=== PATIENT | female | born 1955 | race Caucasian/White ===

== ENCOUNTER → 2019-07-29 11:00 | Outpatient (BNVA) | payer MEDICARE, SELFPAY | PROVIDERS: Family Provider Registered Nurse; PCP Registered Nurse; Visit Provider Registered Nurse | DX: E11.9 Type 2 diabetes mellitus without complications (principal); I10 Essential (primary) hypertension; M54.5 Low back pain; J44.9 Chronic obstructive pulmonary disease, unspecified; E66.01 Morbid (severe) obesity due to excess calories; Z68.41 Body mass index [BMI] 40.0-44.9, adult | CPT/HCPCS: 80053; 83036 ==

== ENCOUNTER 2019-08-01 12:46 | Outpatient (RCR) | payer MEDICARE, SELFPAY | END 2019-08-24 23:59 | disposition home or self-care (01) | LOC: SPT 12:46 | PROVIDERS: Family Provider Registered Nurse; PCP Registered Nurse; Referring Provider Registered Nurse; Visit Provider Registered Nurse | DX: M54.5 Low back pain (principal) | CPT/HCPCS: 97110; 97161; G0283 ==

== ENCOUNTER 2019-08-19 12:07 | Outpatient (CLI) | payer MEDICARE, SELFPAY ==
--- NOTE | 2019-08-19 12:22 | XRR_ITS ---
PROCEDURE INFORMATION: Exam: XR Left Foot Exam date and time: 08/19/2019 12:35 PM Age: 64 years old Clinical indication: Left lateral heel pain x 2 weeks. TECHNIQUE: Imaging protocol: XR Left foot. Views: 1 or 2 views. COMPARISON: No relevant prior studies available. FINDINGS: Bones/joints: No fracture. No dislocation. Minimal degenerative change in the midfoot. There is an Achilles tendon insertion enthesophyte. Soft tissues: No acute soft tissue abnormality. XR/XR foot LT 2V [id number] IMPRESSION: No acute osseous abnormality.
== END 2019-08-19 12:08 | disposition home or self-care (01) ==
LOC: RAD 12:10
PROVIDERS: Family Provider Registered Nurse; PCP Registered Nurse
DX: M79.672 Pain in left foot (principal)
CPT/HCPCS: 73620

== ENCOUNTER 2019-08-21 16:05 | Outpatient (REF) | payer SELFPAY ==
[2019-08-21 21:30] LABS: Estmated Average Glucose 128; Hemoglobin A1C 6.1 % (4.0-6.0)
[2019-08-22 05:09] LABS: Chol HDL Ratio 3.11 mg/dL (0.0-4.40); Cholesterol 146 mg/dL (0-200); Glucose 106 mg/dL (65-115); HDL Cholesterol 47 mg/dL (60-100); LDL Cholesterol Calculated 72 mg/dL (50-129); LDL HDL Ratio 1.53 RATIO (0.00-3.22); Triglycerides 135 mg/dL (0-150)
== END 2019-08-21 16:06 | disposition home or self-care (01) ==
LOC: LAB 16:05
PROVIDERS: Family Provider Registered Nurse; PCP Registered Nurse; Visit Provider Dermatology
DX: Z13.9 Encounter for screening, unspecified (principal)
CPT/HCPCS: 80061; 82947; 83036

== ENCOUNTER 2019-08-25 06:00 | Outpatient (RCR) | payer MEDICARE, SELFPAY | END 2019-09-24 23:59 | disposition home or self-care (01) | LOC: SPT 06:00 | PROVIDERS: Family Provider Registered Nurse; PCP Registered Nurse; Referring Provider Registered Nurse; Visit Provider Registered Nurse | DX: M54.5 Low back pain (principal) | CPT/HCPCS: 97110; G0283 ==

== ENCOUNTER 2019-09-27 13:39 | Outpatient (CLI) | payer MEDICARE, SELFPAY ==
--- NOTE | 2019-09-27 13:55 | MR_ITS ---
WS: [id number] MRI LUMBAR SPINE NONCONTRAST TECHNIQUE: Sagittal T1, T2 and STIR imaging. Axial T1 and T2 imaging. CLINICAL INFORMATION: lumbar back pain COMPARISON: None. FINDINGS: Mild lumbar curve. No acute compression. No high-grade central canal stenosis. Small disc protrusions in the lower thoracic spine at T10-11, T11-T12, and T12-L1. L1-L2: Mild annular bulging with slight effacement of ventral thecal sac. Mild facet arthropathy. Spi nal canal and foramen are patent. L2-L3: No significant disc bulging. Mild facet arthropathy. Spinal canal and foramen are patent. L3-L4: Mild disc bulging with slight effacement of ventral thecal sac. Narrowing subarticular recess bilaterally. Moderate facet arthropathy. Small right foraminal protrusion with moderate right foramin al narrowing. Contact of the exiting L3 nerve root. Left foramen is patent. L4-L5: Left eccentric disc bulging L4-5 encroaches on the far exiting left L4 nerve root. Mild to mod erate facet arthropathy. Right foramen is patent. Spinal canal is patent. L5-S1: Mild disc bulging with osteophytic ridging. Slight effacement of ventral thecal sac. Moderate left greater than right foraminal narrowing. Slight contact exiting L5 nerve roots bilaterally. Moder ate to advanced facet arthropathy. Moderate spondylitic changes cervical spine with disc osteophyte protrusion at C6-C7 and moderate [place] tral canal stenosis. Slight contact and indentation on the cervical cord. This can be further evaluat ed with cervical spine MRI. MR/MR lumbar spine wo con* [id number] IMPRESSION: 1. Mild lumbar curve. No acute compression. No high-grade central canal stenos is. 2. Right foraminal disc protrusion L3-4 contacts the exiting right L3 nerve ro ot with moderate right foraminal narrowing. Correlation for right L3 nerve root symptoms. 3. Left eccentric disc bulging L4-5 encroaches on the exiting L4 nerve root wi th mild to moderate left foraminal narrowing. 4. Disc osteophyte complex L5-S1 with osteophytic ridging. Moderate bilateral foraminal narrowing left greater than right with contact of the exiting L5 nerv e roots. 5. Advanced facet arthropathy L5-S1. 6. Central disc osteophyte protrusion in the cervical spinal sky diver imaging at C6-7 with moderate central canal stenosis and contact of the cervical cord. Thi s can be further evaluated with cervical spine MRI.
== END 2019-09-27 13:40 | disposition home or self-care (01) ==
LOC: RADWPI 13:45
PROVIDERS: Family Provider Registered Nurse; PCP Registered Nurse; Visit Provider Registered Nurse
DX: M51.26 Other intervertebral disc displacement, lumbar region (principal); V89.2XXD Person injured in unspecified motor-vehicle accident, traffic, subsequent encounter; M25.78 Osteophyte, vertebrae; M47.817 Spondylosis without myelopathy or radiculopathy, lumbosacral region
CPT/HCPCS: 72148

== ENCOUNTER → 2019-10-11 11:49 | Outpatient (BNVA) | payer MEDICARE, SELFPAY | PROVIDERS: Family Provider Registered Nurse; PCP Registered Nurse; Referring Provider Registered Nurse; Visit Provider Anesthesiology Pain Medicine | DX: M43.06 Spondylolysis, lumbar region (principal); M47.816 Spondylosis without myelopathy or radiculopathy, lumbar region; M54.16 Radiculopathy, lumbar region; E11.40 Type 2 diabetes mellitus with diabetic neuropathy, unspecified; M47.812 Spondylosis without myelopathy or radiculopathy, cervical region; Z79.891 Long term (current) use of opiate analgesic | CPT/HCPCS: 99204 ==

== ENCOUNTER → 2019-10-22 09:41 | Outpatient (BNVA) | payer MEDICARE, SELFPAY | PROVIDERS: Family Provider Registered Nurse; PCP Registered Nurse; Visit Provider Specialist | DX: G43.019 Migraine without aura, intractable, without status migrainosus (principal); Z87.891 Personal history of nicotine dependence | CPT/HCPCS: 99213 ==

== ENCOUNTER 2019-11-04 11:10 | Outpatient (CLI) | payer MEDICARE, SELFPAY ==
--- NOTE | 2019-11-04 11:19 | CT_ITS ---
WS: [id number] CT LUNG CANCER SCREENING DLP: 98.35 mGy.cm DIvol: 2.73 mGy CLINICAL INFORMATION SCREENING VISIT: Baseline COMPARISON: None available. FINDINGS Diagnostic quality: Satisfactory Comments: None. Lung Nodules: 5 mm pleural-based nodule LEFT lower lobe, image 260 of series 3. May or may not contai n a central calcification. There is an additional less than 2 mm nodule periphery LEFT upper lobe, im age 83 of series 3. Benign granuloma periphery RIGHT upper lobe. Lungs: Mild emphysema. Mild pulmonary hyperexpansion. Heart: Mildly enlarged cardiac chambers. There is increased pericardial fat deposition. Multiple mode rate atherosclerosis of the [place] coronary arteries. Other findings: Enlarged pulmonary artery with a maximum diameter of 3.2 cm. No visualized adenopathy . CT/CT lung screening [id number] IMPRESSION: LUNG-RADS: 2S-Benign Appearance or Behavior with Significant Findings FOLLOW UP: 12 Month: Continue annual screening with LDCT 1. Mild pulmonary hypertension. 2. Multiple moderate coronary artery atherosclerosis.
== END 2019-11-04 11:11 | disposition home or self-care (01) ==
LOC: RAD 11:13
PROVIDERS: Family Provider Registered Nurse; PCP Registered Nurse; Visit Provider Registered Nurse
DX: Z12.2 Encounter for screening for malignant neoplasm of respiratory organs (principal); Z87.891 Personal history of nicotine dependence; I27.20 Pulmonary hypertension, unspecified; I25.10 Atherosclerotic heart disease of native coronary artery without angina pectoris; J43.8 Other emphysema
CPT/HCPCS: 99214; G0297

== ENCOUNTER → 2019-11-19 13:44 | Outpatient (BNVA) | payer MEDICARE, SELFPAY | PROVIDERS: Family Provider Registered Nurse; PCP Registered Nurse; Visit Provider Anesthesiology Pain Medicine | DX: M47.816 Spondylosis without myelopathy or radiculopathy, lumbar region (principal); M54.5 Low back pain | CPT/HCPCS: 64493; 64494; 64495; J2001; J3490 ==

== ENCOUNTER → 2019-12-04 09:21 | Outpatient (BNVA) | payer MEDICARE, SELFPAY | PROVIDERS: Family Provider Registered Nurse; PCP Registered Nurse; Visit Provider Anesthesiology Pain Medicine | DX: M54.16 Radiculopathy, lumbar region (principal); M47.816 Spondylosis without myelopathy or radiculopathy, lumbar region; M43.06 Spondylolysis, lumbar region; M47.812 Spondylosis without myelopathy or radiculopathy, cervical region; E11.40 Type 2 diabetes mellitus with diabetic neuropathy, unspecified | CPT/HCPCS: 99213; 99214 ==

== ENCOUNTER → 2019-12-13 13:38 | Outpatient (BNVA) | payer MEDICARE, SELFPAY | PROVIDERS: Family Provider Registered Nurse; PCP Registered Nurse; Visit Provider Anesthesiology Pain Medicine | DX: M47.816 Spondylosis without myelopathy or radiculopathy, lumbar region (principal); M54.5 Low back pain; Z79.891 Long term (current) use of opiate analgesic | CPT/HCPCS: 64493; 64494; 64495; J2001; J3490 ==

== ENCOUNTER → 2019-12-18 08:51 | Outpatient (BNVA) | payer MEDICARE, SELFPAY | PROVIDERS: Family Provider Registered Nurse; PCP Registered Nurse; Visit Provider Registered Nurse | DX: E11.9 Type 2 diabetes mellitus without complications (principal) | CPT/HCPCS: 80053; 80061; 83036; 85025 ==

== ENCOUNTER → 2019-12-26 13:46 | Outpatient (BNVA) | payer MEDICARE, SELFPAY | PROVIDERS: Family Provider Registered Nurse; PCP Registered Nurse; Visit Provider Anesthesiology Pain Medicine | DX: M47.812 Spondylosis without myelopathy or radiculopathy, cervical region (principal); M43.06 Spondylolysis, lumbar region; M47.816 Spondylosis without myelopathy or radiculopathy, lumbar region; M54.16 Radiculopathy, lumbar region; E11.40 Type 2 diabetes mellitus with diabetic neuropathy, unspecified; Z79.891 Long term (current) use of opiate analgesic | CPT/HCPCS: 99213; 99214 ==

== ENCOUNTER → 2020-01-14 09:38 | Outpatient (BNVA) | payer MEDICARE, SELFPAY | PROVIDERS: Family Provider Registered Nurse; PCP Registered Nurse; Visit Provider Anesthesiology Pain Medicine | DX: M47.816 Spondylosis without myelopathy or radiculopathy, lumbar region (principal); M43.06 Spondylolysis, lumbar region | CPT/HCPCS: 64635; 64636; J1030 ==

== ENCOUNTER 2020-01-23 09:17 | Outpatient (CLI) | payer MEDICARE, SELFPAY ==
--- NOTE | 2020-01-23 09:28 | USCV_ITS ---
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 PROCEDURES: Venous duplex imaging was performed in only the right lower extremity. The following venous structures were evaluated: common femoral vein, profunda vein, proximal portion of the greater saphenous vein, superficial femoral vein, and the popliteal vein. In addition, the posterior tibial and peroneal trunk were evaluated. Serial compression, augmentation maneuvers, and spectral Doppler flow evaluation were performed. FINDINGS: Normal 2-D Doppler and augmentation and compressibility throughout the lower extremity venous structures. Additional imaging through the proximal calf veins also reveals no thrombus. Limited evaluation of the greater saphenous vein is patent with no thrombus.. CONCLUSIONS No evidence of right lower extremity DVT. Sai Boyle MD (Electronically Signed) Final Date: 23 January 2020 11:26 S
== END 2020-01-23 09:18 | disposition home or self-care (01) ==
LOC: RAD 09:20
PROVIDERS: Family Provider Registered Nurse; PCP Registered Nurse; Visit Provider Nurse Practitioner Family
DX: M79.661 Pain in right lower leg (principal)
CPT/HCPCS: 93971

== ENCOUNTER → 2020-01-27 13:35 | Outpatient (BNVA) | payer MEDICARE, SELFPAY | PROVIDERS: Family Provider Registered Nurse; PCP Registered Nurse; Visit Provider Anesthesiology Pain Medicine | DX: M47.816 Spondylosis without myelopathy or radiculopathy, lumbar region (principal); M43.06 Spondylolysis, lumbar region; M54.16 Radiculopathy, lumbar region; M47.812 Spondylosis without myelopathy or radiculopathy, cervical region | CPT/HCPCS: 64635; 64636; 99213; J1030 ==

== ENCOUNTER → 2020-02-12 08:27 | Outpatient (BNVA) | payer MEDICARE, SELFPAY | PROVIDERS: Family Provider Registered Nurse; PCP Registered Nurse; Visit Provider Anesthesiology Pain Medicine | DX: M43.06 Spondylolysis, lumbar region (principal); M47.816 Spondylosis without myelopathy or radiculopathy, lumbar region; M54.16 Radiculopathy, lumbar region; M47.812 Spondylosis without myelopathy or radiculopathy, cervical region | CPT/HCPCS: 99213 ==

== ENCOUNTER 2020-03-03 11:07 | Outpatient (CLI) | payer MEDICARE, SELFPAY ==
--- NOTE | 2020-03-03 11:14 | XRR_ITS ---
PROCEDURE INFORMATION: Exam: XR Pelvis Exam date and time: 03/03/2020 11:39 AM Age: 64 years old Clinical indication: Pelvic pain; Patient HX: Since Monday; Additional info: Pelvis pain TECHNIQUE: Imaging protocol: XR pelvis. Views: 1 or 2 view. COMPARISON: CR Hip 2-3v LEFT wwo Pelv* [id number] 05/28/2018 12:35 PM FINDINGS: Bones/joints: No fracture. No hip dislocation. Minimal hip joint degeneration bilaterally. The symphysis pubis and sacroiliac joints are not diastatic. Findings compatible with osteitis pubis. Slight irregularity of the margins of the right sacroiliac joint with subchondral sclerosis suggesting unilateral sacroiliitis. Soft tissues: No acute soft tissue abnormality. XR/XR pelvis min 3V [id number] IMPRESSION: No acute osseous abnormality. See above for other information and correlate with the location of the patient's pelvic pain.
--- NOTE | 2020-03-03 11:14 | XRR_ITS ---
PROCEDURE INFORMATION: Exam: XR Lumbosacral Spine, 2 or 3 Views Exam date and time: 03/03/2020 11:39 AM Age: 64 years old Clinical indication: Low back pain; Patient HX: Since Monday; Additional info: Lumbar and pelvis pain TECHNIQUE: Imaging protocol: XR of the lumbosacral spine, 2 or 3 views. COMPARISON: CR - Lumbar Spine 2-3 views* [id number] 06/07/2019 12:49:15 PM FINDINGS: Vertebrae: The lumbar vertebral bodies maintain height and alignment. The facets align normally. There is multilevel disc degeneration, with a vacuum disc at L5-S1. Facet arthropathy is most prominent at L5-S1, and to lesser extent at L3-L4 and L4-L5. No acute fracture. Schmorl's node formation at the superior endplate of the L3 vertebral body. Soft tissues: No acute soft tissue abnormality. Organs: Suspect left nephrolithiasis. Enteric contents projects over the right kidney on the frontal view. XR/XR lumbar spine 2-3V* [id number] IMPRESSION: Multilevel degenerative changes.
== END 2020-03-03 11:08 | disposition home or self-care (01) ==
LOC: RAD 11:12
PROVIDERS: PCP Registered Nurse; Visit Provider Registered Nurse
DX: M54.5 Low back pain (principal); R10.2 Pelvic and perineal pain
CPT/HCPCS: 72100; 72190

== ENCOUNTER 2020-03-11 14:16 | Outpatient (CLI) | payer MEDICARE, SELFPAY ==
--- NOTE | 2020-03-11 14:42 | CT_ITS ---
WS: [id number] CT ABDOMEN PELVIS TECHNIQUE: Noncontrast CT of the abdomen and pelvis with coronal and sagittal reformatted images. CLINICAL INFORMATION: lumbar pain. COMPARISON: None. DLP: 1238.[address] scans at [facility] use at least one of these dose optimization techniques: automat ed exposure control; mA and/or kV adjustment per patient size (includes targeted exams where dose is matched to clinical indication); or iterative reconstruction. FINDINGS: Noncontrast liver is normal. Hepatomegaly with enlargement of the right hepatic lobe. Normal GE junct ion. Lung bases are well aerated. Tiny subpleural pulmonary nodule left lower lobe laterally measurin g 4 mm. Fatty atrophy of the pancreas. Adrenal glands are normal. Nonobstructing left renal parenchymal calcu li the largest measuring 6 mm. No obstructing renal or ureteral calculi. Normal caliber abdominal aor ta. Calcification. Normal small and large bowel. No evidence of small or large bowel obstruction. No periaortic or ingui nal lymphadenopathy. No pelvic lymphadenopathy. No free fluid in the pelvis. Mild spondylitic changes lumbar spine. CT/CT kidney stone [id number] IMPRESSION: 1. No obstructing renal or ureteral calculi. No hydronephrosis in either kidne y. 2. Nonobstructing left renal parenchymal calculi the largest measuring 6 mm. 3. Hepatomegaly with enlargement of the right hepatic lobe. Recommend correlat ion with liver function tests. 4. 4 mm subpleural nodule left lower lobe. Recommend 6 month follow-up. 5. Normal appendix in the right lower quadrant. 6. Sigmoid diverticulosis. No evidence of acute diverticulitis. 7. No other significant findings.
== END 2020-03-11 14:17 | disposition home or self-care (01) ==
LOC: RADWPI 14:21
PROVIDERS: PCP Registered Nurse; Visit Provider Registered Nurse
DX: M54.5 Low back pain (principal); N20.0 Calculus of kidney; R16.0 Hepatomegaly, not elsewhere classified; K57.30 Diverticulosis of large intestine without perforation or abscess without bleeding
CPT/HCPCS: 74176

== ENCOUNTER → 2020-04-10 10:07 | Outpatient (BNVA) | payer MEDICARE, SELFPAY | PROVIDERS: PCP Registered Nurse; Visit Provider Anesthesiology Pain Medicine | DX: M43.06 Spondylolysis, lumbar region (principal); M54.16 Radiculopathy, lumbar region; M47.816 Spondylosis without myelopathy or radiculopathy, lumbar region; M47.812 Spondylosis without myelopathy or radiculopathy, cervical region; E11.40 Type 2 diabetes mellitus with diabetic neuropathy, unspecified; Z79.891 Long term (current) use of opiate analgesic | CPT/HCPCS: 99214 ==

== ENCOUNTER → 2020-04-15 12:31 | Outpatient (BNVA) | payer MEDICARE, SELFPAY | PROVIDERS: PCP Registered Nurse; Visit Provider Anesthesiology Pain Medicine | DX: M54.16 Radiculopathy, lumbar region (principal); Z79.891 Long term (current) use of opiate analgesic | CPT/HCPCS: 64483; 64484; J1040; J3490 ==

== ENCOUNTER → 2020-04-29 10:31 | Outpatient (BNVA) | payer MEDICARE, SELFPAY | PROVIDERS: PCP Registered Nurse; Visit Provider Anesthesiology Pain Medicine | DX: M54.16 Radiculopathy, lumbar region (principal); M47.816 Spondylosis without myelopathy or radiculopathy, lumbar region; M43.06 Spondylolysis, lumbar region; M47.812 Spondylosis without myelopathy or radiculopathy, cervical region; Z79.891 Long term (current) use of opiate analgesic | CPT/HCPCS: 99212; 99213 ==

== ENCOUNTER → 2020-06-23 10:49 | Outpatient (BNVA) | payer MEDICARE, SELFPAY | PROVIDERS: PCP Registered Nurse; Visit Provider Anesthesiology Pain Medicine | DX: M54.5 Low back pain (principal); M54.16 Radiculopathy, lumbar region; M47.816 Spondylosis without myelopathy or radiculopathy, lumbar region; M43.06 Spondylolysis, lumbar region; M47.812 Spondylosis without myelopathy or radiculopathy, cervical region | CPT/HCPCS: 99213 ==

== ENCOUNTER → 2020-07-01 00:01 | Outpatient (BNVA) | payer MEDICARE, SELFPAY | PROVIDERS: PCP Registered Nurse; Visit Provider Registered Nurse | DX: I10 Essential (primary) hypertension (principal); E11.9 Type 2 diabetes mellitus without complications; E55.9 Vitamin D deficiency, unspecified; E78.5 Hyperlipidemia, unspecified | CPT/HCPCS: 80053; 80061; 82306; 83036; 85025 ==

== ENCOUNTER 2020-07-28 09:00 | Outpatient (CLI) | payer MEDICARE, SELFPAY ==
--- NOTE | 2020-07-28 09:10 | XRR_ITS ---
PROCEDURE INFORMATION: Exam: XR Bilateral Knees, Standing AP Exam date and time: 07/28/2020 9:25 AM Age: 65 years old Clinical indication: Pain; Prior surgery; Surgery type: Right knee replacement; Additional info: M25.561 - pain in right knee TECHNIQUE: Imaging protocol: XR of the bilateral knees. Views: Standing AP. COMPARISON: No relevant prior studies available. FINDINGS: Bones/joints: Right knee arthroplasty. Mild degenerative change in the left knee. Soft tissues: Unremarkable soft tissues. XR/[place] [id number] IMPRESSION: Right knee arthroplasty and mild degenerative change in the left knee.
== END 2020-07-28 09:01 | disposition home or self-care (01) ==
PROVIDERS: PCP Registered Nurse; Visit Provider Registered Nurse
DX: M25.562 Pain in left knee (principal); M25.561 Pain in right knee; Z96.651 Presence of right artificial knee joint
CPT/HCPCS: 73565

== ENCOUNTER → 2020-08-18 11:16 | Outpatient (BNVA) | payer MEDICARE, SELFPAY | PROVIDERS: PCP Registered Nurse; Visit Provider Anesthesiology Pain Medicine | DX: M54.16 Radiculopathy, lumbar region (principal); M47.816 Spondylosis without myelopathy or radiculopathy, lumbar region; M43.06 Spondylolysis, lumbar region; M47.812 Spondylosis without myelopathy or radiculopathy, cervical region; Z79.891 Long term (current) use of opiate analgesic | CPT/HCPCS: 99214 ==

== ENCOUNTER 2020-09-18 08:23 | Outpatient (CLI) | payer MEDICARE, SELFPAY ==
--- NOTE | 2020-09-18 08:45 | US_ITS ---
WS: [id number] RIGHT UPPER QUADRANT ULTRASOUND HISTORY: R10.11 - Right upper quadrant pain COMPARISON: None available. Liver: 23.3 cm in length. Markedly enlarged and severely fatty liver with attenuation. This is a very difficult evaluation of the liver due to marked attenuation. The entire liver is not visualized. Gallbladder: Normally distended gallbladder with no stones or wall thickening. CBD: 0.4 cm Pancreas: Not visualized. Right kidney: 12.3 cm in length. Limited visualization. No abnormality identified. Aorta and IVC: Unremarkable abdominal aorta and IVC. No ascites. US/US gall bladder [id number] IMPRESSION: 1. Very limited evaluation of the RIGHT upper quadrant due to body habitus. 2. Severe hepatomegaly and hepatic steatosis.
--- NOTE | 2020-09-18 10:00 | CT_ITS ---
WS: [id number] CT CHEST WITHOUT INTRAVENOUS CONTRAST HISTORY: R91.1 - Solitary pulmonary nodule TECHNIQUE: Contiguous 5 mm axial imaging performed on the thorax. Coronal and sagittal reformats are submitted. All CT scans at [facility] use at least one of these dose optimization techniq ues: automated exposure control; mA and/or kV adjustment per patient size (includes targeted exams wh ere dose is matched to clinical indication); or iterative reconstruction. CONTRAST: None DLP: 1035.16 mGy.cm COMPARISON: 11/04/2019 Lungs and central airway: Diffuse haziness and mosaic attenuation bilaterally and chronic emphysema. Stable granuloma measures 2 mm in the RIGHT upper lobe. Stable noncalcified 5 mm nodule in the periph katie of the LEFT lower lobe which is also described on 11/04/2019. Pleura: Normal. No pleural effusion. Heart and pericardium: Mild enlargement of the heart. Mediastinum and kaley: Small benign lymph nodes. Vessels: Mild atherosclerosis aorta. Mild enlargement of the pulmonary artery. Chest wall and lower neck: No soft tissue masses. Upper abdomen: Severe hepatic steatosis and hepatomegaly. Bilateral nonobstructing renal calcificatio ns in the upper poles. No adrenal mass. Osseous structures: No destructive process. CT/CT chest wo con [id number] IMPRESSION: 1. No change in the RIGHT upper and LEFT lower lobe subcentimeter pulmonary no dules since 11/04/2019. Recommend 12 month follow-up. As the patient originally had a lung screening CT evaluation on 11/04/2019. Follow-up should be in 12 megan hs as a lung screening CT. 2. Severe hepatomegaly and hepatic steatosis. 3. Pulmonary hypertension and marked emphysema.
== END 2020-09-18 08:24 | disposition home or self-care (01) ==
LOC: US 08:25
PROVIDERS: PCP Registered Nurse; Visit Provider Registered Nurse
DX: R10.11 Right upper quadrant pain (principal); I27.20 Pulmonary hypertension, unspecified; J43.9 Emphysema, unspecified; R16.0 Hepatomegaly, not elsewhere classified; K76.0 Fatty (change of) liver, not elsewhere classified; R91.8 Other nonspecific abnormal finding of lung field
CPT/HCPCS: 71250; 76705

== ENCOUNTER → 2020-10-29 10:10 | Outpatient (BNVA) | payer MEDICARE, SELFPAY | PROVIDERS: PCP Registered Nurse; Visit Provider Anesthesiology Pain Medicine | DX: M54.16 Radiculopathy, lumbar region (principal); M47.816 Spondylosis without myelopathy or radiculopathy, lumbar region; M43.06 Spondylolysis, lumbar region; M47.812 Spondylosis without myelopathy or radiculopathy, cervical region; Z79.891 Long term (current) use of opiate analgesic | CPT/HCPCS: 99214 ==

== ENCOUNTER → 2020-11-03 13:19 | Outpatient (BNVA) | payer MEDICARE, SELFPAY | PROVIDERS: PCP Registered Nurse; Visit Provider Anesthesiology Pain Medicine | DX: Z01.812 Encounter for preprocedural laboratory examination (principal); M54.16 Radiculopathy, lumbar region; E11.9 Type 2 diabetes mellitus without complications; Z79.891 Long term (current) use of opiate analgesic | CPT/HCPCS: 64483; 64484; J1100; J3490 ==

== ENCOUNTER 2020-11-18 12:40 | Outpatient (CLI) | payer MEDICARE, SELFPAY ==
--- NOTE | 2020-11-18 13:30 | USCV_ITS ---
Janet Pillai Age: 65 Gender: F : 1955 Exam Date: 11/18/2020 12:56 Ordering Phys: Thiago Rodriguez M.D ([email or web address]) Technologist: ELEUTERIO Exam Location: [facility] [place] Indication: SOB BP: / HR: 54 Rhythm: Sinus Technical Quality: Adequate MEASUREMENTS (Male / Female) Normal Values 2D ECHO LV Diastolic Diameter PLAX 5.4 cm 4.2 - 5.9 / 3.9 - 5.3 cm LV Systolic Diameter PLAX 3.6 cm LV Chamber Size 3.4 cm IVS Diastolic Thickness 1.1 cm 0.6 - 1.0 / 0.6 - 0.9 cm IVS Systolic Thickness 1.6 cm LVPW Diastolic Thickness 2.0 cm 0.6 - 1.0 / 0.6 - 0.9 cm LVPW Systolic Thickness 2.5 cm RV Chamber Size 4.0 cm LVOT Diameter 2.0 cm LV Ejection Fraction 2D Teich 61.4 % LV Ejection Fraction MOD 2C 46.9 % LV Ejection Fraction 2C AL 50.9 % LA Diameter 4.1 cm LA Width 3.9 cm LA Height 5.9 cm RA Width 2.6 cm RA Height 4.0 cm Aorta at Sinotubular Diameter 2.8 cm M-MODE LV Diastolic Diameter MM 4.9 cm 4.2 - 5.9 / 3.9 - 5.3 cm LV Systolic Diameter MM 3.6 cm LV Ejection Fraction MM Teich 53.1 % IVS Diastolic Thickness MM 1.1 cm 0.6 - 1.0 / 0.6 - 0.9 cm IVS Systolic Thickness MM 1.3 cm LVPW Diastolic Thickness MM 1.5 cm 0.6 - 1.0 / 0.6 - 0.9 cm LVPW Systolic Thickness MM 1.9 cm Aortic Annulus Diameter 2.9 cm LA Ao Ratio MM 1.3 MV E Point Septal Separation 0.8 cm DOPPLER AV Peak Velocity 167.3 cm/s LVOT Peak Velocity 126.3 cm/s AV Area Cont Eq vti 2.8 cm squared AV Area Cont Eq pk 2.5 cm squared MV Area PHT 2.2 cm squared Mitral E to A Ratio 1.4 MV E' Velocity 59.0 cm/s Mitral E to MV E' Ratio 9.8 Mitral E to LV E' Lateral Ratio 9.9 Mitral E to LV E' Septal Ratio 9.6 TR Peak Velocity 117.0 cm/s TR Peak Gradient 5.5 mmHg TV Peak E Velocity 75.0 cm/s Right Atrial Pressure 3.0 mmHg Pulmonary Artery Systolic Pressu 8.5 mmHg PV Peak Velocity 109.0 cm/s RV Acceleration Time 0.2 s RV Ejection Time 0.4 s RV AcT/ET 0.4 FINDINGS Left Ventricle Left ventricle is mildly dilated. LV systolic function is normal with EF of 55-60%. No regional wall motion abnormalities. Normal diastolic function Right Ventricle The right ventricle is normal in size and function. Right Atrium The right atrium is normal in size. Left Atrium The left atrium is dilated Mitral Valve Mild mitral annular calcification without significant stenosis or prolapse. There is no mitral regurgitation. Aortic Valve Structurally normal aortic valve without significant sclerosis or stenosis. There is no aortic regurgitation. Tricuspid Valve Structurally normal tricuspid valve without significant stenosis or regurgitation. Insufficient TR jet to calculate RVSP Pulmonic Valve Structurally normal pulmonic valve without significant stenosis. There is no pulmonic regurgitation. Pericardium Normal pericardium without effusion. Aorta Normal ascending aorta dimension. CONCLUSIONS Left ventricle is mildly dilated LV systolic function is normal with EF of 55-60% Diastolic function is normal Left atrium is mildly dilated Mild mitral annular calcification is noted No comparison studies are available Thiago Rodriguez MD (Electronically Signed) Final Date: 22 Nov 2020 16:25 S
== END 2020-11-18 12:41 ==
LOC: US 12:41
PROVIDERS: PCP Registered Nurse; Visit Provider Internal Medicine
DX: G89.29 Other chronic pain (principal); M51.17 Intervertebral disc disorders with radiculopathy, lumbosacral region; M47.816 Spondylosis without myelopathy or radiculopathy, lumbar region; M43.06 Spondylolysis, lumbar region; M47.812 Spondylosis without myelopathy or radiculopathy, cervical region; M79.605 Pain in left leg; Z87.891 Personal history of nicotine dependence; Z79.891 Long term (current) use of opiate analgesic
CPT/HCPCS: 93306; 99214

== ENCOUNTER 2021-01-12 07:22 | Outpatient (CLI) | payer MEDICARE, SELFPAY ==
[2021-01-12 07:54] VITALS: BMI 47.2
--- NOTE | 2021-01-12 07:55 | NMCV_ITS ---
NM pepe perf SPECT r/s* [id number] Janet Pillai Age: 65 Gender: F : 1955 Exam Date: 01/12/2021 07:55 Ordering Phys: Thiago Rodriguez M.D ([email or web address]) Technologist: ZAHEER Cavazos Exam Location: [facility] Indications: SHORTNESS OF BREATH STRESS TEST [facility] for [facility] IMAGE PROTOCOL Rest/Stress 1 Lexiscan Day Radiopharmaceutical Dose (mCi) Administration Site Administered by Rest: Tc-99m 10.8 IV ZAHEER Lopez Sestamibi Stress:Tc-99m 32.5 IV ZAHEER Lopez Sestamibi Rest: 12-Jan-2021 60 Discovery 630 Stress: 12-Jan-2021 30 Discovery 630 0.4mg Lexiscan. Images obtained in supine and prone position. SPECT RESULTS Technical Quality: Excellent Raw Data Analysis: Normal, Breast attenuation Image Corrections: No attenuation or motion correction applied Summed Stress Score: 0 Summed Rest Score: 1 Summed Difference Score: 0 PERFUSION FINDINGS There is homogenous uptake of radiotracer throughout the myocardium. No evidence of ischemia FUNCTIONAL RESULTS (calculated via Gated SPECT) Stress Image LV EF (%): 75 Stress EDV (mL):156 TID: 1.03 Stress ESV (mL):39 FUNCTIONAL FINDINGS: LV systolic function is normal IMPRESSIONS 1. Normal myocardial perfusion imaging with no evidence of ischemia 2. LV systolic function is normal Thiago Rodriguez MD (Electronically Signed) Final Date: 12 January 2021 12:14 S
--- NOTE | 2021-01-12 07:55 | ECG_ITS ---
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 Interpretive Statements NAME OF STUDY: LEXISCAN SESTAMIBI STRESS TEST INDICATION: [Shortness of Breath] Procedure: At the baseline, the blood pressure was 150/67 mmHg with a heart rate of 44 bpm. The electrocardiogram showed sinus bradycardia, right bundle branch block with normal ST and T's. The Lexiscan was infused over a period of 20 seconds. A total of 0.4 mg of Lexiscan was infused. The stress phase was continued for a total of 5 minutes. Heart rate was at the end of stress phase was 50 bpm and a blood pressure of 165/78 mmHg. The EKG at the peak infusion revealed since normal sinus rhythm with no significant ST-T wave changes. Sestamibi was injected 20 seconds after the Lexiscan infusion. Blood pressure at the end of recovery phase was 158/76mmHg with a heart rate of 51 bpm. Conclusion: 1. Normal EKG response to Lexiscan infusion 2. No Lexiscan induced chest pain or cardiac arrhythmia. 3. Normal blood pressure and heart rate response. 4. Sestamibi/sestamibi perfusion scan pending; see separate report. Electronically Signed On 02-08-2021 9:28:10 CDT by Thiago Rodriguez M.D. [email or web address]
[2021-01-12 10:40] VITALS: BP 158/76; PULSE 51
[2021-01-12] MEDS: regadenoson 0.4 Mg/5 ml Syringe IVP (10:40)
== END 2021-01-12 07:23 | disposition home or self-care (01) ==
LOC: CDL 07:25
PROVIDERS: PCP Registered Nurse; Visit Provider Internal Medicine
DX: R06.02 Shortness of breath (principal)
CPT/HCPCS: 78452; 93017; A9500; J2785

== ENCOUNTER 2021-01-13 08:13 | Outpatient (CLI) | payer MEDICARE, SELFPAY ==
--- NOTE | 2021-01-13 08:30 | CT_ITS ---
WS: [id number] CT scan of the abdomen and pelvis with Oral and IV contrast. Additional two-dimensional coronal and s agittal reconstruction was performed. 01/13/2021 Clinical Data: UPPER ABDOMINAL PAIN, HEPATOMEGALY Comparison: CT abdomen and pelvis, 03/11/2020. DLP: 1228.[address] scans at [facility] use at least one of these dose optimization techniques: automat ed exposure control; mA and/or kV adjustment per patient size (includes targeted exams where dose is matched to clinical indication); or iterative reconstruction. Findings: The lower lungs show no nodules, masses or effusions. The gallbladder, spleen, adrenal glands and pancreas are normal. The liver is slightly enlarged but t here are no cysts, masses or dilated intrahepatic ducts. The kidneys show equal bilateral contrast excretion with nonobstructing left renal calculi. No hydron ephrosis, masses or cysts are seen.. The abdominal aorta is normal in size with calcification in the wall.. No appendicitis or diverticulitis is seen. Oral contrast is in the stomach and small bowel and there is no bowel dilatation. No abscess, adenopathy, ascites, mass, obstruction or free air is seen. The bladder is unremarkable. No inguinal hernia is seen. The bones of the lower thorax, lumbar spine, pelvis, and hips show degenerative change of the lumbar vertebral bodies. CT/CT abdomen pelvis w con* [id number] Impression: 1. Negative for acute intra-abdominal or pelvic abnormalities. 2. Nonobstructing left renal calculi.
[2021-01-13] MEDS: iohexol 300 mg/mL 50 mL Btl PO (08:58)
[2021-01-13] MEDS: iodixanol 320 mg/mL 100mL Btl IV (10:21)
== END 2021-01-13 08:14 | disposition home or self-care (01) ==
LOC: RADWPI 08:17
PROVIDERS: PCP Registered Nurse; Visit Provider Dietitian, Registered
DX: R10.10 Upper abdominal pain, unspecified (principal); R16.0 Hepatomegaly, not elsewhere classified; N20.0 Calculus of kidney
CPT/HCPCS: 74177; Q9967

== ENCOUNTER → 2021-02-10 10:10 | Outpatient (BNVA) | payer MEDICARE, SELFPAY | PROVIDERS: PCP Registered Nurse; Visit Provider Anesthesiology Pain Medicine | DX: G89.29 Other chronic pain (principal); M51.17 Intervertebral disc disorders with radiculopathy, lumbosacral region; M47.816 Spondylosis without myelopathy or radiculopathy, lumbar region; M43.06 Spondylolysis, lumbar region; M47.812 Spondylosis without myelopathy or radiculopathy, cervical region; M25.562 Pain in left knee; M25.561 Pain in right knee; Z79.891 Long term (current) use of opiate analgesic | CPT/HCPCS: 99214 ==

== ENCOUNTER → 2021-02-19 10:19 | Outpatient (BNVA) | payer MEDICARE, SELFPAY | PROVIDERS: PCP Registered Nurse; Visit Provider Registered Nurse | DX: E13.29 Other specified diabetes mellitus with other diabetic kidney complication (principal); N28.9 Disorder of kidney and ureter, unspecified; I10 Essential (primary) hypertension; E55.9 Vitamin D deficiency, unspecified | CPT/HCPCS: 80053; 80061; 83036 ==

== ENCOUNTER → 2021-03-10 10:13 | Outpatient (BNVA) | payer MEDICARE, SELFPAY | PROVIDERS: PCP Registered Nurse; Visit Provider Anesthesiology Pain Medicine | DX: G89.29 Other chronic pain (principal); M19.90 Unspecified osteoarthritis, unspecified site; M54.16 Radiculopathy, lumbar region; M47.816 Spondylosis without myelopathy or radiculopathy, lumbar region; M43.06 Spondylolysis, lumbar region; M47.812 Spondylosis without myelopathy or radiculopathy, cervical region; Z79.891 Long term (current) use of opiate analgesic | CPT/HCPCS: 99214 ==

== ENCOUNTER 2021-03-12 09:37 | Outpatient (CLI) | payer MEDICARE, SELFPAY ==
--- NOTE | 2021-03-12 09:48 | XR_ITS ---
WS: [id number] KNEES AP STANDING TECHNIQUE: Bilateral AP weightbearing view. CLINICAL INFORMATION: M19.90 - Unspecified osteoarthritis, unspecified site COMPARISON: None. FINDINGS: Postoperative changes right TKA. No evidence of hardware loosening. Moderate to advanced joint space narrowing medial joint compartment left knee. XR/[place] [id number] IMPRESSION: 1. Postoperative changes right TKA. 2. Moderate to advanced degenerative narrowing left medial joint compartment. Kellgren-Stanisalv Classification: grade 3 (moderate): moderate multiple osteoph ytes, definite narrowing of joint space and some sclerosis and possible deformi ty of bone ends
== END 2021-03-12 09:38 | disposition home or self-care (01) ==
PROVIDERS: PCP Registered Nurse; Visit Provider Anesthesiology Pain Medicine
DX: M19.90 Unspecified osteoarthritis, unspecified site (principal); Z96.651 Presence of right artificial knee joint
CPT/HCPCS: 73565

== ENCOUNTER 2021-04-08 14:27 | Outpatient (CLI) | payer MEDICARE, SELFPAY ==
--- NOTE | 2021-04-08 15:00 | MM_ITS ---
WS: [id number] BILATERAL SCREENING DIGITAL MAMMOGRAM WITH CAD HISTORY: Z12.31 - Encounter for screening mammogram for malignant ... COMPARISON: 03/20/2019 Bilateral CC and MLO views submitted. Computer aided detection analyzed. Breast composition: There are scattered areas of fibroglandular density. No suspicious masses, microc alcifications or architectural distortion. MM/[place] [id number] IMPRESSION: BI-RADS: 1-Negative FOLLOW UP: 1 Year Follow-up
--- NOTE | 2021-04-08 15:58 | XR_ITS ---
WS: [id number] SCREENING DEXA SCAN [place] CLINICAL INFORMATION: M81.0 - Age-related osteoporosis without current patholog... COMPARISON: None. FINDINGS: The L1-L4 bone mineral density measures 1.264 g/cm2. This corresponds to a T score score of 0.7 and Z score of 1.0. Left femoral neck bone mineral density measures 1.067 g/cm2. This corresponds to a T score of 0.5 and Z score of 0.8. Right femoral neck bone mineral density measures 1.009 g/cm2. This corresponds to a T score 0.0of and Z score of 0.3. Mean femoral neck bone mineral density measures 1.038 g/cm2. This corresponds to a T score of 0.2 and Z score of 0.5. XR/XR DEXA axial skeleton* [id number] IMPRESSION: Normal bone mineralization. Patient's FRAX calculated 10 year probability for major osteoporotic fracture i s 5.4 % and osteoporotic hip fracture is 0.1%.
== END 2021-04-08 14:28 | disposition home or self-care (01) ==
LOC: RADSHAW 14:33
PROVIDERS: PCP Registered Nurse; Visit Provider Registered Nurse
DX: Z12.31 Encounter for screening mammogram for malignant neoplasm of breast (principal); M81.0 Age-related osteoporosis without current pathological fracture
CPT/HCPCS: 77067; 77080

== ENCOUNTER 2021-04-14 13:09 | Outpatient (CLI) | payer MEDICARE, SELFPAY ==
--- NOTE | 2021-04-14 13:13 | CT_ITS ---
WS: [id number] LDCT LUNG CANCER SCREENING TECHNIQUE: Noncontrast CT of the chest with coronal and sagittal reformatted images. CLINICAL INFORMATION: Z87.891 - Personal history of nicotine dependence COMPARISON: CT chest September 18, 2020 DLP: 57.35 mGy.cm DIvol: 1.[address] scans at [facility] use at least one of these dose optimization techniques: automat ed exposure control; mA and/or kV adjustment per patient size (includes targeted exams where dose is matched to clinical indication); or iterative reconstruction. FINDINGS: 2 or 3 stable subcentimeter subpleural nodules largest measuring 5 mm left lower lobe unchanged the p rior studies. No new suspicious pulmonary opacities. No mediastinal or hilar lymphadenopathy. Cardiom egaly. Aortic and coronary calcification. Enlarged central pulmonary arteries. Advanced chronic emphy sematous changes. Hepatomegaly diffuse fatty infiltration. CT/CT lung screening [id number] IMPRESSION: LUNG-RADS: 2-Benign Appearance or Behavior FOLLOW UP: 12 Month: Continue annual screening with LDCT
== END 2021-04-14 13:10 | disposition home or self-care (01) ==
LOC: RAD 13:11
PROVIDERS: PCP Registered Nurse; Visit Provider Registered Nurse
DX: Z12.2 Encounter for screening for malignant neoplasm of respiratory organs (principal); Z87.891 Personal history of nicotine dependence
CPT/HCPCS: 71271

== ENCOUNTER 2021-05-05 10:06 | Inpatient (IN) | payer MEDICARE, SELFPAY ==
[2021-05-05 10:12] VITALS: BP 160/89; PULSE 69; RESP 18; TEMP 36.8; O2SAT 96; BMI 49.4
--- NOTE | 2021-05-05 10:31 | CT_ITS ---
WS: [id number] CT ABDOMEN AND PELVIS WITH CONTRAST HISTORY: mons pubis abscess/cellulitis TECHNIQUE: Imaging performed of the abdomen and pelvis with IV contrast. Single phase imaging of the abdomen. Coronal and sagittal reformats are submitted. All CT scans at [facility] use at [facility] one of these dose optimization techniques: automated exposure control; mA and/or kV adjustment per patient size (includes targeted exams where dose is matched to clinical indication); or iterative re construction. IV CONTRAST: Omnipaque 350; 95 mL IV. Oral contrast: No DLP: 2025.56 mGy.cm COMPARISON: 01/13/2021 Lower thorax: Lung bases are clear. Heart is normal size. Small hiatal hernia. Liver/biliary system: Mildly enlarged liver with hepatic steatosis. No mass or bile duct dilatation. Normal portal vein. Gallbladder: Normal. No gallstones or wall thickening. No pericholecystic fluid. Pancreas: Normal size pancreas and pancreatic duct. No adjacent inflammation. Spleen: Normal size with granulomata. Adrenal glands: Normal. Right kidney: Normal size kidney. Nonobstructing 2 mm calcification in the mid pelvis. Left kidney: Normal size kidney. Lobulated calcification in the upper pole measures 7 mm. No obstruct ion. Aorta: Moderate atherosclerotic plaque throughout the aorta. No aneurysm. Lymphadenopathy: There are a few small lymph nodes in the pelvis along the obturator and deep obturat or regions but no adenopathy. Greater amount of lymph nodes is in the LEFT inguinal region. Free fluid: None. GI tract: Normal appendix. No GI tract obstruction. There are a few diverticula in the sigmoid but no acute inflammation. Abdominal wall: Fat-containing umbilical hernia. Pelvis: No free fluid in the pelvis. The uterus is slightly lobulated and enlarged consistent with a fibroid uterus. No adnexal masses. There is a moderate amount of soft tissue inflammation centered over the inferior LEFT pelvis consist ent with cellulitis. This area of inflammation actually extends superiorly along the anterior LEFT pe lvis to near the superior iliac crest. Cellulitis extends over length of 19 cm and transversely at it s maximum by 10 cm. No abscess is identified. No focal fluid collection. Bones: Schmorl's node in the superior endplate of L3. CT/CT abdomen pelvis w con* [id number] IMPRESSION: 1. Large area of cellulitis centered over the LEFT inferior pelvis with no abs cess. 2. Area of cellulitis extends over a length of 19 cm towards the iliac crest a nd width of 10 cm. 3. A few small reactive lymph nodes near the LEFT inguinal region. 4. Fibroid uterus. 5. Hepatomegaly and hepatic steatosis. 6. Nonobstructing bilateral renal calculi.
--- NOTE | 2021-05-05 10:33 | W.ED.SKABFB ---
Documented by User: RICHARD Mike 05/05/21 13:01 HPI - Skin/Abscess/Foreign Bdy General: Chief complaint: Skin/Abscess/Foreign Body Stated complaint: abscess groin area Time Seen by Provider: 05/05/21 10:10 Source: patient Mode of arrival: ambulatory Limitations: no limitations History of Present Illness: HPI narrative: Patient is a 66-year-old female here for concerns of an abscess to her lower abdomen/pelvis that has been present over the past 4 to 5 days. Patient tells me she has noticed a scant amount of drainage from the wound. She has not been running fevers. She reports one previous abscess to her perineal region that did not require I&D or hospitalization. Patient is a diabetic. She was seen by her primary care provider and referred to the ED for further evaluation. Patient denies any previous history of staph/MRSA. MD complaint: abscess/boil Onset (ago): day(s) Tetanus up to date: yes Severity: moderate Pain Consistency: constant Context: none Associated symptoms: Reports no associated symptoms; Deny chills, fever(s), nausea or vomiting Treatments prior to arrival: none Review of Systems Const: Denies: fever(s), chills, body aches, fatigue or malaise Card: Denies: chest pain Resp: Denies: dyspnea GI: Denies: abdominal pain, nausea, vomiting or diarrhea : Denies: flank pain or dysuria Musc: Denies: neck pain, back pain, extremity pain or joint pain Skin/Breast: Reports: other (abscess to pelvis region) [facility] PFSH: Medical History Anxiety and depression Aortic insufficiency dx 10/14/02 Dr Kam Martinez Arthralgia of both knees Back pain, lumbosacral Chronic joint pain Common migraine with intractable migraine COPD (chronic obstructive pulmonary disease) Essential hypertension Former heavy cigarette smoker (20-39 per day) Quit in 2009 Gastroesophageal reflux disease without esophagitis Hyperlipidemia Hypothyroidism (acquired) Left Achilles tendinitis Obesity Opioid contract exists Personal history of nicotine dependence Quit 2009 Type 2 diabetes mellitus Venous insufficiency of both lower extremities Surgical History History of delivery History of knee replacement 2009 Stented coronary artery 2 stents done 02/16/96 in [place] Family History Other Cancer Diabetes Social History Quit status (tobacco): has quit using tobacco Year quit tobacco: 2009 Alcohol intake: never Lives independently: No Household members: spouse Marital status: Current occupational status: unemployed History of recent travel: No Current gender identity: Female Physical Exam Const: COMMON NORMALS: no acute distress, patient oriented x3, no limitations and alert NUTRITIONAL APPEARANCE: obese morbidly obese ORIENTATION/CONSCIOUSNESS: Yes awake, Yes oriented to person, Yes oriented to place and Yes oriented to time HENMT: COMMON NORMALS: normocephalic and atraumatic HEAD & SCALP: normocephalic and atraumatic Resp: COMMON NORMALS: normal respiratory effort and clear to auscultation bilaterally AUSCULTATION: clear to auscultation bilaterally Cardio: COMMON NORMALS: regular rate and regular rhythm RATE: regular rate RHYTHM: regular rhythm GI: COMMON NORMALS: Soft to palpation INSPECTION: Yes normal to inspection (apart from documented findings) AUSCULTATION: Yes normoactive bowel sounds PALPATION: Yes Soft to palpation OTHER: patient has a very large erythematous indurated abscess and surrounding cellulitis to mons pubis; cellulitis affects her entire mons region but does not extend into genitalia/perineum; abscess is not actively draining but does appear to have a central location of skin breakdown Neuro: COMMON NORMALS: patient oriented x3 SENSORIUM/ORIENTATION: Yes alert, Yes oriented to person, Yes oriented to place and Yes oriented to time Course Vital Signs: Vital signs: Vital Signs Temperature 97.7 F 05/06/21 07:29 Pulse Rate 75 05/06/21 07:36 Respiratory Rate 18 05/06/21 07:36 Blood Pressure 147/79 05/06/21 07:29 Pulse Oximetry 95 05/06/21 07:36 MDM - Skin/Abscess/Foreign Bdy MDM Narrative: Medical decision making narrative: Patient is a morbidly obese diabetic with an extensive cellulitis and probable abscess to mons pubis region. Will obtain labs, CT imaging, and start on IV abx. Dr. Bliss made aware of patient as she will require admission. CT scan showing no obvious abscess. Spoke to Dr. Zaldivar who recommends IV Vancomycin and Zosyn and admit to hospitalist. He would be more than happy to consult on patient if necessary. Lab Data: Labs: Lab Results 05/05/21 05/05/21 05/05/21 10:39 10:39 10:39 WBC 13.2 10^3/uL H 10 ^3/uL (4.0-10.0) RBC 4.65 10^6/uL 10^6 /uL (4.1-5.3) Hgb 13.3 g/dL g/dL (11.5-15.3) Hct 41.9 % % (37.0-47.0) MCV 90.1 fl fl (81-99) MCH 28.6 pg pg (28.0-34.0) MCHC 31.7 g/dL g/dL (30.0-36.0) RDW 13.6 % % (12.1-15.1) Plt Count 239 10^3/cmm 10^3 /cmm (130-400) MPV 11.2 fL H fL (7.4-10.4) Neut % (Auto) 68.9 % % Lymph % (Auto) 19.5 % % Kenton % (Auto) 8.5 % % Eos % (Auto) 1.2 % % Baso % (Auto) 0.8 % % Neut # (Auto) 9.13 10^3/uL H 10 ^3/uL (1.8-7.7) Lymph # (Auto) 2.6 10^3/uL 10^3/ uL (0.8-4.8) Kenton # (Auto) 1.1 10^3/uL H 10^ 3/uL (0.2-0.9) Eos # (Auto) 0.2 10^3/uL 10^3/ uL (0.0-0.8) Baso # (Auto) 0.1 10^3/uL 10^3/ uL (0.0-0.1) Nucleated RBC % (a uto) 0 % % Nucleated RBCs # 0.0 /100WBC /100W BC Sodium 135 mmol/L L mmol /L (136-145) Potassium 3.7 mmol/L mmol/L (3.5-5.1) Chloride 97 mmol/L L mmol/ L (98-107) Carbon Dioxide 27 mmol/L mmol/L (22-29) Anion Gap 14.7 (5-19) BUN 13 mg/dL mg/dL (8-23) Creatinine 0.7 mg/dL mg/dL (0.5-0.9) GFR Calculation 84.2 mL/min L mL/ min (90-130) Glucose 157 mg/dL H mg/dL (65-115) POC Glucose Calculated Osmolal ity 283 mOsm/kg L mOs m/kg (285-295) Calcium 9.2 mg/dL mg/dL (8.5-10.5) Total Bilirubin 0.3 mg/dL mg/dL (0.15-1.2) AST 10 U/L U/L (0-32) ALT 11 U/L U/L (0-33) Alkaline Phosphata se 72 IU/L IU/L (35-105) C-Reactive Protein 165.6 mg/L H mg/L (0.0-4.9) Total Protein 7.1 g/dL g/dL (6.6-8.7) Albumin 3.7 g/dL g/dL (3.5-5.2) Globulin 3.4 g/dL g/dL (1.3-4.6) Urine Color Yellow (Yellow) Urine Appearance Clear (CLEAR) Urine pH 5 (5-7) Ur Specific Gravit y 1.015 (1.005-1.030) Urine Protein Neg (Negative) Urine Glucose (UA) Norm (Normal) Urine Ketones Negative (Negative) Urine Blood Neg (Negative) Urine Nitrate Negative (Negative) Urine Bilirubin Neg (Negative) Urine Urobilinogen Norm mg/dL mg/dL (Negative) Ur Leukocyte Lindsey ase Negative (Negative) 05/05/21 14:17 WBC RBC Hgb Hct MCV MCH MCHC RDW Plt Count MPV Neut % (Auto) Lymph % (Auto) Kenton % (Auto) Eos % (Auto) Baso % (Auto) Neut # (Auto) Lymph # (Auto) Kenton # (Auto) Eos # (Auto) Baso # (Auto) Nucleated RBC % (a uto) Nucleated RBCs # Sodium Potassium Chloride Carbon Dioxide Anion Gap BUN Creatinine GFR Calculation Glucose POC Glucose 110 mg/dL mg/dL (70-110) Calculated Osmolal ity Calcium Total Bilirubin AST ALT Alkaline Phosphata se C-Reactive Protein Total Protein Albumin Globulin Urine Color Urine Appearance Urine pH Ur Specific Gravit y Urine Protein Urine Glucose (UA) Urine Ketones Urine Blood Urine Nitrate Urine Bilirubin Urine Urobilinogen Ur Leukocyte Lindsey ase Imaging Data^: CT Abd/Pel: Radiologist's impression: [id number] [facility].[place], [place] [address]ZV Scan ReportSigned Patient: Janet Pillai #: [id number]: [id number]#:[id number]/Sex: 66 / FADM Date: 05/05/21Loc: ERRoom/Bed:Attending Dr: Ordering Provider/Ordering MD: Jyotsna Suárez Date of Service: 05/05/21 Procedure(s): CT abdomen pelvis w con* [id number] Accession Number(s): [id number] Report Number: [id number] WS: [id number] CT ABDOMEN AND PELVIS WITH CONTRAST HISTORY: mons pubis abscess/cellulitis TECHNIQUE: Imaging performed of the abdomen and pelvis with IV contrast. Single phase imaging of the abdomen. Coronal and sagittal reformats are submitted. All CT scans at [email or web address] use at least one of these dose optimization techniques: automated exposure control; mA and/or kV adjustment per patient size (includes targeted exams where dose is matched to clinical indication); or iterative reconstruction. IV CONTRAST: Omnipaque 350; 95 mL IV. Oral contrast: No DLP: 2026.56 mGy.cm COMPARISON: 01/13/2021 Lower thorax: Lung bases are clear. Heart is normal size. Small hiatal hernia. Liver/biliary system: Mildly enlarged liver with hepatic steatosis. No mass or bile duct dilatation. Normal portal vein. Gallbladder: Normal. No gallstones or wall thickening. No pericholecystic fluid. Pancreas: Normal size pancreas and pancreatic duct. No adjacent inflammation. Spleen: Normal size with granulomata. Adrenal glands: Normal. Right kidney: Normal size kidney. Nonobstructing 2 mm calcification in the mid pelvis. Left kidney: Normal size kidney. Lobulated calcification in the upper pole measures 7 mm. No obstruction. Aorta: Moderate atherosclerotic plaque throughout the aorta. No aneurysm. Lymphadenopathy: There are a few small lymph nodes in the pelvis along the obturator and deep obturator regions but no adenopathy. Greater amount of lymph nodes is in the LEFT inguinal region. Free fluid: None. GI tract: Normal appendix. No GI tract obstruction. There are a few diverticula in the sigmoid but no acute inflammation. Abdominal wall: Fat-containing umbilical hernia. Pelvis: No free fluid in the pelvis. The uterus is slightly lobulated and enlarged consistent with a fibroid uterus. No adnexal masses. There is a moderate amount of soft tissue inflammation centered over the inferior LEFT pelvis consistent with cellulitis. This area of inflammation actually extends superiorly along the anterior LEFT pelvis to near the superior iliac crest. Cellulitis extends over length of 19 cm and transversely at its maximum by 10 cm. No abscess is identified. No focal fluid collection. Bones: Schmorl's node in the superior endplate of L3. CT/CT abdomen pelvis w con* [id number] IMPRESSION: 1. Large area of cellulitis centered over the LEFT inferior pelvis with no abscess. 2. Area of cellulitis extends over a length of 19 cm towards the iliac crest and width of 10 cm. 3. A few small reactive lymph nodes near the LEFT inguinal region. 4. Fibroid uterus. 5. Hepatomegaly and hepatic steatosis. 6. Nonobstructing bilateral renal calculi. 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 Patient's care was discussed, and care was transferred from to Alex Bliss DO. Coding Level of Care Code ED Environmental Remediation Consultant for [facility] Fwd Exam Detailed Documented by User: Alex Bliss DO 05/06/21 10:15 HPI - Skin/Abscess/Foreign Bdy General: Chief complaint: Skin/Abscess/Foreign Body Stated complaint: abscess groin area Time Seen by Provider: 05/05/21 10:10 History of Present Illness: HPI narrative: 66 a female presents emergency room with red and inflamed area on the mons pubis. She had a little bit of drainage, generalized not feeling well. MD complaint: abscess/boil Onset (ago): day(s) Location: genitals (Mons pubis) Relieving factors: none Exacerbating factors: none PFSH ED PFSH: Medical History Anxiety and depression Aortic insufficiency dx 10/14/02 Dr Kam Martinez Arthralgia of both knees Back pain, lumbosacral Chronic joint pain Common migraine with intractable migraine COPD (chronic obstructive pulmonary disease) Essential hypertension Former heavy cigarette smoker (20-39 per day) Quit in 2009 Gastroesophageal reflux disease without esophagitis Hyperlipidemia Hypothyroidism (acquired) Left Achilles tendinitis Obesity Opioid contract exists Personal history of nicotine dependence Quit 2009 Type 2 diabetes mellitus Venous insufficiency of both lower extremities Surgical History History of delivery History of knee replacement 2009 Stented coronary artery 2 stents done 02/16/96 in [place] Family History Other Cancer Diabetes Social History Quit status (tobacco): has quit using tobacco Year quit tobacco: 2009 Alcohol intake: never Lives independently: No Household members: spouse Marital status: Current occupational status: unemployed History of recent travel: No Current gender identity: Female Physical Exam Const: COMMON NORMALS: no acute distress GENERAL APPEARANCE: cooperative and comfortable NUTRITIONAL APPEARANCE: obese morbidly obese ORIENTATION/CONSCIOUSNESS: Yes awake, Yes oriented to person, Yes oriented to place and Yes oriented to time HENMT: COMMON NORMALS: normocephalic, atraumatic and hearing grossly normal bilaterally HEAD & SCALP: normocephalic and atraumatic Neck/C-Spine: COMMON NORMALS: no JVD Resp: COMMON NORMALS: normal respiratory effort, No retractions, No use of accessory muscles and clear to auscultation bilaterally AUSCULTATION: clear to auscultation bilaterally Cardio: COMMON NORMALS: no JVD, regular rate, regular rhythm and No murmurs present (Cardio) RATE: regular rate RHYTHM: regular rhythm GI: COMMON NORMALS: Soft to palpation and No hepatosplenomegaly present AUSCULTATION: Yes normoactive bowel sounds PALPATION: Yes Soft to palpation, No Tenderness to palpation present (GI), No Guarding due to palpation present (GI) and Yes No hepatosplenomegaly present Extremity: COMMON NORMALS: normal to inspection, capillary refill normal, no clubbing, cyanosis or edema, no calf tenderness and no pedal edema Neuro: SENSORIUM/ORIENTATION: Yes oriented to person, Yes oriented to place and Yes oriented to time Skin: NARRATIVE SKIN EXAM: Extensive area of indurated erythematous skin. Nonfluctuant on palpation. Central necrotic area with scant drainage appears semipurulent. Does not extend to the labia. Course Vital Signs: Vital signs: Vital Signs Temperature 97.7 F 05/06/21 07:29 Pulse Rate 75 05/06/21 07:36 Respiratory Rate 18 05/06/21 07:36 Blood Pressure 147/79 05/06/21 07:29 Pulse Oximetry 95 05/06/21 07:36 MDM - Skin/Abscess/Foreign Bdy MDM Narrative: Medical decision making narrative: Chart reviewed and patient discussed with midlevel. Agree with assessment and plan. Patient seen and evaluated see above orders written discussed with hospitalist Lab Data: Labs: Lab Results 05/05/21 05/05/21 05/05/21 10:39 10:39 10:39 WBC 13.2 10^3/uL H 10 ^3/uL (4.0-10.0) RBC 4.65 10^6/uL 10^6 /uL (4.1-5.3) Hgb 13.3 g/dL g/dL (11.5-15.3) Hct 41.9 % % (37.0-47.0) MCV 90.1 fl fl (81-99) MCH 28.6 pg pg (28.0-34.0) MCHC 31.7 g/dL g/dL (30.0-36.0) RDW 13.6 % % (12.1-15.1) Plt Count 239 10^3/cmm 10^3 /cmm (130-400) MPV 11.2 fL H fL (7.4-10.4) Neut % (Auto) 68.9 % % Lymph % (Auto) 19.5 % % Kenton % (Auto) 8.5 % % Eos % (Auto) 1.2 % % Baso % (Auto) 0.8 % % Neut # (Auto) 9.13 10^3/uL H 10 ^3/uL (1.8-7.7) Lymph # (Auto) 2.6 10^3/uL 10^3/ uL (0.8-4.8) Kenton # (Auto) 1.1 10^3/uL H 10^ 3/uL (0.2-0.9) Eos # (Auto) 0.2 10^3/uL 10^3/ uL (0.0-0.8) Baso # (Auto) 0.1 10^3/uL 10^3/ uL (0.0-0.1) Nucleated RBC % (a uto) 0 % % Nucleated RBCs # 0.0 /100WBC /100W BC Sodium 135 mmol/L L mmol /L (136-145) Potassium 3.7 mmol/L mmol/L (3.5-5.1) Chloride 97 mmol/L L mmol/ L (98-107) Carbon Dioxide 27 mmol/L mmol/L (22-29) Anion Gap 14.7 (5-19) BUN 13 mg/dL mg/dL (8-23) Creatinine 0.7 mg/dL mg/dL (0.5-0.9) GFR Calculation 84.2 mL/min L mL/ min (90-130) Glucose 157 mg/dL H mg/dL (65-115) POC Glucose Calculated Osmolal ity 283 mOsm/kg L mOs m/kg (285-295) Calcium 9.2 mg/dL mg/dL (8.5-10.5) Total Bilirubin 0.3 mg/dL mg/dL (0.15-1.2) AST 10 U/L U/L (0-32) ALT 11 U/L U/L (0-33) Alkaline Phosphata se 72 IU/L IU/L (35-105) C-Reactive Protein 165.6 mg/L H mg/L (0.0-4.9) Total Protein 7.1 g/dL g/dL (6.6-8.7) Albumin 3.7 g/dL g/dL (3.5-5.2) Globulin 3.4 g/dL g/dL (1.3-4.6) Urine Color Yellow (Yellow) Urine Appearance Clear (CLEAR) Urine pH 5 (5-7) Ur Specific Gravit y 1.015 (1.005-1.030) Urine Protein Neg (Negative) Urine Glucose (UA) Norm (Normal) Urine Ketones Negative (Negative) Urine Blood Neg (Negative) Urine Nitrate Negative (Negative) Urine Bilirubin Neg (Negative) Urine Urobilinogen Norm mg/dL mg/dL (Negative) Ur Leukocyte Lindsey ase Negative (Negative) 05/05/21 14:17 WBC RBC Hgb Hct MCV MCH MCHC RDW Plt Count MPV Neut % (Auto) Lymph % (Auto) Kenton % (Auto) Eos % (Auto) Baso % (Auto) Neut # (Auto) Lymph # (Auto) Kenton # (Auto) Eos # (Auto) Baso # (Auto) Nucleated RBC % (a uto) Nucleated RBCs # Sodium Potassium Chloride Carbon Dioxide Anion Gap BUN Creatinine GFR Calculation Glucose POC Glucose 110 mg/dL mg/dL (70-110) Calculated Osmolal ity Calcium Total Bilirubin AST ALT Alkaline Phosphata se C-Reactive Protein Total Protein Albumin Globulin Urine Color Urine Appearance Urine pH Ur Specific Gravit y Urine Protein Urine Glucose (UA) Urine Ketones Urine Blood Urine Nitrate Urine Bilirubin Urine Urobilinogen Ur Leukocyte Lindsey ase Discharge Plan Discharge Patient Disposition: Admitted As Inpatient Admit Provider: Sherly Colon Clinical Impression: Cellulitis, Morbid obesity with BMI of 45.0-49.9, adult, 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 Patient's care was discussed, and care was transferred from to Alex Bliss DO. Coding Level of Care Code ED Environmental Remediation Consultant for [facility] Fwd Exam Detailed
[2021-05-05 10:48] LABS: Basophils # 0.1 10^3/uL (0.0-0.1); Basophils % 0.8 %; Eosinophils # 0.2 10^3/uL (0.0-0.8); Eosinophils % 1.2 %; Hematocrit 41.9 % (37.0-47.0); Hemoglobin 13.3 g/dL (11.5-15.3); Lymphocytes # 2.6 10^3/uL (0.8-4.8); Lymphocytes % 19.5 %; Mean Corpuscular HGB Conc 31.7 g/dL (30.0-36.0); Mean Corpuscular Hemoglobin 28.6 pg (28.0-34.0); Mean Corpuscular Volume 90.1 fl (81-99); Mean Platelet Volume 11.2 fL (7.4-10.4); Monocytes # 1.1 10^3/uL (0.2-0.9); Monocytes % 8.5 %; Neutrophils # 9.13 10^3/uL (1.8-7.7); Neutrophils % 68.9 %; Nucleated Red Blood Cells % 0 %; Platelet Count 239 10^3/cmm (130-400); Red Blood Count 4.65 10^6/uL (4.1-5.3); Red Cell Distribution Width 13.6 % (12.1-15.1); White Blood Count 13.2 10^3/uL (4.0-10.0)
[2021-05-05] MEDS: vancomycin 1,000 MG in sodium chloride 0.9% 250 ML 250 MG IV (10:54)
[2021-05-05 11:09] LABS: Alanine Aminotransferase 11 U/L (0-33); Albumin Level 3.7 g/dL (3.5-5.2); Alkaline Phosphatase 72 IU/L (35-105); Anion Gap 14.7 (5-19); Aspartate Amino Transferase 10 U/L (0-32); Blood Urea Nitrogen 13 mg/dL (8-23); C Reactive Protein 165.6 mg/L (0.0-4.9); Calcium 9.2 mg/dL (8.5-10.5); Carbon Dioxide 27 mmol/L (22-29); Chloride 97 mmol/L (98-107); Globulin 3.4 g/dL (1.3-4.6); Glomerular Filtration Rate 84.2 mL/min (90-130); Glucose 157 mg/dL (65-115); Osmolality Calculated 283 mOsm/kg (285-295); Potassium 3.7 mmol/L (3.5-5.1); Sodium 135 mmol/L (136-145); Total Bilirubin 0.3 mg/dL (0.15-1.2); Total Protein 7.1 g/dL (6.6-8.7)
[2021-05-05 11:21] LABS: Add Urine Microscopic? NO; Charge for UA Resulting for Rev
[2021-05-05 11:32] LABS: Bilirubin Urine Neg (Negative); Blood Urine Neg (Negative); Glucose Urine UA Norm (Normal); Ketones Urine Negative (Negative); Leukocyte Esterase Urine Negative (Negative); Nitrate Urine Negative (Negative); Protein Urine Neg (Negative); Specific Gravity, Urine 1.015 (1.005-1.030); Urine Appearance Clear (CLEAR); Urine Color Yellow (Yellow); Urobilinogen Urine Norm (Negative); pH Urine 5 (5-7)
--- NOTE | 2021-05-05 11:47 | PC.PHAR ---
PT STATES SHE TAKES CARE OF HER OWN MEDICATIONS-PT STATES SHE HASNT STARTED TAKING HER TRULICITY YET-PT STATES SHE STOP TAKING [facility] ABOUT 2 WEEKS AGO EXT MED HISTORY SHOWS LAST FILLED 04/15/21 90D/S
[2021-05-05] MEDS: iohexol 350 mg/mL 100 mL Btl IV (11:51)
[2021-05-05] MEDS: piperacillin-tazobactam 3.375 GM in sodium chloride 0.9% (plus) 50 ML IV ×2 (12:17→21:01)
[2021-05-05 12:59] VITALS: BP 152/91; PULSE 62; O2SAT 98
[2021-05-05 14:21] LABS: Glucose Point of Care 110 mg/dL (70-110)
--- NOTE | 2021-05-05 16:35 | P.HP_ITS ---
Providers/Chief Complaint Admitting Physician: Sherly Colon MD Primary Care Provider: DIONI Bruno Chief Complaint: abscess groin area History of Present Illness Janet Pillai is a 66 year old female with past medical history of anxiety depression aortic insufficiency, arthralgia of both knees, chronic back pain, chronic joint pain, history of migraines, COPD, hypertension, GERD, hyperlipidemia, hypothyroidism, obesity, type 2 diabetes mellitus and chronic venous insufficiency of both lower extremities, coronary artery disease status post PCI 1995 presented to the ER after being sent by her primary care doctor for an abscess in her left groin that has been present for 5 days. Patient told her doctor that it was draining and it was very red and swollen. It also had scant amount of drainage. She has not had any fevers at home. He does report 1 abscess to her perineal region that did not require I&D or hospitalization in the past. Patient does have a history of diabetes. She denies any chest pain, shortness of breath, abdominal pain, diarrhea, nausea, vomiting, body aches, flank pain, urinary complaints. She has not shaved or waxed the area recently. ED course: Blood pressure 160/89, respiratory rate 18, pulse rate 69, temperature 98.2, pulse ox 96%. Patient was examined by ER doctor she does have extensive cellulitis and probable abscess to mons pubis region. Labs were obtained, CT imaging was ordered and patient was started on IV vancomycin and Zosyn. CT scan did not show any obvious abscess. It did show large area of cellulitis centered over left inferior pelvis. Area of cellulitis extends over a length of 19 cm toward iliac crest and width of 10 cm. Few small reactive lymph nodes near the left inguinal region present. Hepatomegaly and hepatic steatosis present. Dr. Zaldivar general surgery was called for possible debridement and evaluation. He has been consulted. Review of Systems General: Reports: 10 or more systems reviewed and unremarkable except in HPI and below Medications/Allergies Home Medications Medication Instructions Recorded Confirmed Last Taken Type aspirin 81 mg tablet,delayed 81 mg PO QAM 06/21/19 05/05/21 05/05/21 07:00 History release budesonide-formoterol HFA 160 2 puff INHALATION BID PRN 06/21/19 05/05/21 Unknown History mcg-4.5 mcg/actuation aerosol inhaler cetirizine 10 mg tablet 10 mg PO QAM 06/21/19 05/05/21 05/05/21 History docusate sodium 100 mg capsule See Rx Instructions .ROUTE 10/11/19 05/05/21 05/05/21 History .COMPLEX cap 100 MG gabapentin 600 mg tablet 600 mg PO TID #90 tab 02/10/21 05/05/21 05/05/21 07:00 Rx metoprolol tartrate 100 mg tablet 100 mg PO BID #180 tab 03/09/21 05/05/21 05/05/21 07:00 Rx Diabetic Shoes #1 ea 03/17/21 05/05/21 Unknown Rx amlodipine 10 mg PO QAM 05/05/21 05/05/21 05/05/21 07:00 History cholecalciferol (vitamin D3) 50,000 unit PO Q7D 05/05/21 05/05/21 Unknown History dexlansoprazole [Dexilant] 60 mg PO BEDTIME 05/05/21 05/05/21 05/04/21 History dulaglutide [Trulicity] 1.5 mg SUBCUT .weekly 05/05/21 05/05/21 Unknown History losartan-hydrochlorothiazide 1 tab PO QAM 05/05/21 05/05/21 05/05/21 07:00 History metformin 500 mg PO BEDTIME 05/05/21 05/05/21 05/04/21 History paroxetine HCl 20 mg PO BEDTIME 05/05/21 05/05/21 05/04/21 History Allergies Allergy/AdvReac Type Severity Reaction Status Date / Time Sulfa (Sulfonamide Allergy Unknown Verified 05/05/21 11:33 Antibiotics) sulfamethoxazole Allergy itching Verified 05/05/21 11:33 [From Bactrim] trimethoprim [From Bactrim] Allergy itching Verified 05/05/21 11:33 PFSH Acute PFSH: Medical History Anxiety and depression Aortic insufficiency dx 10/14/02 Dr Kam Martinez Arthralgia of both knees Back pain, lumbosacral Chronic joint pain Common migraine with intractable migraine COPD (chronic obstructive pulmonary disease) Essential hypertension Former heavy cigarette smoker (20-39 per day) Quit in 2009 Gastroesophageal reflux disease without esophagitis Hyperlipidemia Hypothyroidism (acquired) Left Achilles tendinitis Obesity Opioid contract exists Personal history of nicotine dependence Quit 2010 Type 2 diabetes mellitus Venous insufficiency of both lower extremities Surgical History History of delivery History of knee replacement 2009 Stented coronary artery 2 stents done 02/16/96 in [place] Family History Other Cancer Diabetes Social History Quit status (tobacco): has quit using tobacco Year quit tobacco: 2009 Alcohol intake: never Lives independently: No Household members: spouse Marital status: Current occupational status: unemployed History of recent travel: No Current gender identity: Female Vitals/I&O/Wt Last Vital Signs Temp 98.2 F 05/05/21 10:12 Pulse 62 05/05/21 12:59 Resp 18 05/05/21 10:12 BP 152/91 05/05/21 12:59 Pulse Ox 98 05/05/21 12:59 Weight last 48 hrs Weight 143.335 kg Physical Exam Narrative: EXAM NARRATIVE: General: Alert oriented x3, patient seen laying in bed appearing comfortable. HEENT: Normocephalic, atraumatic, EOMI, breathing room air Cardio: Regular rate rhythm, normal S1-S2, heart sounds slightly muffled secondary to large body habitus, no murmurs rubs gallops, Respiratory: Good bilateral air entry, no wheezes no rhonchi appreciated GI: Abdomen soft, nontender, obese rounded large abdomen, bowel sounds + Large erythematous induration and surrounding cellulitis present to mons pubis area. Redness does not extend into the perineum at this point. There is no drainage noted right now but there is a little bit of skin breakdown present. Area is warm. Slightly tender to palpation. Erythema extends to pannus. Behavior: Appropriate and cooperative Extremities: No edema or cyanosis present. Venous stasis changes appreciated on lower extremities. Data : 05/05/21 10:39 05/05/21 10:39 Micro: Microbiology 05/05/21 13:22 Blood Culture - Preliminary Blood SPECIMEN COLLECTED 05/05/21 13:16 Blood Culture - Preliminary Blood SPECIMEN COLLECTED A&P Assessment and plan (1) Cellulitis: Status: Acute (2) Type 2 diabetes mellitus: Status: Chronic Qualifiers: Diabetes mellitus complication status: without complication Diabetes mellitus care home insulin use: without intermodal dispatcher use Qualified Code(s): E11.9 - Type 2 diabetes mellitus without complications (3) Essential hypertension: Status: Chronic (4) COPD (chronic obstructive pulmonary disease): Status: Chronic Qualifiers: COPD type: unspecified COPD Qualified Code(s): J44.9 - Chronic obstructive pulmonary disease, unspecified (5) Lumbar radiculopathy: Status: Acute (6) Venous insufficiency of both lower extremities: Status: Acute (7) Aortic insufficiency: Status: Acute Qualifiers: Cardiac valve disease etiology: etiology unspecified Qualified Code(s): I35.1 - Nonrheumatic aortic (valve) insufficiency Additional A&P Information Cellulitis of mons pubis area ?Continue IV vancomycin and Zosyn There is no drainage present at this time therefore unable to culture. CT did show not show any abscess. May be patient has an evolving abscess. We will keep an eye. Will check blood cultures. We will check urinalysis. pt gets yeast infections due to abx use. will place on fluconazole 150 x3 days Type 2 diabetes ?Patient on Metformin at home. Will hold at this time. Will put on insulin sliding scale Hypertension: Continue amlodipine, losartan hydrochlorothiazide Continue metoprolol tartrate 100 twice daily History of chronic aortic insufficiency. Patient did have an echo October 2020 which showed left ventricle mildly dilated, EF 55 to 60%. Diastolic function normal. She also had a stress test done in December 2020. Stress test was normal. DVT prophylaxis: Heparin Diet: Cardiac diabetic diet consistent carbohydrate Attestations Medical Necessity Statement*: Requires greater than 48-hour inpatient stay. Time Spent in Patient Care: Greater than 35 minutes Coding Level of Care Code Acute Printing Press Operator for [facility] Fwd Diagnoses Cellulitis L03.90 Type 2 diabetes mellitus E11.9 Diabetes mellitus complication status: without complication Diabetes mellitus care home insulin use: without care home use Essential hypertension I10 COPD (chronic obstructive pulmonary disease) J44.9 COPD type: unspecified COPD Lumbar radiculopathy M54.16 Venous insufficiency of both lower extremities I87.2 Aortic insufficiency I35.1 Cardiac valve disease etiology: etiology unspecified
[2021-05-05 17:52] VITALS: BMI 49.4
[2021-05-05] MEDS: lactated ringers 1,000 ML 100 ML IV (18:42)
[2021-05-05] MEDS: heparin 5,000 unit/mL INJ 1 mL 5000 UNIT SUBCUT (18:42)
[2021-05-05 18:43] VITALS: BP 138/74; PULSE 74; RESP 18; TEMP 36.6; O2SAT 95
[2021-05-05 18:50] LABS: Lactic Sepsis W/Reflex 1.3 mmol/L (0.5-2.2)
[2021-05-05] MEDS: metoprolol tartrate 50 mg Tablet 100 MG PO (18:56)
[2021-05-05 18:57] LABS: Procalcitonin 0.05 ng/mL (0-0.5)
[2021-05-05 18:58] LABS: Glucose Point of Care 185 mg/dL (70-110)
[2021-05-05] MEDS: insulin lispro 100 unit/1 mL SUBCUT ×2 (18:58→21:21)
[2021-05-05 19:46] VITALS: BP 151/81; PULSE 73; RESP 16; TEMP 36.8; O2SAT 97
[2021-05-05] MEDS: PARoxetine 20 mg Tablet PO (21:00)
[2021-05-05] MEDS: gabapentin 300 mg Capsule 600 MG PO (21:00)
[2021-05-05 21:08] LABS: Glucose Point of Care 150 mg/dL (70-110)
[2021-05-05 23:22] VITALS: BP 127/60; PULSE 67; RESP 17; TEMP 36.9; O2SAT 90
[2021-05-06] VITALS (10 sets, daily range): BP systolic 122–164; BP diastolic 65–97; PULSE 57–82; RESP 12–19; TEMP 36.5–37; O2SAT 91–98
[2021-05-06] MEDS: heparin 5,000 unit/mL INJ 1 mL 5000 UNIT SUBCUT ×3 (00:33→17:34)
[2021-05-06] MEDS: piperacillin-tazobactam 3.375 GM in sodium chloride 0.9% (plus) 50 ML IV ×3 (04:25→20:47)
[2021-05-06] MEDS: lactated ringers 1,000 ML 100 ML IV ×2 (04:25→17:37)
[2021-05-06 04:52] LABS: Basophils # 0.1 10^3/uL (0.0-0.1); Basophils % 0.6 %; Eosinophils # 0.2 10^3/uL (0.0-0.8); Eosinophils % 2.1 %; Hematocrit 39.9 % (37.0-47.0); Hemoglobin 12.6 g/dL (11.5-15.3); Lymphocytes % 26.5 %; Mean Corpuscular HGB Conc 31.6 g/dL (30.0-36.0); Mean Corpuscular Volume 91.9 fl (81-99); Mean Platelet Volume 11.5 fL (7.4-10.4); Monocytes % 8.5 %; Neutrophils # 6.88 10^3/uL (1.8-7.7); Neutrophils % 61.4 %; Nucleated Red Blood Cells % 0 %; Platelet Count 239 10^3/cmm (130-400); Red Blood Count 4.34 10^6/uL (4.1-5.3); Red Cell Distribution Width 13.5 % (12.1-15.1); White Blood Count 11.2 10^3/uL (4.0-10.0)
[2021-05-06 05:10] LABS: Alanine Aminotransferase 11 U/L (0-33); Albumin Level 3.5 g/dL (3.5-5.2); Alkaline Phosphatase 75 IU/L (35-105); Anion Gap 14.8 (5-19); Aspartate Amino Transferase 12 U/L (0-32); Blood Urea Nitrogen 14 mg/dL (8-23); Calcium 9.4 mg/dL (8.5-10.5); Carbon Dioxide 28 mmol/L (22-29); Chloride 101 mmol/L (98-107); Glucose 141 mg/dL (65-115); Magnesium 1.9 mg/dL (1.7-2.3); Osmolality Calculated 293 mOsm/kg (285-295); Potassium 3.8 mmol/L (3.5-5.1); Sodium 140 mmol/L (136-145); Total Bilirubin 0.2 mg/dL (0.15-1.2); Total Protein 6.5 g/dL (6.6-8.7)
[2021-05-06] MEDS: losartan 50 mg Tablet 100 MG PO (05:53)
[2021-05-06] MEDS: aspirin 81 mg EC Tablet PO (05:53)
[2021-05-06] MEDS: amlodipine 10 mg Tablet PO (05:53)
[2021-05-06] MEDS: cetirizine 10 mg Tablet PO (05:54)
[2021-05-06] MEDS: hydroCHLOROthiazide 25 mg Tablet PO (05:54)
--- NOTE | 2021-05-06 06:01 | P.CONIM_ITS ---
Providers/Reason For Consult Consulting Physician/Specialty*: Tay Zaldivar MD Reason for Consult*: Anterior abdominal wall infection Attending Physician: Sherly Colon MD Primary Care Provider: DIONI Bruno History of Present Illness History of Present Illness Chief Complaint: My left groin hurts History of present illness: Ms Janet Pillai is a pleasant 66 year old female morbidly obese with a current weight of 306 pounds and a BMI of 47.9, patient gives history of diabetes mellitus type 2, hyperlipidemia, hypothyroidism, chronic venous insufficiency, COPD, migraines, hypertension, GERD, coronary artery disease status post PCI 1995. Patient has been complaining of left groin discomfort over the past 5 days she was referred by Ms. Clifford her primary care provider for surgical consultation at the office. I do believe there was some issues and confusion with scheduling, and apparently the patient ended up going to the emergency department for further evaluation.No evidence of constitutional symptoms. CT scan of the abdomen and pelvis was done that showed below 1. Large area of cellulitis centered over the LEFT inferior pelvis with no abscess. 2. Area of cellulitis extends over a length of 19 cm towards the iliac crest and width of 10 cm. 3. A few small reactive lymph nodes near the LEFT inguinal region. 4. Fibroid uterus. 5. Hepatomegaly and hepatic steatosis. 6. Nonobstructing bilateral renal calculi. General surgery was consulted for further evaluation. Review of Systems General: Reports: 10 or more systems reviewed and unremarkable except in HPI and below Meds/Allergies Home Medications and Allergies Home Medications Medication Instructions Recorded Confirmed Last Taken Type aspirin 81 mg tablet,delayed 81 mg PO QAM 06/21/19 05/05/21 05/05/21 07:00 History release budesonide-formoterol HFA 160 2 puff INHALATION BID PRN 06/21/19 05/05/21 Unknown History mcg-4.5 mcg/actuation aerosol inhaler cetirizine 10 mg tablet 10 mg PO QAM 06/21/19 05/05/21 05/05/21 History docusate sodium 100 mg capsule See Rx Instructions .ROUTE 10/11/19 05/05/21 05/05/21 History .COMPLEX cap 100 MG gabapentin 600 mg tablet 600 mg PO TID #90 tab 02/10/21 05/05/21 05/05/21 07:00 Rx metoprolol tartrate 100 mg tablet 100 mg PO BID #180 tab 03/09/21 05/05/21 05/05/21 07:00 Rx Diabetic Shoes #1 ea 03/17/21 05/05/21 Unknown Rx amlodipine 10 mg PO QAM 05/05/21 05/05/21 05/05/21 07:00 History cholecalciferol (vitamin D3) 50,000 unit PO Q7D 05/05/21 05/05/21 Unknown History dexlansoprazole [Dexilant] 60 mg PO BEDTIME 05/05/21 05/05/21 05/04/21 History dulaglutide [Trulicity] 1.5 mg SUBCUT .weekly 05/05/21 05/05/21 Unknown History losartan-hydrochlorothiazide 1 tab PO QAM 05/05/21 05/05/21 05/05/21 07:00 History metformin 500 mg PO BEDTIME 05/05/21 05/05/21 05/04/21 History paroxetine HCl 20 mg PO BEDTIME 05/05/21 05/05/21 05/04/21 History Allergies Allergy/AdvReac Type Severity Reaction Status Date / Time Sulfa (Sulfonamide Allergy Unknown Verified 05/06/21 07:38 Antibiotics) sulfamethoxazole Allergy itching Verified 05/06/21 07:38 [From Bactrim] trimethoprim [From Bactrim] Allergy itching Verified 05/06/21 07:38 Current Medications Current Medications Generic Name Dose Route Start Last Admin Trade Name Freq PRN Reason Stop Dose Admin Amlodipine Besylate 10 mg 05/06/21 06:00 05/06/21 05:53 Amlodipine 10 Mg Tablet PO 10 mg QAM NOEL Administration Aspirin 81 mg 05/06/21 06:00 05/06/21 05:53 Aspirin 81 Mg Ec Tablet PO 81 mg QAM NOEL Administration Cetirizine HCl 10 mg 05/06/21 06:00 05/06/21 05:54 Cetirizine 10 Mg Tablet PO 10 mg QAM NOEL Administration Gabapentin 600 mg 05/05/21 21:00 05/05/21 21:00 Gabapentin 300 Mg Capsule PO 600 mg TID NOEL Administration Heparin Sodium (Porcine) 5,000 unit 05/05/21 16:45 05/06/21 00:33 Heparin 5,000 Unit/Ml Inj 1 Ml SUBCUT 5,000 unit Q8H NOEL Administration Hydrochlorothiazide 25 mg 05/06/21 06:00 05/06/21 05:54 Hydrochlorothiazide 25 Mg Tablet PO 25 mg QAM NOEL Administration Lactated Ringer's 1,000 mls @ 100 mls/hr 05/05/21 16:45 05/06/21 04:25 Lactated Ringers IV 100 mls/hr .Q10H NOEL Administration Piperacillin Sod/Tazobactam 50 mls @ 12.5 mls/hr 05/05/21 20:00 05/06/21 04:25 Sod 3.375 gm/ Sodium Chloride IV 12.5 mls/hr Q8H NOEL Administration Insulin Human Lispro 0 unit 05/05/21 18:00 05/05/21 21:21 Insulin Lispro 100 Unit/1 Ml SUBCUT 6 unit WM&BEDTIME NOEL Administration Protocol Losartan Potassium 100 mg 05/06/21 06:00 05/06/21 05:53 Losartan 50 Mg Tablet PO 100 mg QAM NOEL Administration Metoprolol Tartrate 100 mg 05/05/21 18:30 05/05/21 18:56 Metoprolol Tartrate 50 Mg Tablet PO 100 mg BID NOEL Administration Paroxetine HCl 20 mg 05/05/21 21:00 05/05/21 21:00 Paroxetine 20 Mg Tablet PO 20 mg BEDTIME NOEL Administration PFSH Acute PFSH: Medical History Anxiety and depression Aortic insufficiency dx 10/14/02 Dr Kam Martinez Arthralgia of both knees Back pain, lumbosacral Chronic joint pain Common migraine with intractable migraine COPD (chronic obstructive pulmonary disease) Essential hypertension Former heavy cigarette smoker (20-39 per day) Quit in 2009 Gastroesophageal reflux disease without esophagitis Hyperlipidemia Hypothyroidism (acquired) Left Achilles tendinitis Obesity Opioid contract exists Personal history of nicotine dependence Quit 2009 Type 2 diabetes mellitus Venous insufficiency of both lower extremities Surgical History History of delivery History of knee replacement 2009 Stented coronary artery 2 stents done 02/16/96 in [place] Family History Other Cancer Diabetes Social History Quit status (tobacco): has quit using tobacco Year quit tobacco: 2009 Alcohol intake: never Lives independently: No Household members: spouse Marital status: Current occupational status: unemployed History of recent travel: No Current gender identity: Female Vitals/I&O/Wt Last Vital Signs Temp 98.3 F 05/06/21 04:00 Pulse 65 05/06/21 04:00 Resp 17 05/06/21 04:00 BP 164/97 05/06/21 05:53 Pulse Ox 91 05/06/21 04:00 05/05/21 05/05/21 05/06/21 14:59 22:59 06:59 Intake Total 300 / 300 1141.667 / 1441.667 Balance 300 / 300 1141.667 / 1441.667 Weight last 48 hrs Weight 316 lb Weight 316 lb Physical Exam Narrative: EXAM NARRATIVE: Patient is conscious alert oriented X3 BMI 48 Head and neck examination PERRLA no masses no cervical lymphadenopathy no jaundice Abdomen nontender nondistended soft no organomegaly guarding or rigidity/no signs of peritonitis Left groin examination was done in the presence of female fabric sourcer nursing staff [place] Certainly cellulitic changes appreciated about 15 x 6 cm with a central black eschar. Tenderness clinically detected no distinct fluctuation at this point. Clinically evolving abscess. Extremities no cyanosis no clubbing no edema Data Micro: Micro: Microbiology 05/05/21 17:54 Blood Culture - Pr eliminary Blood SPECIMEN [facility] 05/05/21 17:54 Blood Culture - Pr eliminary Blood SPECIMEN [facility] 05/05/21 13:22 Blood Culture - Pr eliminary Blood SPECIMEN [facility] 05/05/21 13:16 Blood Culture - Pr eliminary Blood SPECIMEN [facility] A&P Assessment and plan (1) Cellulitis: After thorough history physical examination and reviewing the chart and images with my personal interpretation of the scan, findings do not demonstrate an abscess formation yet. Likely the patient will have evolving abscess, will plan to keep n.p.o. after midnight for reevaluation tomorrow and potential I&D of left groin. Continue broad-spectrum antibiotics Thank you for consulting general surgery to participate taking care Ms. Pillai Status: Acute Consult Attestations Medical Necessity Statement: Per admitting service Time Spent in Patient Care: 16 - 35 minutes (>than 50% of time spent in counselling and/or direct pt care on unit) . Coding Level of Care Code Acute Perioperative Educator for [facility] Fwd Diagnoses Cellulitis L03.90
--- NOTE | 2021-05-06 06:18 | PC.NURSE ---
spoke with Moody in pharm r/t Vanc IVPB due. he will send it to the floor shortly.
[2021-05-06 06:44] LABS: Glucose Point of Care 155 mg/dL (70-110)
[2021-05-06] MEDS: metoprolol tartrate 50 mg Tablet 100 MG PO ×2 (08:52→17:33)
[2021-05-06] MEDS: gabapentin 300 mg Capsule 600 MG PO ×3 (08:52→20:47)
[2021-05-06] MEDS: fluconazole 100 mg Tablet 150 MG PO (08:52)
[2021-05-06] MEDS: pantoprazole DR 40 mg Tablet PO (08:54)
[2021-05-06] MEDS: insulin lispro 100 unit/1 mL SUBCUT ×3 (08:59→21:20)
[2021-05-06] MEDS: vancomycin 1,250 MG/250 ML PIGGYBACK 200 MG IV ×2 (09:40→19:22)
--- NOTE | 2021-05-06 10:42 | PC.CHAP ---
Pastoral Care Encounter/Spiritual Assessment Type of Contact [] Declined geothermal technician visit [] Patient/Family/Request visit [] Outpatient visit [] Follow-up visit [] Physician referral [] Code/Alert [x] Routine visit [] Staff referral [] Actively dying [] Patient sleeping [] Family support [] [] Out of room [] Palliative care [] [x] Receiving care in room [] Pre-surgical visit [] Trauma [x] Long length of stay [] ICU visit [] Other: Relational/Emotional Strength [x] Patient feels connected with others/family/visitors/staff [] Distress [] Loneliness/isolation [] Abandonment Spirituality of Patient [x] Person of Katie [] Attends Gnosticism of their Katie [x] Believes in Prayer [] Reads Bible or Sabianist materials [] There are Spiritual issues to be addressed Microstrategy Architect Developer Interventions [x] Prayer [x] Active listening [x] Non-anxious presence [x] Spiritual/emotional support [] Crisis/trauma care [x] Spiritual counseling [] Bereavement support [] Provided bereavement packet [] Provided Bible/devotional materials [] Provided toy/stuffed animal, coloring book to patient or family member [] Provided Communion [] Anointing/[place] [] Salvation [x] Completed spiritual assessment [] Other: Impact on Illness or Injury [] Angry [x] Fearful [] Anxious [] Often cries [] Exhaustion [x] Unable to work [] Unable to attend sabianism [] Unable to walk/stand [] Unable to read [] Unable to drive [] Unable to eat/drink [] Unable to sleep [] Unable to be with family [] Patient intubated [] Other: Summary deoesn't know about her and unable to know what needs to be done about the recovery process, negative wants to go home at some point Time spent with patient 10 mins
[2021-05-06 11:59] LABS: Glucose Point of Care 260 mg/dL (70-110)
--- NOTE | 2021-05-06 12:38 | PM.PN ---
Subjective Subjective: Interval history: Seen this morning. at bedside. Patient and both updated of the plan. Today patient's wound has an opening and is draining serosanguineous fluid. Cellulitis area has also been marked with margins. She offers no other complaints today. Vitals/I&O/Wt Last Vital Signs Temp 98.6 F 05/06/21 11:09 Pulse 57 L 05/06/21 11:09 Resp 17 05/06/21 11:09 BP 122/65 05/06/21 11:09 Pulse Ox 95 05/06/21 11:09 05/05/21 05/06/21 05/06/21 22:59 06:59 14:59 Intake Total 300 / 300 1141.667 / 1441.667 660 / 660 Balance 300 / 300 1141.667 / 1441.667 660 / 660 Weight last 48 hrs Weight 138.828 kg Weight 143.335 kg Weight 143.335 kg Physical Exam Narrative: EXAM NARRATIVE: General: Alert oriented x3, patient seen sitting up in bed appearing comfortable. HEENT: Normocephalic, atraumatic, EOMI, breathing room air Cardio: Regular rate rhythm, normal S1-S2, heart sounds slightly muffled secondary to large body habitus, no murmurs rubs gallops, Respiratory: Good bilateral air entry, no wheezes no rhonchi appreciated GI: Abdomen soft, nontender, obese rounded large abdomen, bowel sounds + Large erythematous induration and surrounding cellulitis present to mons pubis area. Redness does not extend into the perineum at this point. There is serosanguineous drainage present today with an opening. 2 cm area of eschar present as well. Area is warm. Slightly tender to palpation. Erythema extends to pannus. No fluctuance noted today. Behavior: Appropriate and cooperative Extremities: No edema or cyanosis present. Venous stasis changes appreciated on lower extremities. Data : 05/06/21 04:17 05/06/21 04:17 Micro: Microbiology 05/05/21 17:54 Blood Culture - Preliminary Blood SPECIMEN COLLECTED 05/05/21 17:54 Blood Culture - Preliminary Blood SPECIMEN COLLECTED 05/05/21 13:22 Blood Culture - Preliminary Blood SPECIMEN COLLECTED 05/05/21 13:16 Blood Culture - Preliminary Blood SPECIMEN COLLECTED A&P Assessment and plan (1) Cellulitis: Status: Acute (2) Type 2 diabetes mellitus: Status: Chronic (3) Essential hypertension: Status: Chronic (4) COPD (chronic obstructive pulmonary disease): Status: Chronic Qualifiers: COPD type: unspecified COPD Qualified Code(s): J44.9 - Chronic obstructive pulmonary disease, unspecified (5) Lumbar radiculopathy: Status: Acute (6) Venous insufficiency of both lower extremities: Status: Acute (7) Aortic insufficiency: Status: Acute Qualifiers: Cardiac valve disease etiology: etiology unspecified Qualified Code(s): I35.1 - Nonrheumatic aortic (valve) insufficiency Additional A&P Information Cellulitis of mons pubis area ?Continue IV vancomycin and Zosyn There is no drainage present at this time therefore unable to culture. CT did show not show any abscess. May be patient has an evolving abscess. We will keep an eye. Will check blood cultures. We will check urinalysis. pt gets yeast infections due to abx use. will place on fluconazole 150 x3 days Possible debridement with general surgery in the morning. N.p.o. at midnight today. Type 2 diabetes ?Patient on Metformin at home. Will hold at this time. Will put on insulin sliding scale Hypertension: Continue amlodipine, losartan hydrochlorothiazide Continue metoprolol tartrate 100 twice daily History of chronic aortic insufficiency. Patient did have an echo October 2020 which showed left ventricle mildly dilated, EF 55 to 60%. Diastolic function normal. She also had a stress test done in December 2020. Stress test was normal. DVT prophylaxis: Heparin Diet: Cardiac diabetic diet consistent carbohydrate Attestations Medical Necessity Statement*: > 48 hour inpt stay Coding Level of Care Code Acute Oil Exploration Engineer for [facility] Diagnoses Cellulitis L03.90 Type 2 diabetes mellitus E11.9 Essential hypertension I10 COPD (chronic obstructive pulmonary disease) J44.9 COPD type: unspecified COPD Lumbar radiculopathy M54.16 Venous insufficiency of both lower extremities I87.2 Aortic insufficiency I35.1 Cardiac valve disease etiology: etiology unspecified
[2021-05-06 16:58] LABS: Glucose Point of Care 136 mg/dL (70-110)
[2021-05-06] MEDS: PARoxetine 20 mg Tablet PO (20:47)
[2021-05-06 21:20] LABS: Glucose Point of Care 174 mg/dL (70-110)
[2021-05-07] VITALS (16 sets, daily range): BP systolic 100–177; BP diastolic 61–89; PULSE 55–80; RESP 14–19; TEMP 35.8–37.1; O2SAT 90–100; BMI 47.9
[2021-05-07] MEDS: heparin 5,000 unit/mL INJ 1 mL 5000 UNIT SUBCUT (00:12)
[2021-05-07] MEDS: lactated ringers 1,000 ML 100 ML IV ×3 (04:33→17:48)
[2021-05-07] MEDS: piperacillin-tazobactam 3.375 GM in sodium chloride 0.9% (plus) 50 ML IV ×3 (04:34→20:49)
--- NOTE | 2021-05-07 06:04 | P.PN_ITS ---
Subjective Subjective: Interval history: Patient overall is about the same and feels pressure at the left groin Medications: Reviewed: Yes Vitals/I&O/Wt Last Vital Signs Temp 96.5 F L 05/07/21 04:00 Pulse 60 05/07/21 04:00 Resp 14 05/07/21 04:00 BP 143/73 05/07/21 04:00 Pulse Ox 96 05/07/21 04:00 05/06/21 05/06/21 05/07/21 14:59 22:59 06:59 Intake Total 1660 / 1660 780 / 2440 1050 / 3490 Balance 1660 / 1660 780 / 2440 1050 / 3490 Weight last 48 hrs Weight 306 lb 1 oz Weight 316 lb Weight 316 lb Physical Exam Narrative: EXAM NARRATIVE: Patient is conscious alert oriented X3 BMI 48 Head and neck examination PERRLA no masses no cervical lymphadenopathy no jaundice Abdomen nontender nondistended soft no organomegaly guarding or rigidity/no signs of peritonitis Left groin examination was done in the presence of female sweatband separator nursing staff Misbah Presence of left localized abscess formation with some discharge, certainly ce llulitis is much better. Data : 05/06/21 04:17 05/06/21 04:17 Micro: Microbiology 05/05/21 17:54 Blood Culture - Preliminary Blood NEGATIVE TO DATE 05/05/21 17:54 Blood Culture - Preliminary Blood NEGATIVE TO DATE 05/05/21 13:16 Blood Culture - Preliminary Blood NEGATIVE TO DATE 05/05/21 13:22 Blood Culture - Preliminary Blood NEGATIVE TO DATE A&P Assessment and plan (1) Abscess: We will plan to take the patient today for surgery in the form of incision and drainage of left groin abscess in the OR. Indications, risks, benefits alternatives were discussed with the patient did agree to proceed accordingly. Informed consent per chart Status: Acute Attestations Medical Necessity Statement*: Per admitting service Time Spent in Patient Care: (>than 50% of time spent in counselling and/or direct pt care on unit) . Coding Level of Care Code Acute [facility] for [facility] Diagnoses Abscess L02.91
[2021-05-07 06:17] LABS: Basophils # 0.1 10^3/uL (0.0-0.1); Basophils % 0.8 %; Eosinophils # 0.2 10^3/uL (0.0-0.8); Eosinophils % 2.7 %; Hemoglobin 12.3 g/dL (11.5-15.3); Lymphocytes # 2.3 10^3/uL (0.8-4.8); Lymphocytes % 31.6 %; Mean Corpuscular HGB Conc 31.5 g/dL (30.0-36.0); Mean Corpuscular Hemoglobin 29.2 pg (28.0-34.0); Mean Corpuscular Volume 92.6 fl (81-99); Mean Platelet Volume 11.1 fL (7.4-10.4); Monocytes # 0.7 10^3/uL (0.2-0.9); Monocytes % 9.8 %; Neutrophils # 3.94 10^3/uL (1.8-7.7); Neutrophils % 54.1 %; Nucleated Red Blood Cells % 0 %; Platelet Count 247 10^3/cmm (130-400); Red Blood Count 4.21 10^6/uL (4.1-5.3); Red Cell Distribution Width 13.5 % (12.1-15.1); White Blood Count 7.3 10^3/uL (4.0-10.0)
[2021-05-07] MEDS: hydroCHLOROthiazide 25 mg Tablet PO (06:20)
[2021-05-07] MEDS: aspirin 81 mg EC Tablet PO (06:21)
[2021-05-07] MEDS: amlodipine 10 mg Tablet PO (06:21)
[2021-05-07] MEDS: cetirizine 10 mg Tablet PO (06:21)
[2021-05-07 06:39] LABS: Blood Urea Nitrogen 16 mg/dL (8-23); Carbon Dioxide 28 mmol/L (22-29); Chloride 102 mmol/L (98-107); Creatinine Clr Calc Pharmacy 103.7315; Glomerular Filtration Rate 72.2 mL/min (90-130); Glucose 134 mg/dL (65-115); Osmolality Calculated 291 mOsm/kg (285-295); Sodium 139 mmol/L (136-145); Vancomycin Trough 12.3 ug/mL (10-15)
[2021-05-07 06:45] LABS: Glucose Point of Care 129 mg/dL (70-110)
[2021-05-07] MEDS: vancomycin 1,250 MG/250 ML PIGGYBACK 200 MG IV ×2 (07:46→17:51)
[2021-05-07] MEDS: metoprolol tartrate 50 mg Tablet 100 MG PO ×2 (07:47→17:43)
[2021-05-07] MEDS: pantoprazole DR 40 mg Tablet PO ×2 (07:47→07:48)
[2021-05-07] MEDS: gabapentin 300 mg Capsule 600 MG PO ×2 (07:48→21:47)
--- NOTE | 2021-05-07 08:55 | P.PN_ITS ---
Subjective Subjective: Interval history: Seen this morning. She will be going to or for debridement today. Vitals/I&O/Wt Last Vital Signs Temp 97.7 F 05/07/21 16:15 Pulse 57 L 05/07/21 16:15 Resp 18 05/07/21 16:15 BP 141/78 05/07/21 16:15 Pulse Ox 90 05/07/21 16:15 05/07/21 05/07/21 05/07/21 06:59 14:59 22:59 Intake Total 1050 / 3490 290 / 290 100 / 390 Output Total 30 / 30 Balance 1050 / 3490 290 / 290 70 / 360 Weight last 48 hrs Weight 138.828 kg Weight 138.828 kg Weight 143.335 kg Physical Exam Narrative: EXAM NARRATIVE: General: Alert oriented x3, patient seen sitting up in bed appearing comfortable. Cardio: Regular rate rhythm, normal S1-S2, heart sounds slightly muffled secon mele to large body habitus, Respiratory: Good bilateral air entry, no wheezes no rhonchi appreciated Large erythematous induration and surrounding cellulitis present to mons pubis area. Redness does not extend into the perineum at this point. There is serosanguineous drainage present today with an opening. 2 cm area of eschar present as well. Area is warm. Slightly tender to palpation. Erythema extends to pannus. No fluctuance noted today. Extremities: No edema or cyanosis present. Venous stasis changes appreciated on lower extremities. Data : 05/07/21 06:03 05/07/21 06:03 Micro: Microbiology 05/05/21 17:54 Blood Culture - Preliminary Blood NEGATIVE TO DATE 05/05/21 17:54 Blood Culture - Preliminary Blood NEGATIVE TO DATE 05/05/21 13:16 Blood Culture - Preliminary Blood NEGATIVE TO DATE 05/05/21 13:22 Blood Culture - Preliminary Blood NEGATIVE TO DATE A&P Assessment and plan (1) Cellulitis: Status: Acute (2) Type 2 diabetes mellitus: Status: Chronic (3) Essential hypertension: Status: Chronic (4) COPD (chronic obstructive pulmonary disease): Status: Chronic Qualifiers: COPD type: unspecified COPD Qualified Code(s): J44.9 - Chronic obstructive pulmonary disease, unspecified (5) Lumbar radiculopathy: Status: Acute (6) Venous insufficiency of both lower extremities: Status: Acute (7) Aortic insufficiency: Status: Acute Qualifiers: Cardiac valve disease etiology: etiology unspecified Qualified Code(s): I35.1 - Nonrheumatic aortic (valve) insufficiency Additional A&P Information Cellulitis of mons pubis area ?Continue IV vancomycin and Zosyn There is no drainage present at this time therefore unable to culture. CT did show not show any abscess. May be patient has an evolving abscess. We will keep an eye. Will check blood cultures. We will check urinalysis. pt gets yeast infections due to abx use. will place on fluconazole 150 x3 days Going for debridement today Type 2 diabetes ?Patient on Metformin at home. Will hold at this time. Will put on insulin sliding scale Hypertension: Continue amlodipine, losartan hydrochlorothiazide Continue metoprolol tartrate 100 twice daily History of chronic aortic insufficiency. Patient did have an echo October 2020 which showed left ventricle mildly dilated, EF 55 to 60%. Diastolic function normal. She also had a stress test done in December 2020. Stress test was normal. 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
[2021-05-07 10:56] LABS: Glucose Point of Care 133 mg/dL (70-110)
[2021-05-07] MEDS: acetaminophen 325 mg Tablet 650 MG PO (11:00)
--- NOTE | 2021-05-07 13:45 | PC.CHAP ---
Pastoral Care Encounter/Spiritual Assessment Type of Contact [] Declined editorial clerk visit [] Patient/Family/Request visit [] Outpatient visit [xx] Follow-up visit [] Physician referral [] Code/Alert [xx] Routine visit [] Staff referral [] Actively dying [] Patient sleeping [] Family support [] [] Out of room [] Palliative care [] [] Receiving care in room [] Pre-surgical visit [] Trauma [] Long length of stay [] ICU visit [] Other: Relational/Emotional Strength [xx] Patient feels connected with others/family/visitors/staff [] Distress [] Loneliness/isolation [] Abandonment Spirituality of Patient [xx] Person of Katie [xx] Attends Church of their [place] [xx] Believes in Prayer [] Reads Bible or Muslim materials [] There are Spiritual issues to be addressed Intake Rn Interventions [xx] Prayer [xx] Active listening [xx] Non-anxious presence [] Spiritual/emotional support [] Crisis/trauma care [] Spiritual counseling [] Bereavement support [] Provided bereavement packet [] Provided Bible/devotional materials [] Provided toy/stuffed animal, coloring book to patient or family member [] Provided Communion [] Anointing/[place] [] Salvation [xx] Completed spiritual assessment [] Other: Impact on Illness or Injury [] Angry [] Fearful [] Anxious [] Often cries [] Exhaustion [] Unable to work [] Unable to attend episcopal [] Unable to walk/stand [] Unable to read [] Unable to drive [] Unable to eat/drink [] Unable to sleep [] Unable to be with family [] Patient intubated [] Other: Summary Patient requested editorial clerk visit and prayer when editorial clerk visited roommate. Patient is very pleasant to talk to. She stated she is awaiting surgery Monday morning and then expects to be discharged later in the day - she hopes. Time spent with patient 12 minutes
--- NOTE | 2021-05-07 14:38 | P.ANESASSM_ITS ---
Pre-Anesthetic Assessment Pre-Anesthetic Assessment: Height/Weight: Height 1.7 m Weight 138.828 kg Temp Pulse Resp BP Pulse Ox 97.9 F 55 L 16 117/65 93 05/07/21 11:37 05/07/21 11:37 05/07/21 11:37 05/07/21 11:37 05/07/21 11:37 Preop Diagnosis: Abscess Proposed Procedure: Operation Date: 05/07/21 15:10 Proposed Procedures p Incision And Drainage(Left) - Tay Zaldivar MD Familial anesthetic complications: none Was Beta Radha taken within 24 hours: N/A Was Clonidine taken within 24 hours: N/A Last intake: > 8 hrs, at at 0600 Social: Social History: No alcohol and No tobacco Exam: Pre-Anes Outpt Exam: alert, oriented x 3, clear to auscultation bilaterally and regular rate & rhythm Airway: Cervical ROM: WNL MP: 1 Dentition: Full Additional comments: large neck Pulmonary: Pulmonary: COPD CV/HEM: CV/HEM: CAD (2 stents 1995) and HTN Comments: Echo October 2010 _-> Aortic insufficiency, EF 55 - 60% Stress test Conclusion: 1. Normal EKG response to Lexiscan infusion 2. No Lexiscan induced chest pain or cardiac arrhythmia. 3. Normal blood pressure and heart rate response. 4. Sestamibi/sestamibi perfusion scan pending; see separate report. GI: GI: GERD Metabolic: Metabolic: Morbid obesity Anesthetic Plan: ASA status: 3 Risk of > 500 ml blood loss (7ml/kg in children): No Meds/Allergies Current Medications: Current Medications Generic Name Dose Route Start Last Admin Trade Name Buckq PRN Reason Stop Dose Admin Acetaminophen 650 mg 05/05/21 16:45 05/07/21 11:00 Acetaminophen 32 5 Mg Tablet PO 650 mg Q6H PRN Administration Mild/Mod Pain Or Temp >/= 101 Amlodipine Besylat e 10 mg 05/06/21 06:00 05/07/21 06:21 Amlodipine 10 Mg Tablet PO 10 mg QAM NOEL Administration Aspirin 81 mg 05/06/21 06:00 05/07/21 06:21 Aspirin 81 Mg Ec Tablet PO 81 mg QAM NOEL Administration Cetirizine HCl 10 mg 05/06/21 06:00 05/07/21 06:21 Cetirizine 10 Mg Tablet PO 10 mg QAM NOEL Administration Fluconazole 150 mg 05/06/21 09:00 05/07/21 08:01 Fluconazole 100 Mg Tablet PO 05/09/21 08:59 Not Given DAILY NOEL Gabapentin 600 mg 05/05/21 21:00 05/07/21 07:48 Gabapentin 300 M g Capsule PO 600 mg TID NOEL Administration Heparin Sodium (Po rcine) 5,000 unit 05/05/21 16:45 05/07/21 07:10 Heparin 5,000 Un it/Ml Inj 1 Ml SUBCUT Not Given Q8H NOEL Hydrochlorothiazid e 25 mg 05/06/21 06:00 05/07/21 06:20 Hydrochlorothiaz dave 25 Mg Tablet PO 25 mg QAM NOEL Administration Lactated Ringer's 1,000 mls @ 100 m ls/hr 05/05/21 16:45 05/07/21 04:33 Lactated Ringers IV 100 mls/hr .Q10H NOEL Administration Piperacillin Sod/T azobactam 50 mls @ 12.5 mls /hr 05/05/21 20:00 05/07/21 13:06 Sod 3.375 gm/ So dium Chloride IV 12.5 mls/hr Q8H NOEL Administration Vancomycin/PEG/NAD A/Lysine/Water 1,250 mg in 250 m ls @ 200 mls/hr 05/06/21 07:00 05/07/21 07:46 Vancocin IV 200 mls/hr Q12H NOEL Administration Insulin Human Lisp ro 0 unit 05/05/21 18:00 05/07/21 11:04 Insulin Lispro 1 00 Unit/1 Ml SUBCUT Not Given WM&BEDTIME NOEL Protocol Losartan Potassium 100 mg 05/06/21 06:00 05/06/21 05:53 Losartan 50 Mg T ablet PO 100 mg QAM NOEL Administration Metoprolol Tartrat e 100 mg 05/05/21 18:30 05/07/21 07:47 Metoprolol Tartr ate 50 Mg Tablet PO 100 mg BID NOEL Administration Pantoprazole Sodiu m 40 mg 05/06/21 09:00 05/07/21 07:[address] 40 Mg Tablet PO 40 mg DAILY NOEL Administration Paroxetine HCl 20 mg 05/05/21 21:00 05/06/21 20:47 Paroxetine 20 Mg Tablet PO 20 mg BEDTIME NOEL Administration Fluticasone/Salmet melisa 1 puff 05/06/21 20:00 05/07/21 09:08 Fluticasone-Salm eterol 250-50 Disk us INHALATION 1 puff BID.RESPIRATORY S CH Administration PFSH Anesthesia PFSH: Medical History Anxiety and depression Aortic insufficiency dx 10/14/02 Dr Kam Martinez Arthralgia of both knees Back pain, lumbosacral Chronic joint pain Common migraine with intractable migraine COPD (chronic obstructive pulmonary disease) Essential hypertension Former heavy cigarette smoker (20-39 per day) Quit in 2009 Gastroesophageal reflux disease without esophagitis Hyperlipidemia Hypothyroidism (acquired) Left Achilles tendinitis Obesity Opioid contract exists Personal history of nicotine dependence Quit 2009 Type 2 diabetes mellitus Venous insufficiency of both lower extremities Surgical History History of delivery History of knee replacement 2009 Stented coronary artery 2 stents done 02/16/96 in [place] Family History Other Cancer Diabetes Social History Quit status (tobacco): has quit using tobacco Year quit tobacco: 2009 Alcohol intake: never Lives independently: No Household members: spouse Marital status: Current occupational status: unemployed History of recent travel: No Current gender identity: Female Data Anesthesia CBC & Chem 7: 05/07/21 06:03 05/07/21 06:03 Other Labs: Laboratory Results - last 48 hr 05/05/21 05/05/21 05/05/21 17:54 17:54 18:54 WBC RBC Hgb Hct MCV MCH MCHC RDW Plt Count MPV Neut % (Auto) Lymph % (Auto) [place] % (Auto) Eos % (Auto) Baso % (Auto) Neut # (Auto) Lymph # (Auto) [place] # (Auto) Eos # (Auto) Baso # (Auto) Nucleated RBC % (auto) Nucleated RBCs # Sodium Potassium Chloride Carbon Dioxide Anion Gap BUN Creatinine GFR Calculation Glucose POC Glucose 185 H Calculated Osmolality Lactic Acid 1.3 Calcium Magnesium Total Bilirubin AST ALT Alkaline Phosphatase Total Protein Albumin Globulin Procalcitonin 0.05 Vancomycin Trough 05/05/21 05/06/21 05/06/21 20:56 04:17 04:17 WBC 11.2 H RBC 4.34 Hgb 12.6 Hct 39.9 MCV 91.9 MCH 29.0 MCHC 31.6 RDW 13.5 Plt Count 239 MPV 11.5 H Neut % (Auto) 61.4 Lymph % (Auto) 26.5 [place] % (Auto) 8.5 Eos % (Auto) 2.1 Baso % (Auto) 0.6 Neut # (Auto) 6.88 Lymph # (Auto) 3.0 [place] # (Auto) 1.0 H Eos # (Auto) 0.2 Baso # (Auto) 0.1 Nucleated RBC % (auto) 0 Nucleated RBCs # 0.0 Sodium 140 Potassium 3.8 Chloride 101 Carbon Dioxide 28 Anion Gap 14.8 BUN 14 Creatinine 0.9 GFR Calculation 63.0 L Glucose 141 H POC Glucose 150 H Calculated Osmolality 293 Lactic Acid Calcium 9.4 Magnesium 1.9 Total Bilirubin 0.2 AST 12 ALT 11 Alkaline Phosphatase 75 Total Protein 6.5 L Albumin 3.5 Globulin 3.0 Procalcitonin Vancomycin Trough 05/06/21 05/06/21 05/06/21 06:31 11:13 16:26 WBC RBC Hgb Hct MCV MCH MCHC RDW Plt Count MPV Neut % (Auto) Lymph % (Auto) [place] % (Auto) Eos % (Auto) Baso % (Auto) Neut # (Auto) Lymph # (Auto) [place] # (Auto) Eos # (Auto) Baso # (Auto) Nucleated RBC % (auto) Nucleated RBCs # Sodium Potassium Chloride Carbon Dioxide Anion Gap BUN Creatinine GFR Calculation Glucose POC Glucose 155 H 260 H 136 H Calculated Osmolality Lactic Acid Calcium Magnesium Total Bilirubin AST ALT Alkaline Phosphatase Total Protein Albumin Globulin Procalcitonin Vancomycin Trough 05/06/21 05/07/21 05/07/21 21:03 06:03 06:03 WBC 7.3 RBC 4.21 Hgb 12.3 Hct 39.0 MCV 92.6 MCH 29.2 MCHC 31.5 RDW 13.5 Plt Count 247 MPV 11.1 H Neut % (Auto) 54.1 Lymph % (Auto) 31.6 [place] % (Auto) 9.8 Eos % (Auto) 2.7 Baso % (Auto) 0.8 Neut # (Auto) 3.94 Lymph # (Auto) 2.3 [place] # (Auto) 0.7 Eos # (Auto) 0.2 Baso # (Auto) 0.1 Nucleated RBC % (auto) 0 Nucleated RBCs # 0.0 Sodium Potassium Chloride Carbon Dioxide Anion Gap BUN Creatinine GFR Calculation Glucose POC Glucose 174 H Calculated Osmolality Lactic Acid Calcium Magnesium Total Bilirubin AST ALT Alkaline Phosphatase Total Protein Albumin Globulin Procalcitonin Vancomycin Trough 12.3 05/07/21 05/07/21 05/07/21 06:03 06:21 10:38 WBC RBC Hgb Hct MCV MCH MCHC RDW Plt Count MPV Neut % (Auto) Lymph % (Auto) [place] % (Auto) Eos % (Auto) Baso % (Auto) Neut # (Auto) Lymph # (Auto) [place] # (Auto) Eos # (Auto) Baso # (Auto) Nucleated RBC % (auto) Nucleated RBCs # Sodium 139 Potassium 4.0 Chloride 102 Carbon Dioxide 28 Anion Gap 13.0 BUN 16 Creatinine 0.8 GFR Calculation 72.2 L Glucose 134 H POC Glucose 129 H 133 H Calculated Osmolality 291 Lactic Acid Calcium 9.0 Magnesium Total Bilirubin AST ALT Alkaline Phosphatase Total Protein Albumin Globulin Procalcitonin Vancomycin Trough Micro: Microbiology 05/05/21 17:54 Blood Culture - Preliminary Blood NEGATIVE TO DATE 05/05/21 17:54 Blood Culture - Preliminary Blood NEGATIVE TO DATE 05/05/21 13:16 Blood Culture - Preliminary Blood NEGATIVE TO DATE 05/05/21 13:22 Blood Culture - Preliminary Blood NEGATIVE TO DATE Cardiac Studies: No Data to Display
[2021-05-07] MEDS: lidocaine 2% INJ 20 mL (15:35)
--- NOTE | 2021-05-07 15:43 | P.OP_ITS ---
Operative Report Date of procedure: May 07, 2021 Pre-op Diagnosis: Left groin abscess Post-op diagnosis: same Post-op Findings: Left groin abscess with post debridement measurements 5.3 x 4 x [address] to the subcutaneous layer Procedure Done: 1-Incision and drainage of left groin abscess 2-Sharp and excisional debridement of left groin abscess cavity Implants: Large piece of Surgicel followed by packing with Kerlix wet-to-dry followed by ABDs and surgical pants Specimens removed/disposition: Tissues for cultures and sensitivities Surgeon: Tay Zaldivar Project Management Analyst: marketing technology specialist Melinda Circulating nurse Cathi Anesthesia: General (LMA tube coater Tasia) Estimated blood loss (mL): 10 Condition: stable Disposition: floor Brief History: Symptomatic left groin abscess Procedure: After identifying the patient holding area, the left groin was marked before the procedure by myself in the presence of female health sciences department chair nursing staff Janet, patient was then taken to the operative suite, was placed in supine position, LMA was placed by anesthesia, patient was already on IV antibiotics were given per protocol,prep and drape of the left groin region was done under the usual sterile technique. Time-out was done verifying the patient's name/date of /planned procedure and destination after the procedure, all were in agreement After palpation of the left groin abscess,I did add transverse oblique/11 to incision on top of the most fluctuant area , after the stab incision was created necrotic subcutaneous tissues were appreciated with some purulent fluid were revealed, tissues for cultures and sensitivities were obtained for aerobes and anaerobes. incision was extended, all loculations were broken down by the examining finger, excisional sharp debridement of the abscess cavity was achieved Left groin abscess Post debridement measurements 5.3 x 4 x [address] to the subcutaneous layer Copious and thorough irrigation with 1 L of Vashe solution followed by Pulsavac 3 L of warm saline was done, followed by appropriate hemostasis, a piece of Surgicel was placed at the bottom of the abscess cavity followed by Kerlix impregnated in lidocaine 2% was used to pack the abscess cavity Dry dressing was then applied in the form of ABD, followed by surgical pants Patient tolerated the procedure well, count of instruments, needles and sponges were completed at the end of the procedure. And then patient was taken to the recovery area in stable condition. I Was present for the whole entire procedure
--- NOTE | 2021-05-07 15:50 | PC.NURSE ---
student nurse all student documentation verified by this instructor for 05/07/21.
--- NOTE | 2021-05-07 16:24 | SUR.PHASEI ---
1600 PT AWAKE ALERT TALKING TO DR BERMEO VSS PT DENIES PAIN AND NAUSEA PT TO FLOOR PER CART DRESSING D/I WITH PACKING IN PLACE.
[2021-05-07 17:05] LABS: Glucose Point of Care 121 mg/dL (70-110)
[2021-05-07] MEDS: HYDROcodone-acetaminophen 5-325 mg Tablet 1 TAB PO ×2 (17:44→21:47)
[2021-05-07] MEDS: sennosides-docusate Tablet 1 TAB PO (17:44)
[2021-05-07] MEDS: polyethylene glycol 3350 Pkt 17 gm PO (17:45)
[2021-05-07 20:40] LABS: Glucose Point of Care 166 mg/dL (70-110)
[2021-05-07] MEDS: insulin lispro 100 unit/1 mL SUBCUT (21:47)
[2021-05-07] MEDS: PARoxetine 20 mg Tablet PO (21:47)
[2021-05-08] VITALS (7 sets, daily range): BP systolic 100–169; BP diastolic 63–83; PULSE 55–80; RESP 15–18; TEMP 36.5–36.8; O2SAT 92–98
[2021-05-08] MEDS: heparin 5,000 unit/mL INJ 1 mL 5000 UNIT SUBCUT ×2 (01:08→08:07)
[2021-05-08] MEDS: piperacillin-tazobactam 3.375 GM in sodium chloride 0.9% (plus) 50 ML IV (04:40)
[2021-05-08] MEDS: cetirizine 10 mg Tablet PO (05:01)
[2021-05-08] MEDS: amlodipine 10 mg Tablet PO (05:01)
[2021-05-08] MEDS: losartan 50 mg Tablet 100 MG PO (05:01)
[2021-05-08] MEDS: hydroCHLOROthiazide 25 mg Tablet PO (05:01)
[2021-05-08] MEDS: aspirin 81 mg EC Tablet PO (05:01)
[2021-05-08] MEDS: HYDROcodone-acetaminophen 5-325 mg Tablet 1 TAB PO ×2 (05:01→11:49)
[2021-05-08 05:27] LABS: Basophils # 0.1 10^3/uL (0.0-0.1); Basophils % 1.2 %; Eosinophils # 0.2 10^3/uL (0.0-0.8); Eosinophils % 2.7 %; Hematocrit 37.9 % (37.0-47.0); Hemoglobin 11.8 g/dL (11.5-15.3); Lymphocytes # 2.7 10^3/uL (0.8-4.8); Lymphocytes % 35.7 %; Mean Corpuscular HGB Conc 31.1 g/dL (30.0-36.0); Mean Corpuscular Hemoglobin 28.8 pg (28.0-34.0); Mean Corpuscular Volume 92.4 fl (81-99); Mean Platelet Volume 11.4 fL (7.4-10.4); Monocytes # 0.7 10^3/uL (0.2-0.9); Monocytes % 9.4 %; Neutrophils # 3.82 10^3/uL (1.8-7.7); Neutrophils % 49.8 %; Nucleated Red Blood Cells % 0 %; Platelet Count 270 10^3/cmm (130-400); Red Cell Distribution Width 13.2 % (12.1-15.1); White Blood Count 7.7 10^3/uL (4.0-10.0)
[2021-05-08 05:51] LABS: Anion Gap 15.5 (5-19); Blood Urea Nitrogen 16 mg/dL (8-23); Calcium 8.9 mg/dL (8.5-10.5); Carbon Dioxide 28 mmol/L (22-29); Chloride 103 mmol/L (98-107); Glucose 141 mg/dL (65-115); Osmolality Calculated 298 mOsm/kg (285-295); Potassium 4.5 mmol/L (3.5-5.1); Sodium 142 mmol/L (136-145)
[2021-05-08 06:24] LABS: Glucose Point of Care 133 mg/dL (70-110)
[2021-05-08] MEDS: sennosides-docusate Tablet 1 TAB PO (08:07)
[2021-05-08] MEDS: gabapentin 300 mg Capsule 600 MG PO (08:07)
[2021-05-08] MEDS: metoprolol tartrate 50 mg Tablet 100 MG PO (08:07)
[2021-05-08] MEDS: fluconazole 100 mg Tablet 150 MG PO (08:07)
[2021-05-08] MEDS: sulfamethoxazole-trimeth DS 160-800 mg Tablet 1 TAB PO (08:18)
[2021-05-08] MEDS: amoxicillin-clav 875-125 mg Tablet 1 TAB PO (08:18)
[2021-05-08 11:00] LABS: Glucose Point of Care 152 mg/dL (70-110)
--- NOTE | 2021-05-08 11:27 | P.PN_ITS ---
Subjective Subjective: Interval history: Patient overall feels better. Patient IV access got infiltrated and I asked the nurses to switch the patient to oral Augmentin and Bactrim antibiotics. As the patient should be going home today Medications: Reviewed: Yes Vitals/I&O/Wt Last Vital Signs Temp 97.9 F 05/08/21 11:24 Pulse 66 05/08/21 11:24 Resp 16 05/08/21 11:24 BP 169/73 05/08/21 11:24 Pulse Ox 92 05/08/21 11:24 05/07/21 05/08/21 05/08/21 22:59 06:59 14:59 Intake Total 650 / 2190 1100.000 / 3290.000 240 / 240 Output Total 30 / 30 Balance 620 / 2160 1100.000 / 3260.000 240 / 240 Weight last 48 hrs Weight 315 lb Weight 306 lb 1 oz Physical Exam Narrative: EXAM NARRATIVE: Patient is conscious alert oriented X3 BMI 48 Head and neck examination PERRLA no masses no cervical lymphadenopathy no jaundice Abdomen nontender nondistended soft no organomegaly guarding or rigidity/no signs of peritonitis Left groin examination was done in the presence of female static balancer nursing staff Misbah Abscess cavity is clean and dressing in place and no evidence of surrounding cellulitis Data : 05/08/21 04:38 05/08/21 04:38 Micro: Microbiology 05/07/21 15:30 Gram Stain - Final Groin Wound Culture - Preliminary Staphylococcus aureus A&P Assessment and plan (1) Abscess: Assessment 66 years old female patient status post incision and drainage of left groin abscess 05/07/2021 Plan 1-nutrition optimization and diabetes education 2-wound care in the form of daily packing with Kerlix wet-to-dry followed by ABDs 3-management of medical comorbidities per hospitalist and primary care provider services 4-return to wound care center in 1 week to follow-up with me 5-assurance and education All questions have been answered and all concerns have been addressed to patient's satisfaction. Status: Acute Attestations Medical Necessity Statement*: Per admitting service Time Spent in Patient Care: (>than 50% of time spent in counselling and/or direct pt care on unit) . Coding Level of Care Code Acute Labor Arbitrator for [facility] Diagnoses Abscess L02.91
--- NOTE | 2021-05-08 11:42 | PC.SOCIAL ---
IMM Update: pg 2 of IMM updated and reviewed w/ patient. Copy provided.
[2021-05-08] MEDS: insulin lispro 100 unit/1 mL SUBCUT (12:51)
--- NOTE | 2021-05-08 13:34 | PC.NURSE ---
Pt's wound was redressed with at bedside and has verbalized they understand wound care instructions.
--- NOTE | 2021-05-08 14:27 | PM.DCS ---
Discharge Providers Date of Admission: 05/05/21 15:42 Date of Discharge: May 08, 2021 Attending Provider at Admission: Sherly Colon MD Attending Provider at Discharge: Sherly Colon MD Primary Care Provider: DIONI Bruno Diagnoses at Discharge Discharge Diagnosis (1) Abscess: Status: Acute Reason for Visit Reason for Visit: abscess groin area Hospital Course Hospital Course Janet Pillai is a 66 year old female with past medical history of anxiety depression aortic insufficiency, arthralgia of both knees, chronic back pain, chronic joint pain, history of migraines, COPD, hypertension, GERD, hyperlipidemia, hypothyroidism, obesity, type 2 diabetes mellitus and chronic venous insufficiency of both lower extremities, coronary artery disease status post PCI 1995 presented to the ER after being sent by her primary care doctor for an abscess in her left groin that has been present for 5 days. Patient told her doctor that it was draining and it was very red and swollen. It also had scant amount of drainage. She has not had any fevers at home. He does report 1 abscess to her perineal region that did not require I&D or hospitalization in the past. Patient does have a history of diabetes. She denies any chest pain, shortness of breath, abdominal pain, diarrhea, nausea, vomiting, body aches, flank pain, urinary complaints. She has not shaved or waxed the area recently. ED course: Blood pressure 160/89, respiratory rate 18, pulse rate 69, temperature 98.2, pulse ox 96%. Patient was examined by ER doctor she does have extensive cellulitis and probable abscess to mons pubis region. Labs were obtained, CT imaging was ordered and patient was started on IV vancomycin and Zosyn. CT scan did not show any obvious abscess. It did show large area of cellulitis centered over left inferior pelvis. Area of cellulitis extends over a length of 19 cm toward iliac crest and width of 10 cm. Few small reactive lymph nodes near the left inguinal region present. Hepatomegaly and hepatic steatosis present. Dr. Zaldivar general surgery was called for possible debridement and evaluation. He has been consulted. Course: Patient presented with a cellulitis of mons pubis area. She was started on IV vancomycin and Zosyn. At admission there was no drainage present and therefore unable to culture. She had an evolving abscess. General surgery was consulted by the ER. Patient was taken for debridement. It was decided to discharge the patient on Bactrim and Augmentin as per general surgery recommendations. Patient will follow up in the wound care clinic with Dr. Zaldivar. Other than this issue patient was asymptomatic and did not have any other problems. She did have a lot of chronic medical conditions which were stable during this hospital stay. Physical Exam Narrative: EXAM NARRATIVE: Patient is conscious alert oriented X3 BMI 48 Head and neck examination PERRLA no masses no cervical lymphadenopathy no jaundice Abdomen nontender nondistended soft no organomegaly guarding or rigidity/no signs of peritonitis Abscess cavity is clean and dressing in place and no evidence of surrounding cellulitis Discharge Data Data Completed and Pending: Completed Studies During Hospitalization Category Date Time Status CT abdomen pelvis w con* [id number] Urge nt Cat Scan 05/05/21 10:31 Completed Pending at discharge Category Date Time Status ES surgery / GI i mages Routine Exams 05/07/21 14:51 Taken Blood Culture Rou shabbir Lab 05/05/21 17:54 Results Blood Culture Sta t Lab 05/05/21 13:22 Results Wound Culture and Gram Stain Routin e Lab 05/07/21 15:30 Results Labs from last 24 hours 05/08/21 05/08/21 05/08/21 10:43 06:06 04:38 WBC RBC Hgb Hct MCV MCH MCHC RDW Plt Count MPV Neut % (Auto) Lymph % (Auto) Churchill % (Auto) Eos % (Auto) Baso % (Auto) Neut # (Auto) Lymph # (Auto) Churchill # (Auto) Eos # (Auto) Baso # (Auto) Nucleated RBC % (a uto) Nucleated RBCs # Sodium 142 Potassium 4.5 Chloride 103 Carbon Dioxide 28 Anion Gap 15.5 BUN 16 Creatinine 1.1 H GFR Calculation 50.0 L Glucose 141 H POC Glucose 152 H 133 H Calculated Osmolal ity 298 H Calcium 8.9 05/08/21 05/07/21 05/07/21 04:38 20:28 16:51 WBC 7.7 RBC 4.10 Hgb 11.8 Hct 37.9 MCV 92.4 MCH 28.8 MCHC 31.1 RDW 13.2 Plt Count 270 MPV 11.4 H Neut % (Auto) 49.8 Lymph % (Auto) 35.7 Churchill % (Auto) 9.4 Eos % (Auto) 2.7 Baso % (Auto) 1.2 Neut # (Auto) 3.82 Lymph # (Auto) 2.7 Churchill # (Auto) 0.7 Eos # (Auto) 0.2 Baso # (Auto) 0.1 Nucleated RBC % (a uto) 0 Nucleated RBCs # 0.0 Sodium Potassium Chloride Carbon Dioxide Anion Gap BUN Creatinine GFR Calculation Glucose POC Glucose 166 H 121 H Calculated Osmolal ity Calcium Vitals: Last Vital Signs Temp 97.9 F 05/08/21 11:24 Pulse 66 05/08/21 11:24 Resp 16 05/08/21 11:24 BP 169/73 05/08/21 11:24 Pulse Ox 92 05/08/21 11:24 Discharge Plan Discharge Patient Disposition: Home Condition: Stable Prescriptions: New amoxicillin-pot clavulanate 875-125 mg Tablet 1 tab PO BID 10 Days Qty: 20 RF: 0 hydrocodone-acetaminophen 5-325 mg tablet 1 tab PO Q6H PRN (Reason: pain) Qty: 28 RF: 0 Continued Symbicort 160-4.5 mcg/actuation HFA aerosol inhaler 2 puff INHALATION BID PRN (Reason: PT STATES THIS IS AN OLD RX AND ONLY USES PRN) RF: 0 cetirizine 10 mg tablet 10 mg PO QAM RF: 0 aspirin 81 mg tablet,delayed release (DR/EC) 81 mg PO QAM RF: 0 docusate sodium 100 mg capsule See Rx Instructions .ROUTE .COMPLEX RF: 0 gabapentin 600 mg tablet 600 mg PO TID Qty: 90 RF: 2 (DME) Diabetic Shoes See Rx Instructions .ROUTE .MEDSUPPLY Qty: 1 RF: 0 metoprolol tartrate 100 mg tablet 100 mg PO BID Qty: 180 RF: 3 amlodipine 10 mg tablet 10 mg PO QAM RF: 0 cholecalciferol (vitamin D3) 1,250 mcg (50,000 unit) capsule 50,000 unit PO Q7D RF: 0 Dexilant 60 mg capsule,biphase delayed releas 60 mg PO BEDTIME RF: 0 metformin 500 mg tablet 500 mg PO BEDTIME RF: 0 losartan-hydrochlorothiazide 100-25 mg tablet 1 tab PO QAM RF: 0 paroxetine HCl 20 mg tablet 20 mg PO BEDTIME RF: 0 Trulicity 1.5 mg/0.5 mL pen injector 1.5 mg SUBCUT .weekly RF: 0 No Action fluconazole [Diflucan] 150 mg tablet 150 mg PO .Now repeat in 7 days Qty: 2 RF: 0 Discharge Orders: Discharge Order (Routine); Ordered 05/08/21 Ordered By: Sherly Colon Referrals: Tay Zaldivar MD [Physician] - 05/14/21 (Return to wound care center to follow up with Dr. Zaldivar in 1 week) Teresa Clifford FNP [Primary Care Provider] - 1 week Discharge Diet: Cardiac and Diabetic Discharge Activity: Increase activity as tolerated Patient Instructions: Sulfamethoxazole/Trimethoprim (By mouth), Amoxicillin/Clavulanate Potassium (By mouth), Cellulitis (GEN), Opioid Safety Activity Restrictions/Additional Instructions: 1-nutrition optimization and diabetes education 2-wound care in the form of daily packing with Kerlix wet-to-dry followed by ABDs 3-management of medical comorbidities per hospitalist and primary care provider services 4-return to wound care center in 1 week to follow-up with me 5-assurance and education All questions have been answered and all concerns have been addressed to patient's satisfaction. Discharge Attestations Time Spent in Discharge Care*: less than 30 min Quality Metrics Clinical Quality Measures During this hospital stay, did patient experience: None Coding Level of Care Code Acute Chg FW DC note Diagnoses Abscess L02.91
== END 2021-05-08 15:44 | disposition home or self-care (01) | DRG 571 ==
LOC: ER 13:31 → MEDSURG 15:43
PROVIDERS: Physician Assistant; Surgery; Admitting Provider Internal Medicine; Emergency Provider Family Medicine; PCP Registered Nurse; Visit Provider Internal Medicine
PROC: 0JBC0ZZ Excision of Pelvic Region Subcutaneous Tissue and Fascia, Open Approach (ICD-10-PCS; principal; 2021-05-07 15:00)
DX: L03.314 Cellulitis of groin (principal); Z68.42 Body mass index [BMI] 45.0-49.9, adult; L02.214 Cutaneous abscess of groin; E11.9 Type 2 diabetes mellitus without complications; J44.9 Chronic obstructive pulmonary disease, unspecified; M54.16 Radiculopathy, lumbar region; I87.2 Venous insufficiency (chronic) (peripheral); I35.1 Nonrheumatic aortic (valve) insufficiency; I10 Essential (primary) hypertension; F41.8 Other specified anxiety disorders; M17.0 Bilateral primary osteoarthritis of knee; G89.29 Other chronic pain; E78.5 Hyperlipidemia, unspecified; E66.01 Morbid (severe) obesity due to excess calories; I25.10 Atherosclerotic heart disease of native coronary artery without angina pectoris; E03.9 Hypothyroidism, unspecified; K21.9 Gastro-esophageal reflux disease without esophagitis; Z79.84 Long term (current) use of oral hypoglycemic drugs; Z95.5 Presence of coronary angioplasty implant and graft; Z79.82 Long term (current) use of aspirin; Z86.69 Personal history of other diseases of the nervous system and sense organs; Z87.891 Personal history of nicotine dependence; Z79.899 Other long term (current) drug therapy; Z96.659 Presence of unspecified artificial knee joint
CPT/HCPCS: 36415; 36416; 74177; 80048; 80053; 80202; 81003; 82962; 83605; 83735; 84145; 85025; 86140; 87040; 87070; 87075; 87077; 87186; 87205; 94640; 94660; 96365; 96366; 96367; 96372; 99285; J1644; J1815; J2250; J2405; J2543; J2704; J3010; J3370; J7050; Q9967

== ENCOUNTER 2021-05-14 09:40 | Outpatient (CLI) | payer MEDICARE, SELFPAY | END 2021-05-14 09:41 | disposition home or self-care (01) | LOC: WOUND 09:41 | PROVIDERS: PCP Registered Nurse; Visit Provider Surgery | DX: T81.89XA Other complications of procedures, not elsewhere classified, initial encounter (principal); Y83.8 Other surgical procedures as the cause of abnormal reaction of the patient, or of later complication, without mention of misadventure at the time of the procedure; I10 Essential (primary) hypertension; I87.2 Venous insufficiency (chronic) (peripheral); J44.9 Chronic obstructive pulmonary disease, unspecified; Z87.891 Personal history of nicotine dependence | CPT/HCPCS: 11042; 11045; G0463 ==

== ENCOUNTER 2021-05-19 14:09 | Outpatient (CLI) | payer MEDICARE, SELFPAY | END 2021-05-19 14:10 | disposition home or self-care (01) | LOC: WOUND 14:10 | PROVIDERS: PCP Registered Nurse; Visit Provider Nurse Practitioner Family | DX: T81.89XA Other complications of procedures, not elsewhere classified, initial encounter (principal); Y83.8 Other surgical procedures as the cause of abnormal reaction of the patient, or of later complication, without mention of misadventure at the time of the procedure; J44.9 Chronic obstructive pulmonary disease, unspecified; I10 Essential (primary) hypertension; E11.9 Type 2 diabetes mellitus without complications; Z87.891 Personal history of nicotine dependence | CPT/HCPCS: 11042; 11045 ==

== ENCOUNTER → 2021-05-25 16:44 | Outpatient (BNVA) | payer MEDICARE, SELFPAY | PROVIDERS: PCP Registered Nurse; Visit Provider Registered Nurse | DX: R50.9 Fever, unspecified (principal); Z20.822 Contact with and (suspected) exposure to COVID-19 | CPT/HCPCS: 85025; 87635 ==

== ENCOUNTER 2021-06-11 11:43 | Outpatient (CLI) | payer MEDICARE, SELFPAY | END 2021-06-11 11:44 | disposition home or self-care (01) | LOC: WOUND 11:44 | PROVIDERS: PCP Registered Nurse; Visit Provider Surgery | DX: T81.89XA Other complications of procedures, not elsewhere classified, initial encounter (principal); Y83.8 Other surgical procedures as the cause of abnormal reaction of the patient, or of later complication, without mention of misadventure at the time of the procedure; J44.9 Chronic obstructive pulmonary disease, unspecified; Z87.891 Personal history of nicotine dependence | CPT/HCPCS: 11042 ==

== ENCOUNTER 2021-07-02 13:04 | Outpatient (CLI) | payer MEDICARE, SELFPAY | END 2021-07-02 13:05 | disposition home or self-care (01) | LOC: WOUND 13:05 | PROVIDERS: PCP Registered Nurse; Visit Provider Surgery | DX: T81.89XA Other complications of procedures, not elsewhere classified, initial encounter (principal); Y83.8 Other surgical procedures as the cause of abnormal reaction of the patient, or of later complication, without mention of misadventure at the time of the procedure; J44.9 Chronic obstructive pulmonary disease, unspecified; I87.2 Venous insufficiency (chronic) (peripheral); Z87.891 Personal history of nicotine dependence | CPT/HCPCS: 11042 ==

== ENCOUNTER 2021-07-09 08:21 | Outpatient (CLI) | payer MEDICARE, SELFPAY | END 2021-07-09 08:22 | disposition home or self-care (01) | LOC: WOUND 08:22 | PROVIDERS: PCP Registered Nurse; Visit Provider Surgery | DX: T81.89XA Other complications of procedures, not elsewhere classified, initial encounter (principal); Y83.8 Other surgical procedures as the cause of abnormal reaction of the patient, or of later complication, without mention of misadventure at the time of the procedure; J44.9 Chronic obstructive pulmonary disease, unspecified; I87.2 Venous insufficiency (chronic) (peripheral); E11.9 Type 2 diabetes mellitus without complications; Z87.891 Personal history of nicotine dependence | CPT/HCPCS: 11042 ==

== ENCOUNTER 2021-07-16 08:01 | Outpatient (CLI) | payer MEDICARE, SELFPAY | END 2021-07-16 08:02 | disposition home or self-care (01) | LOC: WOUND 08:02 | PROVIDERS: PCP Registered Nurse; Visit Provider Nurse Practitioner Family | DX: T81.89XA Other complications of procedures, not elsewhere classified, initial encounter (principal); Y83.8 Other surgical procedures as the cause of abnormal reaction of the patient, or of later complication, without mention of misadventure at the time of the procedure; Z87.891 Personal history of nicotine dependence | CPT/HCPCS: 11042 ==

== ENCOUNTER 2021-07-23 08:13 | Outpatient (CLI) | payer MEDICARE, SELFPAY | END 2021-07-23 08:14 | disposition home or self-care (01) | LOC: WOUND 08:14 | PROVIDERS: PCP Registered Nurse; Visit Provider Surgery | DX: T81.89XA Other complications of procedures, not elsewhere classified, initial encounter (principal); Y83.8 Other surgical procedures as the cause of abnormal reaction of the patient, or of later complication, without mention of misadventure at the time of the procedure; J44.9 Chronic obstructive pulmonary disease, unspecified; E11.9 Type 2 diabetes mellitus without complications; Z87.891 Personal history of nicotine dependence | CPT/HCPCS: 11042 ==

== ENCOUNTER 2021-08-06 08:04 | Outpatient (CLI) | payer MEDICARE, SELFPAY | END 2021-08-06 08:05 | disposition home or self-care (01) | LOC: WOUND 08:06 | PROVIDERS: PCP Registered Nurse; Visit Provider Surgery | DX: T81.89XA Other complications of procedures, not elsewhere classified, initial encounter (principal); Y83.8 Other surgical procedures as the cause of abnormal reaction of the patient, or of later complication, without mention of misadventure at the time of the procedure; J44.9 Chronic obstructive pulmonary disease, unspecified; E11.9 Type 2 diabetes mellitus without complications; Z87.891 Personal history of nicotine dependence | CPT/HCPCS: 11042 ==

== ENCOUNTER → 2021-08-11 10:37 | Outpatient (BNVA) | payer MEDICARE, SELFPAY | PROVIDERS: PCP Registered Nurse; Visit Provider Anesthesiology Pain Medicine | DX: M54.16 Radiculopathy, lumbar region (principal); M47.816 Spondylosis without myelopathy or radiculopathy, lumbar region; M43.06 Spondylolysis, lumbar region; M47.812 Spondylosis without myelopathy or radiculopathy, cervical region; Z87.891 Personal history of nicotine dependence; Z79.891 Long term (current) use of opiate analgesic | CPT/HCPCS: 99214 ==

== ENCOUNTER 2021-08-13 09:16 | Outpatient (CLI) | payer MEDICARE, SELFPAY | END 2021-08-13 09:17 | disposition home or self-care (01) | LOC: WOUND 09:17 | PROVIDERS: PCP Registered Nurse; Visit Provider Thoracic Surgery (Cardiothoracic Vascular Surgery) | DX: T81.89XA Other complications of procedures, not elsewhere classified, initial encounter (principal); Y83.8 Other surgical procedures as the cause of abnormal reaction of the patient, or of later complication, without mention of misadventure at the time of the procedure; J44.9 Chronic obstructive pulmonary disease, unspecified; I87.2 Venous insufficiency (chronic) (peripheral); Z87.891 Personal history of nicotine dependence | CPT/HCPCS: 97597 ==

== ENCOUNTER → 2021-08-25 14:03 | Outpatient (BNVA) | payer MEDICARE, SELFPAY | PROVIDERS: PCP Registered Nurse; Visit Provider Anesthesiology Pain Medicine | DX: M54.16 Radiculopathy, lumbar region (principal); E11.9 Type 2 diabetes mellitus without complications; Z79.891 Long term (current) use of opiate analgesic | CPT/HCPCS: 36416; 64483; 64484; 82962; J1100; J3490 ==

== ENCOUNTER 2021-08-27 09:05 | Outpatient (CLI) | payer MEDICARE, SELFPAY | END 2021-08-27 09:06 | disposition home or self-care (01) | LOC: WOUND 09:08 | PROVIDERS: PCP Registered Nurse; Visit Provider Surgery | DX: T81.89XD Other complications of procedures, not elsewhere classified, subsequent encounter (principal); Y83.8 Other surgical procedures as the cause of abnormal reaction of the patient, or of later complication, without mention of misadventure at the time of the procedure; Z87.891 Personal history of nicotine dependence | CPT/HCPCS: 11042 ==

== ENCOUNTER 2021-09-03 08:41 | Outpatient (CLI) | payer MEDICARE, SELFPAY | END 2021-09-03 08:42 | disposition home or self-care (01) | LOC: WOUND 08:44 | PROVIDERS: PCP Registered Nurse; Visit Provider Surgery | DX: Z09 Encounter for follow-up examination after completed treatment for conditions other than malignant neoplasm (principal); Z87.891 Personal history of nicotine dependence | CPT/HCPCS: 99212 ==

== ENCOUNTER → 2021-09-14 10:08 | Outpatient (BNVA) | payer MEDICARE, SELFPAY | PROVIDERS: PCP Registered Nurse; Visit Provider Anesthesiology Pain Medicine | DX: M51.17 Intervertebral disc disorders with radiculopathy, lumbosacral region (principal); M47.816 Spondylosis without myelopathy or radiculopathy, lumbar region; M43.06 Spondylolysis, lumbar region; M47.812 Spondylosis without myelopathy or radiculopathy, cervical region; Z79.891 Long term (current) use of opiate analgesic; Z87.891 Personal history of nicotine dependence | CPT/HCPCS: 99214 ==

== ENCOUNTER → 2021-09-23 11:34 | Outpatient (BNVA) | payer MEDICARE, SELFPAY | PROVIDERS: PCP Registered Nurse; Visit Provider Registered Nurse | DX: E11.9 Type 2 diabetes mellitus without complications (principal); E53.8 Deficiency of other specified B group vitamins; I10 Essential (primary) hypertension; E78.5 Hyperlipidemia, unspecified | CPT/HCPCS: 80053; 80061; 81000; 82607; 83036; 85025 ==

== ENCOUNTER → 2021-10-28 10:16 | Outpatient (BNVA) | payer MEDICARE, SELFPAY | PROVIDERS: PCP Registered Nurse; Visit Provider Internal Medicine | DX: M25.50 Pain in unspecified joint (principal); E11.9 Type 2 diabetes mellitus without complications; Z79.84 Long term (current) use of oral hypoglycemic drugs; Z11.59 Encounter for screening for other viral diseases; E66.01 Morbid (severe) obesity due to excess calories; Z68.42 Body mass index [BMI] 45.0-49.9, adult; Z87.891 Personal history of nicotine dependence | CPT/HCPCS: 73120; 85651; 86160; 86162; 86200; 86235; 86255; 86376; 86431; 86704; 86803; 87340; 99203; 99204 ==

== ENCOUNTER → 2021-11-03 12:12 | Outpatient (BNVA) | payer MEDICARE, SELFPAY | PROVIDERS: PCP Registered Nurse; Visit Provider Internal Medicine | DX: M79.643 Pain in unspecified hand (principal); M35.1 Other overlap syndromes; E11.9 Type 2 diabetes mellitus without complications; Z79.84 Long term (current) use of oral hypoglycemic drugs; Z79.899 Other long term (current) drug therapy; Z87.891 Personal history of nicotine dependence | CPT/HCPCS: 99214 ==

== ENCOUNTER → 2021-12-28 11:22 | Outpatient (BNVA) | payer MEDICARE, SELFPAY | PROVIDERS: PCP Registered Nurse; Visit Provider Registered Nurse | DX: M10.9 Gout, unspecified (principal); E11.9 Type 2 diabetes mellitus without complications; I10 Essential (primary) hypertension | CPT/HCPCS: 80053; 83036; 84550; 85025 ==

== ENCOUNTER 2022-01-10 09:32 | Emergency (ER) | payer MEDICARE, SELFPAY ==
[2022-01-10 09:49] VITALS: BP 155/82; PULSE 60; RESP 18; TEMP 36.8; O2SAT 98; BMI 46.6
--- NOTE | 2022-01-10 11:40 | W.ED.SKABFB ---
HPI - Skin/Abscess/Foreign Bdy General: Chief complaint: Skin/Abscess/Foreign Body Stated complaint: Spot on Face Time Seen by Provider: 01/10/22 09:34 Source: patient Mode of arrival: ambulatory Limitations: no limitations History of Present Illness: Patient is a 66-year-old female presents to ED today with a complaint of a skin lesion/abscess to her left temporal region that she has had for a couple of days. She states she initially thought it was related to a bug bite as it was small. She was seen at an outside clinic and prescribed cephalexin. She has been on that for over 48 hours now and has failed to see any type of clinical response. She states abscess continues to enlarge and become painful. MD complaint: abscess/boil Onset (ago): day(s) Tetanus up to date: yes Location: face Severity: moderate Pain Consistency: constant Relieving factors: none Exacerbating factors: none Context: none Associated symptoms: Reports no associated symptoms; Deny chills or fever(s) Treatments prior to arrival: antibiotic Review of Systems Const: Denies: fever(s), chills, body aches, fatigue or malaise Eyes: Denies: change in vision, blurry vision or photophobia Skin/Breast: Reports: other (facial abscess) Neuro: Denies: headache(s) or dizziness PFSH ED PFSH: Medical History Advanced directives, counseling/discussion Anxiety and depression Aortic insufficiency dx 10/14/02 Dr Kam Martinez Arthralgia of both knees Back pain, lumbosacral Chronic joint pain Common migraine with intractable migraine COPD (chronic obstructive pulmonary disease) Essential hypertension Former heavy cigarette smoker (20-39 per day) Quit in 2009 Gastroesophageal reflux disease without esophagitis History of prior cigarette smoking Hyperlipidemia Hypothyroidism (acquired) Left Achilles tendinitis Mixed connective tissue disease Obesity Opioid contract exists Personal history of nicotine dependence Quit 2009 Type 2 diabetes mellitus Venous insufficiency of both lower extremities Surgical History History of delivery History of knee replacement 2009 Stented coronary artery 2 stents done 02/16/96 in [place] Family History Other CAD (coronary artery disease) Cancer Diabetes Denies family history of Rheumatoid arthritis Lupus Hyperlipidemia Chronic kidney disease (CKD) Hypertension Stroke Social History Smoking and tobacco status: former smoker Quit status (tobacco): has quit using tobacco Year quit tobacco: 2009 Alcohol intake: never Lives independently: No Household members: spouse Marital status: Current occupational status: unemployed History of recent travel: No Current gender identity: Female Physical Exam Const: COMMON NORMALS: no acute distress, patient oriented x3, no limitations and alert ORIENTATION/CONSCIOUSNESS: Yes awake, Yes oriented to person, Yes oriented to place and Yes oriented to time HENMT: COMMON NORMALS: normocephalic, atraumatic and Normal external nose present HEAD & SCALP: normal to inspection, normocephalic and atraumatic FACE & SINUS IMAGES: 1. quarter sized indurated scabbed abscess NOSE: Normal external nose present Eye: GENERAL EYE: appearance normal, both eyes and all related structures Neck/C-Spine: COMMON NORMALS: full ROM, no lymphadenopathy and no meningeal signs Neuro: LUISITO COMA SCALE: document GCS findings Luisito coma scale eye opening: Spontaneous Luisito coma scale verbal response: Orientated Luisito coma scale motor response: Obey commands Luisito coma scale total score: 15 COMMON NORMALS: patient oriented x3, CN's II-XII intact bilaterally, moves all extremities, no focal motor deficits and no sensory deficits noted SENSORIUM/ORIENTATION: Yes alert, Yes oriented to person, Yes oriented to place and Yes oriented to time MENINGEAL SIGNS: Yes no meningeal signs Course Vital Signs: Vital signs: Vital Signs Temperature 98.2 F 01/10/22 09:49 Pulse Rate 60 01/10/22 09:49 Respiratory Rate 18 01/10/22 09:49 Blood Pressure 155/82 01/10/22 09:49 Pulse Oximetry 98 01/10/22 09:49 MDM - Skin/Abscess/Foreign Bdy Medicial Decision Making Scab was gently unroofed and small amount of purulent drainage expressed-should be enough to culture so this was obtained. Nothing big/deep enough to pack so encouraged warm compresses. Will add additional abx coverage for MRSA as she has failed to have a clinical response to the cephalexin. Return to ED precautions given. Discharge Plan Discharge Patient Disposition: Home Clinical Impression: Abscess of face Condition: Stable Prescriptions: New doxycycline monohydrate 100 mg capsule 100 mg PO Q12H 10 Days Qty: 20 0RF No Action cetirizine 10 mg tablet 10 mg PO QAM 0RF aspirin 81 mg tablet,delayed release (DR/EC) 81 mg PO QAM 0RF docusate sodium 100 mg capsule See Rx Instructions .ROUTE .COMPLEX 0RF Rx Instructions: 100 mg PO QAM AND 200MG PO BEDTIME albuterol sulfate 2.5 mg /3 mL (0.083 %) solution for nebulization 2.5 mg inhalation Q4H PRN (Reason: bronchospasm) 30 Days Qty: 180 0RF gabapentin 600 mg tablet 600 mg PO TID Qty: 90 2RF (DME) Diabetic Shoes See Rx Instructions .ROUTE .MEDSUPPLY Qty: 1 0RF Rx Instructions: As directed, with 3 pairs of inserts J P & O triamcinolone acetonide 0.025 % cream 1 applic topical DAILY 0RF meloxicam 15 mg tablet 15 mg PO DAILY Qty: 30 0RF diclofenac sodium [Voltaren Arthritis Pain] 1 % gel 4 g topical QID Qty: 100 0RF Rx Instructions: apply to single knee, ankle, foot; for foot includes sole/toes/top of foot colchicine [Colcrys] 0.6 mg tablet 1.2 mg PO DAILY 3 Days Qty: 6 0RF cephalexin 500 mg capsule 500 mg PO TID 7 Days Qty: 21 0RF Trelegy Ellipta 100-62.5-25 mcg blister with device 1 inh inhalation DAILY Qty: 1 0RF metoprolol tartrate 100 mg tablet 100 mg PO BID Qty: 180 3RF metformin 500 mg tablet 500 mg PO BEDTIME Qty: 90 0RF simvastatin 40 mg tablet 40 mg PO ONCE Qty: 90 0RF cholecalciferol (vitamin D3) 1,250 mcg (50,000 unit) capsule See Rx Instructions .ROUTE .COMPLEX Qty: 12 0RF Dose Instruction: TAKE ONE CAPSULE BY MOUTH ONCE WEEKLY Rx Instructions: TAKE ONE CAPSULE BY MOUTH ONCE WEEKLY dexlansoprazole 60 mg capsule,biphase delayed releas See Rx Instructions .ROUTE .COMPLEX Qty: 90 0RF Dose Instruction: TAKE 1 CAPSULE BY MOUTH DAILY Rx Instructions: TAKE 1 CAPSULE BY MOUTH DAILY losartan-hydrochlorothiazide 100-25 mg tablet See Rx Instructions .ROUTE .COMPLEX Qty: 90 0RF Dose Instruction: TAKE 1 TABLET BY MOUTH DAILY Rx Instructions: TAKE 1 TABLET BY MOUTH DAILY amlodipine 10 mg tablet 10 mg PO QAM 90 Days Qty: 90 0RF Ozempic 0.25 mg or 0.5 mg(2 mg/1.5 mL) pen injector 0.5 mg SUBCUT .once a week 90 Days Qty: 1.5 3RF Rx Instructions: 340b (DME) blood sugar diagnostic Strip See Rx Instructions .Route Qty: 100 0RF Rx Instructions: use to check blood sugars once daily (DME) lancets [Accu-Chek Softclix Lancets] Misc See Rx Instructions .Route Qty: 200 0RF Rx Instructions: use to check blood sugar once daily paroxetine HCl 20 mg tablet 20 mg PO BEDTIME Qty: 90 0RF hydrocodone-acetaminophen 5-325 mg tablet 1 tab PO Q6H PRN (Reason: pain) Qty: 28 0RF Discharge Orders: Discharge ED (Routine); Ordered 01/10/22 Ordered By: Jyotsna Suárez Referrals: Teresa Clifford FNP [Primary Care Provider] - Patient Instructions: Abscess (ED) Activity Restrictions/Additional Instructions: As we discussed please do warm compresses to the area as many times as possible daily to help facilitate drainage. Begin your antibiotics immediately. Continue the cephalexin that you have started. Please follow-up with primary care in 2 to 3 days for re-evaluation. You need to return to the emergency department for worsening or enlarging abscess despite antibiotics. Coding Level of Care Code ED Manager Nursing for Jose Angel Harris
== END 2022-01-10 12:34 | disposition home or self-care (01) ==
PROVIDERS: Emergency Provider Physician Assistant; PCP Registered Nurse
DX: L02.01 Cutaneous abscess of face (principal); Z79.82 Long term (current) use of aspirin; J44.9 Chronic obstructive pulmonary disease, unspecified; I10 Essential (primary) hypertension; E78.5 Hyperlipidemia, unspecified; E11.9 Type 2 diabetes mellitus without complications; Z87.891 Personal history of nicotine dependence
CPT/HCPCS: 87070; 87075; 87077; 87186; 87205; 99283

== ENCOUNTER 2022-01-17 08:34 | Outpatient (CLI) | payer MEDICARE, SELFPAY ==
[2022-01-17 09:29] LABS: Basophils # 0.1 10^3/uL (0.0-0.1); Basophils % 0.9 %; Eosinophils # 0.2 10^3/uL (0.0-0.8); Eosinophils % 2.2 %; Hematocrit 47.9 % (37.0-47.0); Hemoglobin 14.9 g/dL (11.5-15.3); Lymphocytes # 3.3 10^3/uL (0.8-4.8); Lymphocytes % 31.8 %; Mean Corpuscular HGB Conc 31.1 g/dL (30.0-36.0); Mean Corpuscular Hemoglobin 28.4 pg (28.0-34.0); Mean Corpuscular Volume 91.4 fl (81-99); Mean Platelet Volume 10.8 fL (7.4-10.4); Monocytes # 0.8 10^3/uL (0.2-0.9); Monocytes % 7.2 %; Neutrophils # 5.91 10^3/uL (1.8-7.7); Neutrophils % 57.1 %; Nucleated Red Blood Cells % 0 %; Platelet Count 292 10^3/cmm (130-400); Red Blood Count 5.24 10^6/uL (4.1-5.3); Red Cell Distribution Width 13.6 % (12.1-15.1); White Blood Count 10.4 10^3/uL (4.0-10.0)
[2022-01-17 09:52] LABS: Alanine Aminotransferase 16 U/L (0-33); Albumin Level 4.4 g/dL (3.5-5.2); Alkaline Phosphatase 89 IU/L (35-105); Blood Urea Nitrogen 18 mg/dL (8-23); Calcium 9.5 mg/dL (8.5-10.5); Carbon Dioxide 28 mmol/L (22-29); Chloride 99 mmol/L (98-107); Globulin 2.9 g/dL (1.3-4.6); Glomerular Filtration Rate 55.8 mL/min (90-130); Glucose 125 mg/dL (65-115); Osmolality Calculated 291 mOsm/kg (285-295); Sodium 139 mmol/L (136-145); Total Bilirubin 0.2 mg/dL (0.15-1.2); Total Protein 7.3 g/dL (6.6-8.7)
[2022-01-17 09:58] LABS: Aspartate Amino Transferase 16 U/L (0-32)
[2022-01-17 10:34] LABS: Erythrocyte Sedimentation Rate 8 mm/hr (0-15)
== END 2022-01-17 08:35 | disposition home or self-care (01) ==
LOC: LAB 08:41
PROVIDERS: PCP Registered Nurse; Visit Provider Internal Medicine
DX: M35.1 Other overlap syndromes (principal); Z79.899 Other long term (current) drug therapy
CPT/HCPCS: 36415; 80053; 85025; 85651; 86140

== ENCOUNTER → 2022-01-18 08:46 | Outpatient (BNVA) | payer MEDICARE, SELFPAY | PROVIDERS: PCP Registered Nurse; Visit Provider Anesthesiology Pain Medicine | DX: M54.16 Radiculopathy, lumbar region (principal); M47.816 Spondylosis without myelopathy or radiculopathy, lumbar region; M43.06 Spondylolysis, lumbar region; M47.812 Spondylosis without myelopathy or radiculopathy, cervical region; Z79.891 Long term (current) use of opiate analgesic; Z87.891 Personal history of nicotine dependence | CPT/HCPCS: 99214 ==

== ENCOUNTER → 2022-02-01 11:40 | Outpatient (BNVA) | payer MEDICARE, SELFPAY | PROVIDERS: PCP Registered Nurse; Visit Provider Internal Medicine | DX: M25.50 Pain in unspecified joint (principal); M35.1 Other overlap syndromes | CPT/HCPCS: 99204 ==

== ENCOUNTER → 2022-02-24 13:40 | Outpatient (BNVA) | payer MEDICARE, SELFPAY | PROVIDERS: PCP Registered Nurse; Visit Provider Internal Medicine | DX: I35.1 Nonrheumatic aortic (valve) insufficiency (principal); I87.2 Venous insufficiency (chronic) (peripheral); I25.10 Atherosclerotic heart disease of native coronary artery without angina pectoris; I10 Essential (primary) hypertension; Z87.891 Personal history of nicotine dependence | CPT/HCPCS: 99214 ==

== ENCOUNTER 2022-04-12 14:40 | Outpatient (CLI) | payer MEDICARE, SELFPAY ==
--- NOTE | 2022-04-12 14:57 | MM_ITS ---
WS: [id number] BILATERAL 3D TOMOSYNTHESIS DIGITAL SCREENING MAMMOGRAPHY WITH CAD CLINICAL INFORMATION: SCREEN HISTORY: Screening mammogram. No current complaints. COMPARISON: April 08, 2021 TECHNIQUE: Bilateral CC and MLO views. FINDINGS: Scattered fibroglandular densities bilaterally. No suspicious focal mass, asymmetry, calcifications, or architectural distortion. No evidence of malignancy. Punctate and lucent centered calcifications. Vascular calcification. MM/[place] [id number] IMPRESSION: BI-RADS: 2-Benign FOLLOW UP: 1 Year Follow-up Recommend return to annual screening mammography.
== END 2022-04-12 14:41 | disposition home or self-care (01) ==
LOC: RAD 14:40
PROVIDERS: PCP Registered Nurse; Visit Provider Registered Nurse
DX: Z12.31 Encounter for screening mammogram for malignant neoplasm of breast (principal)
CPT/HCPCS: 77063; 77067

== ENCOUNTER → 2022-04-14 10:01 | Outpatient (BNVA) | payer MEDICARE, SELFPAY | PROVIDERS: PCP Registered Nurse; Visit Provider Registered Nurse | DX: I10 Essential (primary) hypertension (principal); E11.9 Type 2 diabetes mellitus without complications; Z71.85 Encounter for immunization safety counseling; Z23 Encounter for immunization | CPT/HCPCS: 80053; 83036 ==

== ENCOUNTER → 2022-04-19 09:17 | Outpatient (BNVA) | payer MEDICARE, SELFPAY | PROVIDERS: PCP Registered Nurse; Visit Provider Anesthesiology Pain Medicine | DX: M54.16 Radiculopathy, lumbar region (principal); M47.816 Spondylosis without myelopathy or radiculopathy, lumbar region; M43.06 Spondylolysis, lumbar region; M47.812 Spondylosis without myelopathy or radiculopathy, cervical region; Z87.891 Personal history of nicotine dependence | CPT/HCPCS: 99213 ==

== ENCOUNTER → 2022-04-25 11:32 | Outpatient (BNVA) | payer MEDICARE, SELFPAY | PROVIDERS: PCP Registered Nurse; Visit Provider Registered Nurse | DX: L02.01 Cutaneous abscess of face (principal) | CPT/HCPCS: 87070; 87077; 87184 ==

== ENCOUNTER → 2022-06-30 10:27 | Outpatient (BNVA) | payer MEDICARE, SELFPAY | PROVIDERS: PCP Registered Nurse; Visit Provider Internal Medicine | DX: M35.9 Systemic involvement of connective tissue, unspecified (principal); Z79.899 Other long term (current) drug therapy | CPT/HCPCS: 36415; 80053; 84443; 85025; 85651; 86140; 99213 ==

== ENCOUNTER 2022-09-01 09:33 | Outpatient (CLI) | payer MEDICARE, SELFPAY ==
--- NOTE | 2022-09-01 10:00 | USCV_ITS ---
Janet Pillai Age: 67 Gender: F : 1955 Exam Date: 09/01/2022 10:37 Ordering Phys: Thiago Rodriguez M.D ([email or web address]) Technologist: Miriam George Exam Location: [facility] [place] Indication: SOB BP: 114 / 71 HR: 72 Rhythm: Sinus Technical Quality: Suboptimal MEASUREMENTS (Male / Female) Normal Values 2D ECHO LV Diastolic Diameter PLAX 5.8 cm 4.2 - 5.9 / 3.9 - 5.3 cm LV Systolic Diameter PLAX 4.2 cm LV Chamber Size 4.4 cm IVS Diastolic Thickness 1.4 cm 0.6 - 1.0 / 0.6 - 0.9 cm IVS Systolic Thickness 1.7 cm LVPW Diastolic Thickness 1.0 cm 0.6 - 1.0 / 0.6 - 0.9 cm LVPW Systolic Thickness 1.6 cm RV Chamber Size 4.4 cm LVOT Diameter 2.1 cm LV Ejection Fraction 2D Teich 52.3 % LV Ejection Fraction MOD 2C 52.9 % LV Ejection Fraction 2C AL 58.8 % LA Diameter 4.8 cm LA Width 3.7 cm LA Height 5.2 cm RA Width 3.2 cm RA Height 4.4 cm IVC Diameter 2.1 cm M-MODE Aortic Annulus Diameter 3.0 cm LA Ao Ratio MM 1.8 MV E Point Septal Separation 0.9 cm DOPPLER AV Peak Velocity 203.0 cm/s LVOT Peak Velocity 132.0 cm/s AV Area Cont Eq vti 2.3 cm squared AV Area Cont Eq pk 2.2 cm squared MV Area PHT 5.0 cm squared Mitral E to A Ratio 1.7 MV E' Velocity 57.5 cm/s Mitral E to MV E' Ratio 11.4 Mitral E to LV E' Lateral Ratio 11.9 Mitral E to LV E' Septal Ratio 11.0 TR Peak Velocity 185.0 cm/s TR Peak Gradient 13.7 mmHg TR Mean Velocity 124.6 cm/s TR Mean Gradient 6.8 mmHg TR Velocity Time Integral 39.0 cm TV Peak E Velocity 48.0 cm/s Right Atrial Pressure 3.0 mmHg Pulmonary Artery Systolic Pressu 16.7 mmHg RV Acceleration Time 0.2 s RV Ejection Time 0.4 s RV AcT/ET 0.5 FINDINGS Left Ventricle The study is suboptimal secondary to the patient's body habitus. She was unable to cooperate because of severe shortness of breath. Left ventricular size is essentially normal. The left ventricular function is lower limit of normal. No wall motion disturbances. Ejection fraction about 50 to 55%. Grade 1 diastolic dysfunction. Right Ventricle Right ventricle is upper limit of normal right ventricle is upper limit of normal in size. Normal right ventricular function. Normal right ventricular systolic pressure. Right Atrium Mildly increased right atrial size. Left Atrium Mildly increased left atrial size. Mitral Valve Structurally normal mitral valve. Mild mitral valve regurgitation. Aortic Valve Structurally normal aortic valve without significant sclerosis or stenosis. There is no aortic regurgitation. Tricuspid Valve Structurally normal tricuspid valve without significant stenosis or regurgitation. Pulmonary artery systolic pressure is normal. Pulmonic Valve Pulmonic valve not well visualized. Pericardium Normal pericardium without effusion. Aorta Normal ascending aorta dimension. IVC Inferior vena cava not visualized. CONCLUSIONS The study is suboptimal secondary to the patient's body habitus. She was unable to cooperate because of severe shortness of breath. Left ventricular size is essentially normal. The left ventricular function is lower limit of normal. No wall motion disturbances. Ejection fraction about 50 to 55%. Grade 1 diastolic dysfunction. Mildly increased right atrial size. Mildly increased left atrial size. Structurally normal mitral valve. Mild mitral valve regurgitation. Study is unchanged essentially from the previous echo done 11/22/2020. Dr. Camron Thapa MD (Electronically Signed) Final Date: 01 September 2022 18:05 S
== END 2022-09-01 09:34 | disposition home or self-care (01) ==
PROVIDERS: PCP Registered Nurse; Visit Provider Internal Medicine
DX: R06.02 Shortness of breath (principal); I34.0 Nonrheumatic mitral (valve) insufficiency; I35.1 Nonrheumatic aortic (valve) insufficiency; I87.2 Venous insufficiency (chronic) (peripheral); I25.10 Atherosclerotic heart disease of native coronary artery without angina pectoris; Z87.891 Personal history of nicotine dependence; I10 Essential (primary) hypertension
CPT/HCPCS: 93306; 99214

== ENCOUNTER → 2022-10-19 09:28 | Outpatient (BNVA) | payer MEDICARE, SELFPAY | PROVIDERS: PCP Registered Nurse; Visit Provider Anesthesiology Pain Medicine | DX: M54.16 Radiculopathy, lumbar region (principal); M47.816 Spondylosis without myelopathy or radiculopathy, lumbar region; M43.06 Spondylolysis, lumbar region; M47.812 Spondylosis without myelopathy or radiculopathy, cervical region; M25.50 Pain in unspecified joint | CPT/HCPCS: 99213 ==

== ENCOUNTER → 2022-10-20 09:45 | Outpatient (BNVA) | payer MEDICARE, SELFPAY | PROVIDERS: PCP Registered Nurse; Visit Provider Registered Nurse | DX: E11.9 Type 2 diabetes mellitus without complications (principal) | CPT/HCPCS: 80053; 83036 ==

== ENCOUNTER → 2022-11-01 14:32 | Outpatient (BNVA) | payer MEDICARE, SELFPAY | PROVIDERS: PCP Registered Nurse; Visit Provider Internal Medicine | DX: M35.1 Other overlap syndromes (principal); M25.50 Pain in unspecified joint; Z79.52 Long term (current) use of systemic steroids | CPT/HCPCS: 99213 ==

== ENCOUNTER → 2022-12-16 09:06 | Outpatient (BNVA) | payer MEDICARE, SELFPAY | PROVIDERS: PCP Registered Nurse; Visit Provider Internal Medicine | DX: I35.1 Nonrheumatic aortic (valve) insufficiency (principal); I87.2 Venous insufficiency (chronic) (peripheral); I25.10 Atherosclerotic heart disease of native coronary artery without angina pectoris; Z87.891 Personal history of nicotine dependence; I10 Essential (primary) hypertension; J44.9 Chronic obstructive pulmonary disease, unspecified | CPT/HCPCS: 36415; 80048; 83880; 99214 ==

== ENCOUNTER → 2022-12-20 09:11 | Outpatient (BNVA) | payer MEDICARE, SELFPAY | PROVIDERS: PCP Registered Nurse; Visit Provider Podiatrist Foot & Ankle Surgery | DX: I73.9 Peripheral vascular disease, unspecified (principal); L60.3 Nail dystrophy; E11.40 Type 2 diabetes mellitus with diabetic neuropathy, unspecified; M21.41 Flat foot [pes planus] (acquired), right foot; M21.42 Flat foot [pes planus] (acquired), left foot; M20.41 Other hammer toe(s) (acquired), right foot; M20.42 Other hammer toe(s) (acquired), left foot | CPT/HCPCS: 99214 ==

== ENCOUNTER → 2023-04-21 10:48 | Outpatient (BNVA) | payer MEDICARE, SELFPAY | PROVIDERS: PCP Registered Nurse; Visit Provider Registered Nurse | DX: E11.9 Type 2 diabetes mellitus without complications (principal); I10 Essential (primary) hypertension; E78.5 Hyperlipidemia, unspecified | CPT/HCPCS: 80053; 80061; 83036; 85025 ==

== ENCOUNTER → 2023-04-24 10:11 | Outpatient (BNVA) | payer MEDICARE, SELFPAY | PROVIDERS: PCP Registered Nurse; Visit Provider Anesthesiology Pain Medicine | DX: M54.16 Radiculopathy, lumbar region; M47.816 Spondylosis without myelopathy or radiculopathy, lumbar region; M43.06 Spondylolysis, lumbar region; M47.812 Spondylosis without myelopathy or radiculopathy, cervical region; M48.061 Spinal stenosis, lumbar region without neurogenic claudication; M25.561 Pain in right knee | CPT/HCPCS: 99214 ==

== ENCOUNTER → 2023-04-25 11:15 | Outpatient (BNVA) | payer MEDICARE, SELFPAY | PROVIDERS: PCP Registered Nurse; Visit Provider Podiatrist Foot & Ankle Surgery | DX: L60.3 Nail dystrophy (principal); I73.9 Peripheral vascular disease, unspecified; E11.40 Type 2 diabetes mellitus with diabetic neuropathy, unspecified | CPT/HCPCS: 11721 ==

== ENCOUNTER 2023-05-05 13:31 | Outpatient (CLI) | payer MEDICARE, SELFPAY ==
--- NOTE | 2023-05-05 13:58 | MM_ITS ---
WS: [id number] BILATERAL 3D TOMOSYNTHESIS DIGITAL SCREENING MAMMOGRAPHY WITH CAD CLINICAL INFORMATION: SCREEN HISTORY: Screening mammogram. No current complaints. COMPARISON: 2021 TECHNIQUE: Bilateral CC and MLO views. FINDINGS: Scattered fibroglandular densities bilaterally. No suspicious focal mass, asymmetry, calcifications, or architectural distortion. No evidence of malignancy. A few incidental punctate and lucent centered calcifications. Vascular calcifications. IMPRESSION: MM/[place] [id number] BI-RADS: 2-Benign FOLLOW UP: 1 Year Follow-up Recommend return to annual screening mammography.
--- NOTE | 2023-05-05 14:45 | CT_ITS ---
WS: [id number] LDCT LUNG CANCER SCREENING HISTORY: Z12.2 - Encounter for screening for malignant neoplasm of... TECHNIQUE: Axial imaging performed from the apices to 1 cm below the costophrenic angles. Coronal and sagittal reformats are submitted with axial MIP series. All CT scans at [facility] use at least one of these dose optimization techniques: automated exposure control; mA and/or kV adjustment per patient size (includes targeted exams where dose is matched to clinical indication); or iterativ e reconstruction. DLP: 224.51 mGy.cm DIvol: Mean CTDIvol: 5.40 (mGy) COMPARISON: 04/14/2021 Diagnostic quality: Satisfactory Lungs: New nodular and tubular opacifications in the LEFT upper lobe. Nodular component measures 8 mm . These are not present on 04/14/2021. There are few scattered benign micronodules. No additional mas s or nodule. No endobronchial lesions. Heart: Mild cardiomegaly.. Other findings: Mild atherosclerosis aorta. Mildly dilated pulmonary artery. No adenopathy. Small hia denae hernia. Hepatic steatosis. Splenic and splenic granulomata. Nonobstructing upper pole LEFT renal calculus. IMPRESSION: CT/CT lung screening [id number] LUNG-RADS: 4A-Probably Suspicious FOLLOW UP: 3 Month LDCT OTHER FINDINGS (S MODIFIER): None. New, nodular and tubular opacifications in the LEFT upper lobe. New since 04/14. May be endobronchial secretions or pneumonia or early neoplasm. Recommen d follow-up chest CT with IV contrast in 3 months.
== END 2023-05-05 13:32 | disposition home or self-care (01) ==
LOC: RAD 13:31
PROVIDERS: PCP Registered Nurse; Visit Provider Registered Nurse
DX: Z13.1 Encounter for screening for diabetes mellitus (principal); Z12.2 Encounter for screening for malignant neoplasm of respiratory organs; Z87.891 Personal history of nicotine dependence
CPT/HCPCS: 71271; 77063; 77067

== ENCOUNTER → 2023-05-09 09:46 | Outpatient (BNVA) | payer MEDICARE, SELFPAY | PROVIDERS: PCP Registered Nurse; Visit Provider Anesthesiology Pain Medicine | DX: M17.12 Unilateral primary osteoarthritis, left knee (principal); M54.16 Radiculopathy, lumbar region; M47.816 Spondylosis without myelopathy or radiculopathy, lumbar region; M43.06 Spondylolysis, lumbar region; M48.061 Spinal stenosis, lumbar region without neurogenic claudication; M47.812 Spondylosis without myelopathy or radiculopathy, cervical region | CPT/HCPCS: 20610; 99214; J1030; J3490 ==

== ENCOUNTER → 2023-05-17 09:43 | Outpatient (BNVA) | payer MEDICARE, SELFPAY | PROVIDERS: PCP Registered Nurse; Visit Provider Internal Medicine Pulmonary Disease | DX: R91.1 Solitary pulmonary nodule (principal); J44.9 Chronic obstructive pulmonary disease, unspecified; Z87.891 Personal history of nicotine dependence; G47.33 Obstructive sleep apnea (adult) (pediatric) | CPT/HCPCS: 99204 ==

== ENCOUNTER → 2023-05-23 13:26 | Outpatient (BNVA) | payer MEDICARE, SELFPAY | PROVIDERS: PCP Registered Nurse; Visit Provider Internal Medicine | DX: M35.1 Other overlap syndromes (principal); M25.50 Pain in unspecified joint | CPT/HCPCS: 99214 ==

== ENCOUNTER 2023-06-06 12:41 | Outpatient (CLI) | payer MEDICARE, SELFPAY ==
--- NOTE | 2023-06-07 08:42 | P.DIET_ITS ---
Reason for Visit: 67289 E11.9 E66.01 Z68.42 Person Interviewed: Patient Medical History, Labs and Background: Janet endorsed COPd, asthma, bronchitis, bad back, knee injury, HTN, DM@ though she said her provider took her off medications for it, heavy smoker ( at one point, 5 packs a day)but she said she quit and a heart attack in 1996. Height: 5 ft 8 in Weight: 304 lb BMI: 46.3 kg/m2 UBW: This is a typical weight for her. IBW: She would like to weigh what she weighed 50 years ago which is 150 lbs. Weight History: Janet said she has always been big. One of the few times she was thinner was during - she did not usually gain weight. Concerns and Goals: Her wants her to lose weight - but interestingly e nough, their interaction was loving and playful, at least what I saw? Sleep Hygiene: She has a CPAP but it broke. Currently she has nothing but has been hung up on when calling to get it fixed. I encouraged her to keep at it. Physical Activity: Activity is hard r/t her knees, one of which has been replaced and the other hurts. GI Symptoms: Constipation Other Feeding Issues: No significant issues. Food Allergies and Sensitivities: NKA to food. 24 Hour Recall: Breakfast Time: 7-9am mostly not hungry, maybe 1-2c. coffee Snack Time: Lunch Time: 1-2pm maybe bologna sandwich or ramen noodles Snack Time: Dinner Time: 6-8pm spaghetti+meat sauce+butter bread, coffee Snack Time: Soda vs Milk vs Water: [facility] De-diet, 4-5 glasses water/day, 1-2 cups coffee. 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 Meat and potatoes is more her style, she said she is not a salad girl. Because her doesn't have teeth, they don't do salads or a lot of veggies, plus salads don't fill her up. Though she endorsed being mostly not hungry she also referenced not being able to fill up. Her goal is to lose half her weight and I discussed that starting with 10- 20% wt loss would be beneficial. Recommendations: Assessment: Janet wants to lose weight and her wants her to as well. But I didn't sense motivation to lose weight? Nutrition Dx: Excessive energy intake r/t habits and patterns AEB BMI of 46.3 kg/m2. INtervention: We talked through some handouts on wt loss and the Diabetic plate method and she was tracking, but not super motivated. Because she enjoys cooking we talked about that and ways to tweak what she does now and slowly lose weight. In her mind she doesn't eat much and if her reporting was correct, she doesn't. Her sister in law is her suppport system and her is/ but also isn't because he doesn't want to change. Monitoring and Intervention: On the handouts I wrote my email and phone number/extension at [facility]. Compliance unlikely I am sad to say. Coding Level of Care Code Nutrition/Individ/Init 60 min Time Spent (min) 55
== END 2023-06-06 12:42 | disposition home or self-care (01) ==
LOC: DIET 12:41
PROVIDERS: PCP Registered Nurse; Visit Provider Registered Nurse
DX: E11.9 Type 2 diabetes mellitus without complications (principal); E66.01 Morbid (severe) obesity due to excess calories; Z68.42 Body mass index [BMI] 45.0-49.9, adult
CPT/HCPCS: 97802

== ENCOUNTER 2023-06-13 08:38 | Outpatient (CLI) | payer MEDICARE, SELFPAY ==
[2023-06-13 09:00] VITALS: PULSE 58; RESP 20; O2SAT 98
[2023-06-13 09:06] VITALS: PULSE 51
[2023-06-13] MEDS: albuterol 2.5 mg/3 mL Neb INHALATION (09:06)
[2023-06-13] MEDS: iohexol 350 mg/mL 500 mL Btl (per mL) IV (10:53)
--- NOTE | 2023-06-13 11:00 | CT_ITS ---
WS: [id number] CT chest w con* [id number] HISTORY: R91.8 - Other nonspecific abnormal finding of lung field TECHNIQUE: Axial imaging performed through the thorax. Coronal and sagittal reformats are submitted. All CT scans at [facility] use at least one of these dose optimization techniques: automated exposure control; mA and/or kV adjustment per patient size (includes targeted exams where dose is mat ched to clinical indication); or iterative reconstruction. CONTRAST: Omnipaque 350; 100 mL IV. DLP: 755.35 mGy.cm COMPARISON: 05/05/2023 Lungs and central airway: Reidentified of the small pulmonary nodules and tubular opacifications LEFT upper lobe with no improvement. Advanced centrilobular emphysema. No mass. Pleura: Normal. No pleural effusion. Heart and pericardium: Normal size heart with no pericardial effusion. Mediastinum and kaley: Abnormal lymph nodes in the mediastinum and hilum. These were not well visualiz ed on the prior low-dose lung screening due to body habitus and the low-dose technique. LEFT suprahil ar lymph nodes partially encase the pulmonary artery. The largest lymph node measures 2.3 x 3.1 cm. T here are additional LEFT hilar lymph nodes and smaller RIGHT hilar lymph nodes. Vessels: Atherosclerosis aorta. Pulmonary artery size is normal. Chest wall and lower neck: No soft tissue masses. Upper abdomen: Hepatic steatosis. Splenic granulomata. No adrenal mass. Osseous structures: No destructive process. IMPRESSION: 1. No change in the small nodules and tubular opacification in the LEFT upper lobe. This will need lo ng-term additional imaging follow-up. 2. Evident on the postcontrast chest CT examination are enlarged LEFT hilar lymph nodes. The largest lymph node is 2.3 x 3.1 cm. These lymph nodes will need to be further evaluated. These may be metasta tic lymph nodes or lymphoma. Recommend evaluation by pulmonology and PET/CT imaging.
== END 2023-06-13 08:39 | disposition home or self-care (01) ==
PROVIDERS: PCP Registered Nurse; Visit Provider Registered Nurse
DX: R91.1 Solitary pulmonary nodule (principal); R91.8 Other nonspecific abnormal finding of lung field
CPT/HCPCS: 71260; 94060; 94618; 94726; 94729

== ENCOUNTER → 2023-06-16 10:02 | Outpatient (BNVA) | payer MEDICARE, SELFPAY | PROVIDERS: PCP Registered Nurse; Visit Provider Nurse Practitioner Family | DX: I25.10 Atherosclerotic heart disease of native coronary artery without angina pectoris (principal); R00.1 Bradycardia, unspecified; I10 Essential (primary) hypertension; I45.2 Bifascicular block; Z87.891 Personal history of nicotine dependence | CPT/HCPCS: 36415; 80048; 85025; 93005; 99214 ==

== ENCOUNTER → 2023-07-18 13:43 | Outpatient (BNVA) | payer MEDICARE, SELFPAY | PROVIDERS: PCP Registered Nurse; Visit Provider Internal Medicine Pulmonary Disease | DX: J44.9 Chronic obstructive pulmonary disease, unspecified (principal); Z87.891 Personal history of nicotine dependence; R91.1 Solitary pulmonary nodule; G47.33 Obstructive sleep apnea (adult) (pediatric); R59.9 Enlarged lymph nodes, unspecified; Z95.5 Presence of coronary angioplasty implant and graft | CPT/HCPCS: 99214 ==

== ENCOUNTER 2023-07-25 11:26 | Outpatient (CLI) | payer MEDICARE, SELFPAY ==
--- NOTE | 2023-07-25 | PETR_ITS ---
PROCEDURE INFORMATION: Exam: PET/CT Skull Base to Mid-thigh Exam date and time: 07/25/2023 12:47 PM Age: 68 years old Clinical indication: Abnormal findings; Pulmonary nodule LABS AND CLINICAL REPORTS: Glucose: 104 mg/dl Treatment strategy for malignancy (PET staging): Initial Staging (PI) TECHNIQUE: Imaging protocol: Following at least four-hour fasting and following the injection of radiopharmaceutical, low dose CT images were obtained. Then, PET images were obtained. Attenuation corrected images were constructed using the CT scan. Fused images of PET and CT were reviewed. The standardized uptake values (SUV) reported below are maximum values within a region of interest, expressed in gm/ml. Exam includes orbital meatal line to mid-thigh. Radiopharmaceutical: 12.77 mCi F-18 FDG (Fluorodeoxyglucose), IV. Time of imaging post radiopharmaceutical administration: 1 hour Injection site: Right antecubital COMPARISON: CT abdomen pelvis w con* [id number] 05/05/2021 11:38 AM FINDINGS: Brain: Visualized brain has normal physiologic uptake. Pharynx: No abnormal uptake. Larynx: No abnormal uptake. Lungs, pleura and trachea: Redemonstrated left perihilar mass measuring 4.6 x 2.1 cm which is FDG avid with a max SUV measurements of 16.5. Heart: Normal physiologic uptake. Mediastinal space: No abnormal uptake. Liver: No abnormal uptake. Gallbladder and bile ducts: No abnormal uptake. Pancreas: No abnormal uptake. Spleen: No abnormal uptake. Adrenal glands: No abnormal uptake. Kidneys and ureters: Normal physiologic uptake. Cluster of nonobstructing stones noted in the upper pole the left kidney measuring up to 3 mm in size. Stomach and bowel: No abnormal uptake. Vasculature: No abnormal uptake. Lymph nodes: There is an abnormal lobulated, enlarged AP window lymph node adjacent to the left perihilar mass measuring 3.8 x 2.5 cm series 3, image 74. The lymph node is FDG avid with a max SUV of 19.8. No additional FDG avid nodes. Bones/joints: There is focal uptake within the medial aspect of the right hip in the intertrochanteric region with an SUV max of 3.7. There is no evident lytic or sclerotic bone lesion in this location. Soft tissues: No abnormal uptake in the visualized head, neck, chest, abdomen, pelvis, and extremities. PET/PET skulltothi INITIAL [id number] IMPRESSION: 1. FDG avid left perihilar pulmonary mass consistent with malignancy measuring 4.6 x 2.1 cm. Metastatic adenopathy to an adjacent FDG avid AP window lymph node measuring 3.8 x 2.5 cm. 2. Focal moderate FDG uptake within the medial aspect of the right hip without an evident lytic or sclerotic bone lesion in this location on corresponding CT images. This could reflect early osseous metastasis. Attention on any follow-up examination is recommended.
== END 2023-07-25 11:27 | disposition home or self-care (01) ==
LOC: RAD 11:27
PROVIDERS: PCP Registered Nurse; Visit Provider Registered Nurse
DX: C34.92 Malignant neoplasm of unspecified part of left bronchus or lung (principal); R91.1 Solitary pulmonary nodule; C77.9 Secondary and unspecified malignant neoplasm of lymph node, unspecified; R59.9 Enlarged lymph nodes, unspecified
CPT/HCPCS: 78815; A9552

== ENCOUNTER → 2023-07-26 14:29 | Outpatient (BNVA) | payer MEDICARE, SELFPAY | PROVIDERS: PCP Registered Nurse; Visit Provider Podiatrist Foot & Ankle Surgery | DX: L60.3 Nail dystrophy (principal); I73.9 Peripheral vascular disease, unspecified; E11.40 Type 2 diabetes mellitus with diabetic neuropathy, unspecified | CPT/HCPCS: 11721 ==

== ENCOUNTER 2023-08-01 05:27 | Day surgery (SDC) | payer MEDICARE, SELFPAY ==
[2023-08-01] VITALS (9 sets, daily range): BP systolic 148–212; BP diastolic 72–103; PULSE 62–95; RESP 16–20; TEMP 36.1–37; O2SAT 92–99; BMI 46.6
--- NOTE | 2023-08-01 05:53 | CT_ITS ---
WS: [id number] CT CHEST, ION PROTOCOL. HISTORY: for biopsies Technique: All CT scans at [facility] use at least one of these dose optimization techniques: automated exposure control; mA and/or kV adjustment per patient size (includes targeted exams where dose is matched to clinical indication); or iterative reconstruction. Chest CT purposes for navigatio nal bronchoscopy. DLP: 822.40 mGy COMPARISON: 06/13/2023 PET/CT positive lymph nodes are reidentified at the hilum and extending along the aorta. Cluster of l ymph nodes is positive by PET/CT. Chronic emphysema. Heart size is normal. There are a few small bilateral axillary lymph nodes also. IMPRESSION: Preprocedure imaging for navigational bronchoscopy guidance.
--- NOTE | 2023-08-01 06:08 | ECG_ITS ---
[facility] Test Date: 2023-08-01 Pat Name: Janet Pillai Department: Room: Gender: Female Clinical Assessment Manager: : 1955 Requested By: Carol Miller Order Number: [id number] Huitron MD: Thiago Rodriguez M.D. Measurements Intervals [place] Rate: 75 P: 251 [place]: 118 QRS: -53 QRSD: 173 T: 10 QT: 455 QTc: 511 Interpretive Statements POSSIBLE SINUS RHYTHM RIGHT BUNDLE BRANCH BLOCK [120+ ms QRS DURATION, UPRIGHT V1, 40+ ms S IN I/aVL/V4/V5/V6] LEFT ANTERIOR FASCICULAR BLOCK [QRS AXIS <= -45, QR IN I, RS IN II] MINIMAL VOLTAGE CRITERIA FOR LVH, CONSIDER NORMAL VARIANT [MEETS CRITERIA IN ONE OF: R(aVL), S(V1), R(V5), R(V5/V6)+S(V1)] Electronically Signed On 08-01-2023 9:57:20 YEAST CULTURE DEVELOPER by Thiago Rodriguez M.D. [id number]
[2023-08-01] MEDS: ipratropium-albuterol 3 mL Neb INHALATION (06:20)
[2023-08-01] MEDS: sodium chloride 0.9% 1,000 ML 30 ML IV (06:20)
[2023-08-01 06:38] LABS: Glucose Point of Care 127 mg/dL (70-110)
--- NOTE | 2023-08-01 06:39 | P.ANESASSM_ITS ---
Pre-Anesthetic Assessment Height/Weight: Height 1.73 m Weight 139.253 kg Temp Pulse Resp BP Pulse Ox O2 Del Method 98.6 F 62 20 H 192/72 99 Room Air 08/01/23 06:15 08/01/23 06:15 08/01/23 06:15 08/01/23 06:15 08/01/23 06:15 08/01/23 06:15 Operation Date: 08/01/23 07:00 Proposed Procedures p ION/EBUS, 67610, 70040, 68525, 85855, 26895, 10285, 29301, 38290, 57656, 84153, 44265, 18831, 93150, 39062, R91.1(Not Applicable) - Solitario Hurst MD s Ebus(Not Applicable) - Solitario LozoyarMD Familial anesthetic complications: None Was Beta Radha taken within 24 hours: N/A Was Clonidine taken within 24 hours: N/A Last intake: Intake Last Liquid Date 07/31/23 Last Liquid Time 19:00 Last Solid Date 07/31/23 Last Solid Time 18:00 Social No alcohol and No tobacco Exam alert, oriented x 3, clear to auscultation bilaterally and regular rate & rhythm Airway Mallampati: Class III Dentition: full Pulmonary Chronic Obstructive Pulmonary Disease and Sleep Apnea CV/HEM Coronary Artery Disease (2 stents, last one 1996, negative stress test 2020) Cardiac event monitor 07/19 [facility] Event monitor: 1. Monitoring period was from 06/16/2023 till 06/29/2023. 2. Baseline heart rhythm was sinus bradycardia with heart rate of 41 bpm. 3. Average heart rate was 76 bpm. Maximum heart rate was 144 bpm and patient was in sinus tachycardia at that time. This was recorded on 06/29/2023 at 3:15 PM. Minimum heart rate was 40 bpm. Patient had sinus bradycardia. This was recorded at 11:17 AM on 06/16/2023. 2% ventricular ectopic beats. 7% supraventricular ectopic beats. 4. No atrial fibrillation or arrhythmias seen. 5. No pauses seen 6. No patient reported symptoms echo 09/15 CONCLUSIONS The study is suboptimal secondary to the patient's body habitus. She was unable to cooperate because of severe shortness of breath. Left ventricular size is essentially normal. The left ventricular function is lower limit of normal. No wall motion disturbances. Ejection fraction about 50 to 55%. Grade 1 diastolic dysfunction. Mildly increased right atrial size. Mildly increased left atrial size. Structurally normal mitral valve. Mild mitral valve regurgitation. GI Gastroesophageal Reflux Disease Metabolic Diabetes Mellitus and Morbid Obesity Anesthetic Plan ASA status: 3 Anesthesia: General Risk of > 500 ml blood loss (7ml/kg in children): No Medications/Allergies Home Medications Medication Instructions Recorded Confirmed Last Taken Type aspirin 81 mg tablet,delayed 81 mg PO QAM 06/21/19 08/01/23 07/31/23 History release cetirizine 10 mg tablet 10 mg PO QAM 06/21/19 08/01/23 07/31/23 History Diabetic Shoes #1 ea 03/17/21 08/01/23 Unknown Rx albuterol sulfate 2.5 mg/3 mL 2.5 mg (3 mL) inhalation Q4H PRN 05/25/21 08/01/23 1 Month Ago Rx (0.083 %) solution for nebulization bronchospasm 30 days #180 mL ~07/01/23 blood sugar diagnostic #100 ea 01/03/22 08/01/23 Unknown Rx lancets (Accu-Chek Softclix #200 ea 01/03/22 08/01/23 Unknown Rx Lancets) nitroglycerin 0.4 mg sublingual 0.4 mg sublingual Q5M PRN chest 02/24/22 08/01/23 1 Year Ago Rx tablet pain #25 tabs ~08/01/22 tart ann 1 tab PO DAILY 02/24/22 08/01/23 07/31/23 History Diabetic Shoes and 3 inserts #1 ea 12/28/22 08/01/23 Unknown Rx pen needle, diabetic 32 gauge x #100 ea 05/16/23 08/01/23 Unknown Rx 5/16 (Comfort EZ Pen [place]) albuterol sulfate 90 mcg/actuation 2 puff inhalation Q6H PRN 05/17/23 08/01/23 1 Month Ago History aerosol inhaler Shortness Of Breath ~07/01/23 hydroxychloroquine 200 mg tablet 200 mg PO BID #180 tabs 05/23/23 08/01/23 07/31/23 Rx furosemide 20 mg tablet (Lasix) 20 mg PO DAILY 06/16/23 08/01/23 07/31/23 History hydralazine 50 mg tablet 100 mg PO BID 06/16/23 08/01/23 07/31/23 History tiotropium bromide 18 mcg capsule 1 cap inhalation DAILY #180 07/18/23 08/01/23 08/01/23 04:00 Rx with inhalation device (Spiriva inhalations with HandiHaler) amlodipine 10 mg tablet 10 mg PO QPM 07/28/23 08/01/23 07/31/23 History cholecalciferol (vitamin D3) 1,250 1,250 mcg PO .WEEKLY 07/28/23 08/01/23 07/26/23 History mcg (50,000 unit) capsule dexlansoprazole 60 mg 60 mg PO DAILY 07/28/23 08/01/23 07/31/23 History capsule,biphase delayed release (Dexilant) losartan 100 1 tab PO DAILY 07/28/23 08/01/23 07/31/23 History mg-hydrochlorothiazide 25 mg tablet paroxetine HCl 20 mg tablet 20 mg PO DAILY 07/28/23 08/01/23 07/31/23 History simvastatin 40 mg tablet 40 mg PO DAILY 07/28/23 08/01/23 07/31/23 History Allergies Allergy/AdvReac Type Severity Reaction Status Date / Time Sulfa (Sulfonamide Allergy Unknown Verified 07/28/23 09:31 Antibiotics) sulfamethoxazole Allergy itching Verified 07/28/23 09:31 [From Bactrim] trimethoprim [From Bactrim] Allergy itching Verified 07/28/23 09:31 [facility] Anesthesia Medical History Mixed connective tissue disease Advanced directives, counseling/discussion Former heavy cigarette smoker (20-39 per day) Quit in 2009 Aortic insufficiency dx 10/14/02 Dr Kam Martinez Arthralgia of both knees Venous insufficiency of both lower extremities Opioid contract exists Personal history of nicotine dependence Quit 2009 History of prior cigarette smoking Obesity Hypothyroidism (acquired) Chronic joint pain Anxiety and depression Hyperlipidemia Common migraine with intractable migraine Left Achilles tendinitis Back pain, lumbosacral Type 2 diabetes mellitus Essential hypertension COPD (chronic obstructive pulmonary disease) Gastroesophageal reflux disease without esophagitis Surgical History Stented coronary artery 2 stents done 02/16/96 in [place] History of knee replacement 2009 History of delivery Family History Other CAD (coronary artery disease) Cancer Diabetes Denies family history of Rheumatoid arthritis Lupus Hyperlipidemia Chronic kidney disease (CKD) Hypertension Stroke Social History Smoking and tobacco/nicotine status: former use of tobacco/nicotine Quit status (tobacco/nicotine): has quit using Year quit tobacco: 2009 Former quit date comment: 3 ppd X 37 years Alcohol intake: never Substance/Drug Use: never Lives independently: No Household members: spouse Marital status: Current occupational status: unemployed Do you think of yourself as: Straight/Heterosexual Current gender identity: Female Data Anesthesia 08/01/23 06:29 Cardiac Studies: 2 Echocardiogram 09/01/22 Echocardiogram Ultrasound 11/18/20 Sestamibi Stress Test (Cardiology) 01/12 Cardiac Event Monitor 06/16/23
--- NOTE | 2023-08-01 06:48 | ECG_ITS ---
[facility] Test Date: 2023-08-01 Pat Name: Janet Pillai Department: Room: Gender: Female Supervising Nurse: : 1955 Requested By: Carol Miller Order Number: [id number] Huitron MD: Thiago Rodriguez M.D. Measurements Intervals [place] Rate: 79 P: 264 [place]: 145 QRS: -57 QRSD: 170 T: 31 QT: 436 QTc: 501 Interpretive Statements ECTOPIC ATRIAL RHYTHM RIGHT BUNDLE BRANCH BLOCK [120+ ms QRS DURATION, UPRIGHT V1, 40+ ms S IN I/aVL/V4/V5/V6] LEFT ANTERIOR FASCICULAR BLOCK [QRS AXIS <= -45, QR IN I, RS IN II] POSSIBLE LEFT VENTRICULAR HYPERTROPHY [VOLTAGE CRITERIA PLUS LAE OR QRS WIDENING] Compared to ECG 08/01/2023 06:24:30 Ectopic atrial rhythm now present Junctional rhythm no longer present Electronically Signed On 08-01-2023 9:56:45 ENTRY LEVEL ACCOUNTANT by Thiago Rodriguez M.D. [id number]
[2023-08-01 06:50] LABS: Anion Gap 15.4 (5-19); Blood Urea Nitrogen 22 mg/dL (8-23); Calcium 8.9 mg/dL (8.5-10.5); Carbon Dioxide 29 mmol/L (22-29); Chloride 97 mmol/L (98-107); Creatinine Clr Calc Pharmacy 74.6868; Glomerular Filtration Rate 49.7 mL/min (90-130); Glucose 136 mg/dL (65-115); Osmolality Calculated 291 mOsm/kg (285-295); Potassium 3.4 mmol/L (3.5-5.1); Sodium 138 mmol/L (136-145)
--- NOTE | 2023-08-01 07:29 | W.PM.OPSUD ---
Surgery/Procedure H&P Update DATE OF PROCEDURE: August 01, 2023 DATE H&P PERFORMED: 07/18/23 H&P UPDATE INFORMATION: I have reviewed H&P completed within last 30 days, I have examined patient prior to procedure and Changes to prior documentation as noted here CHANGES TO PREVIOUS DOCUMENTATION: PET/CT 07/25/2023 showed 1. FDG avid left perihilar pulmonary mass consistent with malignancy measuring 4.6 x 2.1 cm. Metastatic adenopathy to an adjacent FDG avid AP window lymph node measuring 3.8 x 2.5 cm. 2. Focal moderate FDG uptake within the medial aspect of the right hip without an evident lytic or sclerotic bone lesion in this location on corresponding CT images. This could reflect early osseous metastasis. Attention on any follow-up examination is recommended. PREOP DIAGNOSIS: Suspected lung malignancy PRIMARY INDICATION FOR PROCEDURE: To rule out malignancy PLANNED PROCEDURE: Operation Date: 08/01/23 07:00 Proposed Procedures p ION/EBUS, 90716, 96834, 12632, 54631, 81155, 93103, 60300, 82298, 01967, 18958, 41384, 27563, 95371, 31208, R91.1(Not Applicable) - Solitario Hurst MD s Ebus(Not Applicable) - Solitario Hurst MD
[2023-08-01] MEDS: EPINEPHrine 1 mg/mL INJ XX (08:49)
--- NOTE | 2023-08-01 08:58 | P.OP_ITS ---
Operative Report Date of procedure: August 01, 2023 Pre-op diagnosis: Suspected malignancy Post-op diagnosis: Same Procedure done: Dx Bronchoscope w/BAL Bronchoscopy w/ therapeutic aspiration of the tracheobronchial tree (clearance of airway secretions, removal of mucus plugs) EBUS Sampling >=2 nodes Surgeon: Solitario Hurst MD Brief History: Ms. Janet Pillai is a 68 year old female with PMH of left lung nodule, CAD, Hepatomegaly, aortic insufficiency, GERD, Morbid obesity, Type 2 DM, HTN, referred for COPD initially referred by her primary care physician for left upper lobe nodule. Patient had extensive smoking history-she was a former smoker with hx of 3 ppd X 37 years, quit in 2009. She underwent LDCT 05/05/23: there is evidence of emphysema; New, nodular and tubular opacifications in the LEFT upper lobe. New since 04/14/2021. May be endobronchial secretions or pneumonia or early neoplasm. Recommend follow-up chest CT with IV contrast which was performed 06/13/23: Which showed no change in the small nodules and tubular opacification in the LEFT upper lobe. This will need long-term additional imaging follow-up. Evident on the postcontrast chest CT examination are enlarged LEFT hilar lymph nodes. The largest lymph node is 2.3 x 3.1 cm. These lymph nodes will need to be further evaluated. These may be metastatic lymph nodes or lymphoma. She had a PET/CT 07/25/2023: Which showed FDG avid left perihilar pulmonary mass consistent with malignancy measuring 4.6 x 2.1 cm. Metastatic adenopathy to an adjacent FDG avid AP window lymph node measuring 3.8 x 2.5 cm with SUV 19.8. Focal moderate FDG uptake within the medial aspect of the right hip without an evident lytic or sclerotic bone lesion in this location on corresponding CT images. This could reflect early osseous metastasis. Upon review of CT chest and PET/CT-it appeared the left perihilar mass is embedded within the vasculature and may require navigational bronchoscopy to avoid vasculature. Today patient is scheduled for navigational bronchoscopy guided biopsies as well as endobronchial ultrasound-guided biopsy if possible. Procedure: Dx Bronchoscope w/BAL Bronchoscopy w/ therapeutic aspiration of the tracheobronchial tree (clearance of airway secretions, removal of mucus plugs) EBUS Sampling >=2 nodes Indication: PET/CT 07/25/2023: PET avid left perihilar pulmonary mass encircling pulmonary artery and aorta Anesthesia: General anesthesia. Description of the procedure: The procedure was explained to the patient and the consent was obtained. The patient was brought to the OR. The patient underwent induction for general anesthesia and endotracheal tube was placed. The bronchoscope was advanced through the ET tube. The distal trachea was visualized. There were copious amount of thick mucus secretions which were suctioned right away. Tracheal mucosa appeared normal, no endotracheal lesion was seen. The daniel was sharp. In a systematic manner bilateral bronchial tree was then examined. The bronchoscope was then introduced into the right mainstem bronchus. The right upper lobe, bronchus intermedius, right middle lobe, right lower lobe subsegments were examined up to the third subsegmental level and no abnormalities were identified. There were mucoid secretions which were suctione d right away. There are no endobronchial lesions. The bronchoscope was advanced into the left mainstem bronchus. There is a endobronchial lesion in distal left mainstem bronchus noted. The left upper lobe, and lingula were examined up to the third subsegmental level and no abnormalities were identified. There were clear secretions which were suctioned right away. When the bronchoscope was passed through left upper lobe subsegments there was significant bleeding, as the mucosa was very friable, obscuring the view. After instillation of cold saline did not notice any definite endobronchial lesion. Bronchoscope was retracted and Endobronchial Ultrasound (EBUS) was introduced. Identified a large hypoechoic mass in 11 L, station 7, As with EBUS-we had a good view of station 7 and 11 L lymph nodes with no vasculature in the path-we aborted to do navigational bronchoscopy biopsy and proceeded with endobronchial ultrasound biopsies. Using [id number] were taken from all the stations; there was evidence of bleeding which is controlled with instillation of cold saline and diluted epinephrine. EBUS was retracted and flexible bronchoscopy was introduced and after making sure there is no active bleeding, bronchoscope retracted and procedure terminated. Samples: 1. Bronchoalveolar lavage was performed after wedging the bronchoscope at the entrance of apical segment of left upper lobe. 30 mL of saline was instilled, fluid return was 10 mL. Bronchoalveolar lavage specimen was sent for cell count and differential, gram stain and culture, cytology B. EBUS guided Fine-needle aspiration biopsies were taken from station 7, station 11 L. 1. Total of 5 passes were made using needle aspiration([id number]) from station 7; all the material was placed in formalin and sent for histopathology 2. Total of 3 passes were made using needle aspiration([id number]) from station 11 L; all the material was placed in formalin and sent for histopathology Complications: None.The patient was extubated and brought to the PACU in stable condition. Disposition: Patient can be discharged home in stable condition. Pt and her are aware that I am going to call them to update final biopsy results once available.
--- NOTE | 2023-08-01 09:02 | XR_ITS ---
WS: [id number] XR chest 1V portable [id number] REASON FOR EXAM: post bronch FINDINGS: Mild tortuosity of the thoracic aorta. The heart size is at the upper limits of normal. Calcified granulomas disease in both hemithoraces. Left hilar mass previously demonstrated on CT scan of 06/13/2023. There is no left pneumothorax or findings of significant hemorrhage in the left lung. IMPRESSION: Stable abnormal chest without acute abnormality.
[2023-08-01 09:07] LABS: Cyto Order Verification Order Verified
[2023-08-01 09:14] LABS: Apprearance, Bronch Wash Bloody (CLEAR); Bronch Source Left Upper Lobe; Color, Bronc Wash Red
[2023-08-01 11:52] LABS: PATH Referral Yes; Total Cells Counted Bronch 200
== END 2023-08-01 10:09 | disposition home or self-care (01) ==
PROVIDERS: Anesthesiology; PCP Registered Nurse; Visit Provider Internal Medicine Pulmonary Disease
PROC: BB4BZZZ Ultrasonography of Pleura (ICD-10-PCS; 2023-08-01 07:00)
DX: R91.8 Other nonspecific abnormal finding of lung field (principal); C96.9 Malignant neoplasm of lymphoid, hematopoietic and related tissue, unspecified; I25.10 Atherosclerotic heart disease of native coronary artery without angina pectoris; R16.0 Hepatomegaly, not elsewhere classified; K21.9 Gastro-esophageal reflux disease without esophagitis; E66.01 Morbid (severe) obesity due to excess calories; Z68.42 Body mass index [BMI] 45.0-49.9, adult; E11.9 Type 2 diabetes mellitus without complications; I10 Essential (primary) hypertension; J44.9 Chronic obstructive pulmonary disease, unspecified; Z87.891 Personal history of nicotine dependence; Z95.5 Presence of coronary angioplasty implant and graft; Z79.82 Long term (current) use of aspirin; E78.5 Hyperlipidemia, unspecified
CPT/HCPCS: 31624; 31645; 31652; 36415; 36416; 71045; 71250; 80048; 80503; 82962; 87070; 87205; 88112; 88305; 88342; 89050; 93005; 94640; J0171; J0330; J1100; J2371; J2405; J2704; J2710; J3010; J3490; J7030

== ENCOUNTER → 2023-08-25 09:17 | Outpatient (BNVA) | payer MEDICARE, SELFPAY | PROVIDERS: PCP Registered Nurse; Visit Provider Registered Nurse | DX: E11.9 Type 2 diabetes mellitus without complications (principal); E13.29 Other specified diabetes mellitus with other diabetic kidney complication; N28.9 Disorder of kidney and ureter, unspecified | CPT/HCPCS: 83036 ==

== ENCOUNTER 2023-09-04 11:38 | Outpatient (CLI) | payer MEDICARE, SELFPAY ==
--- NOTE | 2023-09-04 13:00 | MR_ITS ---
WS: [id number] EXAMINATION: MR hip RT wo/w con [id number] ORDER DATE: 09/04/2023 12:26 PM COMPARISON: PET/CT 07/25/2023 HISTORY: small cell carcinoma, right hip pain CONTRAST: None. TECHNIQUE: Coronal STIR of the Pelvis. Coronal proton density, coronal T1, axial T2 fat sat, axial T1 , sagittal T2 fat sat, and sagittal T1 performed of the hip. After contrast, axial T1 fat sat, coron al T1 fat sat, and sagittal T1 fat sat were performed. FINDINGS: Enhancing T2 hyperintense lesion involving the RIGHT intratrochanteric femur corresponding to the PET /CT findings. Lesion measures approximately 2.6 x 2.4 cm most compatible with metastatic disease. LEFT femur is normal in appearance. No significant joint effusions. Proximal femurs are otherwise nor mal in appearance. Normal bone marrow signal in the pelvis and sacrum. Partially evaluated fibroid uterus with multiple suspected fibroids measuring up to 3.4 cm. This coul d further evaluated with ultrasound. IMPRESSION: 1. 2.6 x 2.4 cm metastatic lesion intratrochanteric RIGHT hip corresponding to the PET/CT findings. 2. No other visualized metastatic lesions. 3. Fibroid uterus. This can be followed up with ultrasound.
[2023-09-04] MEDS: gadobenate dimeglumine 20 mL vial IV (13:36)
== END 2023-09-04 11:39 | disposition home or self-care (01) ==
LOC: RAD 11:38
PROVIDERS: PCP Registered Nurse; Visit Provider Internal Medicine
DX: C34.92 Malignant neoplasm of unspecified part of left bronchus or lung (principal); C79.51 Secondary malignant neoplasm of bone; D25.9 Leiomyoma of uterus, unspecified
CPT/HCPCS: 73723; 99205; A9577

== ENCOUNTER 2023-09-07 10:30 | Day surgery (SDC) | payer MEDICARE, SELFPAY ==
[2023-09-07] VITALS (7 sets, daily range): BP systolic 139–185; BP diastolic 65–105; PULSE 66–104; RESP 16–18; TEMP 36.1–36.7; O2SAT 94–97
--- NOTE | 2023-09-07 11:37 | ANES.PREANE2 ---
Pre-Anesthetic Assessment Height/Weight: Height 1.73 m Weight 141 g Temp Pulse Resp BP Pulse Ox 97.7 F 66 18 185/105 97 09/07/23 11:27 09/07/23 11:27 09/07/23 11:27 09/07/23 11:27 09/07/23 11:27 Operation Date: 09/07/23 13:05 Proposed Procedures p [id number] port placement C80.1(Not Applicable) - Royal Kerr MD Familial anesthetic complications: None Was Beta Radha taken within 24 hours: N/A Was Clonidine taken within 24 hours: N/A Last intake: > 8hrs Social No alcohol and No tobacco Exam alert, oriented x 3, clear to auscultation bilaterally and regular rate & rhythm Airway Mallampati: Class IV Dentition: other (poor dentition) Comments: Comments: large neck circumference Pulmonary Chronic Obstructive Pulmonary Disease and Sleep Apnea NSLC CV/HEM Coronary Artery Disease (2 stents, last one 1996, negative stress test in 2020) and Hypertension Metabolic Diabetes Mellitus and Morbid Obesity Anesthetic Plan ASA status: 3 Anesthesia: MAC Risk of > 500 ml blood loss (7ml/kg in children): No Medications/Allergies Home Medications Medication Instructions Recorded Confirmed Last Taken Type aspirin 81 mg tablet,delayed 81 mg PO QAM 06/21/19 09/06/23 09/06/23 History release cetirizine 10 mg tablet 10 mg PO QAM 06/21/19 09/06/23 09/06/23 History Diabetic Shoes #1 ea 03/17/21 09/05/23 Unknown Rx albuterol sulfate 2.5 mg/3 mL 2.5 mg (3 mL) inhalation Q4H PRN 05/25/21 09/07/23 08/17/23 Rx (0.083 %) solution for nebulization bronchospasm 30 days #180 mL blood sugar diagnostic #100 ea 01/03/22 09/05/23 Unknown Rx lancets (Accu-Chek Softclix #200 ea 01/03/22 09/05/23 Unknown Rx Lancets) nitroglycerin 0.4 mg sublingual 0.4 mg sublingual Q5M PRN chest 02/24/22 09/06/23 1 Year Ago Rx tablet pain #25 tabs ~08/01/22 tart ann 1 tab PO DAILY 02/24/22 09/05/23 09/06/23 History Diabetic Shoes and 3 inserts #1 ea 12/28/22 09/05/23 Unknown Rx pen needle, diabetic 32 gauge x #100 ea 05/16/23 09/05/23 Unknown Rx / (Comfort EZ Pen [place]) albuterol sulfate 90 mcg/actuation 2 puff inhalation Q6H PRN 05/17/23 09/07/23 09/06/23 History aerosol inhaler Shortness Of Breath hydroxychloroquine 200 mg tablet 200 mg PO BID #180 tabs 05/23/23 09/06/23 09/06/23 Rx furosemide 20 mg tablet (Lasix) 20 mg PO DAILY 06/16/23 09/06/23 09/06/23 History hydralazine 50 mg tablet 50 mg PO BID 06/16/23 09/06/23 09/06/23 History tiotropium bromide 18 mcg capsule 1 cap inhalation DAILY #180 07/18/23 09/06/23 09/06/23 Rx with inhalation device (Spiriva inhalations with HandiHaler) amlodipine 10 mg tablet 10 mg PO QPM 07/28/23 09/06/23 09/05/23 History cholecalciferol (vitamin D3) 1,250 1,250 mcg PO .WEEKLY 07/28/23 09/06/23 09/06/23 History mcg (50,000 unit) capsule dexlansoprazole 60 mg See Rx Instructions .Route 08/22/23 09/07/23 09/06/23 Rx capsule,biphase delayed release .COMPLEX #90 caps (Dexilant) beet root 2400mg PO DAILY 08/24/23 09/05/23 Unknown History red yeast rice 600 mg capsule 1,200 mg PO DAILY 08/24/23 09/06/23 09/06/23 History pulverizer PO TID 08/24/23 09/05/23 08/25/23 History losartan 100 1 tab PO DAILY #90 tabs 09/05/23 09/06/23 09/06/23 Rx mg-hydrochlorothiazide 25 mg tablet ondansetron HCl 8 mg tablet 8 mg PO Q8H PRN nausea and 09/05/23 09/06/23 Unknown Rx vomiting #30 tabs prochlorperazine maleate 5 mg 5 mg PO Q6H PRN nausea #30 tabs 09/05/23 09/06/23 Unknown Rx tablet (Compazine) duloxetine 20 mg capsule,delayed 20 mg PO BEDTIME 09/06/23 09/06/23 09/06/23 History release Allergies Allergy/AdvReac Type Severity Reaction Status Date / Time Sulfa (Sulfonamide Allergy Unknown Verified 09/05/23 09:32 Antibiotics) sulfamethoxazole Allergy itching Verified 09/05/23 09:32 [From Bactrim] trimethoprim [From Bactrim] Allergy itching Verified 09/05/23 09:32 [facility] Anesthesia Medical History (Updated 09/05/23 @ 16:52 by Filiberto Telles MD) 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 Mixed connective tissue disease Advanced directives, counseling/discussion Former heavy cigarette smoker (20-39 per day) Quit in 2009 Aortic insufficiency dx 10/14/02 Dr Kam Martinez Arthralgia of both knees Venous insufficiency of both lower extremities Opioid contract exists Personal history of nicotine dependence Quit 2009 History of prior cigarette smoking Obesity Hypothyroidism (acquired) Chronic joint pain Anxiety and depression Hyperlipidemia Common migraine with intractable migraine Left Achilles tendinitis Back pain, lumbosacral Type 2 diabetes mellitus Essential hypertension COPD (chronic obstructive pulmonary disease) Gastroesophageal reflux disease without esophagitis Surgical History Stented coronary artery 2 stents done 02/16/96 in [place] History of knee replacement 2009 History of delivery Family History Other CAD (coronary artery disease) Cancer Diabetes Denies family history of Rheumatoid arthritis Lupus Hyperlipidemia Chronic kidney disease (CKD) Hypertension Stroke Social History Smoking and tobacco/nicotine status: former use of tobacco/nicotine Quit status (tobacco/nicotine): has quit using Year quit tobacco: 2009 Former quit date comment: 3 ppd X 37 years Alcohol intake: never Substance/Drug Use: never Lives independently: No Household members: spouse Marital status: Current occupational status: unemployed Do you think of yourself as: Straight/Heterosexual Current gender identity: Female Data Anesthesia Cardiac Studies: Echocardiogram 09/01/22 Echocardiogram Ultrasound 11/18/20 Sestamibi Stress Test (Cardiology) 01/12/21 Cardiac Event Monitor 06/16/23
[2023-09-07 11:59] LABS: Glucose Point of Care 109 mg/dL (70-110)
[2023-09-07] MEDS: sodium chloride 0.9% 1,000 ML 30 ML IV (12:10)
--- NOTE | 2023-09-07 12:29 | SC_ITS ---
WS: [id number] INTRAOPERATIVE TECHNIQUE: 2 Spot fluoroscopic images for intraoperative purposes. FLUOROSCOPY TIME: 7.7 seconds CLINICAL INFORMATION: intra-op FINDINGS: RIGHT Port-A-Cath with tip in the distal SVC. No visualized pneumothorax. IMPRESSION: Images obtained for intraoperative purposes.
--- NOTE | 2023-09-07 13:27 | W.PM.OPSUD ---
Surgery/Procedure H&P Update DATE OF PROCEDURE: September 07, 2023 DATE H&P PERFORMED: 09/04/23 H&P UPDATE INFORMATION: I have reviewed H&P completed within last 30 days, I have examined patient prior to procedure, H&P to be scanned into chart and H&P is in [facility] [place] on date indicated PLANNED PROCEDURE: Operation Date: 09/07/23 13:05 Proposed Procedures p [id number] port placement C80.1(Not Applicable) - Royal Kerr MD
[2023-09-07] MEDS: ceFAZolin 3,000 MG in sodium chloride 0.9% (plus) 100 ML 200 MG IV (13:37)
[2023-09-07] MEDS: lidocaine-epi 2% PF 1:200,000 20 mL SDV XX (14:09)
[2023-09-07] MEDS: heparin, porcine 1,000 unit/mL INJ 10 mL 10000 UNIT IRRIGATION (14:10)
--- NOTE | 2023-09-07 14:35 | PM.OP ---
Operative Report Date of procedure: September 07, 2023 Pre-op diagnosis: Lung cancer Post-op diagnosis: Same Post-op findings: Normal vascular anatomy Procedure done: Insertion of right IJ Port-A-Cath Implants: Bard Port-A-Cath Surgeon: Royal Kerr MD Documentation Analyst: JENNIE OR Staff Estimated blood loss: 10 Complications: none Brief History: 68-year-old female with history of lung cancer who has been referred to my clinic for evaluation for Port-A-Cath placement to initiate chemotherapy. After discussion we will resume benefits as documented in my preop note we decided to proceed. Procedure: Patient was brought into the OR, she was placed in a supine position, mother anesthesia sedation was given. Timeout was conducted after the skin was prepped and draped in the usual sterile fashion. I then proceeded to identify the right IJ vein with ultrasound, I infiltrated local anesthesia on top of the vein. I then proceeded to cannulate the vein under direct ultrasound guidance using an 18-gauge needle, the needle tip was seen entering the vein and immediate return of blood was noted. A wire was advanced through the needle and the needle was removed. The position of the wire was verified with ultrasound and fluoroscopy. The wire was then fixed to the drapes. I then placed my attention to the chest, local anesthesia was infiltrated in the previously marked area on the chest and then a tract connecting the chest to the wire insertion site in the neck. I then proceeded to make a 3.5 cm incision in the right upper chest, the incision was deepened to subcutaneous tissue with electrocautery and electrocautery was used to create the subcutaneous pocket to house the Port-A-Cath. I then proceeded to use a hemostat to create a tunnel from the chest wound to the neck. I then proceeded to make a 0.5 cm incision at the level of the wire insertion site in the neck. Hemostasis was verified. I then placed the Port-A-Cath in the pocket and tunneled the catheter using the provided tunneler. The catheter was cut to appropriate length under fluoroscopy guidance and then flushed. I then proceeded to insert an introducer with a peel-off sheath over the wire under direct fluoroscopic guidance. I then removed the wire and the introducer leaving the peel-off sheath in place. The catheter was then advanced through the peel-off sheath and the peel-off sheath was removed leaving the catheter in place. Fluoroscopy showed evidence of adequate catheter position. I then proceeded to access the port, the port was retrieving blood and flushing fine, I then hep-locked the catheter. Hemostasis was verified. The wound was closed in layers using #3-0 Vicryl for the subcutaneous tissue and #4 Monocryl for the skin. Dermabond was applied. At the end of the procedure all counts were correct. The patient tolerated well the procedure and was transferred to the PACU in stable condition.
--- NOTE | 2023-09-07 16:15 | ANE.PACU2 ---
Inpatient post-anesthesia follow up: Airway intact: Yes Vital signs: Temperature 98.0 F Pulse Rate 79 Respiratory Rate 16 Blood Pressure 159/88 Pulse Oximetry 94 Oxygen Delivery Me thod Room Air Oxygen Flow Rate Fraction of Inspir ed Oxygen Hydration adequate: Yes Nausea and vomiting: No Pain level: 1 Mental status: Baseline
== END 2023-09-07 16:15 | disposition home or self-care (01) ==
PROVIDERS: PCP Registered Nurse; Visit Provider Surgery
PROC: (CPT 36561; principal; 2023-09-07 12:55)
DX: C34.90 Malignant neoplasm of unspecified part of unspecified bronchus or lung (principal); C79.51 Secondary malignant neoplasm of bone; J44.9 Chronic obstructive pulmonary disease, unspecified; G47.30 Sleep apnea, unspecified; I25.10 Atherosclerotic heart disease of native coronary artery without angina pectoris; Z95.5 Presence of coronary angioplasty implant and graft; I10 Essential (primary) hypertension; E11.9 Type 2 diabetes mellitus without complications; E66.01 Morbid (severe) obesity due to excess calories; Z68.42 Body mass index [BMI] 45.0-49.9, adult; Z79.82 Long term (current) use of aspirin; E03.9 Hypothyroidism, unspecified; E78.5 Hyperlipidemia, unspecified; Z87.891 Personal history of nicotine dependence
CPT/HCPCS: 36561; 36416; 77001; 77386; 82962; C1788; J0690; J1644; J2250; J2704; J3010; J7030

== ENCOUNTER 2023-09-12 08:00 | Oncology outpatient (recurring) (ONCR) | payer MEDICARE, SELFPAY ==
[2023-08-29 11:45] LABS: Basophils # 0.1 10^3/uL (0.0-0.1); Basophils % 0.9 %; Eosinophils # 0.1 10^3/uL (0.0-0.8); Eosinophils % 1.5 %; Hematocrit 46.2 % (36-47); Lymphocytes # 1.8 10^3/uL (0.8-4.8); Lymphocytes % 21.7 %; Mean Corpuscular HGB Conc 32.7 g/dL (30-55); Mean Corpuscular Hemoglobin 28.5 pg (27-33); Mean Corpuscular Volume 87.2 fl (85-98); Mean Platelet Volume 12.3 fL (7.4-10.4); Monocytes # 0.7 10^3/uL (0.2-0.9); Monocytes % 8.6 %; Neutrophils % 66.9 %; Nucleated Red Blood Cells % 0 %; Platelet Count 250 10^3/cmm (157-399); Red Cell Distribution Width 13.9 % (12.1-15.1); White Blood Count 8.06 10^3/uL (3.29-11.43)
[2023-08-29 12:09] LABS: Alanine Aminotransferase 22 U/L (0-33); Albumin Level 4.2 g/dL (3.5-5.2); Alkaline Phosphatase 74 U/L (35-105); Anion Gap 13.9 (5-19); Aspartate Amino Transferase 20 U/L (0-32); Blood Urea Nitrogen 16 mg/dL (8-23); Calcium 9.1 mg/dL (8.5-10.5); Carbon Dioxide 29 mmol/L (22-29); Chloride 101 mmol/L (98-107); Globulin 2.6 g/dL (1.3-4.6); Glomerular Filtration Rate 55.5 mL/min (90-130); Glucose 99 mg/dL (65-115); Osmolality Calculated 291 mOsm/kg (285-295); Potassium 3.9 mmol/L (3.5-5.1); Sodium 140 mmol/L (136-145); Total Bilirubin 0.3 mg/dL (0.15-1.2); Total Protein 6.8 g/dL (6.6-8.7)
[2023-08-29 12:10] LABS: Slide Review Slide Review Perform
[2023-08-29 12:29] LABS: Hepatitis A Antibody IgM Non-Reactive (Nonreactive); Hepatitis B Core AB, Total Reactive (Nonreactive); Hepatitis B Surface AB < 3.5 (11.5-1000); Hepatitis B Surface Antigen Non-Reactive (Nonreactive); Hepatitis C Virus Antibody Non-Reactive (Nonreactive)
--- NOTE | 2023-09-04 16:26 | N.ONRAD NP_ITS ---
Radiation Oncology New Patient Visit Patient: Janet Pillai MR#: [id number] : 1955> Age: 68> Sex: Female> Dictated by: Dong Meol Date of Service: 09/04/2023 Referring Physician(s) : Diagnosis: Radiotherapy to date: Summary > No prior radiation therapy. Chief Complaint / History of Present Illness: 88-year-old female with history of tobacco use, COPD, lung noduels who recently diagnosed small cell cancer here to establish care She has a significant smoking history, having quit in 2009, and has been under the care of Dr. Gomes for lung nodule. She underwent LDCT 05/05/23: there is evidence of emphysema; New, nodular and tubular opacifications in the LEFT upper lobe. New since 04/14/2021. May be endobronchial secretions or pneumonia or early neoplasm. Recommend follow-up chest CT with IV contrast which was performed 06/13/23: Which showed no change in the small nodules and tubular opacification in the LEFT upper lobe. This will need long-term additional imaging follow-up. Evident on the postcontrast chest CT examination are enlarged LEFT hilar lymph nodes. The largest lymph node is 2.3 x 3.1 cm. These lymph nodes will need to be further evaluated. These may be metastatic lymph nodes or lymphoma. PET/CT 07/25/2023: Which showed FDG avid left perihilar pulmonary mass consistent with malignancy measuring 4.6 x 2.1 cm. Metastatic adenopathy to an adjacent FDG avid AP window lymph node measuring 3.8 x 2.5 cm with SUV 19.8. Focal moderate FDG uptake within the medial aspect of the right hip without an evident lytic or sclerotic bone lesion in this location on corresponding CT images. This could reflect early osseous metastasis. She underwent bronchoscopy with biopsy. Pathology from station 11 L lymph node showed small cell carcinoma. Station 7 lymph node negative Pulmonary function tests have been conducted, indicating moderate airflow obstruction. She presents today accompanied by her Ms. Pillai experiences intermittent difficulty breathing, She also reports a cough accompanied by phlegm production. Following the bronchoscopy, she observed blood in her phlegm, although this symptom has resolved. She is currently experiencing constant pain in both hips and has a history of falls. She notes her pain is worse in her left hip. MRI of the hips performed earlier today reveals a 2.6 x 2.4 cm enhancing T2 hyperintense lesion involving the right inner trend trochanteric femur corresponding to the PET/CT findings. The lesion was felt to be compatible with metastatic disease. No other visualized metastatic lesions were noted. The patient indicates she had a steroid injection in her right hip and denies right hip pain currently. No Active ChemotherapyCurrent Medications: Allergies: Sulfa (Sulfonamide Antibiotics) Allergy (Verified 08/30/23 10:01) Unknown sulfamethoxazole [From Bactrim] Allergy (Verified 08/30/23 10:01) itching trimethoprim [From Bactrim] Allergy (Verified 08/30/23 10:01) itching Medical History: Small cell carcinoma Mixed connective tissue disease Advanced directives, counseling/discussion Former heavy cigarette smoker (20-39 per day) Quit in 2009 Aortic insufficiency dx 10/14/02 Dr Kam Martinez Arthralgia of both knees Venous insufficiency of both lower extremities Opioid contract exists Personal history of nicotine dependence Quit 2009 History of prior cigarette smoking, 3 pack/day x 37 years, quit in 2009 prior to knee surgery. Obesity Hypothyroidism (acquired) Chronic joint pain Anxiety and depression Hyperlipidemia Common migraine with intractable migraine Left Achilles tendinitis Back pain, lumbosacral Type 2 diabetes mellitus Essential hypertension COPD (chronic obstructive pulmonary disease) Gastroesophageal reflux disease without esophagitis Surgical History: Stented coronary artery 2 stents done 02/16/96 in [place] History of knee replacement 2010 History of delivery Family History: Other CAD (coronary artery disease) Cancer Diabetes Denies family history of Rheumatoid arthritis Lupus Hyperlipidemia Chronic kidney disease (CKD) Hypertension Stroke Social History: Smoking and tobacco/nicotine status: former use of tobacco/nicotine Quit status (tobacco/nicotine): has quit using Year quit tobacco: 2009 Former quit date comment: 3 ppd X 37 years Alcohol intake: never Substance/Drug Use: never Lives independently: No Household members: spouse Marital status: 50 years Current occupational status: unemployed Do you think of yourself as: Straight/Heterosexual Current gender identity: Female Current Complaints / Review of Systems: . Vital Signs: Physical Exam: Alert and oriented female appearing her stated age. Moderately obese. PERRL, EOMI. Cranial nerves II through XII grossly intact. Tongue and uvula midline and mobile. Speech intact. Lungs clear to auscultation bilaterally. Cardiovascular exam reveals regular rhythm. Abdomen soft and rounded. Bowel sounds present normoactive. Motor symmetrical to the upper and lower extremities. Sensory intact. Patient ambulatory without assistance. Performance Status: ECOG 1 Pathology: Small cell carcinoma Lab: Imaging: See HPI Impression: 68-year-old female with small cell carcinoma of the lung. She has radiographic evidence (PET/CT and MRI) of possible bone metastases to the right hip. In discussion with Dr. Telles we discussed the option of biopsy of the hip however patient indicates she does not want a biopsy at this time. Patient is scheduled for chemotherapy to start tomorrow with treatment planning CT tomorrow. Combined chemoradiation will begin as soon as possible. Dr. Telles indicates she will consider immunotherapy that can be added later. Recommendation for prophylactic cranial radiation upon completion of chemoradiation to the lung was discussed with the patient and her . Additionally discussed was the precaution to inform her physicians if she develops right hip pain or has any difficulty ambulating due to the potential risk for pathologic fracture that might require surgery and/or palliative radiation therapy to the hip. Plan: Treatment planning CT scan is scheduled for tomorrow with intensity-modulated radiation therapy to the chest to start as soon as possible at 200 cGy per fraction for 30 fractions to dose of 60 Burnett. Patient is aware that prophylactic cranial irradiation will follow. If her right hip lesion becomes symptomatic palliative radiation therapy can be offered to that site also with either hypofractionated or 300 cGy x 10 fractions to a dose of 30 Burnett. Signed by: 09/04/2023 4:24:52 PM <<Signature on File>> Time spent with patient: 1 hour CPT Code: CPT Code:
[2023-09-05 08:58] LABS: Basophils # 0.1 10^3/uL (0.0-0.1); Basophils % 1.6 %; Eosinophils # 0.1 10^3/uL (0.0-0.8); Eosinophils % 1.5 %; Hematocrit 48.1 % (36-47); Lymphocytes % 25.8 %; Mean Corpuscular HGB Conc 32.4 g/dL (30-55); Mean Corpuscular Hemoglobin 28.1 pg (27-33); Mean Corpuscular Volume 86.7 fl (85-98); Mean Platelet Volume 11.2 fL (7.4-10.4); Monocytes # 0.8 10^3/uL (0.2-0.9); Monocytes % 9.5 %; Neutrophils # 4.83 10^3/uL (1.8-7.7); Neutrophils % 61.1 %; Nucleated Red Blood Cells % 0 %; Platelet Count 279 10^3/cmm (157-399); Red Blood Count 5.55 10^6/uL (3.85-5.65); Red Cell Distribution Width 13.7 % (12.1-15.1); White Blood Count 7.91 10^3/uL (3.29-11.43)
[2023-09-05 09:27] LABS: Alanine Aminotransferase 10 U/L (0-33); Albumin Level 4.5 g/dL (3.5-5.2); Anion Gap 17.5 (5-19); Aspartate Amino Transferase 14 U/L (0-32); Blood Urea Nitrogen 20 mg/dL (8-23); Calcium 9.5 mg/dL (8.5-10.5); Carbon Dioxide 27 mmol/L (22-29); Chloride 97 mmol/L (98-107); Globulin 2.9 g/dL (1.3-4.6); Glomerular Filtration Rate 55.5 mL/min (90-130); Glucose 135 mg/dL (65-115); Osmolality Calculated 291 mOsm/kg (285-295); Potassium 3.5 mmol/L (3.5-5.1); Sodium 138 mmol/L (136-145); Total Bilirubin 0.4 mg/dL (0.15-1.2); Total Protein 7.4 g/dL (6.6-8.7)
[2023-09-05 09:39] LABS: Alkaline Phosphatase 83 U/L (35-105)
[2023-09-05 09:40] LABS: Lactate Dehydrogenase 187 U/L (135-214)
[2023-09-07 01:40] LABS: Hepatitis B Envelope Antigen NON-REACTIVE (NON-REACTIVE); Hepatitis BE Antibody NON-REACTIVE (NON-REACTIVE)
[2023-09-08 13:38] LABS: Hepatitis B Virus DNA NOT DETECTED (NOT DETECTED); Hepatitis B Virus DNA PCR NOT DETECTED Log IU/mL (NOT DETECTED)
[2023-09-12 08:12] LABS: Basophils # 0.1 10^3/uL (0.0-0.1); Basophils % 1.3 %; Eosinophils # 0.2 10^3/uL (0.0-0.8); Eosinophils % 2.2 %; Hematocrit 45.4 % (36-47); Lymphocytes # 1.7 10^3/uL (0.8-4.8); Lymphocytes % 21.7 %; Mean Corpuscular HGB Conc 32.8 g/dL (30-55); Mean Corpuscular Hemoglobin 28.4 pg (27-33); Mean Corpuscular Volume 86.6 fl (85-98); Mean Platelet Volume 11.1 fL (7.4-10.4); Monocytes # 0.6 10^3/uL (0.2-0.9); Neutrophils # 5.08 10^3/uL (1.8-7.7); Neutrophils % 66.3 %; Nucleated Red Blood Cells % 0 %; Platelet Count 227 10^3/cmm (157-399); Red Blood Count 5.24 10^6/uL (3.85-5.65); Red Cell Distribution Width 13.8 % (12.1-15.1); White Blood Count 7.66 10^3/uL (3.29-11.43)
--- NOTE | 2023-09-12 09:04 | ONCRAD TMN_ITS ---
Radiation Oncology Weekly Treatment Management Patient: Janet Pillai MR#: [id number] : 1955 Attending Physician: Dick Marino Date of Service: 09/12/2023 Referring Physician(s) : Dr. Telles Diagnosis: C80.1 - Malignant (primary) neoplasm, unspecified, Diagnosed 08/01/2023 (Active) Radiotherapy to date: Course: LT Lung 2023, Treatment Site: LT [id number], Ref. ID: [id number], Energy: 6X, Dose/Fx (cGy): 200, #Fx: / 30, Dose Correction (cGy): 0, Total Dose Delivered (cGy): 800, Start Date: 09/07/2023, Elapsed Days: 5 Reason for visit: The patient is being seen today as part of their regularly scheduled weekly on treatment visits to assess for acute toxicities from radiotherapy. Review of Systems: Doing well with treatment. No SOB. Eating well. No sore throat. Begins chemo this week. Quit smoking 2009. Vital Signs: Performed on 09/12/2023 8:21 AM BMI - 46.649 kg/m2 (high), Height - 68 in, Weight - 306.8 lbs, Temperature - 97.4 f, Pulse - 84 /min, Respiration - 18 /min, O2 Sat - 97 %, Pain - 0, Fatigue - 5 and BP - 141/ 83 mm(hg)(high/). Physical Exam: omitted Imaging: Radiation therapy imaging related to accurate target localization (i.e. KV, MV and CBCT) was reviewed. Appropriate changes, if any, were made to ensure treatment accuracy. Plan: Good tolerance of treatment. Continue as planned. Signed by: Dick Marino 09/12/2023 9:03:38 AM
[2023-09-12 09:38] LABS: Alanine Aminotransferase 12 U/L (0-33); Albumin Level 4.3 g/dL (3.5-5.2); Alkaline Phosphatase 74 U/L (35-105); Anion Gap 16.4 (5-19); Aspartate Amino Transferase 13 U/L (0-32); Blood Urea Nitrogen 24 mg/dL (8-23); Calcium 9.7 mg/dL (8.5-10.5); Carbon Dioxide 26 mmol/L (22-29); Chloride 101 mmol/L (98-107); Creatinine Clr Calc Pharmacy 91.1075; Globulin 2.5 g/dL (1.3-4.6); Glomerular Filtration Rate 62.6 mL/min (90-130); Glucose 153 mg/dL (65-115); Osmolality Calculated 297 mOsm/kg (285-295); Potassium 3.4 mmol/L (3.5-5.1); Sodium 140 mmol/L (136-145); Total Bilirubin 0.3 mg/dL (0.15-1.2); Total Protein 6.8 g/dL (6.6-8.7)
[2023-09-12] MEDS: sodium chloride 0.9% 250 ML 75 ML IV (10:20)
[2023-09-12] MEDS: famotidine 20 mg/2 mL INJ IVP (10:21)
[2023-09-12] MEDS: acetaminophen 325 mg Tablet 650 MG PO (10:21)
[2023-09-12] MEDS: diphenhydrAMINE 50 mg/mL SDV 1mL 25 MG IVP (10:26)
[2023-09-12] MEDS: fosaprepitant 150 MG in sodium chloride 0.9% 150 ML 300 MG IV (10:31)
[2023-09-12] MEDS: CARBOplatin 750 MG in sodium chloride 0.9% 500 ML 575 MG IV (11:43)
[2023-09-12] MEDS: [UNRECOGNIZED DRUG - REMARK] 512.25 MG IV (12:55)
[2023-09-12 14:04] VITALS: BP 148/82; PULSE 102; RESP 16; TEMP 36.2; O2SAT 94
[2023-09-21 14:22] LABS: TSH Receptor Binding Antibody <1.00 IU/L (< OR = 2.00)
== END 2023-09-12 23:59 | disposition home or self-care (01) ==
PROVIDERS: Internal Medicine; Internal Medicine Medical Oncology; PCP Registered Nurse; Visit Provider Radiology Radiation Oncology
DX: Z53.9 Procedure and treatment not carried out, unspecified reason (principal); Z51.11 Encounter for antineoplastic chemotherapy; Z51.0 Encounter for antineoplastic radiation therapy; C34.92 Malignant neoplasm of unspecified part of left bronchus or lung; C79.51 Secondary malignant neoplasm of bone; Z79.899 Other long term (current) drug therapy; Z87.891 Personal history of nicotine dependence
CPT/HCPCS: 36415; 73723; 77300; 77301; 77334; 77338; 77386; 77470; 80053; 83516; 83615; 85025; 86705; 86706; 86707; 86709; 86803; 87340; 87350; 87517; 96367; 96375; 96413; 96417; 99024; 99204; 99205; 99214; 99215; A9577; J1100; J1200; J1453; J3490; J7030; J7040; J7050; J9045; J9181

== ENCOUNTER 2023-09-18 14:31 | Outpatient (CLI) | payer MEDICARE, SELFPAY ==
--- NOTE | 2023-09-18 14:37 | CT_ITS ---
WS: [id number] CT CHEST, ABDOMEN AND PELVIS WITH CONTRAST HISTORY: MALIGNANT NEOPLASM OF THE LEFT LUNG TECHNIQUE: Contiguous 5 mm axial imaging performed through the chest, abdomen and pelvis with IV cont rast, oral contrast has been provided. Coronal and sagittal reformats chest. Coronal and sagittal ref ormats through the abdomen and pelvis. All CT scans at [facility] use at least one of these d ose optimization techniques: automated exposure control; mA and/or kV adjustment per patient size (in cludes targeted exams where dose is matched to clinical indication); or iterative reconstruction. CONTRAST: Omnipaque 350; 100 mL IV. DLP: 1767.22 mGy.cm COMPARISON: Chest CT 08/01/2023 and 06/13/2023, PET/CT 07/25/[address]: Chronic emphysema. Reidentified is the mass centered at the LEFT hilum and perihilar region . Mass has significantly decreased in size since 06/13/2023. The largest portion of the residual mass is a necrotic appearing mass which is probably a lymph node adjacent to the descending aorta measuri ng 3.0 x 1.7 cm. Closer towards the LEFT perihilar region is a residual mass measuring 2.3 x 1.6 cm w hich is significantly decreased in size. No new or enlarging lymph nodes. The lungs are clear otherwi se. No pericardial or pleural effusions. Mild cardiomegaly. Mild enlargement of the pulmonary artery. Abdomen CT: Normal liver and gallbladder. Normal spleen with granulomata. No adrenal mass. Normal gan creas and kidneys. Nonobstructing LEFT renal calculi. Mild atherosclerosis aorta. Small abdominal her sanjiv containing fat only. Stomach is well distended with oral contrast. No small bowel obstruction. Mild diffuse constipation. Normal appendix. Mild sigmoid diverticular disease without acute diverticulitis. No free fluid or adenopathy. Small umbilical hernia. Pelvic CT: Normal urinary bladder. No free fluid or adenopathy. Increase in the lumbar lordosis. Schmorl's node at L3 is reidentified and similar to 2020. Positive f indings involving the RIGHT hip on the PET/CT are identified by CT. There is a very subtle area of in creased density in the RIGHT hip along the medial curvature of the femoral neck. IMPRESSION: 1. Significant decrease in size of the malignancy centered at the LEFT hilum/perihilar region. The l argest residual mass is 3.0 x 1.7 cm. 2. Chronic emphysema. No new or enlarging mediastinal or hilar lymph nodes. 3. PET/CT positive lesion in the RIGHT hip is identified by CT also. Very slight increase in density along the medial curvature of the inferior femoral neck. Differential includes metastatic disease an d stress fracture. Additional imaging to help further evaluate this lesion include bone scan to evalu ate for other lesions. MRI of the RIGHT hip with and without contrast would also provide additional i nformation. 4. No metastatic disease to the liver or adrenal glands.
[2023-09-18] MEDS: iohexol 350 mg/mL 500 mL Btl (per mL) PO (15:22)
[2023-09-18] MEDS: iohexol 350 mg/mL 500 mL Btl (per mL) IV (16:06)
== END 2023-09-18 14:32 | disposition home or self-care (01) ==
LOC: RAD 14:32
PROVIDERS: PCP Registered Nurse; Visit Provider Internal Medicine
DX: C34.90 Malignant neoplasm of unspecified part of unspecified bronchus or lung (principal); J43.9 Emphysema, unspecified
CPT/HCPCS: 71260; 74177; Q9967

== ENCOUNTER 2023-09-22 10:09 | Oncology outpatient (recurring) (ONCR) | payer MEDICARE, SELFPAY ==
[2023-09-13] MEDS: sodium chloride 0.9% 250 ML 75 ML IV (13:49)
[2023-09-13] MEDS: ondansetron 2 mg/ML SDV 2 mL 8 MG IVP (13:49)
[2023-09-13 13:56] VITALS: BP 132/77; PULSE 88; RESP 18; TEMP 37.2; O2SAT 99
[2023-09-13] MEDS: [UNRECOGNIZED DRUG - REMARK] 512.25 MG IV (14:06)
[2023-09-13 15:46] VITALS: BP 123/61; PULSE 88; O2SAT 92
[2023-09-14] MEDS: palonosetron 0.25 mg/5 mL SDV IVP (14:15)
[2023-09-14] MEDS: sodium chloride 0.9% 250 ML 75 ML IV (14:15)
[2023-09-14] MEDS: [UNRECOGNIZED DRUG - REMARK] 512.25 MG IV (14:28)
[2023-09-14 15:45] VITALS: BP 121/71; PULSE 72; RESP 18; TEMP 36.6; O2SAT 96
[2023-09-19 13:13] LABS: Basophils # 0.1 10^3/uL (0.0-0.1); Eosinophils # 0.1 10^3/uL (0.0-0.8); Eosinophils % 1.2 %; Lymphocytes % 16.4 %; Mean Corpuscular HGB Conc 33.7 g/dL (30-55); Mean Corpuscular Hemoglobin 28.2 pg (27-33); Mean Corpuscular Volume 83.7 fl (85-98); Mean Platelet Volume 10.9 fL (7.4-10.4); Monocytes # 0.1 10^3/uL (0.2-0.9); Monocytes % 1.7 %; Neutrophils # 4.75 10^3/uL (1.8-7.7); Neutrophils % 78.9 %; Nucleated Red Blood Cells % 0 %; Platelet Count 189 10^3/cmm (157-399); Red Blood Count 4.54 10^6/uL (3.85-5.65); White Blood Count 6.02 10^3/uL (3.29-11.43)
--- NOTE | 2023-09-19 13:24 | ONCRAD TMN_ITS ---
Radiation Oncology Weekly Treatment Management Patient: Rosas Gonzales> MR#: [id number] : 1955> Attending Physician: Dr. Abimbola Maldonado Date of Service: 09/19/2023 Fractions: 9 out of 30 Referring Physician(s) : Diagnosis: C80.1 - Malignant (primary) neoplasm, unspecified, Diagnosed 08/01/2023 (Active) Radiotherapy to date: Course: LT Lung 2023, Treatment Site: LT [id number], Ref. ID: [id number], Energy: 6X, Dose/Fx (cGy): 200, #Fx: , Dose Correction (cGy): 0, Total Dose Delivered (cGy): 1,800, Start Date: 09/07/2023, Elapsed Days: 12 Reason for visit: The patient is being seen today as part of their regularly scheduled weekly on treatment visits to assess for acute toxicities from radiotherapy. Review of Systems: Patient denies any complaints today other than being tired Vital Signs: Performed on 09/19/2023 12:53 PM BMI - 47.075 kg/m2 (high), Height - 68 in, Weight - 309.6 lbs, Temperature - 97.6 f, Pulse - 97 /min, Respiration - 18 /min, O2 Sat - 96 %, Pain - 0, Fatigue - 8 and BP - 143/ 68 mm(hg)(high/). Physical Exam: No changes on examination. Respiratory rate is regular nonlabored Imaging: Radiation therapy imaging related to accurate target localization (i.e. KV, MV and CBCT) was reviewed. Appropriate changes, if any, were made to ensure treatment accuracy. Plan: Continue with treatments as planned. She did have a CT scan ordered by medical oncology. I gave her those results today. Signed by: Dr. Abimbola Maldonado 09/19/2023 1:23:11 PM
[2023-09-19 13:57] LABS: Alanine Aminotransferase 12 U/L (0-33); Albumin Level 3.8 g/dL (3.5-5.2); Alkaline Phosphatase 77 U/L (35-105); Anion Gap 15.7 (5-19); Aspartate Amino Transferase 13 U/L (0-32); Blood Urea Nitrogen 17 mg/dL (8-23); Calcium 9.4 mg/dL (8.5-10.5); Carbon Dioxide 28 mmol/L (22-29); Chloride 91 mmol/L (98-107); Globulin 2.5 g/dL (1.3-4.6); Glomerular Filtration Rate 71.8 mL/min (90-130); Glucose 166 mg/dL (65-115); Osmolality Calculated 277 mOsm/kg (285-295); Potassium 3.7 mmol/L (3.5-5.1); Sodium 131 mmol/L (136-145); Total Bilirubin 0.4 mg/dL (0.15-1.2); Total Protein 6.3 g/dL (6.6-8.7)
== END 2023-09-24 23:59 | disposition home or self-care (01) ==
PROVIDERS: Nurse Practitioner Family; Absent Provider Internal Medicine; PCP Registered Nurse; Visit Provider Radiology Radiation Oncology
DX: Z53.9 Procedure and treatment not carried out, unspecified reason
CPT/HCPCS: 36591; 77336; 77386; 80053; 85025; 96375; 96413; 99024; J1642; J2405; J2469; J7030; J7050; J9181

== ENCOUNTER → 2023-09-26 07:37 | Outpatient (BNVA) | payer MEDICARE, SELFPAY | PROVIDERS: PCP Registered Nurse; Visit Provider Surgery | DX: C34.92 Malignant neoplasm of unspecified part of left bronchus or lung (principal) | CPT/HCPCS: 99213 ==

== ENCOUNTER 2023-10-05 15:09 | Outpatient (CLI) | payer MEDICARE, SELFPAY ==
--- NOTE | 2023-10-05 15:15 | MR_ITS ---
WS: [id number] MRI HEAD WITH CONTRAST TECHNIQUE: Sagittal T1, T2 axial, T2 axial FLAIR, axial susceptibility weighted imaging, axial diffus ion weighted images, and coronal T2 images were obtained. Pre and post-T1 axial and post T1 coronal i mages. ADC and FSPGR images. CLINICAL INFORMATION: small cell carcinoma COMPARISON: CT head 2019 FINDINGS: No evidence of enhancing intracranial metastatic disease. Normal dural venous sinuses. No evidence of restricted diffusion to suggest acute ischemia. Normal posterior fossa. Normal vascular flow voids a t the skull base. No extra-axial fluid collections. No evidence of mass or mass effect. Paranasal sinuses are well aerated. Mastoid air cells are well aerated. Normal posterior nasopharynx. No hemosiderin on the susceptibility weighted images. Mild small vessel changes. No significant pare nchymal volume loss. Normal optic chiasm and pituitary infundibulum. Temporal lobes and hippocampal f ormations are normal in appearance. No other suspicious findings. IMPRESSION: 1. No evidence of restricted diffusion to suggest acute ischemia. 2. No evidence of enhancing intracranial metastatic disease. 3. Mild small vessel changes. No significant parenchymal volume loss. 4. No other suspicious findings.
[2023-10-05] MEDS: gadobenate dimeglumine 20 mL vial IV (16:10)
== END 2023-10-05 15:10 | disposition home or self-care (01) ==
LOC: RAD 15:09
PROVIDERS: PCP Registered Nurse; Visit Provider Internal Medicine
DX: C80.1 Malignant (primary) neoplasm, unspecified (principal); C34.92 Malignant neoplasm of unspecified part of left bronchus or lung; R91.1 Solitary pulmonary nodule
CPT/HCPCS: 70553; A9577

== ENCOUNTER 2023-10-06 08:02 | Oncology outpatient (recurring) (ONCR) | payer MEDICARE, SELFPAY ==
[2023-09-26 08:38] LABS: Basophils % 1.2 %; Eosinophils % 1.6 %; Hematocrit 38.4 % (36-47); Mean Corpuscular HGB Conc 33.9 g/dL (30-55); Mean Corpuscular Hemoglobin 28.3 pg (27-33); Mean Corpuscular Volume 83.5 fl (85-98); Mean Platelet Volume 10.4 fL (7.4-10.4); Monocytes # 0.4 10^3/uL (0.2-0.9); Monocytes % 16.1 %; Neutrophils # 1.04 10^3/uL (1.8-7.7); Neutrophils % 41.7 %; Nucleated Red Blood Cells % 0 %; Platelet Count 70 10^3/cmm (157-399); Red Cell Distribution Width 12.7 % (12.1-15.1); White Blood Count 2.49 10^3/uL (3.29-11.43)
[2023-09-26 08:57] LABS: Alanine Aminotransferase 14 U/L (0-33); Albumin Level 4.2 g/dL (3.5-5.2); Alkaline Phosphatase 76 U/L (35-105); Anion Gap 15.6 (5-19); Aspartate Amino Transferase 12 U/L (0-32); Blood Urea Nitrogen 22 mg/dL (8-23); Calcium 9.4 mg/dL (8.5-10.5); Carbon Dioxide 26 mmol/L (22-29); Chloride 101 mmol/L (98-107); Globulin 2.7 g/dL (1.3-4.6); Glomerular Filtration Rate 62.6 mL/min (90-130); Glucose 133 mg/dL (65-115); Osmolality Calculated 293 mOsm/kg (285-295); Potassium 3.6 mmol/L (3.5-5.1); Sodium 139 mmol/L (136-145); Total Bilirubin 0.3 mg/dL (0.15-1.2); Total Protein 6.9 g/dL (6.6-8.7)
--- NOTE | 2023-09-26 09:49 | ONCRAD TMN_ITS ---
Radiation Oncology Weekly Treatment Management Patient: Janet Pillai MR#: [id number] : 1955 Attending Physician: Dr. Abimbola Maldonado Date of Service: 09/26/2023 Fractions: 14 out of 30 Referring Physician(s) : Diagnosis: C80.1 - Malignant (primary) neoplasm, unspecified, Diagnosed 08/01/2023 (Active) Radiotherapy to date: Course: LT Lung 2023, Treatment Site: LT [id number], Ref. ID: [id number], Energy: 6X, Dose/Fx (cGy): 200, #Fx: , Dose Correction (cGy): 0, Total Dose Delivered (cGy): 2,800, Start Date: 09/07/2023, Elapsed Days: 19 Reason for visit: The patient is being seen today as part of their regularly scheduled weekly on treatment visits to assess for acute toxicities from radiotherapy. Review of Systems: Patient has had no changes. She has no trouble swallowing. She is just fatigued Vital Signs: Performed on 09/26/2023 8:50 AM BMI - 47.196 kg/m2 (high), Height - 68 in, Weight - 310.4 lbs, Temperature - 97.7 f, Pulse - 92 /min, Respiration - 18 /min, O2 Sat - 97 %, Pain - 0, Fatigue - 8 and BP - 146/ 72 mm(hg)(high/). Physical Exam: No changes noted Imaging: Radiation therapy imaging related to accurate target localization (i.e. KV, MV and CBCT) was reviewed. Appropriate changes, if any, were made to ensure treatment accuracy. Plan: Will continue with treatments as planned. She is due for chemo on 02 October. Signed by: Dr. Abimbola Maldonado 09/26/2023 9:47:30 AM
--- NOTE | 2023-10-03 10:06 | ONCRAD TMN_ITS ---
Radiation Oncology Weekly Treatment Management Patient: Janet Pillai MR#: [id number] : 1955 Attending Physician: Dr. Abimbola Maldonado Date of Service: 10/03/2023 Fractions: with chemotherapy today Referring Physician(s) : Diagnosis: C80.1 - Malignant (primary) neoplasm, unspecified, Diagnosed 08/01/2023 (Active) Radiotherapy to date: Course: LT Lung 2023, Treatment Site: LT [id number], Ref. ID: [id number], Energy: 6X, Dose/Fx (cGy): 200, #Fx: , Dose Correction (cGy): 0, Total Dose Delivered (cGy): 3,800, Start Date: 09/07/2023, Elapsed Days: Reason for visit: The patient is being seen today as part of their regularly scheduled weekly on treatment visits to assess for acute toxicities from radiotherapy. Review of Systems: Patient denies any difficulty swallowing no changes respiratory status. She still just fatigued Vital Signs: Performed on 10/03/2023 9:46 AM BMI - 47.044 kg/m2 (high), Height - 68 in, Weight - 309.4 lbs, Temperature - 98.1 f, Pulse - 88 /min, Respiration - 18 /min, O2 Sat - 98 %, Pain - 0, Fatigue - 8 and BP - 157/ 65 mm(hg)(high/). Physical Exam: No changes on exam Imaging: Radiation therapy imaging related to accurate target localization (i.e. KV, MV and CBCT) was reviewed. Appropriate changes, if any, were made to ensure treatment accuracy. Plan: Will continue with treatments as planned. I encouraged her to rest when needed. Signed by: Dr. Abimbola Maldonado 10/03/2023 10:04:43 AM
[2023-10-03 11:02] LABS: Basophils # 0.1 10^3/uL (0.0-0.1); Basophils % 1.5 %; Eosinophils % 0.8 %; Hematocrit 39.4 % (36-47); Lymphocytes # 1.1 10^3/uL (0.8-4.8); Lymphocytes % 21.8 %; Mean Corpuscular Hemoglobin 28.1 pg (27-33); Mean Corpuscular Volume 85.3 fl (85-98); Mean Platelet Volume 10.2 fL (7.4-10.4); Monocytes # 0.5 10^3/uL (0.2-0.9); Monocytes % 11.2 %; Neutrophils # 2.84 10^3/uL (1.8-7.7); Neutrophils % 58.9 %; Nucleated Red Blood Cells % 0 %; Platelet Count 273 10^3/cmm (157-399); Red Blood Count 4.62 10^6/uL (3.85-5.65); Red Cell Distribution Width 14.7 % (12.1-15.1); White Blood Count 4.82 10^3/uL (3.29-11.43)
[2023-10-03 11:18] LABS: Alanine Aminotransferase 15 U/L (0-33); Alkaline Phosphatase 75 U/L (35-105); Anion Gap 17.4 (5-19); Aspartate Amino Transferase 15 U/L (0-32); Blood Urea Nitrogen 19 mg/dL (8-23); Carbon Dioxide 25 mmol/L (22-29); Chloride 100 mmol/L (98-107); Creatinine Clr Calc Pharmacy 103.0905; Glomerular Filtration Rate 71.8 mL/min (90-130); Glucose 126 mg/dL (65-115); Osmolality Calculated 292 mOsm/kg (285-295); Potassium 3.4 mmol/L (3.5-5.1); Sodium 139 mmol/L (136-145); Total Bilirubin 0.2 mg/dL (0.15-1.2)
[2023-10-03 11:39] LABS: Slide Review Slide Review Perform
[2023-10-03] MEDS: sodium chlor 0.9% + KCl 40 mEq 40 MEQ/1,000 ML BAG 250 MEQ IV (12:20)
[2023-10-03] MEDS: acetaminophen 325 mg Tablet 650 MG PO (12:46)
[2023-10-03] MEDS: diphenhydrAMINE 50 mg/mL SDV 1mL 25 MG IVP (12:46)
[2023-10-03] MEDS: sodium chloride 0.9% 250 ML 75 ML IV (12:46)
[2023-10-03] MEDS: famotidine 20 mg/2 mL INJ IVP (12:49)
[2023-10-03] MEDS: fosaprepitant 150 MG in sodium chloride 0.9% 150 ML 300 MG IV (12:51)
[2023-10-03] MEDS: CARBOplatin 750 MG in sodium chloride 0.9% 500 ML 575 MG IV (13:38)
[2023-10-03] MEDS: [UNRECOGNIZED DRUG - REMARK] 512.25 MG IV (14:55)
[2023-10-03 16:07] VITALS: BP 123/78; PULSE 94; RESP 18; O2SAT 94
[2023-10-04] MEDS: sodium chloride 0.9% 250 ML 75 ML IV (12:15)
[2023-10-04] MEDS: ondansetron 2 mg/ML SDV 2 mL 8 MG IVP (12:18)
[2023-10-04 12:43] VITALS: BP 126/74; PULSE 98; RESP 18; TEMP 37.5; O2SAT 96
[2023-10-04] MEDS: [UNRECOGNIZED DRUG - REMARK] 512.25 MG IV (13:02)
[2023-10-04 14:24] VITALS: BP 136/67; PULSE 97; RESP 16; TEMP 37.5; O2SAT 92
[2023-10-05] MEDS: sodium chloride 0.9% 250 ML 75 ML IV (13:36)
[2023-10-05] MEDS: palonosetron 0.25 mg/5 mL SDV IVP (13:39)
[2023-10-05] MEDS: [UNRECOGNIZED DRUG - REMARK] 512.25 MG IV (13:40)
[2023-10-05 13:45] VITALS: BP 126/77; PULSE 85; RESP 18; TEMP 37.4; O2SAT 93
[2023-10-05 15:14] VITALS: BP 103/56; PULSE 91; TEMP 36.6; O2SAT 94
[2023-10-08 02:54] LABS: TSH Receptor Binding Antibody <1.00 IU/L (< OR = 2.00)
== END 2023-10-06 23:59 | disposition home or self-care (01) ==
PROVIDERS: Nurse Practitioner Family; Absent Provider Internal Medicine; PCP Registered Nurse; Visit Provider Radiology Radiation Oncology
DX: Z51.0 Encounter for antineoplastic radiation therapy (principal); C34.92 Malignant neoplasm of unspecified part of left bronchus or lung; C79.51 Secondary malignant neoplasm of bone; Z87.891 Personal history of nicotine dependence
CPT/HCPCS: 11721; 36591; 70553; 77336; 77386; 80053; 83516; 85025; 96367; 96368; 96375; 96413; 96417; 99024; 99213; 99215; A9577; J1100; J1200; J1453; J1642; J2405; J2469; J3490; J7030; J7040; J7050; J9045; J9181

== ENCOUNTER 2023-10-24 10:45 | Oncology outpatient (recurring) (ONCR) | payer MEDICARE, SELFPAY ==
--- NOTE | 2023-10-10 10:22 | ONCRAD TMN_ITS ---
Radiation Oncology Weekly Treatment Management Patient: Rosas Gonzales> MR#: [id number] : 1955> Attending Physician: Dr. Abimbola Maldonado Date of Service: 10/10/2023 Fractions: 25 out of 30 with chemotherapy last week Referring Physician(s) : Diagnosis: C80.1 - Malignant (primary) neoplasm, unspecified, Diagnosed 08/01/2023 (Active) Radiotherapy to date: Course: LT Lung 2023, Treatment Site: LT [id number], Ref. ID: [id number], Energy: 6X, Dose/Fx (cGy): 200, #Fx: , Dose Correction (cGy): 0, Total Dose Delivered (cGy): 4,800, Start Date: 09/07/2023, Elapsed Days: 33 Reason for visit: The patient is being seen today as part of their regularly scheduled weekly on treatment visits to assess for acute toxicities from radiotherapy. Review of Systems: Patient has had some sharp shooting pains in the left chest area Vital Signs: Performed on 10/10/2023 9:20 AM BMI - 46.984 kg/m2 (high), Height - 68 in, Weight - 309 lbs, Temperature - 96.7 f, Pulse - 106 /min (high), Respiration - 18 /min, O2 Sat - 97 %, Pain - 0, Fatigue - 0 and BP - 146/ 85 mm(hg)(high/). Physical Exam: No changes on exam Imaging: Radiation therapy imaging related to accurate target localization (i.e. KV, MV and CBCT) was reviewed. Appropriate changes, if any, were made to ensure treatment accuracy. Plan: Will continue with treatments as planned. I reassured her it is normal to have some occasional sharp shooting pains as the cancer shrinks. I gave her the results of the MRI today which did not reveal any metastatic disease. Signed by: Dr. Abimbola Maldonado 10/10/2023 10:21:05 AM
--- NOTE | 2023-10-17 13:49 | ONCRAD TMN_ITS ---
Radiation Oncology Weekly Treatment Management Patient: Janet Pillai MR#: [id number] : 1955 Attending Physician: Dr. Abimbola Maldonado Date of Service: 10/17/2023 Fractions: 29 out of 30 Referring Physician(s) : Diagnosis: C80.1 - Malignant (primary) neoplasm, unspecified, Diagnosed 08/01/2023 (Active) Radiotherapy to date: Course: LT Lung 2023, Treatment Site: LT [id number], Ref. ID: [id number], Energy: 6X, Dose/Fx (cGy): 200, #Fx: 29 / 30, Dose Correction (cGy): 0, Total Dose Delivered (cGy): 5,800, Start Date: 09/07/2023, Elapsed Days: 40 Reason for visit: The patient is being seen today as part of their regularly scheduled weekly on treatment visits to assess for acute toxicities from radiotherapy. Review of Systems: Patient continues to do well. She is not have any issues this week. Respiratory status remained stable. She has no trouble swallowing. Vital Signs: Performed on 10/17/2023 1:11 PM BMI - 46.771 kg/m2 (high), Height - 68 in, Weight - 307.6 lbs, Temperature - 97.2 f, Pulse - 96 /min, Respiration - 18 /min, O2 Sat - 97 %, Pain - 0, Fatigue - 5 and BP - 142/ 77 mm(hg)(high/). Physical Exam: No changes on exam Imaging: Radiation therapy imaging related to accurate target localization (i.e. KV, MV and CBCT) was reviewed. Appropriate changes, if any, were made to ensure treatment accuracy. Plan: Will continue with her treatments. She will be finished tomorrow. After that she gets 2 more cycles of chemotherapy before she has imaging done. She plans to go to [place] for 3 weeks after she finishes her chemotherapy Signed by: Dr. Abimbola Maldonado 10/17/2023 1:48:16 PM
--- NOTE | 2023-10-19 08:16 | N.ONRD TS_ITS ---
Radiation Oncology Treatment Summary Patient: Janet Pillai MR#: [id number] : 1955 Age: 68 Sex: Female Dictated by: Dr. Abimbola Maldonado Date of Service: 10/18/2023 Referring Physician(s) : Diagnosis: C80.1 - Malignant (primary) neoplasm, unspecified, Diagnosed 08/01/2023 (Active) Radiotherapy to Date: Course: LT Lung 2023, Treatment Site: LT [id number], Ref. ID: [id number], Energy: 6X, Dose/Fx (cGy): 200, #Fx: 30 / 30, Dose Correction (cGy): 0, Total Dose Delivered (cGy): 6,000, Start Date: 09/07/2023, End Date: 10/18/2023, Elapsed Days: 41 Clinical Summary: The patient tolerated RT well. She had no acute side effects. Plan: End of treatment today. Continue on the above medication until the skin reaction resolves. Follow up in one month. Signed by: Dr. Abimbola Maldonado>10/19/2023 8:14:53 AM <<Signature on File>>
[2023-10-24 09:46] LABS: Basophils # 0.1 10^3/uL (0.0-0.1); Basophils % 1.2 %; Eosinophils # 0.1 10^3/uL (0.0-0.8); Eosinophils % 0.8 %; Hematocrit 36.7 % (36-47); Lymphocytes # 0.8 10^3/uL (0.8-4.8); Lymphocytes % 13.6 %; Mean Corpuscular HGB Conc 33.5 g/dL (30-55); Mean Corpuscular Hemoglobin 28.9 pg (27-33); Mean Corpuscular Volume 86.2 fl (85-98); Mean Platelet Volume 9.5 fL (7.4-10.4); Monocytes # 0.8 10^3/uL (0.2-0.9); Neutrophils # 3.91 10^3/uL (1.8-7.7); Neutrophils % 65.9 %; Nucleated Red Blood Cells % 0.3 %; Platelet Count 212 10^3/cmm (157-399); Red Blood Count 4.26 10^6/uL (3.85-5.65); Red Cell Distribution Width 17.1 % (12.1-15.1); White Blood Count 5.94 10^3/uL (3.29-11.43)
[2023-10-24 10:08] LABS: Albumin Level 4.2 g/dL (3.5-5.2); Alkaline Phosphatase 79 U/L (35-105); Aspartate Amino Transferase 17 U/L (0-32); Blood Urea Nitrogen 18 mg/dL (8-23); Calcium 8.6 mg/dL (8.5-10.5); Carbon Dioxide 27 mmol/L (22-29); Chloride 99 mmol/L (98-107); Globulin 2.5 g/dL (1.3-4.6); Glomerular Filtration Rate 55.5 mL/min (90-130); Glucose 199 mg/dL (65-115); Osmolality Calculated 297 mOsm/kg (285-295); Sodium 140 mmol/L (136-145); Total Bilirubin 0.3 mg/dL (0.15-1.2); Total Protein 6.7 g/dL (6.6-8.7)
[2023-10-24 11:19] LABS: Alanine Aminotransferase 17 U/L (0-33)
[2023-10-24] MEDS: acetaminophen 325 mg Tablet 650 MG PO (13:44)
[2023-10-24] MEDS: sodium chloride 0.9% 250 ML 75 ML IV (13:44)
[2023-10-24] MEDS: diphenhydrAMINE 50 mg/mL SDV 1mL 25 MG IVP (13:45)
[2023-10-24] MEDS: famotidine 20 mg/2 mL INJ IVP (13:47)
[2023-10-24] MEDS: fosaprepitant 150 MG in sodium chloride 0.9% 150 ML 300 MG IV (13:49)
[2023-10-24] MEDS: durvalumab 1,500 MG in sodium chloride 0.9% 250 ML 280 MG IV (14:21)
[2023-10-24] MEDS: [UNRECOGNIZED DRUG - REMARK] 512.25 MG IV (15:31)
[2023-10-24] MEDS: CARBOPLATIN IV (16:46)
[2023-10-24] MEDS: SODIUM CHLORIDE 0.9% IV (16:46)
[2023-10-24 17:28] VITALS: BP 145/79; PULSE 97; RESP 16; TEMP 36.4; O2SAT 91
== END 2023-10-24 23:59 | disposition home or self-care (01) ==
PROVIDERS: Absent Provider Internal Medicine; PCP Registered Nurse; Visit Provider Radiology Radiation Oncology
DX: Z87.891 Personal history of nicotine dependence; Z53.9 Procedure and treatment not carried out, unspecified reason; Z51.11 Encounter for antineoplastic chemotherapy; Z51.12 Encounter for antineoplastic immunotherapy; C34.92 Malignant neoplasm of unspecified part of left bronchus or lung; E87.6 Hypokalemia; E11.9 Type 2 diabetes mellitus without complications; C79.31 Secondary malignant neoplasm of brain; Z79.899 Other long term (current) drug therapy
CPT/HCPCS: 77336; 77386; 80053; 85025; 96367; 96375; 96413; 96415; 99024; 99214; A4222; J1100; J1200; J1453; J3490; J7030; J7040; J7050; J9045; J9173; J9181

== ENCOUNTER → 2023-11-13 09:00 | Outpatient (BNVA) | payer MEDICARE, SELFPAY | PROVIDERS: PCP Registered Nurse; Visit Provider Nurse Practitioner Family | DX: I10 Essential (primary) hypertension (principal); I25.10 Atherosclerotic heart disease of native coronary artery without angina pectoris; Z87.891 Personal history of nicotine dependence | CPT/HCPCS: 99214 ==

== ENCOUNTER 2023-11-14 10:43 | Oncology outpatient (recurring) (ONCR) | payer MEDICARE, SELFPAY ==
[2023-10-25 09:20] VITALS: BP 152/82; PULSE 87; RESP 18; TEMP 36.9; O2SAT 96
[2023-10-25] MEDS: sodium chloride 0.9% 250 ML 75 ML IV (09:24)
[2023-10-25] MEDS: ondansetron 2 mg/ML SDV 2 mL 8 MG IVP (09:25)
[2023-10-25] MEDS: [UNRECOGNIZED DRUG - REMARK] 512.25 MG IV (09:40)
[2023-10-25 10:46] VITALS: BP 139/72; PULSE 97; RESP 18; TEMP 36.7; O2SAT 95
[2023-10-26 08:53] VITALS: BP 133/69; PULSE 92; RESP 20; TEMP 36.6; O2SAT 98
[2023-10-26] MEDS: sodium chloride 0.9% (100 ml) 100 ML 75 ML (09:05)
[2023-10-26] MEDS: palonosetron 0.25 mg/5 mL SDV IVP (09:09)
[2023-10-26] MEDS: [UNRECOGNIZED DRUG - REMARK] 512.25 MG IV (09:30)
[2023-10-26 10:50] VITALS: BP 136/65; PULSE 80; RESP 17; TEMP 36.7; O2SAT 98
--- NOTE | 2023-10-27 12:24 | PC.NURSE ---
This patient called and let this nurse know that her port is red, swollen, warm to touch, and painful. I asked the patient if she was running any fever and she said she has been chilling. I let the patient know that I will check with one of our [employer]END[employer] and call her back. I spoke to Aaron Royal NP and she let me know that the patient needs to be evaluated in the ER. Called the patient and let her know and the patient acknowledged understanding and had no other questions.
[2023-11-13 11:31] LABS: Hematocrit 31.3 % (36-47); Mean Corpuscular HGB Conc 31.9 g/dL (30-55); Mean Corpuscular Hemoglobin 29.7 pg (27-33); Mean Corpuscular Volume 92.9 fl (85-98); Mean Platelet Volume 10.5 fL (7.4-10.4); Platelet Count 227 10^3/cmm (157-399); Red Blood Count 3.37 10^6/uL (3.85-5.65)
[2023-11-13 11:50] LABS: Albumin Level 3.8 g/dL (3.5-5.2); Alkaline Phosphatase 81 U/L (35-105); Anion Gap 18.8 (5-19); Aspartate Amino Transferase 21 U/L (0-32); Blood Urea Nitrogen 14 mg/dL (8-23); Carbon Dioxide 27 mmol/L (22-29); Chloride 101 mmol/L (98-107); Globulin 3.1 g/dL (1.3-4.6); Glomerular Filtration Rate 62.6 mL/min (90-130); Glucose 180 mg/dL (65-115); NT Pro B Type Natriuretic Pept 613 pg/mL (0-125); Osmolality Calculated 301 mOsm/kg (285-295); Potassium 3.8 mmol/L (3.5-5.1); Sodium 143 mmol/L (136-145); Total Bilirubin 0.3 mg/dL (0.15-1.2); Total Protein 6.9 g/dL (6.6-8.7)
[2023-11-13 12:01] LABS: Alanine Aminotransferase 18 U/L (0-33)
[2023-11-13 12:23] LABS: Slide Review Slide Review Perform
[2023-11-13 12:24] LABS: Absolute Neutrophil 4.9 10^3/cmm (1.4-6.5); Absolute Segmented Neutrophil 4.6 10/cmm (1.6-7.1); Anisocytosis Trace; Band Neutrophils Absolute 0.3 10^3/cmm (0.0-1.2); Eosinophils 0 %; Giant Platelets Trace; Lymphocytes 13 %; Monocytes Absolute 0.9 10^3/cmm (0.1-0.6); Platelet Estimate Normal (Normal); Polychromasia 1+; Segmented Neutrophils 65 %; Total Cells Counted 100 (0-100)
[2023-11-14] MEDS: acetaminophen 325 mg Tablet 650 MG PO (12:42)
[2023-11-14] MEDS: famotidine 20 mg/2 mL INJ IVP (12:43)
[2023-11-14] MEDS: diphenhydrAMINE 50 mg/mL SDV 1mL 25 MG IVP (12:43)
[2023-11-14] MEDS: sodium chloride 0.9% 250 ML 75 ML IV (12:43)
[2023-11-14 12:48] VITALS: BP 176/73; PULSE 101; RESP 20; TEMP 36.8; O2SAT 97
[2023-11-14] MEDS: fosaprepitant 150 MG in sodium chloride 0.9% 150 ML 300 MG IV (13:09)
[2023-11-14] MEDS: durvalumab 1,500 MG in sodium chloride 0.9% 250 ML 280 MG IV (13:48)
[2023-11-14] MEDS: CARBOplatin 750 MG in sodium chloride 0.9% 500 ML 575 MG IV (14:45)
[2023-11-14] MEDS: [UNRECOGNIZED DRUG - REMARK] 512.25 MG IV (15:49)
[2023-11-14 17:02] VITALS: BP 141/80; PULSE 93; RESP 17; TEMP 36.4; O2SAT 97
[2023-11-25 23:25] LABS: TSH Receptor Binding Antibody <1.00 IU/L (< OR = 2.00)
== END 2023-11-14 23:59 | disposition home or self-care (01) ==
PROVIDERS: Nurse Practitioner Family; Absent Provider Internal Medicine; PCP Registered Nurse; Visit Provider Radiology Radiation Oncology
DX: Z53.9 Procedure and treatment not carried out, unspecified reason; C34.92 Malignant neoplasm of unspecified part of left bronchus or lung; Z51.11 Encounter for antineoplastic chemotherapy; C79.51 Secondary malignant neoplasm of bone
CPT/HCPCS: 36591; 80053; 83516; 83880; 85007; 85025; 96367; 96375; 96413; 96417; 99214; A4222; J1100; J1200; J1453; J2405; J2469; J3490; J7030; J7040; J7050; J9045; J9173; J9181

== ENCOUNTER 2023-11-24 10:00 | Oncology outpatient (recurring) (ONCR) | payer MEDICARE, SELFPAY ==
[2023-11-15] MEDS: sodium chloride 0.9% 250 ML 75 ML IV (09:16)
[2023-11-15] MEDS: ondansetron 2 mg/ML SDV 2 mL 8 MG IVP (09:17)
[2023-11-15 09:25] VITALS: BP 132/81; PULSE 91
[2023-11-15] MEDS: [UNRECOGNIZED DRUG - REMARK] 512.25 MG IV (10:03)
[2023-11-15 11:34] VITALS: BP 132/76; PULSE 97; TEMP 36.4; O2SAT 95
[2023-11-16] MEDS: sodium chloride 0.9% 250 ML 75 ML IV (10:15)
[2023-11-16] MEDS: palonosetron 0.25 mg/5 mL SDV IVP (10:19)
[2023-11-16 10:27] VITALS: BP 129/76; PULSE 81; RESP 18; TEMP 36.5; O2SAT 95
[2023-11-16] MEDS: [UNRECOGNIZED DRUG - REMARK] 512.25 MG IV (10:53)
[2023-11-16 11:57] VITALS: BP 120/66; PULSE 64; RESP 18; O2SAT 94
[2023-11-24 10:55] LABS: Basophils % 1.2 %; Eosinophils % 0.9 %; Hematocrit 26.3 % (36-47); Lymphocytes # 0.5 10^3/uL (0.8-4.8); Lymphocytes % 15.7 %; Mean Corpuscular HGB Conc 33.8 g/dL (30-55); Mean Corpuscular Hemoglobin 30.7 pg (27-33); Mean Corpuscular Volume 90.7 fl (85-98); Mean Platelet Volume 9.8 fL (7.4-10.4); Monocytes # 0.3 10^3/uL (0.2-0.9); Monocytes % 8.4 %; Neutrophils # 2.53 10^3/uL (1.8-7.7); Neutrophils % 73.5 %; Nucleated Red Blood Cells % 0 %; Platelet Count 151 10^3/cmm (157-399); Red Cell Distribution Width 18.1 % (12.1-15.1); White Blood Count 3.44 10^3/uL (3.29-11.43)
[2023-11-24 11:15] LABS: Alanine Aminotransferase 17 U/L (0-33); Albumin Level 3.8 g/dL (3.5-5.2); Alkaline Phosphatase 75 U/L (35-105); Anion Gap 19.1 (5-19); Aspartate Amino Transferase 20 U/L (0-32); Blood Urea Nitrogen 15 mg/dL (8-23); Calcium 8.5 mg/dL (8.5-10.5); Carbon Dioxide 23 mmol/L (22-29); Chloride 96 mmol/L (98-107); Creatinine Clr Calc Pharmacy 102.7725; Globulin 3.1 g/dL (1.3-4.6); Glomerular Filtration Rate 71.8 mL/min (90-130); Glucose 171 mg/dL (65-115); Osmolality Calculated 285 mOsm/kg (285-295); Potassium 3.1 mmol/L (3.5-5.1); Sodium 135 mmol/L (136-145); Total Bilirubin 0.4 mg/dL (0.15-1.2); Total Protein 6.9 g/dL (6.6-8.7)
== END 2023-11-24 23:59 | disposition home or self-care (01) ==
PROVIDERS: Internal Medicine Hematology & Oncology; Absent Provider Internal Medicine; PCP Registered Nurse; Visit Provider Radiology Radiation Oncology
DX: C34.90 Malignant neoplasm of unspecified part of unspecified bronchus or lung (principal); Z53.9 Procedure and treatment not carried out, unspecified reason; C79.51 Secondary malignant neoplasm of bone
CPT/HCPCS: 36591; 80053; 85025; 96375; 96413; 99214; J2405; J2469; J7030; J7050; J9181

== ENCOUNTER 2024-01-02 10:27 | Outpatient (CLI) | payer MEDICARE, SELFPAY ==
--- NOTE | 2024-01-02 10:31 | XR_ITS ---
WS: [id number] PA and lateral chest, 01/02/2024 Clinical Data: J18.9 - Pneumonia, unspecified organism Comparison: Portable chest, 08/01/2023 Findings: The left hilar mass again is seen with patchy opacity adjacent to the mass. This opacity co uld represent an enlargement of the mass or developing pneumonia or atelectasis. There is a right int ernal jugular venous catheter which ends in the superior vena cava. The heart is normal. No pneumotho rax is seen. There are no pleural effusions. The pulmonary vascularity is not increased.. XR/XR chest 2V* [id number] Impression: 1. Left hilar mass which has developed peripheral patchy opacity. 2. Satisfactory placement of right internal jugular venous catheter.
== END 2024-01-02 10:28 | disposition home or self-care (01) ==
LOC: RAD 10:28
PROVIDERS: PCP Registered Nurse; Visit Provider Registered Nurse
DX: J18.9 Pneumonia, unspecified organism (principal); R91.8 Other nonspecific abnormal finding of lung field
CPT/HCPCS: 71046

== ENCOUNTER → 2024-01-03 15:30 | Outpatient (BNVA) | payer MEDICARE, SELFPAY | PROVIDERS: PCP Registered Nurse; Visit Provider Podiatrist Foot & Ankle Surgery | DX: L60.3 Nail dystrophy (principal); I73.9 Peripheral vascular disease, unspecified; E11.40 Type 2 diabetes mellitus with diabetic neuropathy, unspecified | CPT/HCPCS: 11721 ==

== ENCOUNTER 2024-01-11 13:10 | Day surgery (SDC) | payer MEDICARE, SELFPAY ==
[2024-01-11] VITALS (7 sets, daily range): BP systolic 138–165; BP diastolic 71–83; PULSE 72–80; RESP 16–18; TEMP 36.1–36.4; O2SAT 96–100
--- NOTE | 2024-01-11 13:18 | CT_ITS ---
WS: [id number] CT-GUIDED RIGHT HIP BIOPSY INDICATION: Small cell lung cancer TECHNIQUE: Prior imaging reviewed. The procedure including risk, benefits, and complications were discussed with the patient who agreed to proceed. Timeout was performed.Using sterile technique patient was prepped and draped in the usual sterile fashion. After 1% lidocaine, using CT guidance, a 13-gauge osteocyte bone biopsy needle was advanced into the RIGHT proximal femoral lesion. Approximately 3 cores were obtained. No immediate co mplications. Anesthesia was present for sedation. CT/CT biopsy bone deep IMPRESSION: Uncomplicated RIGHT proximal femur biopsy. Pathology is pending.
[2024-01-11] MEDS: sodium chloride 0.9% 1,000 ML 30 ML IV (13:21)
[2024-01-11] MEDS: albuterol 2.5 mg/3 mL Neb INHALATION (13:36)
== END 2024-01-11 16:21 | disposition home or self-care (01) ==
PROVIDERS: Radiology Neuroradiology; PCP Registered Nurse; Visit Provider Internal Medicine Hematology & Oncology
DX: C34.91 Malignant neoplasm of unspecified part of right bronchus or lung (principal)
CPT/HCPCS: 20225; 36591; 77012; 88307; 88311; 88342; 94640; J7030; J7613

== ENCOUNTER 2024-01-16 08:30 | Oncology outpatient (recurring) (ONCR) | payer MEDICARE, SELFPAY ==
--- NOTE | 2024-01-11 12:32 | ANES.PREANE2 ---
Pre-Anesthetic Assessment Height/Weight: Height 1.7 m Operation Date: 01/11/24 13:[address] Biopsy(Right) - DOCTOR NOT ON FILE Was Beta Radha taken within 24 hours: Yes Was Clonidine taken within 24 hours: N/A Social No alcohol and No tobacco Exam alert, oriented x 3, clear to auscultation bilaterally and regular rate & rhythm Airway Submandibular: within normal limits Cervical ROM: within normal limits Mallampati: Class II Pulmonary Chronic Obstructive Pulmonary Disease and Sleep Apnea uses 1 L oxygen all the time. lays flat to sleep at night. Does not have a CPAP. only able to walk to bathroom and back to chair due to SOB CV/HEM Atrial Fibrillation, Arrythmia, Hypertension and Myocardial Infarction newer to blood thinner. patient poor historian. has 2 stents in her heart 1996. last saw cardiology in november . echo 2022 preserved EF. patient reports occasional chest pain but it has been a while ( months ). None reported Hepatic None reported GI Gastroesophageal Reflux Disease controlled with medication Metabolic Diabetes Mellitus and Morbid Obesity [facility] [place] None reported chronic pain in shoulder and knee Neuropsych Anxiety and Depression Anesthetic Plan ASA status: 3 Anesthesia: Anesthesia Evaluation, General and MAC Risk of > 500 ml blood loss (7ml/kg in children): Yes, adequate IV access and fluids planned Medications/Allergies Home Medications Medication Instructions Recorded Confirmed Last Taken Type aspirin 81 mg tablet,delayed 81 mg PO QAM 06/21/19 01/09/24 01/06/24 History release cetirizine 10 mg tablet 10 mg PO QAM 06/21/19 01/09/24 01/09/24 History Diabetic Shoes #1 ea 03/17/21 01/03/24 Unknown Rx albuterol sulfate 2.5 mg/3 mL 2.5 mg (3 mL) inhalation Q4H PRN 05/25/21 01/09/24 08/17/23 Rx (0.083 %) solution for nebulization bronchospasm 30 days #180 mL blood sugar diagnostic #100 ea 01/03/22 01/03/24 Unknown Rx lancets (Accu-Chek Softclix #200 ea 01/03/22 01/03/24 Unknown Rx Lancets) nitroglycerin 0.4 mg sublingual 0.4 mg sublingual Q5M PRN chest 02/24/22 01/09/24 1 Year Ago Rx tablet pain #25 tabs ~08/01/22 Diabetic Shoes and 3 inserts #1 ea 12/28/22 01/03/24 Unknown Rx pen needle, diabetic 32 gauge x #100 ea 05/16/23 01/03/24 Unknown Rx 11/08 (Comfort EZ Pen [place]) albuterol sulfate 90 mcg/actuation 2 puff inhalation Q6H PRN 05/17/23 01/09/24 09/06/23 History aerosol inhaler Shortness Of Breath hydroxychloroquine 200 mg tablet 200 mg PO BID #180 tabs 05/23/23 01/09/24 01/09/24 Rx hydralazine 50 mg tablet 50 mg PO BID 06/16/23 01/09/24 01/09/24 History ondansetron HCl 8 mg tablet 8 mg PO Q8H PRN nausea and 09/05/23 01/09/24 Unknown Rx vomiting #30 tabs prochlorperazine maleate 5 mg 5 mg PO Q6H PRN nausea #30 tabs 09/05/23 01/09/24 Unknown Rx tablet (Compazine) cholecalciferol (vitamin D3) 1,250 See Rx Instructions .Route 11/06/23 01/09/24 01/03/24 Rx mcg (50,000 unit) capsule .COMPLEX #12 caps tiotropium 2.5 mcg-olodaterol 2.5 2 puff inhalation DAILY #4 grams 11/10/23 01/09/24 01/09/24 Rx mcg/actuation mist for inhalation (Stiolto Respimat) amlodipine 10 mg tablet See Rx Instructions .Route 11/14/23 01/09/24 01/09/24 Rx .COMPLEX #90 tabs PORTABLE OXYGEN CONCENTRATOR AND #1 ea 11/16/23 01/03/24 Unknown Rx SUPPLIES potassium chloride 20 mEq 20 meq PO DAILY #5 tabs 11/16/23 01/09/24 01/09/24 Rx tablet,extended release duloxetine 20 mg capsule,delayed 20 mg PO BID 90 days #180 caps 11/24/23 01/09/24 01/09/24 Rx release apixaban 5 mg tablet (Eliquis) 5 mg PO BID 12/21/23 01/09/24 01/06/24 History ezetimibe 10 mg tablet 10 mg PO DAILY 0601/09/24 01/08/24 History losartan 100 1 tab PO DAILY 12/21/23 01/09/24 01/09/24 History mg-hydrochlorothiazide 25 mg tablet metoprolol tartrate 50 mg tablet 100 mg PO BID 12/21/23 01/09/24 01/09/24 History rosuvastatin 40 mg tablet 40 mg PO DAILY 12/21/23 01/09/24 01/09/24 History pantoprazole 40 mg tablet,delayed See Rx Instructions .Route 01/02/24 01/09/24 01/09/24 Rx release .COMPLEX #90 tabs lorazepam 1 mg tablet (Ativan) 1 mg PO DAILY PRN anxiety 1 day #1 01/08/24 01/09/24 Unknown Rx tab furosemide 40 mg tablet 40 mg PO DAILY 01/09/24 01/09/24 01/09/24 History Allergies Allergy/AdvReac Type Severity Reaction Status Date / Time Sulfa (Sulfonamide Allergy Unknown Verified 01/03/24 15:26 Antibiotics) sulfamethoxazole Allergy itching Verified 01/03/24 15:26 [From Bactrim] trimethoprim [From Bactrim] Allergy itching Verified 01/03/24 15:26 [facility] Anesthesia Medical History Port-A-Cath in place 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 Mixed connective tissue disease Advanced directives, counseling/discussion Former heavy cigarette smoker (20-39 per day) Quit in 2009 Aortic insufficiency dx 10/14/02 Dr Kam Martinez Arthralgia of both knees Venous insufficiency of both lower extremities Opioid contract exists Personal history of nicotine dependence Quit 2009 History of prior cigarette smoking Obesity Hypothyroidism (acquired) Chronic joint pain Anxiety and depression Hyperlipidemia Common migraine with intractable migraine Left Achilles tendinitis Back pain, lumbosacral Type 2 diabetes mellitus Essential hypertension COPD (chronic obstructive pulmonary disease) Gastroesophageal reflux disease without esophagitis Surgical History Stented coronary artery 2 stents done 02/16/96 in [place] History of knee replacement 2009 History of delivery Family History Other CAD (coronary artery disease) Cancer Diabetes Denies family history of Rheumatoid arthritis Lupus Hyperlipidemia Chronic kidney disease (CKD) Hypertension Stroke Social History Smoking and tobacco/nicotine status: former use of tobacco/nicotine Quit status (tobacco/nicotine): has quit using Year quit tobacco: 2009 Former quit date comment: 3 ppd X 37 years Alcohol intake: never Substance/Drug Use: never Lives independently: No Household members: spouse Marital status: Current occupational status: unemployed Do you think of yourself as: Straight/Heterosexual Current gender identity: Female Data Anesthesia Cardiac Studies: Echocardiogram 09/01/22 Echocardiogram Ultrasound 11/18/20 Sestamibi Stress Test (Cardiology) 01/12/21 Cardiac Event Monitor 06/16/23
[2024-01-11 12:50] LABS: Glucose Point of Care 110 mg/dL (70-110)
[2024-01-11 13:02] LABS: INR 0.95 (0.8-1.2)
[2024-01-11 13:34] LABS: Anion Gap 17.1 (5-19); Blood Urea Nitrogen 25 mg/dL (8-23); Carbon Dioxide 25 mmol/L (22-29); Chloride 100 mmol/L (98-107); Glomerular Filtration Rate 49.7 mL/min (90-130); Glucose 116 mg/dL (65-115); Osmolality Calculated 291 mOsm/kg (285-295); Potassium 4.1 mmol/L (3.5-5.1); Sodium 138 mmol/L (136-145)
--- NOTE | 2024-01-16 09:15 | PETR_ITS ---
PROCEDURE INFORMATION: Exam: PET/CT Skull Base to Mid-thigh Exam date and time: 01/16/2024 9:00 AM Age: 68 years old Clinical indication: Restaging of lung cancer; Prior surgery; Surgery date: 6+ months; Surgery type: Port, heart stents, tubal. LABS AND CLINICAL REPORTS: Glucose: 166 mg/dl Treatment strategy for malignancy (PET staging): Restaging TECHNIQUE: Imaging protocol: Following at least four-hour fasting and following the injection of radiopharmaceutical, low dose CT images were obtained. Then, PET images were obtained. Attenuation corrected images were constructed using the CT scan. Fused images of PET and CT were reviewed. The standardized uptake values (SUV) reported below are maximum values within a region of interest, expressed in gm/ml. Exam includes orbital meatal line to mid-thigh. Radiopharmaceutical: 13.65 mCi F-18 FDG (Fluorodeoxyglucose), IV. Time of imaging post radiopharmaceutical administration: 1 hour Injection site: Right antecubital vein COMPARISON: PET skull to thigh INIT [id number] 07/25/2023, CT chest abdomen pelvis 09/18/2023 FINDINGS: Port catheter placed via the right internal jugular vein terminates in the right atrium. Brain: Visualized brain has normal physiologic uptake. Pharynx: No abnormal uptake. Larynx: No abnormal uptake. Lungs, pleura and trachea: New large heterogenous consolidation in the left upper lobe and superior segment of the left lower lobe with the highest uptake of 10 SUV is suggestive of acute/subacute postradiation pneumonitis or pneumonia. No discrete nodules or masses. No pleural effusion. Heart: Normal physiologic uptake. There is no cardiomegaly. Coronary artery calcification is present. There is no pericardial effusion. Mediastinal space: See below in lymph nodes . There is a small hiatal hernia. Liver: No abnormal uptake. Gallbladder and biliary ducts: No abnormal uptake. No calcified gallstones. Pancreas: No abnormal uptake. Spleen: No abnormal uptake. No splenomegaly. Adrenal glands: No abnormal uptake. No nodules. Kidneys and ureters: Normal physiologic uptake. No hydronephrosis. Stable 9 x 4 mm nonobstructive stone in the upper [place] of the left kidney. Stomach and bowel: No abnormal uptake. Mild diverticulosis of the sigmoid colon. Vasculature: No abnormal uptake. No aortic aneurysm. Lymph nodes: Previously present metastatic aortopulmonary window lymphadenopathy decreased from 3.9 x 2.8 cm/23.6 SUV to 2.2 x 1 cm/3.7 SUV compatible with complete metabolic response (axial image 74). Previously present left hilar/perihilar FDG avid mass has completely resolved. No FDG avid lymphadenopathy in the head, neck, chest, abdomen, pelvis, and extremities. Stable sequela of exposure to granulomatous disease with calcified granulomas in normal size of left paratracheal and left hilar lymph nodes. Skeleton: No abnormal uptake in the visualized axial and appendicular skeleton. Soft tissues: No abnormal uptake in the visualized head, neck, chest, abdomen, pelvis, and extremities. PET/PET skull to thigh SUBS [id number] IMPRESSION: 1. Complete metabolic response to treatment with no abnormal radiotracer uptake in the left perihilar lung and within the small residual of treated left mediastinal lymphadenopathy. No evidence of distant FDG avid metastatic disease. 2. Large heterogenous consolidation in the left lung with intense uptake to 10 SUV is suggestive of acute/subacute postradiation pneumonitis or pneumonia for correlation with patient's treatment history and clinical symptoms.
== END 2024-01-24 23:59 | disposition home or self-care (01) ==
LOC: ONCMED 01-22 11:33
PROVIDERS: Anesthesiology; Absent Provider Internal Medicine; PCP Registered Nurse; Visit Provider Internal Medicine Hematology & Oncology
DX: R91.1 Solitary pulmonary nodule; Z53.9 Procedure and treatment not carried out, unspecified reason; C34.92 Malignant neoplasm of unspecified part of left bronchus or lung; R91.8 Other nonspecific abnormal finding of lung field
CPT/HCPCS: 36416; 78815; 80048; 81000; 82962; 85610; A9552; J2250; J2704; J3010; J3490

== ENCOUNTER 2024-01-18 16:36 | Inpatient (IN) | payer MEDICARE, SELFPAY ==
[2024-01-18] VITALS (17 sets, daily range): BP systolic 104–148; BP diastolic 65–100; PULSE 102–153; RESP 14–22; TEMP 36.6–36.9; O2SAT 91–100; BMI 45.9
--- NOTE | 2024-01-18 16:50 | XRR_ITS ---
PROCEDURE INFORMATION: Exam: XR Chest Exam date and time: 01/18/2024 5:18 PM Age: 68 years old Clinical indication: Pain; Chest pressure; Prior surgery; Surgery date: 1-6 months; Surgery type: Port; Additional info: Cp TECHNIQUE: Imaging protocol: Radiologic exam of the chest. Views: 1 view. COMPARISON: CR XR chest 2V* [id number] 01/02/2024 10:38 AM FINDINGS: Lungs: Of left upper lobe parenchymal densities consistent with pneumonia. This finding shows increased volume since prior examination. Pleural spaces: Unremarkable. No pleural effusion. No pneumothorax. Heart/Mediastinum: Unremarkable. No cardiomegaly. Bones/joints: Unremarkable. There is a right side central line extending into the right atrium . XR/XR chest 1V portable [id number] IMPRESSION: 1. Right upper lobe pneumonia increased in volume since prior examination. 2. Right side central line extends to the right atrium
--- NOTE | 2024-01-18 16:51 | ECG_ITS ---
[facility] Test Date: 2024-01-18 Pat Name: Janet Pillai Department: Room: Gender: Female Puncher And Fastener: : 1955 Requested By: Sampson Sifuentes Order Number: [id number] Tomy MD: Donell Tavares M.D. Measurements Intervals [place] Rate: 152 P: 0 AK: 0 QRS: -56 QRSD: 188 T: 180 QT: 315 QTc: 501 Interpretive Statements ATRIAL FLUTTER/TACHYCARDIA WITH RAPID VENTRICULAR RESPONSE RIGHT BUNDLE BRANCH BLOCK [120+ ms QRS DURATION, UPRIGHT V1, 40+ ms S IN I/aVL/V4/V5/V6] LEFT ANTERIOR FASCICULAR BLOCK [QRS AXIS <= -45, QR IN I, RS IN II] MODERATE T-WAVE ABNORMALITY, CONSIDER LATERAL ISCHEMIA [-0.1+ mV T-WAVE IN I/aVL/V5/V6] CRITICAL TEST RESULT Compared to ECG 08/01/2023 06:48:22 T-wave abnormality now present Possible ischemia now present Ectopic atrial rhythm no longer present Electronically Signed On 01-19-2024 0:58:50 CDT by Donell Tavares M.D. [id number]
--- NOTE | 2024-01-18 16:55 | PC.NURSE ---
pt on bedside pvc monitor
[2024-01-18] MEDS: sodium chloride 0.9% 1,000 ML 999 ML IV (17:00)
[2024-01-18] MEDS: dilTIAZem 5 mg/mL SDV 5 mL 15 MG IVP (17:01)
--- NOTE | 2024-01-18 17:01 | ED_ITS ---
HPI - Dizziness 2 General: Chief Complaint: Dizziness Stated Complaint: low o2 Time Seen by Provider: 01/18/24 16:49 Source: patient Mode of arrival: ambulatory Limitations: no limitations History of Present Illness: HPI Narrative: 68-year-old female who states over the l ast 2 to 3 days she has been having some weakness fatigue and dizziness had some mild dyspnea as well. Patient states she has felt like her hearts been racing she is in atrial flutter here with heart rate in the 150s. She denies any chest pain. She has a history of small cell lung cancer. She is not currently on chemo. 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 Mixed connective tissue disease Advanced directives, counseling/discussion Former heavy cigarette smoker (20-39 per day) Quit in 2009 Aortic insufficiency dx 10/14/02 Dr Kam Martinez Arthralgia of both knees Venous insufficiency of both lower extremities Opioid contract exists Personal history of nicotine dependence Quit 2010 History of prior cigarette smoking Obesity Hypothyroidism (acquired) Chronic joint pain Anxiety and depression Hyperlipidemia Common migraine with intractable migraine Left Achilles tendinitis Back pain, lumbosacral Type 2 diabetes mellitus Essential hypertension COPD (chronic obstructive pulmonary disease) Gastroesophageal reflux disease without esophagitis Surgical History Stented coronary artery 2 stents done 02/16/96 in [place] History of knee replacement 2009 History of delivery Family History Other CAD (coronary artery disease) Cancer Diabetes Denies family history of Rheumatoid arthritis Lupus Hyperlipidemia Chronic kidney disease (CKD) Hypertension Stroke Social History Smoking and tobacco/nicotine status: former use of tobacco/nicotine Quit status (tobacco/nicotine): has quit using Year quit tobacco: 2009 Former quit date comment: 3 ppd X 37 years Alcohol intake: never Substance/Drug Use: never Lives independently: No Household members: spouse Marital status: Current occupational status: unemployed Do you think of yourself as: Straight/Heterosexual Current gender identity: Female Physical Exam 2 Const: COMMON NORMALS: patient oriented x3 HENMT: COMMON NORMALS: normocephalic and atraumatic HEAD & SCALP: n ormocephalic and atraumatic Neck/C-Spine: COMMON NORMALS: full ROM and supple Chest: COMMONS NORMALS: normal inspection of the chest and normal palpation of entire chest wall Resp: COMMON NORMALS: normal respiratory effort, No retractions, No use of accessory muscles and clear to auscultation bilaterally AUSCULTATION: clear to auscultation bilaterally Cardio: RATE: tachycardic RHYTHM: abnormal rhythm irregularly irregular Extremity: COMMON NORMALS: normal to inspection and full ROM Neuro: COMMON NORMALS: patient oriented x3, moves all extremities and no focal motor deficits Psych: COMMON NORMALS: mental status grossly normal, Normal thought process present and cooperative THOUGHT PROCESS: Normal thought process present Skin: COMMON NORMALS: no rashes or lesions noted and no wounds GENERAL SKIN EXAM: no rashes or lesions noted Course 2 Vital Signs: Vital signs: Vital Signs Temperature 98 F 01/18/24 16:40 Pulse Rate 110 H 01/18/24 18:41 Respiratory Rate 21 H 01/18/24 18:41 Blood Pressure 122/75 01/18/24 18:41 Pulse Oximetry 96 01/18/24 18:41 Oxygen Delivery Me thod Room Air 01/18/24 16:40 MDM - Dizziness Medical Decision Making Patient presents here with atrial flutter with RVR rate has improved on Cardizem her heart rate is now 110. CT shows likely pneumonia versus pneumonitis I spoke to the hospitalist and will admit at this time. Medical Records I reviewed the patient's medical records. Lab Data I reviewed the patient's lab results. 01/18/24 16:50 01/18/24 16:50 Radiology Impressions Chest X-Ray 01/18/24 16:50 IMPRESSION: 1. Right upper lobe pneumonia increased in volume since prior examination. 2. Right side central line extends to the right atrium Chest CTA 01/18/24 17:55 IMPRESSION: 1. No pulmonary embolus. 2. Dense consolidation within the left upper lobe and superior segment of the left lower lobe, similar compared to PET-CT January 16, 2024. Findings may represent pneumonia or acute/subacute postradiation pneumonitis. COMMENTS: The presence of pulmonary emphysema on CT is an independent risk factor for lung cancer. In the absence of a history or active diagnosis of lung cancer, it is recommended that this patient with emphysema be evaluated for enrollment in a low dose CT lung cancer screening program. Laboratory Results WBC 10.52 10^3/uL (3.29-11.43) 01/18/24 16:50 RBC 3.79 10^6/uL (3.85-5.65) L 01/18/24 16:50 Hgb 10.80 g/dL (11.27-16.99) L 01/18/24 16:50 Hct 34.3 % (36-47) L 01/18/24 16:50 MCV 90.5 fl (85-98) 01/18/24 16:50 MCH 28.5 pg (27-33) 01/18/24 16:50 MCHC 31.5 g/dL (30-55) 01/18/24 16:50 RDW 16.0 % (12.1-15.1) H 01/18/24 16:50 Plt Count 259 10^3/cmm (157-399) 01/18/24 16:50 MPV 10.4 fL (7.4-10.4) 01/18/24 16:50 Neut % (Auto) 79.9 % 01/18/24 16:50 Lymph % (Auto) 9.9 % 01/18/24 16:50 [place] % (Auto) 7.5 % 01/18/24 16:50 Eos % (Auto) 1.4 % 01/18/24 16:50 Baso % (Auto) 0.7 % 01/18/24 16:50 Neut # (Auto) 8.41 10^3/uL (1.8-7.7) H 01/18/24 16:50 Lymph # (Auto) 1.0 10^3/uL (0.8-4.8) 01/18/24 16:50 [place] # (Auto) 0.8 10^3/uL (0.2-0.9) 01/18/24 16:50 Eos # (Auto) 0.2 10^3/uL (0.0-0.8) 01/18/24 16:50 Baso # (Auto) 0.1 10^3/uL (0.0-0.1) 01/18/24 16:50 Nucleated RBC % (auto) 0 % 01/18/24 16:50 Nucleated RBCs # 0.0 /100WBC 01/18/24 16:50 PT 13.00 SECONDS (12.1-14.9) 01/18/24 16:50 INR 0.95 (0.8-1.2) 01/18/24 16:50 D-Dimer 0.91 ug/mLFEU (0-0.59) H 01/18/24 16:50 Sodium 139 mmol/L (136-145) 01/18/24 16:50 Potassium 3.3 mmol/L (3.5-5.1) L 01/18/24 16:50 Chloride 95 mmol/L (98-107) L 01/18/24 16:50 Carbon Dioxide 28 mmol/L (22-29) 01/18/24 16:50 Anion Gap 19.3 (5-19) H 01/18/24 16:50 BUN 26 mg/dL (8-23) H 01/18/24 16:50 Creatinine 1.1 mg/dL (0.5-0.9) H 01/18/24 16:50 GFR Calculation 49.7 mL/min (90-130) L 01/18/24 16:50 Glucose 133 mg/dL (65-115) H 01/18/24 16:50 Calculated Osmolality 295 mOsm/kg (285-295) 01/18/24 16:50 Calcium 9.3 mg/dL (8.5-10.5) 01/18/24 16:50 Total Bilirubin 0.2 mg/dL (0.15-1.2) 01/18/24 16:50 AST 15 U/L (0-32) 01/18/24 16:50 ALT 25 U/L (0-33) 01/18/24 16:50 Alkaline Phosphatase 75 U/L (35-105) 01/18/24 16:50 Troponin T Baseline 39 ng/L (0-10) H 01/18/24 16:50 Troponin T 120 Minute 32.24 ng/L (0-10) H 01/18/24 18:39 Delta Troponin T -6.76 ABS# (0-10) L 01/18/24 18:39 Total Protein 6.8 g/dL (6.6-8.7) 01/18/24 16:50 Albumin 3.7 g/dL (3.5-5.2) 01/18/24 16:50 Globulin 3.1 g/dL (1.3-4.6) 01/18/24 16:50 TSH 2.11 uIU/mL (0.27-4.20) 01/18/24 16:50 Urine Color Yellow (Yellow) 01/18/24 17:35 Urine Appearance Clear (CLEAR) 01/18/24 17:35 Urine pH 5 (5-7) 01/18/24 17:35 Ur Specific Laura 1.010 (1.005-1.030) 01/18/24 17:35 Urine Protein Neg (Negative) 01/18/24 17:35 Urine Glucose (UA) Norm (Normal) 01/18/24 17:35 Urine Ketones Negative (Negative) 01/18/24 17:35 Urine Blood Neg (Negative) 01/18/24 17:35 Urine Nitrate Negative (Negative) 01/18/24 17:35 Urine Bilirubin Neg (Negative) 01/18/24 17:35 Urine Urobilinogen Norm mg/dL (Negative) 01/18/24 17:35 Ur Leukocyte Esterase Negative (Negative) 01/18/24 17:35 All radiology interpretation(s) finalized by discharge EKG Data EKG 1: I personally reviewed and interpreted this EKG as follows: EKG interpretation date: 01/18/24 EKG interpretation time: 16:51 Interpretation: Is a withatrial flutter hr [address] elevation qrs 188 qtc 401 Critical Care Time 2 Critical Care Time: Critical Care Time: Yes Total Critical Care Time: 45 Attestation: The high probability of a clinically significant, sudden or life threatening deterioration of the patient's cv system(s) required my full and direct attention, intervention and personal management. The critical care time is as shown. This time is in addition to time spent performing any reported procedures but includes the following: [x] Data and vital sign review and interpretation [x] Patient assessment, examination and intervention [x] Documentation [x] Medication orders and management Discharge Plan Discharge Patient Disposition: Admitted As Inpatient Clinical Impression: Atrial flutter, Pneumonia Condition: Stable Prescriptions: No Action aspirin 81 mg tablet,delayed release (DR/EC) 81 mg PO QAM Hold Instructions: Resume on 01/13/24. nitroglycerin 0.4 mg tablet, sublingual 0.4 mg sublingual Q5M PRN (Reason: chest pain) Qty: 25 2RF Rx Instructions: do not exceed 3 doses per episode (DME) Diabetic Shoes See Rx Instructions .ROUTE .MEDSUPPLY Qty: 1 0RF Rx Instructions: As directed, with 3 pairs of inserts [facility] hydroxychloroquine 200 mg tablet 200 mg PO BID Qty: 180 1RF hydralazine 50 mg tablet 50 mg PO BID (DME) pen needle, diabetic [Comfort EZ Pen Dickinson] 32 gauge x 5/16 needle See Rx Instructions .Route Qty: 100 0RF Rx Instructions: daily Stiolto Respimat 2.5-2.5 mcg/actuation mist 2 puff inhalation DAILY Qty: 4 3RF (DME) PORTABLE OXYGEN CONCENTRATOR AND SUPPLIES See Rx Instructions .Route .MEDSUPPLY Qty: 1 0RF Rx Instructions: As directed metoprolol tartrate 50 mg tablet 100 mg PO BID ezetimibe 10 mg tablet 10 mg PO DAILY rosuvastatin 40 mg tablet 40 mg PO DAILY Eliquis 5 mg tablet 5 mg PO BID Hold Instructions: Resume on 01/13/24. losartan-hydrochlorothiazide 100-25 mg tablet 1 tab PO DAILY albuterol sulfate 90 mcg/actuation HFA aerosol inhaler 2 puff inhalation Q6H PRN (Reason: Shortness Of Breath) ondansetron HCl 8 mg tablet 8 mg PO Q8H PRN (Reason: nausea and vomiting) Qty: 30 0RF Rx Instructions: PROJECT MANAGEMENT DIRECTOR TOMORROW (DME) blood sugar diagnostic Strip See Rx Instructions .Route Qty: 100 0RF Rx Instructions: use to check blood sugars once daily (DME) lancets [Accu-Chek Softclix Lancets] [facility] See Rx Instructions .Route Qty: 200 0RF Rx Instructions: use to check blood sugar once daily (DME) Diabetic Shoes and 3 inserts See Rx Instructions .Route .MEDSUPPLY Qty: 1 0RF Rx Instructions: As directed by HOME cholecalciferol (vitamin D3) 1,250 mcg (50,000 unit) capsule See Rx Instructions .ROUTE .COMPLEX Qty: 12 1RF Dose Instruction: TAKE ONE CAPSULE BY MOUTH EVERY monday AT 9am Rx Instructions: TAKE ONE CAPSULE BY MOUTH EVERY monday AT 9am amlodipine 10 mg tablet See Rx Instructions .ROUTE .COMPLEX Qty: 90 3RF Dose Instruction: TAKE ONE TABLET BY MOUTH EVERY DAY Rx Instructions: TAKE ONE TABLET BY MOUTH EVERY DAY potassium chloride 20 mEq tablet extended release 20 meq PO DAILY Qty: 5 0RF Rx Instructions: Patient to take dose with lasix for 5 days. duloxetine 20 mg capsule,delayed release(DR/EC) 20 mg PO BID 90 Days Qty: 180 0RF pantoprazole 40 mg tablet,delayed release (DR/EC) See Rx Instructions .ROUTE .COMPLEX Qty: 90 0RF Dose Instruction: TAKE ONE TABLET BY MOUTH DAILY FOR 90 DAYS Rx Instructions: TAKE ONE TABLET BY MOUTH DAILY FOR 90 DAYS furosemide 40 mg tablet 40 mg PO DAILY Referrals: Teresa Clifford, DIONI [Primary Care Provider] - Coding Level of Care Code ED Practical Nursing Faculty for [facility]
[2024-01-18 17:05] LABS: Basophils # 0.1 10^3/uL (0.0-0.1); Basophils % 0.7 %; Eosinophils # 0.2 10^3/uL (0.0-0.8); Eosinophils % 1.4 %; Hematocrit 34.3 % (36-47); Lymphocytes % 9.9 %; Mean Corpuscular HGB Conc 31.5 g/dL (30-55); Mean Corpuscular Hemoglobin 28.5 pg (27-33); Mean Corpuscular Volume 90.5 fl (85-98); Mean Platelet Volume 10.4 fL (7.4-10.4); Monocytes # 0.8 10^3/uL (0.2-0.9); Monocytes % 7.5 %; Neutrophils # 8.41 10^3/uL (1.8-7.7); Neutrophils % 79.9 %; Nucleated Red Blood Cells % 0 %; Platelet Count 259 10^3/cmm (157-399); Red Blood Count 3.79 10^6/uL (3.85-5.65); White Blood Count 10.52 10^3/uL (3.29-11.43)
[2024-01-18] MEDS: dilTIAZem 100 MG in sodium chloride 0.9% (add-van) 100 ML IV (17:13)
[2024-01-18 17:16] LABS: INR 0.95 (0.8-1.2)
[2024-01-18 17:37] LABS: Troponin(5th) Baseline 39 ng/L (0-10)
[2024-01-18 17:41] LABS: Add Urine Microscopic? NO; Charge for UA Resulting for Rev
[2024-01-18 17:44] LABS: D Dimer 0.91 ug/mLFEU (0-0.59)
[2024-01-18 17:52] LABS: Urine Appearance Clear (CLEAR); Urine Color Yellow (Yellow)
[2024-01-18 17:53] LABS: Bilirubin Urine Neg (Negative); Blood Urine Neg (Negative); Glucose Urine UA Norm (Normal); Ketones Urine Negative (Negative); Leukocyte Esterase Urine Negative (Negative); Nitrate Urine Negative (Negative); Protein Urine Neg (Negative); Urobilinogen Urine Norm (Negative); pH Urine 5 (5-7)
--- NOTE | 2024-01-18 17:55 | CTR_ITS ---
PROCEDURE INFORMATION: Exam: CTA Chest With Contrast Exam date and time: 01/18/2024 6:22 PM Age: 68 years old Clinical indication: Dyspnea; Additional info: SOB TECHNIQUE: Imaging protocol: Computed tomographic angiography of the chest with contrast. Exam focused on the arteries. 3D rendering (Not supervised by radiologist): MIP and/or 3D reconstructed images were created by the technologist. Radiation optimization: All CT scans at this facility use at least one of these dose optimization techniques: automated exposure control; mA and/or kV adjustment per patient size (includes targeted exams where dose is matched to clinical indication); or iterative reconstruction. Contrast material: OMNI 350; Contrast volume: 82 ml; Contrast route: INTRAVENOUS (IV); COMPARISON: PT PET skull to thigh SUBS [id number] 01/16/2024 9:00 AM RADIATION DOSE METRICS: Total DLP (mGy-cm): 571.38 FINDINGS: Pulmonary arteries: No pulmonary embolus. Aorta: Unremarkable. No aortic aneurysm. No aortic dissection. Other arteries: Moderate atherosclerotic calcifications. Lungs: Dense consolidation within the left upper lobe and superior segment of the left lower lobe, similar compared to PET-CT January 16, 2024. Centrilobular and paraseptal emphysema. Pleural spaces: Unremarkable. No pneumothorax. No pleural effusion. Heart: Cardiomegaly. Coronary arteries: Coronary artery calcifications. Lymph nodes: Unchanged aortopulmonary window lymphadenopathy measuring approximately 2.6 x 1.4 cm in long and short axis. Liver: Scattered calcified granulomas within the liver and spleen. Kidneys and ureters: Numerous bilateral nonobstructing renal calculi. For example there is a 0.8 cm calculus within the upper pole of the left kidney. Bones/joints: Unremarkable. No acute fracture. Soft tissues: Unremarkable. CT/CT angio chest PE protcl [id number] IMPRESSION: 1. No pulmonary embolus. 2. Dense consolidation within the left upper lobe and superior segment of the left lower lobe, similar compared to PET-CT January 16, 2024. Findings may represent pneumonia or acute/subacute postradiation pneumonitis. COMMENTS: The presence of pulmonary emphysema on CT is an independent risk factor for lung cancer. In the absence of a history or active diagnosis of lung cancer, it is recommended that this patient with emphysema be evaluated for enrollment in a low dose CT lung cancer screening program.
[2024-01-18 18:06] LABS: Alanine Aminotransferase 25 U/L (0-33); Albumin Level 3.7 g/dL (3.5-5.2); Alkaline Phosphatase 75 U/L (35-105); Anion Gap 19.3 (5-19); Aspartate Amino Transferase 15 U/L (0-32); Blood Urea Nitrogen 26 mg/dL (8-23); Calcium 9.3 mg/dL (8.5-10.5); Carbon Dioxide 28 mmol/L (22-29); Chloride 95 mmol/L (98-107); Creatinine Clr Calc Pharmacy 71.2851; Globulin 3.1 g/dL (1.3-4.6); Glomerular Filtration Rate 49.7 mL/min (90-130); Glucose 133 mg/dL (65-115); Osmolality Calculated 295 mOsm/kg (285-295); Potassium 3.3 mmol/L (3.5-5.1); Sodium 139 mmol/L (136-145); Thyroid Stimulating Hormone 2.11 uIU/mL (0.27-4.20); Total Bilirubin 0.2 mg/dL (0.15-1.2); Total Protein 6.8 g/dL (6.6-8.7)
[2024-01-18] MEDS: sodium chloride 0.9% 500 ML 999 ML IV (18:07)
[2024-01-18] MEDS: iohexol 350 mg/mL 500 mL Btl (per mL) IV (18:33)
--- NOTE | 2024-01-18 18:40 | PC.NURSE ---
Assumed care from Kelly BOWENS at shift change.
--- NOTE | 2024-01-18 18:46 | PC.NURSE ---
Dr Sifuentes notified of maxed rate on Cardizem; no further orders received at this time.
--- NOTE | 2024-01-18 18:50 | ECG_ITS ---
[facility] Test Date: 2024-01-18 Pat Name: Janet Pillai Department: Room: Gender: Female Pharmacy Messenger: : [phone] Requested By: Sampson Sifuentes Order Number: [id number] Tomy MD: Donell Tavares M.D. Measurements Intervals Spring Rate: 116 P: 0 NC: 0 QRS: -61 QRSD: 178 T: -76 QT: 374 QTc: 521 Interpretive Statements ATRIAL FLUTTER/TACHYCARDIA WITH RAPID VENTRICULAR RESPONSE LEFT AXIS DEVIATION [QRS AXIS < -30] RIGHT BUNDLE BRANCH BLOCK [120+ ms QRS DURATION, UPRIGHT V1, 40+ ms S IN I/aVL/V4/V5/V6] MODERATE T-WAVE ABNORMALITY, CONSIDER LATERAL ISCHEMIA [-0.1+ mV T-WAVE IN I/aVL/V5/V6] Compared to ECG 01/18/2024 16:51:19 Left-axis deviation now present Left anterior fascicular block no longer present T-wave abnormality still present Possible ischemia still present Electronically Signed On 01-19-2024 1:11:23 CDT by Donell Tavares M.D. [email or web address]
[2024-01-18 19:06] LABS: Troponin 5 2HR 32.24 ng/L (0-10)
[2024-01-18 19:09] LABS: Troponin 5 2HR Delta -6.76 ABS# (0-10)
--- NOTE | 2024-01-18 19:11 | P.HP_ITS ---
Providers/Chief Complaint 2 Primary Care Provider: DIONI Bruno Chief Complaint: low o2 History of Present Illness Janet Pillai is a 68 year old female currently on radiotherapy for small cell lung cancer presented with chief complaint of generalized weakness fatigue and shortness of breath. In the ER she was diagnosed with A-fib with RVR , CT chest did not show any PE, D-dimer not remarkable for her age and cancer, currently she is on Cardizem drip, stays in RVR, CT chest also showing changes concerning postradiation pneumonitis versus pneumonia she received antibiotics,. Patient is stating that she has finished her chemotherapy and rounds of radiotherapy, she has not been told about the prognosis as per Dr. Jenkisn, stating that she is present to the hospital for last 2 to 3 days of worsening of shortness of breath, she has not noticed any fever, nausea vomiting or chest pain but endorsing productive cough brown sputum production, patient is stating that she was visiting someone in [place] when she became short of breath and got intubated at [facility], I have requested records, at the time of my evaluation she is on Cardizem drip, heart rate in 116 A-fib RVR no active chest pain. Blood pressure stable. Pleasant cooperative Currently she is on room air. Patient is stating that her cancer has spread to her hip bone Review of Systems 2 Const: Denies: fever(s) Eyes: Denies: change in vision ENMT: Denies: throat pain Card: Denies: chest pain Resp: Reports: dyspnea GI: Denies: abdominal pain : Denies: flank pain Musc: Denies: neck pain Medications/Allergies Home Medications Medication Instructions Recorded Confirmed Last Taken Type aspirin 81 mg tablet,delayed 81 mg PO QAM 06/21/19 01/11/24 01/09/24 History release Diabetic Shoes #1 ea 03/17/21 01/11/24 Unknown Rx blood sugar diagnostic #100 ea 01/03/22 01/11/24 Unknown Rx lancets (Accu-Chek Softclix #200 ea 01/03/22 01/11/24 Unknown Rx Lancets) nitroglycerin 0.4 mg sublingual 0.4 mg sublingual Q5M PRN chest 02/24/22 01/11/24 01/10/24 Rx tablet pain #25 tabs Diabetic Shoes and 3 inserts #1 ea 12/28/22 01/11/24 Unknown Rx pen needle, diabetic 32 gauge x #100 ea 05/16/23 01/11/24 Unknown Rx /16 (Comfort EZ Pen [place]elope) albuterol sulfate 90 mcg/actuation 2 puff inhalation Q6H PRN 05/17/23 01/11/24 09/06/23 History aerosol inhaler Shortness Of Breath hydroxychloroquine 200 mg tablet 200 mg PO BID #180 tabs 05/23/23 01/11/24 01/10/24 Rx hydralazine 50 mg tablet 50 mg PO BID 06/16/23 01/11/24 01/11/24 History ondansetron HCl 8 mg tablet 8 mg PO Q8H PRN nausea and 09/05/23 01/11/24 01/10/24 Rx vomiting #30 tabs cholecalciferol (vitamin D3) 1,250 See Rx Instructions .Route 11/06/23 01/11/24 01/10/24 Rx mcg (50,000 unit) capsule .COMPLEX #12 caps tiotropium 2.5 mcg-olodaterol 2.5 2 puff inhalation DAILY #4 grams 11/10/23 01/11/24 01/10/24 Rx mcg/actuation mist for inhalation (Stiolto Respimat) amlodipine 10 mg tablet See Rx Instructions .Route 11/14/23 01/11/24 01/10/24 Rx .COMPLEX #90 tabs PORTABLE OXYGEN CONCENTRATOR AND #1 ea 11/16/23 01/11/24 Unknown Rx SUPPLIES potassium chloride 20 mEq 20 meq PO DAILY #5 tabs 11/16/23 01/11/24 01/10/24 Rx tablet,extended release duloxetine 20 mg capsule,delayed 20 mg PO BID 90 days #180 caps 11/24/23 01/11/24 01/10/24 Rx release apixaban 5 mg tablet (Eliquis) 5 mg PO BID 12/21/23 01/11/24 01/09/24 History ezetimibe 10 mg tablet 10 mg PO DAILY 12/21/23 01/11/24 01/10/24 History losartan 100 1 tab PO DAILY 12/21/23 01/11/24 01/10/24 History mg-hydrochlorothiazide 25 mg tablet metoprolol tartrate 50 mg tablet 100 mg PO BID 12/21/23 01/11/24 01/11/24 History rosuvastatin 40 mg tablet 40 mg PO DAILY 12/21/23 01/11/24 01/10/24 History pantoprazole 40 mg tablet,delayed See Rx Instructions .Route 01/02/24 01/11/24 01/10/24 Rx release .COMPLEX #90 tabs furosemide 40 mg tablet 40 mg PO DAILY 01/09/24 01/11/24 01/10/24 History Allergies Allergy/AdvReac Type Severity Reaction Status Date / Time Sulfa (Sulfonamide Allergy Unknown Verified 01/18/24 16:44 Antibiotics) sulfamethoxazole Allergy itching Verified 01/18/24 16:44 [From Bactrim] trimethoprim [From Bactrim] Allergy itching Verified 01/18/24 16:44 PFSH Acute 2 PFSH: Medical History Port-A-Cath in place 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 Mixed connective tissue disease Advanced directives, counseling/discussion Former heavy cigarette smoker (20-39 per day) Quit in 2009 Aortic insufficiency dx 10/14/02 Dr Kam Martinez Arthralgia of both knees Venous insufficiency of both lower extremities Opioid contract exists Personal history of nicotine dependence Quit 2010 History of prior cigarette smoking Obesity Hypothyroidism (acquired) Chronic joint pain Anxiety and depression Hyperlipidemia Common migraine with intractable migraine Left Achilles tendinitis Back pain, lumbosacral Type 2 diabetes mellitus Essential hypertension COPD (chronic obstructive pulmonary disease) Gastroesophageal reflux disease without esophagitis Surgical History Stented coronary artery 2 stents done 02/16/96 in [place] History of knee replacement 2010 History of delivery Family History Other CAD (coronary artery disease) Cancer Diabetes Denies family history of Rheumatoid arthritis Lupus Hyperlipidemia Chronic kidney disease (CKD) Hypertension Stroke Social History Smoking and tobacco/nicotine status: former use of tobacco/nicotine Quit status (tobacco/nicotine): has quit using Year quit tobacco: 2009 Former quit date comment: 3 ppd X 37 years Alcohol intake: never Substance/Drug Use: never Lives independently: No Household members: spouse Marital status: Current occupational status: unemployed Do you think of yourself as: Straight/Heterosexual Current gender identity: Female Vitals/I&O/Wt Last Vital Signs Temp 98 F 01/18/24 16:40 Pulse 110 H 01/18/24 18:41 Resp 21 H 01/18/24 18:41 BP 122/75 01/18/24 18:41 Pulse Ox 96 01/18/24 18:41 O2 Del Method Room Air 01/18/24 16:40 01/18/24 01/18/24 01/18/24 06:59 14:59 22:59 Intake Total 16.375 / 16.375 Balance 16.375 / 16.375 Weight last 48 hrs Weight 131.995 kg Physical Exam 2 Narrative: Morbid obese female Currently on room air A-fib RVR Currently on Cardizem Variable S1-S2 Abdomen distended nontender No active sign of heart failure Euvolemic Lower extremity no edema Pleasant and cooperative NIH 0 is at the bedside Data 01/18/24 16:50 01/18/24 16:50 A&P Assessment and plan (1) Aortic insufficiency: Qualifiers: Cardiac valve disease etiology: etiology unspecified Qualified Code(s): I35.1 - Nonrheumatic aortic (valve) insufficiency (2) Essential hypertension: (3) Atrial flutter: (4) Venous insufficiency of both lower extremities: (5) Type 2 diabetes mellitus: Qualifiers: Diabetes mellitus senior care insulin use: without exterminator use Diabetes mellitus complication status: without complication Qualified Code(s): E11.9 - Type 2 diabetes mellitus without complications (6) 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: (7) Morbid obesity with BMI of 45.0-49.9, adult: (8) Gastroesophageal reflux disease without esophagitis: (9) COPD (chronic obstructive pulmonary disease): Qualifiers: COPD type: unspecified COPD Qualified Code(s): J44.9 - Chronic obstructive pulmonary disease, unspecified (10) Small cell lung cancer: Plan A-fib RVR No signs of PE Currently on Cardizem drip Continue metoprolol along Eliquis No signs of PE CT chest consistent with pneumonitis She carries history of A-fib, this is not a new diagnosis COPD without acute exacerbation not requiring oxygen Patient has been getting recurrent pneumonias, patient is stating that he was intubated in November at [facility] I am requesting records Currently she is on room air No active fever or leukocytosis Will start her on doxycycline and Zosyn for now Coronary disease, history of 2 stents, no active chest pain Small cell lung cancer status postchemotherapy, recently finished radiotherapy Patient is full code Cardiac diet DVT prophylaxis sufficed with Eliquis Review of records revealed that patient has finished chemoradiotherapy, Dr. Quan lung construction administrator has diagnosed her with moderate airflow obstruction I will have to titrate her Cardizem drip overnight which will need frequent monitoring of vitals and heart rate along dosage of the medication Attestations 2 Medical Necessity Statement*: Anticipating discharge within 48 hours Diagnoses Aortic valve insufficiency, etiology of cardiac valve disease unspecified I35.1 Cardiac valve disease etiology: etiology unspecified Essential hypertension I10 Atrial flutter I48.92 Venous insufficiency of both lower extremities I87.2 Type 2 diabetes mellitus without complication, without long-term current use of insulin E11.9 Diabetes mellitus exterminator insulin use: without senior care use Diabetes mellitus complication status: without complication 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
[2024-01-18] MEDS: cefTRIAXone 1,000 mg SDV 1000 MG IVP (19:50)
--- NOTE | 2024-01-18 20:00 | PC.NURSE ---
Dr Sifuentes notified of last heart rate, no further orders received at this time.
--- NOTE | 2024-01-18 20:03 | PC.NURSE ---
Dr Diane notified of last heart rate, and patient's status on cardizem drip. No further orders received at this time.
[2024-01-18] MEDS: azithromycin 500 MG in sodium chloride 0.9% 250 ML 250 MG IV (20:09)
--- NOTE | 2024-01-18 20:31 | PC.NURSE ---
Report was called to Macario BOWENS in [facility]. All questions and concerns were addressed at time of report.
[2024-01-18 21:50] LABS: Thyroid Stimulating Hormone 2.31 uIU/mL (0.27-4.20)
[2024-01-18] MEDS: piperacillin-tazobactam 3.375 GM in sodium chloride 0.9% (plus) 50 ML IV (21:58)
--- NOTE | 2024-01-18 22:50 | ECG_ITS ---
[facility] Test Date: 2024-01-18 Pat Name: Janet Pillai Department: Room: 102 Gender: Female Hair Weaver: : 1955 Requested By: Sampson Sifuentes Order Number: [id number] Tomy MD: Donell Tavares M.D. Measurements Intervals [place] Rate: 115 P: 0 PA: 0 QRS: -64 QRSD: 176 T: -40 QT: 342 QTc: 473 Interpretive Statements Atrial fibrillation WITH RAPID VENTRICULAR RESPONSE RIGHT BUNDLE BRANCH BLOCK [120+ ms QRS DURATION, UPRIGHT V1, 40+ ms S IN I/aVL/V4/V5/V6] LEFT ANTERIOR FASCICULAR BLOCK [QRS AXIS <= -45, QR IN I, RS IN II] SEPTAL MYOCARDIAL INFARCTION , OF INDETERMINATE AGE [40+ ms Q WAVE IN V1/V2] MODERATE T-WAVE ABNORMALITY, CONSIDER LATERAL ISCHEMIA [-0.1+ mV T-WAVE IN I/aVL/V5/V6] Compared to ECG 01/18/2024 18:41:46 Left anterior fascicular block now present Myocardial infarct finding now present Left-axis deviation no longer present T-wave abnormality still present Possible ischemia still present Electronically Signed On 01-19-2024 1:14:50 CDT by Donell Tavares M.D. [id number]
[2024-01-18] MEDS: dilTIAZem 100 MG in sodium chloride 0.9% (add-van) 100 ML 15 MG IV (23:53)
[2024-01-19] VITALS (10 sets, daily range): BP systolic 108–137; BP diastolic 68–96; PULSE 73–147; RESP 17–21; TEMP 36.4–37.1; O2SAT 95–99
[2024-01-19] LABS: Troponin 5 6HR 46.97 ng/L (0-10); Troponin 5 6HR Delta 7.97 ng/L (0-12)
[2024-01-19 05:08] LABS: Basophils # 0.1 10^3/uL (0.0-0.1); Basophils % 0.6 %; Eosinophils # 0.2 10^3/uL (0.0-0.8); Lymphocytes # 0.8 10^3/uL (0.8-4.8); Lymphocytes % 10.1 %; Mean Corpuscular Hemoglobin 28.3 pg (27-33); Mean Corpuscular Volume 91.2 fl (85-98); Mean Platelet Volume 10.4 fL (7.4-10.4); Monocytes # 0.6 10^3/uL (0.2-0.9); Monocytes % 8.2 %; Neutrophils # 6.14 10^3/uL (1.8-7.7); Neutrophils % 78.6 %; Nucleated Red Blood Cells % 0 %; Platelet Count 199 10^3/cmm (157-399); Red Blood Count 3.29 10^6/uL (3.85-5.65); Red Cell Distribution Width 16.1 % (12.1-15.1); White Blood Count 7.82 10^3/uL (3.29-11.43)
[2024-01-19] MEDS: piperacillin-tazobactam 3.375 GM in sodium chloride 0.9% (plus) 50 ML IV ×3 (05:23→22:00)
[2024-01-19 05:33] LABS: Anion Gap 15.3 (5-19); Blood Urea Nitrogen 21 mg/dL (8-23); Calcium 8.6 mg/dL (8.5-10.5); Carbon Dioxide 27 mmol/L (22-29); Chloride 100 mmol/L (98-107); Creatinine Clr Calc Pharmacy 81.7274; Glomerular Filtration Rate 55.5 mL/min (90-130); Glucose 129 mg/dL (65-115); Magnesium 1.6 mg/dL (1.7-2.3); Osmolality Calculated 293 mOsm/kg (285-295); Phosphorus 3.9 mg/dL (2.5-4.5); Potassium 3.3 mmol/L (3.5-5.1); Sodium 139 mmol/L (136-145)
[2024-01-19] MEDS: dilTIAZem 100 MG in sodium chloride 0.9% (add-van) 100 ML 15 MG IV (06:10)
[2024-01-19] MEDS: doxycycline 100 mg Tablet PO ×2 (08:14→17:39)
[2024-01-19] MEDS: sennosides-docusate Tablet 1 TAB PO (08:14)
[2024-01-19] MEDS: metoprolol tartrate 50 mg Tablet 100 MG PO ×2 (08:14→17:39)
[2024-01-19] MEDS: dexamethasone 10 mg/mL INJ 6 MG IVP (08:14)
[2024-01-19] MEDS: apixaban 5 mg Tablet PO ×2 (08:14→17:39)
[2024-01-19 09:04] LABS: Erythrocyte Sedimentation Rate 34 mm/hr (0-15)
[2024-01-19 09:20] LABS: C Reactive Protein 45.9 mg/L (0.0-4.9)
[2024-01-19 09:27] LABS: Procalcitonin 0.04 ng/mL (0-0.5)
--- NOTE | 2024-01-19 10:46 | PC.CHAP ---
Pastoral Care Encounter/Spiritual Assessment Type of Contact [] Declined lacemaker visit [] Patient/Family/Request visit [] Outpatient visit [] Follow-up visit [] Physician referral [] Code/Alert [x] Routine visit [] Staff referral [] Actively dying [] Patient sleeping [] Family support [] [] Out of room [] Palliative care [] [] Receiving care in room [] Pre-surgical visit [] Trauma [] Long length of stay [] ICU visit [] Other: Relational/Emotional Strength [x] Patient feels connected with others/family/visitors/staff [] Distress [] Loneliness/isolation [] Abandonment Spirituality of Patient [x] Person of Katie [] Attends Scientology of their Katie [x] Believes in Prayer [] Reads Bible or Tenriism materials [] There are Spiritual issues to be addressed Court Administrator Interventions [x] Prayer [x] Active listening [x] Non-anxious presence [] Spiritual/emotional support [] Crisis/trauma care [] Spiritual counseling [] Bereavement support [] Provided bereavement packet [] Provided Bible/devotional materials [] Provided toy/stuffed animal, coloring book to patient or family member [] Provided Communion [] Anointing/[place] [] Salvation [] Completed spiritual assessment [] Other: Impact on Illness or Injury [] Angry [] Fearful [] Anxious [] Often cries [] Exhaustion [] Unable to work [] Unable to attend faith [] Unable to walk/stand [] Unable to read [] Unable to drive [] Unable to eat/drink [] Unable to sleep [] Unable to be with family [] Patient intubated [] Other: Summary Good spirits Time spent with patient 10 min
[2024-01-19] MEDS: dilTIAZem 100 MG in sodium chloride 0.9% (add-van) 100 ML 10 MG IV (11:58)
[2024-01-19] MEDS: methylPREDNISolone sod succ 125 mg/2 mL INJ IVP (12:20)
[2024-01-19] MEDS: dilTIAZem 60 mg Tablet PO ×2 (12:20→17:39)
--- NOTE | 2024-01-19 13:33 | P.PN_ITS ---
Subjective 2 Subjective: Patient was seen this morning, -She denies any fevers, chills, has a co [facility] -Discussed CT scan findings with Dr. Armando marsh, with findings of radiation pneumonitis versus pneumonia, ERC, CRP, Pro-Tremayne ordered -Unfortunately patient's radiation oncol ogist is on vacation, but I was told by his nurse that area of radiation was in the area of radiation pneumonitis, and radiation field -Will start steroids, continue zosyn Vitals/I&O/Wt Last Vital Signs Temp 98.3 F 01/19/24 11:00 Pulse 73 01/19/24 11:00 Resp 18 01/19/24 11:00 BP 108/68 01/19/24 11:00 Pulse Ox 99 01/19/24 11:00 O2 Del Method Nasal Cannula 01/19/24 11:00 O2 Flow Rate 0.5 01/19/24 08:33 01/18/24 01/19/24 01/19/24 22:59 06:59 14:59 Intake Total 1516.375 / 1516.375 341.75 / 1858.125 627 / 627 Balance 1516.375 / 1516.375 341.75 / 1858.125 627 / 627 Weight last 48 hrs Weight 138.028 kg Weight 137.155 kg Weight 131.995 kg Physical Exam 2 Const: COMMON NORMALS: no acute distress and patient oriented x3 Resp: COMMON NORMALS: normal respiratory effort, No retractions and No use of accessory muscles AUSCULTATION: wheezes Cardio: COMMON NORMALS: regular rate, regular rhythm, S1 normal heart sound present and S2 normal heart sound present RATE: regular rate RHYTHM: r egular rhythm HEART SOUNDS: S1 normal heart sound present and S2 normal heart sound present GI: COMMON NORMALS: Normal to inspection, nondistended, normoactive bowel sounds present and non-tender Extremity: COMMON NORMALS: no calf tenderness and no pedal edema Neuro: COMMON NORMALS: patient oriented x3 Psych: COMMON NORMALS: mental status grossly normal Data 01/19/24 04:35 01/19/24 04:35 Micro: Microbiology 01/19/24 08:30 Gram Stain - Final Sputum - Expectorated Sputum 01/18/24 19:00 Blood Culture - Preliminary Blood SPECIMEN COLLECTED 01/18/24 19:07 Blood Culture - Preliminary Blood SPECIMEN COLLECTED A&P Assessment and plan (1) Aortic insufficiency: Qualifiers: Cardiac valve disease etiology: etiology unspecified Qualified Code(s): I35.1 - Nonrheumatic aortic (valve) insufficiency (2) Essential hypertension: (3) Atrial flutter: (4) Venous insufficiency of both lower extremities: (5) Type 2 diabetes mellitus: Qualifiers: Diabetes mellitus detention insulin use: without intermediate accountant use Diabetes mellitus complication status: without complication Qualified Code(s): E11.9 - Type 2 diabetes mellitus without complications (6) 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 Cardizem Continue metoprolol Eliquis No signs of PE CT chest consistent with pneumonitis She carries history of A-fib, this is not a new diagnosis COPD Radiation pneumonitis versus pneumonia 2. Dense consolidation within the left upper lobe and superior segment of the left lower lobe, similar compared to PET-CT January 16, 2024. Findings may represent pneumonia or acute/subacute postradiation pneumonitis. Differential ? Radiation pneumonitis versus pneumonia -ESR 32, no significant CRP and Pro-Tremayne elevation -This area is in the radiation field ? Will treat radiation pneumonitis with Solu-Medrol, followed by prednisone taper ? Continue Zosyn for now Coronary disease, history of 2 stents, no active chest pain Small cell lung cancer status postchemotherapy, recently finished radiotherapy Patient is full code Cardiac diet DVT prophylaxis sufficed with Eliquis Review of records revealed that patient has finished chemoradiotherapy, Dr. Quan lung construction trades teacher has diagnosed her with moderate airflow obstruction Patient was seen this morning, -She denies any fevers, chills, has a cough -Discussed CT scan findings with Dr. Jenkins, with findings of radiation pneumonitis versus pneumonia, ERC, CRP, Pro-Tremayne ordered -Unfortunately patient's radiation oncologist is on vacation, but I was told by his nurse that area of radiation was in the area of radiation pneumonitis, and radiation field -Will start steroids, continue zosyn \ Attestations 2 Medical Necessity Statement*: Patient requires hospitalization for A-fib with RVR, radiation pneumonitis, COPD Diagnoses Aortic valve insufficiency, etiology of cardiac valve disease unspecified I35.1 Cardiac valve disease etiology: etiology unspecified Essential hypertension I10 Atrial flutter I48.92 Venous insufficiency of both lower extremities I87.2 Type 2 diabetes mellitus without complication, without long-term current use of insulin E11.9 Diabetes mellitus intermediate accountant insulin use: without intermediate accountant use Diabetes mellitus complication status: without complication 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
[2024-01-19 17:24] LABS: Bacillus cereus group Not Detected (NOT DETECT); Bacillus subtillis group Not Detected (NOT DETECT); Corynebacterium Not Detected (NOT DETECT); Cutibacterium acnes (P.acnes) Not Detected (NOT DETECT); Enterococcus Not Detected (NOT DETECT); Enterococcus faecalis Not Detected (NOT DETECT); Enterococcus faecium Not Detected (NOT DETECT); Lactobacillus species Not Detected (NOT DETECT); Listeria Not Detected (NOT DETECT); Listeria monocytogenes Not Detected (NOT DETECT); Micrococcus Not Detected (NOT DETECT); Pan Candida Not Detected (NOT DETECT); Pan Gram-Negative Not Detected (NOT DETECT); Staphylococcus epidermidis Not Detected (NOT DETECT); Staphylococcus lugdunensis Not Detected (NOT DETECT); Staphylococcus species Not Detected (NOT DETECT); Streptococcus agalactiae Not Detected (NOT DETECT); Streptococcus anginosus group Not Detected (NOT DETECT); Streptococcus pneumoniae Not Detected (NOT DETECT); Streptococcus pyogenes Not Detected (NOT DETECT); Streptococcus species Not Detected (NOT DETECT)
[2024-01-20] VITALS (13 sets, daily range): BP systolic 97–152; BP diastolic 46–101; PULSE 89–109; RESP 13–19; TEMP 36.3–37; O2SAT 90–98
[2024-01-20] MEDS: dilTIAZem 60 mg Tablet PO ×5 (00:09→23:43)
[2024-01-20 05:23] LABS: Basophils % 0.2 %; Hematocrit 30.3 % (36-47); Lymphocytes # 0.5 10^3/uL (0.8-4.8); Mean Corpuscular HGB Conc 31.4 g/dL (30-55); Mean Corpuscular Hemoglobin 28.7 pg (27-33); Mean Corpuscular Volume 91.5 fl (85-98); Monocytes # 0.3 10^3/uL (0.2-0.9); Monocytes % 2.5 %; Neutrophils % 92.6 %; Nucleated Red Blood Cells % 0 %; Platelet Count 221 10^3/cmm (157-399); Red Blood Count 3.31 10^6/uL (3.85-5.65); Red Cell Distribution Width 15.6 % (12.1-15.1); White Blood Count 12.21 10^3/uL (3.29-11.43)
[2024-01-20] MEDS: piperacillin-tazobactam 3.375 GM in sodium chloride 0.9% (plus) 50 ML IV ×3 (05:42→21:41)
[2024-01-20 05:51] LABS: Alanine Aminotransferase 28 U/L (0-33); Albumin Level 3.4 g/dL (3.5-5.2); Alkaline Phosphatase 75 U/L (35-105); Aspartate Amino Transferase 24 U/L (0-32); Blood Urea Nitrogen 18 mg/dL (8-23); Calcium 9.5 mg/dL (8.5-10.5); Carbon Dioxide 26 mmol/L (22-29); Chloride 99 mmol/L (98-107); Creatinine Clr Calc Pharmacy 91.2838; Globulin 2.7 g/dL (1.3-4.6); Glomerular Filtration Rate 62.6 mL/min (90-130); Glucose 210 mg/dL (65-115); Magnesium 1.7 mg/dL (1.7-2.3); Osmolality Calculated 292 mOsm/kg (285-295); Phosphorus 3.3 mg/dL (2.5-4.5); Sodium 137 mmol/L (136-145); Total Bilirubin 0.2 mg/dL (0.15-1.2); Total Protein 6.1 g/dL (6.6-8.7)
[2024-01-20 05:59] LABS: NT Pro B Type Natriuretic Pept 5294 pg/mL (0-125)
[2024-01-20] MEDS: apixaban 5 mg Tablet PO ×2 (08:48→17:42)
[2024-01-20] MEDS: doxycycline 100 mg Tablet PO ×2 (08:48→17:42)
[2024-01-20] MEDS: metoprolol tartrate 50 mg Tablet 100 MG PO ×2 (08:48→17:41)
[2024-01-20] MEDS: sennosides-docusate Tablet 1 TAB PO (08:48)
[2024-01-20] MEDS: FUROsemide 10 mg/mL SDV 2mL 20 MG IVP (10:16)
[2024-01-20] MEDS: predniSONE 20 mg Tablet 40 MG PO (11:05)
--- NOTE | 2024-01-20 13:25 | PC.NURSE ---
Aliciae took patient to the shower. After her shower, patient had mild shortness of breath but otherwise tolerated well
--- NOTE | 2024-01-20 14:08 | PM.PN ---
Subjective Subjective: Patient was seen this morning, she denies any fevers, no chills, does report chest palpitations upon exertion Vitals/I&O/Wt Last Vital Signs Temp 97.7 F 01/20/24 12:00 Pulse 101 H 01/20/24 12:00 Resp 18 01/20/24 12:00 BP 152/81 01/20/24 12:00 Pulse Ox 98 01/20/24 12:00 O2 Del Method Nasal Cannula 01/20/24 12:00 O2 Flow Rate 0.5 01/20/24 09:55 01/19/24 01/20/24 01/20/24 22:59 06:59 14:59 Intake Total 670.167 / 1297.167 300 / 1597.167 770 / 770 Balance 670.167 / 1297.167 300 / 1597.167 770 / 770 Weight last 48 hrs Weight 139.253 kg Weight 138.028 kg Weight 137.155 kg Weight 131.995 kg Physical Exam Const: COMMON NORMALS: no acute distress and patient oriented x3 Resp: COMMON NORMALS: normal respiratory effort, No retractions, No use of accessory muscles and clear to auscultation bilaterally AUSCULTATION: clear to auscultation bilaterally Cardio: COMMON NORMALS: S1 normal heart sound present and S2 normal heart sound present RATE: tachycardic RHYTHM: abnormal rhythm HEART SOUNDS: S1 normal heart sound present and S2 normal heart sound present GI: COMMON NORMALS: Normal to inspection, nondistended, normoactive bowel sounds present and non-tender Extremity: COMMON NORMALS: no pedal edema Neuro: COMMON NORMALS: patient oriented x3 Psych: COMMON NORMALS: mental status grossly normal Data 01/21/24 04:02 01/21/24 04:02 Micro: Microbiology 01/19/24 08:30 Gram Stain - Final Sputum - Expectorated Sputum Sputum Culture - Preliminary 01/18/24 19:07 Blood Culture - Preliminary Blood NEGATIVE TO DATE 01/18/24 19:00 Blood Culture - Preliminary Blood A&P Assessment and plan (1) Aortic insufficiency: Qualifiers: Cardiac valve disease etiology: etiology unspecified Qualified Code(s): I35.1 - Nonrheumatic aortic (valve) insufficiency (2) Essential hypertension: (3) Atrial flutter: (4) Venous insufficiency of both lower extremities: (5) Type 2 diabetes mellitus: Qualifiers: Diabetes mellitus complication status: without complication Diabetes mellitus director long term care insulin use: without director long term care use Qualified Code(s): E11.9 - Type 2 diabetes mellitus without complications (6) 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 Cardizem Continue metoprolol Eliquis No signs of PE CT chest consistent with pneumonitis She carries history of A-fib, this is not a new diagnosis COPD Radiation pneumonitis versus pneumonia 2. Dense consolidation within the left upper lobe and superior segment of the left lower lobe, similar compared to PET-CT January 16, 2024. Findings may represent pneumonia or acute/subacute postradiation pneumonitis. Differential ? Radiation pneumonitis versus pneumonia -ESR 32, no significant CRP and Pro-Tremayne elevation -This area is in the radiation field ? Will treat radiation pneumonitis with Solu-Medrol, followed by prednisone taper ? Continue Zosyn for now Coronary disease, history of 2 stents, no active chest pain Small cell lung cancer status postchemotherapy, recently finished radiotherapy Patient is full code Cardiac diet DVT prophylaxis sufficed with Eliquis Review of records revealed that patient has finished chemoradiotherapy, Dr. Quan lung thermodynamics engineer has diagnosed her with moderate airflow obstruction Patient was seen this morning, -She denies any fevers, chills, has a cough -Discussed CT scan findings with Dr. Jenkins, with findings of radiation pneumonitis versus pneumonia, ERC, CRP, Pro-Tremayne ordered -Unfortunately patient's radiation oncologist is on vacation, but I was told by his nurse that area of radiation was in the area of radiation pneumonitis, and radiation field -Will start steroids, continue zosyn \ Attestations Medical Necessity Statement*: Patient requires hospitalization for A-fib with RVR, elevated heart rates requiring further titration Diagnoses Aortic valve insufficiency, etiology of cardiac valve disease unspecified I35.1 Cardiac valve disease etiology: etiology unspecified Essential hypertension I10 Atrial flutter I48.92 Venous insufficiency of both lower extremities I87.2 Type 2 diabetes mellitus without complication, without long-term current use of insulin E11.9 Diabetes mellitus complication status: without complication Diabetes mellitus half-way insulin use: without half-way use 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
[2024-01-20] MEDS: morphine IR 15 mg Tablet PO (19:45)
[2024-01-21] VITALS (11 sets, daily range): BP systolic 110–153; BP diastolic 63–103; PULSE 68–112; RESP 17–24; TEMP 36.6; O2SAT 97–100
[2024-01-21 04:14] LABS: Basophils % 0.2 %; Hematocrit 30.7 % (36-47); Lymphocytes % 4.9 %; Mean Corpuscular HGB Conc 31.3 g/dL (30-55); Mean Corpuscular Hemoglobin 28.8 pg (27-33); Mean Corpuscular Volume 92.2 fl (85-98); Mean Platelet Volume 10.4 fL (7.4-10.4); Monocytes # 1.1 10^3/uL (0.2-0.9); Monocytes % 5.6 %; Neutrophils # 17.49 10^3/uL (1.8-7.7); Neutrophils % 88.2 %; Nucleated Red Blood Cells % 0 %; Platelet Count 274 10^3/cmm (157-399); Red Blood Count 3.33 10^6/uL (3.85-5.65); White Blood Count 19.81 10^3/uL (3.29-11.43)
[2024-01-21 04:45] LABS: Alanine Aminotransferase 43 U/L (0-33); Albumin Level 3.2 g/dL (3.5-5.2); Alkaline Phosphatase 61 U/L (35-105); Blood Urea Nitrogen 23 mg/dL (8-23); Calcium 9.4 mg/dL (8.5-10.5); Carbon Dioxide 28 mmol/L (22-29); Chloride 100 mmol/L (98-107); Creatinine Clr Calc Pharmacy 74.6868; Globulin 2.8 g/dL (1.3-4.6); Glomerular Filtration Rate 49.7 mL/min (90-130); Glucose 176 mg/dL (65-115); Magnesium 1.6 mg/dL (1.7-2.3); NT Pro B Type Natriuretic Pept 7874 pg/mL (0-125); Osmolality Calculated 294 mOsm/kg (285-295); Phosphorus 4.1 mg/dL (2.5-4.5); Sodium 138 mmol/L (136-145); Total Bilirubin 0.2 mg/dL (0.15-1.2)
[2024-01-21 04:46] LABS: Anion Gap 14.1 (5-19); Potassium 4.1 mmol/L (3.5-5.1)
[2024-01-21 04:47] LABS: Aspartate Amino Transferase 8 U/L (0-32)
[2024-01-21] MEDS: dilTIAZem 60 mg Tablet PO (06:10)
[2024-01-21] MEDS: piperacillin-tazobactam 3.375 GM in sodium chloride 0.9% (plus) 50 ML IV ×2 (06:11→13:58)
[2024-01-21] MEDS: sennosides-docusate Tablet 1 TAB PO (09:18)
[2024-01-21] MEDS: metoprolol tartrate 50 mg Tablet 100 MG PO ×2 (09:18→17:29)
[2024-01-21] MEDS: predniSONE 20 mg Tablet 40 MG PO (09:19)
[2024-01-21] MEDS: doxycycline 100 mg Tablet PO ×2 (09:19→17:30)
[2024-01-21] MEDS: apixaban 5 mg Tablet PO ×2 (09:19→17:29)
[2024-01-21] MEDS: amiodarone 150 MG/100 ML PREMIX 400 MG IV (09:20)
[2024-01-21] MEDS: morphine IR 15 mg Tablet PO ×2 (09:48→17:29)
[2024-01-21] MEDS: acetaminophen 500 mg Tablet PO (14:11)
--- NOTE | 2024-01-21 15:06 | P.PN_ITS ---
Subjective 2 Subjective: This is progress note from 01/21/2024, patient was seen in the morning, during my examination, she had received her medications this morning, heart rates in the 120s to 140s, she tells that whenever she gets up and exerts herself, it goes up to the 140s and she should feel short of breath, discussed continued inpatient monitoring, she is agreeable ? Patient was given her p.o. Cardizem this morning, in addition to metoprolol heart rates remain in the 120s to 130s ? Cardizem was discontinued ? Switch to amiodarone drip with amiodarone bolus ? Patient was reexamined midmorning, she is converted to normal sinus rhythm, on amiodarone drip going at 1, she is alert awake, following all commands, discussed continued inpatient monitoring switch to p.o. amiodarone ? Appears to be fluid overloaded, plus pitting edema, crackles on examination, 1 dose IV Lasix ? Magnesium 1.6 replace p.o. Vitals/I&O/Wt Last Vital Signs Temp 97.8 F 01/21/24 11:45 Pulse 68 01/21/24 11:45 Resp 19 H 01/21/24 11:45 BP 129/63 01/21/24 11:45 Pulse Ox 98 01/21/24 11:45 O2 Del Method Nasal Cannula 01/21/24 11:45 O2 Flow Rate 1 01/21/24 08:49 01/21/24 01/21/24 01/21/24 06:59 14:59 22:59 Intake Total 50 / 1819.833 630.556 / 630.556 Output Total 300 / 1500 Balance -250 / 319.833 630.556 / 630.556 Weight last 48 hrs Weight 140.387 kg Weight 139.253 kg Physical Exam 2 Const: COMMON NORMALS: no acute distress and patient oriented x3 Resp: COMMON NORMALS: normal respiratory effort, No retractions and No use of accessory muscles OTHER: Crackles on examination Cardio: COMMON NORMALS: regular rate, regular rhythm, S1 normal heart sound present and S2 normal heart sound present RATE: regular rate RHYTHM: r egular rhythm HEART SOUNDS: S1 normal heart sound present and S2 normal heart sound present GI: COMMON NORMALS: Normal to inspection, nondistended, normoactive bowel sounds present and non-tender Extremity: NARRATIVE EXTREMITY EXAM: 1+ pitting edema bilateral extremity Neuro: COMMON NORMALS: patient oriented x3 Psych: COMMON NORMALS: mental status grossly normal Data 01/21/24 04:02 01/21/24 04:02 Micro: Microbiology 01/18/24 19:00 Blood Culture - Preliminary Blood Bacillus sp not b. anthracis 01/19/24 08:30 Gram Stain - Final Sputum - Expectorated Sputum Sputum Culture - Preliminary A&P Assessment and plan (1) Aortic insufficiency: Qualifiers: Cardiac valve disease etiology: etiology unspecified Qualified Code(s): I35.1 - Nonrheumatic aortic (valve) insufficiency (2) Essential hypertension: (3) Atrial flutter: (4) Venous insufficiency of both lower extremities: (5) Type 2 diabetes mellitus: Qualifiers: Diabetes mellitus group home insulin use: without group home use Diabetes mellitus complication status: without complication Qualified Code(s): E11.9 - Type 2 diabetes mellitus without complications (6) 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 Cardizem Continue metoprolol Eliquis No signs of PE CT chest consistent with pneumonitis She carries history of A-fib, this is not a new diagnosis COPD Radiation pneumonitis versus pneumonia 2. Dense consolidation within the left upper lobe and superior segment of the left lower lobe, similar compared to PET-CT January 16, 2024. Findings may represent pneumonia or acute/subacute postradiation pneumonitis. Differential ? Radiation pneumonitis versus pneumonia -ESR 32, no significant CRP and Pro-Tremayne elevation -This area is in the radiation field ? Will treat radiation pneumonitis with Solu-Medrol, followed by prednisone taper ? Continue Zosyn for now Coronary disease, history of 2 stents, no active chest pain Small cell lung cancer status postchemotherapy, recently finished radiotherapy Patient is full code Cardiac diet DVT prophylaxis sufficed with Eliquis Review of records revealed that patient has finished chemoradiotherapy, Dr. Zamora lung railroad car repairman has diagnosed her with moderate airflow obstruction This is progress note from 01/21/2024, patient was seen in the morning, during my examination, she had received her medications this morning, heart rates in the 120s to 140s, she tells that whenever she gets up and exerts herself, it goes up to the 140s and she should feel short of breath, discussed continued inpatient monitoring, she is agreeable ? Patient was given her p.o. Cardizem this morning, in addition to metoprolol heart rates remain in the 120s to 130s ? Cardizem was discontinued ? Switch to amiodarone drip with amiodarone bolus ? Patient was reexamined midmorning, she is converted to normal sinus rhythm, on amiodarone drip going at 1, she is alert awake, following all commands, discussed continued inpatient monitoring switch to p.o. amiodarone ? Appears to be fluid overloaded, plus pitting edema, crackles on examination, 1 dose IV Lasix ? Magnesium 1.6 replace p.o. Attestations 2 Medical Necessity Statement*: Patient requires hospitalization for A-fib with RVR, requiring amiodarone drip, fluid overload requiring Lasix, continue antibiotics continue steroids Diagnoses Aortic valve insufficiency, etiology of cardiac valve disease unspecified I35.1 Cardiac valve disease etiology: etiology unspecified Essential hypertension I10 Atrial flutter I48.92 Venous insufficiency of both lower extremities I87.2 Type 2 diabetes mellitus without complication, without long-term current use of insulin E11.9 Diabetes mellitus group home insulin use: without terminal operator use Diabetes mellitus complication status: without complication 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
[2024-01-21] MEDS: magnesium lactate 84 mg Tablet PO (15:50)
[2024-01-21] MEDS: FUROsemide 10 mg/mL SDV 2mL 20 MG IVP (15:50)
[2024-01-21] MEDS: amiodarone 200 mg Tablet 400 MG PO (17:29)
--- NOTE | 2024-01-21 17:53 | PC.NURSE ---
patient requesting something for headache. It is too soon to give her tylenol as her last dose was in the 1400 hour. I told her the only other option I had was morphine and asked her if she would like that and she said give me something and I told her morphine typically isn't known for helping headaches but we could try. Ordered morphine given.
[2024-01-22] VITALS (7 sets, daily range): BP systolic 120–173; BP diastolic 61–92; PULSE 73–83; RESP 18–19; TEMP 36.6–36.7; O2SAT 96–99
[2024-01-22 04:32] LABS: Basophils % 0.2 %; Eosinophils % 0.1 %; Lymphocytes # 1.5 10^3/uL (0.8-4.8); Lymphocytes % 10.5 %; Mean Corpuscular Hemoglobin 28.1 pg (27-33); Mean Corpuscular Volume 93.7 fl (85-98); Mean Platelet Volume 10.3 fL (7.4-10.4); Monocytes % 7.4 %; Neutrophils # 11.05 10^3/uL (1.8-7.7); Neutrophils % 79.8 %; Nucleated Red Blood Cells # 0.1 /100WBC; Nucleated Red Blood Cells % 0.4 %; Platelet Count 246 10^3/cmm (157-399); Red Blood Count 3.31 10^6/uL (3.85-5.65); Red Cell Distribution Width 16.3 % (12.1-15.1); White Blood Count 13.84 10^3/uL (3.29-11.43)
[2024-01-22 04:42] LABS: Alanine Aminotransferase 36 U/L (0-33); Albumin Level 3.3 g/dL (3.5-5.2); Alkaline Phosphatase 62 U/L (35-105); Anion Gap 16.5 (5-19); Aspartate Amino Transferase 13 U/L (0-32); Blood Urea Nitrogen 31 mg/dL (8-23); Carbon Dioxide 26 mmol/L (22-29); Chloride 101 mmol/L (98-107); Globulin 2.2 g/dL (1.3-4.6); Glomerular Filtration Rate 49.7 mL/min (90-130); Glucose 165 mg/dL (65-115); Magnesium 1.6 mg/dL (1.7-2.3); Osmolality Calculated 300 mOsm/kg (285-295); Phosphorus 4.8 mg/dL (2.5-4.5); Potassium 3.5 mmol/L (3.5-5.1); Sodium 140 mmol/L (136-145); Total Bilirubin 0.2 mg/dL (0.15-1.2); Total Protein 5.5 g/dL (6.6-8.7)
[2024-01-22 05:09] LABS: NT Pro B Type Natriuretic Pept 4689 pg/mL (0-125)
[2024-01-22] MEDS: metoprolol tartrate 50 mg Tablet 100 MG PO (08:47)
[2024-01-22] MEDS: apixaban 5 mg Tablet PO (08:48)
[2024-01-22] MEDS: amiodarone 200 mg Tablet 400 MG PO (08:48)
[2024-01-22] MEDS: amoxicillin-clav 875-125 mg Tablet 1 TAB PO (08:55)
[2024-01-22] MEDS: doxycycline 100 mg Tablet PO (08:55)
[2024-01-22] MEDS: predniSONE 20 mg Tablet 40 MG PO (08:55)
[2024-01-22] MEDS: sennosides-docusate Tablet 1 TAB PO (08:55)
[2024-01-22] MEDS: FUROsemide 10 mg/mL SDV 2mL 20 MG IVP (08:56)
[2024-01-22] MEDS: magnesium lactate 84 mg Tablet PO (08:56)
--- NOTE | 2024-01-22 09:38 | PC.SOCIAL ---
IMM Update Pg. 2 of IMM updated. Initialed, dated, and timed. Copy provided at bedside.
--- NOTE | 2024-01-22 11:07 | PM.DCS ---
Discharge Providers Date of Admission: 01/19/24 09:44 Date of Discharge: January 22, 2024 Attending Provider at Admission: Bam Diane MD Attending Provider at Discharge: Raman Parker MD Primary Care Provider: DIONI Bruno Diagnoses at Discharge Discharge Diagnosis (1) Aortic insufficiency: Status: Acute Qualifiers: Cardiac valve disease etiology: etiology unspecified Qualified Code(s): I35.1 - Nonrheumatic aortic (valve) insufficiency Permanent problem details: dx 10/14/02 Dr Kam Martinez (2) Essential hypertension: Status: Chronic (3) Atrial flutter: Status: Acute (4) Venous insufficiency of both lower extremities: Status: Acute (5) Type 2 diabetes mellitus: Status: Chronic Qualifiers: Diabetes mellitus intermediate frame tender insulin use: without longterm use Diabetes mellitus complication status: without complication Qualified Code(s): E11.9 - Type 2 diabetes mellitus without complications (6) 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: Status: Acute (7) Morbid obesity with BMI of 45.0-49.9, adult: Status: Acute (8) Gastroesophageal reflux disease without esophagitis: Status: Acute (9) COPD (chronic obstructive pulmonary disease): Status: Chronic Qualifiers: COPD type: unspecified COPD Qualified Code(s): J44.9 - Chronic obstructive pulmonary disease, unspecified (10) Small cell lung cancer: Status: Acute (11) Radiation pneumonitis: Status: Acute Reason for Visit Reason for Visit: low o2 Hospital Course Hospital Course Janet Pillai is a 68 year old female currently on radiotherapy for small cell lung cancer presented with chief complaint of generalized weakness fatigue and shortness of breath. In the ER she was diagnosed with A-fib with RVR , CT chest did not show any PE, D-dimer not remarkable for her age and cancer, currently she is on Cardizem drip, stays in RVR, CT chest also showing changes concerning postradiation pneumonitis versus pneumonia she received antibiotics,. Patient is stating that she has finished her chemotherapy and rounds of radiotherapy, she has not been told about the prognosis as per Dr. Jenkins, stating that she is present to the hospital for last 2 to 3 days of worsening of shortness of breath, she has not noticed any fever, nausea vomiting or chest pain but endorsing productive cough brown sputum production, patient is stating that she was visiting someone in [place] when she became short of breath and got intubated at [facility], I have requested records, at the time of my evaluation she is on Cardizem drip, heart rate in 116 A-fib RVR no active chest pain. Blood pressure stable. Pleasant cooperative Currently she is on room air. Patient is stating that her cancer has spread to her hip bone Patient was admitted to [facility] for A-fib with RVR, initially managed on a Cardizem drip, transition to p.o. Cardizem, on her home metoprolol, due to persistent A-fib with RVR, she was transitioned to amiodarone drip, Cardizem was discontinued, she converted to normal sinus rhythm, remained in normal sinus rhythm, on discharge she will be discharged on beta-saba twice daily with amiodarone tapering dose, follow-up with cardiology as outpatient, continue her home Eliquis Patient's hospitalization was complicated with radiation pneumonitis versus pneumonia, she had evidence of dense consolidation within the left upper lobe and superior segment of the left lower lobe, which is in the area of the radiation field and when she received radiation therapy, she was not complaining of any fevers, no chills, no significant CRP, Pro-Tremayne elevation sed rate was 32. Nonetheless I plan to treat her for radiation pneumonitis, discharged on prednisone taper. She was managed with antibiotics initially, remained afebrile ,culture were negative,, will discharge on augmentin for possible pneumonia although I feel unlikely it is pneumonia, however given her immunocompromised state, woulf prefer to treat Follow-up with pulmonary Follow-up with Dr. Jenkins as outpatient Physical Exam Const: COMMON NORMALS: no acute distress and patient oriented x3 Resp: COMMON NORMALS: normal respiratory effort, No retractions, No use of accessory muscles and clear to auscultation bilaterally AUSCULTATION: clear to auscultation bilaterally Cardio: COMMON NORMALS: regular rate, regular rhythm, S1 normal heart sound present and S2 normal heart sound present RATE: regular rate RHYTHM: regular rhythm HEART SOUNDS: S1 normal heart sound present and S2 normal heart sound present GI: COMMON NORMALS: Normal to inspection, nondistended, normoactive bowel sounds present and non-tender Extremity: COMMON NORMALS: no pedal edema Neuro: COMMON NORMALS: patient oriented x3 Psych: COMMON NORMALS: mental status grossly normal Discharge Data Studies Completed and Pending Completed Studies During Hospitalization Category Date Time Status CTA chest [CT angio chest PE protcl [id number]] Stat Cat Scan 01/18/24 17:55 Completed XR chest 1V portable [id number] Stat Exams 01/18/24 16:50 Completed Pending at discharge Category Date Time Status Blood Culture Stat Lab 01/18/24 19:07 Results Blood Culture Stat Lab 01/21/24 17:32 Results Radiology Impressions Chest X-Ray 01/18/24 16:50 IMPRESSION: 1. Right upper lobe pneumonia increased in volume since prior examination. 2. Right side central line extends to the right atrium Chest CTA 01/18/24 17:55 IMPRESSION: 1. No pulmonary embolus. 2. Dense consolidation within the left upper lobe and superior segment of the left lower lobe, similar compared to PET-CT January 16, 2024. Findings may represent pneumonia or acute/subacute postradiation pneumonitis. COMMENTS: The presence of pulmonary emphysema on CT is an independent risk factor for lung cancer. In the absence of a history or active diagnosis of lung cancer, it is recommended that this patient with emphysema be evaluated for enrollment in a low dose CT lung cancer screening program. Laboratory Results WBC 13.84 10^3/uL (3.29-11.43) H 01/22/24 03:46 RBC 3.31 10^6/uL (3.85-5.65) L 01/22/24 03:46 Hgb 9.30 g/dL (11.27-16.99) L 01/22/24 03:46 Hct 31.0 % (36-47) L 01/22/24 03:46 MCV 93.7 fl (85-98) 01/22/24 03:46 MCH 28.1 pg (27-33) 01/22/24 03:46 MCHC 30.0 g/dL (30-55) 01/22/24 03:46 RDW 16.3 % (12.1-15.1) H 01/22/24 03:46 Plt Count 246 10^3/cmm (157-399) 01/22/24 03:46 MPV 10.3 fL (7.4-10.4) 01/22/24 03:46 Neut % (Auto) 79.8 % 01/22/24 03:46 Lymph % (Auto) 10.5 % 01/22/24 03:46 [place] % (Auto) 7.4 % 01/22/24 03:46 Eos % (Auto) 0.1 % 01/22/24 03:46 Baso % (Auto) 0.2 % 01/22/24 03:46 Neut # (Auto) 11.05 10^3/uL (1.8-7.7) H 01/22/24 03:46 Lymph # (Auto) 1.5 10^3/uL (0.8-4.8) 01/22/24 03:46 [place] # (Auto) 1.0 10^3/uL (0.2-0.9) H 01/22/24 03:46 Eos # (Auto) 0.0 10^3/uL (0.0-0.8) 01/22/24 03:46 Baso # (Auto) 0.0 10^3/uL (0.0-0.1) 01/22/24 03:46 Nucleated RBC % (auto) 0.4 % 01/22/24 03:46 Nucleated RBCs # 0.1 /100WBC 01/22/24 03:46 ESR 34 mm/hr (0-15) H 01/19/24 08:54 PT 13.00 SECONDS (12.1-14.9) 01/18/24 16:50 INR 0.95 (0.8-1.2) 01/18/24 16:50 D-Dimer 0.91 ug/mLFEU (0-0.59) H 01/18/24 16:50 Sodium 140 mmol/L (136-145) 01/22/24 03:46 Potassium 3.5 mmol/L (3.5-5.1) 01/22/24 03:46 Chloride 101 mmol/L (98-107) 01/22/24 03:46 Carbon Dioxide 26 mmol/L (22-29) 01/22/24 03:46 Anion Gap 16.5 (5-19) 01/22/24 03:46 BUN 31 mg/dL (8-23) H 01/22/24 03:46 Creatinine 1.1 mg/dL (0.5-0.9) H 01/22/24 03:46 GFR Calculation 49.7 mL/min (90-130) L 01/22/24 03:46 Glucose 165 mg/dL (65-115) H 01/22/24 03:46 Calculated Osmolality 300 mOsm/kg (285-295) H 01/22/24 03:46 Calcium 9.0 mg/dL (8.5-10.5) 01/22/24 03:46 Phosphorus 4.8 mg/dL (2.5-4.5) H 01/22/24 03:46 Magnesium 1.6 mg/dL (1.7-2.3) L 01/22/24 03:46 Total Bilirubin 0.2 mg/dL (0.15-1.2) 01/22/24 03:46 AST 13 U/L (0-32) 01/22/24 03:46 ALT 36 U/L (0-33) H 01/22/24 03:46 Alkaline Phosphatase 62 U/L (35-105) 01/22/24 03:46 Troponin T Baseline 39 ng/L (0-10) H 01/18/24 16:50 Troponin T 120 Minute 32.24 ng/L (0-10) H 01/18/24 18:39 Delta Troponin T -6.76 ABS# (0-10) L 01/18/24 18:39 Troponin T Hi Sens 6Hr 46.97 ng/L (0-10) H 01/18/24 23:33 Troponin T Hi Sens 6Hr Delta 7.97 ng/L (0-12) 01/18/24 23:33 C-Reactive Protein 45.9 mg/L (0.0-4.9) H 01/19/24 08:54 NT-Pro-B Natriuret Pep 4689 pg/mL (0-125) H 01/22/24 03:46 Total Protein 5.5 g/dL (6.6-8.7) L 01/22/24 03:46 Albumin 3.3 g/dL (3.5-5.2) L 01/22/24 03:46 Globulin 2.2 g/dL (1.3-4.6) 01/22/24 03:46 Procalcitonin 0.04 ng/mL (0-0.5) 01/19/24 08:54 TSH 2.31 uIU/mL (0.27-4.20) 01/18/24 18:39 Urine Color Yellow (Yellow) 01/18/24 17:35 Urine Appearance Clear (CLEAR) 01/18/24 17:35 Urine pH 5 (5-7) 01/18/24 17:35 Ur Specific [place] 1.010 (1.005-1.030) 01/18/24 17:35 Urine Protein Neg (Negative) 01/18/24 17:35 Urine Glucose (UA) Norm (Normal) 01/18/24 17:35 Urine Ketones Negative (Negative) 01/18/24 17:35 Urine Blood Neg (Negative) 01/18/24 17:35 Urine Nitrate Negative (Negative) 01/18/24 17:35 Urine Bilirubin Neg (Negative) 01/18/24 17:35 Urine Urobilinogen Norm mg/dL (Negative) 01/18/24 17:35 Ur Leukocyte Esterase Negative (Negative) 01/18/24 17:35 Vitals Last Vital Signs Temp 97.8 F 01/22/24 07:30 Pulse 73 01/22/24 07:31 Resp 18 01/22/24 07:31 BP 173/92 01/22/24 07:30 Pulse Ox 99 01/22/24 07:31 O2 Del Method Nasal Cannula 01/22/24 07:31 O2 Flow Rate 1 01/22/24 07:31 Discharge Plan Discharge Patient Disposition: Home Condition: Stable Prescriptions: New amoxicillin-pot clavulanate 875-125 mg Tablet 1 tab PO BID 7 Days Qty: 14 0RF amiodarone [Pacerone] 200 mg Tablet See Rx Instructions .ROUTE .COMPLEX Qty: 60 0RF Rx Instructions: 1 tab twice daily for 1 week, followed by 1 tab daily magnesium L-lactate [Magtab] 84 mg Tablet Extended Release 84 mg PO Q12H 30 Days Qty: 60 0RF prednisone 10 mg tablet 10 mg PO DIRECTED Qty: 53 0RF Rx Instructions: 4 tabs a day for 5 days, 3 tabs for 5 days, 2 tabs for 5 days, 1 tab for 5 days, 0.5tab for 5 days Continued aspirin 81 mg tablet,delayed release (DR/EC) 81 mg PO QAM Hold Instructions: Resume on 01/13/24. nitroglycerin 0.4 mg tablet, sublingual 0.4 mg sublingual Q5M PRN (Reason: chest pain) Qty: 25 2RF Rx Instructions: do not exceed 3 doses per episode Stiolto Respimat 2.5-2.5 mcg/actuation mist 2 puff inhalation DAILY Qty: 4 3RF metoprolol tartrate 50 mg tablet 100 mg PO BID ezetimibe 10 mg tablet 10 mg PO DAILY rosuvastatin 40 mg tablet 40 mg PO DAILY Eliquis 5 mg tablet 5 mg PO BID Hold Instructions: Resume on 01/13/24. albuterol sulfate 90 mcg/actuation HFA aerosol inhaler 2 puff inhalation Q6H PRN (Reason: Shortness Of Breath) ondansetron HCl 8 mg tablet 8 mg PO Q8H PRN (Reason: nausea and vomiting) Qty: 30 0RF Rx Instructions: G[employer] TOMORROW cholecalciferol (vitamin D3) 1,250 mcg (50,000 unit) capsule See Rx Instructions .ROUTE .COMPLEX Qty: 12 1RF Dose Instruction: TAKE ONE CAPSULE BY MOUTH EVERY monday AT 9am Rx Instructions: TAKE ONE CAPSULE BY MOUTH EVERY monday AT 9am potassium chloride 20 mEq tablet extended release 20 meq PO DAILY Qty: 5 0RF Rx Instructions: Patient to take dose with lasix for 5 days. duloxetine 20 mg capsule,delayed release(DR/EC) 20 mg PO BID 90 Days Qty: 180 0RF pantoprazole 40 mg tablet,delayed release (DR/EC) See Rx Instructions .ROUTE .COMPLEX Qty: 90 0RF Dose Instruction: TAKE ONE TABLET BY MOUTH DAILY FOR 90 DAYS Rx Instructions: TAKE ONE TABLET BY MOUTH DAILY FOR 90 DAYS furosemide 40 mg tablet 40 mg PO DAILY cetirizine 5 mg Tablet 5 mg PO DAILY PRN (Reason: Allergy Symptoms) amlodipine 10 mg tablet See Rx Instructions .ROUTE .COMPLEX Qty: 90 3RF Dose Instruction: TAKE ONE TABLET BY MOUTH EVERY DAY Rx Instructions: TAKE ONE TABLET BY MOUTH EVERY DAY Held hydroxychloroquine 200 mg tablet 200 mg PO BID Qty: 180 1RF Hold Instructions: Resume on 02/12/24. hold for 4 weeks, until prednisone completed Discontinued hydralazine 50 mg tablet 50 mg PO BID losartan-hydrochlorothiazide 100-25 mg tablet 1 tab PO DAILY No Action (DME) Diabetic Shoes See Rx Instructions .ROUTE .MEDSUPPLY Qty: 1 0RF Rx Instructions: As directed, with 3 pairs of inserts J P [employer] O (DME) pen needle, diabetic [Comfort EZ Pen Leo] 32 gauge x 5/16 needle See Rx Instructions .Route Qty: 100 0RF Rx Instructions: daily (DME) PORTABLE OXYGEN CONCENTRATOR AND SUPPLIES See Rx Instructions .Route .MEDSUPPLY Qty: 1 0RF Rx Instructions: As directed (DME) blood sugar diagnostic Strip See Rx Instructions .Route Qty: 100 0RF Rx Instructions: use to check blood sugars once daily (DME) lancets [Accu-Chek Softclix Lancets] Misc See Rx Instructions .Route Qty: 200 0RF Rx Instructions: use to check blood sugar once daily (DME) Diabetic Shoes and 3 inserts See Rx Instructions .Route .MEDSUPPLY Qty: 1 0RF Rx Instructions: As directed by HOME Discharge Orders: Discharge Order (Routine); Ordered 01/22/24 Ordered By: Raman Parker Referrals: Thiago Rodriguez M.D [Physician] - 4-7 days Teresa Clifford FNP [Primary Care Provider] - 01/26/24 11:00 am Pedro Jenkins MD [Hospitalist] - 4-7 days Discharge Diet: Cardiac Discharge Activity: Resume usual activity Patient Instructions: Prednisone (By mouth), Amoxicillin/Clavulanate Potassium (By mouth) (Augmentin, Augmentin..., Amiodarone (By mouth) (Cordarone, Pacerone), Opioid Safety Activity Restrictions/Additional Instructions: - If you have any chest pain or palpitations, please go to emergency room ? Please follow Dr. Jenkins ? Please follow-up with cardiology -I have held her hydralazine, losartan/hydrochlorothiazide -follow up with primary care Discharge Attestations Time Spent in Discharge Care*: greater than 30 min Quality Metrics Clinical Quality Measures [ No reported AMI, CVA or VTE this stay] Coding Level of Care Code 66975 Total time (in minutes) for Discharge: 45 Diagnoses Aortic valve insufficiency, etiology of cardiac valve disease unspecified I35.1 Cardiac valve disease etiology: etiology unspecified Essential hypertension I10 Atrial flutter I48.92 Venous insufficiency of both lower extremities I87.2 Type 2 diabetes mellitus without complication, without long-term current use of insulin E11.9 Diabetes mellitus intermediate frame tender insulin use: without longterm use Diabetes mellitus complication status: without complication 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
[2024-01-22] MEDS: cetirizine 10 mg Tablet PO (11:41)
[2024-01-22] MEDS: amlodipine 10 mg Tablet PO (11:41)
[2024-01-22] MEDS: morphine IR 15 mg Tablet PO (11:41)
[2024-01-22 12:00] LABS: Glucose Point of Care 154 mg/dL (70-110)
--- NOTE | 2024-01-22 14:54 | PC.NURSE ---
Discharge Note Patient discharged to home via POV accompanied by spouse. Discharge instructions reviewed with patient and/or patient intake representative. Mobile pharmacy medications and/or prescriptions provided. Belongings/home medications returned. IV catheter removed, port de-accessed. VS stable upon departure.
== END 2024-01-22 14:58 | disposition home or self-care (01) | DRG 206 ==
LOC: ER 19:22 → CSU 21:17
PROVIDERS: Admitting Provider Internal Medicine; Emergency Provider Emergency Medicine; PCP Registered Nurse; Visit Provider Family Medicine
DX: J70.0 Acute pulmonary manifestations due to radiation (principal); C34.90 Malignant neoplasm of unspecified part of unspecified bronchus or lung; Z68.42 Body mass index [BMI] 45.0-49.9, adult; D84.9 Immunodeficiency, unspecified; I48.92 Unspecified atrial flutter; I48.91 Unspecified atrial fibrillation; I35.1 Nonrheumatic aortic (valve) insufficiency; I10 Essential (primary) hypertension; I87.2 Venous insufficiency (chronic) (peripheral); E11.29 Type 2 diabetes mellitus with other diabetic kidney complication; N28.9 Disorder of kidney and ureter, unspecified; E66.01 Morbid (severe) obesity due to excess calories; K21.9 Gastro-esophageal reflux disease without esophagitis; J44.9 Chronic obstructive pulmonary disease, unspecified; Y84.2 Radiological procedure and radiotherapy as the cause of abnormal reaction of the patient, or of later complication, without mention of misadventure at the time of the procedure; F41.9 Anxiety disorder, unspecified; F32.A Depression, unspecified; E78.5 Hyperlipidemia, unspecified; Z79.01 Long term (current) use of anticoagulants; Z87.891 Personal history of nicotine dependence; Z79.82 Long term (current) use of aspirin; Z95.5 Presence of coronary angioplasty implant and graft; Z92.21 Personal history of antineoplastic chemotherapy
CPT/HCPCS: 36415; 36416; 36591; 71045; 71275; 80048; 80053; 81003; 82962; 83735; 83880; 84100; 84145; 84443; 84484; 85025; 85378; 85610; 85651; 86140; 87040; 87070; 87150; 87205; 93005; 94660; 96365; 96366; 96367; 96376; 99291; G0378; J0283; J0456; J0696; J1100; J1940; J2543; J2919; J3490; J7030; J7040; J7050; J7512; Q9967

== ENCOUNTER 2024-01-29 08:36 | Oncology outpatient (recurring) (ONCR) | payer MEDICARE, SELFPAY | END 2024-02-29 09:46 | disposition home or self-care (01) | PROVIDERS: Absent Provider Internal Medicine; PCP Registered Nurse; Visit Provider Internal Medicine Hematology & Oncology | DX: C34.02 Malignant neoplasm of left main bronchus; C79.51 Secondary malignant neoplasm of bone; J70.0 Acute pulmonary manifestations due to radiation; I10 Essential (primary) hypertension; Z92.3 Personal history of irradiation; Z87.891 Personal history of nicotine dependence; Z79.899 Other long term (current) drug therapy; Z79.52 Long term (current) use of systemic steroids; Z79.01 Long term (current) use of anticoagulants; Z95.828 Presence of other vascular implants and grafts | CPT/HCPCS: 99214 ==

== ENCOUNTER → 2024-01-30 15:39 | Outpatient (BNVA) | payer MEDICARE, SELFPAY | PROVIDERS: PCP Registered Nurse; Visit Provider Internal Medicine Critical Care Medicine | DX: J96.11 Chronic respiratory failure with hypoxia (principal); J44.9 Chronic obstructive pulmonary disease, unspecified; C34.02 Malignant neoplasm of left main bronchus; J70.0 Acute pulmonary manifestations due to radiation; J98.4 Other disorders of lung | CPT/HCPCS: 99214 ==

== ENCOUNTER 2024-02-07 21:33 | Inpatient (IN) | payer MEDICARE, SELFPAY ==
--- NOTE | 2024-02-07 21:36 | ECG_ITS ---
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 Measurements Intervals [place] Rate: 145 P: 0 DE: 0 QRS: 248 QRSD: 146 T: 34 QT: 329 QTc: 512 Interpretive Statements ATRIAL FLUTTER WITH RAPID VENTRICULAR RESPONSE RIGHT AXIS DEVIATION [QRS AXIS > 100] RIGHT BUNDLE BRANCH BLOCK [120+ ms QRS DURATION, UPRIGHT V1, 40+ ms S IN I/aVL/V4/V5/V6] ST DEPRESSION, CONSIDER SUBENDOCARDIAL INJURY [0.1+ mV ST DEPRESSION] Compared to ECG 01/18/2024 23:35:30 Right-axis deviation now present ST (T wave) deviation now present Atrial fibrillation no longer present Left anterior fascicular block no longer present Myocardial infarct finding no longer present T-wave abnormality no longer present Possible ischemia no longer present Electronically Signed On 02-08-2024 8:06:00 CDT by Thiago Rodriguez M.D. [id number]
[2024-02-07 21:43] VITALS: PULSE 145; RESP 22; TEMP 36.6; O2SAT 97; BMI 44.6
--- NOTE | 2024-02-07 21:58 | XRR_ITS ---
PROCEDURE INFORMATION: Exam: XR Chest Exam date and time: 02/07/2024 10:01 PM Age: 68 years old Clinical indication: Shortness of breath and other: High hr; Prior surgery; Surgery date: 1-6 months; Surgery type: Port; Additional info: Palpitations TECHNIQUE: Imaging protocol: Radiologic exam of the chest. Views: 1 view. COMPARISON: CT angio chest PE protcl [id number] 01/18/2024 6:22 PM FINDINGS: Tubes, catheters and devices: Right-sided chest port tip overlies the cavoatrial junction. Lungs: Persistent patchy opacities in the left lung apex which may represent pneumonia or postradiation pneumonitis. Pleural spaces: Unremarkable. No pleural effusion. No pneumothorax. Heart/Mediastinum: Cardiomegaly. Bones/joints: Unremarkable. XR/XR chest 1V portable [id number] IMPRESSION: Persistent patchy opacities in the left lung apex which may represent pneumonia or postradiation pneumonitis. No new focal consolidations.
[2024-02-07] MEDS: amiodarone 50 mg/mL SDV 3 mL 150 MG IVP (22:11)
[2024-02-07 22:33] LABS: Basophils # 0.1 10^3/uL (0.0-0.1); Basophils % 0.7 %; Eosinophils # 0.1 10^3/uL (0.0-0.8); Eosinophils % 0.6 %; Hematocrit 45.2 % (36-47); Lymphocytes # 1.7 10^3/uL (0.8-4.8); Lymphocytes % 14.1 %; Mean Corpuscular HGB Conc 30.5 g/dL (30-55); Mean Corpuscular Hemoglobin 27.7 pg (27-33); Mean Corpuscular Volume 90.6 fl (85-98); Mean Platelet Volume 9.9 fL (7.4-10.4); Monocytes % 8.4 %; Neutrophils # 9.15 10^3/uL (1.8-7.7); Nucleated Red Blood Cells % 0 %; Platelet Count 280 10^3/cmm (157-399); Red Blood Count 4.99 10^6/uL (3.85-5.65); Red Cell Distribution Width 16.4 % (12.1-15.1)
[2024-02-07 22:35] VITALS: BP 136/103; PULSE 105; RESP 18; O2SAT 98
[2024-02-07 22:56] LABS: Troponin(5th) Baseline 25 ng/L (0-10)
[2024-02-07 22:58] LABS: Lactic Sepsis W/Reflex 1.9 mmol/L (0.5-2.2)
[2024-02-07 23:00] VITALS: BP 152/128; PULSE 143; RESP 13; O2SAT 98
[2024-02-07 23:05] LABS: Alanine Aminotransferase 21 U/L (0-33); Albumin Level 4.1 g/dL (3.5-5.2); Alkaline Phosphatase 74 U/L (35-105); Anion Gap 19.6 (5-19); Aspartate Amino Transferase 12 U/L (0-32); Blood Urea Nitrogen 30 mg/dL (8-23); C Reactive Protein 10.2 mg/L (0.0-4.9); Calcium 9.5 mg/dL (8.5-10.5); Carbon Dioxide 27 mmol/L (22-29); Chloride 101 mmol/L (98-107); Creatinine Clr Calc Pharmacy 72.8134; Globulin 2.5 g/dL (1.3-4.6); Glomerular Filtration Rate 49.7 mL/min (90-130); Glucose 150 mg/dL (65-115); NT Pro B Type Natriuretic Pept 3403 pg/mL (0-125); Osmolality Calculated 305 mOsm/kg (285-295); Potassium 4.6 mmol/L (3.5-5.1); Sodium 143 mmol/L (136-145); Total Bilirubin 0.2 mg/dL (0.15-1.2); Total Protein 6.6 g/dL (6.6-8.7)
--- NOTE | 2024-02-07 23:10 | ED_ITS ---
HPI - Arrhythmia/Palpitations 2 General: Chief Complaint: Arrhythmia/Palpitations Stated Complaint: heart racing SOB chest pain left arm Time Seen by Provider: 02/07/24 21:52 History of Present Illness: 71-year-old female with history of morbi d obesity, hypertension, chronic kidney disease, COPD and recently diagnosed atrial fibrillation admission to the hospital she says with pneumonia and A-fib. She was started on amiodarone and Eliquis. Says she was doing well at home but this evening she developed tachycardia again. She is having shortness of breath and chest discomfort. No fevers. No worsening cough. No abdominal pain. No nausea or vomiting. Related Data Home Medications Medication Instructions Recorded Confirmed aspirin 81 mg tablet,delayed 81 mg PO QAM 06/21/19 01/30/24 release albuterol sulfate 90 mcg/actuation 2 puff inhalation Q6H PRN 05/17/23 01/30/24 aerosol inhaler Shortness Of Breath ezetimibe 10 mg tablet 10 mg PO DAILY 12/21/23 01/30/24 furosemide 40 mg tablet 40 mg PO DAILY 01/09/24 01/30/24 Previous Rx's Medication Instructions Recorded Diabetic Shoes #1 ea 03/17/21 blood sugar diagnostic #100 ea 01/03/22 lancets (Accu-Chek Softclix #200 ea 01/03/22 Lancets) nitroglycerin 0.4 mg sublingual 0.4 mg sublingual Q5M PRN chest 02/24/22 tablet pain #25 tabs Diabetic Shoes and 3 inserts #1 ea 12/28/22 pen needle, diabetic 32 gauge x #100 ea 05/16/23/ (Comfort EZ Pen [place]) hydroxychloroquine 200 mg tablet 200 mg PO BID #180 tabs 05/23/23 ondansetron HCl 8 mg tablet 8 mg PO Q8H PRN nausea and 09/05/23 vomiting #30 tabs cholecalciferol (vitamin D3) 1,250 See Rx Instructions .Route 11/06/23 mcg (50,000 unit) capsule .COMPLEX #12 caps tiotropium 2.5 mcg-olodaterol 2.5 2 puff inhalation DAILY #4 grams 11/10/23 mcg/actuation mist for inhalation (Stiolto Respimat) PORTABLE OXYGEN CONCENTRATOR AND #1 ea 11/16/23 SUPPLIES duloxetine 20 mg capsule,delayed 20 mg PO BID 90 days #180 caps 11/24/23 release pantoprazole 40 mg tablet,delayed See Rx Instructions .Route 01/02/24 release .COMPLEX #90 tabs amiodarone 200 mg tablet (Pacerone) See Rx Instructions .Route 01/22/24 .COMPLEX #60 tabs amlodipine 10 mg tablet See Rx Instructions .Route 01/22/24 .COMPLEX #90 tabs cetirizine 5 mg tablet 5 mg PO DAILY PRN Allergy Symptoms 01/22/24 7 days #7 tabs magnesium L-lactate 84 mg 84 mg PO Q12H 30 days #60 tabs 01/22/24 tablet,extended release (Magtab) potassium chloride 20 mEq 20 meq PO DAILY 90 days #90 tabs 01/26/24 tablet,extended release rosuvastatin 40 mg tablet 40 mg PO DAILY 90 days #90 tabs 01/26/24 apixaban 5 mg tablet (Eliquis) 5 mg PO BID #60 tabs 01/29/24 metoprolol tartrate 50 mg tablet 50 mg PO BID #60 tabs 01/29/24 prednisone 20 mg tablet 40 mg (2 x 20 mg) PO DAILY #60 tabs 01/29/24 Allergies Allergy/AdvReac Type Severity Reaction Status Date / Time Sulfa (Sulfonamide Allergy Unknown Verified 01/30/24 15:57 Antibiotics) sulfamethoxazole Allergy itching Verified 01/30/24 15:57 [From Bactrim] trimethoprim [From Bactrim] Allergy itching Verified 01/30/24 15:57 Review of Systems 2 Narrative: Constitutional symptoms: Negative except as documented in HPI. Skin symptoms: Negative except as documented in HPI. Eye symptoms: Negative except as documented in HPI. ENMT symptoms: Negative except as documented in HPI. Respiratory symptoms: Negative except as documented in HPI. Cardiovascular symptoms: Negative except as documented in HPI. Gastrointestinal symptoms: Negative except as documented in HPI. Genitourinary symptoms: Negative except as documented in HPI. Musculoskeletal symptoms: Negative except as documented in HPI. Neurologic symptoms: Negative except as documented in HPI. Psychiatric symptoms: Negative except as documented in HPI. Endocrine symptoms: Negative except as documented in HPI. PFSH ED 2 PFSH: Medical History Small cell lung cancer Port-A-Cath in place Mixed connective tissue disease Advanced directives, counseling/discussion Former heavy cigarette smoker (20-39 per day) Quit in 2009 Aortic insufficiency dx 10/14/02 Dr Kam Martinez Arthralgia of both knees Venous insufficiency of both lower extremities Opioid contract exists Personal history of nicotine dependence Quit 2010 History of prior cigarette smoking Obesity Hypothyroidism (acquired) Chronic joint pain Anxiety and depression Hyperlipidemia Common migraine with intractable migraine Left Achilles tendinitis Back pain, lumbosacral Type 2 diabetes mellitus Essential hypertension COPD (chronic obstructive pulmonary disease) Gastroesophageal reflux disease without esophagitis Surgical History Stented coronary artery 2 stents done 02/16/96 in [place] History of knee replacement 2009 History of delivery Family History Other CAD (coronary artery disease) Cancer Diabetes Denies family history of Rheumatoid arthritis Lupus Hyperlipidemia Chronic kidney disease (CKD) Hypertension Stroke Social History Smoking and tobacco/nicotine status: former use of tobacco/nicotine Quit status (tobacco/nicotine): has quit using Year quit tobacco: 2009 Former quit date comment: 3 ppd X 37 years Alcohol intake: never Substance/Drug Use: never Lives independently: No Household members: spouse Marital status: Current occupational status: unemployed Do you think of yourself as: Straight/Heterosexual Current gender identity: Female Physical Exam 2 Narrative: EXAM NARRATIVE: General: Alert, no acute distress. Skin: Warm, dry. Head: Normocephalic, atraumatic. Neck: Supple, trachea midline. Eye: Extraocular movements are intact. Ears, nose, mouth and throat: mucosa moist. Cardiovascular: Tachycardic, irregularly irregular, Normal peripheral perfusion. Respiratory: Lungs are clear to auscultation, respirations are non-labored, breath sounds are equal, Symmetrical chest wall expansion. Gastrointestinal: Soft, Nontender, Non distended Musculoskeletal: Normal ROM, no deformity. Neurological: Alert and oriented, No focal neurological deficit observed. Psychiatric: Cooperative, appropriate mood & affect. Course 2 Vital Signs: Vital signs: Vital Signs Temperature 98 F 02/07/24 21:43 Pulse Rate 143 H 02/07/24 23:00 Respiratory Rate 13 02/07/24 23:00 Blood Pressure 152/128 02/07/24 23:00 Pulse Oximetry 98 02/07/24 23:00 Oxygen Delivery Me thod Nasal Cannula 02/07/24 23:00 Oxygen Flow Rate 1 02/07/24 23:00 MDM - Arrhythmia/Palpitations Medical Decision Making Medical decision making: Differential diagnosis including but not limited to and based on the above HPI, review of systems and physical exam: for patient with palpitations: atrial fibrillation with rapid ventricular response. ventricular tachycardia. sinus tachycardia. PVCs. also concern for underlying issues causing tachycardia. Infection, electrolyte abnormalities and thyroid issues Orders placed to evaluate differential diagnosis based on the above differential, HPI and physical exam EKG: Time 2135. Rate 145. Atrial fibrillation with rapid ventricular response, No ST-T changes, no ectopy, This was reviewed and interpreted by myself the ER physician At 2140. Lab Review: Laboratory results were reviewed and interpreted by myself the emergency room physician. Mild leukocytosis with a white count of 12. No anemia. Hemoglobin is 13.8. Creatinine are stable at 30 and 1.1. Patient has chronic kidney disease. Urinalysis is negative for infection. Troponin is 25 which is lower than previous. proBNP is 3400 Chest x-ray: Cardiomegaly. Persistent opacities in the left upper lobe which appears somewhat improved from previous but are still present. This was reviewed and interpreted by myself the emergency room physician. I also reviewed the radiology report. I reviewed the patient's medical record. Reexamination Patient's rate has slowed down slightly. She is still irregular and tachycardic. No increased work of breathing. No altered mental status. No focal motor deficits. Consultation: I spoke with Dr. Dunaway who is on-call for the hospitalist who agrees to admission to observation. Assessment and plan: A-fib with RVR -Amiodarone with amiodarone bolus with no effect. I have now given diltiazem with a diltiazem drip. This seems to be more effective. -I discussed the patient with the hospitalist on-call who is admitting the patient. - Discussed findings and plan with patient. Answered any questions. - All laboratory values were reviewed and interpreted personally by myself, the ER physician - All imaging was reviewed and interpreted personally by myself, the ER physician. - Evaluation and treatment of this problem were appropriate in the emergency setting Lab Data 02/07/24 22:13 02/07/24 22:13 Radiology Impressions Chest X-Ray 02/07/24 21:58 IMPRESSION: Persistent patchy opacities in the left lung apex which may represent pneumonia or postradiation pneumonitis. No new focal consolidations. Laboratory Results WBC 12.20 10^3/uL (3.29-11.43) H 02/07/24 22:13 RBC 4.99 10^6/uL (3.85-5.65) 02/07/24 22:13 Hgb 13.80 g/dL (11.27-16.99) 02/07/24 22:13 Hct 45.2 % (36-47) 02/07/24 22:13 MCV 90.6 fl (85-98) 02/07/24 22:13 MCH 27.7 pg (27-33) 02/07/24 22:13 MCHC 30.5 g/dL (30-55) 02/07/24 22:13 RDW 16.4 % (12.1-15.1) H 02/07/24 22:13 Plt Count 280 10^3/cmm (157-399) 02/07/24 22:13 MPV 9.9 fL (7.4-10.4) 02/07/24 22:13 Neut % (Auto) 75.0 % 02/07/24 22:13 Lymph % (Auto) 14.1 % 02/07/24 22:13 [place] % (Auto) 8.4 % 02/07/24 22:13 Eos % (Auto) 0.6 % 02/07/24 22:13 Baso % (Auto) 0.7 % 02/07/24 22:13 Neut # (Auto) 9.15 10^3/uL (1.8-7.7) H 02/07/24 22:13 Lymph # (Auto) 1.7 10^3/uL (0.8-4.8) 02/07/24 22:13 [place] # (Auto) 1.0 10^3/uL (0.2-0.9) H 02/07/24 22:13 Eos # (Auto) 0.1 10^3/uL (0.0-0.8) 02/07/24 22:13 Baso # (Auto) 0.1 10^3/uL (0.0-0.1) 02/07/24 22:13 Nucleated RBC % (auto) 0 % 02/07/24 22:13 Nucleated RBCs # 0.0 /100WBC 02/07/24 22:13 Sodium 143 mmol/L (136-145) 02/07/24 22:13 Potassium 4.6 mmol/L (3.5-5.1) 02/07/24 22:13 Chloride 101 mmol/L (98-107) 02/07/24 22:13 Carbon Dioxide 27 mmol/L (22-29) 02/07/24 22:13 Anion Gap 19.6 (5-19) H 02/07/24 22:13 BUN 30 mg/dL (8-23) H 02/07/24 22:13 Creatinine 1.1 mg/dL (0.5-0.9) H 02/07/24 22:13 GFR Calculation 49.7 mL/min (90-130) L 02/07/24 22:13 Glucose 150 mg/dL (65-115) H 02/07/24 22:13 Calculated Osmolality 305 mOsm/kg (285-295) H 02/07/24 22:13 Lactic Acid 1.9 mmol/L (0.5-2.2) 02/07/24 22:13 Calcium 9.5 mg/dL (8.5-10.5) 02/07/24 22:13 Total Bilirubin 0.2 mg/dL (0.15-1.2) 02/07/24 22:13 AST 12 U/L (0-32) 02/07/24 22:13 ALT 21 U/L (0-33) 02/07/24 22:13 Alkaline Phosphatase 74 U/L (35-105) 02/07/24 22:13 Troponin T Baseline 25 ng/L (0-10) H 02/07/24 22:13 C-Reactive Protein 10.2 mg/L (0.0-4.9) H 02/07/24 22:13 NT-Pro-B Natriuret Pep 3403 pg/mL (0-125) H 02/07/24 22:13 Total Protein 6.6 g/dL (6.6-8.7) 02/07/24 22:13 Albumin 4.1 g/dL (3.5-5.2) 02/07/24 22:13 Globulin 2.5 g/dL (1.3-4.6) 02/07/24 22:13 Urine Color Yellow (Yellow) 02/07/24 23:12 Urine Appearance Clear (CLEAR) 02/07/24 23:12 Urine pH 5.0 (5-7) 02/07/24 23:12 Ur Specific [place] 1.024 (1.005-1.030) 02/07/24 23:12 Urine Protein Negative (Negative) 02/07/24 23:12 Urine Glucose (UA) Negative (Normal) 02/07/24 23:12 Urine Ketones Negative (Negative) 02/07/24 23:12 Urine Blood Negative (Negative) 02/07/24 23:12 Urine Nitrate Negative (Negative) 02/07/24 23:12 Urine Bilirubin Negative (Negative) 02/07/24 23:12 Urine Urobilinogen 1.0 mg/dL (Negative) 02/07/24 23:12 Ur Leukocyte Esterase Negative (Negative) 02/07/24 23:12 Urine RBC 0-2 /hpf (0-2) 02/07/24 23:12 Urine WBC 0-5 /hpf (0-5) 02/07/24 23:12 Ur Squamous Epith Cells 0-5 /hpf (0-5) 02/07/24 23:12 Amorphous Sediment Not Reportable 02/07/24 23:12 Urine Bacteria None seen /hpf (NONE) 02/07/24 23:12 Hyaline Casts 0.40 /lpf 02/07/24 23:12 All radiology interpretation(s) finalized by discharge Discharge Plan Discharge Patient Disposition: Placed in Observation Clinical Impression: Atrial fibrillation with rapid ventricular response Coding Level of Care Code ED Market Research Coordinator for [employer] Harris
[2024-02-07 23:19] LABS: Bilirubin Urine Negative (Negative); Blood Urine Negative (Negative); Glucose Urine UA Negative (Normal); Ketones Urine Negative (Negative); Leukocyte Esterase Urine Negative (Negative); Nitrate Urine Negative (Negative); Protein Urine Negative (Negative); Specific Gravity, Urine 1.024 (1.005-1.030); Urine Appearance Clear (CLEAR); Urine Color Yellow (Yellow)
[2024-02-07 23:23] LABS: Bacteria Urine None Seen /hpf; RBC Urine 0-2 /hpf (0-2); Squamous Epithelial Cell Urine 0-5 /hpf (0-5); WBC Urine 0-5 /hpf (0-5)
--- NOTE | 2024-02-07 23:30 | P.HP_ITS ---
Providers/Chief Complaint 2 Primary Care Provider: DIONI Bruno Chief Complaint: heart racing SOB chest pain left arm History of Present Illness Janet Pillai is a 68 year old female with a past medical history significant for small cell lung cancer, mixed connective tissue disorder, tobacco use disorder in remission, hypothyroidism, hyperlipidemia, type 2 diabetes mellitus, COPD, GERD, coronary artery disease, nonrheumatic aortic valve insufficiency, and proximal menstrual atrial fibrillation who presents to the emergency department with shortness of breath x 1 day. Patient states she was in her usual state of health until about noon when she developed worsening shortness of breath. Endorses associated palpitations and chest tightness. Denies chest pain, nausea, fevers or chills. Reports exertion worsens symptoms. Rest improves symptoms. In the emergency department, patient was found to have tachycardia. EKG revealed atrial fibrillation with rapid ventricular rate. Patient was started on Cardizem drip with improvement in heart rate. Of note, patient was recently admitted from January 18 to January 21 for atrial fibrillation with rapid ventricular rate and radiation pneumonitis. Per documentation, she was initially managed on Cardizem drip. Hospital course was complicated by persistent atrial fibrillation for which she was treated with amiodarone with conversion to sinus rhythm. She was also treated for radiation pneumonitis with steroid taper. She was discharged on amiodarone taper and continued on home Lopressor. She also takes apixaban for which she endorses compliance with. Review of Systems 2 Narrative: A complete review of systems was obtained and is negative except as stated in HPI. Medications/Allergies Home Medications Medication Instructions Recorded Confirmed Last Taken Type aspirin 81 mg tablet,delayed 81 mg PO QAM 06/21/19 01/30/24 01/18/24 08:00 History release Diabetic Shoes #1 ea 03/17/21 01/30/24 Unknown Rx blood sugar diagnostic #100 ea 01/03/22 01/30/24 Unknown Rx lancets (Accu-Chek Softclix #200 ea 01/03/22 01/30/24 Unknown Rx Lancets) nitroglycerin 0.4 mg sublingual 0.4 mg sublingual Q5M PRN chest 02/24/22 01/30/24 01/10/24 Rx tablet pain #25 tabs Diabetic Shoes and 3 inserts #1 ea 12/28/22 01/30/24 Unknown Rx pen needle, diabetic 32 gauge x #100 ea 05/16/23 01/30/24 Unknown Rx /16 (Comfort EZ Pen [place]) albuterol sulfate 90 mcg/actuation 2 puff inhalation Q6H PRN 05/17/23 01/30/24 09/06/23 History aerosol inhaler Shortness Of Breath hydroxychloroquine 200 mg tablet 200 mg PO BID #180 tabs 05/23/23 01/30/24 01/18/24 08:00 Rx ondansetron HCl 8 mg tablet 8 mg PO Q8H PRN nausea and 09/05/23 01/30/24 01/10/24 Rx vomiting #30 tabs cholecalciferol (vitamin D3) 1,250 See Rx Instructions .Route 11/06/23 01/30/24 01/17/24 08:00 Rx mcg (50,000 unit) capsule .COMPLEX #12 caps tiotropium 2.5 mcg-olodaterol 2.5 2 puff inhalation DAILY #4 grams 11/10/23 01/30/24 01/17/24 08:00 Rx mcg/actuation mist for inhalation (Stiolto Respimat) PORTABLE OXYGEN CONCENTRATOR AND #1 ea 11/16/23 01/30/24 Unknown Rx SUPPLIES duloxetine 20 mg capsule,delayed 20 mg PO BID 90 days #180 caps 11/24/23 01/30/24 01/17/24 21:00 Rx release ezetimibe 10 mg tablet 10 mg PO DAILY 12/21/23 01/30/24 01/10/24 History pantoprazole 40 mg tablet,delayed See Rx Instructions .Route 01/02/24 01/30/24 01/17/24 21:00 Rx release .COMPLEX #90 tabs furosemide 40 mg tablet 40 mg PO DAILY 01/09/24 01/30/24 01/18/24 08:00 History amiodarone 200 mg tablet (Pacerone) See Rx Instructions .Route 01/22/24 01/30/24 Unknown Rx .COMPLEX #60 tabs amlodipine 10 mg tablet See Rx Instructions .Route 01/22/24 01/30/24 01/17/24 Rx .COMPLEX #90 tabs cetirizine 5 mg tablet 5 mg PO DAILY PRN Allergy Symptoms 01/22/24 01/30/24 Unknown Rx 7 days #7 tabs magnesium L-lactate 84 mg 84 mg PO Q12H 30 days #60 tabs 01/22/24 01/30/24 Unknown Rx tablet,extended release (Magtab) potassium chloride 20 mEq 20 meq PO DAILY 90 days #90 tabs 01/26/24 01/30/24 Unknown Rx tablet,extended release rosuvastatin 40 mg tablet 40 mg PO DAILY 90 days #90 tabs 01/26/24 01/30/24 Unknown Rx apixaban 5 mg tablet (Eliquis) 5 mg PO BID #60 tabs 01/29/24 01/30/24 Unknown Rx metoprolol tartrate 50 mg tablet 50 mg PO BID #60 tabs 01/29/24 01/30/24 Unknown Rx prednisone 20 mg tablet 40 mg (2 x 20 mg) PO DAILY #60 tabs 01/29/24 01/30/24 Unknown Rx Allergies Allergy/AdvReac Type Severity Reaction Status Date / Time Sulfa (Sulfonamide Allergy Unknown Verified 01/30/24 15:57 Antibiotics) sulfamethoxazole Allergy itching Verified 01/30/24 15:57 [From Bactrim] trimethoprim [From Bactrim] Allergy itching Verified 01/30/24 15:57 PFSH Acute 2 PFSH: Medical History Small cell lung cancer Port-A-Cath in place Mixed connective tissue disease Advanced directives, counseling/discussion Former heavy cigarette smoker (20-39 per day) Quit in 2009 Aortic insufficiency dx 10/14/02 Dr Kam Martinez Arthralgia of both knees Venous insufficiency of both lower extremities Opioid contract exists Personal history of nicotine dependence Quit 2010 History of prior cigarette smoking Obesity Hypothyroidism (acquired) Chronic joint pain Anxiety and depression Hyperlipidemia Common migraine with intractable migraine Left Achilles tendinitis Back pain, lumbosacral Type 2 diabetes mellitus Essential hypertension COPD (chronic obstructive pulmonary disease) Gastroesophageal reflux disease without esophagitis Surgical History Stented coronary artery 2 stents done 02/16/96 in [place] History of knee replacement 2010 History of delivery Family History Other CAD (coronary artery disease) Cancer Diabetes Denies family history of Rheumatoid arthritis Lupus Hyperlipidemia Chronic kidney disease (CKD) Hypertension Stroke Social History Smoking and tobacco/nicotine status: former use of tobacco/nicotine Quit status (tobacco/nicotine): has quit using Year quit tobacco: 2009 Former quit date comment: 3 ppd X 37 years Alcohol intake: never Substance/Drug Use: never Lives independently: No Household members: spouse Marital status: Current occupational status: unemployed Do you think of yourself as: Straight/Heterosexual Current gender identity: Female Vitals/I&O/Wt Last Vital Signs Temp 98 F 02/07/24 21:43 Pulse 143 H 02/07/24 23:00 Resp 13 02/07/24 23:00 BP 152/128 02/07/24 23:00 Pulse Ox 98 02/07/24 23:00 O2 Del Method Nasal Cannula 02/07/24 23:00 O2 Flow Rate 1 02/07/24 23:00 Weight last 48 hrs Weight 133.356 kg Physical Exam 2 Narrative: General: Patient is awake and alert. Head: Normocephalic. Atraumatic. EOM intact. Neck: No JVD. Cardiovascular: Irregularly irregular rhythm with tachycardia. No gallops. No murmurs. Nonpitting lower extremity edema. Lungs: Clear to auscultation, no use of accessory muscles, no crackles or wheezes. Skin: No jaundice. No rashes. Abdomen: Normal bowel sounds, abdomen soft and nontender. Genito Urinary: Genital exam not performed since complaints not related. Rectal: Rectal exam not performed since no symptoms indicated blood loss. Extremities: No cyanosis or clubbing. Musculoskeletal: No swollen or erythematous joints. Neurological: Moves all 4 extremities. No myoclonus. Data 02/07/24 22:13 02/07/24 22:13 Micro: Microbiology 02/07/24 22:43 Blood Culture - Preliminary Blood SPECIMEN COLLECTED 02/07/24 22:13 Blood Culture - Preliminary Blood SPECIMEN COLLECTED A&P Assessment and plan (1) Atrial fibrillation with rapid ventricular response: Patient started on Cardizem drip in ED, will continue for now, noted last time Cardizem failed to control her rate Continue home beta-saba, will increase dose Patient previously responded to amiodarone, she was discharged on a taper Status post IV amiodarone bolus in ED We will consider reinitiating amiodarone pending clinical course Continue therapeutic anticoagulation with apixaban Monitor electrolytes TSH normal in December, will recheck level Continuous telemetry monitoring Consider cardiology consult pending clinical response to above (2) Small cell lung cancer: Status post chemotherapy and radiation Recent radiation pneumonitis treated with steroids noted Admission chest x-ray similar to before with patchy opacities in the left lung apex Check inflammatory markers Continue outpatient follow-up Qualifiers: Laterality: left Lung location: hilum of lung Qualified Code(s): C 34.02 - Malignant neoplasm of left main bronchus (3) COPD (chronic obstructive pulmonary disease): No wheezing on exam Remains at risk for exacerbation Breathing treatments as needed Qualifiers: COPD type: unspecified COPD Qualified Code(s): J44.9 - Chronic obstructive pulmonary disease, unspecified (4) Essential hypertension: Hold Norvasc Continue Lopressor Continue Lasix (5) Type 2 diabetes mellitus: Sliding-scale insulin correction Qualifiers: Diabetes mellitus correction insulin use: without correction use Diabetes mellitus complication status: without complication Qualified Code(s): E11.9 - Type 2 diabetes mellitus without complications Plan DVT prophylaxis: Apixaban CODE STATUS: Full code Attestations 2 Medical Necessity Statement*: Patient presents with chest tightness, found to have paroxysmal atrial fibrillation with backup ventricular rate with expected hospitalization not to cross 2 midnights for management of underlying cardiac arrhythmia. 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
[2024-02-07] MEDS: dilTIAZem 5 mg/mL SDV 5 mL 20 MG IVP (23:33)
[2024-02-07] MEDS: dilTIAZem 100 MG in sodium chloride 0.9% (add-van) 100 ML IV (23:42)
[2024-02-07 23:45] VITALS: BP 101/87; PULSE 105; RESP 18; O2SAT 97
--- NOTE | 2024-02-07 23:58 | ECG_ITS ---
[facility] Test Date: 2024-02-07 Pat Name: Janet Pillai Department: Room: 104 Gender: Female Form Grader: : 1955 Requested By: Jailyn Cox Order Number: [id number] Huitron MD: Thiago Rodriguez M.D. Measurements Intervals [place] Rate: 101 P: 0 DC: 0 QRS: -58 QRSD: 157 T: 254 QT: 343 QTc: 446 Interpretive Statements ATRIAL FIBRILLATION WITH RAPID VENTRICULAR RESPONSE RIGHT BUNDLE BRANCH BLOCK [120+ ms QRS DURATION, UPRIGHT V1, 40+ ms S IN I/aVL/V4/V5/V6] LEFT ANTERIOR FASCICULAR BLOCK [QRS AXIS <= -45, QR IN I, RS IN II] LEFT VENTRICULAR HYPERTROPHY AND ST-T CHANGE [VOLTAGE CRITERIA PLUS ST/T ABNORMALITY] POSSIBLE SEPTAL MYOCARDIAL INFARCTION , OF INDETERMINATE AGE [30 ms Q WAVE IN V1/V2] Compared to ECG 02/07/2024 21:36:45 Left anterior fascicular block now present Left ventricular hypertrophy now present Myocardial infarct finding now present Right-axis deviation no longer present ST (T wave) deviation still present Electronically Signed On 02-08-2024 10:59:22 CDT by Thiago Rodriguez M.D. [id number]
[2024-02-08] VITALS (18 sets, daily range): BP systolic 94–172; BP diastolic 56–87; PULSE 70–106; RESP 15–29; TEMP 36.4–36.9; O2SAT 93–100; BMI 46.1
[2024-02-08 00:30] LABS: Troponin 5 2HR 27.93 ng/L (0-10); Troponin 5 2HR Delta 2.93 ABS# (0-10)
[2024-02-08 00:32] LABS: Adenovirus Not Detected (NOT DETECT); Chlamydia Pneumoniae Not Detected (NOT DETECT); Coronavirus 229E,HKU1,NL63,OC4 Not Detected (NOT DETECT); Human Metapneumovirus Not Detected (NOT DETECT); Human Rhinovirus/Enterovirus Not Detected (NOT DETECT); Influenza A Not Detected (NOT DETECT); Influenza A H1 Not Detected (NOT DETECT); Influenza A H1-2009 Not Detected (NOT DETECT); Influenza A H3 Not Detected (NOT DETECT); Influenza B Not Detected (NOT DETECT); Mycoplasma Pneumoniae Not Detected (NOT DETECT); Parainfluenza Virus Type 1 Not Detected (NOT DETECT); Parainfluenza Virus Type 2 Not Detected (NOT DETECT); Parainfluenza Virus Type 3 Not Detected (NOT DETECT); Parainfluenza Virus Type 4 Not Detected (NOT DETECT); Respiratory Syncytial Virus A Not Detected (NOT DETECT); Respiratory Syncytial Virus B Not Detected (NOT DETECT); SARS-COV-2 Not Detected (NOT DETECT)
[2024-02-08] MEDS: magnesium lactate 84 mg Tablet PO ×2 (01:49→12:16)
--- NOTE | 2024-02-08 03:58 | ECG_ITS ---
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 Measurements Intervals Olla Rate: 93 P: 0 FL: 0 QRS: -59 QRSD: 150 T: 265 QT: 264 QTc: 329 Interpretive Statements ATRIAL FIBRILLATION RIGHT BUNDLE BRANCH BLOCK [120+ ms QRS DURATION, UPRIGHT V1, 40+ ms S IN I/aVL/V4/V5/V6] LEFT ANTERIOR FASCICULAR BLOCK [QRS AXIS <= -45, QR IN I, RS IN II] SEPTAL MYOCARDIAL INFARCTION , PROBABLY OLD [40+ ms Q WAVE IN V1/V2] MODERATE T-WAVE ABNORMALITY, CONSIDER INFERIOR ISCHEMIA [-0.1+ mV T-WAVE IN II/aVF] Compared to ECG 02/07/2024 23:55:08 T-wave abnormality now present Possible ischemia now present Left ventricular hypertrophy no longer present ST (T wave) deviation no longer present Myocardial infarct finding still present Electronically Signed On 02-08-2024 11:02:39 CDT by Thiago Rodriguez M.D. [id number]
[2024-02-08 04:25] LABS: Basophils # 0.1 10^3/uL (0.0-0.1); Basophils % 0.7 %; Eosinophils # 0.1 10^3/uL (0.0-0.8); Eosinophils % 0.8 %; Hematocrit 44.9 % (36-47); Lymphocytes # 1.6 10^3/uL (0.8-4.8); Lymphocytes % 16.7 %; Mean Corpuscular HGB Conc 28.7 g/dL (30-55); Mean Corpuscular Volume 93.9 fl (85-98); Mean Platelet Volume 10.4 fL (7.4-10.4); Monocytes # 0.7 10^3/uL (0.2-0.9); Monocytes % 7.3 %; Neutrophils # 6.85 10^3/uL (1.8-7.7); Neutrophils % 72.7 %; Nucleated Red Blood Cells % 0 %; Platelet Count 237 10^3/cmm (157-399); Red Blood Count 4.78 10^6/uL (3.85-5.65); Red Cell Distribution Width 16.3 % (12.1-15.1); White Blood Count 9.44 10^3/uL (3.29-11.43)
[2024-02-08 04:55] LABS: Erythrocyte Sedimentation Rate 10 mm/hr (0-15)
[2024-02-08 05:08] LABS: Troponin 5 6HR 28.93 ng/L (0-10); Troponin 5 6HR Delta 3.93 ng/L (0-12)
[2024-02-08 05:09] LABS: Blood Urea Nitrogen 31 mg/dL (8-23); Calcium 8.8 mg/dL (8.5-10.5); Carbon Dioxide 19 mmol/L (22-29); Chloride 102 mmol/L (98-107); Creatinine Clr Calc Pharmacy 74.1102; Glomerular Filtration Rate 49.7 mL/min (90-130); Glucose 133 mg/dL (65-115); Magnesium 1.9 mg/dL (1.7-2.3); Osmolality Calculated 296 mOsm/kg (285-295); Phosphorus 3.7 mg/dL (2.5-4.5); Sodium 139 mmol/L (136-145)
[2024-02-08 05:19] LABS: Anion Gap 22.7 (5-19); Potassium 4.7 mmol/L (3.5-5.1)
[2024-02-08 05:33] LABS: C Reactive Protein 9.1 mg/L (0.0-4.9); Procalcitonin 0.04 ng/mL (0-0.5); Thyroid Stimulating Hormone 2.54 uIU/mL (0.27-4.20)
[2024-02-08 06:23] LABS: Glucose Point of Care 120 mg/dL (70-110)
[2024-02-08] MEDS: aspirin 81 mg EC Tablet PO (06:23)
[2024-02-08] MEDS: FUROsemide 40 mg Tablet PO (08:31)
[2024-02-08] MEDS: pantoprazole DR 40 mg Tablet PO (08:31)
[2024-02-08] MEDS: duloxetine 20 mg Capsule PO ×2 (08:31→17:36)
[2024-02-08] MEDS: hydroxychloroquine 200 mg Tablet PO ×2 (08:31→17:36)
[2024-02-08] MEDS: atorvastatin 40 mg Tablet 80 MG PO (08:32)
[2024-02-08] MEDS: metoprolol tartrate 50 mg Tablet 100 MG PO ×2 (08:32→20:43)
[2024-02-08] MEDS: potassium chloride ER 10 mEq Tablet 20 MEQ PO (08:32)
[2024-02-08] MEDS: apixaban 5 mg Tablet PO ×2 (08:32→17:36)
[2024-02-08] MEDS: ezetimibe 10 mg Tablet PO (08:32)
--- NOTE | 2024-02-08 09:25 | PC.PHAR ---
PT HAS NEW RX FOR LOSARTAN-HCTZ 100-25MG ONCE DAILY 02/07/24, PAROXETINE 20MG DAILY 02/07/24 30DS, ROSUVASTATIN 40 MG DAILY 01/31/24 90DS, PANTOPRAZOLE 40MG DAILY 01/02/24 90DS. PT STATES DOES NOT TAKE ANY OF THESE MEDICATIONS. LEFT ON CHART WITH FILL DATES AND DAYS SUPPLY.
--- NOTE | 2024-02-08 09:26 | PC.CHAP ---
Pastoral Care Encounter/Spiritual Assessment Type of Contact [] Declined chef & owner visit [] Patient/Family/Request visit [] Outpatient visit [] Follow-up visit [] Physician referral [] Code/Alert [x] Routine visit [] Staff referral [] Actively dying [] Patient sleeping [] Family support [] [] Out of room [] Palliative care [] [] Receiving care in room [] Pre-surgical visit [] Trauma [] Long length of stay [] ICU visit [] Other: Relational/Emotional Strength [x] Patient feels connected with others/family/visitors/staff [] Distress [] Loneliness/isolation [] Abandonment Spirituality of Patient [x] Person of Katie [] Attends Druze of their Katie [x] Believes in Prayer [] Reads Bible or Sabianism materials [] There are Spiritual issues to be addressed [employer] In[employer] Interventions [x] Prayer [x] Active listening [] Non-anxious presence [x] Spiritual/emotional support [] Crisis/trauma care [] Spiritual counseling [] Bereavement support [] Provided bereavement packet [] Provided Bible/devotional materials [] Provided toy/stuffed animal, coloring book to patient or family member [] Provided Communion [] Anointing/[place] [] Salvation [x] Completed spiritual assessment [] Other: Impact on Illness or Injury [] Angry [] Fearful [] Anxious [] Often cries [] Exhaustion [] Unable to work [] Unable to attend judaism [] Unable to walk/stand [] Unable to read [] Unable to drive [] Unable to eat/drink [] Unable to sleep [] Unable to be with family [] Patient intubated [] Other: Summary Time spent with patient 5 min
[2024-02-08 11:47] LABS: Glucose Point of Care 159 mg/dL (70-110)
--- NOTE | 2024-02-08 14:43 | PM.PN ---
Vitals/I&O/Wt Last Vital Signs Temp 98.0 F 02/08/24 11:25 Pulse 70 02/08/24 11:25 Resp 19 H 02/08/24 11:25 BP 123/78 02/08/24 11:25 Pulse Ox 96 02/08/24 11:25 O2 Del Method Room Air 02/08/24 11:25 O2 Flow Rate 1 02/07/24 23:45 02/07/24 02/08/24 02/08/24 22:59 06:59 14:59 Intake Total 754.356 / 754.356 600 / 600 Balance 754.356 / 754.356 600 / 600 Weight last 48 hrs Weight 137.438 kg Weight 137.694 kg Weight 133.356 kg Physical Exam Const: COMMON NORMALS: patient oriented x3 and alert GENERAL APPEARANCE: cooperative ORIENTATION/CONSCIOUSNESS: Yes awake HENMT: COMMON NORMALS: oropharynx normal Neck/C-Spine: COMMON NORMALS: no JVD Resp: COMMON NORMALS: normal respiratory effort and clear to auscultation bilaterally AUSCULTATION: clear to auscultation bilaterally Cardio: COMMON NORMALS: no JVD, regular rhythm, S1 normal heart sound present, S2 normal heart sound present and No murmurs present (Cardio) RHYTHM: regular rhythm HEART SOUNDS: S1 normal heart sound present and S2 normal heart sound present GI: COMMON NORMALS: Normal to inspection, nondistended, normoactive bowel sounds present, Soft to palpation and non-tender PALPATION: Yes Soft to palpation Extremity: COMMON NORMALS: no joint enlargement and no pedal edema Neuro: COMMON NORMALS: patient oriented x3 and moves all extremities SENSORIUM/ORIENTATION: Yes alert Skin: COMMON NORMALS: no rashes or lesions noted GENERAL SKIN EXAM: no rashes or lesions noted Data 02/08/24 04:13 02/08/24 04:13 Micro: Microbiology 02/07/24 22:43 Blood Culture - Preliminary Blood SPECIMEN COLLECTED 02/07/24 22:13 Blood Culture - Preliminary Blood SPECIMEN COLLECTED A&P Assessment and plan (1) Atrial fibrillation with rapid ventricular response: Reviewed vitals, CBC, CMP, magnesium, phosphorus, troponin series, UA, respiratory viral panel, chest x-ray. She is free of chest pain or shortness of breath. Heart rate improving. She is weaning down on Cardizem, still on 5 mg/h. Resumed on metoprolol. Given heart rate still in the 90s on Cardizem drip, discussed risks of amiodarone treatment, needed follow-up with primary provider, resume also amiodarone, at higher dose 400 mg twice daily. Discussed with her follow-up for consideration of weaning off amiodarone to avoid long-term treatment. Continuing on metoprolol will not continue oral Cardizem due to risk of hypotension of combined medications as discussed with her. Reviewed TSH, unremarkable Continuous telemetry monitoring (2) Small cell lung cancer: Reviewed outpatient pulmonology note - Consider holding durvalumab. High risk for pneumonitis. Tapered on steroids. Resume prednisone. Status post chemotherapy and radiation. Recent radiation pneumonitis treated with steroids noted Admission chest x-ray similar to before with patchy opacities in the left lung apex CRP reviewed with mild elevation, better than previously. Continue outpatient follow-up Qualifiers: Laterality: left Lung location: hilum of lung Qualified Code(s): C34.02 - Malignant neoplasm of left main bronchus (3) COPD (chronic obstructive pulmonary disease): Not in exacerbation Remains at risk for exacerbation Breathing treatments as needed Qualifiers: COPD type: unspecified COPD Qualified Code(s): J44.9 - Chronic obstructive pulmonary disease, unspecified (4) Essential hypertension: Hold Norvasc Continue Lopressor Continue Lasix (5) Type 2 diabetes mellitus: Sliding-scale insulin correction Reviewed POC glucose. Continue insulin. CC diet. Qualifiers: Diabetes mellitus manager long term care insulin use: without manager long term care use Diabetes mellitus complication status: without complication Qualified Code(s): E11.9 - Type 2 diabetes mellitus without complications Plan DVT prophylaxis: Apixaban CODE STATUS: Full code Attestations Medical Necessity Statement*: Admission of over 2 midnights is needed for management of recurrent A-fib with RVR, poor response to Cardizem, risk of hypotension with concomitant metoprolol, adjustment of amiodarone dose. 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
[2024-02-08] MEDS: amiodarone 200 mg Tablet 400 MG PO (15:39)
[2024-02-08] MEDS: acetaminophen 325 mg Tablet 650 MG PO (17:39)
[2024-02-08 20:23] LABS: Glucose Point of Care 148 mg/dL (70-110)
[2024-02-09] VITALS (61 sets, daily range): BP systolic 101–144; BP diastolic 44–110; PULSE 65–137; RESP 12–24; TEMP 36.6–36.7; O2SAT 93–100; BMI 46.3
[2024-02-09] MEDS: magnesium lactate 84 mg Tablet PO ×2 (00:26→23:42)
[2024-02-09] MEDS: acetaminophen 325 mg Tablet 650 MG PO ×2 (00:26→23:52)
[2024-02-09] MEDS: oxyCODONE-APAP 5-325 mg Tablet 1 TAB PO ×3 (02:25→20:08)
[2024-02-09 04:31] LABS: Basophils # 0.1 10^3/uL (0.0-0.1); Basophils % 1.1 %; Eosinophils # 0.1 10^3/uL (0.0-0.8); Eosinophils % 1.7 %; Lymphocytes % 14.6 %; Mean Corpuscular HGB Conc 29.3 g/dL (30-55); Mean Corpuscular Hemoglobin 27.5 pg (27-33); Mean Corpuscular Volume 93.8 fl (85-98); Monocytes # 0.5 10^3/uL (0.2-0.9); Monocytes % 6.9 %; Neutrophils # 5.18 10^3/uL (1.8-7.7); Neutrophils % 74.1 %; Nucleated Red Blood Cells % 0 %; Platelet Count 202 10^3/cmm (157-399); Red Cell Distribution Width 16.3 % (12.1-15.1); White Blood Count 6.99 10^3/uL (3.29-11.43)
[2024-02-09 06:29] LABS: Blood Urea Nitrogen 26 mg/dL (8-23); Calcium 8.9 mg/dL (8.5-10.5); Carbon Dioxide 23 mmol/L (22-29); Chloride 104 mmol/L (98-107); Creatinine Clr Calc Pharmacy 81.7295; Glomerular Filtration Rate 55.5 mL/min (90-130); Glucose 132 mg/dL (65-115); Magnesium 1.7 mg/dL (1.7-2.3); Osmolality Calculated 299 mOsm/kg (285-295); Sodium 141 mmol/L (136-145)
[2024-02-09 06:31] LABS: Glucose Point of Care 122 mg/dL (70-110)
[2024-02-09 06:33] LABS: Anion Gap 18.1 (5-19); Potassium 4.1 mmol/L (3.5-5.1)
[2024-02-09] MEDS: aspirin 81 mg EC Tablet PO (06:40)
[2024-02-09] MEDS: potassium chloride ER 10 mEq Tablet 20 MEQ PO (08:40)
[2024-02-09] MEDS: predniSONE 20 mg Tablet 40 MG PO (08:40)
[2024-02-09] MEDS: ezetimibe 10 mg Tablet PO (08:40)
[2024-02-09] MEDS: duloxetine 20 mg Capsule PO ×2 (08:40→17:42)
[2024-02-09] MEDS: apixaban 5 mg Tablet PO ×2 (08:40→17:42)
[2024-02-09] MEDS: amiodarone 200 mg Tablet 400 MG PO ×2 (08:41→17:42)
[2024-02-09] MEDS: pantoprazole DR 40 mg Tablet PO (08:41)
[2024-02-09] MEDS: FUROsemide 40 mg Tablet PO (08:41)
[2024-02-09] MEDS: atorvastatin 40 mg Tablet 80 MG PO (08:41)
[2024-02-09] MEDS: hydroxychloroquine 200 mg Tablet PO ×2 (08:41→17:42)
[2024-02-09] MEDS: metoprolol tartrate 50 mg Tablet 100 MG PO (08:43)
[2024-02-09 11:22] LABS: Glucose Point of Care 130 mg/dL (70-110)
--- NOTE | 2024-02-09 15:08 | P.CONIM_ITS ---
Providers/Reason For Consult 2 Consulting Physician/Specialty*: Dr. Bonilla Pulido Reason for Consult*: Uncontrolled atrial fibrillation Requesting Physician: Bonilla Pulido Attending Physician: Bonilla Pulido Primary Care Provider: DIONI Bruno History of Present Illness History of Present Illness Janet Pillai is a 68 year old female past medical history significant for small cell lung carcinoma chronic atrial fibrillation hypertension presented with weakness shortness of breath noted to be in A-fib with RVR different combination of the medicines were tried including Cardizem beta-saba and amiodarone however patient did not convert back to sinus rhythm. It is the reason we have been asked to assist in her care. Currently denies PND orthopnea but admits to shortness of breath whenever she tried to move heart rate jumps up. Review of Systems 2 Narrative: A complete review of systems was obtained and is negative except as stated in HPI. Eyes: Denies: photophobia ENMT: Denies: enlarged tonsils All/Imm: Denies: acute wheezing Medications/Allergies Home Medications Medication Instructions Recorded Confirmed Last Taken Type aspirin 81 mg tablet,delayed 81 mg PO QAM 06/21/19 02/08/24 02/07/24 History release Diabetic Shoes #1 ea 03/17/21 02/08/24 Unknown Rx blood sugar diagnostic #100 ea 01/03/22 02/08/24 Unknown Rx lancets (Accu-Chek Softclix #200 ea 01/03/22 02/08/24 Unknown Rx Lancets) nitroglycerin 0.4 mg sublingual 0.4 mg sublingual Q5M PRN chest 02/24/22 02/08/24 01/10/24 Rx tablet pain #25 tabs Diabetic Shoes and 3 inserts #1 ea 12/28/22 02/08/24 Unknown Rx pen needle, diabetic 32 gauge x #100 ea 05/16/23 02/08/24 Unknown Rx 5/16 (Comfort EZ Pen [place]) albuterol sulfate 90 mcg/actuation 2 puff inhalation Q6H PRN 05/17/23 02/08/24 09/06/23 History aerosol inhaler Shortness Of Breath hydroxychloroquine 200 mg tablet 200 mg PO BID #180 tabs 05/23/23 02/08/24 01/18/24 08:00 Rx ondansetron HCl 8 mg tablet 8 mg PO Q8H PRN nausea and 09/05/23 02/08/24 01/10/24 Rx vomiting #30 tabs cholecalciferol (vitamin D3) 1,250 See Rx Instructions .Route 11/06/23 02/08/24 02/07/24 Rx mcg (50,000 unit) capsule .COMPLEX #12 caps tiotropium 2.5 mcg-olodaterol 2.5 2 puff inhalation DAILY #4 grams 11/10/23 02/08/24 01/17/24 08:00 Rx mcg/actuation mist for inhalation (Stiolto Respimat) PORTABLE OXYGEN CONCENTRATOR AND #1 ea 11/16/23 02/08/24 Unknown Rx SUPPLIES duloxetine 20 mg capsule,delayed 20 mg PO BID 90 days #180 caps 11/24/23 02/08/24 02/07/24 Rx release ezetimibe 10 mg tablet 10 mg PO DAILY 12/21/23 02/08/24 01/10/24 History pantoprazole 40 mg tablet,delayed See Rx Instructions .Route 01/02/24 02/08/24 01/17/24 21:00 Rx release .COMPLEX #90 tabs amiodarone 200 mg tablet (Pacerone) See Rx Instructions .Route 01/22/24 02/08/24 02/07/24 Rx .COMPLEX #60 tabs amlodipine 10 mg tablet See Rx Instructions .Route 01/22/24 02/08/24 02/07/24 Rx .COMPLEX #90 tabs cetirizine 5 mg tablet 5 mg PO DAILY PRN Allergy Symptoms 01/22/24 02/08/24 02/07/24 Rx 7 days #7 tabs magnesium L-lactate 84 mg 84 mg PO Q12H 30 days #60 tabs 01/22/24 02/08/24 02/07/24 Rx tablet,extended release (Magtab) potassium chloride 20 mEq 20 meq PO DAILY 90 days #90 tabs 01/26/24 02/08/24 02/07/24 Rx tablet,extended release rosuvastatin 40 mg tablet 40 mg PO DAILY 90 days #90 tabs 01/26/24 02/08/24 Unknown Rx apixaban 5 mg tablet (Eliquis) 5 mg PO BID #60 tabs 0802/08/24 02/07/24 Rx metoprolol tartrate 50 mg tablet 50 mg PO BID #60 tabs 01/29/24 02/08/24 02/07/24 Rx prednisone 20 mg tablet 40 mg (2 x 20 mg) PO DAILY #60 tabs 01/29/24 02/08/24 02/07/24 Rx furosemide 20 mg tablet 20 mg PO DAILY 02/08/24 02/08/24 02/07/24 History hydralazine 50 mg tablet 50 mg PO BID 02/08/24 02/08/24 Unknown History losartan 100 1 tab PO DAILY 02/08/24 02/08/24 Unknown History mg-hydrochlorothiazide 25 mg tablet paroxetine HCl 20 mg tablet 20 mg PO DAILY 02/08/24 02/08/24 Unknown History spironolactone 25 mg tablet 25 mg PO BID 02/08/24 02/08/24 Unknown History Allergies Allergy/AdvReac Type Severity Reaction Status Date / Time Sulfa (Sulfonamide Allergy Unknown Verified 01/30/24 15:57 Antibiotics) sulfamethoxazole Allergy itching Verified 01/30/24 15:57 [From Bactrim] trimethoprim [From Bactrim] Allergy itching Verified 01/30/24 15:57 Current Medications Generic Name Dose Route Start Last Admin Trade Name Freq PRN Reason Stop Dose Admin Acetaminophen 650 mg 02/08/24 00:56 02/09/24 00:26 Acetaminophen 325 Mg Tablet PO 650 mg Q6H PRN Administration Mild/Mod Pain Or Temp >/= 101 Amiodarone HCl 400 mg 02/08/24 14:45 02/09/24 08:41 Amiodarone 200 Mg Tablet PO 400 mg BID NOEL Administration Apixaban 5 mg 02/08/24 09:00 02/09/24 08:40 Apixaban 5 Mg Tablet PO 5 mg BID NOEL Administration Aspirin 81 mg 02/08/24 06:00 02/09/24 06:40 Aspirin 81 Mg Ec Tablet PO 81 mg QAM NOEL Administration Atorvastatin Calcium 80 mg 02/08/24 09:00 02/09/24 08:41 Atorvastatin 40 Mg Tablet PO 80 mg DAILY NOEL Administration Duloxetine HCl 20 mg 02/08/24 09:00 02/09/24 08:40 Duloxetine 20 Mg Capsule PO 20 mg BID NOEL Administration Ezetimibe 10 mg 02/08/24 09:00 02/09/24 08:40 Ezetimibe 10 Mg Tablet PO 10 mg DAILY NOEL Administration Furosemide 40 mg 02/08/24 09:00 02/09/24 08:41 Furosemide 40 Mg Tablet PO 40 mg DAILY NOEL Administration Hydroxychloroquine Sulfate 200 mg 02/08/24 09:00 02/09/24 08:41 Hydroxychloroquine 200 Mg Tablet PO 200 mg BID NOEL Administration Diltiazem HCl 100 mg/ Sodium 100 mls @ 0 mls/hr 02/07/24 23:15 02/08/24 15:34 Chloride IV Infused .Q0M NOEL Titration Protocol Per Protocol Magnesium Lactate 84 mg 02/08/24 00:56 02/09/24 14:38 Magnesium Lactate 84 Mg Tablet PO Not Given Q12H NOEL Metoprolol Tartrate 100 mg 02/08/24 09:00 02/09/24 08:43 Metoprolol Tartrate 50 Mg Tablet PO 100 mg BID@0900,2100 NOEL Administration Oxycodone/Acetaminophen 1 tab 02/09/24 01:33 02/09/24 08:41 Oxycodone-Apap 5-325 Mg Tablet PO 1 tab Q6H PRN Administration MODERATE PAIN Pantoprazole Sodium 40 mg 02/08/24 09:00 02/09/24 08:[address] 40 Mg Tablet PO 40 mg DAILY NOEL Administration Potassium Chloride 20 meq 02/08/24 09:00 02/09/24 08:40 Potassium Chloride Er 10 Meq Tablet PO 20 meq DAILY NOEL Administration Prednisone 40 mg 02/09/24 09:00 02/09/24 08:40 Prednisone 20 Mg Tablet PO 40 mg DAILY NOEL Administration PFSH Acute 2 PFSH: Medical History Small cell lung cancer Port-A-Cath in place Mixed connective tissue disease Advanced directives, counseling/discussion Former heavy cigarette smoker (20-39 per day) Quit in 2009 Aortic insufficiency dx 10/14/02 Dr Kam Martinez Arthralgia of both knees Venous insufficiency of both lower extremities Opioid contract exists Personal history of nicotine dependence Quit 2009 History of prior cigarette smoking Obesity Hypothyroidism (acquired) Chronic joint pain Anxiety and depression Hyperlipidemia Common migraine with intractable migraine Left Achilles tendinitis Back pain, lumbosacral Type 2 diabetes mellitus Essential hypertension COPD (chronic obstructive pulmonary disease) Gastroesophageal reflux disease without esophagitis Surgical History Stented coronary artery 2 stents done 02/16/96 in [place] History of knee replacement 2010 History of delivery Family History Other CAD (coronary artery disease) Cancer Diabetes Denies family history of Rheumatoid arthritis Lupus Hyperlipidemia Chronic kidney disease (CKD) Hypertension Stroke Social History Smoking and tobacco/nicotine status: former use of tobacco/nicotine Quit status (tobacco/nicotine): has quit using Year quit tobacco: 2009 Former quit date comment: 3 ppd X 37 years Alcohol intake: never Substance/Drug Use: never Lives independently: No Household members: spouse Marital status: Current occupational status: unemployed Do you think of yourself as: Straight/Heterosexual Current gender identity: Female Dietary Habits: Current diet type/program: regular Caffeine: Yes Caffeine intake frequency: carbonated beverages, coffee and tea Exercise: What type of physical activity do you participate in?: walking Vitals/I&O/Wt Last Vital Signs Temp 97.8 F 02/09/24 11:57 Pulse 100 02/09/24 11:57 Resp 16 02/09/24 11:57 BP 101/62 02/09/24 11:57 Pulse Ox 97 02/09/24 11:57 O2 Del Method Nasal Cannula 02/09/24 11:57 O2 Flow Rate 1 02/09/24 08:15 02/09/24 02/09/24 02/09/24 06:59 14:59 22:59 Intake Total 600 / 1388.417 240 / 240 Balance 600 / 1388.417 240 / 240 Weight last 48 hrs Weight 304 lb 5 oz Weight 304 lb 5 oz Weight 303 lb Weight 303 lb 9 oz Weight 294 lb Physical Exam 2 Const: OTHER: GENERAL: Patient is alert, awake and oriented x3. HEART: Irregularly irregular S1 and S2. No murmur, rub or gallop. LUNGS: Clear to auscultate bilaterally. ABDOMEN: Soft, nontender and nondistended. Positive bowel sounds. No guarding, rebound or tenderness. CENTRAL NERVOUS SYSTEM: Grossly nonfocal. EXTREMITIES: Lower extremities without edema bilaterally. . Data 02/09/24 03:35 02/09/24 05:30 Micro: Microbiology 02/07/24 22:43 Blood Culture - Preliminary Blood NEGATIVE TO DATE 02/07/24 22:13 Blood Culture - Preliminary Blood NEGATIVE TO DATE A&P Assessment and plan (1) Atrial fibrillation with rapid ventricular response: Difficult to control atrial fibrillation due to underlying history of malignancy despite of optimization of medicine and using antiarrhythmics such as amiodarone, it is therefore recommended that we should proceed with cardioversion. Patient is taking Eliquis for the past 5 months regularly and has not missed a dose therefore at this point there is no need of transesophageal echocardiogram. Patient has been explained all risk-benefit and alternative for the procedure she would like to proceed with it. Patient understand risk for stroke bradycardia temporary or permanent pacemaker and intubation. (2) Aortic insufficiency: Stable continue current management and monitoring Qualifiers: Cardiac valve disease etiology: etiology unspecified Qualified Code(s): I35.1 - Nonrheumatic aortic (valve) insufficiency (3) Coronary arteriosclerosis: Appear to be stable continue current regimen (4) Essential hypertension: Well-controlled continue medicine Coding Level of Care Code Acute Code for [facility] Fwd Diagnoses Atrial fibrillation with rapid ventricular response I48.91 Aortic valve insufficiency, etiology of cardiac valve disease unspecified I35.1 Cardiac valve disease etiology: etiology unspecified Coronary arteriosclerosis I25.10 Essential hypertension I10
--- NOTE | 2024-02-09 16:19 | P.ANESASSM_ITS ---
Pre-Anesthetic Assessment Height/Weight: Height 1.73 m Weight 138.034 kg Temp Pulse Resp BP Pulse Ox O2 Del Method O2 Flow Rate 97.8 F 100 16 101/62 97 Nasal Cannula 1 02/09/24 11:57 02/09/24 11:57 02/09/24 11:57 02/09/24 11:57 02/09/24 11:57 02/09/24 11:57 02/09/24 08:15 Was Beta Radha taken within 24 hours: Yes Social No alcohol and No tobacco Airway Submandibular: within normal limits Cervical ROM: Other (limited) Mallampati: Class II Pulmonary Chronic Obstructive Pulmonary Disease (oxygen dependent ), Cough, Exertional Dyspnea, Sleep Apnea and Shortness of Breath CV/HEM Atrial Fibrillation, Coronary Artery Disease (s/p stent x2 ) and Hypertension GI Gastroesophageal Reflux Disease (controlled) Metabolic Diabetes Mellitus, Hyperlipidemia and Morbid Obesity Anesthetic Plan ASA status: 4E Anesthesia: MAC Medications/Allergies Home Medications Medication Instructions Recorded Confirmed Last Taken Type aspirin 81 mg tablet,delayed 81 mg PO QAM 06/21/19 02/08/24 02/07/24 History release Diabetic Shoes #1 ea 03/17/21 02/08/24 Unknown Rx blood sugar diagnostic #100 ea 01/03/22 02/08/24 Unknown Rx lancets (Accu-Chek Softclix #200 ea 01/03/22 02/08/24 Unknown Rx Lancets) nitroglycerin 0.4 mg sublingual 0.4 mg sublingual Q5M PRN chest 02/24/22 02/08/24 01/10/24 Rx tablet pain #25 tabs Diabetic Shoes and 3 inserts #1 ea 12/28/22 02/08/24 Unknown Rx pen needle, diabetic 32 gauge x #100 ea 05/16/23 02/08/24 Unknown Rx 5/16 (Comfort EZ Pen [place]) albuterol sulfate 90 mcg/actuation 2 puff inhalation Q6H PRN 05/17/23 02/08/24 09/06/23 History aerosol inhaler Shortness Of Breath hydroxychloroquine 200 mg tablet 200 mg PO BID #180 tabs 05/23/23 02/08/24 01/18/24 08:00 Rx ondansetron HCl 8 mg tablet 8 mg PO Q8H PRN nausea and 09/05/23 02/08/24 01/10/24 Rx vomiting #30 tabs cholecalciferol (vitamin D3) 1,250 See Rx Instructions .Route 11/06/23 02/08/24 02/07/24 Rx mcg (50,000 unit) capsule .COMPLEX #12 caps tiotropium 2.5 mcg-olodaterol 2.5 2 puff inhalation DAILY #4 grams 11/10/23 02/08/24 01/17/24 08:00 Rx mcg/actuation mist for inhalation (Stiolto Respimat) PORTABLE OXYGEN CONCENTRATOR AND #1 ea 11/16/23 02/08/24 Unknown Rx SUPPLIES duloxetine 20 mg capsule,delayed 20 mg PO BID 90 days #180 caps 11/24/23 02/08/24 02/07/24 Rx release ezetimibe 10 mg tablet 10 mg PO DAILY 12/21/23 02/08/24 01/10/24 History pantoprazole 40 mg tablet,delayed See Rx Instructions .Route 01/02/24 02/08/24 01/17/24 21:00 Rx release .COMPLEX #90 tabs amiodarone 200 mg tablet (Pacerone) See Rx Instructions .Route 01/22/24 02/08/24 02/07/24 Rx .COMPLEX #60 tabs amlodipine 10 mg tablet See Rx Instructions .Route 01/22/24 02/08/24 02/07/24 Rx .COMPLEX #90 tabs cetirizine 5 mg tablet 5 mg PO DAILY PRN Allergy Symptoms 01/22/24 02/08/24 02/07/24 Rx 7 days #7 tabs magnesium L-lactate 84 mg 84 mg PO Q12H 30 days #60 tabs 01/22/24 02/08/24 02/07/24 Rx tablet,extended release (Magtab) potassium chloride 20 mEq 20 meq PO DAILY 90 days #90 tabs 01/26/24 02/08/24 02/07/24 Rx tablet,extended release rosuvastatin 40 mg tablet 40 mg PO DAILY 90 days #90 tabs 01/26/24 02/08/24 Unknown Rx apixaban 5 mg tablet (Eliquis) 5 mg PO BID #60 tabs 01/29/24 02/08/24 02/07/24 Rx metoprolol tartrate 50 mg tablet 50 mg PO BID #60 tabs 0802/08/24 02/07/24 Rx prednisone 20 mg tablet 40 mg (2 x 20 mg) PO DAILY #60 tabs 01/29/24 02/08/24 02/07/24 Rx furosemide 20 mg tablet 20 mg PO DAILY 02/08/24 02/08/24 02/07/24 History hydralazine 50 mg tablet 50 mg PO BID 02/08/24 02/08/24 Unknown History losartan 100 1 tab PO DAILY 02/08/24 02/08/24 Unknown History mg-hydrochlorothiazide 25 mg tablet paroxetine HCl 20 mg tablet 20 mg PO DAILY 02/08/24 02/08/24 Unknown History spironolactone 25 mg tablet 25 mg PO BID 02/08/24 02/08/24 Unknown History Allergies Allergy/AdvReac Type Severity Reaction Status Date / Time Sulfa (Sulfonamide Allergy Unknown Verified 01/30/24 15:57 Antibiotics) sulfamethoxazole Allergy itching Verified 01/30/24 15:57 [From Bactrim] trimethoprim [From Bactrim] Allergy itching Verified 01/30/24 15:57 Current Medications Generic Name Dose Route Start Last Admin Trade Name Freq PRN Reason Stop Dose Admin Acetaminophen 650 mg 02/08/24 00:56 02/09/24 00:26 Acetaminophen 325 Mg Tablet PO 650 mg Q6H PRN Administration Mild/Mod Pain Or Temp >/= 101 Amiodarone HCl 400 mg 02/08/24 14:45 02/09/24 08:41 Amiodarone 200 Mg Tablet PO 400 mg BID NOEL Administration Apixaban 5 mg 02/08/24 09:00 02/09/24 08:40 Apixaban 5 Mg Tablet PO 5 mg BID NOEL Administration Aspirin 81 mg 02/08/24 06:00 02/09/24 06:40 Aspirin 81 Mg Ec Tablet PO 81 mg QAM NOEL Administration Atorvastatin Calcium 80 mg 02/08/24 09:00 02/09/24 08:41 Atorvastatin 40 Mg Tablet PO 80 mg DAILY NOEL Administration Duloxetine HCl 20 mg 02/08/24 09:00 02/09/24 08:40 Duloxetine 20 Mg Capsule PO 20 mg BID NOEL Administration Ezetimibe 10 mg 02/08/24 09:00 02/09/24 08:40 Ezetimibe 10 Mg Tablet PO 10 mg DAILY NOEL Administration Furosemide 40 mg 02/08/24 09:00 02/09/24 08:41 Furosemide 40 Mg Tablet PO 40 mg DAILY NOEL Administration Hydroxychloroquine Sulfate 200 mg 02/08/24 09:00 02/09/24 08:41 Hydroxychloroquine 200 Mg Tablet PO 200 mg BID NOEL Administration Diltiazem HCl 100 mg/ Sodium 100 mls @ 0 mls/hr 02/07/24 23:15 02/08/24 15:34 Chloride IV Infused .Q0M NOEL Titration Protocol Per Protocol Magnesium Lactate 84 mg 02/08/24 00:56 02/09/24 14:38 Magnesium Lactate 84 Mg Tablet PO Not Given Q12H NOEL Metoprolol Tartrate 100 mg 02/08/24 09:00 02/09/24 08:43 Metoprolol Tartrate 50 Mg Tablet PO 100 mg BID@0900,2100 NOEL Administration Oxycodone/Acetaminophen 1 tab 02/09/24 01:33 02/09/24 08:41 Oxycodone-Apap 5-325 Mg Tablet PO 1 tab Q6H PRN Administration MODERATE PAIN Pantoprazole Sodium 40 mg 02/08/24 09:00 02/09/24 08:[address] 40 Mg Tablet PO 40 mg DAILY NOEL Administration Potassium Chloride 20 meq 02/08/24 09:00 02/09/24 08:40 Potassium Chloride Er 10 Meq Tablet PO 20 meq DAILY NOEL Administration Prednisone 40 mg 02/09/24 09:00 02/09/24 08:40 Prednisone 20 Mg Tablet PO 40 mg DAILY NOEL Administration PFSH Anesthesia Medical History Small cell lung cancer Port-A-Cath in place Mixed connective tissue disease Advanced directives, counseling/discussion Former heavy cigarette smoker (20-39 per day) Quit in 2009 Aortic insufficiency dx 10/14/02 Dr Kam Martinez Arthralgia of both knees Venous insufficiency of both lower extremities Opioid contract exists Personal history of nicotine dependence Quit 2009 History of prior cigarette smoking Obesity Hypothyroidism (acquired) Chronic joint pain Anxiety and depression Hyperlipidemia Common migraine with intractable migraine Left Achilles tendinitis Back pain, lumbosacral Type 2 diabetes mellitus Essential hypertension COPD (chronic obstructive pulmonary disease) Gastroesophageal reflux disease without esophagitis Surgical History Stented coronary artery 2 stents done 02/16/96 in [place] History of knee replacement 2010 History of delivery Family History Other CAD (coronary artery disease) Cancer Diabetes Denies family history of Rheumatoid arthritis Lupus Hyperlipidemia Chronic kidney disease (CKD) Hypertension Stroke Social History Smoking and tobacco/nicotine status: former use of tobacco/nicotine Quit status (tobacco/nicotine): has quit using Year quit tobacco: 2009 Former quit date comment: 3 ppd X 37 years Alcohol intake: never Substance/Drug Use: never Lives independently: No Household members: spouse Marital status: Current occupational status: unemployed Do you think of yourself as: Straight/Heterosexual Current gender identity: Female Data Anesthesia 02/09/24 03:35 02/09/24 05:30 Short CBC 02/07/24 02/08/24 02/09/24 Range/Units 22:13 04:13 03:35 WBC 12.20 H 9.44 6.99 (3.29-11.43) 10^3/uL Hgb 13.80 12.90 13.20 (11.27-16.99) g/dL Hct 45.2 44.9 45.0 (36-47) % MCV 90.6 93.9 93.8 (85-98) fl Plt Count 280 237 202 (157-399) 10^3/cmm Neut % (Auto) 75.0 72.7 74.1 % Neut # (Auto) 9.15 H 6.85 5.18 (1.8-7.7) 10^3/uL BMP 02/07/24 02/08/24 02/09/24 22:13 04:13 03:35 Sodium 143 139 Cancelled Potassium 4.6 4.7 Cancelled Chloride 101 102 Cancelled Carbon Dioxide 27 19 L Cancelled BUN 30 H 31 H Cancelled Creatinine 1.1 H 1.1 H Cancelled Glucose 150 H 133 H Cancelled Calcium 9.5 8.8 Cancelled 02/09/24 05:30 Sodium 141 Potassium 4.1 Chloride 104 Carbon Dioxide 23 BUN 26 H Creatinine 1.0 H Glucose 132 H Calcium 8.9 Cardiac Enzymes 02/07/24 02/08/24 02/08/24 Range/Units 22:13 00:00 04:13 Troponin T Baseline 25 H (0-10) ng/L Troponin T 120 Minute 27.93 H (0-10) ng/L Delta Troponin T 2.93 (0-10) ABS# Troponin T Hi Sens 6Hr 28.93 H (0-10) ng/L Troponin T Hi Sens 6Hr Delta 3.93 (0-12) ng/L NT-Pro-B Natriuret Pep 3403 H (0-125) pg/mL Liver Function 02/07/24 Range/Units 22:13 Total Bilirubin 0.2 (0.15-1.2) mg/dL AST 12 (0-32) U/L ALT 21 (0-33) U/L Alkaline Phosphatase 74 (35-105) U/L Albumin 4.1 (3.5-5.2) g/dL Urine 02/07/24 Range/Units 23:12 Urine Color Yellow (Yellow) Urine Appearance Clear (CLEAR) Urine pH 5.0 (5-7) Ur Specific [place] 1.024 (1.005-1.030) Urine Protein Negative (Negative) Urine Glucose (UA) Negative (Normal) Urine Ketones Negative (Negative) Urine Nitrate Negative (Negative) Urine Bilirubin Negative (Negative) Ur Leukocyte Esterase Negative (Negative) Urine RBC 0-2 (0-2) /hpf Urine WBC 0-5 (0-5) /hpf COVID Results 02/07/24 22:35 Coronavirus 229E (PCR) Not detected SARS-CoV-2 (PCR) Not detected Coags 02/07/24 02/08/24 22:13 04:13 ESR 10 C-Reactive Protein 10.2 H 9.1 H Microbiology 02/07/24 22:43 Blood Culture - Preliminary Blood NEGATIVE TO DATE 02/07/24 22:13 Blood Culture - Preliminary Blood NEGATIVE TO DATE Cardiac Studies: 2 Echocardiogram 09/01/22 Echocardiogram Ultrasound 11/18/20 Sestamibi Stress Test (Cardiology) 01/12 Cardiac Event Monitor 06/16/23
--- NOTE | 2024-02-09 16:21 | ANE.PACU2 ---
Inpatient post-anesthesia follow up: Airway intact: Yes Vital signs: Temperature 97.8 F Pulse Rate 100 Respiratory Rate 16 Blood Pressure 101/62 Pulse Oximetry 97 Oxygen Delivery Me thod Nasal Cannula Oxygen Flow Rate 1 Fraction of Inspir ed Oxygen Hydration adequate: Yes Nausea and vomiting: No Pain level: Other (n/a) Mental status: Baseline (appropriate for stage of emergence from sedation )
[2024-02-09 17:02] LABS: Glucose Point of Care 190 mg/dL (70-110)
[2024-02-09] MEDS: metoprolol tartrate 50 mg Tablet 75 MG PO (20:08)
--- NOTE | 2024-02-09 22:43 | PM.PN ---
Subjective Subjective: Denies chest pain or pressure. Heart rate at rest slightly better but easily rises up to 120s 130s with exertion. Vitals/I&O/Wt Last Vital Signs Temp 97.8 F 02/09/24 11:57 Pulse 80 02/09/24 20:40 Resp 24 H 02/09/24 20:08 BP 129/65 02/09/24 20:40 Pulse Ox 98 02/09/24 20:40 O2 Del Method Nasal Cannula 02/09/24 11:57 O2 Flow Rate 1 02/09/24 08:15 02/09/24 02/09/24 02/09/24 06:59 14:59 22:59 Intake Total 600 / 1388.417 240 / 240 600 / 840 Balance 600 / 1388.417 240 / 240 600 / 840 Weight last 48 hrs Weight 138.034 kg Weight 138.034 kg Weight 137.438 kg Weight 137.694 kg Physical Exam Const: COMMON NORMALS: patient oriented x3 and alert GENERAL APPEARANCE: cooperative NUTRITIONAL APPEARANCE: obese ORIENTATION/CONSCIOUSNESS: Yes awake HENMT: COMMON NORMALS: oropharynx normal Neck/C-Spine: COMMON NORMALS: no JVD Resp: COMMON NORMALS: normal respiratory effort and clear to auscultation bilaterally AUSCULTATION: clear to auscultation bilaterally Cardio: COMMON NORMALS: no JVD, S1 normal heart sound present, S2 normal heart sound present and No murmurs present (Cardio) RHYTHM: abnormal rhythm irregularly irregular HEART SOUNDS: S1 normal heart sound present and S2 normal heart sound present GI: COMMON NORMALS: Normal to inspection, nondistended, normoactive bowel sounds present, Soft to palpation and non-tender PALPATION: Yes Soft to palpation Extremity: COMMON NORMALS: no joint enlargement and no pedal edema Neuro: COMMON NORMALS: patient oriented x3 and moves all extremities SENSORIUM/ORIENTATION: Yes alert Skin: COMMON NORMALS: no rashes or lesions noted GENERAL SKIN EXAM: no rashes or lesions noted Data 02/09/24 03:35 02/09/24 05:30 Micro: Microbiology 02/07/24 22:43 Blood Culture - Preliminary Blood NEGATIVE TO DATE 02/07/24 22:13 Blood Culture - Preliminary Blood NEGATIVE TO DATE A&P Assessment and plan (1) Atrial fibrillation with rapid ventricular response: Heart rate Translet slightly better but with minimal exertion rising up and when she is walking getting up to 120s-130s. Does get dyspneic with exertion prescription with nursing staff. Discussed with logistics/shipper, appreciate consultation. Discussed with outpatient case manager, discharge deferred for now. Risk of clot dislodgment, stroke with cardioversion, but she has been on Eliquis. She underwent cardioversion and converted to sinus rhythm. Amiodarone dose is changed to 400 mg daily, metoprolol down to 75 mg daily. Continues on Eliquis. Continue telemetry monitoring. Reviewed vitals, CBC, BMP, magnesium. Will give 1 g magnesium IV. Recheck levels. (2) Small cell lung cancer: Reviewed outpatient pulmonology note - Consider holding durvalumab. High risk for pneumonitis. Tapered on steroids. Resume prednisone. Status post chemotherapy and radiation. Recent radiation pneumonitis treated with steroids noted Admission chest x-ray similar to before with patchy opacities in the left lung apex CRP reviewed with mild elevation, better than previously. Continue outpatient follow-up Qualifiers: Laterality: left Lung location: hilum of lung Qualified Code(s): C34.02 - Malignant neoplasm of left main bronchus (3) COPD (chronic obstructive pulmonary disease): Not in exacerbation Remains at risk for exacerbation Breathing treatments as needed Qualifiers: COPD type: unspecified COPD Qualified Code(s): J44.9 - Chronic obstructive pulmonary disease, unspecified (4) Essential hypertension: Hold Norvasc Continue Lopressor Continue Lasix (5) Type 2 diabetes mellitus: Reviewed blood glucose and POC glucose. Continue sliding-scale insulin correction Reviewed POC glucose. Continue insulin. CC diet. Qualifiers: Diabetes mellitus group home insulin use: without group home use Diabetes mellitus complication status: without complication Qualified Code(s): E11.9 - Type 2 diabetes mellitus without complications Plan Hypomagnesemia: Magnesium 1.7. Gave 1 g. Recheck level. Follow-up potassium level. DVT prophylaxis: Apixaban CODE STATUS: Full code Attestations Medical Necessity Statement*: Admission of over 2 midnights is needed for management of recurrent A-fib with RVR, status post cardioversion, adjustment of medications, poor response to Cardizem, risk of hypotension with concomitant metoprolol, adjustment of amiodarone dose. 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
[2024-02-09] MEDS: magnesium sulfate premix 1 GM/100 ML PIGGYBACK IV (23:42)
[2024-02-10] VITALS (57 sets, daily range): BP systolic 139–169; BP diastolic 68–93; PULSE 56–76; RESP 11–26; TEMP 36.4–36.8; O2SAT 93–99; BMI 46.3
[2024-02-10 04:01] LABS: Basophils % 0.4 %; Eosinophils % 0.4 %; Hematocrit 37.1 % (36-47); Lymphocytes # 1.1 10^3/uL (0.8-4.8); Lymphocytes % 10.9 %; Mean Corpuscular HGB Conc 29.1 g/dL (30-55); Mean Corpuscular Hemoglobin 26.4 pg (27-33); Mean Corpuscular Volume 90.7 fl (85-98); Mean Platelet Volume 9.9 fL (7.4-10.4); Monocytes # 0.6 10^3/uL (0.2-0.9); Monocytes % 6.3 %; Neutrophils # 8.03 10^3/uL (1.8-7.7); Neutrophils % 80.8 %; Nucleated Red Blood Cells % 0 %; Platelet Count 180 10^3/cmm (157-399); Red Blood Count 4.09 10^6/uL (3.85-5.65); Red Cell Distribution Width 15.9 % (12.1-15.1); White Blood Count 9.94 10^3/uL (3.29-11.43)
[2024-02-10 04:16] LABS: Magnesium 1.9 mg/dL (1.7-2.3)
[2024-02-10 04:22] LABS: Anion Gap 17.1 (5-19); Blood Urea Nitrogen 28 mg/dL (8-23); Calcium 8.7 mg/dL (8.5-10.5); Carbon Dioxide 26 mmol/L (22-29); Chloride 102 mmol/L (98-107); Creatinine Clr Calc Pharmacy 68.1079; Glomerular Filtration Rate 44.9 mL/min (90-130); Glucose 152 mg/dL (65-115); Osmolality Calculated 300 mOsm/kg (285-295); Potassium 4.1 mmol/L (3.5-5.1); Sodium 141 mmol/L (136-145)
[2024-02-10] MEDS: aspirin 81 mg EC Tablet PO (05:42)
[2024-02-10] MEDS: oxyCODONE-APAP 5-325 mg Tablet 1 TAB PO ×2 (06:29→12:40)
[2024-02-10] MEDS: pantoprazole DR 40 mg Tablet PO (08:14)
[2024-02-10] MEDS: apixaban 5 mg Tablet PO (08:14)
[2024-02-10] MEDS: FUROsemide 40 mg Tablet PO (08:14)
[2024-02-10] MEDS: predniSONE 20 mg Tablet 40 MG PO (08:14)
[2024-02-10] MEDS: potassium chloride ER 10 mEq Tablet 20 MEQ PO (08:14)
[2024-02-10] MEDS: amiodarone 200 mg Tablet 400 MG PO (08:15)
[2024-02-10] MEDS: atorvastatin 40 mg Tablet 80 MG PO (08:15)
[2024-02-10] MEDS: hydroxychloroquine 200 mg Tablet PO (08:15)
[2024-02-10] MEDS: duloxetine 20 mg Capsule PO (08:15)
[2024-02-10] MEDS: ezetimibe 10 mg Tablet PO (08:15)
[2024-02-10] MEDS: metoprolol tartrate 50 mg Tablet 75 MG PO (09:58)
--- NOTE | 2024-02-10 10:46 | P.DS_ITS ---
Discharge Providers Date of Admission: 02/09/24 19:01 Date of Discharge: February 10, 2024 Attending Provider at Admission: Zane Dunaway MD Attending Provider at Discharge: Bonilla Pulido Primary Care Provider: DIONI Bruno Diagnoses at Discharge Discharge Diagnosis (1) Atrial fibrillation with rapid ventricular response: Status: Acute (2) Small cell lung cancer: Status: Acute Qualifiers: Laterality: left Lung location: hilum of lung Qualified Code(s): C34.02 - Malignant neoplasm of left main bronchus (3) COPD (chronic obstructive pulmonary disease): Status: Chronic Qualifiers: COPD type: unspecified COPD Qualified Code(s): J44.9 - Chronic obstructive pulmonary disease, unspecified (4) Essential hypertension: Status: Chronic (5) Type 2 diabetes mellitus: Status: Chronic Qualifiers: Diabetes mellitus complication status: without complication Diabetes mellitus detention insulin use: without assistant terminal manager use Qualified Code(s): E11.9 - Type 2 diabetes mellitus without complications Reason for Visit Reason for Visit: heart racing SOB chest pain left arm Brief History: Janet Pillai is a 68 year old female with a past medical history significant for small cell lung cancer, mixed connective tissue disorder, tobacco use disorder in remission, hypothyroidism, hyperlipidemia, type 2 diabetes mellitus, COPD, GERD, coronary artery disease, nonrheumatic aortic valve insufficiency, and proximal menstrual atrial fibrillation who presents to the emergency department with shortness of breath x 1 day. Patient states she was in her usual state of health until about noon when she developed worsening shortness of breath. Endorses associated palpitations and chest tightness. Denies chest pain, nausea, fevers or chills. Reports exertion worsens symptoms. Rest improves symptoms. In the emergency department, patient was found to have tachycardia. EKG revealed atrial fibrillation with rapid ventricular rate. Patient was started on Cardizem drip with improvement in heart rate. Of note, patient was recently admitted from January 18 to January 21 for atrial fibrillation with rapid ventricular rate and radiation pneumonitis. Per documentation, she was initially managed on Cardizem drip. Hospital course was complicated by persistent atrial fibrillation for which she was treated with amiodarone with conversion to sinus rhythm. She was also treated for radiation pneumonitis with steroid taper. She was discharged on amiodarone taper and continued on home Lopressor. She also takes apixaban for which she endorses compliance with. Hospital Course Hospital Course She was admitted to cardiac stepdown unit, initially continued on Cardizem drip, and resumed on home dose metoprolol, amiodarone initially held after bolus in ER. Weaned off Cardizem drip to home dose metoprolol. Amiodarone dose was increased initially to 400 mg twice daily. She continued on Eliquis. Heart rates improved but only at rest down to 90s, but with exertion increasing up above 100 and significantly higher with walking. Cardiology was consulted, she underwent DC cardioversion, successfully converting to sinus rhythm, heart rates 60s-70s, but occasionally down to 50s, so per discussion with cardiology metoprolol dose is decreased down to 50 mg. And she continues on amiodarone 200 mg daily. Still with hypertension, to assist with control she is resumed on amlodipine 5 mg and restarted on spironolactone 25 mg twice daily. We discussed with her and her caution with potassium rich foods and we discussed stopping potassium supplements. She is asked to follow-up with cardiology in of [facility]. Please continue to monitor and reassess blood pressure control. Physical Exam Narrative: Sitting up in bed. Feeling well. Feels ready to discharge home. Const: COMMON NORMALS: patient oriented x3 and alert GENERAL APPEARANCE: cooperative ORIENTATION/CONSCIOUSNESS: Yes awake HENMT: COMMON NORMALS: oropharynx normal Neck/C-Spine: COMMON NORMALS: no JVD Resp: COMMON NORMALS: normal respiratory effort and clear to auscultation bilaterally AUSCULTATION: clear to auscultation bilaterally Cardio: COMMON NORMALS: no JVD, regular rhythm, S1 normal heart sound present, S2 normal heart sound present and No murmurs present (Cardio) RHYTHM: regular rhythm HEART SOUNDS: S1 normal heart sound present and S2 normal heart sound present GI: COMMON NORMALS: Normal to inspection, nondistended, normoactive bowel sounds present, Soft to palpation and non-tender PALPATION: Yes Soft to palpation Extremity: COMMON NORMALS: no joint enlargement and no pedal edema Neuro: COMMON NORMALS: patient oriented x3 and moves all extremities SENSORIUM/ORIENTATION: Yes alert Skin: COMMON NORMALS: no rashes or lesions noted GENERAL SKIN EXAM: no rashes or lesions noted Discharge Data Studies Completed and Pending Completed Studies During Hospitalization Category Date Time Status XR chest 1V portable [id number] Stat Exams 02/07/24 21:58 Completed Pending at discharge Category Date Time Status Basic Metabolic Panel AM LABS Lab 02/11/24 04:00 Ordered Blood Culture Stat Lab 02/07/24 22:43 Results Complete Blood Count w/Auto AM LABS Lab 02/11/24 04:00 Ordered Magnesium AM LABS Lab 02/11/24 04:00 Ordered Magnesium AM LABS Lab 02/12/24 04:00 Ordered Radiology Impressions Chest X-Ray 02/07/24 21:58 IMPRESSION: Persistent patchy opacities in the left lung apex which may represent pneumonia or postradiation pneumonitis. No new focal consolidations. Laboratory Results WBC 9.94 10^3/uL (3.29-11.43) 02/10/24 03:49 RBC 4.09 10^6/uL (3.85-5.65) 02/10/24 03:49 Hgb 10.80 g/dL (11.27-16.99) L 02/10/24 03:49 Hct 37.1 % (36-47) 02/10/24 03:49 MCV 90.7 fl (85-98) 02/10/24 03:49 MCH 26.4 pg (27-33) L 02/10/24 03:49 MCHC 29.1 g/dL (30-55) L 02/10/24 03:49 RDW 15.9 % (12.1-15.1) H 02/10/24 03:49 Plt Count 180 10^3/cmm (157-399) 02/10/24 03:49 MPV 9.9 fL (7.4-10.4) 02/10/24 03:49 Neut % (Auto) 80.8 % 02/10/24 03:49 Lymph % (Auto) 10.9 % 02/10/24 03:49 [place]dwell % (Auto) 6.3 % 02/10/24 03:49 Eos % (Auto) 0.4 % 02/10/24 03:49 Baso % (Auto) 0.4 % 02/10/24 03:49 Neut # (Auto) 8.03 10^3/uL (1.8-7.7) H 02/10/24 03:49 Lymph # (Auto) 1.1 10^3/uL (0.8-4.8) 02/10/24 03:49 [place]dwell # (Auto) 0.6 10^3/uL (0.2-0.9) 02/10/24 03:49 Eos # (Auto) 0.0 10^3/uL (0.0-0.8) 02/10/24 03:49 Baso # (Auto) 0.0 10^3/uL (0.0-0.1) 02/10/24 03:49 Nucleated RBC % (auto) 0 % 02/10/24 03:49 Nucleated RBCs # 0.0 /100WBC 02/10/24 03:49 ESR 10 mm/hr (0-15) 02/08/24 04:13 Sodium 141 mmol/L (136-145) 02/10/24 03:49 Potassium 4.1 mmol/L (3.5-5.1) 02/10/24 03:49 Chloride 102 mmol/L (98-107) 02/10/24 03:49 Carbon Dioxide 26 mmol/L (22-29) 02/10/24 03:49 Anion Gap 17.1 (5-19) 02/10/24 03:49 BUN 28 mg/dL (8-23) H 02/10/24 03:49 Creatinine 1.2 mg/dL (0.5-0.9) H 02/10/24 03:49 GFR Calculation 44.9 mL/min (90-130) L 02/10/24 03:49 Glucose 152 mg/dL (65-115) H 02/10/24 03:49 POC Glucose 190 mg/dL (70-110) H 02/09/24 16:54 Calculated Osmolality 300 mOsm/kg (285-295) H 02/10/24 03:49 Lactic Acid 1.9 mmol/L (0.5-2.2) 02/07/24 22:13 Calcium 8.7 mg/dL (8.5-10.5) 02/10/24 03:49 Phosphorus 3.7 mg/dL (2.5-4.5) 02/08/24 04:13 Magnesium 1.9 mg/dL (1.7-2.3) 02/10/24 03:49 Total Bilirubin 0.2 mg/dL (0.15-1.2) 02/07/24 22:13 AST 12 U/L (0-32) 02/07/24 22:13 ALT 21 U/L (0-33) 02/07/24 22:13 Alkaline Phosphatase 74 U/L (35-105) 02/07/24 22:13 Troponin T Baseline 25 ng/L (0-10) H 02/07/24 22:13 Troponin T 120 Minute 27.93 ng/L (0-10) H 02/08/24 00:00 Delta Troponin T 2.93 ABS# (0-10) 02/08/24 00:00 Troponin T Hi Sens 6Hr 28.93 ng/L (0-10) H 02/08/24 04:13 Troponin T Hi Sens 6Hr Delta 3.93 ng/L (0-12) 02/08/24 04:13 C-Reactive Protein 9.1 mg/L (0.0-4.9) H 02/08/24 04:13 NT-Pro-B Natriuret Pep 3403 pg/mL (0-125) H 02/07/24 22:13 Total Protein 6.6 g/dL (6.6-8.7) 02/07/24 22:13 Albumin 4.1 g/dL (3.5-5.2) 02/07/24 22:13 Globulin 2.5 g/dL (1.3-4.6) 02/07/24 22:13 Procalcitonin 0.04 ng/mL (0-0.5) 02/08/24 04:13 TSH 2.54 uIU/mL (0.27-4.20) 02/08/24 04:13 Urine Color Yellow (Yellow) 02/07/24 23:12 Urine Appearance Clear (CLEAR) 02/07/24 23:12 Urine pH 5.0 (5-7) 02/07/24 23:12 Ur Specific Wilson 1.024 (1.005-1.030) 02/07/24 23:12 Urine Protein Negative (Negative) 02/07/24 23:12 Urine Glucose (UA) Negative (Normal) 02/07/24 23:12 Urine Ketones Negative (Negative) 02/07/24 23:12 Urine Blood Negative (Negative) 02/07/24 23:12 Urine Nitrate Negative (Negative) 02/07/24 23:12 Urine Bilirubin Negative (Negative) 02/07/24 23:12 Urine Urobilinogen 1.0 mg/dL (Negative) 02/07/24 23:12 Ur Leukocyte Esterase Negative (Negative) 02/07/24 23:12 Urine RBC 0-2 /hpf (0-2) 02/07/24 23:12 Urine WBC 0-5 /hpf (0-5) 02/07/24 23:12 Ur Squamous Epith Cells 0-5 /hpf (0-5) 02/07/24 23:12 Amorphous Sediment Not Reportable 02/07/24 23:12 Urine Bacteria None seen /hpf (NONE) 02/07/24 23:12 Hyaline Casts 0.40 /lpf 02/07/24 23:12 Adenovirus (PCR) Not detected (NOT DETECT) 02/07/24 22:35 C. pneumoniae DNA (PCR) Not detected (NOT DETECT) 02/07/24 22:35 Coronavirus 229E (PCR) Not detected (NOT DETECT) 02/07/24 22:35 Human Metapneumovir PCR Not detected (NOT DETECT) 02/07/24 22:35 Influenza A (H1) PCR Not detected (NOT DETECT) 02/07/24 22:35 Influ A (H1/09) PCR Not detected (NOT DETECT) 02/07/24 22:35 Influenza A (H3) PCR Not detected (NOT DETECT) 02/07/24 22:35 Influenza Type A (PCR) Not detected (NOT DETECT) 02/07/24 22:35 Influenza Type B (PCR) Not detected (NOT DETECT) 02/07/24 22:35 M. pneumoniae (PCR) Not detected (NOT DETECT) 02/07/24 22:35 Parainfluenza 1 (PCR) Not detected (NOT DETECT) 02/07/24 22:35 Parainfluenza 2 (PCR) Not detected (NOT DETECT) 02/07/24 22:35 Parainfluenza 3 (PCR) Not detected (NOT DETECT) 02/07/24 22:35 Parainfluenza 4 (PCR) Not detected (NOT DETECT) 02/07/24 22:35 RSV Type A (PCR) Not detected (NOT DETECT) 02/07/24 22:35 RSV Type B (PCR) Not detected (NOT DETECT) 02/07/24 22:35 Entero/Rhino (PCR) Not detected (NOT DETECT) 02/07/24 22:35 SARS-CoV-2 (PCR) Not detected (NOT DETECT) 02/07/24 22:35 Vitals Last Vital Signs Temp 97.7 F 02/10/24 09:16 Pulse 66 02/10/24 09:16 Resp 12 02/10/24 09:16 BP 155/90 02/10/24 09:16 Pulse Ox 98 02/10/24 09:16 O2 Del Method Room Air 02/10/24 07:38 O2 Flow Rate 1 02/09/24 08:15 Discharge Plan Discharge Patient Disposition: Home Condition: Stable Prescriptions: Continued aspirin 81 mg tablet,delayed release (DR/EC) 81 mg PO QAM Hold Instructions: Resume on 01/13/24. nitroglycerin 0.4 mg tablet, sublingual 0.4 mg sublingual Q5M PRN (Reason: chest pain) Qty: 25 2RF Rx Instructions: do not exceed 3 doses per episode (DME) Diabetic Shoes See Rx Instructions .ROUTE .MEDSUPPLY Qty: 1 0RF Rx Instructions: As directed, with 3 pairs of inserts J P & O hydroxychloroquine 200 mg tablet 200 mg PO BID Qty: 180 1RF Hold Instructions: Resume on 02/12/24. hold for 4 weeks, until prednisone completed (DME) pen needle, diabetic [Comfort EZ Pen [place]] 32 gauge x 5/16 needle See Rx Instructions .Route Qty: 100 0RF Rx Instructions: daily Stiolto Respimat 2.5-2.5 mcg/actuation mist 2 puff inhalation DAILY Qty: 4 3RF (DME) PORTABLE OXYGEN CONCENTRATOR AND SUPPLIES See Rx Instructions .Route .MEDSUPPLY Qty: 1 0RF Rx Instructions: As directed metoprolol tartrate 50 mg tablet 50 mg PO BID Qty: 60 3RF prednisone 20 mg tablet 40 mg PO DAILY Qty: 60 2RF Eliquis 5 mg tablet 5 mg PO BID Qty: 60 3RF Hold Instructions: Resume on 01/13/24. ezetimibe 10 mg tablet 10 mg PO DAILY rosuvastatin 40 mg tablet 40 mg PO DAILY 90 Days Qty: 90 4RF albuterol sulfate 90 mcg/actuation HFA aerosol inhaler 2 puff inhalation Q6H PRN (Reason: Shortness Of Breath) ondansetron HCl 8 mg tablet 8 mg PO Q8H PRN (Reason: nausea and vomiting) Qty: 30 0RF (DME) blood sugar diagnostic Strip See Rx Instructions .Route Qty: 100 0RF Rx Instructions: use to check blood sugars once daily (DME) lancets [Accu-Chek Softclix Lancets] Misc See Rx Instructions .Route Qty: 200 0RF Rx Instructions: use to check blood sugar once daily (DME) Diabetic Shoes and 3 inserts See Rx Instructions .Route .MEDSUPPLY Qty: 1 0RF Rx Instructions: As directed by HOME cholecalciferol (vitamin D3) 1,250 mcg (50,000 unit) capsule See Rx Instructions .ROUTE .COMPLEX Qty: 12 1RF Dose Instruction: TAKE ONE CAPSULE BY MOUTH EVERY monday AT 9am Rx Instructions: TAKE ONE CAPSULE BY MOUTH EVERY MONDAY, duloxetine 20 mg capsule,delayed release(DR/EC) 20 mg PO BID 90 Days Qty: 180 0RF pantoprazole 40 mg tablet,delayed release (DR/EC) See Rx Instructions .ROUTE .COMPLEX Qty: 90 0RF Dose Instruction: TAKE ONE TABLET BY MOUTH DAILY FOR 90 DAYS Rx Instructions: TAKE ONE TABLET BY MOUTH DAILY FOR 90 DAYS magnesium L-lactate [Magtab] 84 mg Tablet Extended Release 84 mg PO Q12H 30 Days Qty: 60 0RF cetirizine 5 mg Tablet 5 mg PO DAILY PRN (Reason: Allergy Symptoms) 7 Days Qty: 7 0RF hydralazine 50 mg tablet 50 mg PO BID furosemide 20 mg tablet 20 mg PO DAILY paroxetine HCl 20 mg tablet 20 mg PO DAILY spironolactone 25 mg tablet 25 mg PO BID Qty: 180 0RF Changed Pacerone 200 mg Tablet 200 mg PO DAILY Qty: 30 0RF Rx Instructions: 200 mg orally; amlodipine 10 mg tablet 5 mg PO DAILY Qty: 1 0RF Rx Instructions: Continue at 5mg Discontinued potassium chloride 20 mEq tablet extended release 20 meq PO DAILY 90 Days Qty: 90 0RF losartan-hydrochlorothiazide 100-25 mg tablet 1 tab PO DAILY Discharge Orders: Discharge Order (Routine); Ordered 02/10/24 Ordered By: Bonilla Pulido Referrals: Teresa Clifford FNP [Primary Care Provider] - 4-7 days Lucero Parson FNP [Nurse Practitioner] - 1 week (Please call the heart care services by Monday afternoon on the phone# provided to ask for your follow-up appointment with Ms Lucero Parson in a week.) Discharge Diet: Cardiac and Diabetic Discharge Activity: Increase activity as tolerated Patient Instructions: Metoprolol (By mouth), Amiodarone (By mouth) (Cordarone, Pacerone), A-fib (Atrial Fibrillation) (GEN), Opioid Safety, Pain Management Activity Restrictions/Additional Instructions: Follow-up with your primary doctor and cardiology for reassessment of atrial fibrillation after cardioversion as well as control of hypertension. Continue to monitor blood pressure and heart rates 3 times daily. Safe values to bring to your appointment. Follow-up with your primary doctor for monitoring of amiodarone therapy as discussed with risks to eyes, thyroid, lungs, liver with needed monitoring. Discussed with cardiology consideration if atrial fibrillation remains controlled of switching to a different medication long-term. Seek medical attention in case of any worsening or new concerning symptoms. Discharge Attestations Time Spent in Discharge Care*: greater than 30 min Quality Metrics Clinical Quality Measures [ No reported AMI, CVA or VTE this stay] Coding Level of Care Code Acute Code for Chg Fwd Diagnoses Atrial fibrillation with rapid ventricular response I48.91 Small cell carcinoma of hilum of left lung C34.02 Laterality: left Lung location: hilum of lung Chronic obstructive pulmonary disease, unspecified COPD type J44.9 COPD type: unspecified COPD Essential hypertension I10 Type 2 diabetes mellitus without complication, without long-term current use of insulin E11.9 Diabetes mellitus complication status: without complication Diabetes mellitus assistant terminal manager insulin use: without detention use
--- NOTE | 2024-02-10 11:58 | P.PN_ITS ---
Subjective 2 Subjective: Patient is feeling better she continues to be in sinus rhythm Vitals/I&O/Wt Last Vital Signs Temp 97.7 F 02/10/24 09:16 Pulse 66 02/10/24 09:16 Resp 12 02/10/24 09:16 BP 155/90 02/10/24 09:16 Pulse Ox 98 02/10/24 09:16 O2 Del Method Room Air 02/10/24 07:38 O2 Flow Rate 1 02/09/24 08:15 02/09/24 02/10/24 02/10/24 22:59 06:59 14:59 Intake Total 1200 / 1440 100 / 1540 300 / 300 Balance 1200 / 1440 100 / 1540 300 / 300 Weight last 48 hrs Weight 304 lb 5 oz Weight 304 lb 5 oz Weight 304 lb 5 oz Physical Exam 2 Const: OTHER: GENERAL: Patient is alert, awake and oriented x3. HEART: Regular S1 and S2. No murmur, rub or gallop. LUNGS: Clear to auscultate bilaterally. ABDOMEN: Soft, nontender and nondistended. Positive bowel sounds. No guarding, rebound or tenderness. CENTRAL NERVOUS SYSTEM: Grossly nonfocal. EXTREMITIES: Lower extremities without edema bilaterally. . Data 02/10/24 03:49 02/10/24 03:49 A&P Assessment and plan (1) Atrial fibrillation with rapid ventricular response: Difficult to control atrial fibrillation due to underlying history of malignancy despite of optimization of medicine and using antiarrhythmics such as amiodarone, it is therefore recommended that we should proceed with cardioversion. Patient is taking Eliquis for the past 5 months regularly and has not missed a dose therefore at this point there is no need of transesophageal echocardiogram. Patient has been explained all risk-benefit and alternative for the procedure she would like to proceed with it. Patient understand risk for stroke bradycardia temporary or permanent pacemaker and intubation. On today's visit dated 02/10/2024 patient stays in sinus rhythm, she was cardioverted yesterday by external defibrillation under anesthesia. We will adjust her medication accordingly. Reduce beta-saba to 50 mg twice daily Add amlodipine Reduce amiodarone to 200 mg once a day Continue apixaban 5 mg twice daily Continue spironolactone Continue statin Increase losartan to 100 mg Follow-up with Ms. Lucero Parson cardiology nurse practitioner in 1 week Follow-up with Dr. Rodriguez (2) Aortic insufficiency: Will continue to monitor Qualifiers: Cardiac valve disease etiology: etiology unspecified Qualified Code(s): I35.1 - Nonrheumatic aortic (valve) insufficiency (3) Coronary arteriosclerosis: Stable continue current regimen (4) Essential hypertension: By reducing metoprolol because of bradycardia blood pressure may will tends to go up we will increase losartan and add amlodipine Attestations 2 Medical Necessity Statement*: Patient can be discharged from a cardiovascular perspective Coding Level of Care Code Acute Code for Chg Fwd Diagnoses Atrial fibrillation with rapid ventricular response I48.91 Aortic valve insufficiency, etiology of cardiac valve disease unspecified I35.1 Cardiac valve disease etiology: etiology unspecified Coronary arteriosclerosis I25.10 Essential hypertension I10
--- NOTE | 2024-02-10 12:53 | PC.NURSE ---
Discharged patient. Educated on mediaction changes, activity, and upcoming appointments. Removed IV to right FA and access to right chest port. Followup with primary physician appointment not made, patient already has a preexisting appointment with her this monday02/12/2024. Unable to make appointment with Heart care services as it is monday, nurse sent a message via [facility] to the heart/lung center requesting a followup appointment within 1 week, nurse also encouraged inés patient to call if they don't hear form the heart/lung center. Phone number provided.
--- NOTE | 2024-02-11 23:28 | PM.PROC ---
Procedure Note: Date of procedure: 02/09/24 Pre-procedure diagnosis: Atrial fibrillation Post-procedure diagnosis: other (Converted to sinus rhythm) Procedure: After explaining in detail all risk-benefit and alternative for the procedure informed consent was obtained from the patient for cardioversion. Patient is on Eliquis without interruption for more than 5 weeks. Propofol was administered by anesthesia, please see anesthesia note. After confirming deep sedation, defibrillation pad were applied to the front and back of the chest. Patient was delivered 120 J of biphasic shock x 1, she converted to sinus rhythm. Patient tolerated procedure well without any complication Complications: None Coding Level of Care Code Acute Code for [facility]
== END 2024-02-10 12:57 | disposition home or self-care (01) | DRG 309 ==
LOC: ER 23:41 → CSU 23:42
PROVIDERS: Admitting Provider Internal Medicine; Emergency Provider Emergency Medicine; PCP Registered Nurse; Visit Provider Internal Medicine
DX: I48.19 Other persistent atrial fibrillation (principal); C34.02 Malignant neoplasm of left main bronchus; M35.1 Other overlap syndromes; Z68.42 Body mass index [BMI] 45.0-49.9, adult; E03.9 Hypothyroidism, unspecified; E78.5 Hyperlipidemia, unspecified; E11.9 Type 2 diabetes mellitus without complications; J44.9 Chronic obstructive pulmonary disease, unspecified; K21.9 Gastro-esophageal reflux disease without esophagitis; I25.10 Atherosclerotic heart disease of native coronary artery without angina pectoris; I35.1 Nonrheumatic aortic (valve) insufficiency; E66.9 Obesity, unspecified; F41.9 Anxiety disorder, unspecified; F32.A Depression, unspecified; I10 Essential (primary) hypertension; Z96.659 Presence of unspecified artificial knee joint; Z79.01 Long term (current) use of anticoagulants; Z79.82 Long term (current) use of aspirin; Z87.891 Personal history of nicotine dependence; Z95.5 Presence of coronary angioplasty implant and graft; Z87.01 Personal history of pneumonia (recurrent); Z92.21 Personal history of antineoplastic chemotherapy; Z92.3 Personal history of irradiation; Z95.828 Presence of other vascular implants and grafts
CPT/HCPCS: 36415; 36416; 36591; 71045; 80048; 80053; 81001; 82962; 83605; 83735; 83880; 84100; 84145; 84443; 84484; 85025; 85651; 86140; 87040; 87486; 87581; 87633; 93005; 96365; 96367; 96375; 99285; G0378; J0282; J0283; J2704; J3475; J3490; J3535; J7512

== ENCOUNTER 2024-02-14 11:43 | Outpatient (RCR) | payer MEDICARE, SELFPAY | END 2024-02-24 18:00 | disposition home or self-care (01) | LOC: SPT 11:43 | PROVIDERS: PCP Registered Nurse; Visit Provider Registered Nurse | DX: M77.8 Other enthesopathies, not elsewhere classified (principal) | CPT/HCPCS: 97110; 97161 ==

== ENCOUNTER → 2024-02-15 09:11 | Outpatient (BNVA) | payer MEDICARE, SELFPAY | PROVIDERS: PCP Registered Nurse; Visit Provider Nurse Practitioner Family | DX: I48.91 Unspecified atrial fibrillation (principal); R00.1 Bradycardia, unspecified; I45.10 Unspecified right bundle-branch block; I10 Essential (primary) hypertension; Z87.891 Personal history of nicotine dependence | CPT/HCPCS: 93005; 99213 ==

== ENCOUNTER 2024-02-25 06:00 | Outpatient (RCR) | payer MEDICARE, SELFPAY | END 2024-03-15 23:59 | disposition home or self-care (01) | LOC: SPT 06:00 | PROVIDERS: PCP Registered Nurse; Visit Provider Registered Nurse | DX: M77.8 Other enthesopathies, not elsewhere classified (principal) | CPT/HCPCS: 97110; 97164 ==

== ENCOUNTER → 2024-02-27 09:55 | Outpatient (BNVA) | payer MEDICARE, SELFPAY | PROVIDERS: PCP Registered Nurse; Visit Provider Physician Assistant | DX: M75.101 Unspecified rotator cuff tear or rupture of right shoulder, not specified as traumatic; M75.41 Impingement syndrome of right shoulder | CPT/HCPCS: 20610; 73030; 99203; J3301 ==

== ENCOUNTER 2024-03-01 07:41 | Oncology outpatient (recurring) (ONCR) | payer MEDICARE, SELFPAY ==
[2024-03-01 08:20] LABS: Basophils # 0.1 10^3/uL (0.0-0.1); Basophils % 0.3 %; Eosinophils % 0.1 %; Hematocrit 45.8 % (36-47); Lymphocytes # 1.2 10^3/uL (0.8-4.8); Mean Corpuscular HGB Conc 31.2 g/dL (30-55); Mean Corpuscular Hemoglobin 26.5 pg (27-33); Mean Corpuscular Volume 84.8 fl (85-98); Mean Platelet Volume 10.3 fL (7.4-10.4); Monocytes # 0.8 10^3/uL (0.2-0.9); Monocytes % 4.9 %; Neutrophils # 14.77 10^3/uL (1.8-7.7); Neutrophils % 85.3 %; Nucleated Red Blood Cells % 0 %; Platelet Count 237 10^3/cmm (157-399); Red Cell Distribution Width 15.8 % (12.1-15.1); White Blood Count 17.31 10^3/uL (3.29-11.43)
[2024-03-01 08:41] LABS: Alanine Aminotransferase 17 U/L (0-33); Albumin Level 4.3 g/dL (3.5-5.2); Alkaline Phosphatase 71 U/L (35-105); Aspartate Amino Transferase 9 U/L (0-32); Blood Urea Nitrogen 28 mg/dL (8-23); Calcium 9.8 mg/dL (8.5-10.5); Carbon Dioxide 26 mmol/L (22-29); Chloride 95 mmol/L (98-107); Globulin 2.8 g/dL (1.3-4.6); Glomerular Filtration Rate 49.7 mL/min (90-130); Glucose 198 mg/dL (65-115); Osmolality Calculated 289 mOsm/kg (285-295); Sodium 134 mmol/L (136-145); Total Bilirubin 0.3 mg/dL (0.15-1.2); Total Protein 7.1 g/dL (6.6-8.7)
== END 2024-03-25 23:59 | disposition home or self-care (01) ==
PROVIDERS: PCP Registered Nurse; Visit Provider Internal Medicine Medical Oncology
DX: C34.02 Malignant neoplasm of left main bronchus (principal); C79.51 Secondary malignant neoplasm of bone; J70.0 Acute pulmonary manifestations due to radiation; I10 Essential (primary) hypertension; Z92.3 Personal history of irradiation; Z87.891 Personal history of nicotine dependence; Z79.899 Other long term (current) drug therapy; Z79.52 Long term (current) use of systemic steroids; Z79.01 Long term (current) use of anticoagulants; Z95.828 Presence of other vascular implants and grafts
CPT/HCPCS: 36591; 80053; 85025; 99214

== ENCOUNTER → 2024-03-14 11:18 | Outpatient (BNVA) | payer MEDICARE, SELFPAY | PROVIDERS: PCP Registered Nurse; Visit Provider Registered Nurse | DX: E87.6 Hypokalemia (principal); E11.9 Type 2 diabetes mellitus without complications | CPT/HCPCS: 80048; 81000 ==

== ENCOUNTER 2024-04-04 12:00 | Oncology outpatient (recurring) (ONCR) | payer MEDICARE, SELFPAY ==
--- NOTE | 2024-04-03 12:00 | CTR_ITS ---
PROCEDURE INFORMATION: Exam: CT Chest Without Contrast; Diagnostic Exam date and time: 04/03/2024 12:27 PM Age: 69 years old Clinical indication: Condition or disease; Lung condition and disease; Cancer of the lung; Bilateral; Unspecified; Primary cancer: Lung cancer; Prior surgery; Surgery date: 6+ months; Surgery type: Port, heart stents, tubal; Additional info: Surveillance TECHNIQUE: Imaging protocol: Diagnostic computed tomography of the chest without contrast. Radiation optimization: All CT scans at this facility use at least one of these dose optimization techniques: automated exposure control; mA and/or kV adjustment per patient size (includes targeted exams where dose is matched to clinical indication); or iterative reconstruction. COMPARISON: 1. CT angio chest PE protcl [id number] 01/18/2024 6:22 PM 2. PET-CT dated 01/16/2024. RADIATION DOSE METRICS: Total DLP (mGy-cm): 1428.98 FINDINGS: Tubes, catheters and devices: Right chest wall chemo port with tip at the right ventricle, unchanged. Thyroid: The thyroid gland is heterogeneous, with suggestion of a 1.7 cm nodule in the left thyroid lobe. Trachea: The central airways are patent. Lungs: Posttreatment changes in the left lung apex, with continued decrease in size of an ill-defined left apical consolidation. Associated fibrotic changes, including traction bronchiectasis and bronchiolectasis and architectural distortion. No discrete residual primary lesion. There is mild diffuse parenchymal mosaicism, which may represent a degree of air trapping or small airways disease. There is no new suspicious nodular consolidation. Pleural spaces: No significant pleural effusion. No pneumothorax. Heart: The heart is normal in size. No pericardial effusion. Coronary arteries: There are moderate coronary artery calcifications. Lymph nodes: Interval decrease in size of mediastinal lymphadenopathy. No enlarged lymph nodes by CT size criteria. Vasculature: The aorta demonstrates moderate atherosclerotic calcification. The aorta is normal in caliber. No aneurysm. Bones/joints: The spine demonstrates mild degenerative changes at multiple levels. Stable peripherally sclerotic lesion centered at the inferior endplate of T9, previously non metabolically active. Soft tissues: Soft tissues are unremarkable as visualized. COMMENTS: Consistent with the [employer]'s Incidental Findings Committee white paper (J Am Luis Radiol 2015): In patients aged 35 years and older with an incidental thyroid nodule equal to or greater than 1.[address], MRI or extrathyroidal US, further evaluation with dedicated thyroid US is recommended for patients with normal life expectancy and without comorbidities. For smaller nodules without suspicious features, no further evaluation or follow up is recommended. PROCEDURE INFORMATION: Exam: CT Abdomen And Pelvis Without Contrast Exam date and time: 04/03/2024 12:27 PM Age: 69 years old Clinical indication: Condition or disease; Lung condition and disease; Cancer of the lung; Bilateral; Unspecified; Primary cancer: Lung cancer; Prior surgery; Surgery date: 6+ months; Surgery type: Port, heart stents, tubal; Additional info: Surveillance TECHNIQUE: Imaging protocol: Computed tomography of the abdomen and pelvis without contrast. Radiation optimization: All CT scans at this facility use at least one of these dose optimization techniques: automated exposure control; mA and/or kV adjustment per patient size (includes targeted exams where dose is matched to clinical indication); or iterative reconstruction. COMPARISON: PT PET skull to thigh SUBS [id number] 01/16/2024 9:00 AM RADIATION DOSE METRICS: Total DLP (mGy-cm): 1428.98 FINDINGS: Liver: The liver demonstrates punctate calcifications, consistent with remote granulomatous organism exposure. Gallbladder and biliary ducts: The gallbladder is unremarkable. No biliary dilation. Pancreas: The pancreas is unremarkable. Spleen: The spleen demonstrates punctate calcifications, consistent with remote granulomatous organism exposure. Adrenal glands: The adrenal glands are unremarkable. Kidneys and ureters: There are multiple bilateral renal collecting system stones. No hydronephrosis. Right-sided extrarenal pelvis. Stomach and bowel: Colonic diverticulosis without evidence of diverticulitis. Appendix: A normal appendix is identified. Intraperitoneal space: No significant peritoneal free fluid. No free peritoneal air. Vasculature: The vasculature demonstrates diffuse moderate atherosclerotic calcification. No aneurysm. Lymph nodes: No enlarged lymph nodes by size criteria. Urinary bladder: The bladder is unremarkable. Reproductive: Leiomyomatous uterus. The adnexa are unremarkable. Bones/joints: The spine demonstrates moderate degenerative changes at multiple levels. Soft tissues: Calcified injection granulomas are noted in the subcutaneous tissues of the buttocks. CT/[place] [id number] IMPRESSION: 1. Posttreatment changes in the left lung apex, with continued decrease in size of left apical pneumonitis/posttreatment related changes. No discrete residual primary lesion. 2. Right chest wall chemo-port with tip at the right ventricle, unchanged in position. 3. The thyroid gland is heterogeneous, with suggestion of a 1.7 cm nodule in the left thyroid lobe. 4. Stable peripherally sclerotic lesion centered at the inferior endplate of T9, previously non metabolically active. IMPRESSION: 1. Bilateral nephrolithiasis without hydronephrosis. 2. There is no evidence of metastatic disease within the abdomen or pelvis.
[2024-04-03] MEDS: iohexol 350 mg/mL 500 mL Btl (per mL) PO (12:31)
[2024-04-04 12:02] LABS: Basophils # 0.1 10^3/uL (0.0-0.1); Basophils % 0.9 %; Eosinophils % 0.1 %; Hematocrit 44.1 % (36-47); Lymphocytes # 0.9 10^3/uL (0.8-4.8); Lymphocytes % 7.8 %; Mean Corpuscular HGB Conc 30.4 g/dL (30-55); Mean Corpuscular Volume 88.7 fl (85-98); Mean Platelet Volume 10.1 fL (7.4-10.4); Monocytes # 0.6 10^3/uL (0.2-0.9); Neutrophils # 9.58 10^3/uL (1.8-7.7); Neutrophils % 81.8 %; Nucleated Red Blood Cells % 0 %; Platelet Count 191 10^3/cmm (157-399); Red Blood Count 4.97 10^6/uL (3.85-5.65); Red Cell Distribution Width 17.4 % (12.1-15.1)
[2024-04-04 12:21] LABS: Anion Gap 15.8 (5-19); Blood Urea Nitrogen 23 mg/dL (8-23); Carbon Dioxide 26 mmol/L (22-29); Chloride 101 mmol/L (98-107); Potassium 4.8 mmol/L (3.5-5.1); Sodium 138 mmol/L (136-145)
[2024-04-04 12:22] LABS: Alanine Aminotransferase 29 U/L (0-33); Alkaline Phosphatase 52 U/L (35-105); Aspartate Amino Transferase 19 U/L (0-32); Globulin 2.2 g/dL (1.3-4.6); Glomerular Filtration Rate 49.5 mL/min (90-130); Glucose 200 mg/dL (65-115); Osmolality Calculated 295 mOsm/kg (285-295); Total Bilirubin 0.4 mg/dL (0.15-1.2); Total Protein 6.2 g/dL (6.6-8.7)
== END 2024-04-25 23:59 | disposition home or self-care (01) ==
PROVIDERS: Nurse Practitioner Family; PCP Registered Nurse; Visit Provider Internal Medicine Medical Oncology
DX: Z53.9 Procedure and treatment not carried out, unspecified reason; C34.02 Malignant neoplasm of left main bronchus; C79.51 Secondary malignant neoplasm of bone; Z79.52 Long term (current) use of systemic steroids; Z87.891 Personal history of nicotine dependence; Z79.899 Other long term (current) drug therapy; Z92.3 Personal history of irradiation; Z95.828 Presence of other vascular implants and grafts
CPT/HCPCS: 36591; 71250; 74176; 80053; 85025; 99213; 99214

== ENCOUNTER → 2024-04-23 10:31 | Outpatient (BNVA) | payer MEDICARE, SELFPAY | PROVIDERS: PCP Registered Nurse; Visit Provider Student in an Organized Health Care Education/Training Program | DX: M75.41 Impingement syndrome of right shoulder (principal); M75.101 Unspecified rotator cuff tear or rupture of right shoulder, not specified as traumatic | CPT/HCPCS: 99213 ==

== ENCOUNTER 2024-05-09 11:45 | Oncology outpatient (recurring) (ONCR) | payer MEDICARE, SELFPAY ==
--- NOTE | 2024-05-07 11:45 | MR_ITS ---
WS: [id number] MRI HEAD WITH CONTRAST TECHNIQUE: Sagittal T1, T2 axial, T2 axial FLAIR, axial susceptibility weighted imaging, axial diffus ion weighted images, and coronal T2 images were obtained. Pre and post-T1 axial and post T1 coronal i mages. ADC and FSPGR images. CLINICAL INFORMATION: Frequent falls COMPARISON: MRI 10/05/2023 FINDINGS: No evidence of restricted diffusion to suggest acute ischemia. Ventricular system and basal cisterns are patent. Mild small vessel changes. Mild parenchymal volume loss. Normal posterior fossa. Normal v ascular flow voids at the skull base. No extra-axial fluid collections. No evidence of mass or mass e ffect. Paranasal sinuses are well aerated. Mastoid air cells are well aerated. Normal posterior nasop harynx. No hemosiderin on the susceptibly weighted images. Normal optic chiasm and pituitary infundibulum. Te mporal lobes and hippocampal formations are normal in appearance. No abnormal gadolinium enhancement. No evidence of enhancing intracranial metastatic disease. MR/MR head wo/w con [id number] IMPRESSION: 1. No evidence of restricted diffusion to suggest acute ischemia. 2. Mild small vessel changes with mild parenchymal volume loss. 3. No evidence of enhancing intracranial metastatic disease. 4. No other acute findings.
[2024-05-07] MEDS: gadobenate dimeglumine 20 mL vial IV (12:00)
[2024-05-09 12:07] LABS: Basophils # 0.1 10^3/uL (0.0-0.1); Basophils % 0.6 %; Eosinophils # 0.1 10^3/uL (0.0-0.8); Eosinophils % 0.5 %; Hematocrit 41.1 % (36-47); Lymphocytes # 0.9 10^3/uL (0.8-4.8); Lymphocytes % 6.3 %; Mean Corpuscular HGB Conc 31.9 g/dL (30-55); Mean Corpuscular Hemoglobin 28.2 pg (27-33); Mean Corpuscular Volume 88.6 fl (85-98); Mean Platelet Volume 10.2 fL (7.4-10.4); Monocytes # 0.7 10^3/uL (0.2-0.9); Monocytes % 5.3 %; Neutrophils # 11.89 10^3/uL (1.8-7.7); Neutrophils % 85.7 %; Nucleated Red Blood Cells % 0 %; Platelet Count 202 10^3/cmm (157-399); Red Blood Count 4.64 10^6/uL (3.85-5.65); Red Cell Distribution Width 16.6 % (12.1-15.1); White Blood Count 13.88 10^3/uL (3.29-11.43)
[2024-05-09 12:27] LABS: Alanine Aminotransferase 18 U/L (0-33); Albumin Level 3.9 g/dL (3.5-5.2); Alkaline Phosphatase 60 U/L (35-105); Anion Gap 16.5 (5-19); Aspartate Amino Transferase 20 U/L (0-32); Blood Urea Nitrogen 16 mg/dL (8-23); Carbon Dioxide 23 mmol/L (22-29); Chloride 99 mmol/L (98-107); Creatinine Clr Calc Pharmacy 75.9517; Globulin 2.1 g/dL (1.3-4.6); Glomerular Filtration Rate 49.5 mL/min (90-130); Glucose 251 mg/dL (65-115); Osmolality Calculated 288 mOsm/kg (285-295); Potassium 4.5 mmol/L (3.5-5.1); Sodium 134 mmol/L (136-145); Total Bilirubin 0.3 mg/dL (0.15-1.2)
== END 2024-05-25 23:59 | disposition home or self-care (01) ==
PROVIDERS: PCP Registered Nurse; Visit Provider Nurse Practitioner Family
DX: Z53.9 Procedure and treatment not carried out, unspecified reason (principal); C34.02 Malignant neoplasm of left main bronchus; Z87.891 Personal history of nicotine dependence; Z92.3 Personal history of irradiation; Z92.21 Personal history of antineoplastic chemotherapy; Z79.52 Long term (current) use of systemic steroids; Z95.828 Presence of other vascular implants and grafts; E66.9 Obesity, unspecified; Z68.42 Body mass index [BMI] 45.0-49.9, adult
CPT/HCPCS: 36591; 70553; 80053; 85025; 99213; A9577

== ENCOUNTER → 2024-05-16 10:47 | Outpatient (BNVA) | payer MEDICARE, SELFPAY | PROVIDERS: PCP Registered Nurse; Visit Provider Registered Nurse | DX: Z12.11 Encounter for screening for malignant neoplasm of colon (principal); Z12.31 Encounter for screening mammogram for malignant neoplasm of breast; I10 Essential (primary) hypertension; E11.9 Type 2 diabetes mellitus without complications; Z23 Encounter for immunization; Z00.00 Encounter for general adult medical examination without abnormal findings; Z71.85 Encounter for immunization safety counseling | CPT/HCPCS: 80061; 83036 ==

== ENCOUNTER → 2024-05-28 08:52 | Outpatient (BNVA) | payer MEDICARE, SELFPAY | PROVIDERS: PCP Registered Nurse; Visit Provider Internal Medicine | DX: I35.1 Nonrheumatic aortic (valve) insufficiency (principal); I87.2 Venous insufficiency (chronic) (peripheral); I25.10 Atherosclerotic heart disease of native coronary artery without angina pectoris; Z87.891 Personal history of nicotine dependence; I10 Essential (primary) hypertension; I48.91 Unspecified atrial fibrillation; M25.512 Pain in left shoulder; M25.511 Pain in right shoulder; M75.42 Impingement syndrome of left shoulder; M75.41 Impingement syndrome of right shoulder; M75.101 Unspecified rotator cuff tear or rupture of right shoulder, not specified as traumatic | CPT/HCPCS: 20610; 73030; 99213; 99214; J3301 ==

== ENCOUNTER → 2024-05-29 13:47 | Outpatient (BNVA) | payer MEDICARE, SELFPAY | PROVIDERS: PCP Registered Nurse; Visit Provider Surgery | DX: Z12.11 Encounter for screening for malignant neoplasm of colon (principal) | CPT/HCPCS: 99024; 99214 ==

== ENCOUNTER 2024-06-05 11:20 | Outpatient (CLI) | payer MEDICARE, SELFPAY ==
--- NOTE | 2024-06-05 11:20 | MM_ITS ---
WS: [id number] BILATERAL 3D TOMOSYNTHESIS DIGITAL SCREENING MAMMOGRAPHY WITH CAD CLINICAL INFORMATION: SCREENING HISTORY: Screening mammogram. No current complaints. COMPARISON: 2022 TECHNIQUE: Bilateral CC and MLO views. FINDINGS: Scattered fibroglandular densities bilaterally. No suspicious focal mass, asymmetry, calcifications, or architectural distortion. No evidence of malignancy. Vascular calcification. Incidental punctate a nd lucent centered calcifications. MM/MM scr tomosynthesis [id number] IMPRESSION: DENSITY: There are scattered areas of fibroglandular density. BI-RADS: 2 - Benign. FOLLOW UP: 1 Year Follow-up Recommend return to annual screening mammography.
== END 2024-06-05 11:28 | disposition home or self-care (01) ==
PROVIDERS: PCP Registered Nurse; Visit Provider Registered Nurse
DX: Z12.31 Encounter for screening mammogram for malignant neoplasm of breast (principal); R92.323 Mammographic fibroglandular density, bilateral breasts; R92.1 Mammographic calcification found on diagnostic imaging of breast
CPT/HCPCS: 77063; 77067

== ENCOUNTER 2024-06-06 05:55 | Day surgery (SDC) | payer MEDICARE, SELFPAY ==
--- NOTE | 2024-06-06 06:14 | W.PM.OPSUD ---
Surgery/Procedure H&P Update DATE OF PROCEDURE: June 06, 2024 DATE H&P PERFORMED: 05/29/24 H&P UPDATE INFORMATION: I have reviewed H&P completed within last 30 days, I have examined patient prior to procedure, No changes to prior documentation and H[place] is [place] [facility] [place] date indicated PLANNED PROCEDURE: Operation Date: 06/06/24 07:40 Proposed Procedures p Colonoscopy - 99619, g0121, Z12.11(Not Applicable) - Royal Kerr MD
[2024-06-06 06:38] VITALS: BMI 50.1
[2024-06-06 06:45] VITALS: BP 152/80; PULSE 49; RESP 18; TEMP 36.4; O2SAT 95
[2024-06-06] MEDS: sodium chloride 0.9% 500 ML 15 ML IV (06:46)
--- NOTE | 2024-06-06 06:57 | ANES.PREANE2 ---
Pre-Anesthetic Assessment Height/Weight: Height 5 ft 8 in Weight 330 lb Temp Pulse Resp BP Pulse Ox O2 Del Method 97.5 F L 49 L 18 152/80 95 Room Air 06/06/24 06:45 06/06/24 06:45 06/06/24 06:45 06/06/24 06:45 06/06/24 06:45 06/06/24 06:45 Preop Diagnosis: Screening colonoscopy Operation Date: 06/06/24 07:40 Proposed Procedures p Colonoscopy - 87973, g0121, Z12.11(Not Applicable) - Royal Kerr MD Was Beta Radha taken within 24 hours: N/A Was Clonidine taken within 24 hours: N/A Last intake: Intake Last Liquid Date 06/05/24 Last Liquid Time 20:00 Last Solid Date 06/04/24 Last Solid Time 19:00 Social No alcohol and No tobacco Quit smoking in 2009 Exam alert, oriented x 3 and regular rate & rhythm Decreased breath sounds bilaterally Airway Submandibular: within normal limits Cervical ROM: within normal limits Mallampati: Class III Anesthetic Plan ASA status: 4 Anesthesia: General Other: No prior issues with anesthesia Completed bowel prep Patient has a significant history of CAD s/p stent x 2 and hypertension. On chronic Eliquis. Taken 2 days ago Type 2 diabetes GERD on Protonix Patient has a history of lung cancer, underwent chemo/radiation. Port in place. On home O2 1 L at baseline Labs reviewed 05/09/2024 and acceptable for procedure Echo performed in February. EF 42% in M-mode, 31% in planimetry Global hypokinesis noted Plan for MAC anesthesia Medications/Allergies Home Medications Medication Instructions Recorded Confirmed Last Taken Type aspirin 81 mg tablet,delayed 81 mg PO QAM 06/21/19 06/04/24 06/05/24 History release Diabetic Shoes #1 ea 03/17/21 06/04/24 Unknown Rx blood sugar diagnostic #100 ea 01/03/22 06/04/24 Unknown Rx lancets (Accu-Chek Softclix #200 ea 01/03/22 06/04/24 Unknown Rx Lancets) nitroglycerin 0.4 mg sublingual 0.4 mg sublingual Q5M PRN chest 02/24/22 06/06/24 01/10/24 Rx tablet pain #25 tabs Diabetic Shoes and 3 inserts #1 ea 12/28/22 06/04/24 Unknown Rx pen needle, diabetic 32 gauge x #100 ea 05/16/23 06/04/24 Unknown Rx 5/16 (Comfort EZ Pen Willard) albuterol sulfate 90 mcg/actuation 2 puff inhalation Q6H PRN 05/17/23 06/06/24 09/06/23 History aerosol inhaler Shortness Of Breath ondansetron HCl 8 mg tablet 8 mg PO Q8H PRN nausea and 09/05/23 06/06/24 01/10/24 Rx vomiting #30 tabs PORTABLE OXYGEN CONCENTRATOR AND #1 ea 11/16/23 06/04/24 Unknown Rx SUPPLIES cetirizine 5 mg tablet 5 mg PO DAILY PRN Allergy Symptoms 01/22/24 06/04/24 06/04/24 Rx 7 days #7 tabs furosemide 20 mg tablet 20 mg PO DAILY 02/08/24 06/06/24 06/05/24 History CPAP (Auto-Titrating CPAP) #1 ea 02/12/24 06/04/24 Unknown Rx losartan 100 mg tablet 100 mg PO DAILY #90 tabs 02/15/24 06/04/24 06/05/24 Rx metoprolol tartrate 50 mg tablet 50 mg PO BID #180 tabs 03/19/24 06/04/24 06/06/24 Rx duloxetine 20 mg capsule,delayed See Rx Instructions .Route 04/01/24 06/04/24 06/05/24 Rx release .COMPLEX #180 caps diabetic shoes with 3 inserts #1 ea 04/03/24 06/04/24 Unknown Rx amiodarone 200 mg tablet (Pacerone) 200 mg PO DAILY 90 days #90 tabs 04/08/24 06/04/24 06/05/24 Rx cholecalciferol (vitamin D3) 1,250 See Rx Instructions .Route 04/19/24 06/04/24 05/30/24 Rx mcg (50,000 unit) capsule .COMPLEX #12 caps pantoprazole 40 mg tablet,delayed See Rx Instructions .Route 04/23/24 06/04/24 06/05/24 Rx release .COMPLEX #90 tabs rosuvastatin 40 mg tablet See Rx Instructions .Route 05/13/24 06/04/24 06/05/24 Rx .COMPLEX #90 tabs spironolactone 25 mg tablet See Rx Instructions .Route 05/13/24 06/04/24 06/05/24 Rx .COMPLEX #180 tabs amlodipine 10 mg tablet 10 mg PO DAILY 90 days #90 tabs 05/16/24 06/04/24 06/06/24 Rx apixaban 5 mg tablet (Eliquis) See Rx Instructions .Route 05/28/24 06/04/24 06/04/24 Rx .COMPLEX #60 tabs Allergies Allergy/AdvReac Type Severity Reaction Status Date / Time Sulfa (Sulfonamide Allergy Unknown Verified 06/06/24 06:37 Antibiotics) sulfamethoxazole Allergy itching Verified 06/06/24 06:37 [From Bactrim] trimethoprim [From Bactrim] Allergy itching Verified 06/06/24 06:37 Current Medications Generic Name Dose Route Start Last Admin Trade Name Freq PRN Reason Stop Dose Admin Sodium Chloride 500 mls @ 15 mls/hr 06/06/24 05:59 06/06/24 06:46 Sodium Chloride 0.9% IV 06/07/24 05:58 15 mls/hr .Q24H PRN Administration COLONOSCOPY FLUIDS PFSH Anesthesia Medical History (Updated 05/29/24 @ 14:05 by GANESH Dutta) Small cell lung cancer Port-A-Cath in place Mixed connective tissue disease Advanced directives, counseling/discussion Former heavy cigarette smoker (20-39 per day) Quit in 2009 Aortic insufficiency dx 10/14/02 Dr Kam Martinez Arthralgia of both knees Venous insufficiency of both lower extremities Opioid contract exists Personal history of nicotine dependence Quit 2009 History of prior cigarette smoking Obesity Hypothyroidism (acquired) Chronic joint pain Anxiety and depression Hyperlipidemia Common migraine with intractable migraine Left Achilles tendinitis Back pain, lumbosacral Type 2 diabetes mellitus Essential hypertension COPD (chronic obstructive pulmonary disease) Gastroesophageal reflux disease without esophagitis Surgical History (Updated 05/29/24 @ 14:05 by GANESH Dutta) Stented coronary artery 2 stents done 02/16/96 in [place] History of knee replacement 2009 History of delivery Family History Other CAD (coronary artery disease) Cancer Diabetes Denies family history of Rheumatoid arthritis Lupus Hyperlipidemia Chronic kidney disease (CKD) Hypertension Stroke Social History Smoking and tobacco/nicotine status: former use of tobacco/nicotine Quit status (tobacco/nicotine): has quit using Year quit tobacco: 2009 Former quit date comment: 3 ppd X 37 years Alcohol intake: never Substance/Drug Use: never Lives independently: No Household members: spouse Marital status: Current occupational status: unemployed Do you think of yourself as: Straight/Heterosexual Current gender identity: Female Data Anesthesia Cardiac Studies: Echocardiogram 09/01/22 Echocardiogram Ultrasound 11/18/20 Sestamibi Stress Test (Cardiology) 01/12/21 Cardiac Event Monitor 06/16/23
[2024-06-06 08:20] VITALS: BP 112/57; PULSE 49; RESP 14; TEMP 36.3; O2SAT 100
[2024-06-06 08:30] VITALS: BP 130/63; PULSE 71; RESP 16; O2SAT 98
[2024-06-06 08:45] VITALS: BP 130/77; PULSE 69; RESP 16; O2SAT 98
--- NOTE | 2024-06-06 09:00 | ANE.PACU2 ---
Inpatient post-anesthesia follow up: Airway intact: Yes Vital signs: Temperature 97.4 F Pulse Rate 69 Respiratory Rate 16 Blood Pressure 130/77 Pulse Oximetry 98 Oxygen Delivery Me thod Room Air Oxygen Flow Rate 5 Fraction of Inspir ed Oxygen Hydration adequate: Yes Nausea and vomiting: No Pain level: 1 Mental status: Baseline
== END 2024-06-06 09:00 | disposition home or self-care (01) ==
PROVIDERS: PCP Registered Nurse; Visit Provider Surgery
PROC: 0DJD8ZZ Inspection of Lower Intestinal Tract, Via Natural or Artificial Opening Endoscopic (ICD-10-PCS; CPT 45378; principal; 2024-06-06 07:40)
DX: Z12.11 Encounter for screening for malignant neoplasm of colon (principal); D12.2 Benign neoplasm of ascending colon; D12.0 Benign neoplasm of cecum; D12.3 Benign neoplasm of transverse colon; Z79.82 Long term (current) use of aspirin; Z87.891 Personal history of nicotine dependence; E66.9 Obesity, unspecified; Z68.43 Body mass index [BMI] 50.0-59.9, adult; E03.9 Hypothyroidism, unspecified; E78.5 Hyperlipidemia, unspecified; E11.9 Type 2 diabetes mellitus without complications; J44.9 Chronic obstructive pulmonary disease, unspecified; I25.10 Atherosclerotic heart disease of native coronary artery without angina pectoris; Z95.5 Presence of coronary angioplasty implant and graft; I10 Essential (primary) hypertension; Z79.01 Long term (current) use of anticoagulants; Z85.118 Personal history of other malignant neoplasm of bronchus and lung; Z92.21 Personal history of antineoplastic chemotherapy
CPT/HCPCS: 45380; 45385; 88305; J2704; J3490; J7040

== ENCOUNTER 2024-06-13 10:17 | Oncology outpatient (recurring) (ONCR) | payer MEDICARE, SELFPAY | END 2024-06-25 23:59 | disposition home or self-care (01) | PROVIDERS: PCP Registered Nurse; Visit Provider Nurse Practitioner Family | DX: Z45.2 Encounter for adjustment and management of vascular access device (principal) | CPT/HCPCS: 96523 ==

== ENCOUNTER → 2024-06-24 09:54 | Outpatient (BNVA) | payer MEDICARE, SELFPAY | PROVIDERS: PCP Registered Nurse; Visit Provider Podiatrist Foot & Ankle Surgery | DX: E11.8 Type 2 diabetes mellitus with unspecified complications (principal); I73.9 Peripheral vascular disease, unspecified; E11.40 Type 2 diabetes mellitus with diabetic neuropathy, unspecified; L60.3 Nail dystrophy | CPT/HCPCS: 11721 ==

== ENCOUNTER → 2024-07-10 10:35 | Outpatient (BNVA) | payer MEDICARE, SELFPAY | PROVIDERS: PCP Registered Nurse; Visit Provider Surgery | DX: Z09 Encounter for follow-up examination after completed treatment for conditions other than malignant neoplasm (principal) | CPT/HCPCS: 99213 ==

== ENCOUNTER → 2024-07-12 10:27 | Outpatient (BNVA) | payer OTHER, SELFPAY | PROVIDERS: PCP Registered Nurse; Visit Provider Registered Nurse | DX: R10.2 Pelvic and perineal pain (principal) | CPT/HCPCS: 81000; 87086 ==

== ENCOUNTER 2024-07-26 09:36 | Oncology outpatient (recurring) (ONCR) | payer OTHER, SELFPAY ==
[2024-07-10 13:35] LABS: Blood Urea Nitrogen 23 mg/dL (8-23); Glomerular Filtration Rate 26.4 mL/min (90-130)
--- NOTE | 2024-07-10 14:03 | CT_ITS ---
WS: [id number] CT CHEST, ABDOMEN AND PELVIS NONCONTRAST HISTORY: lung cancer TECHNIQUE: Contiguous 5 mm axial imaging performed through the chest, abdomen and pelvis without IV c ontrast, oral contrast has been provided. Coronal and sagittal reformats chest. Coronal and sagittal reformats through the abdomen and pelvis. All CT scans at [facility] use at least one of thes e dose optimization techniques: automated exposure control; mA and/or kV adjustment per patient size (includes targeted exams where dose is matched to clinical indication); or iterative reconstruction. CONTRAST: None DLP: 1422.30 mGy.cm COMPARISON: 04/03/2024, PET/CT 01/16/[address]: Posttreatment consolidation with fibrosis and bronchiectasis in the LEFT upper lobe continu es to slowly improving in size and appearance. There has been no progression of posttreatment consoli dation identified. Focal consolidation and subsegmental atelectasis extends also into the superior se gment of the LEFT lower lobe. New 7 mm noncalcified nodule LEFT lower lobe. Mild atherosclerosis aort a. Normal size pulmonary artery. No mediastinal or hilar adenopathy. Scattered coronary artery calcif ications. Small hiatal hernia. Right-sided Mediport remains unchanged in position with the tip terminating in t he RIGHT ventricle. Abdomen CT: No mass identified within the liver or adrenal glands on this unenhanced exam. Spleen is normal size with granulomata. Mild pancreatic atrophy. Normal gallbladder. Mild bilateral renal atrop hy with nonobstructing calcifications. Atherosclerotic plaque within the abdominal aorta but no aneur ysm. No adenopathy or ascites. Stomach is markedly distended with the oral contrast. No small bowel obstruction. Mild diffuse consti pation. No evidence for appendicitis. Mild diverticulosis without acute diverticulitis. Pelvic CT: No free fluid or adenopathy. Urinary bladder is not distended. Uterus is present. Degenerative changes throughout the thoracic and lumbar spines with disc base narrowing and desiccati on. Schmorl's nodes along the superior endplate of L3, L2, T10 and T12. Mild anterior wedging of L1. CT/[place] [id number] IMPRESSION: 1. Continued slow improvement in the posttreatment fibrotic consolidation in t he LEFT upper lobe and superior segment LEFT lower lobe. 2. New 7 mm noncalcified nodule in the LEFT lower lobe. Recommend follow-up est CT in 3 months. 3. No mediastinal or hilar adenopathy. 4. No metastatic disease identified on this unenhanced exam in the liver or ad renal glands. 5. No ascites or adenopathy in the abdomen or pelvis. 6. Mediport tip terminates in the RIGHT ventricle.
[2024-07-10] MEDS: iohexol 350 mg/mL 500 mL Btl (per mL) PO (14:05)
[2024-07-16 09:00] LABS: Basophils # 0.1 10^3/uL (0.0-0.1); Eosinophils # 0.1 10^3/uL (0.0-0.8); Eosinophils % 0.7 %; Hematocrit 45.6 % (36-47); Lymphocytes # 1.4 10^3/uL (0.8-4.8); Lymphocytes % 14.8 %; Mean Corpuscular HGB Conc 31.4 g/dL (30-55); Mean Corpuscular Hemoglobin 28.5 pg (27-33); Mean Corpuscular Volume 90.8 fl (85-98); Mean Platelet Volume 10.1 fL (7.4-10.4); Monocytes # 0.7 10^3/uL (0.2-0.9); Monocytes % 7.8 %; Neutrophils # 6.63 10^3/uL (1.8-7.7); Neutrophils % 72.7 %; Nucleated Red Blood Cells % 0 %; Platelet Count 184 10^3/cmm (157-399); Red Blood Count 5.02 10^6/uL (3.85-5.65); Red Cell Distribution Width 15.3 % (12.1-15.1); White Blood Count 9.11 10^3/uL (3.29-11.43)
[2024-07-16 09:13] LABS: Alanine Aminotransferase 20 U/L (0-33); Albumin Level 4.1 g/dL (3.5-5.2); Alkaline Phosphatase 54 U/L (35-105); Anion Gap 16.5 (5-19); Aspartate Amino Transferase 12 U/L (0-32); Blood Urea Nitrogen 34 mg/dL (8-23); Calcium 9.7 mg/dL (8.5-10.5); Carbon Dioxide 25 mmol/L (22-29); Chloride 103 mmol/L (98-107); Creatinine Clr Calc Pharmacy 69.6224; Globulin 2.5 g/dL (1.3-4.6); Glomerular Filtration Rate 44.8 mL/min (90-130); Glucose 150 mg/dL (65-115); Lactate Dehydrogenase 301 U/L (135-214); Osmolality Calculated 300 mOsm/kg (285-295); Potassium 4.5 mmol/L (3.5-5.1); Sodium 140 mmol/L (136-145); Total Bilirubin 0.4 mg/dL (0.15-1.2); Total Protein 6.6 g/dL (6.6-8.7)
--- NOTE | 2024-07-16 10:07 | ONCRAD EPV_ITS ---
Radiation Oncology Established Patient Visit Patient: Rosas Gonzales [id number] : 1955> Age: 69> Sex: Female> Dictated by: Dr. Abimbola Maldonado Date of Service: 07/16/2024 Referring Physician(s) : Alirio Diagnosis: C80.1 - Malignant (primary) neoplasm, unspecified, Diagnosed 08/01/2023 (Active) Radiotherapy to Date: Course: LT Lung 2023, Treatment Site: LT [id number], Ref. ID: [id number], Energy: 6X, Dose/Fx (cGy): 200, #Fx: 30 / 30, Dose Correction (cGy): 0, Total Dose Delivered (cGy): 6,000, Start Date: 09/07/2023, End Date: 10/18/2023, Elapsed Days: 41 Current History: Patient is a 68-year-old lady who underwent combined modality therapy for small cell carcinoma of the lung completing the radiation portion of her treatment end of September. She continued on after that with additional chemotherapy. Her case was complicated by hospitalization in November in [place] for which she required intubation and short-term ventilation. In December she had a biopsy of the right hip which was negative. She also had a PET scan which did not reveal any evidence of disease at that time. She was readmitted to the hospital with atrial fibs at the end of November. Her last follow-up after all of that transpired in February was in medical oncology. At that point she still had a very poor performance status. She was on prednisone. She has had additional scans in the interim with an MRI in April which did not reveal any metastatic disease. She is here today to discuss prophylactic cranial radiation. Current Medications: Allergies: Current Complaints / Review of Systems: . Vital Signs: Performed on 07/16/2024 9:55 AM BMI - 49.112 kg/m2 (high), Height - 68 in, Weight - 323 lbs, Temperature - 97.9 f, Pulse - 69 /min, Respiration - 17 /min, O2 Sat - 95 % (low), Pain - 0, Fatigue - 0 and BP - 139/ 72 mm(hg). Physical Exam: General: Alert and oriented x 3. No acute distress. HEENT: Normocephalic atraumatic. Pupils are equal, sclera clear, extraocular muscles intact.. LUNGS: Respiratory is regular nonlabored. ABDOMEN: Markedly protuberant android pattern EXTREMITIES: No obvious edema or lymphedema is noted. NEUROLOGIC: Alert and orient x 3. Gait and speech within normal limits Psych: Affect appropriate for current situation. Performance Status: 100 Lab: None pending. Pathology: Primary, c80.1 - malignant (primary) neoplasm, unspecified, Diagnosed 08/01/2023 (active) . Imaging: See HPI Impression: Small cell carcinoma of the lung with complete response Plan: At this point we talked about proceeding with the prophylactic cranial radiation now that her overall health is stabilized. I reviewed the treatment protocol. We discussed the dosage. We reviewed the risks and side effects both acute and long-term. She is familiar with the simulation process and the daily treatment regiment. We talked about a 2-week course of treatment. At this point she is agreed to proceed. She will undergo simulation and begin her treatments so that we can get these done prior to her cataract surgery in mid July. Signed by: 07/16/2024 10:05:37 AM <<Signature on File>> Time spent with : CPT Code: CPT Code:
--- NOTE | 2024-07-23 15:08 | ONCRAD TMN_ITS ---
Radiation Oncology Weekly Treatment Management Patient: Rosas Arriaga MR#: [id number] : 1955> Attending Physician: Dr. Abimbola Maldonado Date of Service: 07/23/2024 Fractions: 2 out of 10 Referring Physician(s) : Diagnosis: C80.1 - Malignant (primary) neoplasm, unspecified, Diagnosed 08/01/2023 (Active) Radiotherapy to date: Course: Whole Brain 2024, Treatment Site: [id number], Ref. ID: [id number], Energy: 15X, Dose/Fx (cGy): 200, #Fx: 2 / 10, Dose Correction (cGy): 0, Total Dose Delivered (cGy): 400, Start Date: 07/22/2024, Elapsed Days: 1 Reason for visit: The patient is being seen today as part of their regularly scheduled weekly on treatment visits to assess for acute toxicities from radiotherapy. Review of Systems: Patient denies any issues Vital Signs: Performed on 07/23/2024 2:41 PM BMI - 49.66 kg/m2 (high), Height - 68 in, Weight - 326.6 lbs, Temperature - 95.8 f, Pulse - 72 /min, Respiration - 18 /min, O2 Sat - 94 % (low), Pain - 0, Fatigue - 0 and BP - 112/ 78 mm(hg). Physical Exam: No changes on exam Imaging: Radiation therapy imaging related to accurate target localization (i.e. KV, MV and CBCT) was reviewed. Appropriate changes, if any, were made to ensure treatment accuracy. Plan: Will continue with treatments as planned Signed by: Dr. Abimbola Maldonado 07/23/2024 3:06:42 PM
== END 2024-07-26 23:59 | disposition home or self-care (01) ==
PROVIDERS: Internal Medicine; PCP Registered Nurse; Visit Provider Radiology Radiation Oncology
DX: Z51.0 Encounter for antineoplastic radiation therapy (principal); Z85.118 Personal history of other malignant neoplasm of bronchus and lung; Z29.89 Encounter for other specified prophylactic measures
CPT/HCPCS: 36591; 71250; 74176; 77295; 77300; 77332; 77334; 77387; 77412; 80053; 82565; 83615; 84520; 85025

== ENCOUNTER 2024-08-02 09:44 | Oncology outpatient (recurring) (ONCR) | payer MEDICARE, SELFPAY ==
--- NOTE | 2024-07-30 11:37 | ONCRAD TMN_ITS ---
Radiation Oncology Weekly Treatment Management Patient: Rosas Arriaga MR#: [id number] : 1955> Attending Physician: Dr. Abimbola Maldonado Date of Service: 07/30/2024 Fractions: 7 out of 10 Referring Physician(s) : Diagnosis: C80.1 - Malignant (primary) neoplasm, unspecified, Diagnosed 08/01/2023 (Active) Radiotherapy to date: Course: Whole Brain 2024, Treatment Site: [id number], Ref. ID: [id number], Energy: 15X, Dose/Fx (cGy): 200, #Fx: 7 / 10, Dose Correction (cGy): 0, Total Dose Delivered (cGy): 1,400, Start Date: 07/22/2024, Elapsed Days: 8 Reason for visit: The patient is being seen today as part of their regularly scheduled weekly on treatment visits to assess for acute toxicities from radiotherapy. Review of Systems: Patient denies any complaints other than fatigue Vital Signs: Performed on 07/30/2024 11:13 AM BMI - 49.721 kg/m2 (high), Height - 68 in, Weight - 327 lbs, Temperature - 97.4 f, Pulse - 58 /min (low), Respiration - 18 /min, O2 Sat - 95 % (low), Pain - 0, Fatigue - 0 and BP - 120/ 80 mm(hg). Physical Exam: No changes on exam Imaging: Radiation therapy imaging related to accurate target localization (i.e. KV, MV and CBCT) was reviewed. Appropriate changes, if any, were made to ensure treatment accuracy. Plan: We we will continue treatments as planned Signed by: Dr. Abimbola Maldonado 07/30/2024 11:35:55 AM
== END 2024-08-23 23:59 | disposition home or self-care (01) ==
PROVIDERS: PCP Registered Nurse; Visit Provider Radiology Radiation Oncology
DX: Z51.0 Encounter for antineoplastic radiation therapy (principal); Z85.118 Personal history of other malignant neoplasm of bronchus and lung; C34.02 Malignant neoplasm of left main bronchus; Z53.9 Procedure and treatment not carried out, unspecified reason; Z45.2 Encounter for adjustment and management of vascular access device; Z95.828 Presence of other vascular implants and grafts
CPT/HCPCS: 77336; 77387; 77412; 87086; 99024

== ENCOUNTER → 2024-08-19 08:53 | Outpatient (BNVA) | payer MEDICARE, SELFPAY | PROVIDERS: PCP Registered Nurse; Visit Provider Registered Nurse | DX: C34.02 Malignant neoplasm of left main bronchus (principal); I48.91 Unspecified atrial fibrillation; E11.9 Type 2 diabetes mellitus without complications | CPT/HCPCS: 80053; 83036; 84443; 85025 ==

== ENCOUNTER → 2024-08-28 14:50 | Outpatient (BNVA) | payer MEDICARE, SELFPAY | PROVIDERS: PCP Registered Nurse; Visit Provider Student in an Organized Health Care Education/Training Program | DX: M75.41 Impingement syndrome of right shoulder (principal); M75.42 Impingement syndrome of left shoulder; Z71.89 Other specified counseling | CPT/HCPCS: 20610; 99213; J3301 ==

== ENCOUNTER 2024-09-13 08:53 | Oncology outpatient (recurring) (ONCR) | payer MEDICARE, SELFPAY ==
--- NOTE | 2024-09-13 09:30 | PETR_ITS ---
PROCEDURE INFORMATION: Exam: PET/CT Skull Base to Mid-thigh Exam date and time: 09/13/2024 10:16 AM Age: 69 years old Clinical indication: Condition or disease; Primary cancer: Malignant neoplasm of left main bronchus; Prior surgery; Surgery date: 6+ months; Surgery type: Port, heart stents, tubal; Additional info: Compare to previous LABS AND CLINICAL REPORTS: Glucose: 141 mg/dl Treatment strategy for malignancy (PET staging): Restaging (PS) TECHNIQUE: Imaging protocol: Following at least four-hour fasting and following the injection of radiopharmaceutical, low dose CT images were obtained. Then, PET images were obtained. Attenuation corrected images were constructed using the CT scan. Fused images of PET and CT were reviewed. The standardized uptake values (SUV) reported below are maximum values within a region of interest, expressed in gm/ml. Exam includes orbital meatal line to mid-thigh. SUV normalization method: BodyWeight Radiopharmaceutical: 10.91 mCi F-18 FDG (Fluorodeoxyglucose), IV. Time of imaging post radiopharmaceutical administration: 54 minutes Injection site: right ac COMPARISON: CT chest abdomen and pelvis 07/10/2024, PT PET skull to thigh SUBS [id number] 01/16/2024 9:00 AM FINDINGS: Limitations: Motion artifact. Tubes, catheters and devices: A right internal jugular central venous port catheter appears to terminate in the right ventricle. Brain: Visualized brain has normal physiologic uptake. Pharynx: No abnormal uptake. Larynx: No abnormal uptake. Lungs, pleura and trachea: Similiar ill-defined streaky density in the left upper lobe extending from the apex to the mid to superior left upper lobe is not radiotracer avid on CT series . Mild similar patchy density in the left perihilar region involving the left lower lobe is noted compared to the CT of 07/10/2024, SUV max 3.7 (previously 10.0) on image 89. Mild ill-defined streaky and patchy density in the right lung is noted without elevated uptake. Mild bilateral centrilobular emphysematous changes. A previously described 7 mm left lower lobe nodule (on the CT of 07/10/2024) is not currently identified. Heart: Normal physiologic uptake. Mediastinal space: No abnormal uptake. Diaphragm: There is a small hiatal hernia, with physiologic appearing uptake in this region. Liver: No abnormal uptake. A calcified granuloma in the liver is noted. Gallbladder and biliary ducts: No abnormal uptake. Pancreas: No abnormal uptake. Spleen: No abnormal uptake. Adrenal glands: No abnormal uptake. Kidneys and ureters: Normal physiologic uptake. There are small nonobstructing bilateral renal calculi. Stomach and bowel: A new approximately 7 mm focus of uptake in the mid anterior pelvic region is present, SUV max 7.1 on PET series 301, image 196. This uptake appears to be centered in the region of a loop of jejunum without well-defined lesion on the CT images. Vasculature: No abnormal uptake. Diffuse atherosclerotic calcifications are noted. Lymph nodes: No abnormal uptake. No lymphadenopathy in the head, neck, chest, abdomen, pelvis, and extremities. Skeleton: No abnormal uptake in the visualized axial and appendicular skeleton. Degenerative changes in the spine are noted diffusely. Three Soft tissues: A new small focus of uptake within the gluteal fold is noted, SUV max 4.9 on PET series 301, image 226, with no correlating lesion on the CT images. METRICS: Mediastinal blood pool: SUV max 3.9, SUV mean 2.7 PET/PET skull to thigh SUBS [id number] IMPRESSION: 1. Mild patchy streaky density in the left lower lobe perihilar region is similar compared with 07/10/2024 with interval decrease in uptake compared with the prior PET-CT. Residual uptake in this region may represent posttreatment inflammatory changes. A malignant etiology is less likely. 2. A small new focus of elevated uptake within a loop of small bowel in the mid pelvis is identified without a definite correlating lesion on the CT images. Assessment of the bowel is limited by incomplete distension. This uptake may be physiologic or inflammatory in etiology. A malignant etiology is less likely but cannot be entirely excluded. Attention to this region on follow-up imaging is recommended. 3. A small new focus of uptake within the gluteal fold is identified, with no correlating lesion on the CT images, possibly related to radiotracer urinary skin contamination. An inflammatory or malignant etiology is less likely. 4. Additional nonurgent findings as detailed above.
== END 2024-09-23 23:59 | disposition home or self-care (01) ==
LOC: RAD 09:15 → ONCMED 09-16 09:47
PROVIDERS: PCP Registered Nurse; Visit Provider Internal Medicine Medical Oncology
DX: C34.02 Malignant neoplasm of left main bronchus (principal); J98.4 Other disorders of lung; R93.3 Abnormal findings on diagnostic imaging of other parts of digestive tract
CPT/HCPCS: 78815; A9552

== ENCOUNTER → 2024-09-23 09:44 | Outpatient (BNVA) | payer MEDICARE, SELFPAY | PROVIDERS: PCP Registered Nurse; Visit Provider Podiatrist Foot & Ankle Surgery | DX: E11.40 Type 2 diabetes mellitus with diabetic neuropathy, unspecified (principal); L60.3 Nail dystrophy; M21.371 Foot drop, right foot; I73.9 Peripheral vascular disease, unspecified | CPT/HCPCS: 11721; 99213 ==

== ENCOUNTER 2024-10-08 12:59 | Outpatient (CLI) | payer MEDICARE, SELFPAY | END 2024-10-08 13:00 | disposition home or self-care (01) | LOC: NSACUTE 14:40 | PROVIDERS: Family Provider Registered Nurse; PCP Registered Nurse; Referring Provider Podiatrist Foot & Ankle Surgery; Visit Provider Psychiatry & Neurology Neurology | DX: M54.16 Radiculopathy, lumbar region (principal); M43.06 Spondylolysis, lumbar region; M21.371 Foot drop, right foot | CPT/HCPCS: 95885; 95910 ==

== ENCOUNTER 2024-10-08 14:41 | Outpatient (CLI) | payer MEDICARE, SELFPAY ==
--- NOTE | 2024-10-08 14:46 | XRR_ITS ---
PROCEDURE INFORMATION: Exam: XR Sacrum and Coccyx, 2 or More Views Exam date and time: 10/08/2024 3:17 PM Age: 69 years old Clinical indication: Injury or trauma; Fall; Blunt trauma (contusions or hematomas); Injury date: 4 days ago; Additional info: W19. Xxxa - unspecified fall, initial encounter TECHNIQUE: Imaging protocol: XR of the sacrum and coccyx, 2 or more views. COMPARISON: 1. PT PET skull to thigh SUBS [id number] 09/13/2024 10:16 AM 2. CR XR lumbar spine 2-3V* [id number] 03/03/2020 11:22 AM FINDINGS: Bones/joints: A lateral image was not submitted, otherwise no acute fracture of the sacrum/coccyx. No dislocation. Normal bone mineralization. Mild degenerative changes at the right and left hips. Multilevel degenerative changes of varying severity in the visualized spine. Mild degenerative changes at the right and left sacroiliac joints. Osseous findings are stable. Soft tissues: No soft tissue swelling or soft tissue emphysema. No radiopaque foreign body. Calcified injection granulomas in the right gluteal subcutaneous tissues are stable. Gastrointestinal tract: Linear radiopaque focus in the right lower quadrant of the abdomen is stable in position, PET/CT scan showed this to be in the ascending colon. XR/XR sacrum coccyx min 2V [id number] IMPRESSION: 1. A lateral image was not submitted, otherwise no acute fracture of the sacrum/coccyx. No acute fracture. CT scan of the sacrum/coccyx would be recommended if clinical concern for fracture persists. 2. Linear radiopaque focus in the right lower quadrant of the abdomen is stable in position, PET/CT scan showed this to be in the ascending colon. Recommend clinical correlation. 3. Incidental/nonacute findings are listed in the report.
--- NOTE | 2024-10-08 14:46 | XRR_ITS ---
PROCEDURE INFORMATION: Exam: XR Lumbosacral Spine Exam date and time: 10/08/2024 3:17 PM Age: 69 years old Clinical indication: Injury or trauma; Fall; Blunt trauma (contusions or hematomas); Injury date: 4 days ago; Additional info: W19. Xxxa - unspecified fall, initial encounter TECHNIQUE: Imaging protocol: Radiologic exam of the lumbosacral spine. Views: 2 or 3 views. COMPARISON: 1. PT PET skull to thigh SUBS [id number] 09/13/2024 10:16 AM 2. CR XR lumbar spine 2-3V* [id number] 03/03/2020 11:22 AM FINDINGS: Bones/joints: 5 [id number] vertebral bodies. Stable mild compression deformity of the superior endplate of L3. No subluxation. Normal bone mineralization. Stable multilevel degenerative changes of varying severity in the visualized spine. Stable mild degenerative changes of the right and left sacroiliac joints. No acute fracture. Soft tissues: No paravertebral soft tissue abnormality or soft tissue emphysema. No radiopaque foreign body. Gastrointestinal tract: Linear radiopaque focus in the right lower quadrant of the abdomen is stable in position, PET/CT scan showed this to be in the ascending colon. Recommend clinical correlation. Vasculature: Atherosclerotic changes in the visualized arteries. XR/XR lumbar spine 2-3V* [id number] IMPRESSION: 1. No acute fracture of the lumbar spine. CT scan would be recommended if there is continuing clinical concern for fracture. 2. Stable mild compression deformity of the superior endplate of L3. 3. Stable multilevel degenerative changes of varying severity in the visualized spine. 4. Stable mild degenerative changes of the right and left sacroiliac joints. 5. Linear radiopaque focus in the right lower quadrant of the abdomen is stable in position, PET/CT scan showed this to be in the ascending colon. Recommend clinical correlation. 6. Incidental/nonacute findings are listed in the report.
== END 2024-10-08 14:42 | disposition home or self-care (01) ==
LOC: RAD 14:42
PROVIDERS: Family Provider Registered Nurse; PCP Registered Nurse; Visit Provider Registered Nurse
DX: M51.369 Other intervertebral disc degeneration, lumbar region without mention of lumbar back pain or lower extremity pain (principal); W19.XXXA Unspecified fall, initial encounter; R93.7 Abnormal findings on diagnostic imaging of other parts of musculoskeletal system; M46.1 Sacroiliitis, not elsewhere classified; R93.5 Abnormal findings on diagnostic imaging of other abdominal regions, including retroperitoneum; I70.90 Unspecified atherosclerosis; M16.0 Bilateral primary osteoarthritis of hip; R93.89 Abnormal findings on diagnostic imaging of other specified body structures
CPT/HCPCS: 72100; 72220

== ENCOUNTER 2024-10-11 07:30 | Oncology outpatient (recurring) (ONCR) | payer MEDICARE, SELFPAY ==
[2024-10-11 08:04] LABS: Basophils # 0.1 10^3/uL (0.0-0.1); Basophils % 0.9 %; Eosinophils # 0.1 10^3/uL (0.0-0.8); Eosinophils % 0.8 %; Hematocrit 42.6 % (36-47); Lymphocytes # 1.1 10^3/uL (0.8-4.8); Lymphocytes % 14.4 %; Mean Corpuscular HGB Conc 32.4 g/dL (30-55); Mean Corpuscular Volume 89.5 fl (85-98); Mean Platelet Volume 10.5 fL (7.4-10.4); Monocytes # 0.7 10^3/uL (0.2-0.9); Monocytes % 8.6 %; Neutrophils # 5.49 10^3/uL (1.8-7.7); Neutrophils % 72.4 %; Nucleated Red Blood Cells % 0 %; Platelet Count 172 10^3/cmm (157-399); Red Blood Count 4.76 10^6/uL (3.85-5.65); Red Cell Distribution Width 14.7 % (12.1-15.1); White Blood Count 7.58 10^3/uL (3.29-11.43)
[2024-10-11 08:21] LABS: Alanine Aminotransferase 30 U/L (0-33); Albumin Level 3.9 g/dL (3.5-5.2); Alkaline Phosphatase 48 U/L (35-105); Anion Gap 17.4 (5-19); Aspartate Amino Transferase 13 U/L (0-32); Blood Urea Nitrogen 19 mg/dL (8-23); Calcium 9.4 mg/dL (8.5-10.5); Carbon Dioxide 23 mmol/L (22-29); Chloride 99 mmol/L (98-107); Globulin 2.5 g/dL (1.3-4.6); Glucose 139 mg/dL (65-115); Osmolality Calculated 285 mOsm/kg (285-295); Potassium 4.4 mmol/L (3.5-5.1); Sodium 135 mmol/L (136-145); Total Bilirubin 0.5 mg/dL (0.15-1.2); Total Protein 6.4 g/dL (6.6-8.7)
== END 2024-10-23 23:59 | disposition home or self-care (01) ==
PROVIDERS: Nurse Practitioner Family; Family Provider Registered Nurse; PCP Registered Nurse; Visit Provider Internal Medicine Medical Oncology
DX: Z08 Encounter for follow-up examination after completed treatment for malignant neoplasm (principal); Z85.118 Personal history of other malignant neoplasm of bronchus and lung; Z12.31 Encounter for screening mammogram for malignant neoplasm of breast; Z87.891 Personal history of nicotine dependence; Z79.899 Other long term (current) drug therapy
CPT/HCPCS: 36591; 80053; 85025; 99214

== ENCOUNTER → 2024-10-22 09:33 | Outpatient (BNVA) | payer MEDICARE, SELFPAY | PROVIDERS: Family Provider Registered Nurse; PCP Registered Nurse; Visit Provider Surgery | DX: K21.9 Gastro-esophageal reflux disease without esophagitis (principal) | CPT/HCPCS: 99214 ==

== ENCOUNTER 2024-10-24 05:00 | Outpatient (RCR) | payer MEDICARE, SELFPAY | END 2024-11-23 23:59 | disposition home or self-care (01) | LOC: WPT 05:00 | PROVIDERS: Family Provider Registered Nurse; PCP Registered Nurse; Visit Provider Nurse Practitioner Family | DX: C34.02 Malignant neoplasm of left main bronchus (principal) | CPT/HCPCS: 97110; 97112; 97163; 97530 ==

== ENCOUNTER 2024-11-06 06:42 | Day surgery (SDC) | payer MEDICARE, SELFPAY ==
[2024-11-06 07:17] VITALS: BP 125/81; PULSE 90; RESP 18; TEMP 36.1; O2SAT 97; BMI 45.9
--- NOTE | 2024-11-06 07:22 | ANES.PREANE2 ---
Pre-Anesthetic Assessment Height/Weight: Height 1.73 m Preop Diagnosis: GERD Operation Date: 11/06/24 09:00 Proposed Procedures p EGD 69810, K21.9(Not Applicable) - Royal Kerr MD Familial anesthetic complications: None Was Beta Radha taken within 24 hours: Yes Was Clonidine taken within 24 hours: N/A Social No alcohol and No tobacco Exam alert, oriented x 3, clear to auscultation bilaterally and regular rate & rhythm Airway Mallampati: Class III Pulmonary Chronic Obstructive Pulmonary Disease and Sleep Apnea Small cell lung CA CV/HEM Arrythmia (Afib), Coronary Artery Disease and Hypertension Aortic insufficiency. EF 55% last echo in 2022 CKD Hepatic Steatosis GI Gastroesophageal Reflux Disease Metabolic Diabetes Mellitus and Morbid Obesity [facility] None reported Neuropsych Neuropathy Anesthetic Plan ASA status: 3 Anesthesia: MAC Risk of > 500 ml blood loss (7ml/kg in children): No Medications/Allergies Home Medications ?Medication ?Instructions ?Recorded ?Confirmed ?Last Taken ?Type aspirin 81 mg tablet,delayed 81 mg PO QAM 06/21/19 10/30/24 10/29/24 History release Held on 06/06/24. Instructions: Resume on 06/09/24. Diabetic Shoes #1 ea 03/17/21 10/22/24 Unknown Rx blood sugar diagnostic #100 ea 01/03/22 10/22/24 Unknown Rx lancets (Accu-Chek Softclix #200 ea 01/03/22 10/22/24 Unknown Rx Lancets) nitroglycerin 0.4 mg sublingual 0.4 mg sublingual Q5M PRN chest 02/24/22 10/30/24 01/10/24 Rx tablet pain #25 tabs Diabetic Shoes and 3 inserts #1 ea 12/28/22 10/22/24 Unknown Rx pen needle, diabetic 32 gauge x #100 ea 05/16/23 10/22/24 Unknown Rx 5/16 (Comfort EZ Pen [place]) albuterol sulfate 90 mcg/actuation 2 puff inhalation Q6H PRN 05/17/23 10/30/24 10/28/24 History aerosol inhaler Shortness Of Breath PORTABLE OXYGEN CONCENTRATOR AND #1 ea 11/16/23 10/22/24 Unknown Rx SUPPLIES furosemide 20 mg tablet 20 mg PO DAILY 02/08/24 10/30/24 11/05/24 History CPAP (Auto-Titrating CPAP) #1 ea 02/12/24 10/22/24 Unknown Rx losartan 100 mg tablet 100 mg PO DAILY #90 tabs 02/15/24 10/30/24 11/05/24 Rx metoprolol tartrate 50 mg tablet 50 mg PO BID #180 tabs 03/19/24 10/30/24 11/06/24 Rx diabetic shoes with 3 inserts #1 ea 04/03/24 10/22/24 Unknown Rx amlodipine 10 mg tablet 10 mg PO DAILY 90 days #90 tabs 05/16/24 10/30/24 11/05/24 Rx Held on 10/18/24. Instructions: Doctor's Order talavera balance brace, right foot #1 ea 09/30/24 10/22/24 Unknown Rx electric powerchair #1 ea 10/04/24 10/22/24 Unknown Rx hydrocodone 5 mg-acetaminophen 325 1 tab PO Q8H PRN pain 5 days #15 10/07/24 10/30/24 10/27/24 Rx mg tablet tabs ondansetron HCl 8 mg tablet 8 mg PO Q8H PRN nausea and 10/11/24 10/30/24 10/29/24 Rx vomiting #30 tabs amiodarone 200 mg tablet 200 mg PO DAILY 10/30/24 10/30/24 11/06/24 History apixaban 5 mg tablet (Eliquis) 5 mg PO BID 10/30/24 10/30/24 10/30/24 History cholecalciferol (vitamin D3) 1,250 1,250 mcg PO DAILY 10/30/24 10/30/24 11/05/24 History mcg (50,000 unit) capsule duloxetine 20 mg capsule,delayed 20 mg PO DAILY 10/30/24 10/30/24 11/05/24 History release pantoprazole 40 mg tablet,delayed 40 mg PO DAILY 10/30/24 10/30/24 11/05/24 History release rosuvastatin 40 mg tablet 40 mg PO DAILY 10/30/24 10/30/24 11/05/24 History spironolactone 25 mg tablet 25 mg PO BID 10/30/24 10/30/24 11/05/24 History Allergies Allergy/AdvReac Type Severity Reaction Status Date / Time Sulfa (Sulfonamide Allergy Unknown Verified 10/30/24 08:38 Antibiotics) sulfamethoxazole (From Allergy itching Verified 10/30/24 08:38 Bactrim) trimethoprim (From Bactrim) Allergy itching Verified 10/30/24 08:38 [facility] Anesthesia Medical History Mixed connective tissue disease Small cell lung cancer Port-A-Cath in place Advanced directives, counseling/discussion Former heavy cigarette smoker (20-39 per day) Quit in 2009 Aortic insufficiency dx 10/14/02 Dr Kam Martinez Arthralgia of both knees Venous insufficiency of both lower extremities Opioid contract exists Personal history of nicotine dependence Quit 2010 History of prior cigarette smoking Obesity Hypothyroidism (acquired) Chronic joint pain Anxiety and depression Hyperlipidemia Common migraine with intractable migraine Left Achilles tendinitis Back pain, lumbosacral Type 2 diabetes mellitus Essential hypertension COPD (chronic obstructive pulmonary disease) Gastroesophageal reflux disease without esophagitis Surgical History Stented coronary artery 2 stents done 02/16/96 in [place] History of knee replacement 2010 History of delivery Family History Other CAD (coronary artery disease) Cancer Diabetes Denies family history of Rheumatoid arthritis Lupus Hyperlipidemia Chronic kidney disease (CKD) Hypertension Stroke Social History Smoking and tobacco/nicotine status: former use of tobacco/nicotine Quit status (tobacco/nicotine): has quit using Year quit tobacco: 2009 Former quit date comment: 3 ppd X 37 years Alcohol intake: never Substance/Drug Use: never Lives independently: No Household members: spouse Marital status: Current occupational status: unemployed Do you think of yourself as: Straight/Heterosexual Current gender identity: Female Data Anesthesia Cardiac Studies: Echocardiogram 09/01/22 Echocardiogram Ultrasound 11/18/20 Sestamibi Stress Test (Cardiology) 01/12/21 Cardiac Event Monitor 06/16/23
[2024-11-06] MEDS: sodium chloride 0.9% 1,000 ML 15 ML IV (07:33)
--- NOTE | 2024-11-06 07:43 | W.PM.OPSUD ---
Surgery/Procedure H&P Update DATE OF PROCEDURE: November 06, 2024 DATE H&P PERFORMED: 10/22/24 H&P UPDATE INFORMATION: I have reviewed H&P completed within last 30 days, I have examined patient prior to procedure, No changes to prior documentation, Changes to prior documentation as noted here and Risks and benefits of the procedure reviewed PREOP DIAGNOSIS: GERD PLANNED PROCEDURE: Operation Date: 11/06/24 09:00 Proposed Procedures p EGD 69965, K21.9(Not Applicable) - Royal Kerr MD
[2024-11-06 09:02] VITALS: BP 108/42; PULSE 58; RESP 18; TEMP 36.6; O2SAT 99
[2024-11-06 09:16] VITALS: BP 125/53; PULSE 59; RESP 18; O2SAT 98
[2024-11-06 09:27] VITALS: BP 100/51; PULSE 55; RESP 18; O2SAT 98
--- NOTE | 2024-11-06 09:45 | ANE.PACU2 ---
Inpatient post-anesthesia follow up: Airway intact: Yes Vital signs: Temperature 97.9 F Pulse Rate 55 Respiratory Rate 18 Blood Pressure 100/51 Pulse Oximetry 98 Oxygen Delivery Me thod Room Air Oxygen Flow Rate 10 Fraction of Inspir ed Oxygen Hydration adequate: Yes Nausea and vomiting: No Pain level: 1 Mental status: Baseline
== END 2024-11-06 09:46 | disposition home or self-care (01) ==
PROVIDERS: PCP Registered Nurse; Visit Provider Surgery
PROC: 0DJ08ZZ Inspection of Upper Intestinal Tract, Via Natural or Artificial Opening Endoscopic (ICD-10-PCS; principal; 2024-11-06 09:00)
DX: K29.00 Acute gastritis without bleeding (principal); K44.9 Diaphragmatic hernia without obstruction or gangrene; J44.9 Chronic obstructive pulmonary disease, unspecified; I25.10 Atherosclerotic heart disease of native coronary artery without angina pectoris; K21.9 Gastro-esophageal reflux disease without esophagitis; E11.22 Type 2 diabetes mellitus with diabetic chronic kidney disease; E03.9 Hypothyroidism, unspecified; E78.5 Hyperlipidemia, unspecified; N18.9 Chronic kidney disease, unspecified; D13.2 Benign neoplasm of duodenum; I12.9 Hypertensive chronic kidney disease with stage 1 through stage 4 chronic kidney disease, or unspecified chronic kidney disease; E66.01 Morbid (severe) obesity due to excess calories; Z68.42 Body mass index [BMI] 45.0-49.9, adult; Z79.82 Long term (current) use of aspirin; Z79.899 Other long term (current) drug therapy; Z79.01 Long term (current) use of anticoagulants; Z88.2 Allergy status to sulfonamides; Z85.118 Personal history of other malignant neoplasm of bronchus and lung; Z87.891 Personal history of nicotine dependence; Z95.5 Presence of coronary angioplasty implant and graft
CPT/HCPCS: 43239; 88305; J2704; J7030

== ENCOUNTER 2024-11-13 10:27 | Oncology outpatient (recurring) (ONCR) | payer MEDICARE, SELFPAY | END 2024-11-23 23:59 | disposition home or self-care (01) | PROVIDERS: PCP Registered Nurse; Visit Provider Internal Medicine Medical Oncology | DX: Z08 Encounter for follow-up examination after completed treatment for malignant neoplasm (principal); Z85.118 Personal history of other malignant neoplasm of bronchus and lung; Z12.31 Encounter for screening mammogram for malignant neoplasm of breast; Z87.891 Personal history of nicotine dependence; Z79.899 Other long term (current) drug therapy; Z51.0 Encounter for antineoplastic radiation therapy; C34.02 Malignant neoplasm of left main bronchus; Z53.9 Procedure and treatment not carried out, unspecified reason; Z45.2 Encounter for adjustment and management of vascular access device; Z95.828 Presence of other vascular implants and grafts; Z29.89 Encounter for other specified prophylactic measures | CPT/HCPCS: 96523 ==

== ENCOUNTER → 2024-11-20 08:47 | Outpatient (BNVA) | payer MEDICARE, SELFPAY | PROVIDERS: PCP Registered Nurse; Visit Provider Surgery | DX: Z09 Encounter for follow-up examination after completed treatment for conditions other than malignant neoplasm (principal); K31.7 Polyp of stomach and duodenum | CPT/HCPCS: 99213 ==

== ENCOUNTER 2024-11-24 05:00 | Outpatient (RCR) | payer MEDICARE, SELFPAY | END 2024-12-23 23:59 | disposition home or self-care (01) | LOC: WPT 05:00 | PROVIDERS: Family Provider Registered Nurse; PCP Registered Nurse; Visit Provider Nurse Practitioner Family | DX: R53.1 Weakness (principal); C34.02 Malignant neoplasm of left main bronchus | CPT/HCPCS: 97110; 97112; 97530 ==

== ENCOUNTER → 2024-11-26 14:51 | Outpatient (BNVA) | payer MEDICARE, SELFPAY | PROVIDERS: Family Provider Registered Nurse; PCP Registered Nurse; Visit Provider Internal Medicine | DX: I35.1 Nonrheumatic aortic (valve) insufficiency (principal); I87.2 Venous insufficiency (chronic) (peripheral); I25.10 Atherosclerotic heart disease of native coronary artery without angina pectoris; I10 Essential (primary) hypertension; I48.91 Unspecified atrial fibrillation; Z79.01 Long term (current) use of anticoagulants; Z79.82 Long term (current) use of aspirin; Z95.5 Presence of coronary angioplasty implant and graft; Z87.891 Personal history of nicotine dependence | CPT/HCPCS: 99214 ==

== ENCOUNTER → 2024-12-31 14:16 | Outpatient (BNVA) | payer MEDICARE, SELFPAY | PROVIDERS: Family Provider Registered Nurse; PCP Registered Nurse; Visit Provider Physician Assistant | DX: M75.42 Impingement syndrome of left shoulder (principal); M75.41 Impingement syndrome of right shoulder; Z71.89 Other specified counseling | CPT/HCPCS: 20610; 99213; J3301; J9999 ==

== ENCOUNTER 2025-01-01 12:02 | Outpatient (CLI) | payer MEDICARE, SELFPAY ==
--- NOTE | 2025-01-01 12:11 | XR_ITS ---
WS: [id number] Exam: XR hip LT 2-3V wo/w pel* [id number] Date/Time of Exam: 01/01/2025 12:28 PM Reason For Exam: M25.552 - Pain in left hip Comparison 10/08/2024. No fracture noted. Mild degenerative change. Normal soft tissues. XR/XR hip LT 2-3V wo/w pel* [id number] IMPRESSION: 1. Mild DJD.
== END 2025-01-01 12:03 | disposition home or self-care (01) ==
PROVIDERS: PCP Registered Nurse; Visit Provider Registered Nurse
DX: M16.12 Unilateral primary osteoarthritis, left hip (principal)
CPT/HCPCS: 73502

== ENCOUNTER 2025-01-08 09:50 | Oncology outpatient (recurring) (ONCR) | payer MEDICARE, SELFPAY ==
[2025-01-08 10:21] LABS: Hematocrit 44.0 % (36-47); Hemoglobin 14.50 g/dL (11.27-16.99); Mean Corpuscular HGB Conc 33.0 g/dL (30-55); Mean Corpuscular Hemoglobin 30.1 pg (27-33); Mean Corpuscular Volume 91.3 fl (85-98); Nucleated Red Blood Cells % 0 %; Platelet Count 191 10^3/cmm (157-399); Red Blood Count 4.82 10^6/uL (3.85-5.65); White Blood Count 16.87 10^3/uL (3.29-11.43)
[2025-01-08 10:31] LABS: Alanine Aminotransferase 12 U/L (0-33); Albumin Level 3.8 g/dL (3.5-5.2); Alkaline Phosphatase 46 U/L (35-105); Anion Gap 18.1 (5-19); Aspartate Amino Transferase 8 U/L (0-32); Blood Urea Nitrogen 56 mg/dL (8-23); Calcium 9.1 mg/dL (8.5-10.5); Carbon Dioxide 20 mmol/L (22-29); Chloride 102 mmol/L (98-107); Creatinine Clr Calc Pharmacy 44.5908; Globulin 2.5 g/dL (1.3-4.6); Glucose 117 mg/dL (65-115); Osmolality Calculated 297 mOsm/kg (285-295); Potassium 5.1 mmol/L (3.5-5.1); Sodium 135 mmol/L (136-145); Total Protein 6.3 g/dL (6.6-8.7)
== END 2025-01-23 23:59 | disposition home or self-care (01) ==
PROVIDERS: Nurse Practitioner Family; PCP Registered Nurse; Visit Provider Internal Medicine Medical Oncology
DX: Z08 Encounter for follow-up examination after completed treatment for malignant neoplasm (principal); Z85.118 Personal history of other malignant neoplasm of bronchus and lung; Z87.891 Personal history of nicotine dependence; Z95.828 Presence of other vascular implants and grafts; Z92.3 Personal history of irradiation; Z92.21 Personal history of antineoplastic chemotherapy
CPT/HCPCS: 36591; 80053; 85025; 99213

== ENCOUNTER → 2025-01-27 10:04 | Outpatient (BNVA) | payer MEDICARE, SELFPAY | PROVIDERS: PCP Registered Nurse; Visit Provider Podiatrist Foot & Ankle Surgery | DX: E11.40 Type 2 diabetes mellitus with diabetic neuropathy, unspecified (principal); L60.3 Nail dystrophy; I73.9 Peripheral vascular disease, unspecified; E11.8 Type 2 diabetes mellitus with unspecified complications | CPT/HCPCS: 11721 ==

== ENCOUNTER → 2025-02-10 10:20 | Outpatient (BNVA) | payer MEDICARE, SELFPAY | PROVIDERS: PCP Registered Nurse; Visit Provider Anesthesiology Pain Medicine | DX: M54.16 Radiculopathy, lumbar region (principal); M54.9 Dorsalgia, unspecified; Z87.891 Personal history of nicotine dependence | CPT/HCPCS: 99213 ==

== ENCOUNTER 2025-02-12 12:00 | Oncology outpatient (recurring) (ONCR) | payer MEDICARE, SELFPAY ==
[2025-02-12 12:40] LABS: Estmated Average Glucose 131; Hemoglobin A1C 6.2 % (4.0-6.0)
== END 2025-02-23 23:59 | disposition home or self-care (01) ==
PROVIDERS: PCP Registered Nurse; Visit Provider Internal Medicine Medical Oncology
DX: Z45.2 Encounter for adjustment and management of vascular access device (principal); Z95.828 Presence of other vascular implants and grafts; E11.9 Type 2 diabetes mellitus without complications
CPT/HCPCS: 36591; 83036; 96523

== ENCOUNTER 2025-02-26 09:02 | Outpatient (CLI) | payer MEDICARE, SELFPAY ==
--- NOTE | 2025-02-26 09:30 | MR_ITS ---
WS: [id number] MRI LUMBAR SPINE NONCONTRAST TECHNIQUE: Sagittal T1, T2 and STIR imaging. Axial T1 and T2 imaging. CLINICAL INFORMATION: M54.16 - Radiculopathy, lumbar region COMPARISON: MRI 09/27/2019 FINDINGS: Some image degraded by patient motion. Counting performed from the craniocervical junction demonstrates 11 thoracic type vertebral bodies and 5 nonrib-bearing lumbar vertebral bodies considered L1-L5 for the purposes of this dictation. This is in keeping with the prior numbering convention from the prior MRI in 2019 T12-L1: Shallow central protrusion. Mild facet arthropathy. L1-L2: Mild annular bulging. Mild facet arthropathy. Mild RIGHT foraminal narrowing. L2-L3: Mild annular bulging. Narrowing of the LEFT subarticular recess. Mild facet arthropathy. Foramen are patent. L3-L4: Mild annular bulging with mild to moderate central canal stenosis. Impingement subarticular recess bilaterally. RIGHT foraminal protrusion impinges the exiting RIGHT L3 nerve root. LEFT foramen is patent. Moderate facet arthropathy. L4-L5: Mild annular bulging. Slight narrowing of the subarticular recess bilaterally. Moderate facet arthropathy. Mild LEFT foraminal narrowing. L5-S1: Mild disc bulging. Advanced facet arthropathy with ligamentum flavum hypertrophy. Mild LEFT greater than RIGHT foraminal narrowing. Visualized pelvic bony structures: Normal. Paravertebral soft tissues: Normal. MR/MR lumbar spine wo con* [id number] IMPRESSION: Counting performed from the craniocervical junction demonstrates 11 thoracic ty pe vertebral bodies and 5 nonrib-bearing lumbar vertebral bodies considered L1- L5 for the purposes of this dictation. This is in keeping with the prior number ing convention from the prior MRI in 2019 1. Mild to moderate central canal stenosis L3-4 with impingement on the subart icular recess bilaterally similar to previous. 2. RIGHT foraminal protrusion L3-4 impinges the exiting RIGHT L3 nerve root wi th mild to moderate RIGHT foraminal narrowing similar to previous. 3. Annular bulging L4-5 with slight narrowing of the subarticular recess. 4. Small bilateral foraminal protrusions L5-S1 with mild LEFT greater than RIG HT foraminal narrowing. 5. Advanced arthropathy L5-S1. 6. Annular bulging L2-3 with narrowing of the LEFT subarticular recess.
== END 2025-02-26 09:03 | disposition home or self-care (01) ==
PROVIDERS: PCP Registered Nurse; Visit Provider Anesthesiology Pain Medicine
DX: M51.16 Intervertebral disc disorders with radiculopathy, lumbar region (principal); M48.061 Spinal stenosis, lumbar region without neurogenic claudication; M47.817 Spondylosis without myelopathy or radiculopathy, lumbosacral region
CPT/HCPCS: 72148

== ENCOUNTER → 2025-03-17 09:56 | Outpatient (BNVA) | payer MEDICARE, SELFPAY | PROVIDERS: PCP Registered Nurse; Visit Provider Anesthesiology Pain Medicine | DX: M51.16 Intervertebral disc disorders with radiculopathy, lumbar region (principal) | CPT/HCPCS: 99214 ==

== ENCOUNTER 2025-03-19 10:46 | Oncology outpatient (recurring) (ONCR) | payer MEDICARE, SELFPAY | END 2025-03-25 23:59 | disposition home or self-care (01) | PROVIDERS: PCP Registered Nurse; Visit Provider Internal Medicine Medical Oncology | DX: Z45.2 Encounter for adjustment and management of vascular access device (principal); Z95.828 Presence of other vascular implants and grafts | CPT/HCPCS: 96523 ==

== ENCOUNTER → 2025-04-08 14:15 | Outpatient (BNVA) | payer MEDICARE, SELFPAY | PROVIDERS: PCP Registered Nurse; Visit Provider Physician Assistant | DX: M75.42 Impingement syndrome of left shoulder (principal); M75.41 Impingement syndrome of right shoulder; Z71.89 Other specified counseling | CPT/HCPCS: 20610; 73030; 99213; J3301; J9999 ==

== ENCOUNTER 2025-04-16 12:00 | Oncology outpatient (recurring) (ONCR) | payer MEDICARE, SELFPAY ==
[2025-04-09] MEDS: iohexol 350 mg/mL 500 mL Btl (per mL) PO (10:29)
[2025-04-09 11:10] LABS: Blood Urea Nitrogen 35 mg/dL (8-23)
--- NOTE | 2025-04-09 12:00 | CT_ITS ---
WS: [id number] CT CHEST, ABDOMEN AND PELVIS NONCONTRAST HISTORY: comparison and pulmonary nodule monitoring TECHNIQUE: Contiguous 5 mm axial imaging performed through the chest, abdomen and pelvis without IV contrast, oral contrast has been provided. Coronal and sagittal reformats chest. Coronal and sagittal reformats through the abdomen and pelvis. All CT scans at [facility] use at least one of these dose optimization techniques: automated exposure control; mA and/or kV adjustment per patient size (includes targeted exams where dose is matched to clinical indication); or iterative reconstruction. CONTRAST: None DLP: 1693.85 mGy.cm COMPARISON: PET/CT 09/13/2024, CT chest abdomen and pelvis 07/10/2024 and 04/03/[address]: Mild volume loss in the LEFT thorax due to posttreatment changes of radiation of the LEFT upper lobe neoplasm. Post treatment areas of fibrosis and scarring and volume loss centered at the LEFT hilum. Changes extend into the central upper and lower lobes. As compared to prior study there has been no obvious progression taking into consideration this study is performed without IV contrast. No new mass or pulmonary nodule. Mild atherosclerosis aorta. Mildly dilated pulmonary artery. Heart size is normal. No mediastinal or hilar adenopathy. Subcentimeter LEFT thyroid nodule. Abdomen CT: Hepatic and splenic granulomata. No liver lesions identified on this unenhanced exam. Gallbladder and adrenal glands are negative. Negative pancreas. Mild renal atrophy with no obstruction. Stable LEFT renal calcification. Moderate atherosclerosis aorta. No aneurysm. No GI tract obstruction or colitis. Normal appendix. Mild diverticular burden in the sigmoid colon. No acute diverticulitis. No mesenteric or retroperitoneal adenopathy. Small fat-containing umbilical hernia. Pelvic CT: No free fluid or adenopathy in the pelvis. Urinary bladder is normally distended. Enlarged lobulated uterus from fibroids. Increase in the lumbar lordosis. Multiple Schmorl's nodes are noted in the thoracic and lumbar spines. No destructive bone lesions. CT/[place] [id number] IMPRESSION: 1. Stable posttreatment areas of fibrosis and volume loss centered at the LEFT hilum and extending into the central upper and lower lobes. No recurrent mass identified on this unenhanced exam. 2. No mediastinal or hilar adenopathy. 3. No metastatic disease to notified in the liver or adrenal glands on this un enhanced exam. 4. Sigmoid diverticulosis without acute diverticulitis. 5. Fibroid uterus.
[2025-04-16 12:22] LABS: Hematocrit 42.6 % (36-47); Hemoglobin 13.80 g/dL (11.27-16.99); Mean Corpuscular HGB Conc 32.4 g/dL (30-55); Mean Corpuscular Hemoglobin 29.7 pg (27-33); Mean Corpuscular Volume 91.8 fl (85-98); Nucleated Red Blood Cells % 0 %; Platelet Count 158 10^3/cmm (157-399); Red Blood Count 4.64 10^6/uL (3.85-5.65); White Blood Count 14.34 10^3/uL (3.29-11.43)
[2025-04-16 12:40] LABS: Alanine Aminotransferase 13 U/L (0-33); Albumin Level 3.7 g/dL (3.5-5.2); Alkaline Phosphatase 46 U/L (35-105); Anion Gap 17.8 (5-19); Aspartate Amino Transferase 8 U/L (0-32); Blood Urea Nitrogen 41 mg/dL (8-23); Calcium 8.7 mg/dL (8.5-10.5); Carbon Dioxide 22 mmol/L (22-29); Chloride 101 mmol/L (98-107); Globulin 2.0 g/dL (1.3-4.6); Glucose 159 mg/dL (65-115); Osmolality Calculated 295 mOsm/kg (285-295); Potassium 4.8 mmol/L (3.5-5.1); Sodium 136 mmol/L (136-145); Total Protein 5.7 g/dL (6.6-8.7)
== END 2025-04-25 23:59 | disposition home or self-care (01) ==
PROVIDERS: Internal Medicine; Internal Medicine Medical Oncology; PCP Registered Nurse; Visit Provider Nurse Practitioner
DX: Z08 Encounter for follow-up examination after completed treatment for malignant neoplasm; Z85.118 Personal history of other malignant neoplasm of bronchus and lung; J84.10 Pulmonary fibrosis, unspecified; K57.30 Diverticulosis of large intestine without perforation or abscess without bleeding; D25.9 Leiomyoma of uterus, unspecified; Z92.3 Personal history of irradiation; Z92.21 Personal history of antineoplastic chemotherapy; Z95.828 Presence of other vascular implants and grafts; Z87.891 Personal history of nicotine dependence; Z91.81 History of falling; Z53.9 Procedure and treatment not carried out, unspecified reason
CPT/HCPCS: 36591; 71250; 74176; 80053; 82565; 83615; 84520; 85025; 99213

== ENCOUNTER 2025-04-28 10:35 | Inpatient (IN) | payer MEDICARE, SELFPAY ==
[2025-04-28] VITALS (46 sets, daily range): BP systolic 104–167; BP diastolic 31–98; PULSE 36–78; RESP 8–22; TEMP 36.6–36.8; O2SAT 92–100; BMI 45.0
--- OUTSIDE RECORDS SUMMARY | 2025-04-28 10:48 | XMS_ITS | Encounter Summary ---
Author Organization [facility] Address [address] Attn: Epic Prelude ADT LORI STOVALL [id number] Care Team Providers Care Microbiology Quality Control Technician Name Role Phone Teresa Clifford Primary Care Provider Encounter Details Date Type Department Care Team (Latest Contact Info) Description 04/07/1992 Emergency Andrews Honeycutt MD [facility] [place] [address] Social History Tobacco Use Types Packs/Day Years Used Date Smoking Tobacco: Never Assessed Comments Unknown Sex and Gender Information Value Date Recorded Sex Assigned at Not on file 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
--- OUTSIDE RECORDS SUMMARY | 2025-04-28 10:48 | XMS_ITS | Clinical Summary ---
Author Organization [facility] Address [address] [facility] Attn: Epic Prelude ADT LORI STOVALL [address] Care Team Providers Care Ecommerce Marketing Specialist Name Role Phone Venessa Teresa WHEATLEY Primary Care Provider Allergies No known active allergies Medications Eliquis 5 mg tablet Take 1 Tablet by mouth 2 times daily. 5 Active furosemide (LASIX) 20 mg tablet Take 1 Tablet by mouth daily. 5 Active rosuvastatin (CRESTOR) 40 mg tablet Take 40 mg by mouth daily at bedtime. Active pantoprazole (PROTONIX) 40 mg Tablet, Delayed Release (E.C.) Take 40 mg by mouth daily. Active losartan (COZAAR) 100 mg tablet Take 100 mg by mouth daily. Active cholecalciferol 1,250 mcg (50,000 unit) Capsule Take by mouth every 7 days. Active citalopram (CeleXA) 10 mg tablet Take 10 mg by mouth daily. HS Active potassium CHLORIDE (K-DUR,KLOR-CON M20) 20 mEq Extended Release tablet Take 20 mEq by mouth daily. Active metoprolol tartrate (LOPRESSOR) 50 mg tablet Take 50 mg by mouth 2 times daily. Active amiodarone (CORDARONE) 200 mg tablet Take 200 mg by mouth daily. Active spironolactone (ALDACTONE) 25 mg tablet Take 25 mg by mouth 2 times daily. Active aspirin (ECOTRIN EC) 81 mg Tablet, Delayed Release (E.C.) Take 81 mg by mouth daily. Active Biotin 10,000 mcg Capsule Take by mouth daily. Active simethicone 125 mg Tablet, Chewable Dispense (3) 125 mg Simethicone chewable tablets with prep as directed. 3 Tablet Active Encounters Date Type Department Care Team Description 04/23/2025 External Device Data STL ABSTRACTION Provider, Abstract 04/23/2025 External Device Data STL ABSTRACTION Provider, Abstract 04/16/2025 External Device Data ST[facility] ABSTRACTION Provider, Abstract 04/15/2025 External Device Data STL ABSTRACTION Provider, Abstract 03/25/2025 Results Follow-Up [facility] [place] [address] [place] [phone] Danielle Pandey DO PATHOLOGY 03/20/2025 2:19 PM CDT Anesthesia Event [facility] [address] [place] [phone] Nadeem Peralta MD Le, Max Perse, AA 03/20/2025 1:20 PM CDT - 03/20/2025 1:40 PM CDT Surgery [facility] [address] [place] [phone] Danielle Pandey DO ESOPHAGOGASTRODUODENOSCOPY 03/20/2025 11:21 AM CDT - 03/20/2025 3:36 PM CDT Hospital Encounter [facility] [address] [place] [phone] Danielle Pandey DO Discharge Disposition: Home or Self Care 03/18/2025 External Device Data STL ABSTRACTION Provider, Abstract 03/18/2025 External Device Data STL ABSTRACTION Provider, Abstract 2025 External Device Data STL ABSTRACTION Provider, Abstract 01/29/2025 External Device Data ST[facility] ABSTRACTION Provider, Abstract from Last 3 Months Social History Tobacco Use Types Packs/Day Years Used Date Smoking Tobacco: Former Cigarettes Smokeless Tobacco: Never Tobacco Cessation:Counseling Given: Not Answered Alcohol Use Standard Drinks/Week Comments Not Currently 0 (1 standard drink = 0.6 oz pur e alcohol) Feeling Safe Answer Date Recorded Are you in a relationship wi th someone who hurts you emotionally and/or physically? 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 Gender Identity Not on file Sexual Orientation Not on file Last Filed Vital Signs Vital Sign Reading Time Taken Comments Blood Pressure 119/55 03/20/2025 3:27 PM CDT Pulse 50 03/20/2025 3:27 PM CDT Temperature 36.3 C (97.3 F) 03/20/2025 1:13 PM CDT Respiratory Rate 11 03/20/2025 3:27 PM CDT Oxygen Saturation 99% 03/20/2025 3:27 PM CDT Inhaled Oxygen Concentration - - Weight 132.5 kg (292 lb) 02/28/2025 6:40 PM CDT Height 172.7 cm (5' 8 ) 02/28/2025 6:40 PM CDT Body Mass Index 44.4 02/28/2025 6:40 PM CDT Plan of Treatment Health Maintenance Due Date Last Done Comments DIABETES ANNUAL FOOT EXAM 1975 DIABETES HBA1C Q 6 MONTHS 1975 DIABETES MICROALBUMIN ANNUAL SCREEN 1975 LDL CHOLESTEROL ANNUAL 1975 DTAP/TDAP/TD VACCINES (1 - Tdap) 1976 PNEUMOCOCCAL VACCINE 50+ YEA RS (1 of 2 - PCV) 1976 BREAST CANCER SCREENING 1997 COLORECTAL SCREENING 2002 Colorectal Cancer Screening 2002 FIT-DNA Q 3 years 2002 FIT/FOBT Q 1 year 2002 Flex Sig/CT Colonography Q 5 years 2002 RSV VACCINE (60+ or ) (1 - Risk 50-74 years 1-dose series) 2007 ZOSTER VACCINE (1 of 2) 2007 DIABETES ANNUAL RETINAL EXAM 09/08/2021 09/08/2020, 09/08/2020 OSTEOPOROSIS SCREENING 2022 INFLUENZA VACCINE (#1) 2025 COVID-19 Vaccine (3 - season) 2025, 10/22/2020 Procedures Procedure Name Priority Date/Time Associated Diagnosis Comments UPPER ENDOSCOPY REPORT 3:25 PM CDT PATHOLOGY Pathology 03/20/2025 2:28 PM CDT RI ESOPHAGOGASTRODUODENOSCOP Y TRANSORAL DIAGNOSTIC 03/20/2025 1:20 PM CDT Polyp of stomach and duodenum Benign polyp of duodenum Case Notes Pt req in afternoon/ [address] in Procedure :DBL Special Notes: pos 2 day prep Dx: Polyp of stomach and duodenum Benign polyp of duodenum BT:Eliquis (apoxaban) 2 days BT managed by: Diabetic: YES Diabetic/WT med:NONE LOC & REASON:[id number] BMI: 45.5 Last Procedure date & location egd 11/06/24 [facility] Referring Provider MARIVEL WATERMAN GI Doc:Any Insurance: anthem Last GI appt colon 06/06/24 [facility] DIABETES EYE EXAM 09/08/2020 12:00 AM CDT from Last 3 Months or Most Recently Relevant to Health Maintenance Results * UPPER ENDOSCOPY REPORT (03/20/2025 3:25 PM CDT) Narrative Procedure Note Danielle Pandey DO - 03/20/2025 3:25 PM CDT [facility] GI Patient Name: Janet Pillai Procedure Date: 03/20/2025 Date of : 1955 Admit Type: Outpatient Age: 70 Attending MD: Danielle Conte DO, Procedure: Upper GI endoscopy Indications: duodenal tubular adenomas Providers: Danielle Conte DO Referring MD: Medicines: Propofol per Anesthesia Complications: No immediate complications. Procedure: Pre-Anesthesia Assessment: - Prior to the procedure, a History and Physical was performed, and patient medications and allergies were reviewed. The patient's tolerance of previous anesthesia was also reviewed. The risks and benefits of the procedure and the sedation options and risks were discussed with the patient. All questions were answered, and informed consent was obtained. Prior Anticoagulants: The patient has taken no anticoagulant or antiplatelet agents. ASA Grade Assessment: III - A patient with severe systemic disease. After reviewing the risks and benefits, the patient was deemed in satisfactory condition to undergo the procedure. After obtaining informed consent, the endoscope was passed under direct vision. Throughout the procedure, the patient's blood pressure, pulse, and oxygen saturations were monitored continuously. The Endoscope was introduced through the mouth, and advanced to the second part of duodenum. The upper GI endoscopy was accomplished without difficulty. The patient tolerated the procedure well. Estimated Blood Loss: Estimated blood loss was minimal. Findings: Esophagus was normal with Z line at 38cma and 2 cm hiatal hernia extending to 40cm, (Hill grade 3). Normal gastric mucosa. Three olyps in the duodenal bulb and into the sweep. 2 of them measured about 8 mm and were resected with cold snare polypectomy after the tissue was lifted with ever lift. Resection appeared to be complete. A clear distal Was used to assist with visualization of residual polyp that was in the proximal bulb just distal to the pylorus. This lesion was raised/semipedunculated with central umbilication and over 10 mm and therefore this was not resected but instead an Endoloop was placed in left in place until the polypoid falls off. Impression: - Small hiatal hernia - Duodenal polyps s/p EMR - Duodenal polyp s/p loop and leave technique Recommendation: EGD in 6 months Await path Danielle Conte DO 03/20/2025 3:25:20 PM This report has been signed electronically. Number of Addenda: 0 Note Initiated On: 03/20/2025 2:17 PM Scope Withdrawal Time Scope In: Scope Out: Patient Profile: This is a 70 year old female. [facility] [place], [place] Danielle Conte DO GI PROCEDURE ORDERABLE S Final Result * PATHOLOGY (03/20/2025 2:28 PM CDT) CASE REPORT Surgical Pathology Report Case: [id number] Authorizing Provider: Danielle Pandey, Collected: 03/20/2025 02:28 PM DO Ordering Location: [facility] Received: 03/21/2025 07:05 AM Endoscopy Pathologist: Ean Davis MD Specimen: Small Intestine, [facility]od[facility] A. Small intestine, duodenum, polyps - adenomatous polyp - no high grade dysplasia or malignancy identified. REV:CMM Ean Davis MD [id number] 5 11:34 AM CDT [facility] at 1134 CDT GROSS DESCRIPTION A. Received in formalin labeled Pillai -duodenum polyps are multiple fragments of tissue, 2.0 x 1.5 x 0.2 cm in aggregate. The specimen is submitted in toto in A1. Grossed by: Hilary Taveras MS, RICHARD ([facility]) 5 11:34 AM CDT [facility] OPERATIVE PROCEDURE 1: ESOPHAGOGASTRODUODENOSCO PY 5 11:34 AM CDT [facility] CLINICAL INFORMATION Polyp of stomach and duodenum Benign polyp of duodenum 11:34 AM T [facility] COMMENT The [employer] voice-activated dictation system may have been used in the creation of this report. Inherent to this system is the possibility of errors in syntax, grammar, punctuation, or other areas that could impact interpretation. If there are interpretive questions about the report, please contact the performing pathologist. Unless gross only is specified in the diagnosis, the microscopic examination substantiates the above cited diagnosis. The performance characteristics of all immunohistochemical stains cited in this report (if any) were determined by the Diagnostic Immunohistochemistry Laboratory of [facility] in compliance with CLIA'88 regulations. Some of these tests rely on the use of analyte specific reagents and are subject to specific labeling requirements by the FDA. All controls show appropriate reactivity. This testing was developed by the Diagnostic [facility]ohist[facility] Laboratory of [facility]. It has not been cleared or approved by the FDA. The FDA has determined that such clearance or approval is not necessary. 5 11:34 AM CDT [facility] Tissue (Small Intestine) Collection / Unknown 03/20/2025 2:28 PM CDT 03/21/2025 7:05 AM CDT Comment:Verified by marie / Teresa Toussaint FNP Danielle Thrasher Conte DO PATHOLOGY/CYTOLOGY ORD ERABLES Final Result [facility] # [id number] [address] [facility] [place] [address] * DIABETES EYE EXAM (09/08/2020 12:00 AM CDT) Sgf Scanning HEALTH MAINTENANCE Final Result from Last 3 Months or Most Recently Relevant to Health Maintenance [place] [address] [address] [place] [id number] BCBS MEDICARE HMO Advance Directives For more information, please contact: [phone] * Full Code (Latest Code Status on File) Date Activated Date Inactivated Comments 03/20/2025 12:13 PM 03/20/2025 5:36 PM Care Teams Ecommerce Marketing Specialist Relationship Specialty Start Date End Date Teresa Clifford FNP [address] [place] [address] PCP - General NURSE PRACTITIONER 06/02/17
--- OUTSIDE RECORDS SUMMARY | 2025-04-28 10:48 | XMS_ITS | Encounter Summary ---
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
--- OUTSIDE RECORDS SUMMARY | 2025-04-28 10:48 | XMS_ITS | Encounter Summary ---
Author Organization [facility] Address [address] [place] [address] Care Team Providers Care White Hat Hacker Name Role Phone Teresa Clifford Primary Care Provider [phone] Encounter Details Date Type Department Care Team (Late st Contact Info) Description 06/02/2017 Ancillary Orders [facility] Admitting [address] [place] [address] Teresa Clifford FNP [address] [place] [phone] Right wrist pain Social History Tobacco Use Types Packs/Day Years Used Date Smoking Tobacco: Never Assessed Comments Unknown Sex and Gender Information Value Date Recorded Sex Assigned at Not on file Legal Sex Female 10:11 AM PRINTING AGENT Gender Identity Not on file Sexual Orientation Not on file documented as of this encounter Plan of Treatment Not on file documented as of this encounter Results * XR WRIST 3+ VW RIGHT (06/02/2017 12:25 PM PRINTING AGENT) Anatomical Region Laterality Modality Wrist / Hand Computed Radiogr aphy 06/02/2017 12:2 6 PM PRINTING AGENT Impressions 06/02/2017 12:51 PM PRINTING AGENT IMPRESSION: Please see below. Exam: XR WRIST 3+ VW RIGHT Date/Time of Exam: 06/02/2017 12:25 PM Reason For Exam: Right wrist pain. Comparison: None. FINDINGS: PA, lateral and oblique projections are unremarkable. Narrative Procedure Note Rafa iLno, DO - 06/02/2017 IMPRESSION: Please see below. Exam: XR WRIST 3+ VW RIGHT Date/Time of Exam: 06/02/2017 12:25 PM Reason For Exam: Right wrist pain. Comparison: None. FINDINGS: PA, lateral and oblique projections are unremarkable. us Teresa WHEATLEY DIAGNOSTIC IMAGING ORDERABL ES Final Result documented in this encounter Visit Diagnoses Diagnosis Right wrist pain Pain in joint, forearm Right wrist pain Pain in joint, forearm documented in this encounter Care Teams White Hat Hacker Relationship Specialty Start Date End Date Tersea Clifford FNP [address] [place] [address] PCP - General NURSE PRACTITIONER 06/02/17 documented as of this encounter
--- OUTSIDE RECORDS SUMMARY | 2025-04-28 10:48 | XMS_ITS | Encounter Summary ---
Author Organization [email or web address] Address [address] [place] [address] Phone Care Team Providers Care Pastoral Counselor Name Role Phone Unavailable Primary Care Provider Unavailabl e Encounter Details Date Type Department Care Team (Late st Contact Info) Description 04/23/2025 Telephone [facility] [address] [place] [address] Toro Silverio MD [address] [place] [address] Social History Tobacco Use Types Packs/Day Years Used Date Smoking Tobacco: Never Assessed Comments Unknown Sex and Gender Information Value Date Recorded Sex Assigned at Not on file Legal Sex Female 12:23 PM EDT Gender Identity Not on file Sexual Orientation Not on file documented as of this encounter Miscellaneous Notes * Telephone Encounter - Nora Campbell - 04/23/2025 11:45 AM CDT Referral received: 04/23/25 Referring Provider: Teresa Clifford Referral Diagnosis: Chronic Kidney Disease Preferred Location: [place] GFR trend: 23.4 04/16 16.8 04/09 28.1 01/08 Comments: Referral Scanned to Media. ROUTINE OR URGENT IF urgent first available Urgent/Staffing is 06/05-06/06 documented in this encounter Plan of Treatment Not on file documented as of this encounter Visit Diagnoses Not on filedocumented in this encounter
--- OUTSIDE RECORDS SUMMARY | 2025-04-28 10:48 | XMS_ITS | Encounter Summary ---
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
--- OUTSIDE RECORDS SUMMARY | 2025-04-28 10:48 | XMS_ITS | Encounter Summary ---
Author Organization [facility] Address [address] [place] [address] Care Team Providers Care Occ Therapy Asst Name Role Phone Teresa Clifford Primary Care Provider [phone] Encounter Details Date Type Department Care Team (Late st Contact Info) Description 04/23/2025 External Device Data STL ABSTRACTION Provider, Abstract NO ADDRESS ON FILE Social History Tobacco Use Types Packs/Day Years Used Date Smoking Tobacco: Former Cigarettes Smokeless Tobacco: Never Alcohol Use Standard Drinks/Week Comments Not Currently 0 (1 standard drink = 0.6 oz pur e alcohol) Feeling Safe Answer Date Recorded Are you in a relationship wi th someone who hurts you emotionally and/or physically? No 03/20/2025 Comments Unknown Sex and Gender Information Value Date Recorded Sex Assigned at Not on file Legal Sex Female 12:04 PM BID MANAGER Gender Identity Not on file Sexual Orientation Not on file documented as of this encounter Plan of Treatment Not on file documented as of this encounter Visit Diagnoses Not on filedocumented in this encounter Care Teams Occ Therapy Asst Relationship Specialty Start Date End Date Teresa Clifford FNP [address] [place] [address] PCP - General NURSE PRACTITIONER 06/02/17 documented as of this encounter
--- OUTSIDE RECORDS SUMMARY | 2025-04-28 10:48 | XMS_ITS | Encounter Summary ---
Author Organization [facility] Address [address] [place] [address] Care Team Providers Care Recreational Vehicle Repairer Name Role Phone Teresa Clifford Primary Care Provider [phone] Encounter Details Date Type Department Care Team [...] on file Legal Sex Female 12:04 PM ORACLE FINANCIALS CONSULTANT Gender Identity Not on file Sexual Orientation Not on file documented as of this encounter Plan of Treatment Not on file documented as of this encounter Visit Diagnoses Not on filedocumented in this encounter Care Teams Recreational Vehicle Repairer Relationship Specialty Start Date End Date Teresa Clifford FNP [address] [place] [address] PCP - General NURSE PRACTITIONER 06/02/17 documented as of this encounter
--- OUTSIDE RECORDS SUMMARY | 2025-04-28 10:48 | XMS_ITS | Encounter Summary ---
Author Organization [facility] Address [address] [facility] Attn: Epic Prelude ADT LORI STOVALL [address] Care Team Providers Care Farm Implement Mechanic Name Role Phone Teresa Clifford Primary Care Provider Encounter Details Date Type Department Care Team (Late st Contact Info) Description 04/28/1992 Outpatient Historical Candido Marlow MD [address] [place] [address] Social History Tobacco Use Types Packs/Day Years Used Date Smoking Tobacco: Never Assessed Comments Unknown Sex and Gender Information Value Date Recorded Sex Assigned at Not on file Legal Sex Female 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
--- OUTSIDE RECORDS SUMMARY | 2025-04-28 10:48 | XMS_ITS | Encounter Summary ---
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
--- OUTSIDE RECORDS SUMMARY | 2025-04-28 10:48 | XMS_ITS | Encounter Summary ---
Author Organization [facility] Address [address] [facility] Attn: Epic Prelude ADT LORI STOVALL [address] Care Team Providers Care Raiser Helper Name Role Phone Teresa Clifford Primary Care Provider Encounter Details Date Type Department Care Team (Latest Contact Info) Description 04/03/1992 Emergency Andrews Honeycutt MD [facility] [place] [address] Social History Tobacco Use Types Packs/Day Years Used Date Smoking Tobacco: Never Assessed Comments Unknown Sex and Gender Information Value Date Recorded Sex Assigned at Not on file Legal Sex Female 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
--- OUTSIDE RECORDS SUMMARY | 2025-04-28 10:48 | XMS_ITS | Clinical Summary ---
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 Gender Identity Not on file Sexual Orientation Not on file Plan of Treatment Health Maintenance Due Date Last Done Comments DTAP/TDAP/TD VACCINES (1 - Tdap) 1976 BREAST CANCER SCREENING 1997 COLORECTAL SCREENING 2002 Colorectal Cancer Screening 2002 FIT-DNA Q 3 years 2002 FIT/FOBT Q 1 year 2002 Flex Sig/CT Colonography Q 5 years 2002 PNEUMOCOCCAL VACCINE 50+ YEARS (1 of 1 - PCV) 03/04/20 07 ZOSTER VACCINE (1 of 2) 2007 OSTEOPOROSIS SCREENING 2022 INFLUENZA VACCINE (#1) 2025 RSV VACCINE (60+ or ) (1 - 1-dose 75+ series) 2032 Insurance MEDICARE PART A AND B Care Teams Wood Technologist Relationship Specialty Start Date End Date Teresa Clifford FNP [address] [place] [address] PCP - General NURSE PRACTITIONER 06/02/17
--- OUTSIDE RECORDS SUMMARY | 2025-04-28 10:48 | XMS_ITS | Clinical Summary ---
Author Organization [facility] Address [address] [place] [address] Phone Care Team Providers Care Brim Stretcher Name Role Phone Unavailable Primary Care Provider Unavailabl e Encounters Date Type Department Care Team Description 04/23/2025 Telephone [facility] [address] [place] [address] Toro Silverio MD 04/23/2025 Transcribe Orders [facility] [address] [place] [address] Teresa Clifford NP Chronic kidney disease, Stage IV (severe) (HCC) (Primary Dx) from Last 3 Months Social History Tobacco Use Types Packs/Day Years Used Date Smoking Tobacco: Never Assessed Comments Unknown Sex and Gender Information Value Date Recorded Sex Assigned at Not on file Legal Sex Female 12:23 PM EDT Gender Identity Not on file Sexual Orientation Not on file Plan of Treatment Health Maintenance Due Date Last Done Comments Breast Cancer Screening 1955 Colorectal Cancer Screening: Annual FOBT 2006 Colorectal Cancer Screening: Colonoscopy 2006 Colorectal Cancer Screening: Sigmoidoscopy 2006 Hepatitis B Vaccine (1 of 3 - Risk 3-dose series) 2017 Pneumococcal Vaccine: 50+ Ye ars (2 of 2 - PCV) 02/16/2022 02/16/2021 Influenza Vaccine (#1) 2025 05/16/2024, 2018 Diabetes: Hemoglobin A1C 04/23/2025 Diabetes: Ophthalmology Exam 04/23/2025 Diabetes: Pedal Pulse Checked 04/23/2025 Diabetes: Sensory Foot Exam 04/23/2025 Diabetes: Visual Foot Exam 04/23/2025 Insurance [facility] [place] MCR Adv ([id number])
--- OUTSIDE RECORDS SUMMARY | 2025-04-28 10:48 | XMS_ITS | Encounter Summary ---
Author Organization [facility] Address [address] [facility] Attn: Epic Prelude ADT LOR[place] STOV[place] [address] Care Team Providers Care Broadcast Operations Technician Name Role Phone Teresa Clifford Primary Care Provider Encounter Details Date Type Department Care Team (Late st Contact Info) Description 05/07/1992 Outpatient Historical Pedro Jennings MD [address] [place] [phone] Social History Tobacco Use Types Packs/Day Years Used Date Smoking Tobacco: Never Assessed Comments Unknown Sex and Gender Information Value Date Recorded Sex Assigned at Not on file 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
--- OUTSIDE RECORDS SUMMARY | 2025-04-28 10:48 | XMS_ITS | Encounter Summary ---
Author Organization [facility] Address [address] [address] Phone Care Team Providers Care And Taxi Instructor Bus Trolley Name Role Phone Unavailable Primary Care Provider Unavailabl e Reason for Referral * Consultation (Routine) - Authorized Specialty Diagnoses / Procedures Referred By Lew franklin Referred To Contact Nephrology Diagnoses Chronic kidney disease, Stage IV (severe) (HCC) Teresa Clifford NP [address] [place] [address] Phone: tel: fax: Toro Silverio MD [address] [address] Phone: tel: fax: Referral ID Status Reason Start Date Expiration Date Visits Requested Visits Authorized [id number] Authorized Consult and Treat 04/23/2025 04/23/2026 1 1 Encounter Details Date Type Department Care Team (Latest Contact Info) Description 04/23/2025 Transcribe Orders [facility] [address] [address] Teresa Clifford NP [address] [place] [address] Chronic kidney disease, Stage IV (severe) (HCC) (Primary Dx) Social History Tobacco Use Types Packs/Day Years Used Date Smoking Tobacco: Never Assessed Comments Unknown Sex and Gender Information Value Date Recorded Sex Assigned at Not on file Legal Sex Female 12:23 PM EDT Gender Identity Not on file Sexual Orientation Not on file documented as of this encounter Plan of Treatment Scheduled Referrals Name Type Priority Associated Diagnoses Order Schedule Ambulatory referral to Nephrology Outpatient Referral Routine Chronic kidney disease, Stage IV (severe) (HCC) Expected: 04/23/2025, Expires: 05/24/2026 documented as of this encounter Visit Diagnoses Diagnosis Chronic kidney disease, Stage IV (severe) (HCC)- Primary Chronic kidney disease, Stage IV (severe) documented in this encounter
--- NOTE | 2025-04-28 10:50 | XR_ITS ---
WS: [id number] Portable AP upright chest, 04/28/2025 Clinical Data: chest pain Comparison: Portable chest, 02/07/2024, CT chest abdomen pelvis, 04/09/2025 Findings: There is a patchy opacity of the left hilum which probably represents post radiation scarring. No nodules, masses or effusions are seen. The heart is slightly enlarged. The pulmonary vascularity is not increased. No pneumonia or pneumothorax is seen. There is a right internal jugular venous catheter which ends in the superior vena cava. The aortic arch is slightly calcified. Monitor leads are on the chest wall. XR/XR chest 1V portable [id number] Impression: 1. Patchy opacity left hilum which probably represents post radiation scarring. 2. Cardiomegaly and atherosclerosis.
--- NOTE | 2025-04-28 10:50 | ECG_ITS ---
[facility] Test Date: 2025-04-28 Pat Name: Janet Pillai Department: Room: Gender: Female Sales Commissions Analyst: : 1955 Requested By: Jailyn Cox Order Number: [id number] Huitron MD: Donell Tavares M.D. Measurements Intervals [place] Rate: 27 P: -24 NC: 228 QRS: -40 QRSD: 145 T: -1 QT: 489 QTc: 328 Interpretive Statements possible junctional bradycardia LEFT AXIS DEVIATION [QRS AXIS < -30] RIGHT BUNDLE BRANCH BLOCK [120+ ms QRS DURATION, UPRIGHT V1, 40+ ms S IN I/aVL/V4/V5/V6] CRITICAL TEST RESULT INTERPRETATION BASED ON A DEFAULT AGE OF 40 YEARS Compared to ECG 02/15/2024 09:24:40 junctional bradycardia is new Electronically Signed On 04-29-2025 22:09:26 BUSINESS SERVICES ASSOCIATE by Donell Tavares M.D. [id number]
--- NOTE | 2025-04-28 10:58 | W.ED.WEAKNES ---
HPI - Weakness General: Chief complaint: Arrhythmia/Palpitations Stated complaint: low hr, dr sent Time Seen by Provider: 04/28/25 10:50 History of Present Illness: 70-year-old female with a history of hyperlipidemia, GERD, hypertension, anxiety, chronic anticoagulation on Eliquis, aortic insufficiency, chronic kidney disease, atrial fibrillation, small cell lung cancer, morbid obesity, aortic insufficiency who presents emergency room from clinic with a low heart rate. She says she has been feeling a bit weak and tired but not overtly symptomatic. She presents with a heart rate of 27. No chest pain. No altered mental status. No abdominal pain. No nausea or vomiting. She is on metoprolol 50 mg twice daily and amiodarone 200 mg daily. Related Data Home Medications ?Medication ?Instructions ?Recorded ?Confirmed aspirin 81 mg tablet,delayed 81 mg PO QAM 06/21/19 04/28/25 release albuterol sulfate 90 mcg/actuation 2 puff inhalation Q6H PRN 05/17/23 04/28/25 aerosol inhaler Shortness Of Breath rosuvastatin 40 mg tablet 40 mg PO DAILY 10/30/24 04/28/25 Previous Rx's ?Medication ?Instructions ?Recorded Diabetic Shoes #1 ea 03/17/21 blood sugar diagnostic #100 ea 01/03/22 lancets (Accu-Chek Softclix #200 ea 01/03/22 Lancets) nitroglycerin 0.4 mg sublingual 0.4 mg sublingual Q5M PRN chest 02/24/22 tablet pain #25 tabs Diabetic Shoes and 3 inserts #1 ea 12/28/22 pen needle, diabetic 32 gauge x #100 ea 05/16/23 5/16 (Comfort EZ Pen [place]) PORTABLE OXYGEN CONCENTRATOR AND #1 ea 11/16/23 SUPPLIES CPAP (Auto-Titrating CPAP) #1 ea 02/12/24 metoprolol tartrate 50 mg tablet 50 mg PO BID #180 tabs 03/19/24 diabetic shoes with 3 inserts #1 ea 04/03/24 talavera balance brace, right foot #1 ea 09/30/24 electric powerchair #1 ea 10/04/24 ondansetron HCl 8 mg tablet 8 mg PO Q8H PRN nausea and 10/11/24 vomiting #30 tabs pantoprazole 40 mg tablet,delayed 40 mg PO BID 30 days #60 tabs 11/06/24 release cholecalciferol (vitamin D3) 1,250 See Rx Instructions .Route 01/13/25 mcg (50,000 unit) capsule .COMPLEX #12 caps potassium chloride 20 mEq 20 meq PO DAILY 90 days #90 tabs 01/20/25 tablet,extended release(part/cryst) (Klor-Con M) furosemide 20 mg tablet 20 mg PO DAILY 90 days #90 tabs 02/25/25 lorazepam 1 mg tablet (Ativan) 1 mg PO DAILY PRN anxiety #1 tab 02/25/25 spironolactone 25 mg tablet See Rx Instructions .Route 02/25/25 .COMPLEX #180 tabs amiodarone 200 mg tablet See Rx Instructions .Route 03/28/25 .COMPLEX #90 tabs losartan 100 mg tablet 100 mg PO DAILY #90 tabs 04/07/25 citalopram 10 mg tablet See Rx Instructions .Route 04/22/25 .COMPLEX 90 days #90 tabs nystatin 100,000 unit/gram topical 1 applic topical TID #30 grams 04/22/25 ointment 2 wheeled walker #1 ea 04/23/25 apixaban 5 mg tablet (Eliquis) See Rx Instructions .Route 04/28/25 .COMPLEX #60 tabs Allergies Allergy/AdvReac Type Severity Reaction Status Date / Time Sulfa (Sulfonamide Allergy Unknown Verified 04/28/25 11:00 Antibiotics) sulfamethoxazole (From Allergy itching Verified 04/28/25 11:00 Bactrim) trimethoprim (From Bactrim) Allergy itching Verified 04/28/25 11:00 Review of Systems Narrative: Constitutional symptoms: Negative except as documented in HPI. Skin symptoms: Negative except as documented in HPI. Eye symptoms: Negative except as documented in HPI. ENMT symptoms: Negative except as documented in HPI. Respiratory symptoms: Negative except as documented in HPI. Cardiovascular symptoms: Negative except as documented in HPI. Gastrointestinal symptoms: Negative except as documented in HPI. Genitourinary symptoms: Negative except as documented in HPI. Musculoskeletal symptoms: Negative except as documented in HPI. Neurologic symptoms: Negative except as documented in HPI. Psychiatric symptoms: Negative except as documented in HPI. Endocrine symptoms: Negative except as documented in HPI. PFSH ED PFSH: Medical History (Updated 04/28/25 @ 13:05 by Dania Holt MD) Mixed connective tissue disease Small cell lung cancer Port-A-Cath in place placed 08/[address] Kerr Former heavy cigarette smoker (20-39 per day) Quit in 2009 Aortic insufficiency dx 10/14/02 Dr Kam Martinez Arthralgia of both knees Venous insufficiency of both lower extremities Opioid contract exists Personal history of nicotine dependence Quit 2009 History of prior cigarette smoking Obesity Hypothyroidism (acquired) Chronic joint pain Anxiety and depression Hyperlipidemia Common migraine with intractable migraine Left Achilles tendinitis Back pain, lumbosacral Type 2 diabetes mellitus without complication, without long-term current use of insulin Essential hypertension COPD (chronic obstructive pulmonary disease) Gastroesophageal reflux disease without esophagitis Surgical History (Updated 04/28/25 @ 12:52 by Dania Holt MD) History of cardiac ablation for atrial fibrillation 01/[address] Solano History of incision and drainage (04/2021) Left groin abscess by Dr Zaldivar History of bronchoscopy 07/2023 Bronch with BAL and EBUS sampling of [address] Hurst Hx of colonoscopy with polypectomy [facility] Stented coronary artery 2 stents done 02/16/96 in [place] History of knee replacement 2009 History of delivery Family History Other CAD (coronary artery disease) Cancer Diabetes Denies family history of Rheumatoid arthritis Lupus Hyperlipidemia Chronic kidney disease (CKD) Hypertension Stroke Social History Smoking and tobacco/nicotine status: former use of tobacco/nicotine (quit 2009) Quit status (tobacco/nicotine): has quit using Year quit tobacco: 2009 Former quit date comment: 3 ppd X 37 years Alcohol intake: never Substance/Drug Use: never Lives independently: No Household members: spouse Marital status: Current occupational status: unemployed Do you think of yourself as: Straight/Heterosexual Current gender identity: Female Physical Exam Narrative: EXAM NARRATIVE: General: Alert, no acute distress. Skin: Warm, dry. Head: Normocephalic, atraumatic. Neck: Supple, trachea midline. Eye: Extraocular movements are intact. Ears, nose, mouth and throat: mucosa moist. Cardiovascular: Regular, bradycardic, normal peripheral perfusion. Respiratory: Lungs are clear to auscultation, respirations are non-labored, breath sounds are equal, Symmetrical chest wall expansion. Gastrointestinal: Soft, Nontender, Non distended Musculoskeletal: Normal ROM, no deformity. Neurological: Alert and oriented, No focal neurological deficit observed. Psychiatric: Cooperative, appropriate mood & affect. Course Vital Signs: Vital signs: Vital Signs Temperature 97.9 F 04/28/25 10:39 Pulse Rate 78 04/28/25 12:54 Blood Pressure 126/55 04/28/25 12:54 Pulse Oximetry 96 04/28/25 12:54 Oxygen Delivery Me thod Room Air 04/28/25 12:42 MDM - Weakness Medical Decision Making Medical decision making: Patient's reason for coming to the emergency room: Weakness and bradycardia found in clinic. Social determinants: Retired. . I reviewed the patient's medical record. 70-year-old female with a history of hyperlipidemia, GERD, hypertension, anxiety, chronic anticoagulation on Eliquis, aortic insufficiency, chronic kidney disease, atrial fibrillation, small cell lung cancer, morbid obesity, aortic insufficiency I reviewed the patient's current home meds She is on metoprolol 50 mg twice daily and amiodarone 200 mg daily. She is also on Eliquis. Alternate historians: present but patient gives sufficient history. Differential diagnosis for patient presenting with generalized weakness including but not limited to and based on the above HPI, review of systems and physical exam: Sepsis. Dehydration. Renal failure. Electrolyte abnormalities. Anemia. Congestive heart failure. Hypotension. Coronary syndrome. Hepatitis. Cirrhosis. Infections such as pneumonia, urinary tract infection, Tick bourne illness, Cellulitis, Viral infections including influenza and Covid-19. Workup: labwork and lab/exam driven imaging ordered to evaluate, rule in and rule out above pathologies. EKG: Time 1046. Rate 27. Bradycardia, likely complete block. Right bundle branch block, No ST-T changes, This was reviewed and interpreted by myself the ER physician at 10:50 AM Atropine given at around 11:30 AM. Rate improved into the 50s and then back down to in the 40s. Through all that she has been relatively asymptomatic. Repeat EKG after atropine: Time 11:46 AM. Rate 48. Bradycardia. Nonspecific ST changes, no ectopy, right bundle branch block, This was reviewed and interpreted by myself the ER physician at 11:50 AM Repeat EKG: Time 1253. Rate 51. Ectopic atrial bradycardia, nonspecific ST changes, no ectopy, right bundle branch block, This was reviewed and interpreted by myself the ER physician at 1258 Chest x-ray: Patchy opacity in the left hilum which likely represents postradiation scarring. Cardiomegaly. No obvious acute infiltrates. This was reviewed and interpreted by myself the emergency room physician. I also reviewed the radiology report. Lab Review: Laboratory results were reviewed and interpreted by myself the emergency room physician. Mild leukocytosis with a white count of 13,000. No anemia. Renal function is at the top end of her baseline with a BUN/creatinine of 52 and 2.2. Potassium is mildly elevated at 5.4. Initial troponin is slightly elevated at 47. This is near her baseline and likely just secondary to her worsening renal function. Assessment of risk: Level of risk: High risk. Multiple comorbidities. Anticoagulation. Hospitalization considerations: Patient is being hospitalized. Reexamination: Patient has had no chest pain. No altered mental status. No increased work of breathing. Consultation: I spoke initially with Dr. Solano who is on-call for interventional cardiology. Her heart rate had come up some with atropine he recommends dopamine and admission. She may ultimately need a pacemaker but this may just be underlying medication and kidney issues. He recommends consultation with Dr. Tavares if needed. Consultation: I spoke with Dr. Tavares who is on-call for cardiology. He agrees with the plan for admission. Hold metoprolol for now but likely keep amiodarone. She is prone to being tachycardic. Consultation: I spoke with Dr. Holt who is on-call for the hospitalist service who agrees to admission. Assessment and plan: Bradycardia Generalized weakness Acute on chronic renal insufficiency ?IV atropine given. Now starting dopamine. -I discussed the patient with the hospitalist on-call who is admitting the patient. - Discussed findings and plan with patient. Answered any questions. - All laboratory values were reviewed and interpreted personally by myself, the ER physician - All imaging was reviewed and interpreted personally by myself, the ER physician. - Evaluation and treatment of this problem were appropriate in the emergency setting Critical Care: -I spent a total of 55 minutes of critical care time managing the patient, independent of any other practitioner. -The time involved in the performance of separately reportable procedures was not counted towards critical care time. Lab Data 04/28/25 11:20 04/28/25 11:20 Radiology Impressions Chest X-Ray 04/28/25 10:50 Impression: 1. Patchy opacity left hilum which probably represents post radiation scarring. 2. Cardiomegaly and atherosclerosis. Laboratory Results WBC 12.98 10^3/uL (3.29-11.43) H 04/28/25 11:20 RBC 4.49 10^6/uL (3.85-5.65) 04/28/25 11:20 Hgb 13.60 g/dL (11.27-16.99) 04/28/25 11:20 Hct 43.8 % (36-47) 04/28/25 11:20 MCV 97.6 fl (85-98) 04/28/25 11:20 MCH 30.3 pg (27-33) 04/28/25 11:20 MCHC 31.1 g/dL (30-55) 04/28/25 11:20 RDW 14.3 % (12.1-15.1) 04/28/25 11:20 Plt Count 129 10^3/cmm (157-399) L 04/28/25 11:20 MPV 11.0 fL (7.4-10.4) H 04/28/25 11:20 Neut % (Auto) 80.4 % 04/28/25 11:20 Lymph % (Auto) 9.5 % 04/28/25 11:20 [place] % (Auto) 6.9 % 04/28/25 11:20 Eos % (Auto) 0.9 % 04/28/25 11:20 Baso % (Auto) 0.5 % 04/28/25 11:20 Neut # (Auto) 10.44 10^3/uL (1.8-7.7) H 04/28/25 11:20 Lymph # (Auto) 1.2 10^3/uL (0.8-4.8) 04/28/25 11:20 [place] # (Auto) 0.9 10^3/uL (0.2-0.9) 04/28/25 11:20 Eos # (Auto) 0.1 10^3/uL (0.0-0.8) 04/28/25 11:20 Baso # (Auto) 0.1 10^3/uL (0.0-0.1) 04/28/25 11:20 Nucleated RBC % (auto) 0 % 04/28/25 11:20 Nucleated RBCs # 0.0 /100WBC 04/28/25 11:20 Sodium 136 mmol/L (136-145) 04/28/25 11:20 Potassium 5.4 mmol/L (3.5-5.1) H 04/28/25 11:20 Chloride 105 mmol/L (98-107) 04/28/25 11:20 Carbon Dioxide 22 mmol/L (22-29) 04/28/25 11:20 Anion Gap 14.4 (5-19) 04/28/25 11:20 BUN 52 mg/dL (8-23) H 04/28/25 11:20 Creatinine 2.2 mg/dL (0.5-0.9) H 04/28/25 11:20 GFR Calculation 22.2 mL/min (90-130) L 04/28/25 11:20 Glucose 76 mg/dL (65-115) 04/28/25 11:20 Calculated Osmolality 295 mOsm/kg (285-295) 04/28/25 11:20 Calcium 8.9 mg/dL (8.5-10.5) 04/28/25 11:20 Total Bilirubin 0.5 mg/dL (0.15-1.2) 04/28/25 11:20 AST 12 U/L (0-32) 04/28/25 11:20 ALT 20 U/L (0-33) 04/28/25 11:20 Alkaline Phosphatase 43 U/L (35-105) 04/28/25 11:20 Troponin T Baseline 47 ng/L (0-10) H 04/28/25 11:20 NT-Pro-B Natriuret Pep 1250 pg/mL (0-125) H 04/28/25 11:20 Total Protein 5.6 g/dL (6.6-8.7) L 04/28/25 11:20 Albumin 3.7 g/dL (3.5-5.2) 04/28/25 11:20 Globulin 1.9 g/dL (1.3-4.6) 04/28/25 11:20 All radiology interpretation(s) finalized by discharge Discharge Plan Discharge Patient Disposition: Admitted As Inpatient Admit Provider: Dania Hlot Clinical Impression: Bradycardia, Acute on chronic renal insufficiency, Chronic anticoagulation Condition: Stable Coding Level of Care Code ED Photographer Apprentice for Jose Angel Harris
[2025-04-28] MEDS: atropine 0.1 mg/mL Syr 10 mL 1 MG IVP (11:30)
--- NOTE | 2025-04-28 11:39 | ECG_ITS ---
[facility]25[facility]28 Pat Name: Janet Pillai Department: Room: EDIP Gender: Female Clerical Methods Analyst: : 1955 Requested By: Jailyn Cox Order Number: [id number] Huitron MD: Donell Tavares M.D. Measurements Intervals [place] Rate: 27 P: -24 [place]: 228 QRS: -40 QRSD: 145 T: -1 QT: 489 QTc: 328 Interpretive Statements possible junctional bradycardia LEFT AXIS DEVIATION [QRS AXIS < -30] RIGHT BUNDLE BRANCH BLOCK [120+ ms QRS DURATION, UPRIGHT V1, 40+ ms S IN I/aVL/V4/V5/V6] CRITICAL TEST RESULT INTERPRETATION BASED ON A DEFAULT AGE OF 40 YEARS Compared to ECG 02/15/2024 09:24:40 junctional bradycardia is new Electronically Signed On 04-29-2025 22:10:15 SALES PLANNING ANALYST by Donell Tavares M.D. [email or web address] [id number]
[2025-04-28 11:40] LABS: Hematocrit 43.8 % (36-47); Hemoglobin 13.60 g/dL (11.27-16.99); Mean Corpuscular HGB Conc 31.1 g/dL (30-55); Mean Corpuscular Hemoglobin 30.3 pg (27-33); Mean Corpuscular Volume 97.6 fl (85-98); Nucleated Red Blood Cells % 0 %; Platelet Count 129 10^3/cmm (157-399); Red Blood Count 4.49 10^6/uL (3.85-5.65); White Blood Count 12.98 10^3/uL (3.29-11.43)
--- NOTE | 2025-04-28 11:52 | PC.NURSE ---
PT PLACED ON ZOLL MONITOR UPON ARRIVAL TO ROOM BY THIS NURSE.
[2025-04-28 11:53] LABS: Troponin(5th) Baseline 47 ng/L (0-10)
[2025-04-28 12:01] LABS: Alanine Aminotransferase 20 U/L (0-33); Albumin Level 3.7 g/dL (3.5-5.2); Alkaline Phosphatase 43 U/L (35-105); Aspartate Amino Transferase 12 U/L (0-32); Blood Urea Nitrogen 52 mg/dL (8-23); Calcium 8.9 mg/dL (8.5-10.5); Carbon Dioxide 22 mmol/L (22-29); Chloride 105 mmol/L (98-107); Creatinine Clr Calc Pharmacy 35.5629; Globulin 1.9 g/dL (1.3-4.6); Glucose 76 mg/dL (65-115); NT Pro B Type Natriuretic Pept 1250 pg/mL (0-125); Osmolality Calculated 295 mOsm/kg (285-295); Sodium 136 mmol/L (136-145); Total Protein 5.6 g/dL (6.6-8.7)
[2025-04-28 12:08] LABS: Anion Gap 14.4 (5-19); Potassium 5.4 mmol/L (3.5-5.1)
[2025-04-28] MEDS: DOPamine drip 400 MG/250 ML PREMIX 25.17 MG IV (12:36)
--- NOTE | 2025-04-28 12:50 | ECG_ITS ---
[facility] Test Date: 2025-04-28 Pat Name: Janet Pillai Department: Room: Gender: Female Life Skills Coordinator: : 1955 Requested By: Jailyn Cox Order Number: [id number] Huitron MD: Donell Tavares M.D. Measurements Intervals [place] Rate: 51 P: -83 [place]: 148 QRS: -60 QRSD: 162 T: 48 QT: 459 QTc: 423 Interpretive Statements ECTOPIC ATRIAL BRADYCARDIA RIGHT BUNDLE BRANCH BLOCK [120+ ms QRS DURATION, UPRIGHT V1, 40+ ms S IN I/aVL/V4/V5/V6] LEFT ANTERIOR FASCICULAR BLOCK [QRS AXIS <= -45, QR IN I, RS IN II] POSSIBLE ANTERIOR MYOCARDIAL INFARCTION , PROBABLY OLD [30 ms Q WAVE IN V3/V4, OR R < 0.2 mV IN V4] Compared to ECG 04/28/2025 10:46:11 Bradycardia, nonsinus now present Left anterior fascicular block now present Myocardial infarct finding now present.Sinus bradycardia no longer present First degree AV block no longer present.Left-axis deviation no longer present Electronically Signed On 04-29-2025 22:30:44 BULB FARMWORKER by Donell Tavares M.D. [id number]
--- NOTE | 2025-04-28 12:56 | PM.HP ---
Providers/Chief Complaint Admitting Physician: Dania Holt MD Primary Care Provider: DIONI Bruno Chief Complaint: low hr, dr sent History of Present Illness Janet Pillai is a 70 year old female who presented to the emergency room from the pain clinic where she was scheduled to see Dr. Nadeem Peralta for ongoing low back pain. During check-in she was noted to have a heart rate in the 20s and was sent for immediate evaluation. On arrival to the emergency room heart rate was 27 as documented on EKG. Patient has some chronic problems with shortness of breath, fatigue, weakness and dizziness though all of the symptoms have been worse lately. No reports of any chest pain. She did have an episode of nausea and vomiting in the emergency room but this was after treatment was initiated in the ER. Initially ED staff was unable to measure her blood pressure so she did receive 1 dose of atropine in the ER. She was subsequently put on dopamine drip with heart rate being maintained in the 40s to low 50s. She did not have any hypotension once blood pressure was measured in the emergency room and since initiation of dopamine has had hypertension. She did take her usual morning medicines this morning which do include amiodarone, metoprolol, Lasix, losartan and spironolactone. Hospitalist were contacted for admission for ongoing care. Looking at vital signs captured in the outpatient setting over the last few months her heart rate will at times be in the 50s but in March she did have episodes with a heart rate in the 40s. Back at the end of 2022 and beginning of 2023 she had an event monitor that showed baseline sinus bradycardia with heart rate at baseline in the 40s. Average heart rate was in the mid 70s with maximum heart rate 144. No atrial fibrillation was noted however in 2023 she had difficult to manage atrial fibrillation with rapid ventricular response during the timeframe in which she was undergoing treatment for lung cancer. She ultimately required cardioversion in January 2024 and has been maintained on amiodarone and metoprolol since then along with full anticoagulation with Eliquis. No previously documented encounters with significant bradycardia to this degree. She does have a history of coronary artery disease with stents placed some years ago. She had an echocardiogram in November 2023 at an outside facility that showed ejection fraction at 42% with global hypokinesis in the left parasternal short axis and apical views. Pulmonary pressure was 18 mmHg and trace aortic insufficiency identified. Cardiac stress test done here in 2020 did not show any evidence of ischemia on myocardial perfusion imaging or EKG tracings. She has had a nonproductive cough lately but not progressively worse. She has known sleep apnea but does not use CPAP. She will use oxygen at home at times. Has a history of COPD but quit smoking many years ago. Diet controlled diabetic with recent A1c at 6.2 and known dyslipidemia on statin therapy with low HDL recently noted on lipid panel. Given degree of bradycardia and heightened symptoms lately including weakness, dizziness, increasing falls and shortness of breath, Mrs. Pillai is being admitted to the ICU for further care and evaluation. Review of Systems General: Reports: Other (ROS as per HPI or as otherwise noted here) Const: Denies: fever(s) or change in weight Card: Reports: swelling of feet/ankles, lightheadedness, dyspnea on exertion and acrocyanosis (feet); Denies: chest pain, palpitations, irregular heart rhythm or syncope Resp: Reports: dyspnea, non-productive cough and other (uses oxygen at home, not using CPAP or oxygen at night); Denies: pain on inspiration or chest congestion GI: Reports: nausea and vomiting (once after dopamine started); Denies: hematemesis, coffee ground emesis, hematochezia or melena : Denies: difficulty voiding Musc: Reports: back pain (low back, doing exercises at home) Skin/Breast: Reports: other (lots of bruising and scratches to arms/legs from pet) Neuro: Reports: headache(s) Endo: Reports: other (blood sugars okay on diet control) Robe/Lymph: Reports: easy bruising, easy bleeding and other (no gross bleeding beyond scratches to extremities) Medications/Allergies Home Medications ?Medication ?Instructions ?Recorded ?Confirmed ?Last Taken ?Type aspirin 81 mg tablet,delayed 81 mg PO QAM 06/21/19 04/28/25 04/28/25 10:30 History release Diabetic Shoes #1 ea 03/17/21 04/28/25 Unknown Rx blood sugar diagnostic #100 ea 01/03/22 04/28/25 Unknown Rx lancets (Accu-Chek Softclix #200 ea 01/03/22 04/28/25 Unknown Rx Lancets) nitroglycerin 0.4 mg sublingual 0.4 mg sublingual Q5M PRN chest 02/24/22 04/28/25 01/10/24 Rx tablet pain #25 tabs Diabetic Shoes and 3 inserts #1 ea 12/28/22 04/28/25 Unknown Rx pen needle, diabetic 32 gauge x #100 ea 05/16/23 04/28/25 Unknown Rx 5/16 (Comfort EZ Pen [place]) PORTABLE OXYGEN CONCENTRATOR AND #1 ea 11/16/23 04/28/25 Unknown Rx SUPPLIES CPAP (Auto-Titrating CPAP) #1 ea 02/12/24 04/28/25 Unknown Rx metoprolol tartrate 50 mg tablet 50 mg PO BID #180 tabs 03/19/24 04/28/25 04/28/25 10:30 Rx diabetic shoes with 3 inserts #1 ea 04/03/24 04/28/25 Unknown Rx talavera balance brace, right foot #1 ea 09/30/24 04/28/25 Unknown Rx electric powerchair #1 ea 10/04/24 04/28/25 Unknown Rx rosuvastatin 40 mg tablet 40 mg PO DAILY 10/30/24 04/28/25 04/28/25 10:30 History cholecalciferol (vitamin D3) 1,250 See Rx Instructions .Route 01/13/25 04/28/25 04/23/25 09:00 Rx mcg (50,000 unit) capsule .COMPLEX #12 caps potassium chloride 20 mEq 20 meq PO DAILY 90 days #90 tabs 01/20/25 04/28/25 04/28/25 10:30 Rx tablet,extended release(part/cryst) (Klor-Con M) furosemide 20 mg tablet 20 mg PO DAILY 90 days #90 tabs 02/25/25 04/28/25 04/28/25 10:30 Rx spironolactone 25 mg tablet See Rx Instructions .Route 02/25/25 04/28/25 04/28/25 10:30 Rx .COMPLEX #180 tabs amiodarone 200 mg tablet See Rx Instructions .Route 03/28/25 04/28/25 04/28/25 10:30 Rx .COMPLEX #90 tabs losartan 100 mg tablet 100 mg PO DAILY #90 tabs 04/07/25 04/28/25 04/28/25 10:30 Rx citalopram 10 mg tablet See Rx Instructions .Route 1004/28/25 04/28/25 10:30 Rx .COMPLEX 90 days #90 tabs nystatin 100,000 unit/gram topical 1 applic topical TID #30 grams 04/22/25 04/28/25 04/27/25 Rx ointment 2 wheeled walker #1 ea 04/23/25 04/28/25 Unknown Rx apixaban 5 mg tablet (Eliquis) See Rx Instructions .Route 04/28/25 04/28/25 04/28/25 10:30 Rx .COMPLEX #60 tabs biotin 10,000 mcg capsule 10,000 mcg PO DAILY 04/28/25 04/28/25 04/27/25 19:00 History cetirizine 10 mg tablet (Zyrtec) 10 mg PO DAILY PRN Allergy Symptoms 04/28/25 04/28/25 Unknown History pantoprazole 40 mg tablet,delayed 40 mg PO DAILY 04/28/25 04/28/25 04/28/25 10:00 History release Allergies Allergy/AdvReac Type Severity Reaction Status Date / Time Sulfa (Sulfonamide Allergy Unknown Verified 04/28/25 11:00 Antibiotics) sulfamethoxazole (From Allergy itching Verified 04/28/25 11:00 Bactrim) trimethoprim (From Bactrim) Allergy itching Verified 04/28/25 11:00 Additional Medication Information Not using CPAP PFSH Acute PFSH: Medical History (Updated 04/28/25 @ 18:08 by Dania Holt MD) Dyslipidemia with low high density lipoprotein (HDL) cholesterol with hypertriglyceridemia due to type 2 diabetes mellitus History of cardiovascular stress test 12/2020 nl EKG response, nl myocardial perfusion with no evidence of ischemia Atrial fibrillation with rapid ventricular response History of cardioversion 01/[address] Solano, for difficult to control afib History of PFTs 06/17 moderate airflow obstruction with no significant response to bronchodilators History of Holter monitoring 06/16/2023-06/29/2023 baseline sinus daniel with 1st degree AVB, HR 41.4. Average was 76. Max was 144 bpm, no afib seen Mixed connective tissue disease Small cell lung cancer Port-A-Cath in place placed 08/[address] Kerr Former heavy cigarette smoker (20-39 per day) Quit in 2009 Aortic insufficiency dx 10/14/02 Dr Kam Martinez, non-rheumatic Arthralgia of both knees Venous insufficiency of both lower extremities Opioid contract exists Obesity Chronic joint pain Anxiety and depression Hyperlipidemia Common migraine with intractable migraine Left Achilles tendinitis Back pain, lumbosacral Type 2 diabetes mellitus without complication, without long-term current use of insulin Essential hypertension COPD (chronic obstructive pulmonary disease) Gastroesophageal reflux disease without esophagitis Surgical History (Updated 04/28/25 @ 18:30 by Dania Holt MD) History of cataract surgery History of esophagogastroduodenoscopy (EGD) 10/2024 Dr Kerr with polypectomy/biopsy duodenum and antrum; 02/2025 at [facility] with polypectomy History of incision and drainage (04/2021) Left groin abscess by Dr Zaldivar History of bronchoscopy 07/2023 Bronch with BAL and EBUS sampling of [address] Hurst Hx of colonoscopy with polypectomy 05/2024 Dr Kerr; 02/2025 at [facility] with polypectomy Stented coronary artery 2 stents done 02/16/96 in [place] History of knee replacement 2010, right History of delivery Family History Other CAD (coronary artery disease) Cancer Diabetes Denies family history of Rheumatoid arthritis Lupus Hyperlipidemia Chronic kidney disease (CKD) Hypertension Stroke Social History Smoking and tobacco/nicotine status: former use of tobacco/nicotine (quit 2009) Quit status (tobacco/nicotine): has quit using Year quit tobacco: 2009 Former quit date comment: 3 ppd X 37 years Alcohol intake: never Substance/Drug Use: never Lives independently: No Household members: spouse Marital status: Current occupational status: unemployed Do you think of yourself as: Straight/Heterosexual Current gender identity: Female Other PFSH information: Supplemental PFSH Information: Has wheelchair, canes at home, walker has been ordered. Vitals/I&O/Wt Last Vital Signs Temp 97.9 F 04/28/25 10:39 Pulse 78 04/28/25 12:54 BP 126/55 04/28/25 12:54 Pulse Ox 96 04/28/25 12:54 O2 Del Method Room Air 04/28/25 12:42 Weight last 48 hrs Weight 134.263 kg Physical Exam Narrative: Patient is awake and alert, able to provide history. Oriented to person, place and situation. Normocephalic. Thick hair noted. Pupils are equal reactive. No rhinorrhea appreciated. Mucous membranes are moist. Neck is large but supple. Lungs are clear to auscultation bilaterally without any rales rhonchi or wheezes. Cardiovascular exam reveals distant heart sounds. Rhythm is regular but bradycardic. Palpable pulses radially bilaterally. Brisk capillary refill at the fingertips. Toes are cyanotic on both feet with decreased capillary refill. Skin under breast is clear. Some erythema is noted under pannus and in groin. Abdomen is soft with positive bowel sounds. Trace edema at the ankles. Upper extremities more so than lower extremities with extensive bruising and scattered scratches that have scabs. No active bleeding appreciated. Moves all extremities. Intention tremor noted to both hands. Data 04/28/25 11:20 04/28/25 11:20 Other Labs: Radiology Impressions Chest X-Ray 04/28/25 10:50 Impression: 1. Patchy opacity left hilum which probably represents post radiation scarring. 2. Cardiomegaly and atherosclerosis. Laboratory Results WBC 12.98 10^3/uL (3.29-11.43) H 04/28/25 11:20 RBC 4.49 10^6/uL (3.85-5.65) 04/28/25 11:20 Hgb 13.60 g/dL (11.27-16.99) 04/28/25 11:20 Hct 43.8 % (36-47) 04/28/25 11:20 MCV 97.6 fl (85-98) 04/28/25 11:20 MCH 30.3 pg (27-33) 04/28/25 11:20 MCHC 31.1 g/dL (30-55) 04/28/25 11:20 RDW 14.3 % (12.1-15.1) 04/28/25 11:20 Plt Count 129 10^3/cmm (157-399) L 04/28/25 11:20 MPV 11.0 fL (7.4-10.4) H 04/28/25 11:20 Neut % (Auto) 80.4 % 04/28/25 11:20 Lymph % (Auto) 9.5 % 04/28/25 11:20 [place] % (Auto) 6.9 % 04/28/25 11:20 Eos % (Auto) 0.9 % 04/28/25 11:20 Baso % (Auto) 0.5 % 04/28/25 11:20 Neut # (Auto) 10.44 10^3/uL (1.8-7.7) H 04/28/25 11:20 Lymph # (Auto) 1.2 10^3/uL (0.8-4.8) 04/28/25 11:20 [place] # (Auto) 0.9 10^3/uL (0.2-0.9) 04/28/25 11:20 Eos # (Auto) 0.1 10^3/uL (0.0-0.8) 04/28/25 11:20 Baso # (Auto) 0.1 10^3/uL (0.0-0.1) 04/28/25 11:20 Nucleated RBC % (auto) 0 % 04/28/25 11:20 Nucleated RBCs # 0.0 /100WBC 04/28/25 11:20 Sodium 136 mmol/L (136-145) 04/28/25 11:20 Potassium 5.4 mmol/L (3.5-5.1) H 04/28/25 11:20 Chloride 105 mmol/L (98-107) 04/28/25 11:20 Carbon Dioxide 22 mmol/L (22-29) 04/28/25 11:20 Anion Gap 14.4 (5-19) 04/28/25 11:20 BUN 52 mg/dL (8-23) H 04/28/25 11:20 Creatinine 2.2 mg/dL (0.5-0.9) H 04/28/25 11:20 GFR Calculation 22.2 mL/min (90-130) L 04/28/25 11:20 Glucose 76 mg/dL (65-115) 04/28/25 11:20 Calculated Osmolality 295 mOsm/kg (285-295) 04/28/25 11:20 Calcium 8.9 mg/dL (8.5-10.5) 04/28/25 11:20 Total Bilirubin 0.5 mg/dL (0.15-1.2) 04/28/25 11:20 AST 12 U/L (0-32) 04/28/25 11:20 ALT 20 U/L (0-33) 04/28/25 11:20 Alkaline Phosphatase 43 U/L (35-105) 04/28/25 11:20 Troponin T Baseline 47 ng/L (0-10) H 04/28/25 11:20 NT-Pro-B Natriuret Pep 1250 pg/mL (0-125) H 04/28/25 11:20 Total Protein 5.6 g/dL (6.6-8.7) L 04/28/25 11:20 Albumin 3.7 g/dL (3.5-5.2) 04/28/25 11:20 Globulin 1.9 g/dL (1.3-4.6) 04/28/25 11:20 EKG 1: My Interpretation: Sinus daniel at 27 10:46 am EKG 2: My Interpretation: Sinus daniel at 51 12:53 pm Other data: 04/09/2025 CT Chest/Abd/Pelvis IMPRESSION: 1. Stable posttreatment areas of fibrosis and volume loss centered at the LEFT hilum and extending into the central upper and lower lobes. No recurrent mass identified on this unenhanced exam. 2. No mediastinal or hilar adenopathy. 3. No metastatic disease to notified in the liver or adrenal glands on this unenhanced exam. 4. Sigmoid diverticulosis without acute diverticulitis. 5. Fibroid uterus. A&P Assessment and plan 1. Symptomatic bradycardia: Has had some degree of sinus bradycardia dating back at least to end of 2022 when an event monitor showed a baseline sinus bradycardia with heart rate in the 40s. Subsequently had difficult to control atrial fibrillation with rapid ventricular response and underwent cardioversion in January 2024. She has been on amiodarone and metoprolol tartrate along with Eliquis since then. Review of heart rate in the interim shows periodic values in the mid to upper 40s/low 50s and 1 documented episode of tachycardia since undergoing cardioversion with heart rate at 102. Initial EKG in the emergency room showed heart rate at 27 with first-degree AV block. Patient has had increased difficulty walking, increased falls, increased sensation of dizziness and weakness beyond her baseline challenges over the last few weeks. After a dose of atropine and with administration of dopamine drip heart rate is being maintained in the 40s presently. She is feeling better. - ICU admission - Continue dopamine, monitoring blood pressures closely - Hold amiodarone and metoprolol tartrate - Pacer pads in place - Cardiology consultation - Continue serial cardiac enzymes and EKGs - Anticipate may need pacemaker placement for management of tachybradycardia syndrome but will need to follow clinical course before determination - Will hold Eliquis due to potential need for invasive intervention - Fall precautions 2. History of atrial fibrillation: Noted to have difficult to manage atrial fibrillation with rapid ventricular response and 2023 during timeframe in which she was undergoing treatment for lung cancer. Was treated with multiple medications and ultimately required cardioversion. Has been on amiodarone and beta-blockade since then with maintenance of sinus rhythm at times sinus bradycardia. - Aware of prior history 3. Essential hypertension: Chronically on beta-blockade, 2 diuretics and an ARB with good management. Presently with dopamine for bradycardia having some elevated blood pressures. Has developed some nausea after initiation of dopamine along with 1 episode of vomiting thus far. May be coinciding with higher blood pressures. No EKG changes noted during acute episode of nausea. - Continue Lasix but at 40 mg daily given holding of other medications and elevated potassium - Decreasing losartan to 50 secondary to hyperkalemia - Holding potassium and spironolactone secondary to hyperkalemia - Will need to monitor blood pressures and potassium levels, adjusting management as needed 4. Coronary arteriosclerosis: Known history of coronary artery disease with prior coronary stents. Last stress testing was in 2020 and did not show any evidence of ischemia but she did have an echocardiogram done last year that showed global hypokinesis and an ejection fraction of 42%. Denies any episodes of chest pain but has had 2 episodes of nausea with vomiting x 1 today after initiation of dopamine. - Continue to trend serial cardiac enzymes - Continue home statin and aspirin therapy along with as needed sublingual nitroglycerin - EKG as needed for symptoms or change in status 5. Chronic anticoagulation: On Eliquis chronically due to history of atrial fibrillation and prior cardioversion - Eliquis currently held in anticipation of potential need for invasive procedure should she require intervention for bradycardia - Will start Lovenox tomorrow at prophylactic dosing 6. Kidney disease, chronic, stage IV (GFR 15-29 ml/min): Has been referred to nephrology in [place] due to worsening kidney function. I suspect there is and element of hypoperfusion from bradycardia in addition to other contributions to worsening chronic kidney disease over time. She is chronically on diuretic therapy with furosemide and spironolactone as well as on an ARB. Continues to make urine. Potassium is slightly up today. Is on potassium replacement. BUN and creatinine today are improved from values last month but still with significant decrease in GFR. - Holding Aldactone and potassium presently - Continue Lasix but at increased dosing to account for current renal function and holding of other antihypertensive agents - Will decrease losartan dosing presently - Has elevated BNP though value is lower than what it has been on most prior checks and not demonstrating signs of significant volume overload presently - Will check urinalysis given renal function and elevation in white blood count 7. Centrilobular emphysema: Previous PFTs did not show significant response to bronchodilator treatment. Has a bit of a nonproductive cough and baseline shortness of breath currently. Reports using oxygen at home but not outside of the home. Previously smoked but quit in 2009. - Oxygen as needed - Monitor for need for additional management 8. 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 Status post treatment with combined chemoradiation followed by prophylactic irradiation. PET scan in August of this year showed no evidence of disease and is for continued surveillance. - CT chest abdomen and pelvis done last month did not show any evidence of lesions that might contribute to presenting symptoms. - Chest x-ray findings today consistent with known chronic changes from cancer. 9. HENRY (obstructive sleep apnea): Not using CPAP - Educated about the importance of using CPAP to help with management of hypertension and arrhythmias both acutely and long-term 10. Type 2 diabetes mellitus without complication, without long-term current use of insulin: Diet controlled. A1c in January of this year 6.2. - Consistent carbohydrate diet 11. Gastroesophageal reflux disease without esophagitis: Chronically on PPI - Continue Protonix at daily dosing as usual home medication as prescribed 12. Candidal intertrigo: Has been using nystatin powder and recently prescribed ointment - Continue nystatin under breast, under pannus and in groin as needed 13. Tremor of both hands: Noted on physical exam, intention tremor. Not on any medication for this. - Monitor as needed 14. Port-A-Cath in place: Aware 15. Morbid obesity with BMI of 45.0-49.9, adult: Plan: Leukocytosis which has been present for about a month, may be related to intertriginous changes, reactive or secondary to other processes. Not having fevers or other findings indicative of an acute infectious process beyond skin changes. Will recheck as clinically indicated. Platelets are borderline as well. Chronically on statin therapy which I have continued. Chronically on citalopram which I have continued. Frequent falls lately and gait instability, will need to be considered with disposition planning if requires any invasive intervention. VTE prophylaxis: Lovenox to start tomorrow, she took Eliquis today GI Prophylaxis: PPI is a chronic medication Antibiotics: none presently; has been using nystatin topical Pending studies: 6-hour troponin and morning labs Telemetry: Ordered due to bradycardia Sandhu: not currently indicated Line(s): peripheral IVs Disposition plan: Home with outpatient follow up to cardiology and primary care provider anticipated along with other specialist whom she sees regularly. Will likely have some medication changes and potentially postprocedural care needs. Has difficulty with ambulation necessitating use of assistive devices which she will need to be kept in mind if she has any invasive procedures, in terms of discharge planning. Code Status: Full Code as per discussion with patient Supportive care otherwise Findings, concerns and plans were discussed with patient and her who was here in the room and they were given an opportunity to ask questions PDMP PDMP Reviewed: Last Reviewed 04/28/25 16:40 by Dania Holt MD Attestations Medical Necessity Statement*: Anticipated stay greater than two midnights in this patient with symptomatic bradycardia presenting with heart rate in the 20s. She is on 2 medications that may impact rate and has comorbid concurrent and prior medical history including chronic kidney disease stage IV, prior difficult to control atrial fibrillation with rapid ventricular response and a history of coronary artery disease with 2 stents along with chronic anticoagulation that have to be considered. Currently on dopamine drip in the ICU with multiple medication changes along with close monitoring and will be evaluated by cardiology. At risk of significant endorgan damage up to and including the possibility of without acute care management. Coding Level of Care Code 83843 High MDM includes number and complexity of problems actively addressed during encounter, amount and/or complexity of data reviewed/ordered [ previous or external records, resulted lab(s)/test(s), independent historian () and other healthcare professional discussion (Dr. 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
[2025-04-28 14:11] LABS: Troponin 5 2HR 46.02 ng/L (0-10)
[2025-04-28 14:15] LABS: Troponin 5 2HR Delta -0.98 ABS# (0-10)
--- NOTE | 2025-04-28 15:42 | PC.NURSE ---
PER VERBAL ORDER FROM DR. PONCE, DOPAMINE TO BE TITRATED DOWN TO 3MCG/MIN IF SYSTOLIC PRESSURE REACHES 170.
--- NOTE | 2025-04-28 16:50 | ECG_ITS ---
[employer] 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 Measurements Intervals [place] Rate: 42 P: 215 OK: 145 QRS: -48 QRSD: 146 T: 14 QT: 465 QTc: 391 Interpretive Statements ECTOPIC ATRIAL BRADYCARDIA RIGHT BUNDLE BRANCH BLOCK [120+ ms QRS DURATION, UPRIGHT V1, 40+ ms S IN I/aVL/V4/V5/V6] LEFT ANTERIOR FASCICULAR BLOCK [QRS AXIS <= -45, QR IN I, RS IN II] POSSIBLE ANTERIOR MYOCARDIAL INFARCTION , PROBABLY OLD [30 ms Q WAVE IN V3/V4, OR R < 0.2 mV IN V4] Compared to ECG 04/28/2025 12:53:15 No significant changes Electronically Signed On 04-29-2025 22:25:36 CERTIFIED FRAUD EXAMINER by Donell Tavares M.D. [email or web address]
--- NOTE | 2025-04-28 18:28 | PM.CONSULT ---
Providers/Reason For Consult Consulting Physician/Specialty*: JORGE L Tavares MD/cardiology Reason for Consult*: Patient with a severe bradycardia Requesting Physician: Dr. Holt Attending Physician: Dania Holt MD Primary Care Provider: DIONI Bruno History of Present Illness History of Present Illness Janet Pillai is a 70 year old female with a history of atherosclerotic heart diseas and intermittent atrial fibrillation, is admitted to the hospital through the emergency room, where she presented with generalized weakness and bradycardia-found to have heart rate in the 20s. Cardiology consult is requested for further cardiac evaluation and recommendations. This patient is known to have atrial fibrillation and had a cardioversion in January of last year when she presented with atrial fibrillation rapid ventricular rate. She was placed on amiodarone 200 mg p.o. daily and metoprolol 50 mg p.o. twice daily. She apparently has been taking this medication. She has not had any recurrence of symptomatic atrial fibrillation since then. She has a history of atherosclerotic heart disease and had PCI of the right coronary artery in 1996 in [place] . She has not had any recent coronary interventions. She has a history of endocarditis and aortic valve regurgitation. History of uncontrolled blood pressure, type 2 diabetes, dyslipidemia, COPD, chronic kidney disease, chronic venous insufficiency. She has a history of small cell carcinoma of the lung for which she underwent chemo therapy and radiation. She seems to be in remission. She is known to have morbid obesity and? Sleep apnea. Denies any fever, chills or cough. No other specific complaints. She apparently was seen in the pain clinic today for a routine follow-up. She was found to be bradycardic with a heart rate in the 20s. Subsequently she was evaluated in the emergency room. In the emergency room, she was given IV atropine which increased her heart rate in the 40s. Then she was started on IV dopamine. Currently she is on a dopamine drip of 5 mics per KG per minute. Her heart rate stays in the low 50s. She has some nausea with the dopamine. This seems to be slowly improving. No chest pain or chest tightness. No unusual shortness of breath. This patient has a history of heavy smoking abuse, up to 5 pack a day which she quit in 2009 Review of Systems Narrative: CONSTITUTIONAL: No fever or chills. EYES: No blurring of vision or other visual disturbances lately. ENT: No hoarseness of voice, auditory disturbances or sore throat. CARDIOVASCULAR: As mentioned above. RESPIRATORY: History of small cell CA of the lung, status post chemo therapy and radiation GASTROINTESTINAL: No hematemesis or melena. GENITOURINARY: No dysuria or hematuria. INTEGUMENTARY: No skin rashes or history of skin cancer. NEURO: No transient ischemic attacks or amaurosis. PSYCHIATRIC: No history of psychosis or major depression. HEMATOLOGIC: On long-term oral anticoagulation ENDOCRINE: History of type 2 diabetes MUSCULOSKELETAL: No recent joint pain or swelling. ALLERGY/IMMUNOLOGY: As mentioned above. Medications/Allergies Home Medications ?Medication ?Instructions ?Recorded ?Confirmed ?Last Taken ?Type aspirin 81 mg tablet,delayed 81 mg PO QAM 06/21/19 04/28/25 04/28/25 10:30 History release Diabetic Shoes #1 ea 03/17/21 04/28/25 Unknown Rx blood sugar diagnostic #100 ea 01/03/22 04/28/25 Unknown Rx lancets (Accu-Chek Softclix #200 ea 01/03/22 04/28/25 Unknown Rx Lancets) nitroglycerin 0.4 mg sublingual 0.4 mg sublingual Q5M PRN chest 02/24/22 04/28/25 01/10/24 Rx tablet pain #25 tabs Diabetic Shoes and 3 inserts #1 ea 12/28/22 04/28/25 Unknown Rx pen needle, diabetic 32 gauge x #100 ea 05/16/23 04/28/25 Unknown Rx 5/16 (Comfort EZ Pen [place]) PORTABLE OXYGEN CONCENTRATOR AND #1 ea 11/16/23 04/28/25 Unknown Rx SUPPLIES CPAP (Auto-Titrating CPAP) #1 ea 02/12/24 04/28/25 Unknown Rx metoprolol tartrate 50 mg tablet 50 mg PO BID #180 tabs 03/19/24 04/28/25 04/28/25 10:30 Rx diabetic shoes with 3 inserts #1 ea 04/03/24 04/28/25 Unknown Rx talavera balance brace, right foot #1 ea 09/30/24 04/28/25 Unknown Rx electric powerchair #1 ea 10/04/24 04/28/25 Unknown Rx rosuvastatin 40 mg tablet 40 mg PO DAILY 10/30/24 04/28/25 04/28/25 10:30 History cholecalciferol (vitamin D3) 1,250 See Rx Instructions .Route 01/13/25 04/28/25 04/23/25 09:00 Rx mcg (50,000 unit) capsule .COMPLEX #12 caps potassium chloride 20 mEq 20 meq PO DAILY 90 days #90 tabs 01/20/25 04/28/25 04/28/25 10:30 Rx tablet,extended release(part/cryst) (Klor-Con M) furosemide 20 mg tablet 20 mg PO DAILY 90 days #90 tabs 02/25/25 04/28/25 04/28/25 10:30 Rx spironolactone 25 mg tablet See Rx Instructions .Route 02/25/25 04/28/25 04/28/25 10:30 Rx .COMPLEX #180 tabs amiodarone 200 mg tablet See Rx Instructions .Route 03/28/25 04/28/25 04/28/25 10:30 Rx .COMPLEX #90 tabs losartan 100 mg tablet 100 mg PO DAILY #90 tabs 04/07/25 04/28/25 04/28/25 10:30 Rx citalopram 10 mg tablet See Rx Instructions .Route 04/22/25 04/28/25 04/28/25 10:30 Rx .COMPLEX 90 days #90 tabs nystatin 100,000 unit/gram topical 1 applic topical TID #30 grams 04/22/25 04/28/25 04/27/25 Rx ointment 2 wheeled walker #1 ea 04/23/25 04/28/25 Unknown Rx apixaban 5 mg tablet (Eliquis) See Rx Instructions .Route 04/28/25 04/28/25 04/28/25 10:30 Rx .COMPLEX #60 tabs biotin 10,000 mcg capsule 10,000 mcg PO DAILY 04/28/25 04/28/25 04/27/25 19:00 History cetirizine 10 mg tablet (Zyrtec) 10 mg PO DAILY PRN Allergy Symptoms 04/28/25 04/28/25 Unknown History pantoprazole 40 mg tablet,delayed 40 mg PO DAILY 04/28/25 04/28/25 04/28/25 10:00 History release Allergies Allergy/AdvReac Type Severity Reaction Status Date / Time Sulfa (Sulfonamide Allergy Unknown Verified 04/28/25 11:00 Antibiotics) sulfamethoxazole (From Allergy itching Verified 04/28/25 11:00 Bactrim) trimethoprim (From Bactrim) Allergy itching Verified 04/28/25 11:00 Current Medications Generic Name Dose Route Start Last Admin Trade Name Freq PRN Reason Stop Dose Admin Dopamine HCl/Dextrose 400 mg in 250 mls @ 25.174 mls/hr 04/28/25 12:15 04/28/25 12:36 Intropin Drip IV 5 mcg/kg/min CONT NOEL 25.17 mls/hr Protocol Administration 5 MCG/KG/MIN Nystatin 1 applic 04/28/25 17:00 04/28/25 18:16 Nystatin Cream 30 Gm TOPICAL 1 applic BID NOEL Administration PFSH Acute PFSH: Medical History Dyslipidemia with low high density lipoprotein (HDL) cholesterol with hypertriglyceridemia due to type 2 diabetes mellitus History of cardiovascular stress test 12/2020 nl EKG response, nl myocardial perfusion with no evidence of ischemia Atrial fibrillation with rapid ventricular response History of cardioversion 01/[address] Solano, for difficult to control afib History of PFTs 06/17 moderate airflow obstruction with no significant response to bronchodilators History of Holter monitoring 06/16/2023-06/29/2023 baseline sinus daniel with 1st degree AVB, HR 41.4. Average was 76. Max was 144 bpm, no afib seen Mixed connective tissue disease Small cell lung cancer Port-A-Cath in place placed 08/[address] Kerr Former heavy cigarette smoker (20-39 per day) Quit in 2009 Aortic insufficiency dx 10/14/02 Dr Kam Martinez, non-rheumatic Arthralgia of both knees Venous insufficiency of both lower extremities Opioid contract exists Obesity Chronic joint pain Anxiety and depression Hyperlipidemia Common migraine with intractable migraine Left Achilles tendinitis Back pain, lumbosacral Type 2 diabetes mellitus without complication, without long-term current use of insulin Essential hypertension COPD (chronic obstructive pulmonary disease) Gastroesophageal reflux disease without esophagitis Surgical History History of cataract surgery History of esophagogastroduodenoscopy (EGD) 10/2024 Dr Kerr with polypectomy/biopsy duodenum and antrum; 02/2025 at [facility] with polypectomy History of incision and drainage (04/2021) Left groin abscess by Dr Zaldivar History of bronchoscopy 07/2023 Bronch with BAL and EBUS sampling of [address] uHrst Hx of colonoscopy with polypectomy 05/2024 Dr Kerr; 02/2025 at [facility] with polypectomy Stented coronary artery 2 stents done 02/16/96 in [place] History of knee replacement 2010, right History of delivery Family History Other CAD (coronary artery disease) Cancer Diabetes Denies family history of Rheumatoid arthritis Lupus Hyperlipidemia Chronic kidney disease (CKD) Hypertension Stroke Social History Smoking and tobacco/nicotine status: former use of tobacco/nicotine (quit 2009) Quit status (tobacco/nicotine): has quit using Year quit tobacco: 2009 Former quit date comment: 3 ppd X 37 years Alcohol intake: never Substance/Drug Use: never Lives independently: No Household members: spouse Marital status: Current occupational status: unemployed Do you think of yourself as: Straight/Heterosexual Current gender identity: Female Vitals/I&O/Wt Last Vital Signs Temp 97.9 F 04/28/25 10:39 Pulse 56 L 04/28/25 18:15 Resp 17 04/28/25 18:15 BP 150/63 04/28/25 18:15 Pulse Ox 96 04/28/25 18:15 O2 Del Method Room Air 04/28/25 16:16 Weight last 48 hrs Weight 296 lb Physical Exam Narrative: GENERAL: The patient is alert and oriented times three. Not in any acute distress. Morbidly obese HEENT: No significant pallor, icterus or lymphadenopathy.Oral cavity: There are no mucous membrane lesions. NECK: Trachea appears to be central. No masses noted. No JVD or thyromegaly appreciated. RESPIRATORY: Chest is symmetrical. No intercostals muscle retraction or any accessory muscle activation. There is no chest wall tenderness. Breath sounds are heard bilaterally. No rales or rhonchi heard. No evidence of any consolidation. BREASTS: Deferred. HEART: The heart sounds are normal. No S3 or S4. No significant murmurs. No pericardial rub ABDOMEN: Obese, nontender no vessel pulsations or distention. No tenderness. No organomegaly appreciated. Bowel sounds are normally heard. : Deferred. RECTAL: Deferred. LYMPHATIC: No lymphadenopathy noted in the neck. EXTREMITIES: No edema or cyanosis. No clubbing. MUSCULOSKELETAL: No acute joint deformities or swelling SKIN: There are no significant rashes or ecchymosis NEUROPSYCHIATRIC: The patient is alert and oriented x3. Appears to be in a good mood. No tremors or rigidity noted. Data 04/29/25 05:23 04/29/25 16:01 Other Labs: Laboratory Last Values WBC 12.98 10^3/uL (3.29-11.43) H 04/28/25 11:20 RBC 4.49 10^6/uL (3.85-5.65) 04/28/25 11:20 Hgb 13.60 g/dL (11.27-16.99) 04/28/25 11:20 Hct 43.8 % (36-47) 04/28/25 11:20 MCV 97.6 fl (85-98) 04/28/25 11:20 MCH 30.3 pg (27-33) 04/28/25 11:20 MCHC 31.1 g/dL (30-55) 04/28/25 11:20 RDW 14.3 % (12.1-15.1) 04/28/25 11:20 Plt Count 129 10^3/cmm (157-399) L 04/28/25 11:20 MPV 11.0 fL (7.4-10.4) H 04/28/25 11:20 Neut % (Auto) 80.4 % 04/28/25 11:20 Lymph % (Auto) 9.5 % 04/28/25 11:20 Carver % (Auto) 6.9 % 04/28/25 11:20 Eos % (Auto) 0.9 % 04/28/25 11:20 Baso % (Auto) 0.5 % 04/28/25 11:20 Neut # (Auto) 10.44 10^3/uL (1.8-7.7) H 04/28/25 11:20 Lymph # (Auto) 1.2 10^3/uL (0.8-4.8) 04/28/25 11:20 Carver # (Auto) 0.9 10^3/uL (0.2-0.9) 04/28/25 11:20 Eos # (Auto) 0.1 10^3/uL (0.0-0.8) 04/28/25 11:20 Baso # (Auto) 0.1 10^3/uL (0.0-0.1) 04/28/25 11:20 Nucleated RBC % (auto) 0 % 04/28/25 11:20 Nucleated RBCs # 0.0 /100WBC 04/28/25 11:20 Sodium 136 mmol/L (136-145) 04/28/25 11:20 Potassium 5.4 mmol/L (3.5-5.1) H 04/28/25 11:20 Chloride 105 mmol/L (98-107) 04/28/25 11:20 Carbon Dioxide 22 mmol/L (22-29) 04/28/25 11:20 Anion Gap 14.4 (5-19) 04/28/25 11:20 BUN 52 mg/dL (8-23) H 04/28/25 11:20 Creatinine 2.2 mg/dL (0.5-0.9) H 04/28/25 11:20 GFR Calculation 22.2 mL/min (90-130) L 04/28/25 11:20 Glucose 76 mg/dL (65-115) 04/28/25 11:20 Calculated Osmolality 295 mOsm/kg (285-295) 04/28/25 11:20 Calcium 8.9 mg/dL (8.5-10.5) 04/28/25 11:20 Total Bilirubin 0.5 mg/dL (0.15-1.2) 04/28/25 11:20 AST 12 U/L (0-32) 04/28/25 11:20 ALT 20 U/L (0-33) 04/28/25 11:20 Alkaline Phosphatase 43 U/L (35-105) 04/28/25 11:20 Troponin T Baseline 47 ng/L (0-10) H 04/28/25 11:20 Troponin T 120 Minute 46.02 ng/L (0-10) H 04/28/25 13:44 Delta Troponin T -0.98 ABS# (0-10) L 04/28/25 13:44 NT-Pro-B Natriuret Pep 1250 pg/mL (0-125) H 04/28/25 11:20 Total Protein 5.6 g/dL (6.6-8.7) L 04/28/25 11:20 Albumin 3.7 g/dL (3.5-5.2) 04/28/25 11:20 Globulin 1.9 g/dL (1.3-4.6) 04/28/25 11:20 A&P Assessment and plan 1. Bradycardia: The patient may have an underlying sinus node dysfunction. The amiodarone with the metoprolol may be the aggravating factors. At this point, it would be appropriate to hold off on the metoprolol and amiodarone. May gradually taper down the dose of the dopamine. Hemodynamically she seems to be stable. 2. Atherosclerosis of [place] coronary artery of [place] heart without angina pectoris: Currently the patient has no specific symptoms of coronary insufficiency. May continue on the current management. 3. Essential hypertension: Blood pressure is under control. May continue on the current medication. 4. Aortic valve insufficiency, etiology of cardiac valve disease unspecified: The status of the aortic regurgitation is not known at this point. A repeat echocardiogram would be helpful to evaluate LV function and valve function. 5. Type 2 diabetes mellitus without complication, without long-term current use of insulin: May continue on the current management. 6. Intermittent atrial fibrillation: Patient seems to be in an sinus bradycardia at this point. 7. Chronic anticoagulation: Patient is on long-term oral anticoagulation. Agree with holding off on Eliquis and starting her on IV heparin 8. Kidney disease, chronic, stage IV (GFR 15-29 ml/min): Kidney function seems to be stable 9. 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 Closely monitor on telemetry. Titrate to keep on the lowest dose of dopamine to maintain a heart rate in the upper 40s/low 50s I also may check on the thyroid profile Based on the clinical progress and results of the above tests , further recommendations will be made. Thank you for the opportunity to evaluate this patient and make these recommendations PDMP PDMP Reviewed: Not Reviewed Coding Level of Care Code 69208 Diagnoses Bradycardia R00.1 Atherosclerosis of [place] coronary artery of [place] heart without angina pectoris I25.10 [place] vs. 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
[2025-04-28 18:44] LABS: Troponin 5 6HR 52.98 ng/L (0-10); Troponin 5 6HR Delta 5.98 ng/L (0-12)
[2025-04-28 19:48] LABS: Thyroid Stimulating Hormone 4.04 uIU/mL (0.27-4.20)
[2025-04-28 22:28] LABS: Glucose Urine UA Negative (Normal); Nitrate Urine Negative (Negative); Specific Gravity, Urine 1.014 (1.005-1.030)
[2025-04-28 22:32] LABS: Add Urine Microscopic? YES
--- NOTE | 2025-04-28 23:26 | PC.NURSE ---
Provider notified of patients persistent nausea and vomiting. Provider gave orders for PRN 4mg Zofran IVP and a one time dose of 0.5mg Ativan to administer with the zofran. Order placed. See MAR
[2025-04-28] MEDS: LORazepam 1 MG/0.5 ML injection 0.5 MG IVP (23:52)
--- NOTE | 2025-04-28 23:57 | PC.NURSE ---
Charge Nurse and Dobie Man both present when Pyxis was not working properly. Patients order was active in the system, but the pyxis stated no lorazepam was available in the entire facility. Charge nurse, KWAN Kennedy stated she had a similar problem with the one time order of Lorazepam during a previous shift. System would not let this nurse scan medication to administer either. Jame up 0.25ml per order and charge nurse shown waste. Lot #[id number] Exp:
[2025-04-29] VITALS (100 sets, daily range): BP systolic 73–154; BP diastolic 39–99; PULSE 48–86; RESP 12–25; TEMP 36.6–36.9; O2SAT 87–100
[2025-04-29] MEDS: DOPamine drip 400 MG/250 ML PREMIX 12.59 MG IV (01:37)
[2025-04-29] MEDS: CITALOPRAM 10 MG TABLET PO (05:33)
[2025-04-29 06:00] LABS: Hematocrit 43.6 % (36-47); Hemoglobin 13.70 g/dL (11.27-16.99); Mean Corpuscular HGB Conc 31.4 g/dL (30-55); Mean Corpuscular Hemoglobin 30.7 pg (27-33); Mean Corpuscular Volume 97.8 fl (85-98); Nucleated Red Blood Cells % 0 %; Platelet Count 116 10^3/cmm (157-399); Red Blood Count 4.46 10^6/uL (3.85-5.65); White Blood Count 12.79 10^3/uL (3.29-11.43)
--- NOTE | 2025-04-29 06:13 | USCV_ITS ---
Janet Pillai Age: 70 Gender: F : 1955 Exam Date: 04/29/2025 02:44 Ordering Phys: Dania Holt MD Technologist: BRADEN [place] [facility] [place]: symptomatic bradycardia, hx CAD, SOB fatigue, morbid obesity, lung CA BP: 150 / 63 HR: 48 Rhythm: Sinus bradycardia Technical Quality: Adequate MEASUREMENTS (Male / Female) Normal Values 2D ECHO LV Diastolic Diameter PLAX 3.8 cm 4.2 - 5.9 / 3.9 - 5.3 cm IVS Diastolic Thickness 1.4 cm 0.6 - 1.0 / 0.6 - 0.9 cm IVS Systolic Thickness 1.8 cm LVPW Diastolic Thickness 1.6 cm 0.6 - 1.0 / 0.6 - 0.9 cm LVPW Systolic Thickness 1.7 cm LVOT Diameter 2.5 cm LV Ejection Fraction 2D Teich 61.6 % LV Ejection Fraction MOD 4C 60.8 % LV Ejection Fraction MOD 2C 42.0 % LV Ejection Fraction 2C AL 42.9 % LA Sys Volume AL 82.3 cm cubed LA Sys Volume Index AL 33.1 cm cubed/m squared Aorta at Sinotubular Diameter 2.8 cm IVC Diameter 1.3 cm M-MODE LA Ao Ratio MM 1.4 AV Cusp Separation MM 2.1 cm DOPPLER AV Peak Velocity 195.0 cm/s LVOT Peak Velocity 151.0 cm/s AV Area Cont Eq vti 3.6 cm squared AV Area Cont Eq pk 3.7 cm squared MV Peak Velocity 99.0 cm/s MV Area PHT 3.8 cm squared Mitral E to A Ratio 1.1 TR Peak Velocity 293.0 cm/s TR Peak Gradient 34.3 mmHg TV Peak E Velocity 70.0 cm/s FINDINGS Left Ventricle Normal left ventricular size and systolic function, EF 61%. Mild left ventricular hypertrophy. No regional wall motion abnormalities. Grade II/IV diastolic dysfunction, moderately elevated filling pressures. Right Ventricle Normal right ventricular size and systolic function. Right Atrium Normal right atrial size. Left Atrium Mildly increased left atrial size. IA Septum Normal appearance of the interatrial septum. Mitral Valve No gross abnormalities noted Aortic Valve Trace aortic valve regurgitation. Aortic valve sclerosis. Tricuspid Valve Trace to mild tricuspid valve regurgitation. Estimated pulmonary artery peak systolic pressure 47 mmHg Pulmonic Valve Pulmonic valve not well visualized. Pericardium No pericardial effusion. Aorta Normal aortic annulus size. IVC Normal inferior vena cava. CONCLUSIONS Normal left ventricular size and systolic function, EF 61%. Mild left ventricular hypertrophy. No regional wall motion abnormalities. Grade II/IV diastolic dysfunction, moderately elevated filling pressures. Mildly increased left atrial size. Trace aortic valve regurgitation. Aortic valve sclerosis. Trace to mild tricuspid valve regurgitation. Estimated pulmonary artery peak systolic pressure 47 mmHg. There is no pericardial effusion. There are no intracardiac masses. Compared to the study from 09/01/2022, there is slight worsening of the left ventricular diastolic dysfunction Dr Donell Tavares MD [facility] (Electronically Signed) Final Date: 29 April 2025 08:54 S
[2025-04-29 07:09] LABS: Anion Gap 13.5 (5-19); Blood Urea Nitrogen 45 mg/dL (8-23); Calcium 9.1 mg/dL (8.5-10.5); Carbon Dioxide 21 mmol/L (22-29); Chloride 104 mmol/L (98-107); Creatinine Clr Calc Pharmacy 43.5483; Glucose 114 mg/dL (65-115); Magnesium 1.6 mg/dL (1.7-2.3); Osmolality Calculated 288 mOsm/kg (285-295); Potassium 5.5 mmol/L (3.5-5.1); Sodium 133 mmol/L (136-145)
--- NOTE | 2025-04-29 09:28 | PC.NURSE ---
Addendum entered by Yifan Bey RN 04/29/25 10:08: A short time after Dr Tavares gave the order to restart amiodarone, the patient's heart rate again dropped. Into the high 40's. Amiodarone was never given. Patient is asymptomatic. Nurse alerted Dr Tavares and received order to not give the amiodarone and continue to monitor. Original Note: Heart Rate: Dopamine turned off at 0800. SInce then the patient has had a heart rate in the 70's when awake and talking to visitors. in the mif 50's when at rest. Dr Tavares restarted amiodarone at 0930
--- NOTE | 2025-04-29 15:38 | PM.PN ---
Subjective Subjective: Heart rate ranging 54-62 this morning. No new complaints. No chest pain. Medications: Reviewed: Yes Medication Review Details: Not using CPAP Vitals/I&O/Wt Last Vital Signs Temp 97.9 F 04/29/25 12:30 Pulse 59 L 04/29/25 14:30 Resp 15 04/29/25 14:30 BP 114/46 04/29/25 14:30 Pulse Ox 94 04/29/25 14:30 O2 Del Method Room Air 04/29/25 12:30 04/29/25 04/29/25 04/29/25 06:59 14:59 22:59 Intake Total 90.798 / 250.000 480.366 / 480.366 Output Total 700 / 920 700 / 700 Balance -609.202 / -670.000 -219.634 / -219.634 Weight last 48 hrs Weight 134.7 kg Weight 134.263 kg Physical Exam Narrative: General: No acute distress, AO x3 HEENT: PERRLA, pupils bilaterally equal and reactive, pallors not present Chest: Normal vesicular breath sounds, no added sounds, equal good air entry bilaterally CVS: S1-S2 regular, no murmurs, no tachycardia, no gallops, no rubs Abdomen: Soft, nontender, no organomegaly, bowel sounds present Neuro: No focal deficits, no facial deformity, AO x3, power 5/5 in all limbs Data 04/29/25 05:23 04/29/25 06:37 A&P Assessment and plan 1. Symptomatic bradycardia: 2. History of atrial fibrillation: 3. Centrilobular emphysema: 4. 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 Status post treatment with combined chemoradiation followed by prophylactic irradiation. PET scan in August of this year showed no evidence of disease and is for continued surveillance. - CT chest abdomen and pelvis done last month did not show any evidence of lesions that might contribute to presenting symptoms. - Chest x-ray findings today consistent with known chronic changes from cancer. 5. HENRY (obstructive sleep apnea): 6. Type 2 diabetes mellitus without complication, without long-term current use of insulin: Plan: April 29, 2025 Chart reviewed. Patient's heart rate is better today ranging between 54-62. Case discussed with cardiology. Continue to hold metoprolol. Will resume amiodarone once heart rate shows consistent improvement. Noted hyperkalemia with potassium at 5.5. Discontinue losartan administer insulin dextrose and recheck in the evening. Will arrange for event monitor at discharge PDMP PDMP Reviewed: Not Reviewed Attestations Medical Necessity Statement*: Off dopamine, closely monitor for improvement in heart rate. To resume amiodarone in AM. 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
[2025-04-29 16:30] LABS: Alanine Aminotransferase 18 U/L (0-33); Albumin Level 3.2 g/dL (3.5-5.2); Alkaline Phosphatase 43 U/L (35-105); Anion Gap 15.1 (5-19); Aspartate Amino Transferase 10 U/L (0-32); Blood Urea Nitrogen 53 mg/dL (8-23); Calcium 8.5 mg/dL (8.5-10.5); Carbon Dioxide 21 mmol/L (22-29); Chloride 104 mmol/L (98-107); Creatinine Clr Calc Pharmacy 31.3548; Globulin 1.9 g/dL (1.3-4.6); Glucose 143 mg/dL (65-115); Osmolality Calculated 297 mOsm/kg (285-295); Potassium 5.1 mmol/L (3.5-5.1); Sodium 135 mmol/L (136-145); Total Protein 5.1 g/dL (6.6-8.7)
--- NOTE | 2025-04-29 18:25 | PC.NURSE ---
Shift SUmmary: Uneventful shift. Rested in bed for most of the day, but occaisonally up to a chair or toilet. Dopamine turned off at beggining of shift and remained off throughout the day. Heart rate mostly in the low 60's, but occasionally in the 40's, which prevented us from restarting the amiodarone today.
--- NOTE | 2025-04-29 22:41 | PM.PN ---
Subjective Subjective: Patient is feeling okay. The dopamine is being tapered off. No chest pain. No palpitation, dizziness or syncopal episodes. Medications: Medication Review Details: Current Medications Acetaminophen (Acetaminophen 325 Mg Tablet) 650 mg PO Q6H PRN PRN Reason: MILD PAIN Amiodarone HCl (Amiodarone 200 Mg Tablet) 200 mg PO DAILY [facility] Aspirin (Aspirin 81 Mg Ec Tablet) 81 mg PO QAM [facility] Last Admin: 04/29/25 05:32 Dose: 81 mg Atorvastatin Calcium (Atorvastatin 40 Mg Tablet) 80 mg PO BEDTIME [facility] Last Admin: 04/29/25 20:46 Dose: 80 mg Citalopram Hydrobromide (Citalopram 10 Mg Tablet) 10 mg PO DAILY [facility] Last Admin: 04/29/25 05:33 Dose: 10 mg Enoxaparin Sodium (Enoxaparin 30 Mg/0.3 Ml Syringe) 30 mg SUBCUT Q24H [facility] Last Admin: 04/29/25 05:34 Dose: 30 mg Furosemide (Furosemide 20 Mg Tablet) 40 mg PO DAILY [facility] Last Admin: 04/29/25 05:34 Dose: 40 mg Nitroglycerin (Nitroglycerin 0.4 Mg Sublingual Tablet) 0.4 mg SUBLINGUAL Q5M PRN PRN Reason: CHEST PAIN Nystatin (Nystatin Cream 30 Gm) 1 applic TOPICAL BID [facility] Last Admin: 04/29/25 18:17 Dose: 1 applic Ondansetron HCl (Ondansetron 2 Mg/Ml Sdv 2 Ml) 4 mg IVP Q4H PRN PRN Reason: NAUSEA AND VOMITING Pantoprazole Sodium (Pantoprazole Dr 40 Mg Tablet) 40 mg PO DAILY [facility] Last Admin: 04/29/25 05:37 Dose: 40 mg Vitals/I&O/Wt Last Vital Signs Temp 97.9 F 04/29/25 21:00 Pulse 65 04/29/25 22:15 Resp 17 04/29/25 22:15 BP 94/42 04/29/25 22:15 Pulse Ox 99 04/29/25 22:15 O2 Del Method Room Air 04/29/25 18:00 04/29/25 04/29/25 04/29/25 06:59 14:59 22:59 Intake Total 90.798 / 250.000 480.366 / 480.366 Output Total 700 / 920 700 / 700 400 / 1100 Balance -609.202 / -670.000 -219.634 / -219.634 -400 / -619.634 Weight last 48 hrs Weight 296 lb 15.402 oz Weight 296 lb Physical Exam Narrative: GENERAL: The patient is alert and oriented times three. Not in any acute distress. Morbidly obese HEENT: No significant pallor, icterus or lymphadenopathy.Oral cavity: There are no mucous membrane lesions. NECK: Trachea appears to be central. No masses noted. No JVD or thyromegaly appreciated. RESPIRATORY: Chest is symmetrical. No intercostals muscle retraction or any accessory muscle activation. There is no chest wall tenderness. Breath sounds are heard bilaterally. No rales or rhonchi heard. No evidence of any consolidation. BREASTS: Deferred. HEART: The heart sounds are normal. No S3 or S4. No significant murmurs. No pericardial rub ABDOMEN: Obese, nontender no vessel pulsations or distention. No tenderness. No organomegaly appreciated. Bowel sounds are normally heard. : Deferred. RECTAL: Deferred. LYMPHATIC: No lymphadenopathy noted in the neck. EXTREMITIES: No edema or cyanosis. No clubbing. MUSCULOSKELETAL: No acute joint deformities or swelling SKIN: There are no significant rashes or ecchymosis NEUROPSYCHIATRIC: The patient is alert and oriented x3. Appears to be in a good mood. No tremors or rigidity noted. Data 04/29/25 05:23 04/29/25 16:01 Other Labs: Laboratory Last Values WBC 12.79 10^3/uL (3.29-11.43) H 04/29/25 05:23 RBC 4.46 10^6/uL (3.85-5.65) 04/29/25 05:23 Hgb 13.70 g/dL (11.27-16.99) 04/29/25 05:23 Hct 43.6 % (36-47) 04/29/25 05:23 MCV 97.8 fl (85-98) 04/29/25 05:23 MCH 30.7 pg (27-33) 04/29/25 05:23 MCHC 31.4 g/dL (30-55) 04/29/25 05:23 RDW 13.7 % (12.1-15.1) 04/29/25 05:23 Plt Count 116 10^3/cmm (157-399) L 04/29/25 05:23 MPV 10.6 fL (7.4-10.4) H 04/29/25 05:23 Neut % (Auto) 83.3 % 04/29/25 05:23 Lymph % (Auto) 8.3 % 04/29/25 05:23 [place] % (Auto) 6.1 % 04/29/25 05:23 Eos % (Auto) 0.9 % 04/29/25 05:23 Baso % (Auto) 0.5 % 04/29/25 05:23 Neut # (Auto) 10.67 10^3/uL (1.8-7.7) H 04/29/25 05:23 Lymph # (Auto) 1.1 10^3/uL (0.8-4.8) 04/29/25 05:23 [place] # (Auto) 0.8 10^3/uL (0.2-0.9) 04/29/25 05:23 Eos # (Auto) 0.1 10^3/uL (0.0-0.8) 04/29/25 05:23 Baso # (Auto) 0.1 10^3/uL (0.0-0.1) 04/29/25 05:23 Nucleated RBC % (auto) 0 % 04/29/25 05:23 Nucleated RBCs # 0.0 /100WBC 04/29/25 05:23 Sodium 135 mmol/L (136-145) L 04/29/25 16:01 Potassium 5.1 mmol/L (3.5-5.1) 04/29/25 16:01 Chloride 104 mmol/L (98-107) 04/29/25 16:01 Carbon Dioxide 21 mmol/L (22-29) L 04/29/25 16:01 Anion Gap 15.1 (5-19) 04/29/25 16:01 BUN 53 mg/dL (8-23) H 04/29/25 16:01 Creatinine 2.5 mg/dL (0.5-0.9) H 04/29/25 16:01 GFR Calculation 19.2 mL/min (90-130) L 04/29/25 16:01 Glucose 143 mg/dL (65-115) H 04/29/25 16:01 Calculated Osmolality 297 mOsm/kg (285-295) H 04/29/25 16:01 Calcium 8.5 mg/dL (8.5-10.5) 04/29/25 16:01 Phosphorus 3.2 mg/dL (2.5-4.5) 04/29/25 06:37 Magnesium 1.6 mg/dL (1.7-2.3) L 04/29/25 06:37 Total Bilirubin 0.5 mg/dL (0.15-1.2) 04/29/25 16:01 AST 10 U/L (0-32) 04/29/25 16:01 ALT 18 U/L (0-33) 04/29/25 16:01 Alkaline Phosphatase 43 U/L (35-105) 04/29/25 16:01 Troponin T Baseline 47 ng/L (0-10) H 04/28/25 11:20 Troponin T 120 Minute 46.02 ng/L (0-10) H 04/28/25 13:44 Delta Troponin T -0.98 ABS# (0-10) L 04/28/25 13:44 Troponin T Hi Sens 6Hr 52.98 ng/L (0-10) H 04/28/25 17:57 Troponin T Hi Sens 6Hr Delta 5.98 ng/L (0-12) 04/28/25 17:57 NT-Pro-B Natriuret Pep 1250 pg/mL (0-125) H 04/28/25 11:20 Total Protein 5.1 g/dL (6.6-8.7) L 04/29/25 16:01 Albumin 3.2 g/dL (3.5-5.2) L 04/29/25 16:01 Globulin 1.9 g/dL (1.3-4.6) 04/29/25 16:01 TSH 4.04 uIU/mL (0.27-4.20) 04/28/25 11:20 Urine Color Yellow (Yellow) 04/28/25 20:55 Urine Appearance Clear (CLEAR) 04/28/25 20: Urine pH 5.0 (5-7) 04/28/25 20:55 Ur Specific [place] 1.014 (1.005-1.030) 04/28/25 20:55 Urine Protein Negative (Negative) 04/28/25 20:55 Urine Glucose (UA) Negative (Normal) 04/28/25 20:55 Urine Ketones Negative (Negative) 04/28/25 20: Urine Blood Negative (Negative) 04/28/25 20: Urine Nitrate Negative (Negative) 04/28/25 20:55 Urine Bilirubin Negative (Negative) 04/28/25 20:55 Urine Urobilinogen 0.2 mg/dL (Negative) 04/28/25 20:55 Ur Leukocyte Esterase Negative (Negative) 04/28/25 20:55 Urine RBC 0-2 /hpf (0-2) 04/28/25 20:55 Urine WBC 0-5 /hpf (0-5) 04/28/25 20:55 Ur Squamous Epith Cells 0-5 /hpf (0-5) 04/28/25 20: Amorphous Sediment Not Reportable 04/28/25 20:55 Urine Bacteria None seen /hpf (NONE) 04/28/25 20: Hyaline Casts 3.30 /lpf 04/28/25 20:55 Other data: Echocardiogram from today Normal left ventricular size and systolic function, EF 61%. Mild left ventricular hypertrophy. No regional wall motion abnormalities. Grade II/IV diastolic dysfunction, moderately elevated filling pressures. Mildly increased left atrial size. Trace aortic valve regurgitation. Aortic valve sclerosis. Trace to mild tricuspid valve regurgitation. Estimated pulmonary artery peak systolic pressure 47 mmHg. There is no pericardial effusion. There are no intracardiac masses. Compared to the study from 09/01/2022, there is slight worsening of the left ventricular diastolic dysfunction A&P Assessment and plan 1. Bradycardia: The patient may have an underlying sinus node dysfunction. The amiodarone with the metoprolol may be the aggravating factors. At this point, it would be appropriate to hold off on the metoprolol and amiodarone. Patient is off the dopamine. If the heart rate stays in the normal range, I may restart the amiodarone and still hold off on the metoprolol 2. Atherosclerosis of [place] coronary artery of [place] heart without angina pectoris: Currently the patient has no specific symptoms of coronary insufficiency. May continue on the current management. 3. Essential hypertension: Blood pressure is in the low normal range.. May continue on the current medication. 4. Aortic valve insufficiency, etiology of cardiac valve disease unspecified: The aortic regurgitation appears to be trace 5. Type 2 diabetes mellitus without complication, without long-term current use of insulin: May continue on the current management. 6. Intermittent atrial fibrillation: Patient seems to be in an sinus bradycardia at this point. 7. Chronic anticoagulation: Patient is on long-term oral anticoagulation. Agree with holding off on Eliquis and starting her on IV heparin 8. Kidney disease, chronic, stage IV (GFR 15-29 ml/min): Kidney function seems to be stable 9. 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 Also consider restarting the Eliquis, if the heart rate remains stable PDMP PDMP Reviewed: Not Reviewed Attestations Medical Necessity Statement*: Deferred to the primary Coding Level of Care Code 92447 Diagnoses Bradycardia R00.1 Atherosclerosis of [place] coronary artery of [place] heart without angina pectoris I25.10 [place] vs. 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
[2025-04-30] VITALS (53 sets, daily range): BP systolic 91–165; BP diastolic 57–98; PULSE 59–108; RESP 12–26; TEMP 36.5–36.8; O2SAT 77–100
[2025-04-30 05:10] LABS: Hematocrit 37.9 % (36-47); Hemoglobin 12.00 g/dL (11.27-16.99); Mean Corpuscular HGB Conc 31.7 g/dL (30-55); Mean Corpuscular Hemoglobin 30.2 pg (27-33); Mean Corpuscular Volume 95.2 fl (85-98); Nucleated Red Blood Cells % 0 %; Platelet Count 91 10^3/cmm (157-399); Red Blood Count 3.98 10^6/uL (3.85-5.65); White Blood Count 9.76 10^3/uL (3.29-11.43)
[2025-04-30 05:34] LABS: Alanine Aminotransferase 17 U/L (0-33); Albumin Level 3.2 g/dL (3.5-5.2); Alkaline Phosphatase 42 U/L (35-105); Anion Gap 14.4 (5-19); Aspartate Amino Transferase 10 U/L (0-32); Blood Urea Nitrogen 52 mg/dL (8-23); Calcium 9.2 mg/dL (8.5-10.5); Carbon Dioxide 21 mmol/L (22-29); Chloride 103 mmol/L (98-107); Creatinine Clr Calc Pharmacy 37.3271; Globulin 1.9 g/dL (1.3-4.6); Glucose 112 mg/dL (65-115); Osmolality Calculated 291 mOsm/kg (285-295); Potassium 5.4 mmol/L (3.5-5.1); Sodium 133 mmol/L (136-145); Total Protein 5.1 g/dL (6.6-8.7)
[2025-04-30] MEDS: CITALOPRAM 10 MG TABLET PO (06:04)
--- NOTE | 2025-04-30 08:54 | P.PN_ITS ---
Subjective 2 Subjective: Patient seems to be doing okay. The heart rate is in the 60s and 70s at rest. She was placed back on the amiodarone. Medications: Medication Review Details: Current Medications Acetaminophen (Acetaminophen 325 Mg Tablet) 650 mg PO Q6H PRN PRN Reason: MILD PAIN Amiodarone HCl (Amiodarone 200 Mg Tablet) 200 mg PO DAILY [facility] Last Admin: 04/30/25 06:04 Dose: 200 mg Aspirin (Aspirin 81 Mg Ec Tablet) 81 mg PO QAM [facility] Last Admin: 04/30/25 06:04 Dose: 81 mg Atorvastatin Calcium (Atorvastatin 40 Mg Tablet) 80 mg PO BEDTIME [facility] Last Admin: 04/29/25 20:46 Dose: 80 mg Citalopram Hydrobromide (Citalopram 10 Mg Tablet) 10 mg PO DAILY [facility] Last Admin: 04/30/25 06:04 Dose: 10 mg Enoxaparin Sodium (Enoxaparin 30 Mg/0.3 Ml Syringe) 30 mg SUBCUT Q24H [facility] Last Admin: 04/30/25 06:05 Dose: 30 mg Furosemide (Furosemide 20 Mg Tablet) 40 mg PO DAILY [facility] Last Admin: 04/30/25 06:04 Dose: 40 mg Nitroglycerin (Nitroglycerin 0.4 Mg Sublingual Tablet) 0.4 mg SUBLINGUAL Q5M PRN PRN Reason: CHEST PAIN Nystatin (Nystatin Cream 30 Gm) 1 applic TOPICAL BID [facility] Last Admin: 04/30/25 06:05 Dose: 1 applic Ondansetron HCl (Ondansetron 2 Mg/Ml Sdv 2 Ml) 4 mg IVP Q4H PRN PRN Reason: NAUSEA AND VOMITING Pantoprazole Sodium (Pantoprazole Dr 40 Mg Tablet) 40 mg PO DAILY [facility] Last Admin: 04/30/25 06:04 Dose: 40 mg Vitals/I&O/Wt Last Vital Signs Temp 97.9 F 04/30/25 08:15 Pulse 92 04/30/25 08:15 Resp 19 H 04/30/25 08:15 BP 143/74 04/30/25 08:15 Pulse Ox 89 L 04/30/25 08:15 O2 Del Method Nasal Cannula 04/30/25 08:15 O2 Flow Rate 1 04/30/25 08:15 04/29/25 04/30/25 04/30/25 22:59 06:59 14:59 Intake Total 120 / 600.366 240 / 240 Output Total 400 / 1100 800 / 1900 300 / 300 Balance -400 / -619.634 -680 / -1299.634 -60 / -60 Weight last 48 hrs Weight 297 lb 2.93 oz Weight 296 lb 15.402 oz Weight 296 lb Physical Exam 2 Narrative: GENERAL: The patient is alert and oriented times three. Not in any acute distress. Morbidly obese HEENT: No significant pallor, icterus or lymphadenopathy.Oral cavity: There are no mucous membrane lesions. NECK: Trachea appears to be central. No masses noted. No JVD or thyromegaly appreciated. RESPIRATORY: Chest is symmetrical. No intercostals muscle retraction or any accessory muscle activation. There is no chest wall tenderness. Breath sounds are heard bilaterally. No rales or rhonchi heard. No evidence of any consolidation. BREASTS: Deferred. HEART: The heart sounds are normal. No S3 or S4. No significant murmurs. No pericardial rub ABDOMEN: Obese, nontender no vessel pulsations or distention. No tenderness. No organomegaly appreciated. Bowel sounds are normally heard. : Deferred. RECTAL: Deferred. LYMPHATIC: No lymphadenopathy noted in the neck. EXTREMITIES: No edema or cyanosis. No clubbing. MUSCULOSKELETAL: No acute joint deformities or swelling SKIN: There are no significant rashes or ecchymosis NEUROPSYCHIATRIC: The patient is alert and oriented x3. Appears to be in a good mood. No tremors or rigidity noted. Data 04/30/25 04:40 04/30/25 04:40 Other Labs: Laboratory Last Values WBC 9.76 10^3/uL (3.29-11.43) 04/30/25 04:40 RBC 3.98 10^6/uL (3.85-5.65) 04/30/25 04:40 Hgb 12.00 g/dL (11.27-16.99) 04/30/25 04:40 Hct 37.9 % (36-47) 04/30/25 04:40 MCV 95.2 fl (85-98) 04/30/25 04:40 MCH 30.2 pg (27-33) 04/30/25 04:40 MCHC 31.7 g/dL (30-55) 04/30/25 04:40 RDW 13.9 % (12.1-15.1) 04/30/25 04:40 Plt Count 91 10^3/cmm (157-399) L 04/30/25 04:40 MPV 11.0 fL (7.4-10.4) H 04/30/25 04:40 Neut % (Auto) 82.9 % 04/30/25 04:40 Lymph % (Auto) 8.7 % 04/30/25 04:40 [place] % (Auto) 5.6 % 04/30/25 04:40 Eos % (Auto) 0.9 % 04/30/25 04:40 Baso % (Auto) 0.3 % 04/30/25 04:40 Neut # (Auto) 8.08 10^3/uL (1.8-7.7) H 04/30/25 04:40 Lymph # (Auto) 0.9 10^3/uL (0.8-4.8) 04/30/25 04:40 [place] # (Auto) 0.6 10^3/uL (0.2-0.9) 04/30/25 04:40 Eos # (Auto) 0.1 10^3/uL (0.0-0.8) 04/30/25 04:40 Baso # (Auto) 0.0 10^3/uL (0.0-0.1) 04/30/25 04:40 Nucleated RBC % (auto) 0 % 04/30/25 04:40 Nucleated RBCs # 0.0 /100WBC 04/30/25 04:40 Sodium 133 mmol/L (136-145) L 04/30/25 04:40 Potassium 5.4 mmol/L (3.5-5.1) H 04/30/25 04:40 Chloride 103 mmol/L (98-107) 04/30/25 04:40 Carbon Dioxide 21 mmol/L (22-29) L 04/30/25 04:40 Anion Gap 14.4 (5-19) 04/30/25 04:40 BUN 52 mg/dL (8-23) H 04/30/25 04:40 Creatinine 2.1 mg/dL (0.5-0.9) H 04/30/25 04:40 GFR Calculation 23.4 mL/min (90-130) L 04/30/25 04:40 Glucose 112 mg/dL (65-115) 04/30/25 04:40 Calculated Osmolality 291 mOsm/kg (285-295) 04/30/25 04:40 Calcium 9.2 mg/dL (8.5-10.5) 04/30/25 04:40 Phosphorus 3.2 mg/dL (2.5-4.5) 04/29/25 06:37 Magnesium 1.6 mg/dL (1.7-2.3) L 04/29/25 06:37 Total Bilirubin 0.5 mg/dL (0.15-1.2) 04/30/25 04:40 AST 10 U/L (0-32) 04/30/25 04:40 ALT 17 U/L (0-33) 04/30/25 04:40 Alkaline Phosphatase 42 U/L (35-105) 04/30/25 04:40 Troponin T Baseline 47 ng/L (0-10) H 04/28/25 11:20 Troponin T 120 Minute 46.02 ng/L (0-10) H 04/28/25 13:44 Delta Troponin T -0.98 ABS# (0-10) L 04/28/25 13:44 Troponin T Hi Sens 6Hr 52.98 ng/L (0-10) H 04/28/25 17:57 Troponin T Hi Sens 6Hr Delta 5.98 ng/L (0-12) 04/28/25 17:57 NT-Pro-B Natriuret Pep 1250 pg/mL (0-125) H 04/28/25 11:20 Total Protein 5.1 g/dL (6.6-8.7) L 04/30/25 04:40 Albumin 3.2 g/dL (3.5-5.2) L 04/30/25 04:40 Globulin 1.9 g/dL (1.3-4.6) 04/30/25 04:40 TSH 4.04 uIU/mL (0.27-4.20) 04/28/25 11:20 Urine Color Yellow (Yellow) 04/28/25 20:55 Urine Appearance Clear (CLEAR) 04/28/25 20:55 Urine pH 5.0 (5-7) 04/28/25 20:55 Ur Specific [place] 1.014 (1.005-1.030) 04/28/25 20:55 Urine Protein Negative (Negative) 04/28/25 20:55 Urine Glucose (UA) Negative (Normal) 04/28/25 20:55 Urine Ketones Negative (Negative) 04/28/25 20:55 Urine Blood Negative (Negative) 04/28/25 20:55 Urine Nitrate Negative (Negative) 04/28/25 20:55 Urine Bilirubin Negative (Negative) 04/28/25 20: Urine Urobilinogen 0.2 mg/dL (Negative) 04/28/25 20:55 Ur Leukocyte Esterase Negative (Negative) 04/28/25 20:55 Urine RBC 0-2 /hpf (0-2) 04/28/25 20:55 Urine WBC 0-5 /hpf (0-5) 04/28/25 20:55 Ur Squamous Epith Cells 0-5 /hpf (0-5) 04/28/25 20:55 Amorphous Sediment Not Reportable 04/28/25 20: Urine Bacteria None seen /hpf (NONE) 04/28/25 20: Hyaline Casts 3.30 /lpf 04/28/25 20:55 A&P Assessment and plan 1. Bradycardia: Patient is restarted on the amiodarone. I may continue to hold off on the metoprolol. 2. Atherosclerosis of [place] coronary artery of [place] heart without angina pectoris: Currently the patient has no specific symptoms of coronary insufficiency. May continue on the other current medications. 3. Essential hypertension: Blood pressure is in the low normal range.. May continue on the current medication. 4. Aortic valve insufficiency, etiology of cardiac valve disease unspecified: The aortic regurgitation appears to be trace. Patient does not require any specific intervention at this point 5. Type 2 diabetes mellitus without complication, without long-term current use of insulin: May continue on the current management. 6. Intermittent atrial fibrillation: Patient may be restarted on the Eliquis. 7. Chronic anticoagulation: Eliquis may be restarted. 8. Kidney disease, chronic, stage IV (GFR 15-29 ml/min): Kidney function seems to be stable 9. 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 May be appropriate to put her on an event monitor to evaluate for any spontaneous bradycardia arrhythmia. Appointment the [facility] in a month. PDMP PDMP Reviewed: Not Reviewed Attestations 2 Medical Necessity Statement*: Disposition as per the primary Coding Level of Care Code 64929 Diagnoses Bradycardia R00.1 Atherosclerosis of [place] coronary artery of [place] heart without angina pectoris I25.10 [place] vs. 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
--- NOTE | 2025-04-30 11:52 | PC.SOCIAL ---
IMM Updated Updated pt on IMM. No questions voiced. Provided pt a copy. Initialed, dated, & timed a copy & placed in chart.
--- NOTE | 2025-04-30 13:12 | PC.NURSE ---
Discharge conditions met: desk monitor arrived. Nurse activated device and attached to patient. Verified it is monitoring correctly on accompanied phone. NUrse educated patient on device function and maintenance. Walked delivered by [facility] Meds to bed delivered by in house pharmacy- amiodarone and lasix.
--- NOTE | 2025-04-30 13:14 | PC.NURSE ---
Patient discharged. Educated patient and on new appointments made with primary doctor. New and changed medications. Heart monitor. Walker. IV removed. Meds were delivered by in house pharmacy. Taken out in wheelchair, accompanied by .
--- NOTE | 2025-04-30 14:00 | PM.DCS ---
Discharge Providers Date of Admission: 04/28/25 13:20 Date of Discharge: April 30, 2025 Attending Provider at Admission: Dania Holt MD Attending Provider at Discharge: Rae Pryor MD Primary Care Provider: DIONI Bruno Diagnoses at Discharge Discharge Diagnosis 1. Bradycardia: 2. Atherosclerosis of cadd[place] coronary artery of c[place] heart without angina pectoris: 3. Essential hypertension: 4. Aortic valve insufficiency, etiology of cardiac valve disease unspecified: 5. Type 2 diabetes mellitus without complication, without long-term current use of insulin: 6. Intermittent atrial fibrillation: 7. Chronic anticoagulation: 8. Kidney disease, chronic, stage IV (GFR 15-29 ml/min): 9. 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 This patient is known to have atrial fibrillation and had a cardioversion in January of last year when she presented with atrial fibrillation rapid ventricular rate. She was placed on amiodarone 200 mg p.o. daily and metoprolol 50 mg p.o. twice daily. In the emergency room, she was given IV atropine which increased her heart rate in the 40s. Then she was started on IV dopamine which was able to be weaned off the next day. Her heart rate then was maintained in the 50s to 60s. P.o. amiodarone was resumed this morning which the patient tolerated. Her creatinine remains at baseline of 2.1. She was noted to have mild hyperkalemia, discontinued losartan and potassium supplementation for this reason. Lasix increased to 40 mg p.o. daily. Patient has been recommended to follow-up with her prior primary care provider within the week to recheck her electrolytes. In the interim for blood pressure control amlodipine 10 mg daily has been added with discontinuation of losartan. Additionally metoprolol will be discontinued at discharge. Patient is being discharged with an event monitor today per cardiology recommendations. She was chest pain-free during the entire admission course. Physical Exam Narrative: General: No acute distress, AO x3 HEENT: PERRLA, pupils bilaterally equal and reactive, pallors not present Chest: Normal vesicular breath sounds, no added sounds, equal good air entry bilaterally CVS: S1-S2 regular, no murmurs, no tachycardia, no gallops, no rubs Abdomen: Soft, nontender, no organomegaly, bowel sounds present Neuro: No focal deficits, no facial deformity, AO x3, power 5/5 in all limbs Discharge Data Studies Completed and Pending Completed Studies During Hospitalization Category Date Time Status XR chest 1V portable [id number] Stat Exams 04/28/25 10:50 Completed CV. echo complete* [id number] Routine Ultrasound 04/29/25 06:13 Completed Radiology Impressions Chest X-Ray 04/28/25 10:50 Impression: 1. Patchy opacity left hilum which probably represents post radiation scarring. 2. Cardiomegaly and atherosclerosis. Laboratory Results WBC 9.76 10^3/uL (3.29-11.43) 04/30/25 04:40 RBC 3.98 10^6/uL (3.85-5.65) 04/30/25 04:40 Hgb 12.00 g/dL (11.27-16.99) 04/30/25 04:40 Hct 37.9 % (36-47) 04/30/25 04:40 MCV 95.2 fl (85-98) 04/30/25 04:40 MCH 30.2 pg (27-33) 04/30/25 04:40 MCHC 31.7 g/dL (30-55) 04/30/25 04:40 RDW 13.9 % (12.1-15.1) 04/30/25 04:40 Plt Count 91 10^3/cmm (157-399) L 04/30/25 04:40 MPV 11.0 fL (7.4-10.4) H 04/30/25 04:40 Neut % (Auto) 82.9 % 04/30/25 04:40 Lymph % (Auto) 8.7 % 04/30/25 04:40 [place] % (Auto) 5.6 % 04/30/25 04:40 Eos % (Auto) 0.9 % 04/30/25 04:40 Baso % (Auto) 0.3 % 04/30/25 04:40 Neut # (Auto) 8.08 10^3/uL (1.8-7.7) H 04/30/25 04:40 Lymph # (Auto) 0.9 10^3/uL (0.8-4.8) 04/30/25 04:40 [place] # (Auto) 0.6 10^3/uL (0.2-0.9) 04/30/25 04:40 Eos # (Auto) 0.1 10^3/uL (0.0-0.8) 04/30/25 04:40 Baso # (Auto) 0.0 10^3/uL (0.0-0.1) 04/30/25 04:40 Nucleated RBC % (auto) 0 % 04/30/25 04:40 Nucleated RBCs # 0.0 /100WBC 04/30/25 04:40 Sodium 133 mmol/L (136-145) L 04/30/25 04:40 Potassium 5.4 mmol/L (3.5-5.1) H 04/30/25 04:40 Chloride 103 mmol/L (98-107) 04/30/25 04:40 Carbon Dioxide 21 mmol/L (22-29) L 04/30/25 04:40 Anion Gap 14.4 (5-19) 04/30/25 04:40 BUN 52 mg/dL (8-23) H 04/30/25 04:40 Creatinine 2.1 mg/dL (0.5-0.9) H 04/30/25 04:40 GFR Calculation 23.4 mL/min (90-130) L 04/30/25 04:40 Glucose 112 mg/dL (65-115) 04/30/25 04:40 Calculated Osmolality 291 mOsm/kg (285-295) 04/30/25 04:40 Calcium 9.2 mg/dL (8.5-10.5) 04/30/25 04:40 Phosphorus 3.2 mg/dL (2.5-4.5) 04/29/25 06:37 Magnesium 1.6 mg/dL (1.7-2.3) L 04/29/25 06:37 Total Bilirubin 0.5 mg/dL (0.15-1.2) 04/30/25 04:40 AST 10 U/L (0-32) 04/30/25 04:40 ALT 17 U/L (0-33) 04/30/25 04:40 Alkaline Phosphatase 42 U/L (35-105) 04/30/25 04:40 Troponin T Baseline 47 ng/L (0-10) H 04/28/25 11:20 Troponin T 120 Minute 46.02 ng/L (0-10) H 04/28/25 13:44 Delta Troponin T -0.98 ABS# (0-10) L 04/28/25 13:44 Troponin T Hi Sens 6Hr 52.98 ng/L (0-10) H 04/28/25 17:57 Troponin T Hi Sens 6Hr Delta 5.98 ng/L (0-12) 04/28/25 17:57 NT-Pro-B Natriuret Pep 1250 pg/mL (0-125) H 04/28/25 11:20 Total Protein 5.1 g/dL (6.6-8.7) L 04/30/25 04:40 Albumin 3.2 g/dL (3.5-5.2) L 04/30/25 04:40 Globulin 1.9 g/dL (1.3-4.6) 04/30/25 04:40 TSH 4.04 uIU/mL (0.27-4.20) 04/28/25 11:20 Urine Color Yellow (Yellow) 04/28/25 20:55 Urine Appearance Clear (CLEAR) 04/28/25 20:55 Urine pH 5.0 (5-7) 04/28/25 20:55 Ur Specific [place] 1.014 (1.005-1.030) 04/28/25 20:55 Urine Protein Negative (Negative) 04/28/25 20:55 Urine Glucose (UA) Negative (Normal) 04/28/25 20:55 Urine Ketones Negative (Negative) 04/28/25 20:55 Urine Blood Negative (Negative) 04/28/25 20:55 Urine Nitrate Negative (Negative) 04/28/25 20:55 Urine Bilirubin Negative (Negative) 04/28/25 20:55 Urine Urobilinogen 0.2 mg/dL (Negative) 04/28/25 20:55 Ur Leukocyte Esterase Negative (Negative) 04/28/25 20:55 Urine RBC 0-2 /hpf (0-2) 04/28/25 20:55 Urine WBC 0-5 /hpf (0-5) 04/28/25 20:55 Ur Squamous Epith Cells 0-5 /hpf (0-5) 04/28/25 20:55 Amorphous Sediment Not Reportable 04/28/25 20:55 Urine Bacteria None seen /hpf (NONE) 04/28/25 20:55 Hyaline Casts 3.30 /lpf 04/28/25 20:55 Vitals Last Vital Signs Temp 97.7 F 04/30/25 13:08 Pulse 76 04/30/25 13:08 Resp 16 04/30/25 13:08 BP 153/92 04/30/25 13:08 Pulse Ox 92 04/30/25 13:08 O2 Del Method Room Air 04/30/25 11:45 O2 Flow Rate 1 04/30/25 08:15 Discharge Plan Discharge Patient Disposition: Home Condition: Stable Prescriptions: New amlodipine 10 mg tablet 10 mg PO DAILY 30 Days Qty: 30 0RF Continued aspirin 81 mg tablet,delayed release (DR/EC) 81 mg PO QAM nitroglycerin 0.4 mg tablet, sublingual 0.4 mg sublingual Q5M PRN (Reason: chest pain) Qty: 25 2RF Rx Instructions: do not exceed 3 doses per episode ([facility]) Diabetic Shoes See Rx Instructions .ROUTE .MEDSUPPLY Qty: 1 0RF Rx Instructions: As directed, with 3 pairs of inserts J P & O ([facility]) pen needle, diabetic [Comfort EZ Pen Perry] 32 gauge x 5/16 needle See Rx Instructions .Route Qty: 100 0RF Rx Instructions: daily ([facility]) PORTABLE OXYGEN CONCENTRATOR AND SUPPLIES See Rx Instructions .Route .MEDSUPPLY Qty: 1 0RF Rx Instructions: As directed ([facility]) diabetic shoes with 3 inserts See Rx Instructions .Route .MEDSUPPLY Qty: 1 0RF Rx Instructions: As directed to the shoe guys ([facility]) Auto-Titrating CPAP Device See Rx Instructions .Route Qty: 1 0RF Rx Instructions: 6-14cm ([facility]) electric powerchair See Rx Instructions .Route .MEDSUPPLY Qty: 1 0RF Rx Instructions: As directed citalopram 10 mg tablet See Rx Instructions .ROUTE .COMPLEX 90 Days Qty: 90 0RF Dose Instruction: TAKE ONE TABLET BY MOUTH DAILY for 30 days Rx Instructions: TAKE ONE TABLET BY MOUTH DAILY for 90 days nystatin 100,000 unit/gram ointment 1 applic topical TID Qty: 30 5RF (DME) 2 wheeled walker See Rx Instructions .Route .MEDSUPPLY Qty: 1 0RF Rx Instructions: Use daily (DME) blood sugar diagnostic Strip See Rx Instructions .Route Qty: 100 0RF Rx Instructions: use to check blood sugars once daily (DME) lancets [Accu-Chek Softclix Lancets] Misc See Rx Instructions .Route Qty: 200 0RF Rx Instructions: use to check blood sugar once daily (DME) Diabetic Shoes and 3 inserts See Rx Instructions .Route .MEDSUPPLY Qty: 1 0RF Rx Instructions: As directed by HOME (DME) talavera balance brace, right foot See Rx Instructions .Route .MEDSUPPLY Qty: 1 0RF Rx Instructions: As directed [facility] [place] cholecalciferol (vitamin D3) 1,250 mcg (50,000 unit) capsule See Rx Instructions .ROUTE .COMPLEX Qty: 12 1RF Dose Instruction: TAKE ONE CAPSULE BY MOUTH EVERY monday AT 9am Rx Instructions: TAKE ONE CAPSULE BY MOUTH EVERY Monday AT 9am spironolactone 25 mg tablet See Rx Instructions .ROUTE .COMPLEX Qty: 180 0RF Dose Instruction: TAKE ONE TABLET BY MOUTH TWICE DAILY Rx Instructions: TAKE ONE TABLET BY MOUTH TWICE DAILY amiodarone 200 mg tablet See Rx Instructions .ROUTE .COMPLEX Qty: 90 1RF Dose Instruction: TAKE ONE TABLET BY MOUTH DAILY Rx Instructions: TAKE ONE TABLET BY MOUTH DAILY Eliquis 5 mg tablet See Rx Instructions .ROUTE .COMPLEX Qty: 60 1RF Dose Instruction: TAKE ONE TABLET BY MOUTH TWICE DAILY Rx Instructions: TAKE ONE TABLET BY MOUTH TWICE DAILY rosuvastatin 40 mg tablet 40 mg PO DAILY Rx Instructions: TAKE ONE TABLET BY MOUTH DAILY for 90 DAYS biotin 10,000 mcg capsule 10,000 mcg PO DAILY Rx Instructions: Take by mouth daily. cetirizine [Zyrtec] 10 mg Tablet 10 mg PO DAILY PRN (Reason: Allergy Symptoms) pantoprazole 40 mg tablet,delayed release (DR/EC) 40 mg PO DAILY Changed furosemide 20 mg tablet 40 mg PO DAILY 90 Days Qty: 90 0RF Held losartan 100 mg tablet 100 mg PO DAILY Qty: 90 3RF Hold Instructions: Resume on 05/12/25. Discontinued potassium chloride [Klor-Con M20] 20 mEq tablet,ER particles/crystals 20 meq PO DAILY 90 Days Qty: 90 1RF metoprolol tartrate 50 mg tablet 50 mg PO BID Qty: 180 3RF Engineering Technician Parking OK for DC: Cardiology Discharge Order = DC NOW: Discharge Order (Routine); Ordered 04/30/25 Ordered By: Rae Pryor Other Ambulatory Orders: MCT/Event Monitor 21 Days (Routine) Timeframe: 1 Day Facility: [facility] - Location: Radiology Ordered By: Rae Pryor Referrals: Teresa Clifford FNP [Primary Care Provider, Family Practice] - 05/08/25 1:00 pm Referral Note: hospital discharge follow up for bradycardia and hyperkalemia. Stopped metoprolol and held losartan. Started amlodipine 10 instead. Please reassess with these medication changes Discharge Diet: Cardiac Discharge Activity: Resume usual activity Patient Instructions: A-fib (Atrial Fibrillation) (DC), Chronic Kidney Disease (DC), Bradycardia (DC), Opioid Safety, Patient Portal & Trudi Instructions Discharge Attestations Time Spent in Discharge Care*: greater than 30 min Quality Metrics Clinical Quality Measures [ No reported AMI, CVA or VTE this stay] Coding Level of Care Code Acute Code for Chg Fwd Diagnoses Bradycardia R00.1 Atherosclerosis of [place] coronary artery of [place] heart without angina pectoris I25.10 [place] vs. 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
== END 2025-04-30 13:00 | disposition home or self-care (01) | DRG 309 ==
LOC: ER 12:35 → ER IP 13:20 → ICU 14:38
PROVIDERS: Internal Medicine Cardiovascular Disease; Admitting Provider Hospitalist; Emergency Provider Emergency Medicine; PCP Registered Nurse; Visit Provider Student in an Organized Health Care Education/Training Program
DX: R00.1 Bradycardia, unspecified (principal); M35.1 Other overlap syndromes; N18.4 Chronic kidney disease, stage 4 (severe); Z68.42 Body mass index [BMI] 45.0-49.9, adult; I48.0 Paroxysmal atrial fibrillation; I25.10 Atherosclerotic heart disease of native coronary artery without angina pectoris; I12.9 Hypertensive chronic kidney disease with stage 1 through stage 4 chronic kidney disease, or unspecified chronic kidney disease; E11.22 Type 2 diabetes mellitus with diabetic chronic kidney disease; J43.2 Centrilobular emphysema; E87.5 Hyperkalemia; G47.33 Obstructive sleep apnea (adult) (pediatric); E78.5 Hyperlipidemia, unspecified; R26.89 Other abnormalities of gait and mobility; R29.6 Repeated falls; E66.01 Morbid (severe) obesity due to excess calories; G25.2 Other specified forms of tremor; L30.4 Erythema intertrigo; K21.9 Gastro-esophageal reflux disease without esophagitis; Z96.651 Presence of right artificial knee joint; G89.29 Other chronic pain; M17.0 Bilateral primary osteoarthritis of knee; I35.1 Nonrheumatic aortic (valve) insufficiency; Z79.82 Long term (current) use of aspirin; Z79.01 Long term (current) use of anticoagulants; Z87.891 Personal history of nicotine dependence; Z95.828 Presence of other vascular implants and grafts; Z95.5 Presence of coronary angioplasty implant and graft; Z85.118 Personal history of other malignant neoplasm of bronchus and lung; Z92.3 Personal history of irradiation; Z92.21 Personal history of antineoplastic chemotherapy
CPT/HCPCS: 36415; 71045; 80048; 80053; 81001; 83735; 83880; 84100; 84443; 84484; 85025; 93005; 93306; 96365; 96366; 96372; 96375; 99213; 99285; J0461; J1265; J1650; J2060; J9999

== ENCOUNTER 2025-05-06 01:29 | Inpatient (IN) | payer MEDICARE, SELFPAY ==
[2025-05-06] VITALS (19 sets, daily range): BP systolic 77–149; BP diastolic 40–110; PULSE 79–132; RESP 16–25; TEMP 36.1–36.8; O2SAT 94–98; BMI 45.0
--- OUTSIDE RECORDS SUMMARY | 2025-05-06 01:16 | XMS_ITS | Encounter Summary ---
Author Organization [facility] Address [address] [facility] Attn: [place] [address] Care Team Providers Care Sequins Winder Name Role Phone Teresa Clifford Primary Care Provider [phone] Encounter Details Date Type Department Care Team (Latest Contact Info) Description 03/20/1992 Emergency Social History Tobacco Use Types Packs/Day Years Used Date Smoking Tobacco: Never Assessed Comments Unknown Sex and Gender Information Value Date Recorded Sex Assigned at Not on file Legal Sex Female 10:11 AM MARKETING ENGINEER Gender Identity Not on file Sexual Orientation Not on file documented as of this encounter Plan of Treatment Not on file documented as of this encounter Visit Diagnoses Not on filedocumented in this encounter Care Teams Sequins Winder Relationship Specialty Start Date End Date Teresa Clifford FNP [address] [place] [phone] PCP - General NURSE PRACTITIONER 06/02/17 documented as of this encounter
--- OUTSIDE RECORDS SUMMARY | 2025-05-06 01:16 | XMS_ITS | Encounter Summary ---
Author Organization Address 5 [facility] Attn: Epic Prelude ADT [place] [address] Care Team Providers Care Information Operator Name Role Phone Teresa Clifford Primary Care Provider Encounter Details Date Type Department Care Team (Late st Contact Info) Description 05/07/1992 Outpatient Historical Pedro Jennings MD [address] [place] [phone] Social History Tobacco Use Types Packs/Day Years Used Date Smoking Tobacco: Never Assessed Comments Unknown Sex and Gender Information Value Date Recorded Sex Assigned at Not on file Legal Sex Female 10:11 AM X RAY NURSE Gender Identity Not on file Sexual Orientation Not on file documented as of this encounter Plan of Treatment Not on file documented as of this encounter Visit Diagnoses Not on filedocumented in this encounter Care Teams Information Operator Relationship Specialty Start Date End Date Teresa Clifford FNP [address] [place] [address] PCP - General NURSE PRACTITIONER 06/02/17 documented as of this encounter
--- OUTSIDE RECORDS SUMMARY | 2025-05-06 01:16 | XMS_ITS | Encounter Summary ---
Author Organization [facility] Address [address] [facility] Attn: Epic Prelude ADT [place] [address] Care Team Providers Care Crewman Main Battle Tank Name Role Phone Teresa Clifford Primary Care Provider Encounter Details Date Type Department Care Team (Latest Contact Info) Description 04/07/1992 Emergency Andrews Honeycutt MD [facility] [place] [address] Social History Tobacco Use Types Packs/Day Years Used Date Smoking Tobacco: Never Assessed Comments Unknown Sex and Gender Information Value Date Recorded Sex Assigned at Not on file Legal Sex Female 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
--- OUTSIDE RECORDS SUMMARY | 2025-05-06 01:16 | XMS_ITS | Clinical Summary ---
Author Organization [facility] Address [address] [facility] [address] [place] [address] Phone Care Team Providers Care Vault Attendant Name Role Phone Teresa Clifford ASSEMBLY RIVETER Primary Care Provider Social History Tobacco Use Types Packs/Day Years Used Date Smoking Tobacco: Never Assessed Comments Unknown Sex and Gender Information Value Date Recorded Sex Assigned at Not on file Legal Sex Female 10:11 AM GROCERY SACKER Gender Identity Not on file Sexual Orientation [...] MEDICARE PART A AND B Care Teams Vault Attendant Relationship Specialty Start Date End Date Teresa Clifford FNP [address] [place] [address] PCP - General NURSE PRACTITIONER 06/02/17
--- OUTSIDE RECORDS SUMMARY | 2025-05-06 01:16 | XMS_ITS | Encounter Summary ---
Author Organization [facility] Address [facility] Attn: Epic Prelude ADT [place] [address] Care Team Providers Care Steelworker Name Role Phone Teresa Clifford Primary Care Provider [phone] Encounter Details Date Type Department Care Team (Latest Contact Info) Description 12/12/1991 Emergency Ray Munguia MD NO ADDRESS ON FILE Social History Tobacco Use Types Packs/Day Years Used Date Smoking Tobacco: Never Assessed Comments Unknown Sex and Gender Information Value Date Recorded Sex Assigned at Not on file Legal Sex Female 10:11 AM COCONUT BOILER Gender Identity Not on file Sexual Orientation Not on file documented as of this encounter Plan of Treatment Not on file documented as of this encounter Visit Diagnoses Not on filedocumented in this encounter Care Teams Steelworker Relationship Specialty Start Date End Date Teresa Clifford FNP [address] [place] [phone] PCP - General NURSE PRACTITIONER 06/02/17 documented as of this encounter
--- OUTSIDE RECORDS SUMMARY | 2025-05-06 01:16 | XMS_ITS | Encounter Summary ---
Author Organization [facility] Address [address] [facility] Attn: Epic Prelude ADT [place] [address] Care Team Providers Care Fudger Name Role Phone Teresa Clifford Primary Care Provider [phone] Encounter Details Date Type Department Care Team (Latest Contact Info) Description 12/09/1991 Emergency Andrews Honeycutt MD [facility] [place] [address] Social History Tobacco Use Types Packs/Day Years Used Date Smoking Tobacco: Never Assessed Comments Unknown Sex and Gender Information Value Date Recorded Sex Assigned at Not on file Legal Sex Female 10:11 AM DELIVERER FOOD Gender Identity Not on file Sexual Orientation Not on file documented as of this encounter Plan of Treatment Not on file documented as of this encounter Visit Diagnoses Not on filedocumented in this encounter Care Teams Fudger Relationship Specialty Start Date End Date Teresa Clifford FNP [address] [place] [address] PCP - General NURSE PRACTITIONER 06/02/17 documented as of this encounter
--- OUTSIDE RECORDS SUMMARY | 2025-05-06 01:16 | XMS_ITS | Encounter Summary ---
Author Organization [facility] Address [address] [address] Phone Care Team Providers Care Lip And Gate Builder Name Role Phone Unavailable Primary Care Provider Unavailabl e Reason for Referral * Consultation (Routine) - Authorized Specialty Diagnoses / Procedures Referred By Lew franklin Referred To Contact Nephrology Diagnoses Chronic kidney disease, Stage IV (severe) (HCC) Teresa Clifford NP [address] [place] [address] Phone: tel: fax: Toro Silverio MD [address] [address] Phone: tel: fax: Referral ID Status Reason Start Date Expiration Date Visits Requested Visits Authorized [id number] Authorized Consult and Treat 04/23/2025 04/23/2026 1 1 Encounter Details Date Type Department Care Team (Latest Contact Info) Description 04/23/2025 Transcribe Orders [facility] [address] [address] Teresa Clifford NP [address] [place] [address] Chronic kidney disease, Stage IV [...]
--- OUTSIDE RECORDS SUMMARY | 2025-05-06 01:16 | XMS_ITS | Encounter Summary ---
Author Organization [facility] Address [address] [facility] Attn: Epic Prelude ADT [place] [address] Care Team Providers Care Diesel Machinist Name Role Phone Teresa Clifford Primary Care Provider Encounter Details Date Type Department Care Team (Latest Contact Info) Description 04/03/1992 Emergency Andrews Honeycutt MD [facility] [place] [address] Social History Tobacco Use Types Packs/Day Years Used Date Smoking Tobacco: Never Assessed Comments Unknown Sex and Gender Information Value Date Recorded Sex Assigned at Not on file Legal Sex Female 10:11 AM 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
--- OUTSIDE RECORDS SUMMARY | 2025-05-06 01:16 | XMS_ITS | Encounter Summary ---
Author Organization [facility] Address [address] [place] [address] Care Team Providers Care Ruby On Rails Developer Name Role Phone Teresa Clifford Primary Care Provider Encounter Details Date Type Department Care Team (Late st Contact Info) Description 06/02/2017 Ancillary Orders [facility] Admitting [address] [place] [address] Teresa Clifford FNP [address] [place] [phone] Right wrist pain Social History Tobacco Use Types Packs/Day Years Used Date Smoking Tobacco: Never Assessed Comments Unknown Sex and Gender Information Value Date Recorded Sex Assigned at Not on file Legal Sex Female 10:11 AM PLANT TECHNICAL SPECIALIST Gender Identity Not on file Sexual Orientation Not on file documented as of this encounter Plan of Treatment Not on file documented as of this encounter Results * XR WRIST 3+ VW RIGHT (06/02/2017 12:25 PM PLANT TECHNICAL SPECIALIST) Anatomical Region Laterality Modality Wrist / Hand Computed Radiogr aphy 06/02/2017 12:2 6 PM PLANT TECHNICAL SPECIALIST Impressions 06/02/2017 12:51 PM PLANT TECHNICAL SPECIALIST IMPRESSION: Please see below. Exam: XR WRIST 3+ VW RIGHT Date/Time of Exam: 06/02/2017 12:25 PM Reason For Exam: Right wrist pain. Comparison: None. FINDINGS: PA, lateral and oblique projections are unremarkable. Narrative Procedure Note Rafa Lino, DO - 06/02/2017 IMPRESSION: Please see below. [...] forearm documented in this encounter Care Teams Ruby On Rails Developer Relationship Specialty Start Date End Date Teresa Clifford FNP [address] [place] [phone] PCP - General NURSE PRACTITIONER 06/02/17 documented as of this encounter
--- OUTSIDE RECORDS SUMMARY | 2025-05-06 01:16 | XMS_ITS | Encounter Summary ---
Author Organization [facility] Address 5 [facility] Attn: Epic Prelude ADT [place] [address] Care Team Providers Care Food Preservation Scientist Name Role Phone Teresa Clifford Primary Care Provider Encounter Details Date Type Department Care Team (Late st Contact Info) Description 04/28/1992 Outpatient Historical Candido Marlow MD [address] [place] [phone] Social History Tobacco Use Types Packs/Day Years Used Date Smoking Tobacco: Never Assessed Comments Unknown Sex and Gender Information Value Date Recorded Sex Assigned at Not on file Legal Sex Female 10:11 AM STONE BREAKER Gender Identity Not on file Sexual Orientation Not on file documented as of this encounter Plan of Treatment Not on file documented as of this encounter Visit Diagnoses Not on filedocumented in this encounter Care Teams Food Preservation Scientist Relationship Specialty Start Date End Date Teresa Clifford FNP [address] [place] [address] PCP - General NURSE PRACTITIONER 06/02/17 documented as of this encounter
--- OUTSIDE RECORDS SUMMARY | 2025-05-06 01:16 | XMS_ITS | Clinical Summary ---
Author Organization [employer] [email or web address] Address [address] [place] [address] Phone Care Team Providers Care Solar Panel Installation Supervisor Name Role Phone Unavailable Primary Care Provider Unavailabl e Encounters Date Type Department Care Team Description 04/23/2025 Telephone [employer] [address] [place] [address] Toro Silverio MD 04/23/2025 Transcribe Orders Nancy [facility], [email or web address] [address] [place] [address] Teresa Clifford NP Chronic kidney [...] 04/23/2025 Diabetes: Visual Foot Exam 04/23/2025 Insurance [facility] [place] MCR Adv ([id number])
--- OUTSIDE RECORDS SUMMARY | 2025-05-06 01:30 | XMS_ITS | Clinical Summary ---
[facility] Address [address] [facility] Attn: Epic Prelude ADT LORI STOVALL [address] Care Team Providers Care Repairer Resistance Welding Machines Name Role Phone Venessa Teresa WHEATLEY Primary [...] STL ABSTRACTION Provider, Abstract 03/25/2025 Results Follow-Up [facility] [place] [address] [place] [phone] Danielle Pandey DO PATHOLOGY 03/20/2025 2:19 PM CDT Anesthesia Event [facility] [address] [place] [phone] Nadeem Peralta MD Le, Max Peres, AA 03/20/2025 1:20 PM CDT - 03/20/2025 1:[address] [facility] [address] [place] [phone] Danielle Pandey DO ESOPHAGOGASTRODUODENOSCOPY 03/20/2025 11:21 AM CDT - 03/20/2025 3:36 PM CDT Hospital Encounter 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 GI Patient Name: Janet Pillai Procedure [...] This is a 70 year old female. [address] [place] [address] Danielle Conte DO GI PROCEDURE ORDERABLE S Final Result * PATHOLOGY (03/20/2025 2:28 PM CDT) CASE REPORT Surgical Pathology Report Case: [id number] Authorizing Provider: Danielle Pandey, Collected: 03/20/2025 02:28 PM DO Ordering Location: [facility] Received: 03/21/2025 07:05 AM Endoscopy Pathologist: Ean Davis MD Specimen: Small Intestine, duodenum 11:34 AM CDT [facility] FINAL DIAGNOSIS A. Small intestine, duodenum, polyps - adenomatous polyp - no high grade dysplasia or malignancy identified. REV:CMM Ean Davis MD [id number] 11:34 AM CDT [facility] at 1134 CDT GROSS DESCRIPTION A. Received in formalin labeled Pillai -duodenum polyps are multiple fragments of tissue, 2.0 x 1.5 x 0.2 cm in aggregate. The specimen is submitted in toto in A1. Grossed by: Hilary Taveras MS, PA ([facility]) 11:34 AM CDT [facility] OPERATIVE PROCEDURE 1: ESOPHAGOGASTRODUODENOSCO PY 5 11:34 AM CDT [facility] CLINICAL INFORMATION Polyp of stomach and duodenum Benign polyp of duodenum 11:34 AM T [facility] COMMENT The [employer] Surgical voice-activated dictation system may have been used [...] determined by the Diagnostic Immunohistochemistry Laboratory of [facility] in compliance with CLIA'88 regulations. Some of these tests rely on the use of analyte specific reagents and are subject to specific labeling requirements by the FDA. All controls show appropriate reactivity. This testing was developed by the Diagnostic Immunohistochemistry Laboratory of [facility]. It has not been cleared or approved by the FDA. The FDA has determined that such clearance or approval is not necessary. 11:34 AM CDT [facility] Tissue (Small Intestine) Collection / Unknown 03/20/2025 2:28 PM CDT 03/21/2025 7:05 AM CDT Comment:Verified by marie / Teresa Toussaint FNP us Danielle Conte DO PATHOLOGY/CYTOLOGY ORD ERABLES Final Result [id number] [address] [address] [place] [address] * DIABETES EYE EXAM (09/08/2020 12:00 AM CDT) [facility] Scanning HEALTH MAINTENANCE Final Result from Last 3 Months or Most Recently Relevant to Health Maintenance [place] [place] [id number] BCBS MEDICARE HMO Advance Directives For more information, please contact: [phone] * Full Code (Latest Code Status on File) Date Activated Date Inactivated Comments 03/20/2025 12:13 PM 03/20/2025 5:36 PM Care Teams Repairer Resistance Welding Machines Relationship Specialty Start Date End Date Teresa Clifford FNP [address] [place] [phone] PCP - General NURSE PRACTITIONER 06/02/17
--- NOTE | 2025-05-06 01:33 | XRR_ITS ---
PROCEDURE INFORMATION: Exam: XR Chest Exam date and time: 05/06/2025 1:33 AM Age: 70 years old Clinical indication: Shortness of breath; Prior surgery; Surgery date: 1-6 months; Surgery type: Port-a-cath, coronary stents; Additional info: SOB TECHNIQUE: Imaging protocol: Radiologic exam of the chest. Views: 1 view. COMPARISON: CR XR chest 1V portable [id number] 04/28/2025 11:04 AM FINDINGS: Tubes, catheters and devices: Right Port-A-Cath terminates in the SVC. Lungs: The lung bases are not included in the field of view. Pleural spaces: No pneumothorax. Heart/Mediastinum: Cardiomegaly. Bones/joints: Unremarkable. XR/XR chest 1V portable [id number] IMPRESSION: No definite pneumonia. The lung bases are not fully included in the field of view.
--- NOTE | 2025-05-06 01:34 | ECG_ITS ---
[employer] Test Date: 2025-05-06 Pat Name: Janet Pillai Department: Room: 106 Gender: Female Program Analyst: : 1955 Requested By: Sampson Sifuentes Order Number: [id number] Huitron MD: Lavon Sotomayor M.D. Measurements Intervals [place] Rate: 131 P: 265 TN: 189 QRS: -67 QRSD: 146 T: 73 QT: 334 QTc: 495 Interpretive Statements SINUS TACHYCARDIA VERSUS ECTOPIC ATRIAL TACHYCARDIA RIGHT BUNDLE BRANCH BLOCK [120+ ms QRS DURATION, UPRIGHT V1, 40+ ms S IN I/aVL/V4/V5/V6] LEFT ANTERIOR FASCICULAR BLOCK [QRS AXIS <= -45, QR IN I, RS IN II] LEFT VENTRICULAR HYPERTROPHY AND ST-T CHANGE [VOLTAGE CRITERIA PLUS ST/T ABNORMALITY] ANTERIOR MYOCARDIAL INFARCTION , OF INDETERMINATE AGE [40+ ms Q WAVE AND/OR ST/T ABNORMALITY IN V3/V4] Compared to ECG 04/28/2025 15:05:44 RHYTHM NO LONGER SINUS BRADYCARDIA Electronically Signed On 05-11-2025 18:10:14 CHAIN MACHINE OPERATOR by Lavon Sotomayor M.D. [email or web address]
--- NOTE | 2025-05-06 01:39 | W.ED.SOB ---
HPI - SOB/Dyspnea General: Chief Complaint: Shortness of Breath/Dyspnea Stated Complaint: sob Source: patient and EMS Mode of arrival: EMS Limitations: no limitations History of Present Illness: HPI Narrative: 70-year-old female has a history of COPD chronic hypoxia chronic kidney disease, intermittent atrial fibs. Patient states that she has had increasing shortness of breath today she is also having increasing cough and sharp chest pains. Patient states she typically wears 1 to 2 L oxygen and had increased at 3-4 she is found to be tachycardic with EMS and is tachycardic here 130. Denies any worsening improving factors denies any vomiting Associated symptoms: Reports chest pain Related Data Home Medications ?Medication ?Instructions ?Recorded ?Confirmed aspirin 81 mg tablet,delayed 81 mg PO QAM 06/21/19 05/02/25 release rosuvastatin 40 mg tablet 40 mg PO DAILY 10/30/24 05/02/25 biotin 10,000 mcg capsule 10,000 mcg PO DAILY 04/28/25 05/02/25 cetirizine 10 mg tablet (Zyrtec) 10 mg PO DAILY PRN Allergy Symptoms 04/28/25 05/02/25 pantoprazole 40 mg tablet,delayed 40 mg PO DAILY 04/28/25 05/02/25 release Previous Rx's ?Medication ?Instructions ?Recorded Diabetic Shoes #1 ea 03/17/21 blood sugar diagnostic #100 ea 01/03/22 lancets (Accu-Chek Softclix #200 ea 01/03/22 Lancets) nitroglycerin 0.4 mg sublingual 0.4 mg sublingual Q5M PRN chest 02/24/22 tablet pain #25 tabs Diabetic Shoes and 3 inserts #1 ea 12/28/22 pen needle, diabetic 32 gauge x #100 ea 05/16/23 5/16 (Comfort EZ Pen [place]) PORTABLE OXYGEN CONCENTRATOR AND #1 ea 11/16/23 SUPPLIES CPAP (Auto-Titrating CPAP) #1 ea 02/12/24 diabetic shoes with 3 inserts #1 ea 04/03/24 talavera balance brace, right foot #1 ea 09/30/24 electric powerchair #1 ea 10/04/24 cholecalciferol (vitamin D3) 1,250 See Rx Instructions .Route 01/13/25 mcg (50,000 unit) capsule .COMPLEX #12 caps spironolactone 25 mg tablet See Rx Instructions .Route 02/25/25 .COMPLEX #180 tabs amiodarone 200 mg tablet See Rx Instructions .Route 03/28/25 .COMPLEX #90 tabs losartan 100 mg tablet 100 mg PO DAILY #90 tabs 04/07/25 Held on 04/30/25. Instructions: Resume on 05/12/25. citalopram 10 mg tablet See Rx Instructions .Route 04/22/25 .COMPLEX 90 days #90 tabs nystatin 100,000 unit/gram topical 1 applic topical TID #30 grams 04/22/25 ointment 2 wheeled walker #1 ea 04/23/25 apixaban 5 mg tablet (Eliquis) See Rx Instructions .Route 04/28/25 .COMPLEX #60 tabs amlodipine 10 mg tablet 10 mg PO DAILY 30 days #30 tabs 04/30/25 furosemide 20 mg tablet 40 mg (2 x 20 mg) PO DAILY 90 days 04/30/25 #90 tabs Allergies Allergy/AdvReac Type Severity Reaction Status Date / Time Sulfa (Sulfonamide Allergy Unknown Verified 05/06/25 01:38 Antibiotics) sulfamethoxazole (From Allergy itching Verified 05/06/25 01:38 Bactrim) trimethoprim (From Bactrim) Allergy itching Verified 05/06/25 01:38 Review of Systems Card: Reports: chest pain Resp: Reports: dyspnea [facility] ED PFSH: Medical History (Updated 05/06/25 @ 03:38 by Sampson Sifuentes MD) Dyslipidemia with low high density lipoprotein (HDL) cholesterol with hypertriglyceridemia due to type 2 diabetes mellitus History of cardiovascular stress test 12/2020 nl EKG response, nl myocardial perfusion with no evidence of ischemia Atrial fibrillation with rapid ventricular response History of cardioversion 01/[address] Solano, for difficult to control afib History of PFTs 06/17 moderate airflow obstruction with no significant response to bronchodilators History of Holter monitoring 06/16/2023-06/29/2023 baseline sinus daniel with 1st degree AVB, HR 41.4. Average was 76. Max was 144 bpm, no afib seen Mixed connective tissue disease Small cell lung cancer Port-A-Cath in place placed 08/[address] Kerr Former heavy cigarette smoker (20-39 per day) Quit in 2009 Aortic valve insufficiency, etiology of cardiac valve disease unspecified dx 10/14/02 Dr Kam Martinez, non-rheumatic Arthralgia of both knees Venous insufficiency of both lower extremities Opioid contract exists Obesity Chronic joint pain Anxiety and depression Hyperlipidemia Common migraine with intractable migraine Left Achilles tendinitis Back pain, lumbosacral Type 2 diabetes mellitus without complication, without long-term current use of insulin Essential hypertension COPD (chronic obstructive pulmonary disease) Gastroesophageal reflux disease without esophagitis Surgical History History of cataract surgery History of esophagogastroduodenoscopy (EGD) 10/2024 Dr Kerr with polypectomy/biopsy duodenum and antrum; 02/2025 at [facility] with polypectomy History of incision and drainage (04/2021) Left groin abscess by Dr Zaldivar History of bronchoscopy 07/2023 Bronch with BAL and EBUS sampling of [address] Hurst Hx of colonoscopy with polypectomy 05/2024 Dr Kerr; 02/2025 at [facility] with polypectomy Stented coronary artery 2 stents done 02/16/96 in [place] History of knee replacement 2010, right History of delivery Family History Other CAD (coronary artery disease) Cancer Diabetes Denies family history of Rheumatoid arthritis Lupus Hyperlipidemia Chronic kidney disease (CKD) Hypertension Stroke Social History Smoking and tobacco/nicotine status: former use of tobacco/nicotine (quit 2009) Quit status (tobacco/nicotine): has quit using Year quit tobacco: 2009 Former quit date comment: 3 ppd X 37 years Alcohol intake: never Substance/Drug Use: never Lives independently: No Household members: spouse Marital status: Current occupational status: unemployed Do you think of yourself as: Straight/Heterosexual Current gender identity: Female Physical Exam Const: COMMON NORMALS: patient oriented x3 GENERAL APPEARANCE: in distress NUTRITIONAL APPEARANCE: obese HENMT: COMMON NORMALS: normocephalic and atraumatic HEAD & SCALP: normocephalic and atraumatic Eye: COMMON NORMALS: conjunctivae normal CONJUNCTIVA: Yes conjunctivae normal Neck/C-Spine: COMMON NORMALS: full ROM and supple Chest: COMMONS NORMALS: normal inspection of the chest Resp: COMMON NORMALS: No retractions EFFORT & INSPECTION: Yes labored AUSCULTATION: wheezes Cardio: COMMON NORMALS: regular rhythm and No murmurs present (Cardio) RATE: tachycardic RHYTHM: regular rhythm GI: COMMON NORMALS: Normal to inspection, nondistended, normoactive bowel sounds present, Soft to palpation, non-tender and no masses PALPATION: Yes Soft to palpation Extremity: COMMON NORMALS: normal to inspection and full ROM Neuro: COMMON NORMALS: patient oriented x3, moves all extremities and no focal motor deficits Psych: COMMON NORMALS: mental status grossly normal, Normal thought process present and cooperative THOUGHT PROCESS: Normal thought process present Skin: COMMON NORMALS: no rashes or lesions noted and no wounds GENERAL SKIN EXAM: no rashes or lesions noted Course Vital Signs: Vital signs: Vital Signs Temperature 97.4 F L 05/06/25 01:29 Pulse Rate 120 H 05/06/25 03:00 Respiratory Rate 17 05/06/25 03:00 Blood Pressure 147/110 05/06/25 02:30 Pulse Oximetry 98 05/06/25 03:00 Oxygen Delivery Me thod Nasal Cannula 05/06/25 01:59 Oxygen Flow Rate 1 05/06/25 01:59 MDM - SOB/Dyspnea Medical Decision Making Patient presents for shortness of breath along with chest pain. Patient has multiple comorbidities including obesity, chronic anticoagulation, chronic kidney disease, COPD. Differential includes pneumonia, pulmonary emboli, acute coronary syndrome. Chest x-ray here showed no definite pneumonia does have a elevated white count 13 she has had a cough we will get blood cultures and started her on azithromycin and Rocephin. She has had atrial tachycardia here initial troponin is elevated at 420 compared to her baseline a week ago which was in the 40s. Does have chronic kidney disease creatinine here is 2.1 at her baseline. Does have a slightly elevated BNP. EKG here showed tachycardia no signs of ST elevation did review EKG with coroner technician Dr. Estrada and agrees there is no signs of STEMI. I did interpret the EKG myself which showed atrial tach heart rate [address] elevation QRS 146 QTc 411. Will start on heparin drip for NSTEMI. Patient could possibly still have PE as well she has had no hypotension here not able to do a CTA at this time due to her creatinine. I spoke to Dr. Camejo hospitalist will admit to cardiac stepdown. I did go over all this with patient and she understands agrees to plan Critical care time documented at 45 minutes The high probability of a clinically significant, sudden or life threatening deterioration of the patient's cv system(s) required my full and direct attention, intervention and personal management. The critical care time is as shown. This time is in addition to time spent performing any reported procedures but includes the following: [x] Data and vital sign review and interpretation [x] Patient assessment, examination and intervention [x] Documentation [x] Medication orders and management Medical Records I reviewed the patient's medical records. Lab Data I reviewed the patient's lab results. 05/06/25 02:07 05/06/25 02:01 Labs/Radiology: Radiology Impressions Chest X-Ray 05/06/25 01:33 IMPRESSION: No definite pneumonia. The lung bases are not fully included in the field of view. Laboratory Results WBC 13.02 10^3/uL (3.29-11.43) H 05/06/25 02:07 RBC 4.93 10^6/uL (3.85-5.65) 05/06/25 02:07 Hgb 15.00 g/dL (11.27-16.99) 05/06/25 02:07 Hct 46.3 % (36-47) 05/06/25 02:07 MCV 93.9 fl (85-98) 05/06/25 02:07 MCH 30.4 pg (27-33) 05/06/25 02:07 MCHC 32.4 g/dL (30-55) 05/06/25 02:07 RDW 13.5 % (12.1-15.1) 05/06/25 02:07 Plt Count 158 10^3/cmm (157-399) 05/06/25 02:07 MPV 10.4 fL (7.4-10.4) 05/06/25 02:07 Neut % (Auto) 75.3 % 05/06/25 02:07 Lymph % (Auto) 14.1 % 05/06/25 02:07 Wise % (Auto) 7.2 % 05/06/25 02:07 Eos % (Auto) 0.7 % 05/06/25 02:07 Baso % (Auto) 0.5 % 05/06/25 02:07 Neut # (Auto) 9.81 10^3/uL (1.8-7.7) H 05/06/25 02:07 Lymph # (Auto) 1.8 10^3/uL (0.8-4.8) 05/06/25 02:07 Wise # (Auto) 0.9 10^3/uL (0.2-0.9) 05/06/25 02:07 Eos # (Auto) 0.1 10^3/uL (0.0-0.8) 05/06/25 02:07 Baso # (Auto) 0.1 10^3/uL (0.0-0.1) 05/06/25 02:07 Nucleated RBC % (auto) 0 % 05/06/25 02:07 Nucleated RBCs # 0.0 /100WBC 05/06/25 02:07 PT 14.80 SECONDS (12.1-14.9) 05/06/25 02:07 INR 1.08 (0.8-1.2) 05/06/25 02:07 Specimen Type Arterial 05/06/25 01:50 Sample Site Brachial, left 05/06/25 01:50 ABG pH 7.47 (7.35-7.45) H 05/06/25 01:50 ABG pCO2 31.0 mmHg (35-45) L 05/06/25 01:50 ABG pO2 104.0 mmHg (80.0-100.0) H 05/06/25 01:50 ABG PO2/FiO2 Ratio 400 05/06/25 01:50 ABG HCO3 22.5 mmol/L (22-26) 05/06/25 01:50 ABG Base Excess -0.2 mmol/L (-2.0-2.0) 05/06/25 01:50 Frandy Test Pos 05/06/25 01:50 Hematocrit 46.7 % (37-47) 05/06/25 01:50 Hgb O2 Saturation 97.4 % (95-100) 05/06/25 01:50 Carboxyhemoglobin 0.8 %THgb (0.4-20.1) 05/06/25 01:50 Methemoglobin 0.5 % (0.4-1.5) 05/06/25 01:50 Total Hemoglobin 15.2 g/dL (12-16) 05/06/25 01:50 O2 Delivery Device Nc 05/06/25 01:50 O2 Liters/Min 1.0 % 05/06/25 01:50 FiO2 26.0 % 05/06/25 01:50 Flagsetter ID Bd 05/06/25 01:50 Sodium 139 mmol/L (136-145) 05/06/25 02:01 Potassium 4.3 mmol/L (3.5-5.1) 05/06/25 02:01 Chloride 100 mmol/L (98-107) 05/06/25 02:01 Carbon Dioxide 20 mmol/L (22-29) L 05/06/25 02:01 Anion Gap 23.3 (5-19) H 05/06/25 02:01 BUN 36 mg/dL (8-23) H 05/06/25 02:01 Creatinine 2.1 mg/dL (0.5-0.9) H 05/06/25 02:01 GFR Calculation 23.4 mL/min (90-130) L 05/06/25 02:01 Glucose 199 mg/dL (65-115) H 05/06/25 02:01 Calculated Osmolality 302 mOsm/kg (285-295) H 05/06/25 02:01 Calcium 9.3 mg/dL (8.5-10.5) 05/06/25 02:01 Total Bilirubin 0.3 mg/dL (0.15-1.2) 05/06/25 02:01 AST 17 U/L (0-32) 05/06/25 02:01 ALT 25 U/L (0-33) 05/06/25 02:01 Alkaline Phosphatase 58 U/L (35-105) 05/06/25 02:01 Troponin T Baseline 410 ng/L (0-10) H* 05/06/25 02:07 NT-Pro-B Natriuret Pep 36186 pg/mL (0-125) H 05/06/25 02:01 Total Protein 6.0 g/dL (6.6-8.7) L 05/06/25 02:01 Albumin 3.9 g/dL (3.5-5.2) 05/06/25 02:01 Globulin 2.1 g/dL (1.3-4.6) 05/06/25 02:01 Influenza A (PCR) Negative (Negative) 05/06/25 01:39 Influenza Type B (PCR) Negative (Negative) 05/06/25 01:39 RSV (PCR) Negative (Negative) 05/06/25 01:39 SARS-CoV-2 (PCR) Negative (Negative) 05/06/25 01:39 All radiology interpretation(s) finalized by discharge EKG Data EKG 1: I personally reviewed and interpreted this EKG as follows: EKG Interpretation Date: 05/06/25 EKG interpretation time: 01:34 Interpretation: atrial tach hr [address] elevation qrs 146 qtc 411 Critical Care Time Critical Care Time: Critical Care Time: Yes Total Critical Care Time: 45 Attestation: The high probability of a clinically significant, sudden or life threatening deterioration of the patient's cv system(s) required my full and direct attention, intervention and personal management. The critical care time is as shown. 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
[2025-05-06] MEDS: methylPREDNISolone sod succ 125 mg/2 mL INJ IV (01:41)
[2025-05-06] MEDS: dilTIAZem 5 mg/mL SDV 5 mL 10 MG IVP (01:45)
[2025-05-06 01:57] LABS: ABG PCO2 31.0 mmHg (35-45); ABG PH Result 7.47 (7.35-7.45); Arterial Blood Gas Hematocrit 46.7 % (37-47); Blood Gas Allen Test Pos; Blood Gas LPM 1.0 %; Blood Gas Operator Identificat BD; Blood Gas Sample Site Brachial, left; Blood Gas Sample Type Arterial; Carboxyhemoglobin 0.8 %THgb (0.4-20.1); HCO3 ABG 22.5 mmol/L (22-26); Methemoglobin 0.5 % (0.4-1.5); PO2 ABG 104.0 mmHg (80.0-100.0); PO2 FiO2 Ratio Arterial Blood 400
[2025-05-06] MEDS: cefTRIAXone 1,000 mg SDV 1000 MG IVP (02:15)
[2025-05-06 02:22] LABS: Hematocrit 46.3 % (36-47); Hemoglobin 15.00 g/dL (11.27-16.99); Mean Corpuscular HGB Conc 32.4 g/dL (30-55); Mean Corpuscular Hemoglobin 30.4 pg (27-33); Mean Corpuscular Volume 93.9 fl (85-98); Nucleated Red Blood Cells % 0 %; Platelet Count 158 10^3/cmm (157-399); Red Blood Count 4.93 10^6/uL (3.85-5.65); White Blood Count 13.02 10^3/uL (3.29-11.43)
--- NOTE | 2025-05-06 02:28 | ECG_ITS ---
[employer] Test Date: 2025-05-06 Pat Name: Janet Pillai Department: Room: Gender: Female Photographic Colorist: : 1955 Requested By: Sampson Sifuentes Order Number: [id number] Tomy MD: Lavon Sotomayor M.D. Measurements Intervals [place] Rate: 117 P: 247 KS: 160 QRS: -62 QRSD: 145 T: 64 QT: 406 QTc: 569 Interpretive Statements WIDE COMPLEX TACHYCARDIA RIGHT BUNDLE BRANCH BLOCK [120+ ms QRS DURATION, UPRIGHT V1, 40+ ms S IN I/aVL/V4/V5/V6] LEFT ANTERIOR FASCICULAR BLOCK [QRS AXIS <= -45, QR IN I, RS IN II] POSSIBLE LEFT VENTRICULAR HYPERTROPHY [VOLTAGE CRITERIA PLUS LAE OR QRS WIDENING] POSSIBLE ANTERIOR MYOCARDIAL INFARCTION , PROBABLY OLD [30 ms Q WAVE IN V3/V4, OR R < 0.2 mV IN V4] Compared to ECG 04/28/2025 15:05:44 There is no significant change Electronically Signed On 05-07-2025 20:36:41 SWITCHING OPERATOR by Lavon Sotomayor M.D. [email or web address]
[2025-05-06 02:34] LABS: INR 1.08 (0.8-1.2); Prothrombin Time 14.80 SECONDS (12.1-14.9)
[2025-05-06 02:41] LABS: Troponin(5th) Baseline 410 ng/L (0-10)
[2025-05-06 03:00] LABS: Respiratory Syncytial Virus Ce NEGATIVE (Negative); SARS-CoV-2 PCR NEGATIVE (Negative)
[2025-05-06 03:21] LABS: Alanine Aminotransferase 25 U/L (0-33); Albumin Level 3.9 g/dL (3.5-5.2); Alkaline Phosphatase 58 U/L (35-105); Anion Gap 23.3 (5-19); Aspartate Amino Transferase 17 U/L (0-32); Blood Urea Nitrogen 36 mg/dL (8-23); Calcium 9.3 mg/dL (8.5-10.5); Carbon Dioxide 20 mmol/L (22-29); Chloride 100 mmol/L (98-107); Globulin 2.1 g/dL (1.3-4.6); Glucose 199 mg/dL (65-115); Osmolality Calculated 302 mOsm/kg (285-295); Potassium 4.3 mmol/L (3.5-5.1); Sodium 139 mmol/L (136-145); Total Protein 6.0 g/dL (6.6-8.7)
[2025-05-06] MEDS: heparin drip 25,000 UNIT/500 ML PREMIX 38 UNIT IV (03:25)
[2025-05-06] MEDS: heparin 5,000 unit/mL INJ 1 mL IVP (03:27)
[2025-05-06 03:29] LABS: NT Pro B Type Natriuretic Pept 12804 pg/mL (0-125)
--- NOTE | 2025-05-06 04:06 | USCV_ITS ---
Janet Pillai Age: 70 Gender: F : 1955 Exam Date: 05/06/2025 08:42 Ordering Phys: Raman Parker MD Technologist: Exam Location: [facility] Indication: ? mi BP: 133 / 69 HR: Rhythm: Sinus Technical Quality: Adequate MEASUREMENTS (Male / Female) Normal Values 2D ECHO LV Diastolic Diameter PLAX 6.1 cm 4.2 - 5.9 / 3.9 - 5.3 cm IVS Diastolic Thickness 1.3 cm 0.6 - 1.0 / 0.6 - 0.9 cm IVS Systolic Thickness 1.8 cm LVPW Diastolic Thickness 1.5 cm 0.6 - 1.0 / 0.6 - 0.9 cm LVPW Systolic Thickness 1.8 cm LVOT Diameter 2.3 cm LV Ejection Fraction 2D Teich 47.9 % LV Ejection Fraction MOD 4C 27.4 % LV Ejection Fraction MOD 2C 34.2 % LV Ejection Fraction 2C AL 35.2 % LA Diameter 5.1 cm RA Systolic Volume 4C AL 71.9 ml RA Systolic Volume 4C MOD 65.8 ml Aorta at Sinotubular Diameter 3.1 cm FINDINGS Left Ventricle Mildly increased left ventricular cavity size. Moderately decreased left ventricular systolic function. Akinesis of the apical and mid segments with normal contractility of the basal segments creating the appearance of apical balooning consistent with Takotsubo's cardiomyopathy or ischemic cardiomyopathy. EF 34%. Right Ventricle The right ventricle is not well visualized. Right Atrium Left Atrium IA Septum Mitral Valve Aortic Valve Tricuspid Valve Pulmonic Valve Pericardium Aorta IVC CONCLUSIONS Mildly increased left ventricular cavity size. Moderately decreased left ventricular systolic function. Akinesis of the apical and mid left ventricular segments with normal contractility of the basal segments creating the appearance of apical balooning consistent with Takotsubo's cardiomyopathy or ischemic cardiomyopathy. EF 34%. Compared to echocardiogram on 04/29/25, the left ventricular dysfunction is new and the EF has decreased from 61% to 34%. Lavon Sotomayor MD, FACC (Electronically Signed) Final Date: 06 May 2025 21:17 S
--- NOTE | 2025-05-06 04:12 | PM.HP ---
Providers/Chief Complaint Admitting Physician: Raman Parker MD Primary Care Provider: DIONI Bruno Chief Complaint: sob History of Present Illness Janet Pillai is a 70 year old female with a past medical history of small cell lung cancer status post chemoradiation, history of CAD status post stenting, history of atrial fibrillation, history of hyperlipidemia, history of chronic kidney disease, morbid obesity, recent hospitalization for bradycardia, currently has an event monitor in place, who presents [facility] for chest pain shortness of breath. Patient reports that today she experienced increased shortness of breath, with minimal exertion, with productive cough, yellow sputum, with associated chest pain, anterior chest pain, nonradiating, no headache, no fevers, no lightheadedness, no dizziness, no abdominal pain, Review of Systems Card: Reports: chest pain Resp: Reports: dyspnea Medications/Allergies Home Medications ?Medication ?Instructions ?Recorded ?Confirmed ?Last Taken ?Type aspirin 81 mg tablet,delayed 81 mg PO QAM 06/21/19 05/02/25 04/28/25 10:30 History release Diabetic Shoes #1 ea 03/17/21 05/02/25 Unknown Rx blood sugar diagnostic #100 ea 01/03/22 05/02/25 Unknown Rx lancets (Accu-Chek Softclix #200 ea 01/03/22 05/02/25 Unknown Rx Lancets) nitroglycerin 0.4 mg sublingual 0.4 mg sublingual Q5M PRN chest 02/24/22 05/02/25 01/10/24 Rx tablet pain #25 tabs Diabetic Shoes and 3 inserts #1 ea 12/28/22 05/02/25 Unknown Rx pen needle, diabetic 32 gauge x #100 ea 05/16/23 05/02/25 Unknown Rx 5/16 (Comfort EZ Pen Barnard) PORTABLE OXYGEN CONCENTRATOR AND #1 ea 11/16/23 05/02/25 Unknown Rx SUPPLIES CPAP (Auto-Titrating CPAP) #1 ea 02/12/24 05/02/25 Unknown Rx diabetic shoes with 3 inserts #1 ea 04/03/24 05/02/25 Unknown Rx talavera balance brace, right foot #1 ea 09/30/24 05/02/25 Unknown Rx electric powerchair #1 ea 10/04/24 05/02/25 Unknown Rx rosuvastatin 40 mg tablet 40 mg PO DAILY 10/30/24 05/02/25 04/28/25 10:30 History cholecalciferol (vitamin D3) 1,250 See Rx Instructions .Route 01/13/25 05/02/25 04/23/25 09:00 Rx mcg (50,000 unit) capsule .COMPLEX #12 caps spironolactone 25 mg tablet See Rx Instructions .Route 02/25/25 05/02/25 04/28/25 10:30 Rx .COMPLEX #180 tabs amiodarone 200 mg tablet See Rx Instructions .Route 03/28/25 05/02/25 04/28/25 10:30 Rx .COMPLEX #90 tabs losartan 100 mg tablet 100 mg PO DAILY #90 tabs 04/07/25 05/02/25 04/28/25 10:30 Rx Held on 04/30/25. Instructions: Resume on 05/12/25. citalopram 10 mg tablet See Rx Instructions .Route 04/22/25 05/02/25 04/28/25 10:30 Rx .COMPLEX 90 days #90 tabs nystatin 100,000 unit/gram topical 1 applic topical TID #30 grams 04/22/25 05/02/25 04/27/25 Rx ointment 2 wheeled walker #1 ea 04/23/25 05/02/25 Unknown Rx apixaban 5 mg tablet (Eliquis) See Rx Instructions .Route 04/28/25 05/02/25 04/28/25 10:30 Rx .COMPLEX #60 tabs biotin 10,000 mcg capsule 10,000 mcg PO DAILY 04/28/25 05/02/25 04/27/25 19:00 History cetirizine 10 mg tablet (Zyrtec) 10 mg PO DAILY PRN Allergy Symptoms 04/28/25 05/02/25 Unknown History pantoprazole 40 mg tablet,delayed 40 mg PO DAILY 04/28/25 05/02/25 04/28/25 10:00 History release amlodipine 10 mg tablet 10 mg PO DAILY 30 days #30 tabs 04/30/25 05/02/25 Unknown Rx furosemide 20 mg tablet 40 mg (2 x 20 mg) PO DAILY 90 days 04/30/25 05/02/25 04/28/25 10:30 Rx #90 tabs Allergies Allergy/AdvReac Type Severity Reaction Status Date / Time Sulfa (Sulfonamide Allergy Unknown Verified 05/06/25 01:38 Antibiotics) sulfamethoxazole (From Allergy itching Verified 05/06/25 01:38 Bactrim) trimethoprim (From Bactrim) Allergy itching Verified 05/06/25 01:38 PFSH Acute PFSH: Medical History Dyslipidemia with low high density lipoprotein (HDL) cholesterol with hypertriglyceridemia due to type 2 diabetes mellitus History of cardiovascular stress test 12/2020 nl EKG response, nl myocardial perfusion with no evidence of ischemia Atrial fibrillation with rapid ventricular response History of cardioversion 01/[address] Solano, for difficult to control afib History of PFTs 06/17 moderate airflow obstruction with no significant response to bronchodilators History of Holter monitoring 06/16/2023-06/29/2023 baseline sinus daniel with 1st degree AVB, HR 41.4. Average was 76. Max was 144 bpm, no afib seen Mixed connective tissue disease Small cell lung cancer Port-A-Cath in place placed 08/[address] Kerr Former heavy cigarette smoker (20-39 per day) Quit in 2009 Aortic valve insufficiency, etiology of cardiac valve disease unspecified dx 10/14/02 Dr Kam Martinez, non-rheumatic Arthralgia of both knees Venous insufficiency of both lower extremities Opioid contract exists Obesity Chronic joint pain Anxiety and depression Hyperlipidemia Common migraine with intractable migraine Left Achilles tendinitis Back pain, lumbosacral Type 2 diabetes mellitus without complication, without long-term current use of insulin Essential hypertension COPD (chronic obstructive pulmonary disease) Gastroesophageal reflux disease without esophagitis Surgical History History of cataract surgery History of esophagogastroduodenoscopy (EGD) 10/2024 Dr Kerr with polypectomy/biopsy duodenum and antrum; 02/2025 at [facility] with polypectomy History of incision and drainage (04/2021) Left groin abscess by Dr Zaldivar History of bronchoscopy 07/2023 Bronch with BAL and EBUS sampling of [address] Hurst Hx of colonoscopy with polypectomy 05/2024 Dr Kerr; 02/2025 at [facility] with polypectomy Stented coronary artery 2 stents done 02/16/96 in [place] History of knee replacement 2010, right History of delivery Family History Other CAD (coronary artery disease) Cancer Diabetes Denies family history of Rheumatoid arthritis Lupus Hyperlipidemia Chronic kidney disease (CKD) Hypertension Stroke Social History Smoking and tobacco/nicotine status: former use of tobacco/nicotine (quit 2009) Quit status (tobacco/nicotine): has quit using Year quit tobacco: 2009 Former quit date comment: 3 ppd X 37 years Alcohol intake: never Substance/Drug Use: never Lives independently: No Household members: spouse Marital status: Current occupational status: unemployed Do you think of yourself as: Straight/Heterosexual Current gender identity: Female Vitals/I&O/Wt Last Vital Signs Temp 98.3 F 05/06/25 04:07 Pulse 118 H 05/06/25 04:07 Resp 25 H 05/06/25 04:07 BP 149/104 05/06/25 04:07 Pulse Ox 96 05/06/25 04:07 O2 Del Method Nasal Cannula 05/06/25 04:07 O2 Flow Rate 1 05/06/25 01:59 05/05/25 05/05/25 05/06/25 14:59 22:59 06:59 Intake Total 250 / 250 Balance 250 / 250 Weight last 48 hrs Weight 138 kg Weight 134.263 kg Physical Exam Const: COMMON NORMALS: no acute distress and patient oriented x3 Eye: COMMON NORMALS: Equal, round and reactive pupils present and EOMs intact bilaterally Lymph: LYMPHATIC: no lymphadenopathy noted Resp: COMMON NORMALS: normal respiratory effort, No retractions and No use of accessory muscles AUSCULTATION: wheezes Cardio: COMMON NORMALS: regular rate, regular rhythm, S1 normal heart sound present and S2 normal heart sound present RATE: regular rate RHYTHM: regular rhythm HEART SOUNDS: S1 normal heart sound present and S2 normal heart sound present GI: COMMON NORMALS: Normal to inspection, nondistended, normoactive bowel sounds present, Soft to palpation and non-tender Extremity: COMMON NORMALS: no calf tenderness and no pedal edema Neuro: COMMON NORMALS: patient oriented x3, CN's II-XII intact bilaterally and moves all extremities Psych: COMMON NORMALS: mental status grossly normal Data 05/06/25 02:07 05/06/25 02:01 A&P Assessment and plan 1. Non-ST elevation [place] (NSTEMI): 2. Shortness of breath: Plan: NSTEMI - No active chest pain - Baseline troponin 410, EKG no acute ST-T wave changes - Cardiology consulted by emergency room provider Plan - Keep n.p.o. - Aspirin - Statin - Beta-saba was discontinued during last hospitalization due to bradycardia - Heparin drip - Cardiac echo CARL on CKD - Creatinine 2.1 - Monitor creatinine closely Shortness of breath - Concerns for COPD exacerbation -concerns for possible right middle lobe pneumonia - Plan - Blood cultures - Respiratory viral panel - Pro-[place], CRP - Solu-Medrol - Rocephin - Azithromycin History of atrial fibrillation - Did receive Cardizem in the emergency room History of small cell carcinoma of left main bronchus History of sleep apnea, CPAP Type 2 diabetes mellitus, low-dose sliding scale Full code Heparin drip for DVT prophylaxis PDMP PDMP Reviewed: Not Reviewed Attestations Medical Necessity Statement*: Patient requires hospitalization, inpatient, greater than 2 midnights, for NSTEMI Diagnoses Non-ST elevation [place] (NSTEMI) I21.4 Shortness of breath R06.02
[2025-05-06 04:35] LABS: Procalcitonin 0.16 ng/mL (0-0.5); Thyroid Stimulating Hormone 6.21 uIU/mL (0.27-4.20)
[2025-05-06 04:46] LABS: Troponin 5 2HR 382.9 ng/L (0-10); Troponin 5 2HR Delta -27.1 ABS# (0-10)
[2025-05-06 04:46] LABS: Cholesterol 109 mg/dL (0-200); HDL Cholesterol 52 mg/dL (60-100); Triglycerides 114 mg/dL (0-150)
[2025-05-06 04:48] LABS: Estmated Average Glucose 117; Hemoglobin A1C 5.7 % (4.0-6.0)
[2025-05-06] MEDS: LOSARTAN 100 MG TABLET PO (05:14)
[2025-05-06] MEDS: ondansetron 2 mg/ML SDV 2 mL 4 MG IVP (05:14)
[2025-05-06] MEDS: pantoprazole 40 mg SDV IVP (05:15)
[2025-05-06] MEDS: CITALOPRAM 10 MG TABLET PO (05:18)
--- NOTE | 2025-05-06 07:12 | ECG_ITS ---
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 Measurements Intervals [place] Rate: 101 P: -83 [place]: 156 QRS: -76 QRSD: 161 T: -11 QT: 418 QTc: 543 Interpretive Statements SINUS TACHYCARDIA RIGHT BUNDLE BRANCH BLOCK [120+ ms QRS DURATION, UPRIGHT V1, 40+ ms S IN I/aVL/V4/V5/V6] LEFT ANTERIOR FASCICULAR BLOCK [QRS AXIS <= -45, QR IN I, RS IN II] POSSIBLE ANTERIOR MYOCARDIAL INFARCTION , OF INDETERMINATE AGE [30 ms Q WAVE IN V3/V4, OR R < 0.2 mV IN V4] MODERATE T-WAVE ABNORMALITY, CONSIDER LATERAL ISCHEMIA [-0.1+ mV T-WAVE IN I/aVL/V5/V6] Compared to ECG 05/06/2025 02:28:49 T-wave abnormality now present Possible ischemia now present Electronically Signed On 05-11-2025 18:04:37 [employer]OMOTIVE [employer] by Lavon Sotomayor M.D. [email or web address]
--- NOTE | 2025-05-06 08:54 | P.PN_ITS ---
Subjective 2 Subjective: Patient seen this morning medical floor on stepdown unit. Admitted for chest pain. Currently awaiting further evaluation by cardiology. She reports feeling much better. Vitals/I&O/Wt Last Vital Signs Temp 97.9 F 05/06/25 07:20 Pulse 100 05/06/25 07:20 Resp 18 05/06/25 07:20 BP 144/90 05/06/25 07:20 Pulse Ox 95 05/06/25 07:20 O2 Del Method Nasal Cannula 05/06/25 07:18 O2 Flow Rate 2 05/06/25 07:18 05/05/25 05/06/25 05/06/25 22:59 06:59 14:59 Intake Total 250 / 250 Balance 250 / 250 Weight last 48 hrs Weight 138 kg Weight 134.263 kg Physical Exam 2 Narrative: General: Awake and alert. No obvious respiratory distress. Neuro/Psych: Cooperative. Oriented x 3 Chest/Resp: Bilateral equal air entry; chest clinically clear. CVS: Rhythm: Regular heart rate and rhythm. No obvious murmurs appreciated. GI: Soft and non-tender abdomen. No obvious organomegaly. Extremities: Bilateral equal pulses. No obvious pitting pedal edema. Data 05/06/25 02:07 05/06/25 02:01 EKG 1: My Interpretation: Reviewed. A&P Assessment and plan 1. Non-ST elevation [place] (NSTEMI): 2. Intermittent atrial fibrillation: 3. Atherosclerosis of [place] coronary artery of [place] heart without angina pectoris: 4. Port-A-Cath in place: 5. Chronic anticoagulation: Plan: The H&P by admitting physician done earlier this morning reviewed. The [employer] Executive Consult Note also reviewed. Patient later complained of feeling thirsty, & was started on some oral fluids and allowed to eat till tomorrow morning, when the cardiac stress test is expected to be done. Given later noted low blood pressures, we will cautiouslyrehydrate with normal saline at 100 cc/h times X 2L only. Now watching out for potential risk of fluid load. Otherwise, defer further advice regarding the acute/chronic cardiac problems. PDMP PDMP Reviewed: Not Reviewed Attestations 2 Medical Necessity Statement*: N/A Coding Level of Care Code Acute Code for [facility] Diagnoses Non-ST elevation [place] (NSTEMI) I21.4 Intermittent atrial fibrillation I48.0 Atherosclerosis of [place] coronary artery of [place] heart without angina pectoris I25.10 [place] vs. transplanted heart: [place] heart Port-A-Cath in place Z95.828 Chronic anticoagulation Z79.01
[2025-05-06 09:06] LABS: Prothrombin Time 79.30 SECONDS (12.1-14.9)
[2025-05-06 09:28] LABS: INR 9.29 (0.8-1.2); Partial Thromboplastin Time > 250.0 SECONDS (23.9-36.7)
[2025-05-06 09:29] LABS: Troponin 5 6HR 264.1 ng/L (0-10)
--- NOTE | 2025-05-06 09:45 | PC.NURSE ---
patient had a critical PTT and INR result, the patient was redrawn due to possible error in first draw done by nurse. Redrawn by nurse and handed to lab.
--- NOTE | 2025-05-06 09:51 | P.CONIM_ITS ---
<Statement entered by Thiago Rodriguez M.D - 05/10/25 19:27> Patient was cared for in conjunction with an advanced practice practitioner. I reviewed the chart and all pertinent data including imaging, telemetry, and laboratory results. I discussed the patient in detail with the advanced practice practitioner. Please see their note for agreed upon plan of care and results for the patient. 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 Recent admission to the hospital 04/28/2025 to 04/30/2025 for ectopic atrial bradycardia. LVEF on 04/29/2025 was 61%. Most recent stress test was in 2020, no ischemia. She presented to the emergency room early this morning with worsening shortness of breath and episode of chest pressure, she began to have shortness of breath and orthopnea yesterday. She was noted to be tachycardic in the 130s, EKG read as ectopic atrial tachycardia. She did receive a dose of diltiazem at 1 AM, she is now sinus rhythm in the 80s. Troponin series: 410?>382?>264. She has not had any chest pain since she has been on CSU, she is now able to lie flat without distress. Review of Systems 2 Const: Denies: fever(s), chills, change in weight, fatigue or diaphoresis Eyes: Denies: change in vision ENMT: Denies: epistaxis Card: Denies: chest pain, palpitations, irregular heart rhythm, edema, syncope, pre-syncope, dyspnea on exertion, orthopnea or leg pain with exertion Resp: Reports: dyspnea; Denies: productive cough or wheezing GI: Denies: nausea, vomiting, hematemesis, hematochezia or melena : Denies: hematuria Musc: Denies: extremity swelling Robe/Lymph: Denies: easy bruising or easy bleeding Medications/Allergies Home Medications ?Medication ?Instructions ?Recorded ?Confirmed ?Last Taken ?Type aspirin 81 mg tablet,delayed 81 mg PO QAM 06/21/1905/2005/05/25 History release Diabetic Shoes #1 ea 03/17/21 05/06/25 Unkn own Rx blood sugar diagnostic #100 ea 01/03/22 05/06/25 Un known Rx lancets (Accu-Chek Softclix #200 ea 01/03/22 05/06/25 Unknown Rx Lancets) nitroglycerin 0.4 mg sublingual 0.4 mg sublingual Q5M PRN chest 02/24/22 05/06/25 01/10/24 Rx tablet pain #25 tabs Diabetic Shoes and 3 inserts #1 ea 12/28/22 05/06/25 U nknown Rx pen needle, diabetic 32 gauge x #100 ea 05/16/2305/06 Unknown Rx 5/16 (Comfort EZ Pen [place]) PORTABLE OXYGEN CONCENTRATOR AND #1 ea 11/16/23 Unknown Rx SUPPLIES CPAP (Auto-Titrating CPAP) #1 ea 02/12/24 05/06/25 Unk nown Rx diabetic shoes with 3 inserts #1 ea 04/03/24 05/06/25 Unknown Rx talavera balance brace, right foot #1 ea 09/30/24 5 Unknown Rx electric powerchair #1 ea 10/04/24 05/06/25 Unkn own Rx rosuvastatin 40 mg tablet 40 mg PO BEDTIME 10/30/2405/04/25 History cholecalciferol (vitamin D3) 1,250 See Rx Instructions .Route 01/13/25 05/06/25 04/30/25 Rx mcg (50,000 unit) capsule .COMPLEX #12 caps spironolactone 25 mg tablet See Rx Instructions .Route 02/25/25 05/06/25 05/05/25 Rx .COMPLEX #180 tabs amiodarone 200 mg tablet See Rx Instructions .Route 1 05/06/25 05/05/25 Rx .COMPLEX #90 tabs citalopram 10 mg tablet See Rx Instructions .Route 1 05/06/25 05/05/25 Rx .COMPLEX 90 days #90 tabs nystatin 100,000 unit/gram topical 1 applic topical TI D #30 grams 04/22/25 05/06/25 05/05/25 Rx ointment 2 wheeled walker #1 ea 04/23/25 05/06/25 Unkn own Rx apixaban 5 mg tablet (Eliquis) See Rx Instructions .Ro bill 04/28/25 05/06/25 05/05/25 Rx .COMPLEX #60 tabs biotin 10,000 mcg capsule 10,000 mcg PO DAILY 04/28/25 05/06/25 05/05/25 History cetirizine 10 mg tablet (Zyrtec) 10 mg PO DAILY PRN Al lergy Symptoms 04/28/25 05/06/25 Unknown History pantoprazole 40 mg tablet,delayed 40 mg PO DAILY 04/2805/06/25 05/05/25 History release amlodipine 10 mg tablet 10 mg PO DAILY 30 days #30 t abs 04/30/25 05/06/25 05/05/25 Rx furosemide 40 mg tablet 40 mg PO DAILY 05/06/2504/2605/05/25 History prochlorperazine maleate 10 mg 10 mg PO BID PRN Nausea And 05/06/25 05/06/25 Unknown History tablet Vomiting Allergies Allergy/AdvReac Type Severity Reaction Status Date / Time Sulfa (Sulfonamide Allergy Unknown Verified 05/06/25 01:38 Antibiotics) sulfamethoxazole (From Allergy itching Verified 05/06/25 01:38 Bactrim) trimethoprim (From Bactrim) Allergy itching Verified 05/06/25 01:38 Current Medications Generic Name Dose Route Start Last Admin Trade Name Freq PRN Reason Stop Dose Admin Albuterol/Ipratropium 3 ml 05/06/25 05:22 05/06/25 07:17 Ipratropium-Albuterol 3 Ml Neb INHALATION 3 ml Q4H PRN Administration SHORTNESS OF BREATH Amiodarone HCl 200 mg 05/06/25 04:30 05/06/25 05:17 Amiodarone 200 Mg Tablet PO 200 mg QD NOEL Administration Amlodipine Besylate 10 mg 05/06/25 05:00 05/06/25 05:14 Amlodipine 10 Mg Tablet PO 10 mg DAILY NOEL Administration Citalopram Hydrobromide 10 mg 05/06/25 04:15 05/06/25 05:18 Citalopram 10 Mg Tablet PO 10 mg QD NOEL Administration Heparin Sodium/Sodium Chloride 25,000 unit in 500 mls @ 0 mls/hr 05/06/25 03:00 05/06/25 09:15 Heparin Drip IV 13.03 unit/kg/hr CONT NOEL 35 mls/hr Protocol Titration Per Protocol Insulin Human Lispro 0 unit 05/06/25 08:00 05/06/25 08:58 Insulin Lispro 100 Unit/1 Ml SUBCUT Not Given TIDWM [facility] Protocol Losartan Potassium 100 mg 05/06/25 05:00 05/06/25 05:14 Losartan 100 Mg Tablet PO 100 mg DAILY NOEL Administration Ondansetron HCl 4 mg 05/06/25 03:56 05/06/25 05:14 Ondansetron 2 Mg/Ml Sdv 2 Ml IVP 4 mg Q6H PRN Administration NAUSEA AND VOMITING Pantoprazole Sodium 40 mg 05/06/25 04:15 05/06/25 05:15 Pantoprazole 40 Mg Sdv IVP 40 mg Q24H NOEL Administration Spironolactone 25 mg 05/06/25 05:00 05/06/25 05:15 Spironolactone 25 Mg Tablet PO 25 mg BID NOEL Administration PFSH Acute 2 PFSH: Medical History Non-ST elevation NC (NSTEMI) Dyslipidemia with low high density lipoprotein (HDL) cholesterol with hypertriglyceridemia due to type 2 diabetes mellitus History of cardiovascular stress test 12/2020 nl EKG response, nl myocardial perfusion with no evidence of ischemia Atrial fibrillation with rapid ventricular response History of cardioversion 01/[address] Solano, for difficult to control afib History of PFTs 06/17 moderate airflow obstruction with no significant response to bronchodilators History of Holter monitoring 06/16/2023-06/29/2023 baseline sinus daniel with 1st degree AVB, HR 41.4. Average was 76. Max was 144 bpm, no afib seen Mixed connective tissue disease Small cell lung cancer Port-A-Cath in place placed 08/[address] Kerr Former heavy cigarette smoker (20-39 per day) Quit in 2009 Aortic valve insufficiency, etiology of cardiac valve disease unspecified dx 10/14/02 Dr Kam Martinez, non-rheumatic Arthralgia of both knees Venous insufficiency of both lower extremities Opioid contract exists Obesity Chronic joint pain Anxiety and depression Hyperlipidemia Common migraine with intractable migraine Left Achilles tendinitis Back pain, lumbosacral Type 2 diabetes mellitus without complication, without long-term current use of insulin Essential hypertension COPD (chronic obstructive pulmonary disease) Gastroesophageal reflux disease without esophagitis Surgical History History of cataract surgery History of esophagogastroduodenoscopy (EGD) 10/2024 Dr Kerr with polypectomy/biopsy duodenum and antrum; 02/2025 at [facility] with polypectomy History of incision and drainage (04/2021) Left groin abscess by Dr Zaldivar History of bronchoscopy 07/2023 Bronch with BAL and EBUS sampling of [address] Hurst Hx of colonoscopy with polypectomy 05/2024 Dr Kerr; 02/2025 at [facility] with polypectomy Stented coronary artery 2 stents done 02/16/96 in [place] History of knee replacement 2009, right History of delivery Family History Other CAD (coronary artery disease) Cancer Diabetes Denies family history of Rheumatoid arthritis Lupus Hyperlipidemia Chronic kidney disease (CKD) Hypertension Stroke Social History Smoking and tobacco/nicotine status: former use of tobacco/nicotine (quit 2009) Quit status (tobacco/nicotine): has quit using Year quit tobacco: 2009 Former quit date comment: 3 ppd X 37 years Alcohol intake: never Substance/Drug Use: never Lives independently: No Household members: spouse Marital status: Current occupational status: unemployed Do you think of yourself as: Straight/Heterosexual Current gender identity: Female Vitals/I&O/Wt Last Vital Signs Temp 97.9 F 05/06/25 07:20 Pulse 100 05/06/25 07:20 Resp 18 05/06/25 07:20 BP 144/90 05/06/25 07:20 Pulse Ox 95 05/06/25 07:20 O2 Del Method Nasal Cannula 05/06/25 07:18 O2 Flow Rate 2 05/06/25 07:18 11/04/1905/06/25 05/06/25 22:59 06:59 14:59 Intake Total 250 / 250 221.667 / 221.667 Balance 250 / 250 221.667 / 221.667 Weight last 48 hrs Weight 304 lb 3.806 oz Weight 296 lb Physical Exam 2 Const: COMMON NORMALS: no acute distress and patient oriented x3 GENERAL APPEARANCE: cooperative and comfortable ORIENTATION/CONSCIOUSNESS: Yes awake, Yes oriented to person, Yes oriented to place and Yes oriented to time Chest: COMMONS NORMALS: normal inspection of the chest and normal palpation of entire chest wall CHEST: Yes Symmetrical chest wall rise Resp: COMMON NORMALS: normal respiratory effort, No retractions, No use of accessory muscles and clear to auscultation bilaterally EFFORT & INSPECTION: Yes symmetric chest movement AUSCULTATION: clear to auscultation bilaterally Cardio: COMMON NORMALS: regular rate, regular rhythm, S1 normal heart sound present, S2 normal heart sound present, No gallops present (Cardio), No clicks present (Cardio), No murmurs present (Cardio) and No rub (Cardio) RATE: r egular rate RHYTHM: regular rhythm HEART SOUNDS: S1 normal heart sound present and S2 normal heart sound present PERIPHERAL PULSES: radial pulses present Extremity: COMMON NORMALS: no pedal edema Neuro: COMMON NORMALS: patient oriented x3 and moves all extremities S ENSORIUM/ORIENTATION: Yes oriented to person, Yes oriented to place and Yes oriented to time Data 05/06/25 02:07 05/06/25 02:01 A&P Assessment and plan 1. Non-ST elevation NC (NSTEMI): 2. Intermittent atrial fibrillation: 3. Coronary arteriosclerosis: 4. Aortic valve insufficiency, etiology of cardiac valve disease unspecified: 5. Former heavy cigarette smoker (20-39 per day): 6. Port-A-Cath in place: 7. Chronic anticoagulation: 8. Type 2 diabetes mellitus without complication, without long-term current use of insulin: 9. Morbid obesity with BMI of 45.0-49.9, adult: 10. Kidney disease, chronic, stage IV (GFR 15-29 ml/min): 11. HENRY (obstructive sleep apnea): Plan: She has history of stents placed many years ago, with episode of typical chest pain and elevated troponin she will need ischemic workup. BMP was quite elevated however she is laying flat and breathing without difficulty currently, chest x-ray did not show any pulmonary vascular congestion. Will plan for stress test or coronary angiogram tomorrow depending on how the day progresses. Repeat echocardiogram has been ordered by hospitalist service, pending read. Continue aspirin, hold Eliquis. Continue losartan, statin, amlodipine, amiodarone. She is aware of risks of contrast-induced nephropathy worsening renal function if coronary angiogram is determined to be necessary. She can drink fluids today PDMP PDMP Reviewed: Not Reviewed Coding Level of Care Code Acute Code for Chg Fwd Diagnoses Non-ST elevation NC (NSTEMI) I21.4 Intermittent atrial fibrillation I48.0 Coronary arteriosclerosis I25.10 Aortic valve insufficiency, etiology of cardiac valve disease unspecified I35.1 Cardiac valve disease etiology: etiology unspecified Former heavy cigarette smoker (20-39 per day) Z87.891 Port-A-Cath in place Z95.828 Chronic anticoagulation Z79.01 Type 2 diabetes mellitus without complication, without long-term current use of insulin E11.9 Diabetes mellitus fdc insulin use: without fdc use Diabetes mellitus complication status: without complication Morbid obesity with BMI of 45.0-49.9, adult E66.01; Z68.42 Kidney disease, chronic, stage IV (GFR 15-29 ml/min) N18.4 HENRY (obstructive sleep apnea) G47.33
[2025-05-06 10:34] LABS: Partial Thromboplastin Time > 250.0 SECONDS (23.9-36.7)
--- NOTE | 2025-05-06 10:40 | PC.NURSE ---
per protocol, heparin stopped after a criticcal lab of ptt greater than 250. Dr IRENE notified and he instructed to follow protocol.
--- NOTE | 2025-05-06 14:53 | PC.NURSE ---
patient's blood pressure has been soft (see vitals). Dr IRENE notified and he said he will come see the patient. Patient is currently asymptomatic.
[2025-05-06 15:35] LABS: Partial Thromboplastin Time 185.9 SECONDS (23.9-36.7)
[2025-05-06] MEDS: methylPREDNISolone sod succ 40 mg/mL INJ IVP (16:57)
--- NOTE | 2025-05-06 17:21 | ECG_ITS ---
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 Interpretive Statements Procedure: A total of 0.4 mg of Lexiscan was infused over 20 seconds. The stress phase was continued for a total of 5 minutes. Sestamibi was injected 20 seconds after the Lexiscan infusion. Findings: The patient's blood pressure at baseline was 1145/57 mmHg with a resting heart rate of 84 bpm. The patient's blood pressure decreased to 94/72 mmHg and the heart rate increased to a maximum of 98 bpm after Lexiscan injection. At the end of recovery the patient's blood pressure was 103/58 mmHg with a heart rate of 75 bpm. Baseline EKG showed normal sinus rhythm with right bundle branch block and left anterior fascicular block as well as anterolateral and inferior mild ST depression in moderate T wave inversions. No ST or T wave changes from baseline during stress test. No arrhythmias occurred Conclusion: 1. Normal EKG response to Lexiscan infusion without evidence of inducible ischemia. 2. No Lexiscan induced chest pain or cardiac arrhythmia. 3. Normal blood pressure and heart rate response. 4. Nuclear myocardial perfusion scan pending; see separate report. Electronically Signed On 05-07-2025 19:32:26 CONSUMER LOAN OFFICER by Lavon Sotomayor M.D. [email or web address]
[2025-05-06 19:28] LABS: Partial Thromboplastin Time 36.2 SECONDS (23.9-36.7)
--- NOTE | 2025-05-06 22:43 | PC.NURSE ---
contacted based on repeat PTT of 36.2 at 1999, after being paused since 999, they repeated ptt at 1400 and it was 189, ordered for heparin gtt get restarted at 15mL/hr instead of 35mL/hr and to recheck ptt in 4 hours
[2025-05-07] VITALS (9 sets, daily range): BP systolic 103–125; BP diastolic 47–84; PULSE 64–84; RESP 14–20; TEMP 36–37.3; O2SAT 96–100
[2025-05-07 00:58] LABS: Partial Thromboplastin Time 34.3 SECONDS (23.9-36.7)
[2025-05-07] MEDS: methylPREDNISolone sod succ 40 mg/mL INJ IVP ×3 (01:25→17:08)
[2025-05-07] MEDS: cefTRIAXone 1,000 mg SDV 1000 MG IVP (01:26)
[2025-05-07] MEDS: CITALOPRAM 10 MG TABLET PO (05:00)
[2025-05-07] MEDS: pantoprazole 40 mg SDV IVP (05:00)
[2025-05-07] MEDS: LOSARTAN 100 MG TABLET PO (05:01)
[2025-05-07] MEDS: heparin drip 25,000 UNIT/500 ML PREMIX 23 UNIT IV (08:59)
[2025-05-07 09:39] LABS: Hematocrit 39.7 % (36-47); Hemoglobin 13.00 g/dL (11.27-16.99); Mean Corpuscular HGB Conc 32.7 g/dL (30-55); Mean Corpuscular Hemoglobin 31.0 pg (27-33); Mean Corpuscular Volume 94.7 fl (85-98); Nucleated Red Blood Cells % 0 %; Platelet Count 149 10^3/cmm (157-399); Red Blood Count 4.19 10^6/uL (3.85-5.65); White Blood Count 17.08 10^3/uL (3.29-11.43)
[2025-05-07 09:51] LABS: Partial Thromboplastin Time 28.0 SECONDS (23.9-36.7)
[2025-05-07 09:55] LABS: Anion Gap 19.5 (5-19); Blood Urea Nitrogen 31 mg/dL (8-23); Calcium 9.0 mg/dL (8.5-10.5); Carbon Dioxide 23 mmol/L (22-29); Chloride 96 mmol/L (98-107); Glucose 172 mg/dL (65-115); Osmolality Calculated 289 mOsm/kg (285-295); Potassium 4.5 mmol/L (3.5-5.1); Sodium 134 mmol/L (136-145)
--- NOTE | 2025-05-07 10:22 | P.PN_ITS ---
<Statement entered by Thiago Rodriguez M.D - 05/10/25 19:35> Patient was cared for in conjunction with an advanced practice practitioner. I reviewed the chart and all pertinent data including imaging, telemetry, and laboratory results. I discussed the patient in detail with the advanced practice practitioner. Please see their note for agreed upon plan of care and results for the patient. Subjective 2 Subjective: She has not had any chest pain overnight, appears euvolemic. Echocardiogram completed yesterday shows decrease in LVEF from 61% down to 34% with Takotsubo versus ischemic appearance. Vitals/I&O/Wt Last Vital Signs Temp 96.8 F L 05/07/25 08:57 Pulse 78 05/07/25 08:57 Resp 20 H 05/07/25 08:57 BP 123/84 05/07/25 08:57 Pulse Ox 100 05/07/25 08:57 O2 Del Method Nasal Cannula 05/07/25 08:57 O2 Flow Rate 2 05/07/25 04:00 05/06/25 05/07/25 05/07/25 22:59 06:59 14:59 Intake Total 120 / 1867.982 9957.5 / 1710.750 159.25 / 159.25 Output Total 500 / 500 Balance 120 / 1210.750 819.5 / 1210.750 159.25 / 159.25 Weight last 48 hrs Weight 300 lb 14.896 oz Weight 304 lb 3.806 oz Weight 296 lb Physical Exam 2 Const: COMMON NORMALS: no acute distress and patient oriented x3 GENERAL APPEARANCE: cooperative and comfortable ORIENTATION/CONSCIOUSNESS: Yes awake, Yes oriented to person, Yes oriented to place and Yes oriented to time Chest: COMMONS NORMALS: normal inspection of the chest and normal palpation of entire chest wall CHEST: Yes Symmetrical chest wall rise Resp: COMMON NORMALS: normal respiratory effort, No retractions, No use of accessory muscles and clear to auscultation bilaterally EFFORT & INSPECTION: Yes symmetric chest movement AUSCULTATION: clear to auscultation bilaterally Cardio: COMMON NORMALS: regular rate, regular rhythm, S1 normal heart sound present, S2 normal heart sound present, No gallops present (Cardio), No clicks present (Cardio), No murmurs present (Cardio) and No rub (Cardio) RATE: r egular rate RHYTHM: regular rhythm HEART SOUNDS: S1 normal heart sound present and S2 normal heart sound present PERIPHERAL PULSES: radial pulses present Extremity: COMMON NORMALS: no pedal edema Neuro: COMMON NORMALS: patient oriented x3 and moves all extremities S ENSORIUM/ORIENTATION: Yes oriented to person, Yes oriented to place and Yes oriented to time Data 05/07/25 09:27 05/07/25 09:27 A&P Assessment and plan 1. Non-ST elevation SC (NSTEMI): 2. Intermittent atrial fibrillation: 3. Chronic anticoagulation: 4. Coronary arteriosclerosis: 5. Essential hypertension: 6. Type 2 diabetes mellitus without complication, without long-term current use of insulin: 7. Morbid obesity with BMI of 45.0-49.9, adult: 8. Kidney disease, chronic, stage IV (GFR 15-29 ml/min): 9. COPD (chronic obstructive pulmonary disease): 10. HENRY (obstructive sleep apnea): Plan: Creatinine improved to 1.6 today. Shortness of breath is improved and she is able to lay flat. Will plan on coronary angiogram tomorrow morning at 7 AM. N.p.o. after midnight tonight. Hold Eliquis, she has not had a dose since 05/05/2025. Continue amiodarone, losartan, aspirin, Lasix, statin. PDMP PDMP Reviewed: Not Reviewed Attestations 2 Medical Necessity Statement*: Ischemic workup for new onset LV dysfunction, chest pain, elevated troponin Coding Level of Care Code Acute Code for [facility] Diagnoses Non-ST elevation SC (NSTEMI) I21.4 Intermittent atrial fibrillation I48.0 Chronic anticoagulation Z79.01 Coronary arteriosclerosis I25.10 Essential hypertension I10 Type 2 diabetes mellitus without complication, without long-term current use of insulin E11.9 Diabetes mellitus long term care administrator insulin use: without jail use Diabetes mellitus complication status: without complication Morbid obesity with BMI of 45.0-49.9, adult E66.01; Z68.42 Kidney disease, chronic, stage IV (GFR 15-29 ml/min) N18.4 COPD (chronic obstructive pulmonary disease) J44.9 HENRY (obstructive sleep apnea) G47.33
--- NOTE | 2025-05-07 12:39 | PM.PN ---
Subjective Subjective: Patient seen again this morning in the stepdown unit in the company of the . She had just come back from a stress test. 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 Otherwise, she has no new complaints Vitals/I&O/Wt Last Vital Signs Temp 97.5 F L 05/07/25 11:21 Pulse 75 05/07/25 11:21 Resp 18 05/07/25 11:21 BP 111/66 05/07/25 11:21 Pulse Ox 99 05/07/25 11:21 O2 Del Method Nasal Cannula 05/07/25 11:21 O2 Flow Rate 2 05/07/25 04:00 05/06/25 05/07/25 05/07/25 22:59 06:59 14:59 Intake Total 120 / 507.518 3171.5 / 1710.750 159.25 / 159.25 Output Total 500 / 500 Balance 120 / 391.250 819.5 / 1210.750 159.25 / 159.25 Weight last 48 hrs Weight 136.5 kg Weight 138 kg Weight 134.263 kg Data 05/07/25 09:27 05/07/25 09:27 A&P Assessment and plan 1. Non-ST elevation ID (NSTEMI): 2. Atherosclerosis [place] coronary artery [place] heart without angina pectoris: 3. Intermittent atrial fibrillation: 4. Chronic anticoagulation: 5. Coronary arteriosclerosis: 6. Type 2 diabetes mellitus without complication, without long-term current use of insulin: 7. Essential hypertension: Plan: 1. Acute NSTEMI: Currently stable. Awaiting further plans from cardiology. 2. Essential hypertension with CAD: Continue patient's home medications for this. 3. Type 2 diabetes mellitus: Continue sliding scale prandial insulin, as needed, for control of the blood sugar. 4. Chronic anticoagulation for apparent paroxysmal atrial fibrillation: Continue home dose of anticoagulants. PDMP PDMP Reviewed: Not Reviewed Attestations Medical Necessity Statement*: Awaiting angiography tomorrow by cardiology. Continue ongoing antiplatelets, etc. for apparent NSTEMI. Anticipating discharge tomorrow. Coding Level of Care Code 90834 Diagnoses Non-ST elevation ID (NSTEMI) I21.4 Atherosclerosis [place] coronary artery [place] heart without angina pectoris I25.10 [place] vs. transplanted heart: [place] heart Intermittent atrial fibrillation I48.0 Chronic anticoagulation Z79.01 Coronary arteriosclerosis I25.10 Type 2 diabetes mellitus without complication, without long-term current use of insulin E11.9 Diabetes mellitus correction insulin use: without correction use Diabetes mellitus complication status: without complication Essential hypertension I10
[2025-05-07 16:22] LABS: Partial Thromboplastin Time 83.7 SECONDS (23.9-36.7)
--- NOTE | 2025-05-07 17:21 | NMCV_ITS ---
NM pepe perf SPECT r/s* [id number] Janet Pillai Age: 70 Gender: F : 1955 Exam Date: 05/07/2025 06:53 Ordering Phys: Lucero Parson Technologist: ZAHEER Gaffney Exam Location: [facility] Indications: CP STRESS TEST [facility] IMAGE PROTOCOL Rest/Stress 1 Lexiscan Day Radiopharmaceutical Dose (mCi) Administration Site Administered by Rest: Tc-99m 10.6 IV ZAHEER Henderson Sestamibi Stress:Tc-99m 33 IV ZAHEER Gaffney Sestamigiacomo Rest: 07-May-2025 60 Discovery 630 Stress: 07-May-2025 30 Discovery 630 0.4mg Lexiscan. Images obtained in supine and prone position. SPECT RESULTS Technical Quality: Good Raw Data Analysis: Soft tissue attenuation Image Corrections: No attenuation or motion correction applied Summed Stress Score: 18 Summed Rest Score: 19 Summed Difference Score: 0 PERFUSION FINDINGS There is a large area of severely reduced tracer counts in all apical and mid segments of the heart with no reversibility. FUNCTIONAL RESULTS (calculated via Gated SPECT) Stress Image LV EF (%): 43 Stress EDV (mL):143 TID: 0.97 Stress ESV (mL):81 FUNCTIONAL FINDINGS: Resting left ventricular cavity dilation. Akinesis of apical and mid wall segments with normal contractility of the basal segments. Moderately reduced ejection fraction, 43%. IMPRESSIONS 1. Large infarction involving the apical and mid left ventricular segments with no ischemia. 2. Left ventricular cavity dilation at rest. Akinesis of the apical and mid wall segments with normal contractility of the basal segments. Moderately reduced ejection fraction, 43%. Lavon Sotomayor MD, FACC (Electronically Signed) Final Date: 07 May 2025 09:36 S
[2025-05-07 22:43] LABS: Partial Thromboplastin Time 109.3 SECONDS (23.9-36.7)
[2025-05-08] VITALS (51 sets, daily range): BP systolic 89–154; BP diastolic 44–95; PULSE 58–86; RESP 13–25; TEMP 35.7–36.7; O2SAT 60–100; BMI 45.7
[2025-05-08] MEDS: methylPREDNISolone sod succ 40 mg/mL INJ IVP ×3 (00:15→15:25)
[2025-05-08] MEDS: cefTRIAXone 1,000 mg SDV 1000 MG IVP (03:02)
[2025-05-08] MEDS: heparin drip 25,000 UNIT/500 ML PREMIX 21 UNIT IV (03:04)
[2025-05-08] MEDS: pantoprazole 40 mg SDV IVP (05:09)
[2025-05-08 05:34] LABS: Platelet Count 147 10^3/cmm (157-399)
[2025-05-08 05:57] LABS: Partial Thromboplastin Time 77.7 SECONDS (23.9-36.7)
[2025-05-08] MEDS: LOSARTAN 100 MG TABLET PO (06:01)
[2025-05-08] MEDS: CITALOPRAM 10 MG TABLET PO (06:01)
--- NOTE | 2025-05-08 07:33 | W.PM.OPSUD ---
Surgery/Procedure H&P Update DATE OF PROCEDURE: May 08, 2025 DATE H&P PERFORMED: 05/06/25 H&P UPDATE INFORMATION: I have reviewed H&P completed within last 30 days, I have examined patient prior to procedure and Changes to prior documentation as noted here CHANGES TO PREVIOUS DOCUMENTATION: Patient 's echo shows severe LV dysfunction PREOP DIAGNOSIS: LV dysfunction/ NSTEMI PRIMARY INDICATION FOR PROCEDURE: LV dysfunction/ NSTEMI PLANNED PROCEDURE: Operation Date: 05/08/25 07:00 Proposed Procedures p Cardiac Catheterization(Left) - Thiago Rodriguez M.D Possible percutaneous coronary intervention PATIENT REASSESSED PRIOR TO SEDATION, WITH NO CHANGE NOTED: Yes PHYSICAL EXAM: alert, oriented x 3, clear to auscultation bilaterally and regular rate & rhythm AIRWAY EVAL/ANESTHESIA PLAN: normal airway, ASA III, Local Anesthesia, Risks, benefits & alternatives of sedation and/or procedure discussed and Patient agrees to continue as planned ADDITIONAL INFORMATION: Moderate sedation
--- NOTE | 2025-05-08 09:19 | PM.PROC ---
Procedure Note: Date of procedure: 05/08/25 Pre-procedure diagnosis: NSTEMI/ LV dysfunction Post-procedure diagnosis: other (Patent coronary arteries/ non-ischemic cardiomyopathy) Procedure: Patent coronary arteries. Non-ischemic cardiomyopathy, likely takotsubo cardiomyopathy. Guideline directed cardiomyopathy Performing Provider: Thiago Rodriguez Complications: None Condition: stable Disposition: floor Coding Level of Care Code [facility]
--- NOTE | 2025-05-08 09:37 | P.PN_ITS ---
<Statement entered by Thiago Rodriguez M.D - 05/10/25 19:41> Patient was cared for in conjunction with an advanced practice practitioner. I reviewed the chart and all pertinent data including imaging, telemetry, and laboratory results. I discussed the patient in detail with the advanced practice practitioner. Please see their note for agreed upon plan of care and results for the patient. Subjective 2 Subjective: She had coronary angiogram this morning, finding patent coronaries, nonischemic cardiomyopathy. She will need to continue losartan 100 mg daily, Entresto would be preferred however she has reduced renal function. Vitals/I&O/Wt Last Vital Signs Temp 98.1 F 05/08/25 08:00 Pulse 66 05/08/25 09:15 Resp 16 05/08/25 09:15 BP 109/59 05/08/25 09:15 Pulse Ox 95 05/08/25 09:15 O2 Del Method CPAP 05/08/25 04:00 O2 Flow Rate 2 05/07/25 04:00 05/07/25 05/08/25 05/08/25 22:59 06:59 14:59 Intake Total 681.5 / 1572.533 588.4 / 1572.533 360 / 360 Output Total 1400 / 1400 Balance 681.5 / 172.533 -811.6 / 172.533 360 / 360 Weight last 48 hrs Weight 300 lb 11.368 oz Weight 300 lb 14.896 oz Physical Exam 2 Const: COMMON NORMALS: no acute distress and patient oriented x3 GENERAL APPEARANCE: cooperative and comfortable ORIENTATION/CONSCIOUSNESS: Yes awake, Yes oriented to person, Yes oriented to place and Yes oriented to time Chest: COMMONS NORMALS: normal inspection of the chest and normal palpation of entire chest wall CHEST: Yes Symmetrical chest wall rise Resp: COMMON NORMALS: normal respiratory effort, No retractions, No use of accessory muscles and clear to auscultation bilaterally EFFORT & INSPECTION: Yes symmetric chest movement AUSCULTATION: clear to auscultation bilaterally Cardio: COMMON NORMALS: regular rate, regular rhythm, S1 normal heart sound present, S2 normal heart sound present, No gallops present (Cardio), No clicks present (Cardio), No murmurs present (Cardio) and No rub (Cardio) RATE: r egular rate RHYTHM: regular rhythm HEART SOUNDS: S1 normal heart sound present and S2 normal heart sound present PERIPHERAL PULSES: radial pulses present Extremity: COMMON NORMALS: no pedal edema Neuro: COMMON NORMALS: patient oriented x3 and moves all extremities S ENSORIUM/ORIENTATION: Yes oriented to person, Yes oriented to place and Yes oriented to time Data 05/08/25 05:12 05/07/25 09:27 A&P Assessment and plan 1. Non-ST elevation VA (NSTEMI): 2. Intermittent atrial fibrillation: 3. Coronary arteriosclerosis: 4. Essential hypertension: 5. Type 2 diabetes mellitus without complication, without long-term current use of insulin: 6. Morbid obesity with BMI of 45.0-49.9, adult: 7. Kidney disease, chronic, stage IV (GFR 15-29 ml/min): 8. COPD (chronic obstructive pulmonary disease): 9. HENRY (obstructive sleep apnea): Plan: Nonischemic cardiomyopathy, medical management. She appears euvolemic currently. Will continue Lasix 40 mg daily, aspirin, losartan 100 mg daily, atorvastatin 40 mg daily, amiodarone 200 mg daily, spironolactone 25 mg twice daily. Blood pressure too soft for the addition of beta-saba. Will watch her labs carefully, if creatinine is stable possible discharge tomorrow. PDMP PDMP Reviewed: Not Reviewed Attestations 2 Medical Necessity Statement*: Post cath, GDMT heart failure. Probable discharge tomorrow Coding Level of Care Code Acute Code for [facility] Diagnoses Non-ST elevation VA (NSTEMI) I21.4 Intermittent atrial fibrillation I48.0 Coronary arteriosclerosis I25.10 Essential hypertension I10 Type 2 diabetes mellitus without complication, without long-term current use of insulin E11.9 Diabetes mellitus chcf insulin use: without chcf use Diabetes mellitus complication status: without complication Morbid obesity with BMI of 45.0-49.9, adult E66.01; Z68.42 Kidney disease, chronic, stage IV (GFR 15-29 ml/min) N18.4 COPD (chronic obstructive pulmonary disease) J44.9 HENRY (obstructive sleep apnea) G47.33
--- NOTE | 2025-05-08 09:44 | P.PN_ITS ---
Subjective 2 Subjective: . Patient seen earlier this morning dong iting angiogram. She denies any new complaints. Awaiting further instructions from cardiology. Vitals/I&O/Wt Last Vital Signs Temp 98.1 F 05/08/25 08:00 Pulse 66 05/08/25 09:15 Resp 16 05/08/25 09:15 BP 109/59 05/08/25 09:15 Pulse Ox 95 05/08/25 09:15 O2 Del Method CPAP 05/08/25 04:00 O2 Flow Rate 2 05/07/25 04:00 05/07/25 05/08/25 05/08/25 22:59 06:59 14:59 Intake Total 681.5 / 984.133 588.4 / 1572.533 360 / 360 Output Total 1400 / 1400 Balance 681.5 / 984.133 -811.6 / 172.533 360 / 360 Weight last 48 hrs Weight 136.4 kg Weight 136.5 kg Physical Exam 2 Narrative: General: Awake and alert. Cooperative. Respiration: No obvious respiratory distress. Abdomen: Soft. Non-distended. Non-tender. Extremities: No obvious pitting pedal edema. Skin: No obvious new rashes or any unusual skin lesion(s). Data 05/08/25 05:12 05/08/25 16:06 A&P Assessment and plan 1. Acute on chronic kidney failure: 2. Hyponatremia: 3. Intermittent atrial fibrillation: 4. Atherosclerosis of [place] coronary artery of [place] heart without angina pectoris: 5. Port-A-Cath in place: 6. History of atrial fibrillation: 7. Chronic anticoagulation: 8. Kidney disease, chronic, stage IV (GFR 15-29 ml/min): Plan: Otherwise currently stable patient. I was hoping to discharge patient today, especially after I got information from cardiology that the angiogram was negative for any acute or chronic/reversible ischemic problem. However, recheck of the BMP shows apparent hyponatremia with sodium of 130, and relatively elevated BUN/creatinine. Given the above, I am going to rehydrate patient cautiously with normal saline at 120 cc/h x 1 L, only. Repeat BMP in the morning, and if this numbers look better, or at least stable, she could be discharged today. This is important given that contrasts were used for the angiogram today, especially in view of known history of CKD. In the meantime, I see the patient takes citalopram; will hold this, & possibly discontinue this upon discharge, given potential to cause or worsen hyponatremia. See my orders for more details. PDMP PDMP Reviewed: Not Reviewed Attestations 2 Medical Necessity Statement*: See assessment and plan above Coding Level of Care Code Acute Code for [facility] Diagnoses Acute on chronic kidney failure N17.9; N18.9 Hyponatremia E87.1 Intermittent atrial fibrillation I48.0 Atherosclerosis of [place] coronary artery of [place] heart without angina pectoris I25.10 [place] vs. transplanted heart: [place] heart Port-A-Cath in place Z95.828 History of atrial fibrillation Z86.79 Chronic anticoagulation Z79.01 Kidney disease, chronic, stage IV (GFR 15-29 ml/min) N18.4
[2025-05-08 17:01] LABS: Anion Gap 14.7 (5-19); Blood Urea Nitrogen 43 mg/dL (8-23); Calcium 8.9 mg/dL (8.5-10.5); Carbon Dioxide 25 mmol/L (22-29); Chloride 95 mmol/L (98-107); Glucose 214 mg/dL (65-115); Osmolality Calculated 287 mOsm/kg (285-295); Potassium 4.7 mmol/L (3.5-5.1); Sodium 130 mmol/L (136-145)
--- NOTE | 2025-05-08 21:17 | PC.NURSE ---
the patient informed this nurse that there is bloody streaks in her suptum and has been around noon today, this nurse contacted MD about suptum, and that she was on a heparin gtt this AM. The MD said to monitor for now and gave an order for tessalon pearls 100mg tid PRN, orders entered and updated patient
[2025-05-09] VITALS (7 sets, daily range): BP systolic 117–127; BP diastolic 47–67; PULSE 68–75; RESP 13–16; TEMP 36.5; O2SAT 91–98; BMI 47.9
[2025-05-09 04:46] LABS: Anion Gap 12.7 (5-19); Blood Urea Nitrogen 37 mg/dL (8-23); Calcium 8.6 mg/dL (8.5-10.5); Carbon Dioxide 26 mmol/L (22-29); Chloride 100 mmol/L (98-107); Glucose 150 mg/dL (65-115); Osmolality Calculated 290 mOsm/kg (285-295); Potassium 4.7 mmol/L (3.5-5.1); Sodium 134 mmol/L (136-145)
[2025-05-09] MEDS: polyethylene glycol 3350 Pkt 17 gm PO (05:28)
[2025-05-09] MEDS: pantoprazole 40 mg SDV IVP (05:28)
[2025-05-09] MEDS: LOSARTAN 100 MG TABLET PO (05:28)
--- NOTE | 2025-05-09 09:23 | P.PN_ITS ---
<Statement entered by Thiago Rodriguez M.D - 05/10/25 19:49> Patient was cared for in conjunction with an advanced practice practitioner. I reviewed the chart and all pertinent data including imaging, telemetry, and laboratory results. I discussed the patient in detail with the advanced practice practitioner. Please see their note for agreed upon plan of care and results for the patient. Subjective 2 Subjective: She has done well overnight, able to lay flat and breathing without difficulty. May discharge home today. No complications with right radial cath site. Vitals/I&O/Wt Last Vital Signs Temp 97.7 F 05/09/25 07:40 Pulse 75 05/09/25 08:58 Resp 16 05/09/25 08:58 BP 124/67 05/09/25 07:40 Pulse Ox 97 05/09/25 08:58 O2 Del Method Nasal Cannula 05/09/25 08:58 O2 Flow Rate 2 05/09/25 08:58 05/08/25 05/09/25 05/09/25 22:59 06:59 14:59 Intake Total 1480 / 3336.2 1000 / 3336.2 240 / 240 Output Total 1400 / 2800 1400 / 2800 Balance 80 / 536.2 -400 / 536.2 240 / 240 Weight last 48 hrs Weight 315 lb 11.231 oz Weight 300 lb 11.368 oz Physical Exam 2 Const: COMMON NORMALS: no acute distress and patient oriented x3 GENERAL APPEARANCE: cooperative ORIENTATION/CONSCIOUSNESS: Yes awake, Yes oriented to person, Yes oriented to place and Yes oriented to time Chest: COMMONS NORMALS: normal inspection of the chest and normal palpation of entire chest wall CHEST: Yes Symmetrical chest wall rise Resp: COMMON NORMALS: normal respiratory effort, No retractions, No use of accessory muscles and clear to auscultation bilaterally AUSCULTATION: clear to auscultation bilaterally Cardio: COMMON NORMALS: regular rate, regular rhythm, S1 normal heart sound present, S2 normal heart sound present, No gallops present (Cardio), No clicks present (Cardio), No murmurs present (Cardio) and No rub (Cardio) RATE: r egular rate RHYTHM: regular rhythm HEART SOUNDS: S1 normal heart sound present and S2 normal heart sound present PERIPHERAL PULSES: radial pulses present positive right 2+ and femoral pulses present positive right 2+ Neuro: COMMON NORMALS: patient oriented x3 and moves all extremities S ENSORIUM/ORIENTATION: Yes oriented to person, Yes oriented to place and Yes oriented to time Skin: WOUNDS: Yes surgical site (no hematoma palpable) Details: no odor Data 05/08/25 05:12 05/09/25 03:13 A&P Assessment and plan 1. Intermittent atrial fibrillation: 2. Chronic anticoagulation: 3. Essential hypertension: 4. Coronary arteriosclerosis: 5. Type 2 diabetes mellitus without complication, without long-term current use of insulin: 6. Kidney disease, chronic, stage IV (GFR 15-29 ml/min): 7. COPD (chronic obstructive pulmonary disease): Plan: Discharge home today, continue losartan, spironolactone, Eliquis, statin, aspirin, lasix. Follow up in cardiology clinic in 2 weeks. PDMP PDMP Reviewed: Not Reviewed Attestations 2 Medical Necessity Statement*: md home Coding Level of Care Code Acute Code for [facility] Fwd Diagnoses Intermittent atrial fibrillation I48.0 Chronic anticoagulation Z79.01 Essential hypertension I10 Coronary arteriosclerosis I25.10 Type 2 diabetes mellitus without complication, without long-term current use of insulin E11.9 Diabetes mellitus complication status: without complication Diabetes mellitus custodial insulin use: without terminal clerk use Kidney disease, chronic, stage IV (GFR 15-29 ml/min) N18.4 COPD (chronic obstructive pulmonary disease) J44.9
--- NOTE | 2025-05-09 10:28 | PM.DCS ---
Discharge Providers Date of Admission: 05/06/25 03:26 Date of Discharge: May 09, 2025 Attending Provider at Admission: Raman Parker MD Attending Provider at Discharge: Anthony Liu MD Primary Care Provider: DIONI Bruno Diagnoses at Discharge Discharge Diagnosis 1. Chest pain with high risk for cardiac etiology: 2. Intermittent atrial fibrillation: 3. Chronic anticoagulation: 4. Essential hypertension: 5. Coronary arteriosclerosis: 6. Type 2 diabetes mellitus without complication, without long-term current use of insulin: 7. Kidney disease, chronic, stage IV (GFR 15-29 ml/min): 8. Centrilobular emphysema: Reason for Visit Reason for Visit: sob Brief History: Patient presented to the ER with complaint of difficulty breathing and some atypical chest pain. Hospital Course Hospital Course Patient was admitted to the telemetry floor, and monitored closely. Cardiac enzymes were trended per ACS protocol, with 2 EKGs repeated as needed. The chest pain symptoms were treated empirically; nitroglycerin, morphine, etc. Cardiology was consulted, who made appropriate expert recommendations, which includes cardiac stress test, angiography, etc. Given negative findings, ACS was therefore ruled out.. Patient was therefore recommended by cardiology for discharge. While in the hospital, all other concomitant symptoms were treated empirically. The active chronic medical problems were treated with home medications, as adjusted; blood sugar was controlled with basal-prandial insulin. Overall, patient responded well to treatment, and therefore deemed fit for discharge today. See my discharge orders and discharge instructions for more details. Physical Exam Narrative: General: Awake and alert patient. Resp: No obvious respiratory distress or difficulty breathing. Skin: No obvious rashes or new skin lesions. All other physical findings essentially within normal limits. Discharge Data Studies Completed and Pending Completed Studies During Hospitalization Category Date Time Status Cardiac Stress Test MIBI [Sestamibi Stress Test Request Exams 05/06/25 17:21 Completed ] Routine XR chest 1V portable [id number] Stat Exams 05/06/25 01:33 Completed NM pepe perf SPECT r/s* [id number] Routine Nuc Med 05/07/25 17:21 Completed CV. echo limited [id number] Routine Ultrasound 05/06/25 04:06 Completed Pending at discharge Category Date Time Status CLINICAL EDUCATION ASSISTANT request for service Routine Exams 05/08/25 06:20 Taken Blood Culture Stat Lab 05/06/25 02:07 Received Radiology Impressions Chest X-Ray 05/06/25 01:33 No definite pneumonia. The lung bases are not fully included in the field of view. Vitals Last Vital Signs Temp 97.7 F 05/09/25 07:40 Pulse 75 05/09/25 08:58 Resp 16 05/09/25 08:58 BP 124/67 05/09/25 07:40 Pulse Ox 97 05/09/25 08:58 O2 Del Method Nasal Cannula 05/09/25 08:58 O2 Flow Rate 2 05/09/25 08:58 Discharge Plan Discharge Patient Disposition: Home Health Service Condition: Stable Prescriptions: New losartan 100 mg Tablet 100 mg PO DAILY Qty: 90 3RF Continued aspirin 81 mg tablet,delayed release (DR/EC) 81 mg PO QAM nitroglycerin 0.4 mg tablet, sublingual 0.4 mg sublingual Q5M PRN (Reason: chest pain) Qty: 25 2RF Rx Instructions: do not exceed 3 doses per episode (DME) Diabetic Shoes See Rx Instructions .ROUTE .MEDSUPPLY Qty: 1 0RF Rx Instructions: As directed, with 3 pairs of inserts J P & O ([facility] [place]) pen needle, diabetic [Comfort EZ Pen [place]] 32 gauge x 5/16 needle See Rx Instructions .Route Qty: 100 0RF Rx Instructions: daily (DME) PORTABLE OXYGEN CONCENTRATOR AND SUPPLIES See Rx Instructions .Route .MEDSUPPLY Qty: 1 0RF Rx Instructions: As directed (DME) diabetic shoes with 3 inserts See Rx Instructions .Route .MEDSUPPLY Qty: 1 0RF Rx Instructions: As directed to the shoe guys ([facility] [place]) Auto-Titrating CPAP Device See Rx Instructions .Route Qty: 1 0RF Rx Instructions: 6-14cm (DME) electric powerchair See Rx Instructions .Route .MEDSUPPLY Qty: 1 0RF Rx Instructions: As directed nystatin 100,000 unit/gram ointment 1 applic topical TID Qty: 30 5RF (DME) 2 wheeled walker See Rx Instructions .Route .MEDSUPPLY Qty: 1 0RF Rx Instructions: Use daily (DME) blood sugar diagnostic Strip See Rx Instructions .Route Qty: 100 0RF Rx Instructions: use to check blood sugars once daily (DME) lancets [Accu-Chek Softclix Lancets] Misc See Rx Instructions .Route Qty: 200 0RF Rx Instructions: use to check blood sugar once daily (DME) Diabetic Shoes and 3 inserts See Rx Instructions .Route .MEDSUPPLY Qty: 1 0RF Rx Instructions: As directed by HOME (DME) talavera balance brace, right foot See Rx Instructions .Route .MEDSUPPLY Qty: 1 0RF Rx Instructions: As directed [employer] [place] cholecalciferol (vitamin D3) 1,250 mcg (50,000 unit) capsule See Rx Instructions .ROUTE .COMPLEX Qty: 12 1RF Dose Instruction: TAKE ONE CAPSULE BY MOUTH EVERY monday AT 9am Rx Instructions: TAKE ONE CAPSULE BY MOUTH EVERY Monday AT 9am spironolactone 25 mg tablet See Rx Instructions .ROUTE .COMPLEX Qty: 180 0RF Dose Instruction: TAKE ONE TABLET BY MOUTH TWICE DAILY Rx Instructions: TAKE ONE TABLET BY MOUTH TWICE DAILY amiodarone 200 mg tablet See Rx Instructions .ROUTE .COMPLEX Qty: 90 1RF Dose Instruction: TAKE ONE TABLET BY MOUTH DAILY Rx Instructions: TAKE ONE TABLET BY MOUTH DAILY Eliquis 5 mg tablet See Rx Instructions .ROUTE .COMPLEX Qty: 60 1RF Dose Instruction: TAKE ONE TABLET BY MOUTH TWICE DAILY Rx Instructions: TAKE ONE TABLET BY MOUTH TWICE DAILY rosuvastatin 40 mg tablet 40 mg PO BEDTIME biotin 10,000 mcg capsule 10,000 mcg PO DAILY cetirizine [Zyrtec] 10 mg Tablet 10 mg PO DAILY PRN (Reason: Allergy Symptoms) pantoprazole 40 mg tablet,delayed release (DR/EC) 40 mg PO DAILY amlodipine 10 mg tablet 10 mg PO DAILY 30 Days Qty: 30 0RF furosemide 40 mg tablet 40 mg PO DAILY prochlorperazine maleate 10 mg tablet 10 mg PO BID PRN (Reason: Nausea And Vomiting) Discontinued citalopram 10 mg tablet See Rx Instructions .ROUTE .COMPLEX 90 Days Qty: 90 0RF Dose Instruction: TAKE ONE TABLET BY MOUTH DAILY for 30 days Rx Instructions: TAKE ONE TABLET BY MOUTH DAILY for 90 days Turbine Engineer OK for DC: Cardiology Discharge Order = DC NOW: Discharge Order (Routine); Ordered 05/09/25 Ordered By: Thiago Rodriguez Referrals: [facility] ([facility]) [Outside] Teresa Clifford FNP [Primary Care Provider, Family Practice] - 05/13/25 1:20 pm Lucero Parson FNP [Nurse Practitioner, Cardiology] - 06/02/25 1:30 pm Discharge Diet: Cardiac and Diabetic Discharge Activity: Increase activity as tolerated Patient Instructions: Losartan (By mouth), Kidney Failure, Shortness of Breath (DC), Opioid Safety, Patient Portal & Trudi Instructions Activity Restrictions/Additional Instructions: No lifting over 5 pounds with right arm for 4 days.? Follow-up primary care provider within the next 1 to 2 weeks/as needed. Otherwise, follow-up with information systems security developer as directed Discharge Attestations Time Spent in Discharge Care*: greater than 30 min Quality Metrics Clinical Quality Measures [ No reported AMI, CVA or VTE this stay] Coding Level of Care Code Acute Code for [facility] Diagnoses Chest pain with high risk for cardiac etiology R07.9 Intermittent atrial fibrillation I48.0 Chronic anticoagulation Z79.01 Essential hypertension I10 Coronary arteriosclerosis I25.10 Type 2 diabetes mellitus without complication, without long-term current use of insulin E11.9 Diabetes mellitus complication status: without complication Diabetes mellitus continuous churn buttermaker insulin use: without jail use Kidney disease, chronic, stage IV (GFR 15-29 ml/min) N18.4 Centrilobular emphysema J43.2 COPD type: emphysema Emphysema type: centrilobular
--- NOTE | 2025-05-09 11:51 | PC.SOCIAL ---
IMM Update pg 2 of IMM Updated and reviewed w/ patient. Copy provided and copy dated, initialed and placed in chart.
== END 2025-05-09 11:00 | disposition home health service (06) | DRG 287 ==
LOC: ER 01:41 → CSU 03:29
PROVIDERS: Internal Medicine; Nurse Practitioner Family; Admitting Provider Family Medicine; Emergency Provider Emergency Medicine; PCP Registered Nurse; Visit Provider Family Medicine
PROC: 4A023N7 Measurement of Cardiac Sampling and Pressure, Left Heart, Percutaneous Approach (ICD-10-PCS; principal; 2025-05-08 07:00)
DX: I51.81 Takotsubo syndrome (principal); I42.8 Other cardiomyopathies; N18.4 Chronic kidney disease, stage 4 (severe); E87.1 Hypo-osmolality and hyponatremia; N17.9 Acute kidney failure, unspecified; M35.1 Other overlap syndromes; Z68.42 Body mass index [BMI] 45.0-49.9, adult; R07.89 Other chest pain; I48.91 Unspecified atrial fibrillation; E11.22 Type 2 diabetes mellitus with diabetic chronic kidney disease; I12.9 Hypertensive chronic kidney disease with stage 1 through stage 4 chronic kidney disease, or unspecified chronic kidney disease; E11.51 Type 2 diabetes mellitus with diabetic peripheral angiopathy without gangrene; I70.209 Unspecified atherosclerosis of native arteries of extremities, unspecified extremity; J43.2 Centrilobular emphysema; I25.10 Atherosclerotic heart disease of native coronary artery without angina pectoris; G47.33 Obstructive sleep apnea (adult) (pediatric); K21.9 Gastro-esophageal reflux disease without esophagitis; F32.A Depression, unspecified; F41.9 Anxiety disorder, unspecified; E66.01 Morbid (severe) obesity due to excess calories; E78.5 Hyperlipidemia, unspecified; Z79.82 Long term (current) use of aspirin; Z79.01 Long term (current) use of anticoagulants; Z85.118 Personal history of other malignant neoplasm of bronchus and lung; Z92.21 Personal history of antineoplastic chemotherapy; Z92.3 Personal history of irradiation; Z87.891 Personal history of nicotine dependence; Z95.828 Presence of other vascular implants and grafts; Z95.5 Presence of coronary angioplasty implant and graft
CPT/HCPCS: 36415; 36416; 36591; 36600; 71045; 78452; 80048; 80053; 80061; 82805; 82962; 83036; 83880; 84145; 84443; 84484; 85025; 85049; 85610; 85730; 86140; 87040; 87637; 93005; 93017; 93308; 93458; 94640; 94660; 94664; 96365; 96372; 96375; 99152; 99153; 99285; A9500; C1769; C1887; C1894; J0456; J0696; J1644; J1815; J2250; J2405; J2470; J2785; J2919; J3010; J3490; J7030; J7050; J9999; Q0163; Q9967

== ENCOUNTER 2025-05-13 14:38 | Observation (INO) | payer MEDICARE, SELFPAY ==
--- OUTSIDE RECORDS SUMMARY | 2025-05-06 06:05 | XMS_ITS | Encounter Summary ---
Author Organization [facility] Address [address] [place] [address] Care Team Providers Care Usability Engineer Name Role Phone Teresa Clifford DIONI Primary Care Provider [phone]- [phone] Encounter Details Date Type Department Care Team (Latest Contact Info) Description 05/06/2025 6:05 AM COMBER SETTER - 05/06/2025 11:59 PM [facility] Hospital Encounter [facility] Emergency Medical Services [place] [address] [phone] Ambulance, [facility] [address] [id number] Discharge Disposition: Short term general hospital Social History Tobacco Use Types Packs/Day Years [...] on file Legal Sex Female 12:04 PM COMBER SETTER Gender Identity Not on file Sexual Orientation Not on file documented as of this encounter Medications at Time of Discharge Eliquis 5 mg tablet Take 1 Tablet by mouth 2 times daily. 11/25/2024 furosemide (LASIX) 20 mg tablet Take 1 Tablet by mouth daily. 11/25/2024 rosuvastatin (CRESTOR) 40 mg tablet Take 40 mg by mouth daily at bedtime. pantoprazole (PROTONIX) 40 mg Tablet, Delayed Release (E.C.) Take 40 mg by mouth daily. losartan (COZAAR) 100 mg tablet Take 100 mg by mouth daily. cholecalciferol 1,250 mcg (50,000 unit) Capsule Take by mouth every 7 days. citalopram (CeleXA) 10 mg tablet Take 10 mg by mouth daily. HS potassium CHLORIDE (K-DUR,KLOR-CON M20) 20 mEq Extended Release tablet Take 20 mEq by mouth daily. metoprolol tartrate (LOPRESSOR) 50 mg tablet Take 50 mg by mouth 2 times daily. amiodarone (CORDARONE) 200 mg tablet Take 200 mg by mouth daily. spironolactone (ALDACTONE) 25 mg tablet Take 25 mg by mouth 2 times daily. aspirin (ECOTRIN EC) 81 mg Tablet, Delayed Release (E.C.) Take 81 mg by mouth daily. Biotin 10,000 mcg Capsule Take by mouth daily. simethicone 125 mg Tablet, Chewable Dispense (3) 125 mg Simethicone chewable tablets with prep as directed. 3 Tablet 02/28/2025 documented as of this encounter Plan of Treatment Not on file documented as of this encounter Visit Diagnoses Not on filedocumented in this encounter Care Teams Usability Engineer Relationship Specialty Start Date End Date Teresa Clifford FNP [address] [place] [id number] PCP - General NURSE PRACTITIONER 06/02/17 documented as of this encounter
[2025-05-13] VITALS (14 sets, daily range): BP systolic 82–121; BP diastolic 45–73; PULSE 64–86; RESP 13–20; TEMP 36.4–36.5; O2SAT 96–100; BMI 45.3
--- NOTE | 2025-05-13 14:19 | XRR_ITS ---
PROCEDURE INFORMATION: Exam: XR Chest Exam date and time: 05/13/2025 2:38 PM Age: 70 years old Clinical indication: Cough and dyspnea; Additional info: Dyspnea/cough TECHNIQUE: Imaging protocol: Radiologic exam of the chest. Views: 1 view. COMPARISON: CR (CHEST, ) 05/06/2025 1:33 AM FINDINGS: Tubes, catheters and devices: Right-sided port catheter tip is in the right atrium. An electronic device is again seen projecting over the mediastinum. Lungs: Unremarkable. No consolidation. Pleural spaces: Unremarkable. No pleural effusion. No pneumothorax. Heart/Mediastinum: Unremarkable. No cardiomegaly. Bones/joints: Unremarkable. XR/XR chest 1V portable [id number] IMPRESSION: Right-sided port catheter tip is in the right atrium. No acute cardiopulmonary abnormality.
--- NOTE | 2025-05-13 14:42 | W.ED.GENADLT ---
HPI - General Adult General: Chief complaint: Weakness Stated complaint: Weakness Time Seen by Provider: 05/13/25 14:39 History of Present Illness: 70-year-old female presents emergency room complaining of generalized weakness low blood pressure. She was recently discharged. She generally has not been feeling well. Low-grade fever weakness was hypotensive on arrival Associated symptoms: Deny chest pain, dyspnea or rash Related Data Home Medications ?Medication ?Instructions ?Recorded ?Confirmed aspirin 81 mg tablet,delayed 81 mg PO QAM 06/21/19 05/14/25 release rosuvastatin 40 mg tablet 40 mg PO BEDTIME 10/30/24 05/14/25 biotin 10,000 mcg capsule 10,000 mcg PO DAILY 04/28/25 05/14/25 cetirizine 10 mg tablet (Zyrtec) 10 mg PO DAILY PRN Allergy Symptoms 04/28/25 05/14/25 pantoprazole 40 mg tablet,delayed 40 mg PO DAILY 04/28/25 05/14/25 release prochlorperazine maleate 10 mg 10 mg PO BID PRN Nausea And 05/06/25 05/14/25 tablet Vomiting amiodarone 200 mg tablet 200 mg PO DAILY 05/14/25 05/14/25 apixaban 5 mg tablet (Eliquis) 5 mg PO BID 05/14/25 05/14/25 nystatin 100,000 unit/gram topical 1 applic topical TID PRN Skin 05/14/25 05/14/25 ointment Irritation Previous Rx's ?Medication ?Instructions ?Recorded Diabetic Shoes #1 ea 03/17/21 blood sugar diagnostic #100 ea 01/03/22 lancets (Accu-Chek Softclix #200 ea 01/03/22 Lancets) nitroglycerin 0.4 mg sublingual 0.4 mg sublingual Q5M PRN chest 02/24/22 tablet pain #25 tabs Diabetic Shoes and 3 inserts #1 ea 12/28/22 pen needle, diabetic 32 gauge x #100 ea 05/16/23 5/16 (Comfort EZ Pen [place]) PORTABLE OXYGEN CONCENTRATOR AND #1 ea 11/16/23 SUPPLIES CPAP (Auto-Titrating CPAP) #1 ea 02/12/24 diabetic shoes with 3 inserts #1 ea 04/03/24 talavera balance brace, right foot #1 ea 09/30/24 electric powerchair #1 ea 10/04/24 cholecalciferol (vitamin D3) 1,250 See Rx Instructions .Route 01/13/25 mcg (50,000 unit) capsule .COMPLEX #12 caps 2 wheeled walker #1 ea 04/23/25 cephalexin 250 mg capsule 250 mg PO QID 7 days #20 caps 05/15/25 furosemide 40 mg tablet 20 mg (1/2 x 40 mg) PO DAILY #30 05/15/25 tabs losartan 100 mg tablet 50 mg (1/2 x 100 mg) PO DAILY #90 05/15/25 tabs spironolactone 25 mg tablet 25 mg PO DAILY #30 tabs 05/15/25 Allergies Allergy/AdvReac Type Severity Reaction Status Date / Time Sulfa (Sulfonamide Allergy Unknown Verified 05/13/25 13:10 Antibiotics) sulfamethoxazole (From Allergy itching Verified 05/13/25 13:10 Bactrim) trimethoprim (From Bactrim) Allergy itching Verified 05/13/25 13:10 Review of Systems Const: Denies: fever(s) or chills Card: Denies: chest pain Resp: Denies: dyspnea GI: Denies: abdominal pain : Denies: dysuria, urinary frequency or urinary urgency Musc: Denies: neck pain or back pain Skin/Breast: Denies: rash PFSH ED PFSH: Medical History Non-ST elevation CO (NSTEMI) Dyslipidemia with low high density lipoprotein (HDL) cholesterol with hypertriglyceridemia due to type 2 diabetes mellitus History of cardiovascular stress test 12/2020 nl EKG response, nl myocardial perfusion with no evidence of ischemia Atrial fibrillation with rapid ventricular response History of cardioversion 01/[address] Solano, for difficult to control afib History of PFTs 06/17 moderate airflow obstruction with no significant response to bronchodilators History of Holter monitoring 06/16/2023-06/29/2023 baseline sinus daniel with 1st degree AVB, HR 41.4. Average was 76. Max was 144 bpm, no afib seen Mixed connective tissue disease Small cell lung cancer Port-A-Cath in place placed 08/[address] Kerr Former heavy cigarette smoker (20-39 per day) Quit in 2009 Aortic valve insufficiency, etiology of cardiac valve disease unspecified dx 10/14/02 Dr Kam Martinez, non-rheumatic Arthralgia of both knees Venous insufficiency of both lower extremities Opioid contract exists Obesity Chronic joint pain Anxiety and depression Hyperlipidemia Common migraine with intractable migraine Left Achilles tendinitis Back pain, lumbosacral Type 2 diabetes mellitus without complication, without long-term current use of insulin Essential hypertension COPD (chronic obstructive pulmonary disease) Gastroesophageal reflux disease without esophagitis Surgical History History of cataract surgery History of esophagogastroduodenoscopy (EGD) 10/2024 Dr Kerr with polypectomy/biopsy duodenum and antrum; 02/2025 at [facility] with polypectomy History of incision and drainage (04/2021) Left groin abscess by Dr Zaldivar History of bronchoscopy 07/2023 Bronch with BAL and EBUS sampling of [address] Hurst Hx of colonoscopy with polypectomy 05/2024 Dr Kerr; 02/2025 at [facility] with polypectomy Stented coronary artery 2 stents done 02/16/96 in [place] History of knee replacement 2009, right History of delivery Family History Other CAD (coronary artery disease) Cancer Diabetes Denies family history of Rheumatoid arthritis Lupus Hyperlipidemia Chronic kidney disease (CKD) Hypertension Stroke Social History Smoking and tobacco/nicotine status: former use of tobacco/nicotine (quit 2009) Quit status (tobacco/nicotine): has quit using Year quit tobacco: 2009 Former quit date comment: 3 ppd X 37 years Alcohol intake: never Substance/Drug Use: never Lives independently: No Household members: spouse Marital status: Current occupational status: unemployed Do you think of yourself as: Straight/Heterosexual Current gender identity: Female Physical Exam Const: GENERAL APPEARANCE: cooperative ORIENTATION/CONSCIOUSNESS: Yes awake, Yes oriented to person, Yes oriented to place and Yes oriented to time HENMT: COMMON NORMALS: normocephalic, atraumatic and hearing grossly normal bilaterally HEAD & SCALP: normocephalic and atraumatic Resp: COMMON NORMALS: normal respiratory effort, No retractions, No use of accessory muscles and clear to auscultation bilaterally AUSCULTATION: clear to auscultation bilaterally Cardio: COMMON NORMALS: regular rate, regular rhythm and No murmurs present (Cardio) RATE: regular rate RHYTHM: regular rhythm GI: COMMON NORMALS: Soft to palpation and No hepatosplenomegaly present AUSCULTATION: Yes normoactive bowel sounds PALPATION: Yes Soft to palpation, No Tenderness to palpation present (GI), No Guarding due to palpation present (GI) and Yes No hepatosplenomegaly present Extremity: COMMON NORMALS: normal to inspection, capillary refill normal, no clubbing, cyanosis or edema, no calf tenderness and no pedal edema Neuro: SENSORIUM/ORIENTATION: Yes oriented to person, Yes oriented to place and Yes oriented to time Skin: COMMON NORMALS: no rashes or lesions noted GENERAL SKIN EXAM: no rashes or lesions noted Course Vital Signs: Vital signs: Vital Signs Temperature 97.8 F 05/15/25 12:09 Pulse Rate 72 05/15/25 12:09 Respiratory Rate 17 05/15/25 12:09 Blood Pressure 151/85 05/15/25 12:09 Pulse Oximetry 97 05/15/25 12:09 Oxygen Delivery Me thod Nasal Cannula 05/15/25 11:26 Oxygen Flow Rate 8 05/15/25 11:26 MDM - General Adult Medical Decision Making Patient initial blood pressure was 60/40 improved with fluid bolus to 82/45 105/73 and 94/51. Will admit with cystitis hypotension white count on admission is normal. Does have a mild acute kidney injury with a creatinine of 2.0 potassium is normal. Urine shows 21-50 red blood cells per high-power field CT of the abdomen shows a 10 x 6 stone in the kidney but no hydronephrosis. Initial antibiotics given. Discussed with hospitalist orders written Medical Records I reviewed the patient's medical records. Lab Data I reviewed the patient's lab results. 05/14/25 04:41 05/14/25 04:41 Radiology Impressions Chest X-Ray 05/13/25 14:19 IMPRESSION: Right-sided port catheter tip is in the right atrium. No acute cardiopulmonary abnormality. Abdomen/Pelvis CT 05/13/25 16:37 IMPRESSION: 1. 10 x 6 mm stone in the left kidney and tiny stone in the right kidney. No hydronephrosis. 2. Small hiatal hernia. 3. Other findings as detailed above. Laboratory Results WBC 11.14 10^3/uL (3.29-11.43) 05/13/25 15:06 RBC 4.49 10^6/uL (3.85-5.65) 05/13/25 15:06 Hgb 13.40 g/dL (11.27-16.99) 05/13/25 15:06 Hct 42.1 % (36-47) 05/13/25 15:06 MCV 93.8 fl (85-98) 05/13/25 15:06 MCH 29.8 pg (27-33) 05/13/25 15:06 MCHC 31.8 g/dL (30-55) 05/13/25 15:06 RDW 13.5 % (12.1-15.1) 05/13/25 15:06 Plt Count 165 10^3/cmm (157-399) 05/13/25 15:06 MPV 10.8 fL (7.4-10.4) H 05/13/25 15:06 Neut % (Auto) 76.4 % 05/13/25 15:06 Lymph % (Auto) 10.1 % 05/13/25 15:06 Morrow % (Auto) 7.5 % 05/13/25 15:06 Eos % (Auto) 0.3 % 05/13/25 15:06 Baso % (Auto) 0.3 % 05/13/25 15:06 Neut # (Auto) 8.52 10^3/uL (1.8-7.7) H 05/13/25 15:06 Lymph # (Auto) 1.1 10^3/uL (0.8-4.8) 05/13/25 15:06 Morrow # (Auto) 0.8 10^3/uL (0.2-0.9) 05/13/25 15:06 Eos # (Auto) 0.0 10^3/uL (0.0-0.8) 05/13/25 15:06 Baso # (Auto) 0.0 10^3/uL (0.0-0.1) 05/13/25 15:06 Nucleated RBC % (auto) 0 % 05/13/25 15:06 Nucleated RBCs # 0.0 /100WBC 05/13/25 15:06 Sodium 133 mmol/L (136-145) L 05/13/25 15:06 Potassium 4.4 mmol/L (3.5-5.1) 05/13/25 15:06 Chloride 98 mmol/L (98-107) 05/13/25 15:06 Carbon Dioxide 28 mmol/L (22-29) 05/13/25 15:06 Anion Gap 11.4 (5-19) 05/13/25 15:06 BUN 27 mg/dL (8-23) H 05/13/25 15:06 Creatinine 2.0 mg/dL (0.5-0.9) H 05/13/25 15:06 GFR Calculation 24.8 mL/min (90-130) L 05/13/25 15:06 Glucose 150 mg/dL (65-115) H 05/13/25 15:06 Calculated Osmolality 284 mOsm/kg (285-295) L 05/13/25 15:06 Lactic Acid 1.9 mmol/L (0.5-2.2) 05/13/25 15:06 Calcium 8.9 mg/dL (8.5-10.5) 05/13/25 15:06 Total Bilirubin 0.5 mg/dL (0.15-1.2) 05/13/25 15:06 AST 11 U/L (0-32) 05/13/25 15:06 ALT 26 U/L (0-33) 05/13/25 15:06 Alkaline Phosphatase 41 U/L (35-105) 05/13/25 15:06 Total Protein 5.6 g/dL (6.6-8.7) L 05/13/25 15:06 Albumin 3.4 g/dL (3.5-5.2) L 05/13/25 15:06 Globulin 2.2 g/dL (1.3-4.6) 05/13/25 15:06 Urine Color Yellow (Yellow) 05/13/25 16:02 Urine Appearance Turbid (CLEAR) A 05/13/25 16:02 Urine pH 7.0 (5-7) 05/13/25 16:02 Ur Specific Porter 1.007 (1.005-1.030) 05/13/25 16:02 Urine Protein Negative (Negative) 05/13/25 16:02 Urine Glucose (UA) Negative (Normal) 05/13/25 16:02 Urine Ketones Negative (Negative) 05/13/25 16:02 Urine Blood 2+ (Negative) A 05/13/25 16:02 Urine Nitrate Negative (Negative) 05/13/25 16:02 Urine Bilirubin Negative (Negative) 05/13/25 16:02 Urine Urobilinogen 0.2 mg/dL (Negative) 05/13/25 16:02 Ur Leukocyte Esterase Trace (Negative) A 05/13/25 16:02 Urine RBC 21-50 /hpf (0-2) H 05/13/25 16:02 Urine WBC 0-5 /hpf (0-5) 05/13/25 16:02 Ur Squamous Epith Cells 6-10 /hpf (0-5) 05/13/25 16:02 Amorphous Sediment 1+ /hpf 05/13/25 16:02 Urine Bacteria 2+ /hpf (NONE) H 05/13/25 16:02 Hyaline Casts 9.51 /lpf 05/13/25 16:02 Influenza A (PCR) Negative (Negative) 05/13/25 17:12 Influenza Type B (PCR) Negative (Negative) 05/13/25 17:12 RSV (PCR) Negative (Negative) 05/13/25 17:12 SARS-CoV-2 (PCR) Negative (Negative) 05/13/25 17:12 All radiology interpretation(s) finalized by discharge EKG Data EKG 1: I personally reviewed and interpreted this EKG as follows: Interpretation: EKG 05/13/2025 1445 ectopic atrial rhythm rate of 71 IA interval 191 QTc 475 right bundle branch block left anterior fascicular block. No acute ST changes noted compared to EKG 05/06/2025 Computer generated interpretation: Chest X-Ray 05/13/25 14:19 IMPRESSION: Right-sided port catheter tip is in the right atrium. No acute cardiopulmonary abnormality. Abdomen/Pelvis CT 05/13/25 16:37 IMPRESSION: 1. 10 x 6 mm stone in the left kidney and tiny stone in the right kidney. No hydronephrosis. 2. Small hiatal hernia. 3. Other findings as detailed above. Discharge Plan Discharge Patient Disposition: Admitted As Inpatient Admit Provider: Anthony Liu Clinical Impression: Intermittent atrial fibrillation, Acute UTI, CARL (acute kidney injury), Acute hypotension, Hyponatremia Condition: Stable Discharge Diet: Advance as tolerated and Usual diet Discharge Activity: Resume usual activity and Increase activity as tolerated Coding Level of Care Code ED Associate Merchant for Jose Angel Harris
--- NOTE | 2025-05-13 14:45 | ECG_ITS ---
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 Measurements Intervals Thompson Rate: 71 P: -52 SD: 191 QRS: -62 QRSD: 145 T: 269 QT: 437 QTc: 475 Interpretive Statements ECTOPIC ATRIAL RHYTHM RIGHT BUNDLE BRANCH BLOCK [120+ ms QRS DURATION, UPRIGHT V1, 40+ ms S IN I/aVL/V4/V5/V6] LEFT ANTERIOR FASCICULAR BLOCK [QRS AXIS <= -45, QR IN I, RS IN II] MODERATE T-WAVE ABNORMALITY, CONSIDER ANTEROLATERAL ISCHEMIA [-0.1+ mV T-WAVE IN V3-V6] MODERATE T-WAVE ABNORMALITY, CONSIDER INFERIOR ISCHEMIA [-0.1+ mV T-WAVE IN II/aVF] Compared to ECG 05/06/2025 07:12:29 Ectopic atrial rhythm now present. Sinus tachycardia no longer present Myocardial infarct finding no longer present. T-wave abnormality still present Possible ischemia still present Electronically Signed On 05-14-2025 08:50:07 [employer] MACHINE TENDER by Donell Tavares M.D. [email or web address]
[2025-05-13 15:47] LABS: Hematocrit 42.1 % (36-47); Hemoglobin 13.40 g/dL (11.27-16.99); Mean Corpuscular HGB Conc 31.8 g/dL (30-55); Mean Corpuscular Hemoglobin 29.8 pg (27-33); Mean Corpuscular Volume 93.8 fl (85-98); Nucleated Red Blood Cells % 0 %; Platelet Count 165 10^3/cmm (157-399); Red Blood Count 4.49 10^6/uL (3.85-5.65); White Blood Count 11.14 10^3/uL (3.29-11.43)
--- NOTE | 2025-05-13 16:04 | PC.NURSE ---
per ER registration, shortly after pt arrival, attempted to contact mother with number provided on EMS facesheet, was unsuccessful with contact. @1600 was able to get ahold of mother with number provided in triage note by pt, mother is allegedly en route at this time.
[2025-05-13 16:09] LABS: Glucose Urine UA Negative (Normal); Nitrate Urine Negative (Negative); Specific Gravity, Urine 1.007 (1.005-1.030)
[2025-05-13 16:14] LABS: Alanine Aminotransferase 26 U/L (0-33); Albumin Level 3.4 g/dL (3.5-5.2); Alkaline Phosphatase 41 U/L (35-105); Anion Gap 11.4 (5-19); Aspartate Amino Transferase 11 U/L (0-32); Blood Urea Nitrogen 27 mg/dL (8-23); Calcium 8.9 mg/dL (8.5-10.5); Carbon Dioxide 28 mmol/L (22-29); Chloride 98 mmol/L (98-107); Creatinine Clr Calc Pharmacy 39.2736; Globulin 2.2 g/dL (1.3-4.6); Glucose 150 mg/dL (65-115); Osmolality Calculated 284 mOsm/kg (285-295); Potassium 4.4 mmol/L (3.5-5.1); Sodium 133 mmol/L (136-145); Total Protein 5.6 g/dL (6.6-8.7)
[2025-05-13 16:15] LABS: Add Urine Microscopic? YES
[2025-05-13 16:15] LABS: Slide Review Slide Review Perform
[2025-05-13 16:34] LABS: UA Slide Review UA Slide Review Perf
--- NOTE | 2025-05-13 16:37 | CTR_ITS ---
PROCEDURE INFORMATION: Exam: CT Abdomen And Pelvis Without Contrast Exam date and time: 05/13/2025 4:46 PM Age: 70 years old Clinical indication: PT presents to ED d/t weakness/hypotension. Was d/c 5-6 days ago. Hematuria TECHNIQUE: Imaging protocol: Computed tomography of the abdomen and pelvis without contrast. Radiation optimization: All CT scans at this facility use at least one of these dose optimization techniques: automated exposure control; mA and/or kV adjustment per patient size (includes targeted exams where dose is matched to clinical indication); or iterative reconstruction. COMPARISON: [place] [id number] 04/09/2025 12:03 PM RADIATION DOSE METRICS: Total DLP (mGy-cm): 1495.09 FINDINGS: Tubes, catheters and devices: Partially visualized catheter or catheters in the right atrium and right ventricle. Lungs: Partially visualized opacities/consolidation in the left lower lobe posteriorly. Diaphragm: Small hiatal hernia. Liver: Normal. No mass. Gallbladder and biliary ducts: Normal. No calcified stones. No ductal dilation. Pancreas: Normal. No ductal dilation. Spleen: Punctate occasions in the spleen consistent with old granulomatous disease. Adrenal glands: Normal. No mass. Kidneys and ureters: In the upper pole of the left kidney there is a calculus measuring 10 mm by 6 mm. There is an extrarenal pelvis on the right. Tiny 1-2 mm stone in the right kidney. Stomach and bowel: Diverticulosis of the sigmoid colon. No bowel dilatation or wall thickening. Appendix: No evidence of appendicitis. Intraperitoneal space: Unremarkable. No free air. No significant fluid collection. Vasculature: Unremarkable. No abdominal aortic aneurysm. Lymph nodes: Unremarkable. No enlarged lymph nodes. Urinary bladder: Unremarkable as visualized. Reproductive: Unremarkable as visualized. Bones/joints: Unremarkable. No acute fracture. Soft tissues: Unremarkable. CT/CT kidney stone [id number] IMPRESSION: 1. 10 x 6 mm stone in the left kidney and tiny stone in the right kidney. No hydronephrosis. 2. Small hiatal hernia. 3. Other findings as detailed above.
[2025-05-13] MEDS: cefTRIAXone 1,000 mg SDV 1000 MG IVP (17:08)
[2025-05-13 17:13] LABS: Lactic Sepsis W/Reflex 1.9 mmol/L (0.5-2.2)
--- NOTE | 2025-05-13 18:33 | P.HP_ITS ---
Providers/Chief Complaint 2 Admitting Physician: Anthony Liu MD, MPH Primary Care Provider: DIONI Bruno Chief Complaint: Weakness History of Present Illness Janet Pillai is a 70 year old female who was discharged from this hospital 4 days ago after being treated for suspected ACS, but during which PCI showed negative findings. She was managed then in the cardiac stepdown unit. She comes in today with report of hypotension. Patient reports that she went to the PCP office for follow-up, where she was found to be hypotensive, witth blood pressure reported to be in the 70s/50s. She reported feeling very weak, very dizzy/woozy, and also clammy. On getting to the ER, she was given some fluid boluses, which helped to bring her blood pressure up to the 90s/60s. Urinalysis also revealed some features of UTI, for which she was admitted for further evaluation. She denies any urinary symptoms. Patient reports taking her medications. Recommended, and denies any chest pain, palpitation, difficulty breathing or any other cardiovascular symptoms. Review of Systems 2 Narrative: General: Negative for fever, headaches, dizziness or weakness. Respiration: Negative for shortness of breath, cough or wheezing. CVS: Negative for chest pain, palpitations or dyspnea on exertion. GI: Negative for nausea, vomiting, or diarrhea/constipation. UGS: Negative for dysuria, urgency or increased urinary frequency. All other systems reviewed, and essentially negative, except as in the HPI. Medications/Allergies Home Medications ?Medication ?Instructions ?Recorded ?Confirmed ?Last Taken ?Type aspirin 81 mg tablet,delayed 81 mg PO QAM 06/21/1905/05/25 History release Diabetic Shoes #1 ea 03/17/21 05/12/25 Unkn own Rx blood sugar diagnostic #100 ea 01/03/22 05/12/25 Un known Rx lancets (Accu-Chek Softclix #200 ea 01/03/22 05/12/25 Unknown Rx Lancets) nitroglycerin 0.4 mg sublingual 0.4 mg sublingual Q5M PRN chest 02/24/22 05/12/25 01/10/24 Rx tablet pain #25 tabs Diabetic Shoes and 3 inserts #1 ea 12/28/22 05/12/25 U nknown Rx pen needle, diabetic 32 gauge x #100 ea 05/16/2305/12 Unknown Rx 5/16 (Comfort EZ Pen [place]) PORTABLE OXYGEN CONCENTRATOR AND #1 ea 11/16/23 Unknown Rx SUPPLIES CPAP (Auto-Titrating CPAP) #1 ea 02/12/24 05/12/25 Unk nown Rx diabetic shoes with 3 inserts #1 ea 04/03/24 05/12/25 Unknown Rx talavera balance brace, right foot #1 ea 09/30/24 5 Unknown Rx electric powerchair #1 ea 10/04/24 05/12/25 Unkn own Rx rosuvastatin 40 mg tablet 40 mg PO BEDTIME 10/30/2405/04/25 History cholecalciferol (vitamin D3) 1,250 See Rx Instructions .Route 01/13/25 05/12/25 04/30/25 Rx mcg (50,000 unit) capsule .COMPLEX #12 caps spironolactone 25 mg tablet See Rx Instructions .Route 02/25/25 05/12/25 05/05/25 Rx .COMPLEX #180 tabs amiodarone 200 mg tablet See Rx Instructions .Route 1 05/12/25 05/05/25 Rx .COMPLEX #90 tabs nystatin 100,000 unit/gram topical 1 applic topical TI D #30 grams 04/22/25 05/12/25 05/05/25 Rx ointment 2 wheeled walker #1 ea 04/23/25 05/12/25 Unkn own Rx apixaban 5 mg tablet (Eliquis) See Rx Instructions .Ro bill 04/28/25 05/12/25 05/05/25 Rx .COMPLEX #60 tabs biotin 10,000 mcg capsule 10,000 mcg PO DAILY 04/28/25 05/12/25 05/05/25 History cetirizine 10 mg tablet (Zyrtec) 10 mg PO DAILY PRN Al lergy Symptoms 04/28/25 05/12/25 Unknown History pantoprazole 40 mg tablet,delayed 40 mg PO DAILY 04/2805/12/25 05/05/25 History release amlodipine 10 mg tablet 10 mg PO DAILY 30 days #30 t abs 04/30/25 05/12/25 05/05/25 Rx furosemide 40 mg tablet 40 mg PO DAILY 05/06/2504/2605/05/25 History prochlorperazine maleate 10 mg 10 mg PO BID PRN Nausea And 05/06/25 05/12/25 Unknown History tablet Vomiting losartan 100 mg tablet 100 mg PO DAILY #90 tabs 05/12/25 Unknown Rx Allergies Allergy/AdvReac Type Severity Reaction Status Date / Time Sulfa (Sulfonamide Allergy Unknown Verified 05/13/25 13:10 Antibiotics) sulfamethoxazole (From Allergy itching Verified 05/13/25 13:10 Bactrim) trimethoprim (From Bactrim) Allergy itching Verified 05/13/25 13:10 PFSH Acute 2 PFSH: Medical History Non-ST elevation [place] (NSTEMI) Dyslipidemia with low high density lipoprotein (HDL) cholesterol with hypertriglyceridemia due to type 2 diabetes mellitus History of cardiovascular stress test 12/2020 nl EKG response, nl myocardial perfusion with no evidence of ischemia Atrial fibrillation with rapid ventricular response History of cardioversion 01/[address] Solano, for difficult to control afib History of PFTs 06/17 moderate airflow obstruction with no significant response to bronchodilators History of Holter monitoring 06/16/2023-06/29/2023 baseline sinus daniel with 1st degree AVB, HR 41.4. Average was 76. Max was 144 bpm, no afib seen Mixed connective tissue disease Small cell lung cancer Port-A-Cath in place placed 08/[address] Kerr Former heavy cigarette smoker (20-39 per day) Quit in 2009 Aortic valve insufficiency, etiology of cardiac valve disease unspecified dx 10/14/02 Dr Kam Martinez, non-rheumatic Arthralgia of both knees Venous insufficiency of both lower extremities Opioid contract exists Obesity Chronic joint pain Anxiety and depression Hyperlipidemia Common migraine with intractable migraine Left Achilles tendinitis Back pain, lumbosacral Type 2 diabetes mellitus without complication, without long-term current use of insulin Essential hypertension COPD (chronic obstructive pulmonary disease) Gastroesophageal reflux disease without esophagitis Surgical History History of cataract surgery History of esophagogastroduodenoscopy (EGD) 10/2024 Dr Kerr with polypectomy/biopsy duodenum and antrum; 02/2025 at [facility] with polypectomy History of incision and drainage (04/2021) Left groin abscess by Dr Zaldivar History of bronchoscopy 07/2023 Bronch with BAL and EBUS sampling of [address] Hurst Hx of colonoscopy with polypectomy 05/2024 Dr Kerr; 02/2025 at [facility] with polypectomy Stented coronary artery 2 stents done 02/16/96 in [place] History of knee replacement 2009, right History of delivery Family History Other CAD (coronary artery disease) Cancer Diabetes Denies family history of Rheumatoid arthritis Lupus Hyperlipidemia Chronic kidney disease (CKD) Hypertension Stroke Social History Smoking and tobacco/nicotine status: former use of tobacco/nicotine (quit 2009) Quit status (tobacco/nicotine): has quit using Year quit tobacco: 2009 Former quit date comment: 3 ppd X 37 years Alcohol intake: never Substance/Drug Use: never Lives independently: No Household members: spouse Marital status: Current occupational status: unemployed Do you think of yourself as: Straight/Heterosexual Current gender identity: Female Vitals/I&O/Wt Last Vital Signs Temp 97.7 F 05/13/25 14:39 Pulse 65 05/13/25 16:03 Resp 20 H 05/13/25 14:39 BP 103/73 05/13/25 16:03 Pulse Ox 96 05/13/25 16:03 O2 Del Method Nasal Cannula 05/13/25 16:03 O2 Flow Rate 2 05/13/25 16:03 Weight last 48 hrs Weight 135.171 kg Physical Exam 2 Narrative: General: Morbidly obese patient. Quite a bit. Awake and alert. No obvious respiratory distress. Neuro/Psych: Cranial nerves II to XII grossly intact. No obvious focal deficits. Chest/Resp: Bilateral equal air entry; chest clinically clear. CVS: Rhythm: Regular heart rate and rhythm. No obvious murmurs appreciated. GI: Soft and non-tender abdomen. No obvious organomegaly. Extremities: Bilateral equal pulses. No obvious pitting pedal edema. Skin: No obvious skin rashes or significant lesions. Mild to moderate dry mucous membrane. Few recent ecchymosis noted. MSK: No obvious joint effusions or bony deformities noted. No apparent muscle tenderness. Data 05/13/25 15:06 05/13/25 15:06 Micro: Microbiology 05/13/25 18:07 Blood Culture - Preliminary Blood SPECIMEN COLLECTED 05/13/25 18:06 Blood Culture - Preliminary Blood SPECIMEN COLLECTED CT Abd/Pel: Radiologist's impression: 10 x 6 mm stone in the left kidney and tiny stone in the right kidney. No hydronephrosis. Small hiatal hernia EKG 1: My Interpretation: Sinus rhythm with some ectopic rhythms. A&P Assessment and plan 1. Acute hypotension: Cause unknown. Suspect iatrogenic etiology for 2. Acute UTI: Based on urinalysis findings. No obvious urinary symptoms. Waiting for urine culture. 3. Intermittent atrial fibrillation: Currently stable. 4. Atherosclerosis of [place] coronary artery of [place] heart without angina pectoris: Stable at this time. 5. Chronic anticoagulation: Stable. Plan: Place patient in observation. Rehydrate with NS at 100 cc/h until tomorrow or up to 2L, only.. Otherwise, increase or decrease the fluid dose/rate as needed. Watch out for fluid overload. Hold all antihypertensive and home diuretics. Repeat BMP in the morning. Await urine culture result. In the meantime, continue on IV Rocephin. Get daily weight. Further changes to be made as clinical picture evolves. See my orders for more details. PDMP PDMP Reviewed: Not Reviewed Attestations 2 Medical Necessity Statement*: N/A Coding Level of Care Code Acute Code for Chg Fwd Diagnoses Acute hypotension I95.9 Acute UTI N39.0 Intermittent atrial fibrillation I48.0 Atherosclerosis of [place] coronary artery of [place] heart without angina pectoris I25.10 [place] vs. transplanted heart: [place] heart Chronic anticoagulation Z79.01
[2025-05-13] MEDS: pantoprazole 40 mg SDV IVP (19:23)
[2025-05-13 20:33] LABS: Respiratory Syncytial Virus Ce NEGATIVE (Negative); SARS-CoV-2 PCR NEGATIVE (Negative)
[2025-05-14] VITALS (7 sets, daily range): BP systolic 97–127; BP diastolic 62–77; PULSE 70–90; RESP 16–18; TEMP 36.3–36.8; O2SAT 96–100
--- OUTSIDE RECORDS SUMMARY | 2025-05-14 05:27 | XMS_ITS | Encounter Summary ---
Author Organization [facility] Address 5 [facility] Attn: [place] [address] Care Team Providers Care Health Plan Manager Name Role Phone Teresa Clifford Primary Care Provider [phone] Encounter Details Date Type Department Care Team (Latest Contact Info) Description 03/20/1992 Emergency Social History Tobacco Use Types Packs/Day Years Used Date Smoking Tobacco: Never Assessed Comments Unknown Sex and Gender Information Value Date Recorded Sex Assigned at Not on file Legal Sex Female 10:11 AM APARTMENT MAINTENANCE MANAGER Gender Identity Not on file Sexual Orientation Not on file documented as of this encounter Plan of Treatment Not on file documented as of this encounter Visit Diagnoses Not on filedocumented in this encounter Care Teams Health Plan Manager Relationship Specialty Start Date End Date Teresa Clifford FNP [address] [place] [address] PCP - General NURSE PRACTITIONER 06/02/17 documented as of this encounter
--- OUTSIDE RECORDS SUMMARY | 2025-05-14 05:27 | XMS_ITS | Encounter Summary ---
Author Organization [facility] Address 5 [facility] Attn: Epic Prelude ADT [place] [address] Care Team Providers Care Painting Trades Worker Name Role Phone Teresa Clifford Primary Care Provider [phone] Encounter Details Date Type Department Care Team (Latest Contact Info) Description 12/12/1991 Emergency Ray Munguia MD NO ADDRESS ON FILE Social History Tobacco Use Types Packs/Day Years Used Date Smoking Tobacco: Never Assessed Comments Unknown Sex and Gender Information Value Date Recorded Sex Assigned at Not on file Legal Sex Female 10:11 AM REFERRAL AGENT Gender Identity Not on file Sexual Orientation Not on file documented as of this encounter Plan of Treatment Not on file documented as of this encounter Visit Diagnoses Not on filedocumented in this encounter Care Teams Painting Trades Worker Relationship Specialty Start Date End Date Teresa Clifford FNP [address] [place] [address] PCP - General NURSE PRACTITIONER 06/02/17 documented as of this encounter
--- OUTSIDE RECORDS SUMMARY | 2025-05-14 05:27 | XMS_ITS | Clinical Summary ---
Author Organization [facility] [employer] Address [address] [place] [address] Phone Care Team Providers Care Family Law Attorney Name Role Phone Unavailable Primary Care Provider Unavailabl e Encounters Date Type Department Care Team Description 04/23/2025 Telephone [facility] [employer] [employer] [address] [place] [address] Toro Silverio MD 04/23/2025 Transcribe Orders [facility] [employer] [address] [place] [address] Teresa Clifford NP Chronic kidney [...] 04/23/2025 Diabetes: Visual Foot Exam 04/23/[address] [facility] [place] MCR Adv ([id number])
--- OUTSIDE RECORDS SUMMARY | 2025-05-14 05:27 | XMS_ITS | Encounter Summary ---
Author Organization [facility] Address 5 [facility] Attn: Epic Prelude ADT [place] [address] Care Team Providers Care Braille Teacher Name Role Phone Teresa Clifford Primary Care Provider Encounter Details Date Type Department Care Team (Latest Contact Info) Description 12/09/1991 Emergency Andrews Honeycutt MD [facility] [place] [address] Social History Tobacco Use Types Packs/Day Years Used Date Smoking Tobacco: Never Assessed Comments Unknown Sex and Gender Information Value Date Recorded Sex Assigned at Not on file Legal Sex Female 10:11 AM AIRPORT OPERATIONS SPECIALIST Gender Identity Not on file Sexual Orientation Not on file documented as of this encounter Plan of Treatment Not on file documented as of this encounter Visit Diagnoses Not on filedocumented in this encounter Care Teams Braille Teacher Relationship Specialty Start Date End Date Teresa Clifford FNP [address] [place] [address] PCP - General NURSE PRACTITIONER 06/02/17 documented as of this encounter
--- OUTSIDE RECORDS SUMMARY | 2025-05-14 05:28 | XMS_ITS | Encounter Summary ---
Author Organization [facility] Address [address] [facility] Attn: Epic Prelude ADT [place] [address] Care Team Providers Care Skin Tanner Name Role Phone Teresa Clifford Primary Care Provider [phone] Encounter Details Date Type Department Care Team (Late st Contact Info) Description 04/28/1992 Outpatient Historical Candido Marlow MD [address] [place] [id number] Social History Tobacco Use Types Packs/Day Years Used Date Smoking Tobacco: Never Assessed Comments Unknown Sex and Gender Information Value Date Recorded Sex Assigned at Not on file Legal Sex Female 10:11 AM GEOTECHNICIAL PROPERTIES TECHNICIAN Gender Identity Not on file Sexual Orientation Not on file documented as of this encounter Plan of Treatment Not on file documented as of this encounter Visit Diagnoses Not on filedocumented in this encounter Care Teams Skin Tanner Relationship Specialty Start Date End Date Teresa Clifford FNP [address] [place] [address] PCP - General NURSE PRACTITIONER 06/02/17 documented as of this encounter
--- OUTSIDE RECORDS SUMMARY | 2025-05-14 05:28 | XMS_ITS | Encounter Summary ---
Author Organization [facility] [employer] Address [address] [address] Phone Care Team Providers Care Electrical Controls Designer Name Role Phone Unavailable Primary Care Provider Unavailabl e Reason for Referral * Consultation (Routine) - Closed Specialty Diagnoses / Procedures Referred By Lew t Referred To Contact Nephrology Diagnoses Chronic kidney disease, Stage IV (severe) (HCC) Teresa Clifford NP [address] [place] [address] Phone: tel: fax: Toro Silverio MD [address] [address] Phone: tel: fax: Referral ID Status Reason Start Date Expiration Date V isits Requested Visits Authorized [id number] Closed Consult and Treat 04/23/2025 04/23/2026 1 1 Encounter Details Date Type Department Care Team (Latest Contact Info) Description 04/23/2025 Transcribe Orders [facility] [employer] [employer] [address] [address] Teresa Clifford NP [address] [place] [address] Chronic kidney disease, Stage IV [...] Routine Chronic kidney disease, Stage IV (severe) ([facility]) Expected: 04/23/2025, Expires: 05/24/2026 documented as of this encounter Visit Diagnoses Diagnosis Chronic kidney disease, Stage IV (severe) (HCC)- Primary Chronic kidney disease, Stage IV (severe) documented in this encounter
--- OUTSIDE RECORDS SUMMARY | 2025-05-14 05:28 | XMS_ITS | Clinical Summary ---
Author Organization [facility] Address [address] [facility] [address] Sanchez: Epic Prelude ADT [place] [address] Care Team Providers Care Elderly Caregiver Name Role Phone Venessa, Daniloque DIONI Primary Care Provider [phone] Allergies No known active allergies Medications Eliquis [...] Encounters Date Type Department Care Team Description 05/06/2025 6:05 AM CONSUMER INSIGHTS SPECIALIST - 05/06/2025 11:59 PM CONSUMER INSIGHTS SPECIALIST Hospital Encounter [facility] [place] [address] [place] [address] Ambulance, Orn [facility] Discharge Disposition: [facility] 04/23/2025 External Device Data STL ABSTRACTION Provider, Abstract 04/23/2025 External Device Data STL ABSTRACTION Provider, Abstract 04/16/2025 External Device Data ST[place] ABSTRACTION Provider, Abstract 04/15/2025 External Device Data STL ABSTRACTION Provider, Abstract 03/25/2025 Results Follow-Up [facility] - [place] [address] [facility] [address] [place] [id number] Danielle Pandey DO PATHOLOGY 03/20/2025 2:19 PM CDT Anesthesia Event [facility] [address] [place] [phone] Nadeem Peralta MD Le, Andrew N, AA 03/20/2025 1:20 PM CDT - 03/20/2025 1:40 PM CDT Surgery [facility] [address] [place] [phone] Danielle Pandey DO ESOPHAGOGASTRODUODENOSCOPY 03/20/2025 11:21 AM CDT - 03/20/2025 3:36 PM CDT Hospital Encounter [facility] [address] [place] [phone] Danielle Pandey DO Discharge Disposition: Home or [...] on file Legal Sex Female 12:04 PM CONSUMER INSIGHTS SPECIALIST Gender Identity Not on file Sexual [...] CDT PATHOLOGY Pathology 03/20/2025 2:28 PM CDT MT ESOPHAGOGASTRODUODENOSCOP Y TRANSORAL DIAGNOSTIC 03/20/2025 1:20 PM CDT Polyp of stomach and duodenum Benign polyp of duodenum Case Notes Pt req in afternoon/ [address] in Procedure :DBL Special Notes: pos 2 day prep Dx: Polyp of stomach and duodenum Benign polyp of duodenum BT:Eliquis (apoxaban) 2 days BT managed by: Diabetic: YES Diabetic/WT med:NONE LOC & REASON:[id number] BMI: 45.5 Last Procedure date & location egd 11/06/24 [facility] Referring Provider MARIVEL WATERMAN GI Doc:Any Insurance: anth Last GI appt colon 06/06/24 [facility] DIABETES EYE EXAM 09/08/2020 12:00 AM CDT from Last 3 Months or Most Recently Relevant to Health Maintenance Results * UPPER ENDOSCOPY REPORT (03/20/2025 3:25 PM CDT) Narrative Procedure Note Danielle Pandey DO - 03/20/2025 3:25 PM CDT [facility] GI Patient Name: Janet Pillai Procedure [...] This is a 70 year old female. [address] [place], [place] Danielle Conte DO GI PROCEDURE ORDERABLE S Final Result * PATHOLOGY (03/20/2025 2:28 PM CDT) CASE REPORT Surgical Pathology Report Case: [id number] Authorizing Provider: Danielle Pandey, Collected: 03/20/2025 02:28 PM DO Ordering Location: [facility] Received: 03/21/2025 07:05 AM Endoscopy Pathologist: Ean Davis MD Specimen: Small Intestine, duodenum 11:34 AM CDT [facility] FINAL DIAGNOSIS A. Small intestine, duodenum, polyps - adenomatous polyp - no high grade dysplasia or malignancy identified. REV:CM Ean Davis MD [id number] 11:34 AM CDT [facility] at 1134 CDT GROSS DESCRIPTION A. Received in formalin labeled Pillai -duodenum polyps are multiple fragments of tissue, 2.0 x 1.5 x 0.2 cm in aggregate. The specimen is submitted in toto in A1. Grossed by: Hilary Taveras MS, PA ([facility]) 11:34 AM CDT [facility] OPERATIVE PROCEDURE 1: ESOPHAGOGASTRODUODENOSCO PY 11:34 AM CDT [facility] CLINICAL INFORMATION Polyp of stomach and duodenum Benign polyp of duodenum 11:34 AM T [facility] COMMENT The SpinVox voice-activated dictation system may have been used [...] determined by the Diagnostic Immunohistochemistry Laboratory of [facility] in compliance with CLIA'88 regulations. Some of these tests rely on the use of analyte specific reagents and are subject to specific labeling requirements by the FDA. All controls show appropriate reactivity. This testing was developed by the Diagnostic Immunohistochemistry Laboratory of [facility]. It has not been cleared or approved by the FDA. The FDA has determined that such clearance or approval is not necessary. 11:34 AM T [facility] Tissue (Small Intestine) Collection / Unknown 03/20/2025 2:28 PM CDT 03/21/2025 7:05 AM CDT Comment:Verified by mb / cp Teresa Clifford FNP Danielle Thrasher Conte DO PATHOLOGY/CYTOLOGY ORD ERABLES Final Result [facility] [id number] [address] [place] [id number] * DIABETES EYE EXAM (09/08/2020 12:00 AM CDT) Sgf Scanning HEALTH MAINTENANCE Final Result from Last 3 Months or Most Recently Relevant to Health Maintenance Insurance [address] [place] [address] BCBS MEDICARE HMO Advance Directives For more information, please contact: [phone] * Full Code (Latest Code Status on File) Date Activated Date Inactivated Comments 03/20/2025 12:13 PM 03/20/2025 5:36 PM Care Teams Elderly Caregiver Relationship Specialty Start Date End Date Teresa Clifford FNP [address] [place] [address] PCP - General NURSE PRACTITIONER 06/02/17
--- OUTSIDE RECORDS SUMMARY | 2025-05-14 05:28 | XMS_ITS | Clinical Summary ---
Author Organization [facility] Address [address] [facility] [address] [place] [address] Phone Care Team Providers Care Fuel Conversion Technician Name Role Phone Teresa Clifford HEAD FILTER PRESS TENDER Primary Care Provider Social History Tobacco Use Types Packs/Day Years Used Date Smoking Tobacco: Never Assessed Comments Unknown Sex and Gender Information Value Date Recorded Sex Assigned at Not on file Legal Sex Female 10:11 AM SHANK SKINNER Gender Identity Not on file Sexual Orientation [...] MEDICARE PART A AND B Care Teams Fuel Conversion Technician Relationship Specialty Start Date End Date Teresa Clifford FNP [address] [place] [address] PCP - General NURSE PRACTITIONER 06/02/17
--- OUTSIDE RECORDS SUMMARY | 2025-05-14 05:28 | XMS_ITS | Encounter Summary ---
Author Organization [facility] Address [address] [facility] Attn: Epic Prelude ADT [place] [address] Care Team Providers Care Mobile Home Set Up Person Name Role Phone Teresa Clifford Primary Care Provider Encounter Details Date Type Department Care Team (Latest Contact Info) Description 04/03/1992 Emergency Andrews Honeycutt MD [facility] [place] [address] Social History Tobacco Use Types Packs/Day Years Used Date Smoking Tobacco: Never Assessed Comments Unknown Sex and Gender Information Value Date Recorded Sex Assigned at Not on file Legal Sex Female 10:11 AM SCREW MACHINE HAND Gender Identity Not on file Sexual Orientation Not on file documented as of this encounter Plan of Treatment Not on file documented as of this encounter Visit Diagnoses Not on filedocumented in this encounter Care Teams Mobile Home Set Up Person Relationship Specialty Start Date End Date Teresa Clifford FNP [address] [place] [address] PCP - General NURSE PRACTITIONER 06/02/17 documented as of this encounter
--- OUTSIDE RECORDS SUMMARY | 2025-05-14 05:28 | XMS_ITS | Encounter Summary ---
Author Organization [facility] Address [address] [place] [address] Care Team Providers Care Sessions Clerk Name Role Phone Teresa Clifford Primary Care Provider [phone] Encounter Details Date Type Department Care Team (Late st Contact Info) Description 06/02/2017 Ancillary Orders [facility] Admitting [address] [place] [address] Teresa Clifford FNP [address] [place] [phone] Right wrist pain Social History Tobacco Use Types Packs/Day Years Used Date Smoking Tobacco: Never Assessed Comments Unknown Sex and Gender Information Value Date Recorded Sex Assigned at Not on file Legal Sex Female 10:11 AM BIOASSAYIST Gender Identity Not on file Sexual Orientation Not on file documented as of this encounter Plan of Treatment Not on file documented as of this encounter Results * XR WRIST 3+ VW RIGHT (06/02/2017 12:25 PM BIOASSAYIST) Anatomical Region Laterality Modality Wrist / Hand Computed Radiogr aphy 06/02/2017 12:2 6 PM BIOASSAYIST Impressions 06/02/2017 12:51 PM BIOASSAYIST IMPRESSION: Please see below. Exam: XR WRIST [...] forearm documented in this encounter Care Teams Sessions Clerk Relationship Specialty Start Date End Date Teresa Clifford FNP [address] [place] [phone] PCP - General NURSE PRACTITIONER 06/02/17 documented as of this encounter
--- OUTSIDE RECORDS SUMMARY | 2025-05-14 05:28 | XMS_ITS | Encounter Summary ---
Author Organization [facility] Address [address] 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
--- OUTSIDE RECORDS SUMMARY | 2025-05-14 05:28 | XMS_ITS | Encounter Summary ---
Author Organization [facility] Address [address] [facility] Attn: Epic Prelude ADT [place] [address] Care Team Providers Care Immigration Law Specialist Name Role Phone Teresa Clifford Primary Care Provider Encounter Details Date Type Department Care Team (Late st Contact Info) Description 05/07/1992 Outpatient Historical Pedro Jennings MD [address] [place] [phone] Social History Tobacco Use Types Packs/Day Years Used Date Smoking Tobacco: Never Assessed Comments Unknown Sex and Gender Information Value Date Recorded Sex Assigned at Not on file 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
[2025-05-14 05:29] LABS: Hematocrit 39.7 % (36-47); Hemoglobin 12.50 g/dL (11.27-16.99); Mean Corpuscular HGB Conc 31.5 g/dL (30-55); Mean Corpuscular Hemoglobin 30.7 pg (27-33); Mean Corpuscular Volume 97.5 fl (85-98); Nucleated Red Blood Cells % 0 %; Platelet Count 126 10^3/cmm (157-399); Red Blood Count 4.07 10^6/uL (3.85-5.65); White Blood Count 8.05 10^3/uL (3.29-11.43)
[2025-05-14 05:44] LABS: Anion Gap 13.5 (5-19); Blood Urea Nitrogen 25 mg/dL (8-23); Calcium 8.2 mg/dL (8.5-10.5); Carbon Dioxide 24 mmol/L (22-29); Chloride 104 mmol/L (98-107); Glucose 105 mg/dL (65-115); Magnesium 1.6 mg/dL (1.7-2.3); Osmolality Calculated 289 mOsm/kg (285-295); Potassium 4.5 mmol/L (3.5-5.1); Sodium 137 mmol/L (136-145)
[2025-05-14 06:29] LABS: Slide Review Slide Review Perform
--- NOTE | 2025-05-14 09:35 | PC.CHAP ---
Pastoral Care Encounter/Spiritual Assessment Type of Contact [] Declined circulation worker visit [] Patient/Family/Request visit [] Outpatient visit [] Follow-up visit [] Physician referral [] Code/Alert [x] Routine visit [] Staff referral [] Actively dying [] Patient sleeping [x] Family support [] [] Out of room [] Palliative care [] [] Receiving care in room [] Pre-surgical visit [] Trauma [] Long length of stay [] ICU visit [] Other: Relational/Emotional Strength [x] Patient feels connected with others/family/visitors/staff [] Distress [] Loneliness/isolation [] Abandonment Spirituality of Patient [x] Person of Katie [] Attends Presybeterian of their Katie [x] Believes in Prayer [] Reads Bible or Baptism materials [] There are Spiritual issues to be addressed Case Monitor Interventions [x] Prayer [x] Active listening [] Non-anxious presence [x] Spiritual/emotional support [] Crisis/trauma care [] Spiritual counseling [] Bereavement support [] Provided bereavement packet [] Provided Bible/devotional materials [] Provided toy/stuffed animal, coloring book to patient or family member [] Provided Communion [] Anointing/[place] [] Salvation [x] Completed spiritual assessment [] Other: Impact on Illness or Injury [] Angry [] Fearful [] Anxious [] Often cries [] Exhaustion [] Unable to work [] Unable to attend restorationist [] Unable to walk/stand [] Unable to read [] Unable to drive [] Unable to eat/drink [] Unable to sleep [] Unable to be with family [] Patient intubated [] Other: Summary Time spent with patient 5 min
--- NOTE | 2025-05-14 10:36 | PC.PHAR ---
Pt states she stopped Citalopram 10mg daily 04/22/25 90ds, Metoprolol tart. 50mg bid 02/03/25 90ds, and Pot. Chl Er 20meq daily 01/20/25 90ds. Removed from chart
[2025-05-14] MEDS: cefTRIAXone 1,000 mg SDV 1000 MG IVP (10:43)
--- NOTE | 2025-05-14 11:13 | P.PN_ITS ---
Subjective 2 Subjective: Patient is seen this morning the company of the . She reports feeling much better today. No more dizziness or clamminess. Blood pressure has been holding stable so far. Vitals/I&O/Wt Last Vital Signs Temp 97.6 F 05/14/25 07:14 Pulse 79 05/14/25 07:14 Resp 17 05/14/25 07:14 BP 110/77 05/14/25 07:14 Pulse Ox 99 05/14/25 07:14 O2 Del Method Nasal Cannula 05/14/25 07:14 O2 Flow Rate 2 05/14/25 03:38 05/13/25 05/14/25 05/14/25 22:59 06:59 14:59 Intake Total 5850.13 / 5850.13 480 / 480 Balance 5850.13 / 5850.13 480 / 480 Weight last 48 hrs Weight 137.438 kg Weight 137.438 kg Weight 135.171 kg Physical Exam 2 Narrative: General: Awake and alert. Cooperative. Chest/Resp: Normal respiratory chest movts; no obvious respiratory distress. CVS: Rhythm: Regular heart rate and rhythm. GI: Non-distended; No obvious organomegaly. Extremities: No obvious pitting pedal edema. Skin: No obvious new rashes or new skin lesions. Data 05/14/25 04:41 05/14/25 04:41 Micro: Microbiology 05/13/25 18:07 Blood Culture - Preliminary Blood SPECIMEN COLLECTED 05/13/25 18:06 Blood Culture - Preliminary Blood SPECIMEN COLLECTED A&P Assessment and plan 1. Acute hypotension: Resolved at this time. Likely due to combination of acute dehydration, iatrogenic etiology and possible sepsis from UTI. However, this completely resolved x 12 hours. 2. Acute UTI: Obviously resolving. Urine culture pending 3. Hyponatremia: Though mild, and chronic, sodium level normal today. 4. Intermittent atrial fibrillation: Stable. 5. Atherosclerosis of [place] coronary artery of [place] heart without angina pectoris: Stable. 6. Chronic anticoagulation: Plan: Doing fine from the standpoint. I was planning to discharge patient today earlier. However, given recent hospitalization, plus other multiple comorbidities, I will now wait for urine culture result to come in, so that patient can be discharged right antibiotics, as given the diagnosis of acute UTI is a cure. In the meantime, continue cautious rehydration x 2 L only, and the continue to hold home antihypertensive medications. Anticipate discharge tomorrow. PDMP PDMP Reviewed: Not Reviewed Attestations 2 Medical Necessity Statement*: Patient admitted for apparent severe clinical condition, as outlined in the Assessment & Plan section above. Patient will need at least another midnight stay, estimated, at least, to adequately and appropriately treat and optimally control above-named clinical conditions,. Coding Level of Care Code Acute Code for Chg Fwd Diagnoses Acute hypotension I95.9 Acute UTI N39.0 Hyponatremia E87.1 Intermittent atrial fibrillation I48.0 Atherosclerosis of [place] coronary artery of [place] heart without angina pectoris I25.10 [place] vs. transplanted heart: [place] heart Chronic anticoagulation Z79.01
[2025-05-14] MEDS: pantoprazole 40 mg SDV IVP (16:35)
[2025-05-15 04:00] VITALS: BP 110/62; PULSE 84; RESP 16; TEMP 36.6; O2SAT 90
[2025-05-15 07:25] VITALS: BP 127/59; PULSE 76; RESP 18; TEMP 36.4; O2SAT 100
--- NOTE | 2025-05-15 10:39 | PM.DCS ---
Discharge Providers Date of Admission: 05/13/25 17:44 Date of Discharge: May 15, 2025 Attending Provider at Admission: Anthony Liu MD Attending Provider at Discharge: Anthony Liu MD Primary Care Provider: DIONI Bruno Diagnoses at Discharge Discharge Diagnosis 1. Acute hypotension: 2. Acute UTI: Details from hospital stay: Suspected, not confirmed 3. Hyponatremia: 4. Intermittent atrial fibrillation: 5. Atherosclerosis of [place] coronary artery of [place] heart without angina pectoris: 6. Chronic anticoagulation: Reason for Visit Reason for Visit: Weakness Brief History: Patient presented to the ER with complaint of weakness, clammy feeling, and found to be hypotensive. The cause of this was not clear. But UTI versus iatrogenic etiologies to be suspected. She was admitted to the medical floor, and rehydrated with normal saline. We held all antihypertensives, while monitoring closely. For the UTI, IV Rocephin was started, pending urine culture. Hospital Course Hospital Course Patient's blood pressure gradually improved by the next day, being yesterday. However, we waited patiently for the urine culture, while continuing her on IV Rocephin. The urine culture ended up growing 30,000-40,000 CFU's per mL of superficial madelin, therefore strongly suggesting contamination. Out of abundance of caution, she is discharged today on empiric cephalexin. However, given the patient's BP has remained stable over the last 24 hours, she is therefore discharged on decreased/adjusted dose of her antihypertensives and diuretics. See my discharge orders and discharge instructions for more details. Physical Exam Narrative: General: Awake and alert patient. Resp: No obvious respiratory distress or difficulty breathing. Skin: No obvious rashes or new skin lesions. All other physical findings essentially within normal limits. Discharge Data Studies Completed and Pending Completed Studies During Hospitalization Category Date Time Status CT kidney stone [id number] Stat Cat Scan 05/13/25 16:37 Completed XR chest 1V portable [id number] Stat Exams 05/13/25 14:19 Completed Pending at discharge Category Date Time Status Blood Culture Stat Lab 05/13/25 18:07 Results Urine Culture Stat Lab 05/13/25 16:02 Results Radiology Impressions Chest X-Ray 05/13/25 14:19 IMPRESSION: Right-sided port catheter tip is in the right atrium. No acute cardiopulmonary abnormality. Abdomen/Pelvis CT 05/13/25 16:37 IMPRESSION: 10 x 6 mm stone in the left kidney and tiny stone in the right kidney. No hydronephrosis. Small hiatal hernia. Labs: Urine Culture Preliminary 05/15/25-1024 30,000-40,000 COLS/ML MIXED SUPERFICIAL MADELIN ON DAY 1 Vitals Last Vital Signs Temp 97.6 F 05/15/25 07:25 Pulse 76 05/15/25 07:25 Resp 18 05/15/25 07:25 BP 127/59 05/15/25 07:25 Pulse Ox 100 05/15/25 07:25 O2 Del Method Nasal Cannula 05/15/25 07:25 O2 Flow Rate 8 05/15/25 04:00 Discharge Plan Discharge Patient Disposition: Home Health Service Condition: Stable Prescriptions: New cephalexin 250 mg capsule 250 mg PO QID 7 Days Qty: 20 0RF Continued aspirin 81 mg tablet,delayed release (DR/EC) 81 mg PO QAM nitroglycerin 0.4 mg tablet, sublingual 0.4 mg sublingual Q5M PRN (Reason: chest pain) Qty: 25 2RF Rx Instructions: do not exceed 3 doses per episode (DME) Diabetic Shoes See Rx Instructions .ROUTE .MEDSUPPLY Qty: 1 0RF Rx Instructions: As directed, with 3 pairs of inserts J P & O (DME) pen needle, diabetic [Comfort EZ Pen [place]] 32 gauge x 5/16 needle See Rx Instructions .Route Qty: 100 0RF Rx Instructions: daily (DME) PORTABLE OXYGEN CONCENTRATOR AND SUPPLIES See Rx Instructions .Route .MEDSUPPLY Qty: 1 0RF Rx Instructions: As directed (DME) diabetic shoes with 3 inserts See Rx Instructions .Route .MEDSUPPLY Qty: 1 0RF Rx Instructions: As directed to the shoe guys (DME) Auto-Titrating CPAP Device See Rx Instructions .Route Qty: 1 0RF Rx Instructions: 6-14cm (DME) electric powerchair See Rx Instructions .Route .MEDSUPPLY Qty: 1 0RF Rx Instructions: As directed (DME) 2 wheeled walker See Rx Instructions .Route .MEDSUPPLY Qty: 1 0RF Rx Instructions: Use daily (DME) blood sugar diagnostic Strip See Rx Instructions .Route Qty: 100 0RF Rx Instructions: use to check blood sugars once daily (DME) lancets [Accu-Chek Softclix Lancets] [facility] See Rx Instructions .Route Qty: 200 0RF Rx Instructions: use to check blood sugar once daily (DME) Diabetic Shoes and 3 inserts See Rx Instructions .Route .MEDSUPPLY Qty: 1 0RF Rx Instructions: As directed by HOME (DME) talavera balance brace, right foot See Rx Instructions .Route .MEDSUPPLY Qty: 1 0RF Rx Instructions: As directed [place] [employer] [place] cholecalciferol (vitamin D3) 1,250 mcg (50,000 unit) capsule See Rx Instructions .ROUTE .COMPLEX Qty: 12 1RF Dose Instruction: TAKE ONE CAPSULE BY MOUTH EVERY monday AT 9am Rx Instructions: TAKE ONE CAPSULE BY MOUTH EVERY Monday AT 9am rosuvastatin 40 mg tablet 40 mg PO BEDTIME biotin 10,000 mcg capsule 10,000 mcg PO DAILY cetirizine [Zyrtec] 10 mg Tablet 10 mg PO DAILY PRN (Reason: Allergy Symptoms) pantoprazole 40 mg tablet,delayed release (DR/EC) 40 mg PO DAILY nystatin 100,000 unit/gram ointment 1 applic topical TID PRN (Reason: Skin Irritation) amiodarone 200 mg tablet 200 mg PO DAILY Eliquis 5 mg tablet 5 mg PO BID prochlorperazine maleate 10 mg tablet 10 mg PO BID PRN (Reason: Nausea And Vomiting) Changed furosemide 40 mg tablet 20 mg PO DAILY Qty: 30 0RF spironolactone 25 mg tablet 25 mg PO DAILY Qty: 30 0RF losartan 100 mg Tablet 50 mg PO DAILY Qty: 90 3RF Discontinued amlodipine 10 mg tablet 10 mg PO DAILY 30 Days Qty: 30 0RF Discharge Order = DC NOW: Discharge Order (Routine); Ordered 05/15/25 Ordered By: Anthony Liu Referrals: [facility] Home Care [facility]) [Outside] Teresa Clifford FNP [Primary Care Provider, Family Practice] - 05/20/25 2:20 pm Discharge Diet: Advance as tolerated and Usual diet Discharge Activity: Resume usual activity and Increase activity as tolerated Patient Instructions: Cephalexin (By mouth), Urinary Tract Infection in Women (DC), Hypotension (DC), Opioid Safety, Patient Portal & Trudi Instructions Activity Restrictions/Additional Instructions: The dose of the diuretic and antihypertensive medications have been adjusted down. Amlodipine stopped entirely. Measure and keep a record of her blood pressure daily. Follow-up with PCP, and showed the logs of the BP to him during next office visit. Take medications as prescribed. Discharge Attestations Time Spent in Discharge Care*: less than 30 min Quality Metrics Clinical Quality Measures [ No reported AMI, CVA or VTE this stay] Coding Level of Care Code Acute Code for Chg Fwd Diagnoses Acute hypotension I95.9 Acute UTI N39.0 Hyponatremia E87.1 Intermittent atrial fibrillation I48.0 Atherosclerosis of [place] coronary artery of [place] heart without angina pectoris I25.10 [place] vs. transplanted heart: [place] heart Chronic anticoagulation Z79.01
[2025-05-15] MEDS: cefTRIAXone 1,000 mg SDV 1000 MG IVP (10:50)
[2025-05-15 11:26] VITALS: BP 151/85; PULSE 72; RESP 17; TEMP 36.6; O2SAT 97
--- NOTE | 2025-05-15 11:38 | PC.NURSE ---
Deaccessed port a cath after heparin and saline flush. Applied 2x2 and tegaderm.
[2025-05-15 12:09] VITALS: BP 151/85; PULSE 72; RESP 17; TEMP 36.6; O2SAT 97
== END 2025-05-15 12:09 | disposition home health service (06) ==
LOC: ER 19:04 → MEDSURG 20:21
PROVIDERS: Admitting Provider Family Medicine; Emergency Provider Family Medicine; PCP Registered Nurse; Visit Provider Family Medicine
DX: I95.9 Hypotension, unspecified (principal); N39.0 Urinary tract infection, site not specified; E87.1 Hypo-osmolality and hyponatremia; I48.0 Paroxysmal atrial fibrillation; I25.10 Atherosclerotic heart disease of native coronary artery without angina pectoris; Z79.01 Long term (current) use of anticoagulants; K21.9 Gastro-esophageal reflux disease without esophagitis; Z99.81 Dependence on supplemental oxygen; Z79.82 Long term (current) use of aspirin; Z79.891 Long term (current) use of opiate analgesic; E66.9 Obesity, unspecified; Z68.42 Body mass index [BMI] 45.0-49.9, adult; J44.9 Chronic obstructive pulmonary disease, unspecified; E11.9 Type 2 diabetes mellitus without complications; I10 Essential (primary) hypertension; Z85.118 Personal history of other malignant neoplasm of bronchus and lung; E78.5 Hyperlipidemia, unspecified; Z87.891 Personal history of nicotine dependence
CPT/HCPCS: 36415; 36591; 71045; 74176; 80048; 80053; 81001; 83605; 83735; 85025; 87040; 87086; 87637; 93005; 96361; 96372; 96374; 96375; 96376; 99285; G0378; J0696; J1650; J2470; J7030

== ENCOUNTER → 2025-05-20 15:32 | Outpatient (BNVA) | payer MEDICARE, SELFPAY | PROVIDERS: PCP Registered Nurse; Visit Provider Registered Nurse | DX: N39.0 Urinary tract infection, site not specified (principal) | CPT/HCPCS: 87086 ==